=== PATIENT | male | born 1960 | race Caucasian/White ===

== ENCOUNTER 2024-02-25 12:48 | Observation (INO) | payer OTHER, SELFPAY ==
[2024-02-25] VITALS (16 sets, daily range): BP systolic 100–140; BP diastolic 68–95; PULSE 78–96; RESP 14–20; TEMP 36.4–36.6; O2SAT 93–100; BMI 32.8
--- NOTE | ~2024-02-25 | XR_ITS ---
EXAMINATION: XR chest 2V DATE: 02/25/2024 13:37 INDICATION: Supraventricular tachycardia. TECHNIQUE: Frontal and lateral views of the chest were obtained. COMPARISON: None. FINDINGS: Calcified right lung nodules are consistent with old granulomatous disease. No pleural effu mani or pneumothorax. The heart size is normal. IMPRESSION: 1. No acute cardiopulmonary disease. Reviewed, dictated and finalized at location B.
--- NOTE | 2024-02-25 12:52 | ECG_ITS ---
Test Date: 2024-02-25 13:01:49 Measurements Intervals [place] Rate: 96 P: 6 VA: 137 QRS: -19 QRSD: 103 T: 22 QT: 376 QTc: 475 Interpretive Statements SINUS RHYTHM POSSIBLE LEFT ATRIAL ENLARGEMENT [-0.1mV P-WAVE IN V1/V2] POSSIBLE LEFT VENTRICULAR HYPERTROPHY [VOLTAGE CRITERIA PLUS LAE OR QRS WIDENING] No previous ECG available for comparison Electronically Signed On 02-25-2024 14:49:25 CDT by Cirilo Montague M.D.
[2024-02-25 13:06] LABS: Basophils Percent Auto 0.5 % (0.2-1.2); Eosinophils Absolute Auto 0.1 K/mm3 (0-0.3); Eosinophils Percent Auto 1.3 % (0-4.4); Hematocrit 45.1 % (42.0-52.0); Hemoglobin 16.1 g/dL (14.0-18.0); Immature Granulocyte Absolute 0.03 K/mm3 (0.00-0.031); Immature Granulocyte Percent A 0.5 % (0-0.5); Lymphocytes Absolute Auto 1.17 K/mm3 (0.9-3.2); Mean Corpuscular HGB Conc 35.7 g/dl (32-36); Mean Corpuscular Hemoglobin 33.8 pg (26-34); Mean Corpuscular Volume 94.7 fl (80-100); Mean Platelet Volume 8.8 fl (7.4-10.4); Monocytes Absolute Auto 0.2 K/mm3 (0.1-0.6); Monocytes Percent Auto 2.7 % (2.6-8.5); Neutrophils Absolute Auto 4.1 K/mm3 (1.3-6.7); Platelet Count Result 168 k/mm3 (150-375); Red Blood Count 4.76 M/mm3 (4.6-6.20); Red Cell Distribution Width 13.7 % (11.5-14.5); White Blood Count 5.6 K/mm3 (4.5-10.0)
[2024-02-25 13:16] LABS: Alanine Aminotransferase 37 U/L (6-50); Albumin Level 4.1 g/dL (3.5-5.1); Alkaline Phosphatase 134 U/L (38-126); Anion Gap 11 mmol/L (4-12); Aspartate Amino Transferase 43 U/L (17-59); Bilirubin,Total 0.8 mg/dL (0.2-1.3); Blood Urea Nitrogen 21 mg/dL (9-20); Calcium 9.1 mg/dL (8.4-10.2); Carbon Dioxide 23 mmol/L (22-30); Chloride 105 mmol/L (98-107); Estimated Glomerular Filt Rate 38; Glucose 247 mg/dL (65-110); Lipase 59 U/L (23-300); Potassium 3.7 mmol/L (3.4-5.0); Sodium 139 mmol/L (137-145)
[2024-02-25 13:26] LABS: Troponin I 0.013 ng/mL (0.000-0.034)
[2024-02-25 13:31] LABS: INR 1.1; Prothrombin Time 14.7 Seconds (11.1-14.7)
[2024-02-25 13:34] LABS: Partial Thromboplastin Time 25.4 Seconds (22.3-36.8)
--- NOTE | 2024-02-25 14:08 | ED_ITS ---
HPI - Arrhythmia/Palpitations General Chief Complaint: Arrhythmia/Palpitations Stated Complaint: SVT - resolved Time Seen by Provider: 02/25/24 13:50 History of Present Illness HPI narrative: Pt presents afer episode of CP and SOB starting at 1000. Medics arrived and pt was in SVT. Pt has history of SVT and has been chmically cardioverted several times. Pt was cardioverted under sedation one time. Pt has not seen a cosmetologist apprentice for awhile. Prior cosmetologist apprentice in [place] retired and he has seen a cosmetologist apprentice in [place] but can't remember the name. Pt was synchronized cardioverted by EMS. Pt no longer has CP or SOB. Pt has also had ablation in past. Related Data Home Medications Medication Instructions Recorded Confirmed apixaban 5 mg tablet 5 mg PO BID 02/25/24 02/25/24 tamsulosin 0.4 mg capsule 0.4 mg PO DAILY 02/25/24 02/25/24 Allergies Allergy/AdvReac Type Severity Reaction Status Date / Time [id number] Reductase AdvReac Muscle Pain Verified 02/25/24 13:24 Inhibitor Review of Systems Review of Systems: All systems reviewed & are unremarkable except as noted in HPI and below PMFSH Past Medical History Medical History Atrial fibrillation GERD (gastroesophageal reflux disease) HLD (hyperlipidemia) HTN (hypertension) SVT (supraventricular tachycardia) Urinary hesitancy Surgical History Surgical History History of cardiac radiofrequency ablation History of fracture of left hip miriam implant, 2010 History of lumbar fusion L3-L5 History of rotator cuff surgery R 11/2023, L 2021 Family History Family History Father Acute myocardial infarction Hypertension Sibling Hypertension Social History Social History Smoking packs per day: 1 Smoking cigarettes per day: 20.0 Years smoked: 40 Smoking pack-years: 40.00 Smoking status: Former smoker Tobacco type: cigarettes Second hand tobacco smoke exposure: Yes Additional smoking assessment comments: quit 2003 Alcohol intake: current Substance use: never Do You Feel Safe in your Home?: Yes Lack of Transportation: No Lack of Food: Never True Current Housing: I Have Housing Concerned About Future Housing: No Difficulty Paying Gas/Electric Bills: No Difficulty Paying for Meds: No Currently Unemployed: No Education: Bachelor's Degree Difficulty w/ Childcare or Family Care: No Spiritual care concerns: No Exam Const: General: healthy appearing and no acute distress Nutritional Appearance: well nourished Orientation/consciousness: patient oriented x3 Limitations: no limitations Eyes: Conjunctivae: conjunctivae normal Pupils: Equal, round and reactive pupils present EOM: EOMs intact bilaterally Chest: Chest palpation & inspection: normal inspection of the chest Resp: Effort & Inspection: normal respiratory effort Auscultation: clear to auscultation bilaterally Cardio: Rate: regular rate Rhythm: regular rhythm GI: Auscultation: normal bowel sounds Skin: General skin exam: normal color Rashes: no rashes Wounds: no wounds Neuro: General: patient oriented x3, moves all extremities, no meningeal sig ns, no focal motor deficits and CN's II-XI intact bilaterally Cranial nerves: Yes Nystagmus not present Speech: normal speech Extrem: General: normal to inspection, no clubbing, cyanosis or edema and no pedal edema Psych: Mental Status: mental status grossly normal Affect: normal affect Attitude: cooperative Course Vital Signs Vital signs: Vital Signs Temperature 97.8 F 02/25/24 12:55 Pulse Rate 90 02/25/24 12:55 Respiratory Rate 16 02/25/24 12:55 Blood Pressure 110/80 02/25/24 12:55 Pulse Oximetry 96 02/25/24 12:55 Oxygen Delivery Room Air 02/25/24 12:55 Temperature 97.6 F 02/25/24 19:54 Pulse Rate 83 02/25/24 21:59 Respiratory Rate 18 02/25/24 19:54 Blood Pressure 131/92 H 02/25/24 20:05 Pulse Oximetry 99 02/25/24 19:54 Oxygen Delivery Room Air 02/25/24 12:55 MDM - Arrhythmia/Palpitations MDM Narrative Medical decision making narrative: Pt had svt per EMS with CP and SOB. Not sure of BP. Pt cardioverted and now in nsr and has no CP or SOB. Will check ekg and labs and cxr. labs look fine pt has no CP. Pt had syncopal episode in radiology but did not injure self. will admit for observation. discussed with Leatha and she agrees to observation under Dr Iyer. Differential Diagnosis Differential diagnosis: Likely palpitations, sinus tachycardia, supraventricular tachycardia, ventricular tachycardia and WPW Lab Data 02/25/24 13:01 02/25/24 13:01 Labs: Lab Results 02/25/24 02/25/24 Range/Units 13:01 16:36 WBC 5.6 (4.5-10.0) K/mm3 RBC 4.76 (4.6-6.20) M/mm3 Hgb 16.1 (14.0-18.0) g/dL Hct 45.1 (42.0-52.0) % MCV 94.7 (80-100) fl MCH 33.8 (26-34) pg MCHC 35.7 (32-36) g/dl RDW 13.7 (11.5-14.5) % Plt Count 168 (150-375) k/mm3 MPV 8.8 (7.4-10.4) fl Immature Gran % (Auto) 0.5 (0-0.5) % Neut % (Auto) 74.0 H (45.5-73.1) % Lymph % (Auto) 21.0 (18.3-44.2) % [place] % (Auto) 2.7 (2.6-8.5) % Eos % (Auto) 1.3 (0-4.4) % Baso % (Auto) 0.5 (0.2-1.2) % Lymph # (Auto) 1.17 (0.9-3.2) K/mm3 [place] # (Auto) 0.2 (0.1-0.6) K/mm3 Eos # (Auto) 0.1 (0-0.3) K/mm3 Baso # (Auto) 0.0 (0.0-0.1) K/mm3 Abs Immat Gran (auto) 0.03 (0.00-0.031) K/mm3 Absolute Neuts (auto) 4.1 (1.3-6.7) K/mm3 Absolute Nucleated RBC 0.000 (0.0-0.012) K/mm3 Nucleated RBC % 0.0 (0.0-0.2) % PT 14.7 (11.1-14.7) Seconds INR 1.1 APTT 25.4 (22.3-36.8) Seconds Sodium 139 (137-145) mmol/L Potassium 3.7 (3.4-5.0) mmol/L Chloride 105 (98-107) mmol/L Carbon Dioxide 23 (22-30) mmol/L Anion Gap 11 (4-12) mmol/L BUN 21 H (9-20) mg/dL Creatinine 1.80 H (0.7-1.3) mg/dL Estim Creat Clear Calc Not Reportable Estimated GFR 38 L (59 - ) Glucose 247 H (65-110) mg/dL Calcium 9.1 (8.4-10.2) mg/dL Magnesium 1.7 (1.6-2.3) mg/dL Total Bilirubin 0.8 (0.2-1.3) mg/dL AST 43 (17-59) U/L ALT 37 (6-50) U/L Alkaline Phosphatase 134 H (38-126) U/L Troponin I 0.013 0.375 H* D (0.000-0.034) ng/mL Total Protein 7.0 (6.3-8.2) g/dL Albumin 4.1 (3.5-5.1) g/dL Lipase 59 (23-300) U/L TSH (Reflex) 2.830 (0.465-4.68) uIU/mL Discharge Plan Discharge Clinical Impression: SVT (supraventricular tachycardia), Syncope Patient Disposition: Still a Patient Condition: Stable
--- NOTE | 2024-02-25 15:18 | PM.IMHP ---
H&P: HPI History of Present Illness Date/Time: 02/25/24 15:18 Chief Complaint: Chest Pain and SOB Narrative: 64 y/o M presents here with shortness of breath and chest pain with PMH of SVT, HTN, and AFib. The patient presents here from home via EMS for further evaluation of chest pain, shortness of breath, diaphoresis, and palpitations. Sudden onset of the symptoms occurred at 10:00 a.m. while he was laying down in bed. Upon EMS arrival he was placed on a teletypesetter monitor which showed SVT. He was administered 4 mg of morphine and a synchronized shock was delivered via EMS and he was restored to normal sinus rhythm. Symptoms resolved with gnosticist of NSR. Patient then had a syncopal episode while in imaging, telemetry strip not captured during event. He reports he had stood up for his CXR and was holding the bars, he does not remember the event or having symptoms before. States he had general malaise after episode for about 30 mins and has since resolved. He reports a previous history of SVT which has been treated with cardioversion x3, converted via medications x3, and ablation x3 with last occurrence in November of 2023. [facility] and follows a leadership development instructor there with most recent appt in late November. Does not currently have scheduled follow-up with his leadership development instructor. Would like to find cardiac care outside of the [facility]. No previously known hx of DM. Initial VS at presentation: 97.8? F, HR 90, RR 16, 110/80, and 96% on RA. ED workup showed: No leukocytosis, no anemia, normal coags, creatinine 1.8 and GFR 38 (no previous available for comparison), glucose 247, and initial troponin 0.013. CXR showed no acute cardiopulmonary disease. Initial EKG showed sinus rhythm and possible left atrial enlargement and possible left ventricular hypertrophy. Review of Systems Review of Systems: All systems reviewed & are unremarkable except as noted in HPI and below REPLACED BY [facility] Past Medical History Medical History Atrial fibrillation GERD (gastroesophageal reflux disease) HLD (hyperlipidemia) HTN (hypertension) SVT (supraventricular tachycardia) Urinary hesitancy Surgical History Surgical History History of cardiac radiofrequency ablation History of fracture of left hip miriam implant, 2010 History of lumbar fusion L3-L5 History of rotator cuff surgery R 11/2023, L 2021 Family History Family History Father Acute myocardial infarction Hypertension Sibling Hypertension Social History Social History Smoking packs per day: 1 Smoking cigarettes per day: 20.0 Years smoked: 40 Smoking pack-years: 40.00 Smoking status: Former smoker Tobacco type: cigarettes Second hand tobacco smoke exposure: Yes Additional smoking assessment comments: quit 2003 Alcohol intake: current Substance use: never Do You Feel Safe in your Home?: Yes Lack of Transportation: No Lack of Food: Never True Current Housing: I Have Housing Concerned About Future Housing: No Difficulty Paying Gas/Electric Bills: No Difficulty Paying for Meds: No Currently Unemployed: No Education: Bachelor's Degree Difficulty w/ Childcare or Family Care: No Spiritual care concerns: No Meds Home Medications and Allergies Home Medications Medication Instructions Recorded Confirmed Type apixaban 5 mg tablet 5 mg PO BID 02/25/24 02/25/24 History tamsulosin 0.4 mg capsule 0.4 mg PO DAILY 02/25/24 02/25/24 History Allergies Allergy/AdvReac Type Severity Reaction Status Date / Time [id number] Reductase AdvReac Muscle Pain Verified 02/25/24 13:24 Inhibitor Vital Signs Vital Signs - 24 hr 02/25/24 12:55 02/25/24 14:00 02/25/24 13:30 Temperature 97.8 F Pulse Rate 90 96 95 Respiratory Rate 16 16 16 Blood Pressure 110/80 100/74 101/75 Pulse Oximetry 96 93 93 Oxygen Delivery Room Air Exam Const: General: comfortable and no acute distress Other: , male, nontoxic appearance, obese body habitus HENMT: Face/Nose/Sinus: Normal nares present Mouth: Yes moist mucous membranes Eyes: General: appearance normal, both eyes and all related structures Sclera: sclerae normal Pupils: Equal, round and reactive pupils present EOM: EOMs intact bilaterally Resp: Effort & Inspection: normal respiratory effort Auscultation: clear to auscultation bilaterally Cardio: Rate: regular rate Rhythm: regular rhythm Other: S1-S2 present without murmur, rub, ectopy GI: Other: Abdomen rounded, soft, nontender. Normoactive bowel sounds in all quadrants. Skin: General skin exam: no rashes or lesions noted Wounds: no wounds Other: +odette appearance Neuro: Speech: normal speech Motor exam (neuro): 5/5 motor strength present throughout Sensory Exam: normal sensation Other: A&O x4 Extrem: General: normal to inspection Psych: Mental Status: mental status grossly normal Affect: normal affect Other: Good insight and judgment, pleasant H&P: Results Labs Labs: Short CBC 02/25/24 Range/Units 13:01 WBC 5.6 (4.5-10.0) K/mm3 Hgb 16.1 (14.0-18.0) g/dL Hct 45.1 (42.0-52.0) % Plt Count 168 (150-375) k/mm3 BMP 02/25/24 13:01 Sodium 139 Potassium 3.7 Chloride 105 Carbon Dioxide 23 BUN 21 H Creatinine 1.80 H Glucose 247 H Calcium 9.1 Cardiac Enzymes 02/25/24 Range/Units 13:01 Troponin I 0.013 (0.000-0.034) ng/mL Liver Function 02/25/24 Range/Units 13:01 Total Bilirubin 0.8 (0.2-1.3) mg/dL AST 43 (17-59) U/L ALT 37 (6-50) U/L Alkaline Phosphatase 134 H (38-126) U/L Albumin 4.1 (3.5-5.1) g/dL Assessment and Plan Assessment and plan (1) SVT (supraventricular tachycardia): Code(s): I47.10 - Supraventricular tachycardia, unspecified Status: Acute Assessment and Plan: - EKG, initial: Sinus rhythm, possible left atrial enlargement, possible left ventricular hypertrophy. No previous EKG available for comparison - CXR: No acute cardiopulmonary disease - Troponin: 0.013 -> 0.375, and 3rd troponin ordered. Suspect elevations secondary to cardioversion. No active chest pain. - ASA 324 given - after shared decision making with patient, will hold on Cardiology consultation given chronicity of SVT and lack of chest pain. If 6 hour troponin is significantly elevated compared to prior or if patient has secondary recurrence of symptoms, will add on consultation - add TSH - Mag 1.7, give 1G - no previous echo on file, add bnp - telemetry monitoring (2) Syncope: Code(s): R55 - Syncope and collapse Status: Acute Assessment and Plan: - DDx: MS, orthostatic hypotension, atrial fibrillation, SVT - telemetry monitoring and admission to IMU - trend troponin - orthostatic VS (3) Hyperglycemia: Code(s): R73.9 - Hyperglycemia, unspecified Status: Acute Assessment and Plan: - no hx of DM2 - hypoglycemia protocol - POC blood glucose ACHS - correct regimen ordered - low dose TIDWM, based off TDD - A1C ordered - parent educator consulted (4) HTN (hypertension): Qualifiers: Hypertension type: primary hypertension Qualified Code(s): I10 - Essential (primary) hypertension Code(s): I10 - Essential (primary) hypertension Status: Chronic Assessment and Plan: - chronic, currently 138/90 - continue home medications upon completion of med rec - monitor Plan Partial med rec completed, obtaining records from [facility] for complete medication list. Diet: Heart healthy GI Prophylaxis: Not currently indicated DVT Prophylaxis: Eliquis Lines: Peripheral Code Status: Full code Quality VTE Prophylaxis VTE prophylaxis: pharmacologic ordered Hospitalist MIPS Advance Care Plan I have confirmed that the patient's Advanced Care Plan is present, code status is documented, or surrogate decision maker is listed in patient medical record.: Yes Medication Reconciliation I have utilized all available resources to obtain, update and review the patients current medications (includes all prescriptions, OTC, herbals, cannabis, and nutritional supplements).: Yes
--- NOTE | 2024-02-25 15:51 | ECG_ITS ---
Test Date: 2024-02-25 16:50:14 Measurements Intervals [place] Rate: 79 P: 47 [place]: 188 QRS: -24 QRSD: 98 T: 0 QT: 382 QTc: 439 Interpretive Statements SINUS RHYTHM BORDERLINE LEFT AXIS DEVIATION [QRS AXIS < -20] POSSIBLE LEFT VENTRICULAR HYPERTROPHY [VOLTAGE CRITERIA PLUS LAE OR QRS WIDENING] Compared to ECG 02/25/2024 13:01:49 No significant changes Electronically Signed On 02-26-2024 11:38:44 CDT by Harris Nevarez M.D.
[2024-02-25 16:52] LABS: Magnesium 1.7 mg/dL (1.6-2.3)
[2024-02-25 17:12] LABS: Troponin I 0.375 ng/mL (0.000-0.034)
[2024-02-25] MEDS: MAGNESIUM SULF 1 GM/D5W 100 ML 1 GM/100 ML BAG IVPB (17:16)
--- NOTE | 2024-02-25 17:25 | PC.NURSE ---
GAURAV RIBEIRO IN IMU IS FEEDING A PT AND UNABLE TO TAKE REPORT AT THIS TIME. WILL CALL BACK WHEN AVAILABLE
--- NOTE | 2024-02-25 19:00 | ADMGEN ---
This patient, Markell Rodriguez, was admitted to IMU Room 209-. Patient/family oriented to hospital policies and general routines including ID bracelet, bed and alarms, visiting hours, pain management, procedures, bathroom and other care routines, personal items, smoking policy, room service/diet, and visiting hours. Information on how to activate the Rapid Response Team has been discussed. Patient/Family are encouraged to report perceived risks to care and to ask questions if they do not understand what they are told or what they should do.
[2024-02-25 20:03] LABS: Glucose Point of Care 151 mg/dl (65-105)
[2024-02-25 20:29] LABS: NT Pro B Type Natriuretic Pept 741 pg/mL (19.9-100)
--- NOTE | 2024-02-25 20:34 | ECG_ITS ---
Test Date: 2024-02-25 20:37:38 Measurements Intervals [place] Rate: 83 P: 4 VT: 195 QRS: -20 QRSD: 98 T: 9 QT: 373 QTc: 439 Interpretive Statements SINUS RHYTHM POSSIBLE LEFT VENTRICULAR HYPERTROPHY [VOLTAGE CRITERIA PLUS LAE OR QRS WIDENING] Compared to ECG 02/25/2024 16:50:14 No significant changes Electronically Signed On 02-26-2024 11:41:29 CDT by Harris Nevarez M.D.
[2024-02-25 20:37] LABS: Troponin I 0.767 ng/mL (0.000-0.034)
[2024-02-26] VITALS (14 sets, daily range): BP systolic 131–160; BP diastolic 75–110; PULSE 69–108; RESP 16–19; TEMP 36.6–36.8; O2SAT 93–96
[2024-02-26 05:40] LABS: Hemoglobin A1C 5.4 % (<5.7)
[2024-02-26 08:41] LABS: Glucose Point of Care 109 mg/dl (65-105)
[2024-02-26] MEDS: APIXABAN 5 MG TABLET PO (08:45)
[2024-02-26] MEDS: TAMSULOSIN HCL 0.4 MG CAPSULE PO (08:45)
--- NOTE | 2024-02-26 08:52 | P.CONCA_ITS ---
in addition to above, trend troponin to peak Assessment and Plan Assessment and plan (1) SVT (supraventricular tachycardia): Code(s): I47.10 - Supraventricular tachycardia, unspecified Status: Acute Assessment and Plan: Symptomatic SVT resolved with synchronized cardioversion. He remains in sinus rhythm * Continue Toprol XL 50mg daily * Increase Diltiazem to 360mg daily * Magnesium 1.7 and has been repleted * Recommend outpatient EP referral for consideration of SVT ablation (2) Syncope: Code(s): R55 - Syncope and collapse Status: Acute Assessment and Plan: Etiology unclear. Possibly related to orthostatic hypotension. * Check orthostatic vital signs * Continue telemetry (3) CAD (coronary artery disease): Code(s): I25.10 - Atherosclerotic heart disease of [place] coronary artery without angina pectoris Status: Acute Assessment and Plan: Nonobstructive coronary artery disease, [facility] October 2023 as detailed in HPI * Continue ASA * Continue rosuvastatin 20mg daily * Risk factor modifications for CAD (4) Elevated troponin: Code(s): R79.89 - Other specified abnormal findings of blood chemistry Status: Acute Assessment and Plan: This is not related to ACS/acute plaque rupture. Most likely secondary to tachycardia and cardioversion (5) Atrial fibrillation: Code(s): I48.91 - Unspecified atrial fibrillation Status: Acute Assessment and Plan: Has had multiple AF ablations in the past. Continue Eliquis. Plan Can be discharged later today if he remains stable and asymptomatic. He should follow up with [facility] (has already contacted [facility] in [place] for appt.). History of Present Illness History of Present Illness Consult date/time: 02/26/24 08:52 Reason For Visit: SVT / syncope Narrative: Markell Rodriguez is a 64 year old male with HIV, coronary artery disease, paroxys mal atrial fibrillation, and paroxysmal SVT. He has undergone multiple AF ablations and has had symptomatic SVT for which he takes metoprolol and diltiazem for. He reports 3 episodes of SVT in the past 6 months. In October of this year he was hospitalized after an episode of SVT and chest pain where he underwent left heart catheterization and was found to have nonobstructive coronary artery disease with 50% stenosis in the LCS and 60% stenosis of the ostial PDA. He previously followed with [facility] in [place] but he has since moved to the area and is in the process of becoming established with [facility] in this area. He presented to the emergency department with complaints of chest pain and shortness of breath. Yesterday morning he felt a sudden onset of palpitations with an associated sensation of tightness in his throat and shortness of breath. He called EMS and was found to be in SVT. He was cardioverted by EMS with jehovah's witness of sinus rhythm and brought to the emergency department for further evaluation. His symptoms resolved with jehovah's witness of sinus rhythm. He also reports a syncopal episode that occurred while he was in radiology. He states he was standing up and the next thing he knew he was on the floor. He did not have any symptoms prior to losing consciousness. Telemetry was not in use at the time of syncope. He has had one syncopal episode prior to this that happened at home about 6 months ago. Currently he remains in sinus rhythm and denies any chest pain or shortness of breath. Review of Systems Review of Systems: All systems reviewed & are unremarkable except as noted in HPI and below PMFSH Past Medical History Medical History Atrial fibrillation GERD (gastroesophageal reflux disease) HLD (hyperlipidemia) HTN (hypertension) SVT (supraventricular tachycardia) Urinary hesitancy Surgical History Surgical History History of cardiac radiofrequency ablation History of fracture of left hip miriam implant, 2010 History of lumbar fusion L3-L5 History of rotator cuff surgery R 11/2023, L 2021 Family History Family History Father Acute myocardial infarction Hypertension Sibling Hypertension Social History Social History Smoking packs per day: 1 Smoking cigarettes per day: 20.0 Years smoked: 40 Smoking pack-years: 40.00 Smoking status: Former smoker Tobacco type: cigarettes Second hand tobacco smoke exposure: Yes Additional smoking assessment comments: quit 2003 Alcohol intake: current Substance use: never Do You Feel Safe in your Home?: Yes Lack of Transportation: No Lack of Food: Never True Current Housing: I Have Housing Concerned About Future Housing: No Difficulty Paying Gas/Electric Bills: No Difficulty Paying for Meds: No Currently Unemployed: No Education: Bachelor's Degree Difficulty w/ Childcare or Family Care: No Spiritual care concerns: No Meds Home Medications and Allergies Home Medications Medication Instructions Recorded Confirmed Type apixaban 5 mg tablet 5 mg PO BID 02/25/24 02/25/24 History tamsulosin 0.4 mg capsule 0.4 mg PO DAILY 02/25/24 02/25/24 History Allergies Allergy/AdvReac Type Severity Reaction Status Date / Time [id number] Reductase AdvReac Muscle Pain Verified 02/25/24 13:24 Inhibitor Vital Signs Vital Signs - 24 hr 02/25/24 12:55 02/25/24 14:00 02/25/24 13:30 Temperature 36.6 C Pulse Rate 90 96 95 Respiratory Rate 16 16 16 Blood Pressure 110/80 100/74 101/75 Pulse Oximetry 96 93 93 Oxygen Delivery Room Air 02/25/24 14:30 02/25/24 15:00 02/25/24 15:30 Temperature Pulse Rate 89 82 82 Respiratory Rate 16 16 14 Blood Pressure 117/93 H 101/73 114/68 Pulse Oximetry 95 94 95 Oxygen Delivery 02/25/24 16:00 02/25/24 16:30 02/25/24 17:58 Temperature Pulse Rate 79 78 81 Respiratory Rate 20 16 16 Blood Pressure 133/90 125/83 127/85 Pulse Oximetry 99 100 100 Oxygen Delivery 02/25/24 18:56 02/25/24 19:54 02/25/24 19:36 Temperature 36.5 C 36.4 C 36.4 C Pulse Rate 79 84 84 Respiratory Rate 18 18 18 Blood Pressure 138/90 137/93 H 137/93 H Pulse Oximetry 93 99 99 Oxygen Delivery 02/25/24 20:00 02/25/24 19:50 02/25/24 20:05 Temperature Pulse Rate 85 Respiratory Rate Blood Pressure 140/95 H 131/92 H Pulse Oximetry Oxygen Delivery 02/25/24 21:59 02/26/24 01:41 02/26/24 00:00 Temperature 36.6 C Pulse Rate 83 73 78 Respiratory Rate 18 Blood Pressure 132/75 Pulse Oximetry 93 Oxygen Delivery 02/26/24 02:00 02/26/24 04:00 02/26/24 05:16 Temperature 36.6 C Pulse Rate 69 108 H 76 Respiratory Rate 18 Blood Pressure 139/90 Pulse Oximetry 93 Oxygen Delivery 02/26/24 06:00 02/26/24 08:00 02/26/24 08:00 Temperature 36.7 C Pulse Rate 79 69 79 Respiratory Rate 16 Blood Pressure 149/89 H Pulse Oximetry 95 Oxygen Delivery 02/26/24 08:00 Temperature Pulse Rate 79 Respiratory Rate 16 Blood Pressure Pulse Oximetry 95 Oxygen Delivery Room Air Exam Const: General: comfortable, no acute distress, alert and awake Orientation/consciousness: patient oriented x3 HENMT: Head: normal to inspection Eyes: General: appearance normal, both eyes and all related structures Pupils: Equal, round and reactive pupils present Neck: Neck: normal visual inspection, supple and no JVD Carotids: normal carotid upstroke Resp: Effort & Inspection: normal respiratory effort Auscultation: clear to auscultation bilaterally Cardio: Rate: regular rate Rhythm: regular rhythm Heart sounds: S1 normal heart sound present, S2 normal heart sound present and no murmurs GI: Auscultation: normal bowel sounds Skin: General skin exam: normal color Neuro: General: patient oriented x3 Cranial nerves: Yes Equal, round and reactive pupils present Extrem: General: normal to inspection Psych: Appearance: grossly normal Mental Status: mental status grossly norm al Results Labs and Meds 02/25/24 13:01 02/25/24 13:01 Lab results: Cardiac Enzymes 02/25/24 02/25/24 02/25/24 Range/Units 13:01 16:36 20:02 AST 43 (17-59) U/L Troponin I 0.013 0.375 H* D 0.767 H* D (0.000-0.034) ng/mL Coagulation 02/25/24 Range/Units 13:01 PT 14.7 (11.1-14.7) Seconds APTT 25.4 (22.3-36.8) Seconds CBC 02/25/24 Range/Units 13:01 WBC 5.6 (4.5-10.0) K/mm3 RBC 4.76 (4.6-6.20) M/mm3 Hgb 16.1 (14.0-18.0) g/dL Hct 45.1 (42.0-52.0) % Plt Count 168 (150-375) k/mm3 Lymph # (Auto) 1.17 (0.9-3.2) K/mm3 [place] # (Auto) 0.2 (0.1-0.6) K/mm3 Eos # (Auto) 0.1 (0-0.3) K/mm3 Baso # (Auto) 0.0 (0.0-0.1) K/mm3 Comprehensive Metabolic Panel 02/25/24 Range/Units 13:01 Sodium 139 (137-145) mmol/L Potassium 3.7 (3.4-5.0) mmol/L Chloride 105 (98-107) mmol/L Carbon Dioxide 23 (22-30) mmol/L BUN 21 H (9-20) mg/dL Creatinine 1.80 H (0.7-1.3) mg/dL Glucose 247 H (65-110) mg/dL Calcium 9.1 (8.4-10.2) mg/dL AST 43 (17-59) U/L ALT 37 (6-50) U/L Alkaline Phosphatase 134 H (38-126) U/L Total Protein 7.0 (6.3-8.2) g/dL Albumin 4.1 (3.5-5.1) g/dL Intake and Output 02/25/24 02/26/24 02/26/24 23:59 07:59 15:59 Intake Total 360 550 Balance 360 550 Intake: Oral 360 550 Patient Weight 02/26/24 23:59 Weight 118.9 kg
[2024-02-26 12:15] LABS: Glucose Point of Care 112 mg/dl (65-105)
--- NOTE | 2024-02-26 13:00 | P.DS_ITS ---
DS: Admitting Diagnosis Discharge Date 05/28/2023 Admitting Diagnosis Chest Pain and SOB DS: Discharge Diagnosis Discharge Diagnosis Plan 1) SVT (supraventricular tachycardia): Code(s): I47.10 - Supraventricular tachycardia, unspecified Status: Acute Assessment and Plan: Symptomatic SVT resolved with synchronized cardioversion. He remains in sinus rhythm * Continue Toprol XL 50mg daily * Increase Diltiazem to 360mg daily * Magnesium 1.7 and has been repleted * Recommend outpatient EP referral for consideration of SVT ablation(2) Syncope: Code(s): R55 - Syncope and collapse Status: Acute Assessment and Plan: Etiology unclear. Possibly related to orthostatic hypotension. * Check orthostatic vital signs * Continue telemetry(3) CAD (coronary artery disease): Code(s): I25.10 - Atherosclerotic heart disease of [place] coronary artery without angina pectoris Status: Acute Assessment and Plan: Nonobstructive coronary artery disease, [facility] October 2023 as detailed in HPI * Continue ASA * Continue rosuvastatin 20mg daily * Risk factor modifications for CAD (4) Elevated troponin: Code(s): R79.89 - Other specified abnormal findings of blood chemistry Status: Acute Assessment and Plan: This is not related to ACS/acute plaque rupture. Most likely secondary to tachycardia and cardioversion (5) Atrial fibrillation: Code(s): I48.91 - Unspecified atrial fibrillation Status: Acute Assessment and Plan: Has had multiple AF ablations in the past. Continue Eliquis. DS: Summary Hospital Course Hospital Course: Pt successfully cardioverted the next day ok to dc as per cardiology MD. Pt back to NSR ok to DC. Time Spent with Patient Time attestation: Total time spent providing and/or coordinating discharge services:25 minutes on day of dc Exam Narrative: 64 y/o M presents here with shortness of breath and chest pain with PMH of SVT, HTN, and AFib. The patient presents here from home via EMS for further evaluation of chest pain, shortness of breath, diaphoresis, and palpitations. Sudden onset of the symptoms occurred at 10:00 a.m. while he was laying down in bed. Upon EMS arrival he was placed on a desk monitor which showed SVT. He was administered 4 mg of morphine and a synchronized shock was delivered via EMS and he was restored to normal sinus rhythm. Symptoms resolved with [facility] of NSR. Patient then had a syncopal episode while in imaging, telemetry strip not captured during event. He reports he had stood up for his CXR and was holding the bars, he does not remember the event or having symptoms before. States he had general malaise after episode for about 30 mins and has since resolved. He reports a previous history of SVT which has been treated with cardioversion x3, converted via medications x3, and ablation x3 with last occurrence in November of 2023. [facility] and follows a operation research analyst there with most recent appt in late November. Does not currently have scheduled follow-up with his operation research analyst. [facility] No previously known hx of DM. Initial VS at presentation: 97.8? F, HR 90, RR 16, 110/80, and 96% on RA. ED workup showed: No leukocytosis, no anemia, normal coags, creatinine 1.8 and GFR 38 (no previous available for comparison), glucose 247, and initial troponin 0.013. CXR showed no acute cardiopulmonary disease. Initial EKG showed sinus rhythm and possible left atrial enlargement and possible left ventricular hypertrophy. Const: General: comfortable and no acute distress Other: , male, nontoxic appearance, obese body habitus HENMT: Face/Nose/Sinus: Normal nares present Mouth: Yes moist mucous membranes Eyes: General: appearance normal, both eyes and all related structures Sclera: sclerae normal Pupils: Equal, round and reactive pupils present EOM: EOMs intact bilaterally Resp: Effort & Inspection: normal respiratory effort Auscultation: clear to auscultation bilaterally Cardio: Rate: regular rate Rhythm: regular rhythm Other: S1-S2 present without murmur, rub, ectopy GI: Other: Abdomen rounded, soft, nontender. Normoactive bowel sounds in all quadrants. Skin: General skin exam: no rashes or lesions noted Wounds: no wounds Other: +odette appearance Neuro: Cranial nerves: Yes Equal, round and reactive pupils present Speech: normal speech Motor exam (neuro): 5/5 motor strength present throughout Sensory Exam: normal sensation Other: A&O x4 Extrem: General: normal to inspection Psych: Mental Status: mental status grossly normal Affect: normal affect Other: Good insight and judgment, pleasant DS: Data Data Completed and Pending Labs on day of discharge: Labs from last 24 hours 10/31/24 10/31/24 10/31/24 11:03 07:32 05:03 WBC RBC Hgb Hct MCV MCH MCHC RDW Plt Count MPV Immature Gran % (Auto) Neut % (Auto) Lymph % (Auto) [place] % (Auto) Eos % (Auto) Baso % (Auto) Lymph # (Auto) [place] # (Auto) Eos # (Auto) Baso # (Auto) Abs Immat Gran (auto) Absolute Neuts (auto) Absolute Nucleated RBC Nucleated RBC % PT INR APTT Sodium Potassium Chloride Carbon Dioxide Anion Gap BUN Creatinine Estim Creat Clear Calc Estimated GFR Glucose POC Capillary Glucose 112 H 109 H Hemoglobin A1c 5.4 Calcium Magnesium Total Bilirubin AST ALT Alkaline Phosphatase Troponin I NT-Pro-B Natriuret Pep Total Protein Albumin Lipase TSH (Reflex) 02/25/24 02/25/24 02/25/24 20:02 19:51 16:36 WBC RBC Hgb Hct MCV MCH MCHC RDW Plt Count MPV Immature Gran % (Auto) Neut % (Auto) Lymph % (Auto) [place] % (Auto) Eos % (Auto) Baso % (Auto) Lymph # (Auto) [place] # (Auto) Eos # (Auto) Baso # (Auto) Abs Immat Gran (auto) Absolute Neuts (auto) Absolute Nucleated RBC Nucleated RBC % PT INR APTT Sodium Potassium Chloride Carbon Dioxide Anion Gap BUN Creatinine Estim Creat Clear Calc Estimated GFR Glucose POC Capillary Glucose 151 H Hemoglobin A1c Calcium Magnesium 1.7 Total Bilirubin AST ALT Alkaline Phosphatase Troponin I 0.767 H* D 0.375 H* D NT-Pro-B Natriuret Pep 741 H Total Protein Albumin Lipase TSH (Reflex) 2.830 02/25/24 13:01 WBC 5.6 RBC 4.76 Hgb 16.1 Hct 45.1 MCV 94.7 MCH 33.8 MCHC 35.7 RDW 13.7 Plt Count 168 MPV 8.8 Immature Gran % (Auto) 0.5 Neut % (Auto) 74.0 H Lymph % (Auto) 21.0 [place] % (Auto) 2.7 Eos % (Auto) 1.3 Baso % (Auto) 0.5 Lymph # (Auto) 1.17 [place] # (Auto) 0.2 Eos # (Auto) 0.1 Baso # (Auto) 0.0 Abs Immat Gran (auto) 0.03 Absolute Neuts (auto) 4.1 Absolute Nucleated RBC 0.000 Nucleated RBC % 0.0 PT 14.7 INR 1.1 APTT 25.4 Sodium 139 Potassium 3.7 Chloride 105 Carbon Dioxide 23 Anion Gap 11 BUN 21 H Creatinine 1.80 H Estim Creat Clear Calc Not Reportable Estimated GFR 38 L Glucose 247 H POC Capillary Glucose Hemoglobin A1c Calcium 9.1 Magnesium Total Bilirubin 0.8 AST 43 ALT 37 Alkaline Phosphatase 134 H Troponin I 0.013 NT-Pro-B Natriuret Pep Total Protein 7.0 Albumin 4.1 Lipase 59 TSH (Reflex) Discharge Plan Discharge Attending physician on discharge: Jimena Bautista Consulting providers: Harris Nevarez Discharging Clinician: Jimena Bautista Anticipated Discharge Date/Time: 02/26/24 12:59 Patient Disposition: Home, Self-Care Activity: as tolerated Diet: heart healthy Patient Instructions: Antibiotic Form, Coronary Artery Disease (DC), A-fib (Atrial Fibrillation) (DC), Supraventricular Tachycardia (DC), Syncope (DC), Chronic Hypertension (DC), High Troponin Levels (GEN) Stand Alone Forms: General Discharge Information Follow-up/Referrals: Bruno Radford MD [Physician] - (next week ) Discharge Medications: New diltiazem HCl 180 mg Capsule,Ext.Rel 24h Degradable 360 mg PO QAM Qty: 90 0RF Continued tamsulosin 0.4 mg Capsule 0.4 mg PO DAILY apixaban 5 mg Tablet 5 mg PO BID Date of admission: 02/25/24 17:06 Primary Care Provider: UNKNOWN,DOCTOR Admitting Provider: Miles Iyer Attending physician on admission: Miles Iyer Condition: Stable
[2024-02-26] MEDS: METOPROLOL TARTRATE 25 MG TABLET PO (13:56)
--- NOTE | 2024-02-26 14:26 | PC.NURSE ---
Reviewed all discharge instructions including medications and last doses received. Verbalizes understanding at this time. Denies further questions and concerns. States that ride should be here in approximately 30 min. Requested towels for shower, of which towels and soap was provided. electronic device monitor removed and IV removed intact. No acute distress noted.
--- NOTE | 2024-02-27 11:44 | PCCDE ---
02/27/24 ~11:40 am Generic message left on patient voice mail including my direct #. Consult received 02/24 at 19:36 - Pt DC'd 02/25 ~ 13:00 FJ
== END 2024-02-26 15:12 | disposition home or self-care (01) ==
LOC: ANHED 16:23 → ANHIMU 18:00
PROVIDERS: Student in an Organized Health Care Education/Training Program; Admitting Provider Hospitalist; Emergency Provider Emergency Medicine; Visit Provider Family Medicine
DX: I47.10 Supraventricular tachycardia, unspecified (principal); I48.91 Unspecified atrial fibrillation; R55 Syncope and collapse; R06.02 Shortness of breath; R79.89 Other specified abnormal findings of blood chemistry; R73.9 Hyperglycemia, unspecified; I10 Essential (primary) hypertension; I25.10 Atherosclerotic heart disease of native coronary artery without angina pectoris; E78.5 Hyperlipidemia, unspecified; K21.9 Gastro-esophageal reflux disease without esophagitis; Z79.01 Long term (current) use of anticoagulants; Z98.1 Arthrodesis status; Z87.891 Personal history of nicotine dependence; Z21 Asymptomatic human immunodeficiency virus [HIV] infection status; E66.9 Obesity, unspecified; Z68.32 Body mass index [BMI] 32.0-32.9, adult
CPT/HCPCS: 36415; 71046; 80053; 82948; 83036; 83690; 83735; 83880; 84443; 84484; 85025; 85610; 85730; 93005; 96374; 99285; A9270; G0378; J3475

== ENCOUNTER 2024-04-06 02:12 | Emergency (ER) | payer OTHER, SELFPAY ==
[2024-04-06] VITALS (9 sets, daily range): BP systolic 109–140; BP diastolic 86–101; PULSE 64–89; RESP 16–20; TEMP 36.6; O2SAT 94–97
--- NOTE | ~2024-04-06 | XR_ITS ---
Portable chest x-ray Comparison: 02/25/2024 Clinical History: Chest pain Findings: Calcified right basilar granuloma present. Lungs are otherwise clear. Cardiomediastinal s ilhouette is stable. Bones and soft tissues are unremarkable. Impression: No significant abnormality seen. Reviewed, dictated and finalized at [facility]. MAKING PLASTICS SHEETS SUPERVISOR Impression: No significant abnormality seen.
--- NOTE | 2024-04-06 02:28 | ECG_ITS ---
Test Date: 2024-04-06 05:29:08 Measurements Intervals [place] Rate: 74 P: 60 [place]: 195 QRS: -17 QRSD: 107 T: 7 QT: 387 QTc: 430 Interpretive Statements SINUS RHYTHM POSSIBLE LEFT VENTRICULAR HYPERTROPHY [VOLTAGE CRITERIA PLUS LAE OR QRS WIDENING] Compared to ECG 04/06/2024 02:19:16 No significant changes Electronically Signed On 04-06-2024 14:55:17 OPERATIONS EXPERT by Cirilo Montague M.D.
[2024-04-06 02:44] LABS: Basophils Percent Auto 0.7 % (0.2-1.2); Eosinophils Absolute Auto 0.1 K/mm3 (0-0.3); Eosinophils Percent Auto 1.8 % (0-4.4); Hematocrit 39.4 % (42.0-52.0); Hemoglobin 13.8 g/dL (14.0-18.0); Immature Granulocyte Absolute 0.02 K/mm3 (0.00-0.031); Immature Granulocyte Percent A 0.5 % (0-0.5); Lymphocytes Absolute Auto 0.98 K/mm3 (0.9-3.2); Lymphocytes Percent Auto 22.3 % (18.3-44.2); Mean Corpuscular Hemoglobin 32.9 pg (26-34); Mean Corpuscular Volume 93.8 fl (80-100); Mean Platelet Volume 8.4 fl (7.4-10.4); Monocytes Absolute Auto 0.4 K/mm3 (0.1-0.6); Monocytes Percent Auto 9.5 % (2.6-8.5); Neutrophils Absolute Auto 2.9 K/mm3 (1.3-6.7); Neutrophils Percent Auto 65.2 % (45.5-73.1); Platelet Count Result 119 k/mm3 (150-375); White Blood Count 4.4 K/mm3 (4.5-10.0)
[2024-04-06 02:54] LABS: Alanine Aminotransferase 34 U/L (6-50); Albumin Level 3.6 g/dL (3.5-5.1); Alkaline Phosphatase 98 U/L (38-126); Anion Gap 6 mmol/L (4-12); Aspartate Amino Transferase 35 U/L (17-59); Bilirubin,Total 0.4 mg/dL (0.2-1.3); Blood Urea Nitrogen 18 mg/dL (9-20); Calcium 8.5 mg/dL (8.4-10.2); Carbon Dioxide 24 mmol/L (22-30); Chloride 108 mmol/L (98-107); Estimated CRCL calculation 71 ml/min; Estimated Glomerular Filt Rate 51; Glucose 131 mg/dL (65-110); Lipase 55 U/L (23-300); Potassium 3.4 mmol/L (3.4-5.0); Sodium 138 mmol/L (137-145)
[2024-04-06 06:58] LABS: Troponin I 0.014 ng/mL (0.000-0.034)
--- NOTE | 2024-04-06 07:01 | ECG_ITS ---
Test Date: 2024-04-06 02:19:16 Measurements Intervals [place] Rate: 88 P: 32 SD: 161 QRS: -16 QRSD: 113 T: 15 QT: 386 QTc: 468 Interpretive Statements SINUS RHYTHM POSSIBLE LEFT VENTRICULAR HYPERTROPHY [VOLTAGE CRITERIA PLUS LAE OR QRS WIDENING] Compared to ECG 02/25/2024 20:37:38 NO SIGNIFICANT CHANGES Electronically Signed On 04-06-2024 14:54:18 SHEARING MACHINE TENDER by Cirilo Montague M.D.
--- NOTE | 2024-04-06 07:03 | PC.NURSE ---
Patient has denied chest pain during the past four hours of downtime. Patient was resting comfortably with lights dimmed.
--- NOTE | 2024-04-06 07:09 | ED.CHESTPAIN ---
HPI - Chest Pain General Chief Complaint: Chest Pain Stated Complaint: SVT - 18MG ADENOSINE Time Seen by Provider: 04/06/24 06:59 History of Present Illness HPI narrative: Patient with history of AFib with cardioversion in the past, SVT 2 months ago, already on rate control and blood thinner, presents here after having episode of restlessness and chest pain around midnight, he did call EMS and was given a 6 then 12 mg adenosine after which he converted. Denying any complaints currently. Has a golf tournament consultant appt in May. Related Data Home Medications ?Medication ?Instructions ?Recorded ?Confirmed ?Last Taken ?Type apixaban 5 mg tablet 5 mg PO BID 02/25/24 02/25/24 02/25/24 History tamsulosin 0.4 mg capsule 0.4 mg PO DAILY 02/25/24 02/25/24 02/25/24 History Allergies Allergy/AdvReac Type Severity Reaction Status Date / Time [id number] Reductase AdvReac Muscle Pain Verified 02/25/24 13:24 Inhibitor Review of Systems Review of Systems: All systems reviewed & are unremarkable except as noted in HPI and below PMFSH Past Medical History Medical History Atrial fibrillation GERD (gastroesophageal reflux disease) HLD (hyperlipidemia) HTN (hypertension) SVT (supraventricular tachycardia) Urinary hesitancy Surgical History Surgical History History of cardiac radiofrequency ablation History of fracture of left hip miriam implant, 2010 History of lumbar fusion L3-L5 History of rotator cuff surgery R 11/2023, L 2021 Family History Family History Father Acute myocardial infarction Hypertension Sibling Hypertension Social History Social History Smoking packs per day: 1 Smoking cigarettes per day: 20.0 Years smoked: 40 Smoking pack-years: 40.00 Smoking status: Former smoker Tobacco type: cigarettes Second hand tobacco smoke exposure: Yes Additional smoking assessment comments: quit 2003 Alcohol intake: current Substance use: never Do You Feel Safe in your Home?: Yes Lack of Transportation: No Lack of Food: Never True Current Housing: I Have Housing Concerned About Future Housing: No Difficulty Paying Gas/Electric Bills: No Difficulty Paying for Meds: No Currently Unemployed: No Education: Bachelor's Degree Difficulty w/ Childcare or Family Care: No Spiritual care concerns: No Exam Narrative: EXAMINATION OF ORGAN SYSTEMS/BODY AREAS: Constitutional: Vital signs per nursing GENERAL:[No acute distress, non-toxic appearing.] HEAD: Normal with no signs of head trauma. EYES: EOMI, conjunctiva normal ENT: Hearing grossly intact LUNGS: Nonlabored breathing. HEART: [Regular rate and rhythm] ABD: [Soft], [nontender to palpation] EXT: Normal range of motion SKIN: [No rashes or lesions.] NEURO: [Alert and oriented x 3. No gross focal sensory or strength deficits.] PSYCH: Normal affect Course Vital Signs Vital signs: Vital Signs Temperature 97.8 F 04/06/24 02:22 Pulse Rate 89 04/06/24 02:22 Respiratory Rate 20 04/06/24 02:22 Blood Pressure 127/97 H 04/06/24 02:22 Pulse Oximetry 95 04/06/24 02:22 Oxygen Delivery Room Air 04/06/24 02:22 Temperature 97.8 F 04/06/24 02:22 Pulse Rate 64 04/06/24 06:30 Respiratory Rate 16 04/06/24 06:30 Blood Pressure 128/86 04/06/24 06:30 Pulse Oximetry 95 04/06/24 06:30 Oxygen Delivery Room Air 04/06/24 02:22 MDM - Chest Pain MDM Narrative Medical decision making narrative: 1) Differential diagnosis: SVT, AFib with RVR, ACS 2) Comorbidities: AFib, SVT 3) External notes reviewed: Prior cardiology and admission notes 4) History sources independently obtained from: EMS reports 5) Discussion of management with: Hospitalist, golf tournament consultant substation operator helper generation 6) Independent interpretation of: EKG shows sinus rhythm rate 74, normal LA, QRS, QTC, no significant ST elevations or depressions or signs of acute arrhythmia or ischemia Chest x-ray: No obvious consolidations 7) Diagnostic tests or therapies considered but not ordered: 8) Social determinants of health: 9) Shared decision makinM p/w episode of SVT now resolved; h/o this in the past. Asx at this time. Bumped trop likely from HR in 200s and chemical cardioversion. Had similar presentation in the past. D/w golf tournament consultant substation operator helper generation and hospitalist who recommend discharge with f/u to golf tournament consultant. Dr Montague recommends increasing metop to 100mg qd. This is d/w pt who is agreeable to the plan; happy to be going home; promises to return to the ER immediately if symptoms return or anything else concerning.. Lab Data 04/06/24 02:30 04/06/24 02:30 Labs: Lab Results 04/06/24 Range/Units 02:30 WBC 4.4 L (4.5-10.0) K/mm3 RBC 4.20 L (4.6-6.20) M/mm3 Hgb 13.8 L (14.0-18.0) g/dL Hct 39.4 L (42.0-52.0) % MCV 93.8 (80-100) fl MCH 32.9 (26-34) pg MCHC 35.0 (32-36) g/dl RDW 13.0 (11.5-14.5) % Plt Count 119 L (150-375) k/mm3 MPV 8.4 (7.4-10.4) fl Immature Gran % (Auto) 0.5 (0-0.5) % Neut % (Auto) 65.2 (45.5-73.1) % Lymph % (Auto) 22.3 (18.3-44.2) % [place] % (Auto) 9.5 H (2.6-8.5) % Eos % (Auto) 1.8 (0-4.4) % Baso % (Auto) 0.7 (0.2-1.2) % Lymph # (Auto) 0.98 (0.9-3.2) K/mm3 [place] # (Auto) 0.4 (0.1-0.6) K/mm3 Eos # (Auto) 0.1 (0-0.3) K/mm3 Baso # (Auto) 0.0 (0.0-0.1) K/mm3 Abs Immat Gran (auto) 0.02 (0.00-0.031) K/mm3 Absolute Neuts (auto) 2.9 (1.3-6.7) K/mm3 Absolute Nucleated RBC 0.000 (0.0-0.012) K/mm3 Nucleated RBC % 0.0 (0.0-0.2) % PT 13.1 (11.1-14.7) Seconds INR 1.0 APTT 28.6 (22.3-36.8) Seconds Sodium 138 (137-145) mmol/L Potassium 3.4 (3.4-5.0) mmol/L Chloride 108 H (98-107) mmol/L Carbon Dioxide 24 (22-30) mmol/L Anion Gap 6 (4-12) mmol/L BUN 18 (9-20) mg/dL Creatinine 1.40 H (0.7-1.3) mg/dL Estim Creat Clear Calc 71 ml/min Estimated GFR 51 L (59 - ) Glucose 131 H (65-110) mg/dL Calcium 8.5 (8.4-10.2) mg/dL Total Bilirubin 0.4 (0.2-1.3) mg/dL AST 35 (17-59) U/L ALT 34 (6-50) U/L Alkaline Phosphatase 98 (38-126) U/L Troponin I 0.014 (0.000-0.034) ng/mL Total Protein 6.0 L (6.3-8.2) g/dL Albumin 3.6 (3.5-5.1) g/dL Lipase 55 (23-300) U/L Discharge Plan Discharge Clinical Impression: SVT (supraventricular tachycardia), Elevated troponin Patient Disposition: Home, Self-Care Condition: Stable Instructions: Supraventricular Tachycardia (ED) Additional Instructions: Please call your doctor and golf tournament consultant to follow up in the next 2 days. Take the new additional dose of metoprolol (so that you now take 50 mg metoprolol twice a day). Return to the ER immediately if you have concerning symptoms exam chest pain, shortness of breath, or palpitations or anything else concerning. Patient Language: Cambodian Prescriptions: New metoprolol succinate 50 mg tablet extended release 24 hr 50 mg PO DAILY Qty: 30 0RF Rx Instructions: Take IN ADDITION to the 50mg daily you are already taking, for total of 50 mg twice a day. No Action tamsulosin 0.4 mg Capsule 0.4 mg PO DAILY apixaban 5 mg Tablet 5 mg PO BID diltiazem HCl 180 mg Capsule,Ext.Rel 24h Degradable 360 mg PO QAM Qty: 90 0RF Follow-up/Referrals: UNKNOWN,DOCTOR [Primary Care Provider] -
[2024-04-06 07:21] LABS: Partial Thromboplastin Time 28.6 Seconds (22.3-36.8); Prothrombin Time 13.1 Seconds (11.1-14.7)
[2024-04-06 10:16] LABS: Troponin I 0.108 ng/mL (0.000-0.034)
== END 2024-04-06 08:20 | disposition home or self-care (01) ==
LOC: ANHED 07:44
PROVIDERS: Student in an Organized Health Care Education/Training Program; Emergency Provider Emergency Medicine
DX: I47.10 Supraventricular tachycardia, unspecified (principal); R79.89 Other specified abnormal findings of blood chemistry; I48.91 Unspecified atrial fibrillation; K21.9 Gastro-esophageal reflux disease without esophagitis; E78.5 Hyperlipidemia, unspecified; I10 Essential (primary) hypertension; Z87.891 Personal history of nicotine dependence
CPT/HCPCS: 36415; 71045; 80053; 83690; 84484; 85025; 85610; 85730; 93005; 99284

== ENCOUNTER 2024-06-02 05:59 | Emergency (ER) | payer OTHER, SELFPAY ==
--- NOTE | ~2024-06-02 | XR_ITS ---
Left Knee Technique: AP, lateral, and sunrise views were obtained. Clinical History: Injury Findings: No fracture or dislocation is seen. Osseous alignment is anatomic. Mild tricompartmental de generative changes present. Soft tissues are unremarkable. No joint effusion is seen. Impression: Mild tricompartmental degenerative change. Reviewed, dictated and finalized at [facility]. MARKER Impression: Mild tricompartmental degenerative change.
[2024-06-02 06:01] VITALS: BP 125/96; PULSE 73; RESP 18; TEMP 36.6; O2SAT 97
--- OUTSIDE RECORDS SUMMARY | 2024-06-02 06:03 | XMS_ITS | Encounter Summary ---
Author Name [facility] Address [address] [place] [address] Care Team Providers Care Residential Carpenter Name Role Phone JONATANFARIBA Castillo Primary Care Provider Unavailabl e Selected Encounter This section includes the information on record at [facility] for the Encounter. Date/Time Encounter Type Encounter Description Reason Pro vider Source Oct 29, 2023 11:00 AM Outpatient Encounter COMMUNITY CARE CONSULT IHE Encounter Template Text not used by [facility] Plan of Treatment: Future Appointments (+ 6 months) and Future Tests (+/- 45 days) The Plan of Treatment section includes future care activities for the patient from all [place] treatmentfacilities. This section includes future appointments and future orders which are active, pending or scheduled. Future Appointments This section includes appointments that were scheduled to occur 6 months from the date of the Encounter, up to a maximum of 20 appointments. The data comes from all [place] treatment facilities. Appointment Date/Time Appointment Type Appointme nt Facility Name Dec 10, 2023 11:00 AM AMBULATORY - SURGERY [facility] Dec 15, 2023 02:00 PM AMBULATORY - MEDICINE [facility] Jan 27, 2024 03:00 PM AMBULATORY - PSYCHIATRY [facility] Feb 03, 2024 01:30 PM AMBULATORY - NONE [facility] Mar 30, 2024 01:50 PM AMBULATORY - NONE [facility] Apr 14, 2024 01:30 PM AMBULATORY - NONE [facility] Social History: Smoking Status (Most current) and Tobacco Use (All prior to encounter date) This section includes the most current, and the historical, smoking and tobacco- related health factors from the [place] facility where the Encounter took place. Current Smoking Status This section includes the most current smoking, or tobacco-related health factor, from the [place] facility where the Encounter took place. Date/Time Current Smoking Status Comment Kyra kumar Nov 27, 2018 01:03 PM [place]-TOBACCO QUIT 1 TO < 5 YRS [facility] Tobacco Use History This section includes a history of the smoking, or tobacco-related health factors, that were collected on or before the date of the Encounter. The data comes from the [place] facility where the Encounter took place. Date/Time Smoking Status/Tobacco Use Comment F aciraida Nov 27, 2018 01:03 PM MS-TOBACCO QUIT 1 TO < 5 YRS [facility] Advance Directives: All historical and current Section Date Range: From patient's date of to the date document was created. This section includes ALL of a patient's completed or amended [place] Advance and Rescinded Directives. The entries below indicate that a directive exists for the patient, but an actual copy is not included with this document. The data comes from all [place] facilities. Date Advance Directives Provider Source Dec 31, 2023 ADVANCE DIRECTIVE DISCUSSION [facility] Encounter Notes: All associated encounter notes This section contains the clinical notes associated to the Encounter. Date/Time Encounter Note(s) Provider Source August 28, 2023 09:51 AM NONVA NOTE: LOCAL TITLE: COMMUNITY CARE-PATIENT LETTER (AUTO-PRINT) STANDARD TITLE: NONVA NOTE DATE OF NOTE: AUGUST 28, 2023@09:51 ENTRY DATE: AUGUST 28, 2023@09:51:44 AUTHOR: RAGHAV MEDINA COSIGNER: URGENCY: STATUS: COMPLETED Dear: LALI SUTHERLAND DO NOT REPORT TO A [place] LOCATION OF CARE You have an appointment with a community provider. Your appointment details are: Appointment date & time: Oct@11:00 Community Provider or Facility: [facility] Community Provider Location: [facility] Orthopedics @ [facility] [address] [place] [address] (Mara) [phone] Community Provider Type of Specialty: Ortho General Referral number: [id number] Referral valid: Apr to Mar You can find your authorization information online at [email or web address] If you have a co-pay for your care or prescriptions, [place] will send you a bill in the mail. Do not pay co-pays to community providers. If you get a bill or are asked for a co-pay, contact [facility] at [phone]. In case of emergency call 911 or go to the nearest emergency department. You or your emergency care provider can contact [place] to report emergency treatment. You have 72 hours to report emergency care to [place]. Call [phone] ([phone]) or visit [email or web address] If you have an immediate need for prescription medication after your community care visit, you may be eligible for up to a 14-day supply, filled at a participating [facility] pharmacy. You can find an in-network pharmacy online at: www.[place].gov/find-locations/ For immediate prescription, provide an eligible pharmacy the following information: ?? BIN: [id number] ?? PCN: [id number] ?? Group: [id number] The prescribed medications must be related to the services authorized on the referral and must be included in the [place] National Formulary. If you do not need medication immediately and for medication supply greater than 14-days, ask the community provider to send your prescription to the pharmacy at [facility] and [facility] will mail it to you. To reach the [facility] pharmacy call and press 1. If you are eligible for travel benefits, please note: - Travel will only be paid to the nearest facility that can provide care. - All claims must include proof of attendance attached to the claim. (after-visit summary, discharge paper, letter from treating facility on official letterhead, patient name, dates of service, and provider signature). NOTE: Appointments lists, and preparation instructions are not acceptable. - Claims can be submitted through the Beneficiary Travel Self Service System (BTSSS)at access.[place].gov - For assistance with your travel pay, you may contact Transportation Service at [phone]. RAGHAV MEDINA [facility]
--- OUTSIDE RECORDS SUMMARY | 2024-06-02 06:03 | XMS_ITS | Encounter Summary ---
Author Name [facility] Organization [facility] Address [address] [place] [address] Care Team Providers Care Factory Assembler Name Role Phone FARIBA CHEUNG Primary Care Provider Unavailabl e Selected Encounter This section includes the information on record at [place] for the Encounter. Date/Time Encounter Type Encounter Description Reason Pro vider Source IHE Encounter Template Text not used by [facility] Advance Directives: All historical and current Section Date Range: From patient's date of to the date document was created. This section includes ALL of a patient's completed or amended [place] Advance and Rescinded Directives. The entries below indicate that a directive exists for the patient, but an actual copy is not included with this document. The data comes from all [place] facilities. Date Advance Directives Provider Source Dec 31, 2023 ADVANCE DIRECTIVE DISCUSSION [facility]
--- OUTSIDE RECORDS SUMMARY | 2024-06-02 06:03 | XMS_ITS ---
Author Name [facility] Address [address] [place] [address] Care Team Providers Care Paper Cone Maker Name Role Phone FARIBA CHEUNG Primary Care Provider Unavailabl e Selected Encounter This section includes the information on record at [facility] for the Encounter. Date/Time Encounter Type Encounter Description Reason Provider Source Mar 12, 2024 10:19 AM QNHP OL DIG ASSMT&MGMT 5-10 CLINICAL PHARMACY ICD-10-CM I48.0 Paroxysmal atrial fibrillation KENNY COOPER Isa Encounter Template Text not used by [place] Assessments - Encounter Diagnoses This section includes the primary and secondary diagnoses documented for the Encounter. Date/Time Primary/Secondary Diagnosis Diagnosis Name Provider Source Mar 12, 2024 10:27 AM PRIMARY Paroxysmal atrial fibrillation ELIAN COOPER [facility] Mar 12, 2024 10:27 AM SECONDARY halfway (current) use of anticoagulants ELIAN COOPER [facility] Plan of Treatment: Future Appointments (+ 6 months) and Future Tests (+/- 45 days) The Plan of Treatment section includes future care activities for the patient from all [place] treatmentfacilities. This section includes future appointments and future orders which are active, pending or scheduled. Future Appointments This section includes appointments that were scheduled to occur 6 months from the date of the Encounter, up to a maximum of 20 appointments. The data comes from all [place] treatment facilities. Appointment Date/Time Appointment Type Appointme nt Facility Name Mar 30, 2024 01:50 PM AMBULATORY - [facility] Apr 14, 2024 01:30 PM AMBULATORY - NONE [facility] May 11, 2024 01:30 PM AMBULATORY - NONE [facility] May 27, 2024 02:00 PM AMBULATORY - MEDICINE [facility] May 27, 2024 02:40 PM AMBULATORY - NONE [facility] Lab Results: +/- 30 days of the encounter This section includes the Chemistry and Hematology Lab Results on record with [facility] for the patient. Radiology Reports and Pathology Reports are provided separately, in subsequent sections. Lab Results This section contains the Chemistry/Hematology Results that were resulted 30 days before or 30 daysafter the date of the Encounter. Date/Time Source Result Type Result - Unit Interpretation Reference Range Comment Mar 30, 2024 01:37 PM [facility] HIV PCR QUANT (PANEL) Specimen Type: PLASMA Comment: Low-risk levels (desirable) <200 mg/dL Moderate-risk levels (borderline) 200-239 mg/dL High-risk levels: >= 240 mg/dL Normal: <150 mg/dL -Borderline High: 150-199 mg/dL -High: 200-499 mg/dL -Very High: >500 mg/dL eGFR was calculated using the CKD-EPI Creatinine (2020) equation. Optimal: <100 mg/dL -Near Optimal/Above Optimal: 100-129 mg/dL -Borderline High: 130-159 mg/dL -High: 160-189 mg/dL -Very High: >=190 mg/dL Ordering Provider: OSWALDO EGAN Report Released Date/Time: Mar 12, 2024 08:39 AM Reporting Lab: [facility] [address] [place] [address] Performing Lab: [facility] [address] [place] [id number] HIV PCR QUANT(copies/mL ) <20 {copies}/mL 0-19 HIV PCR (log) <1.30 0.00-1.29 Mar 30, 2024 01:37 PM [facility] LYMPH SUBSET PANEL 4 [id number] Specimen Type: BLOOD Comment: INTERPRETIVE INFORMATION: Lymphocyte Subset 4, Pct. and Ratio, WB The CD4 cells are [place] T-cells expressing both CD3 and CD4. The CD8 cells are Cytotoxic T-cells expressing both CD3 and CD8. CD3, CD4 and CD8 percentages are reported as a percent of total lymphocytes. CD4 T-cells levels are a criterion for categorizing HIV-related clinical conditions by CDC's classification system for HIV infection. The measurement of CD4 T-cell levels has been used to establish decision points for initiating P. jirovecii prophylaxis, antiviral therapy and to monitor the efficacy of treatment. The Public Health Service (PHS) has recommended that CD4 T-cell levels be monitored every three to six months in all HIV-infected persons. This test was developed and its performance characteristics determined by [facility]. It has not been cleared or approved by the US Food and Drug Administration. This test was performed in a CLIA certified laboratory and is intended for clinical purposes. Performed By: [facility] [address] [place] [address] Assistant Food Service Director: Sabino Diaz MD, PhD CLIA Number: [id number] Ordering Provider: OSWALDO EGAN Report Released Date/Time: Mar 12, 2024 08:39 AM Reporting Lab: [facility] [address] [place] [address] Performing Lab: [facility] [address] [facility] [phone] ABSOLUTE CD 3 1191 {cells}/uL [phone] ABSOLUTE CD 4 HELPER 634 {cells}/uL 430-1800 ABSOLUTE CD 8 SUPPRESSOR 557 {cells}/uL 210-1200 % CD 3 POS. LYMPH 84 62-87 % CD 4 POS. LYMPH 45 32-64 % CD 8 POS. LYMPH 39 15-46 CD4/CD8 RATIO 1.15 {ratio} 0.80-3.90 LYMPH SUBSET PANEL 4 INFO See Note Mar 30, 2024 01:37 PM [facility] PHOS Specimen Type: PLASMA Comment: Low-risk levels (desirable) <200 mg/dL Moderate-risk levels (borderline) 200-239 mg/dL High-risk levels: >= 240 mg/dL Normal: <150 mg/dL -Borderline High: 150-199 mg/dL -High: 200-499 mg/dL -Very High: >500 mg/dL eGFR was calculated using the CKD-EPI Creatinine (2020) equation. Optimal: <100 mg/dL -Near Optimal/Above Optimal: 100-129 mg/dL -Borderline High: 130-159 mg/dL -High: 160-189 mg/dL -Very High: >=190 mg/dL Ordering Provider: OSWALDO EGAN Report Released Date/Time: Mar 12, 2024 08:39 AM Reporting Lab: [address] [address] Performing Lab: [address] [address] PHOS 2.9 mg/dL 2.4-5.1 Mar 30, 2024 01:37 PM [facility] LIPID PNL Specimen Type: PLASMA Comment: Low-risk levels (desirable) <200 mg/dL Moderate-risk levels (borderline) 200-239 mg/dL High-risk levels: >= 240 mg/dL Normal: <150 mg/dL -Borderline High: 150-199 mg/dL -High: 200-499 mg/dL -Very High: >500 mg/dL eGFR was calculated using the CKD-EPI Creatinine (2020) equation. Optimal: <100 mg/dL -Near Optimal/Above Optimal: 100-129 mg/dL -Borderline High: 130-159 mg/dL -High: 160-189 mg/dL -Very High: >=190 mg/dL Ordering Provider: OSWALDO EGAN Report Released Date/Time: Mar 12, 2024 08:39 AM Reporting Lab: [address] [address] Performing Lab: [address] [address] DIR. HDL 53 mg/dL L >=60 TRIGLYCERIDES 177 mg/dL H See Comment DIR LDL canc CHOL 245 mg/dL H See Comment LDL (CALCULATED) 157 mg/dL H See Comment Mar 30, 2024 01:37 PM [facility] VITAMIN D 25-HYDROXY Specimen Type: SERUM Comment: Deficiency <20, Insufficiency 20-30, Sufficiency 30-100, Toxicity >100 ng/mL Ordering Provider: OSWALDO EGAN Report Released Date/Time: Mar 12, 2024 08:39 AM Reporting Lab: [address] [address] Performing Lab: [address] [address] VITAMIN D 25-HYDROXY 48.30 ng/mL 30-100 Mar 30, 2024 01:37 PM [facility] COMPREHENSIVE PNL Specimen Type: PLASMA Comment: Low-risk levels (desirable) <200 mg/dL Moderate-risk levels (borderline) 200-239 mg/dL High-risk levels: >= 240 mg/dL Normal: <150 mg/dL -Borderline High: 150-199 mg/dL -High: 200-499 mg/dL -Very High: >500 mg/dL eGFR was calculated using the CKD-EPI Creatinine (2020) equation. Optimal: <100 mg/dL -Near Optimal/Above Optimal: 100-129 mg/dL -Borderline High: 130-159 mg/dL -High: 160-189 mg/dL -Very High: >=190 mg/dL Ordering Provider: OSWALDO EGAN Report Released Date/Time: Mar 12, 2024 08:39 AM Reporting Lab: [address] [address] Performing Lab: [address] [address] ANION GAP 7 mmol/L 5-15 EGFR 62 mL/min/{1.73_m2} >= 60 GLUCOSE 140 mg/dL H 70-99 POTASSIUM 3.9 mmol/L 3.5-4.7 SODIUM 139 mmol/L 136-145 BILI,TOTAL 0.6 mg/dL 0.2-1.2 PROTEIN, TOTL 6.8 g/dL 5.7-8.2 ALBUMIN 4.4 g/dL 3.4-5.0 ALKAL PHOS 134 U/L H 45-117 ALT 57 U/L 10-65 AST 33 U/L 10-37 UREA NITROGEN 18 mg/dL 7-21 CALCIUM, TOTAL 9.7 mg/dL 8.7-10.4 CO2 28 mmol/L 21-32 CHLORIDE 104 mmol/L 98-109 CREATININE 1.30 mg/dL H 0.73-1.18 Mar 30, 2024 01:37 PM [facility] CBC W/DIFF Specimen Type: BLOOD No comment entered. Ordering Provider: OSWALDO EGAN Report Released Date/Time: Mar 12, 2024 08:39 AM Reporting Lab: [address] [address] Performing Lab: [address] [address] WBC 6.2 10*3/uL 4.0-11.0 RBC 4.94 10*6/uL 4.20-5.70 HGB 15.9 g/dL 13.0-17.0 HCT 45.5 40.0-51.0 MCV 92.1 fL 82.0-99.0 MCH 32.2 pg 27.0-34.0 MCHC 34.9 g/dL 31.0-37.0 MPV 9.1 fL 8.0-12.[address] 171 10*3/uL 130-400 RDW-CV 12.5 < 15.0 NEUTROPHILS% 67.8 LYMPHS% 21.6 MONOS% 7.7 EOS% 1.3 BASOS% 1.1 IG% 0.5 NEUTROPHILS# 4.2 10*3/uL 1.5-8.0 LYMPHS# 1.3 10*3/uL 1.0-4.0 MONOS# 0.5 10*3/uL 0.2-1.0 EOS# 0.1 10*3/uL 0.0-0.4 BASOS# 0.1 10*3/uL 0.0-0.2 IG# <0.1 10*3/uL 0.0-0.5 NRBC% 0.0 /100{WBCs} 0.0-0.2 NRBC# <0.01 10*3/uL 0.00-0.01 Social History: Smoking Status (Most current) and Tobacco Use (All prior to encounter date) This section includes the most current, and the historical, smoking and tobacco- related health factors from the [place] facility where the Encounter took place. Current Smoking Status This section includes the most current smoking, or tobacco-related health factor, from the [place] facility where the Encounter took place. Date/Time Current Smoking Status Comment Kyra ity Dec 10, 2023 11:00 AM [facility]-TOBACCO FORMER USER [facility] Tobacco Use History This section includes a history of the smoking, or tobacco-related health factors, that were collected on or before the date of the Encounter. The data comes from the [place] facility where the Encounter took place. Date/Time Smoking Status/Tobacco Use Comment F acility Dec 10, 2023 11:00 AM VA-TOBACCO QUIT 15 YRS OR MORE [facility] Nov 27, 2018 01:03 PM VA-TOBACCO FORMER USER [facility] Nov 27, 2018 01:03 PM [place]AC[place] QUIT 1 TO < 5 YRS [facility] Advance Directives: All historical and current Section Date Range: From patient's date of to the date document was created. This section includes ALL of a patient's completed or amended [place] Advance and Rescinded Directives. The entries below indicate that a directive exists for the patient, but an actual copy is not included with this document. The data comes from all [place] facilities. Date Advance Directives Provider Source Dec 31, 2023 ADVANCE DIRECTIVE DISCUSSION [facility] Encounter Notes: All associated encounter notes This section contains the clinical notes associated to the Encounter. Date/Time Encounter Note(s) Provider Source Apr 02, 2024 04:21 PM ADDENDUM: LOCAL TITLE: Addendum STANDARD TITLE: ADDENDUM DATE OF NOTE: APR 02, 2024@16:21:29 ENTRY DATE: APR 02, 2024@16:21:29 AUTHOR: BETSY REGALADO EXP COSIGNER: URGENCY: STATUS: COMPLETED Labs were ordered by Dr. Egan with [facility] whom is also seeing he . Ok provider was alerted because you are primary care so you need to address unless labs have to do with ID which I will alert the results are back. /es/ BETSY REGALADO RN Signed: 04/02/2024 16:24 Receipt Acknowledged By: 04/05/2024 07:49 /es/ Oswaldo Egan MD physician 04/05/2024 15:07 /es/ FARIBA CHEUNG MD --- Original Document --- 03/31/24 PROVIDER/PATIENT RESULTS LETTER (P): LALI SUTHERLAND MAR 31, [address] [place], [place] [address] The following tests have been reviewed and show: Comments: Please forward these labs to your other providers and feel free to call and discuss Dr. Cheung Recommendations: If you have any questions please call Critical access hospital, at and ask for your Primary Care Provider or your Primary Care Team. If you have a private physician and wish to have copies of your medical records sent to your physician, please send a written request to: [facility] ([id number]), Replaced by [facility], [address] [place] [address] For [facility] use only: mail letter, 04/02/2024 ADDENDUM STATUS: COMPLETED Please mail this letter along with recent labs with the patient and asked to share with other doctors who must have ordered these labs. I have not seen this patient so I have not ordered them. /craig/ FARIBA CHEUNG MD Signed: 04/02/2024 16:13 Receipt Acknowledged By: * AWAITING SIGNATURE * SILVIA NUGENT 04/02/2024 16:21 /craig/ BETSY AGOSTO RN [facility] Apr 02, 2024 04:12 PM ADDENDUM: LOCAL TITLE: Addendum STANDARD TITLE: ADDENDUM DATE OF NOTE: APR 02, 2024@16:12:55 ENTRY DATE: APR 02, 2024@16:12:56 AUTHOR: FARIBA CHEUNG COSIGNER: URGENCY: STATUS: COMPLETED Please mail this letter along with recent labs with the patient and asked to share with other doctors who must have ordered these labs. I have not seen this patient so I have not ordered them. /craig/ FARIBA CHEUNG MD Signed: 04/02/2024 16:13 Receipt Acknowledged By: 04/05/2024 15:39 /craig/ SILVIA NUGENT LPN 04/02/2024 16:21 /craig/ BETSY REGALADO RN --- Original Document --- 03/31/24 PROVIDER/PATIENT RESULTS LETTER (P): ENA,RODNEY ROSIBEL MAR 31, [address] [place], [place] [address] The following tests have been reviewed and show: Comments: Please forward these labs to your other providers and feel free to call and discuss Dr. Cheung Recommendations: If you have any questions please call Critical access hospital, at and ask for your Primary Care Provider or your Primary Care Team. If you have a private physician and wish to have copies of your medical records sent to your physician, please send a written request to: AS[facility] ([id number]), Replaced by [facility], [address] [place] [address] For [facility] use only: mail letter, 04/02/2024 ADDENDUM STATUS: COMPLETED Labs were ordered by Dr. Egan with [facility] whom is also seeing he . Ok provider was alerted because you are primary care so you need to address unless labs have to do with ID which I will alert the results are back. /craig/ BETSY REGALADO RN Signed: 04/02/2024 16:24 Receipt Acknowledged By: 04/05/2024 07:49 /craig/ Oswaldo Egan MD physician 04/05/2024 15:07 /craig/ FARIBA ANDREW MD [facility] Mar 31, 2024 08:10 AM PRIMARY CARE NOTE: LOCAL TITLE: PROVIDER/PATIENT RESULTS LETTER (P) STANDARD TITLE: PRIMARY CARE NOTE DATE OF NOTE: MAR 31, 2024@08:10 ENTRY DATE: MAR 31, 2024@08:10:56 AUTHOR: FARIBA CHEUNG [facility] COSIGNER: URGENCY: STATUS: COMPLETED PROVIDER/PATIENT RESULTS LETTER (P) [facility] ([id number]) [address] [place], [place] [address] ENALALI ROSIBEL MAR 31, 2024 [address] [place], [place] [address] The following tests have been reviewed and show: Comments: Please forward these labs to your other providers and feel free to call and discuss Dr. Cheung Recommendations: If you have any questions please call Critical access hospital, at and ask for your Primary Care Provider or your Primary Care Team. If you have a private physician and wish to have copies of your medical records sent to your physician, please send a written request to: [facility] ([id number]), Replaced by [facility], [address] [place] [address] For [facility] use only: mail letter, 04/02/2024 ADDENDUM STATUS: COMPLETED Please mail this letter along with recent labs with the patient and asked to share with other doctors who must have ordered these labs. I have not seen this patient so I have not ordered them. /es/ FARIBA CHEUNG MD Signed: 04/02/2024 16:13 Receipt Acknowledged By: * AWAITING SIGNATURE * RAFFIJAIROViola LUO 04/02/2024 16:21 /es/ BETSY REGALADO RN 04/02/2024 ADDENDUM STATUS: COMPLETED Labs were ordered by Dr. Egan with [facility] whom is also seeing he . [facility] provider was alerted because you are primary care so you need to address unless labs have to do with ID which I will alert the results are back. /es/ BETSY REGALADO RN Signed: 04/02/2024 16:24 Receipt Acknowledged By: * AWAITING SIGNATURE * OSWALDO EGAN * AWAITING SIGNATURE * FARIBA CHEUNG Sincerely, FARIBA CHEUNG MD APR 02, 2024 16:29 [facility] JONATANFARIBA [facility] Mar 12, 2024 10:19 AM PHARMACY NOTE: LOCAL TITLE: ANTICOAGULATION HUB DOAC STANDARD TITLE: PHARMACY NOTE DATE OF NOTE: MAR 12, 2024@10:19 ENTRY DATE: MAR 12, 2024@10:19:54 AUTHOR: ELIAN COOPER EXP COSIGNER: URGENCY: STATUS: COMPLETED Direct Oral Anticoagulant (DOAC) Surveillance - Clinical Pharmacist Practitioner Drug: Apixaban 5mg BID Indication: Atrial Fibrillation/Flutter Hypertension ------ 1 point CHADS2-VASc Score (range 0-9): 1 Anticipated duration of anticoagulant therapy: Indefinite/extended (no anticipated stop date) WEIGHT/LABS: 269 lb [122.02 kg] (12/15/2023 13:59) [facility] Labs: Test Name Result Units Ref Range Collection DT CREATININE 1.09 mg/dL .73 -1.18 08/05/2023 Test Name Result Units Ref Range Collection DT HGB 16.5 g/dL 13 - 17 08/05/2023 Test Name Result Units Ref Range Collection DT HCT 46.7 % 40 - 51 08/05/2023 Collection DT Specimen Test Name Result Units Ref Range 08/05/2023 13:[address] 183 K/uL 130 - 400 Test Name Result Units Ref Range Collection DT AST 37 U/L 10 - 37 08/05/2023 Test Name Result Units Ref Range Collection DT ALT 56 U/L 10 - 65 08/05/2023 ASSESSMENT: Medication Renewal Due: Labs up to date / stable. RF history endorses compliance. Dose remains appropriate for indication. Apixaban Rx last filled 01/01/24 x 90-day supply and 0 refills remain on current Rx. - Sending to PCP for renewal of ongoing therapy, if in agreement. RECOMMENDATIONS: (Please see above assessment for more details) Renew medication accordingly. Please renew apixaban Rx and consider providing a 90-day supply with 3 RFs, for pt convenience. For ongoing monitoring, a population-based approach will be used to ensure safety, adherence to therapy, and appropriateness of prescribing. Time Spent in minutes: 6 /craig/ ELIAN COOPER PHARMD Clinical Pharmacy Practitioner Signed: 03/12/2024 10:27 Receipt Acknowledged By: 03/12/2024 10:44 /es/ BETSY REGALADO RN 03/12/2024 10:35 /es/ ELIAN FISCHER MD [facility]
--- OUTSIDE RECORDS SUMMARY | 2024-06-02 06:03 | XMS_ITS | Encounter Summary ---
Author Name [facility] ([place]) Organization [facility] of [facility] ([place]) Address [address] [place] [address] Care Team Providers Care Autism Specialist Name Role Phone JONATANVIVIENNEFARIBA Primary Care Provider Unavailabl e Selected Encounter This section includes the information on record at [facility] for the Encounter. Date/Time Encounter Type Encounter Description Reason Provider Source May 11, 2024 01:30 PM OFFICE O/P EST MOD 30 MIN RENAL/NEPHROL(EXC EPT DIALYSIS) ICD-10-CM N17.9 Acute kidney failure, unspecified Crystal UP Isa Encounter Template Text not used by [facility] Assessments - Encounter Diagnoses This section includes the primary and secondary diagnoses documented for the Encounter. Date/Time Primary/Secondary Diagnosis Diagnosis Name Provider Source May 11, 2024 04:02 PM PRIMARY Acute kidney failure, unspecified [facility] May 11, 2024 04:02 PM SECONDARY Essential (primary) hypertension [facility] May 11, 2024 04:02 PM SECONDARY Human immunodeficiency virus [HIV] disease [facility] May 11, 2024 04:02 PM SECONDARY Vitamin deficiency, unspecified [facility] Plan of Treatment: Future Appointments (+ 6 months) and Future Tests (+/- 45 days) The Plan of Treatment section includes future care activities for the patient from all [facility] treatmentfacilities. This section includes future appointments and future orders which are active, pending or scheduled. Future Appointments This section includes appointments that were scheduled to occur 6 months from the date of the Encounter, up to a maximum of 20 appointments. The data comes from all [facility]. Appointment Date/Time Appointment Type Appointme nt Facility Name May 27, 2024 02:00 PM AMBULATORY - MEDICINE [facility] May 27, 2024 02:40 PM AMBULATORY - NONE [facility] Oct 05, 2024 01:00 PM AMBULATORY - NONE [facility] Oct 19, 2024 02:00 PM AMBULATORY - NONE [facility] Active, Pending, and Scheduled Orders This section includes a listing of several types of active, pending, and scheduled orders, including clinic medications orders, diagnostic test orders, procedure orders and consult orders; where the start date of the order is 45 days before the date of the Encounter or 45 days after the date of theEncounter. The data comes from all [facility]. Test Date/Time Test Type Test Details Facility Name May 25, 2024 03:39 PM Consult Order COMMUNITY CARE-ORTHO GENERAL Cons [facility] May 25, 2024 03:39 PM Consult Order COMMUNITY CARE-ORTHO GENERAL Cons [facility] Jun 01, 2024 02:42 PM Consult Order [facility] Jun 01, [facility]24 02:42 PM Consult Order [facility] Lab Results: +/- 30 days of the encounter This section includes the Chemistry and Hematology Lab Results on record with [facility] for the patient. Radiology Reports and Pathology Reports are provided separately, in subsequent sections. Lab Results This section contains the Chemistry/Hematology Results that were resulted 30 days before or 30 daysafter the date of the Encounter. Date/Time Source Result Type Result - Unit Interpretation Reference Range Comment May 27, 2024 02:24 PM [facility] PTH INTCT Specimen Type: PLASMA No comment entered. Ordering Provider: Crystal UP Report Released Date/Time: May 11, 2024 04:06 PM Reporting Lab: [facility] [address] [facility] [address] Performing Lab: [facility] [address] [place] [id number] PTH INTCT 83.4 pg/mL H 18.4-80.1 May 27, 2024 02:24 PM [facility] VITAMIN D 25-HYDROXY Specimen Type: SERUM Comment: Deficiency <20, Insufficiency 20-30, Sufficiency 30-100, Toxicity >100 ng/mL Ordering Provider: FARIBA CHEUNG Report Released Date/Time: Apr 23, 2024 08:34 AM Reporting Lab: [address] [address] Performing Lab: [address] [address] VITAMIN D 25-HYDROXY 51.70 ng/mL 30-100 May 27, 2024 02:24 PM [facility] URINE ALBUMIN/CREAT (RAND URINE) Specimen Type: URINE No comment entered. Ordering Provider: Crystal UP Report Released Date/Time: May 11, 2024 04:06 PM Reporting Lab: [address] [address] Performing Lab: [address] [address] URINE ALBUMIN(RAND URINE) 1.5 mg/dL <2.0 CREAT(RNDM URINE) 210.70 mg/dL 40-278 CREAT RATIO (RNDM URINE) 7 mg/g <30 May 27, 2024 02:24 PM [facility] COMPREHENSIVE PNL Specimen Type: PLASMA Comment: eGFR was calculated using the CKD-EPI Creatinine (2020) equation. Ordering Provider: FARIBA CHEUNG Report Released Date/Time: Apr 23, 2024 08:34 AM Reporting Lab: [address] [address] Performing Lab: [address] [address] ANION GAP 12 mmol/L 5-15 EGFR 75 mL/min/{1.73_m 2} >= 60 GLUCOSE 105 mg/dL H 70-99 POTASSIUM 4.0 mmol/L 3.5-4.7 SODIUM 139 mmol/L 136-145 BILI,TOTAL 0.7 mg/dL 0.2-1.2 PROTEIN, TOTL 7.1 g/dL 5.7-8.2 ALBUMIN 4.6 g/dL 3.4-5.0 ALKAL PHOS 150 U/L H 45-117 ALT 47 U/L 10-65 AST 35 U/L 10-37 UREA NITROGEN 17 mg/dL 7-21 CALCIUM, TOTAL 9.9 mg/dL 8.7-10.4 CO2 25 mmol/L 21-32 CHLORIDE 102 mmol/L 98-109 CREATININE 1.11 mg/dL 0.73-1.18 Vital Signs: All taken on the encounter date This section contains inpatient and outpatient Vital Signs collected on the date of the Encounter. Date/Time Temperature Pulse Blood Pressure Respiratory Rate SP02 Pain Height Weight Body Mass Index Source May 11, 2024 02:22 PM 168/96 [facility] May 11, 2024 02:19 PM 97.5 70 153/99 20 94 6 75 268 34 [facility] Advance Directives: All historical and current Section Date Range: From patient's date of to the date document was created. This section includes ALL of a patient's completed or amended [facility] Advance and Rescinded Directives. The entries below indicate that a directive exists for the patient, but an actual copy is not included with this document. The data comes from all [facility] facilities. Date Advance Directives Provider Source Dec 31, 2023 ADVANCE DIRECTIVE DISCUSSION [facility] Encounter Notes: All associated encounter notes This section contains the clinical notes associated to the Encounter. Date/Time Encounter Note(s) Provider Source May 28, 2024 02:12 PM ADDENDUM: LOCAL TITLE: Addendum STANDARD TITLE: ADDENDUM DATE OF NOTE: MAY 28, 2024@14:12:41 ENTRY DATE: MAY 28, 2024@14:12:42 AUTHOR: FARIBA CHEUNG EXP COSIGNER: URGENCY: STATUS: COMPLETED Please mail him this letter along with copy of recent labs /es/ FARIBA CHEUNG MD Signed: 05/28/2024 14:13 Receipt Acknowledged By: 05/31/2024 11:31 /es/ SILVIA NUGENT LPN --- Original Document --- 05/28/24 PROVIDER/PATIENT RESULTS LETTER (P): LALI SUTHERLAND MAY 28, 2024 [place], [place] [address] The following tests have been reviewed and show: Please share the labs with your other providers Blood tests are stable. Feel free to call and discuss Dr. Cheung Comments: Recommendations: If you have any questions please call [facility], at and ask for your Primary Care Provider or your Primary Care Team. If you have a private physician and wish to have copies of your medical records sent to your physician, please send a written request to: ASIF ([id number]), [facility], [address] [place] [address] For [place] use only: mail letter, FARIBA CHEUNG [facility] May 28, 2024 02:11 PM PRIMARY CARE NOTE: LOCAL TITLE: PROVIDER/PATIENT RESULTS LETTER (P) STANDARD TITLE: PRIMARY CARE NOTE DATE OF NOTE: MAY 28, 2024@14:11 ENTRY DATE: MAY 28, 2024@14:11:16 AUTHOR: FARIBA CHEUNG EXP COSIGNER: URGENCY: STATUS: COMPLETED PROVIDER/PATIENT RESULTS LETTER (P) Has ADDENDA DEPARTMENT OF [facility] ([id number]) [address], [place] [address] LALI SUTHERLAND [birth year], [address] [place], [place] [address] The following tests have been reviewed and show: Please share the labs with your other providers Blood tests are stable. Feel free to call and discuss Dr. Cheung Comments: Recommendations: If you have any questions please call [facility], at and ask for your Primary Care Provider or your Primary Care Team. If you have a private physician and wish to have copies of your medical records sent to your physician, please send a written request to: ASIF ([id number]), [facility], [address] [facility], [place] [address] For [facility] use only: mail letter, 05/28/2024 ADDENDUM STATUS: COMPLETED Please mail him this letter along with copy of recent labs /es/ FARIBA CHEUNG MD Signed: 05/28/2024 14:13 Receipt Acknowledged By: * AWAITING SIGNATURE * SILVIA NUGENT Sincerely, FARIBA CHEUNG MD MAY 28, 2024 14:18 [facility]A [facility] May 11, 2024 02:59 PM INTERNAL MEDICINE NOTE: LOCAL TITLE: MEDICINE/RENAL STANDARD TITLE: INTERNAL MEDICINE NOTE DATE OF NOTE: MAY 11, 2024@14:59 ENTRY DATE: MAY 11, 2024@14:59:37 AUTHOR: KRISTIN UP COSIGNER: URGENCY: STATUS: COMPLETED MEDICINE/RENAL Has ADDENDA renal s/ 64yo male in renal clinic for acute kidney disease, creatinine fluctuates he feels ok no dizziness eating ok, avoids excess salt, has soda passing urine; occasional hesitancy, has nocturia x 1-2, no urgency, dysuria, hematuria no h/o renal stone no nsaid had v.tach had card eval w cath , no stent creat improving from 1.9 to 1.1 on discharge in hosp for chest pain saw card, saw neph, pth 101, got calcitriol 0.25/d sd labs creatinine 1.3 was 1.2 ua 10protein u albumin 1.2, ratio 5 renal us w left renal cyst. no h/o renal stone. pmh; bmi 33.6 hypertension, on diltiazem 240, toprol 50pm, high pressure today in clinic, unclear if taking meds a.fibrillation, on apixaban, no bleed, on tiazac 240, toprol, has occ palpitation, sees card h/o svt and cardioverson, on asa hyperlipidemia, back on atorvastatin 80, feels ok h/o muscle pain with rosuv 5, atorva in past, pravachol a1c 5.5 gerd, off pantoprazole, feels ok diverticulitis hiv, on biktarvy joint pains, no nsaid po, on diclofenac gel karol, can't tolerate cpap depression, on venlafaxine, bupropion anxiety, on buspar bph, on tamsulosin, left renal cyst allergy; atorva, penicillin soc; no smoking, has beer, mixed drink, 4/day fly; negative for kidney disease ros; no headache, blur, epistaxis, chest pain, palpitation, orthopnea, no inc dyspnea, can walk blocks, no abdominal pain, bleed, diarrhea, constip, leg pain. had rt foot surg o/ 97.5dg, hr 70, rr 20, bp 153/99, wt 268, o2 94 on aa alert, trevizo, skin; warm, heent; no bruit, no adenopathy, chest; clear, heart; reg rate now, irregular rhythm, abd; good bowel sounds, soft, nontender, extrem; no edema, no muscle tender, back; no flank tender, neuro; alert, talk ok a&p/ acute kidney syndrome in past, creatinine slightly worse, but not in ckd categorycreatinine 1.3, egfr 62. with htn, hiv on tx, cardiac cath in past, hilar adenopathy hypertension on diltiazem 240, toprol 50 hi in clinic f/u home pressure, call if hi cough w acei and arb vitamin d deficiency ca 9.7, alb 4.4 phos 2.9 off otc vitamin d pth 101 in hosp, now on calcitriol 0.25/d from pvt neph, in hosp erythrocytosis,in past hgb 15.9 not smoking, not using cpap, not on testosterone. o2 sat 92 ct th w [facility] pulm nodule h/o hypokalemia was given k bicarb 10/d, unclear if using, k level 3.9, co2 28 in pt w hiv, on biktarvy hiv on biktarvy, good labs labs discussed w him renal f/u 1y PC-MEDICATION RECONCILIATION: The following medication list was reviewed with the patient/caregiver: MRT5 - Allergies/ADRs FACILITY ALLERGY/ADR -------- [facility]IN [facility] ATORVASTATIN MRR1 - Med Reconciliation INCLUDED IN THIS LIST: Alphabetical list of active outpatient prescriptions dispensed from this [facility] (local) and dispensed from another VA or DoD facility (remote) as well as inpatient orders (local pending and active), local clinic medications, locally documented non-VA medications, and local prescriptions that have or been discontinued in the past 90 days. Non-VA Meds Last Documented On: Jan 23, 2018 NOTE The display of VA prescriptions dispensed from another VA or DoD facility (remote) is limited to active outpatient prescription entries matched to National Drug File at the originating site and may not include some items such as investigational drugs, compounds, etc. NOT INCLUDED IN THIS LIST: Medications self-entered by the patient into personal health records (i.e. [employer]) are NOT included in this list. Non-VA medications documented outside this [facility], remote inpatient orders (regardless of status) and remote clinic medications are NOT included in this list. The patient and provider must always discuss medications the patient is taking, regardless of where the medication was dispensed or obtained. Non-VA ACETAMINOPHEN 500MG TAB TAKE TWO TABLETS BY MOUTH THREE TIMES A DAY NEEDED Patient wants to buy from non-[facility] pharmacy OUTPT APIXABAN 5MG TAB (Status = Discontinued) TAKE ONE TABLET BY MOUTH TWICE A DAY Rx# [id number] Last Released: 01/01/24 Qty/Days Supply: 180/ Rx Expiration Date: 04/20/24 Refills Remainin OUTPT APIXABAN 5MG TAB (Status = Active) TAKE ONE TABLET BY MOUTH TWICE A DAY Rx# [id number] Last Released: 03/29/24 Qty/Days Supply: 180/90 Rx Expiration Date: 03/13/25 Refills Remainin Non-VA ASPIRIN 81MG EC TAB TAKE ONE TABLET BY MOUTH EVERY DAY Patient wants to buy from non-[facility] pharmacy OUTPT ASPIRIN 81MG EC TAB (Status = Active) TAKE ONE TABLET BY MOUTH EVERY DAY Rx# [id number] Last Released: 04/26/24 Qty/Days Supply: 120/90 Rx Expiration Date: 04/22/25 Refills Remainin Indication: TO PREVENT A STROKE OR HEART ATTACK OUTPT ATORVASTATIN CALCIUM 80MG TAB (Status = Active) TAKE ONE TABLET BY MOUTH AT BEDTIME CALL YOUR PROVIDER IF YOU HAVE MUSCLE PAIN, TENDERNESS OR WEAKNESS Rx# [id number] Last Released: 04/26/24 Qty/Days Supply: 90/90 Rx Expiration Date: 04/22/25 Refills Remainin Indication: FOR CHOLESTEROL OUTPT BIC 50/EMT 200/TEN 25 (EQV-BIKTARVY) TAB (Status = Discontinued) TAKE 1 TABLET BY MOUTH EVERY DAY FOR INFECTION DO NOT MIX WITH MINERALS/MVI FOR ADEQUATE ABSORPTION. Rx# [id number] Last Released: 12/25/23 Qty/Days Supply: Rx Expiration Date: 08/08/24 Refills Remainin OUTPT BIC 50/EMT 200/TEN 25 (EQV-BIKTARVY) TAB (Status = Active) TAKE 1 TABLET BY MOUTH EVERY DAY FOR INFECTION DO NOT MIX WITH MINERALS/MVI FOR ADEQUATE ABSORPTION. Rx# [id number] Last Released: 03/04/24 Qty/Days Supply: Rx Expiration Date: 02/25/25 Refills Remainin OUTPT BUSPIRONE HCL 5MG TAB (Status = Active) TAKE ONE TABLET BY MOUTH TWICE A DAY FOR ANXIETY Rx# [id number] Last Released: 12/30/23 Qty/Days Supply: Rx Expiration Date: 09/12/24 Refills Remainin Indication: FOR ANXIETY OUTPT CALCITRIOL 0.25MCG CAP (Status = Active) TAKE ONE CAPSULE BY MOUTH DAILY Rx# [id number] Last Released: 04/26/24 Qty/Days Supply: Rx Expiration Date: 04/22/25 Refills Remainin Indication: FOR BONES OUTPT DILTIAZEM (EQV-TIAZAC AB4) 240MG 24HR CP (Status = Active) TAKE ONE CAPSULE BY MOUTH EVERY DAY FOR BLOOD PRESSURE/HEART Rx# [id number] Last Released: 08/30/23 Qty/Days Supply: Rx Expiration Date: 05/15/24 Refills Remainin OUTPT ERGOCALCIF 1,250MCG (D2-50,000UNIT) CAP (Status = Discontinued) TAKE ONE CAPSULE BY MOUTH ONCE WEEKLY ON FRIDAY FOR VITAMIN D- SUPPLEMENT Rx# [id number] Last Released: 03/03/24 Qty/Days Supply: Rx Expiration Date: 12/26/24 Refills Remainin OUTPT FOLIC ACID 1MG TAB (Status = Active) TAKE ONE TABLET BY MOUTH DAILY Rx# [id number] Last Released: 04/26/24 Qty/Days Supply: Rx Expiration Date: 04/22/25 Refills Remainin Indication: FOR ANEMIA OUTPT METOPROLOL SUCCINATE 50MG SA TAB (Status = Active) TAKE ONE TABLET BY MOUTH NIGHTLY FOR BLOOD PRESSURE Rx# [id number] Last Released: 03/03/24 Qty/Days Supply: Rx Expiration Date: 12/18/24 Refills Remainin Indication: FOR BLOOD PRESSURE OUTPT MULTIVITAMIN/MINERALS THERAPEUT CAP/TAB (Status = Active) TAKE 1 CAP/TAB BY MOUTH DAILY Rx# [id number] Last Released: 04/26/24 Qty/Days Supply: Rx Expiration Date: 04/22/25 Refills Remainin Indication: FOR LACK IN VITAMINS OUTPT PANTOPRAZOLE NA 40MG EC TAB (Status = Active) TAKE ONE TABLET BY MOUTH EVERY DAY Rx# [id number] Last Released: 12/19/23 Qty/Days Supply: Rx Expiration Date: 12/18/24 Refills Remainin OUTPT POTASSIUM CL 20MEQ SA TAB (DISPERSIBLE) (Status = ) TAKE ONE TABLET BY MOUTH DAILY FOR POTASSIUM SUPPLEMENT Rx# [id number] Last Released: 03/03/24 Qty/Days Supply: Rx Expiration Date: 05/08/24 Refills Remainin OUTPT ROSUVASTATIN CA 20MG TAB (Status = Discontinued) TAKE ONE TABLET BY MOUTH EVERY DAY CALL YOUR PROVIDER IF YOU HAVE MUSCLE PAIN, TENDERNESS OR WEAKNESS Rx# [id number] Last Released: 03/22/24 Qty/Days Supply: Rx Expiration Date: 03/19/25 Refills Remainin OUTPT TAMSULOSIN HCL 0.4MG CAP (Status = Active) TAKE ONE CAPSULE BY MOUTH EVERY EVENING TAKE 30 MINUTES AFTER A MEAL Rx# [id number] Last Released: 12/22/23 Qty/Days Supply: Rx Expiration Date: 10/01/24 Refills Remainin Indication: FOR PROSTATE OUTPT THIAMINE 100MG TAB (Status = Active) TAKE ONE TABLET BY MOUTH DAILY Rx# [id number] Last Released: 04/26/24 Qty/Days Supply: Rx Expiration Date: 04/22/25 Refills Remainin Indication: FOR VITAMIN SUPPLEMENT OUTPT VENLAFAXINE HCL 150MG 24HR SA CAP (Status = Active) TAKE ONE CAPSULE BY MOUTH DAILY FOR DEPRESSION WITH FOOD - MOOD Rx# [id number] Last Released: 03/11/24 Qty/Days Supply: Rx Expiration Date: 12/26/24 Refills Remainin Indication: FOR DEPRESSION SUPPLIES Potential risks, benefits, and alternative to medications prescribed were discussed with Georges Mills/caregiver who was given an opportunity to ask questions, which were answered to the best of my ability and seemingly to their satisfaction. /caregiver was/were instructed to contact provider (means provided) with any concerns or questions. A list of reconciled medications was provided to the Georges Mills/caregiver. /craig/ NANCY UP MD Staff Physician Signed: 05/11/2024 16:02 05/31/2024 ADDENDUM STATUS: COMPLETED lauren, resolving creat 1.1, egfr 75 vit d deficiency on calcitriol 0.25/d, from pvt neph pth 83, ca 9.9, phos 4.6, vit d 52 ok now, but might need dose adjust /danny UP MD Staff Physician Signed: 05/31/2024 17:16 KRISTIN UP [facility] May 11, 2024 02:08 PM NURSING NOTE: LOCAL TITLE: RACHELLE/PREVMED STANDARD TITLE: NURSING NOTE DATE OF NOTE: MAY 11, 2024@14:08 ENTRY DATE: MAY 11, 2024@14:08:38 AUTHOR: MAYRA DEAL EXP COSIGNER: URGENCY: STATUS: COMPLETED TWO OR MORE PATIENT IDENTIFIERS REQUIRED 6FULL NAME Date c/o:no concerns regarding kidneys today Last nephrology visit: 05/20/23 Medication Reviewed: reviewed all medication listed pt acknowledge correct, not taking folic acid PCP: [facility] SPECIALIST:analytics lead Dr Up [facility] Infectious disease Dr Spangler [facility] Contract Technical Writer - seeing next month RACHELLE-BLOOD PRESSURE >140/90: BP: 153/99 (05/11/2024 14:19) Did you take your Blood Pressure Medication today? YES, Patient did take prescribed Blood Pressure Medication/s today. Have you consumed any caffeine within the last 30 minutes? YES Have you used any nicotine and/or nicotine products within the last 30 minutes? NO Blood Pressure rechecked: 168/96 /es/ MAYRA DEAL LPN Signed: 05/11/2024 14:25 MAYRA DEAL [facility]
--- OUTSIDE RECORDS SUMMARY | 2024-06-02 06:03 | XMS_ITS | Encounter Summary ---
Author Name [facility] Address [address] [place] [address] Care Team Providers Care Wire Temperer Name Role Phone FARIBA CHEUNG Primary Care Provider Unavailabl e Selected Encounter This section includes the information on record at [place] for the Encounter. Date/Time Encounter Type Encounter Description Reason Provider Source Dec 15, 2023 02:00 PM OFFICE O/P EST MOD 30 MIN PRIMARY CARE/MEDICINE ICD-10-CM M75.101 Unsp rotatr-cuff tear/ruptr of right shoulder, not trauma JOAQUIN JOHNSON Isa Encounter Template Text not used by [place] Assessments - Encounter Diagnoses This section includes the primary and secondary diagnoses documented for the Encounter. Date/Time Primary/Secondary Diagnosis Diagnosis Name Provider Source Dec 15, 2023 05:07 PM PRIMARY Unsp rotatr-cuff tear/ruptr of right shoulder, not trauma REGINALD JOHNSON [facility] Dec 15, 2023 05:07 PM SECONDARY Encounter for other preprocedural examination REGINALD JOHNSON [facility] Plan of Treatment: Future Appointments (+ 6 months) and Future Tests (+/- 45 days) The Plan of Treatment section includes future care activities for the patient from all [place] treatmentfacilities. This section includes future appointments and future orders which are active, pending or scheduled. Future Appointments This section includes appointments that were scheduled to occur 6 months from the date of the Encounter, up to a maximum of 20 appointments. The data comes from all [place] treatment facilities. Appointment Date/Time Appointment Type Appointme nt Facility Name Jan 27, 2024 03:00 PM AMBULATORY - PSYCHIATRY [facility] Feb 03, 2024 01:30 PM AMBULATORY - NONE [facility] Mar 30, 2024 01:50 PM AMBULATORY - NONE [facility] Apr 14, 2024 01:30 PM AMBULATORY - NONE [facility] May 11, 2024 01:30 PM AMBULATORY - NONE [facility] May 27, 2024 02:00 PM AMBULATORY - MEDICINE [facility] May 27, 2024 02:40 PM AMBULATORY - NONE [facility] Vital Signs: All taken on the encounter date This section contains inpatient and outpatient Vital Signs collected on the date of the Encounter. Date/Time Temperature Pulse Blood Pressure Respiratory Rate SP02 Pain Height Weight Body Mass Index Source Dec 15, 2023 02:12 PM 122/94 [facility] Dec 15, 2023 01:59 PM 97.7 73 153/104 95 5 75 269 34 [facility] Social History: Smoking Status (Most current) and Tobacco Use (All prior to encounter date) This section includes the most current, and the historical, smoking and tobacco- related health factors from the [place] facility where the Encounter took place. Current Smoking Status This section includes the most current smoking, or tobacco-related health factor, from the [place] facility where the Encounter took place. Date/Time Current Smoking Status Comment [facility] Aug 13, 2022 01:30 PM VA-TOBACCO FORMER USER [facility] Tobacco Use History This section includes a history of the smoking, or tobacco-related health factors, that were collected on or before the date of the Encounter. The data comes from the [place] facility where the Encounter took place. Date/Time Smoking Status/Tobac co Use Comment Facility Aug 13, 2022 01:30 PM VA-TOBACCO QUIT 5 TO < 15 YRS [facility] Apr 03, 2021 01:30 PM VA-TOBACCO FORMER USER [facility] Apr 03, 2021 01:30 PM VA-TOBACCO QUIT 5 TO < 15 YRS [facility] Jan 18, 2020 11:00 AM VA-TOBACCO FORMER USER [facility] Jan 18, 2020 11:00 AM VA-TOBACCO QUIT 5 TO < 15 YRS [facility] Jan 23, 2018 08:39 AM VA-TOBACCO FORMER USER [facility] Jan 23, 2018 08:39 AM VA-TOBACCO QUIT 5 TO < 15 YRS [facility] May 01, 2017 01:39 PM QUIT TOBACCO >7 YEARS AGO 10YEARS AGO [facility] May 01, 2017 01:39 PM TOBACCO CESSATION MEDS REFUSED STOP 10YEARS AGO [facility] May 01, 2017 01:39 PM TOBACCO CESSATION REFERRAL REFUSED [facility] May 01, 2017 01:39 PM TOBACCO OFFERRED STOP SMOKING CLINIC [facility] Mar 18, 2016 02:02 PM QUIT TOBACCO >7 YEARS AGO [facility] Mar 18, 2016 02:02 PM TOBACCO CESSATION MEDS REFUSED STOPPED 8YRS AGO [facility] Mar 18, 2016 02:02 PM TOBACCO CESSATION REFERRAL REFUSED [facility] Mar 18, 2016 02:02 PM TOBACCO OFFERRED STOP SMOKING CLINIC [facility] Dec 16, 2013 08:31 AM LIFETIME NON-USER OF TOBACCO [facility] Advance Directives: All historical and current Section Date Range: From patient's date of to the date document was created. This section includes ALL of a patient's completed or amended [place] Advance and Rescinded Directives. The entries below indicate that a directive exists for the patient, but an actual copy is not included with this document. The data comes from all [place] facilities. Date Advance Directives Provider Source Dec 31, 2023 ADVANCE DIRECTIVE DISCUSSION Martin [facility] Encounter Notes: All associated encounter notes This section contains the clinical notes associated to the Encounter. 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 Informed Consent to Screen and Document The individual does NOT consent to proceed with screening. Homelessness/Food Insecurity Screen: In the past 2 months, have you been living in stable housing that you own, rent, or stay in as part of a household? Yes - Living in stable housing. Are you worried or concerned that in the next 2 months you may NOT have stable housing that you own, rent, or stay in as part of a household? No - Not worried about housing near future The reports the following: Within the past 12 months, you worried whether your food would run out before you got money to buy more. Never true Within the past 12 months, the food you bought just didn't last and you didn't have money to get more. Never true RACHELLE-ADVANCE DIRECTIVES: Advance care planning is the process for identifying and communicating an individual's values and preferences regarding future health care. An advance directive is a written statement regarding preferences about future health care decisions in the event that individual becomes unable to make those decisions. Notification of Rights Related to Advance Directives: Written notification provided. ADVANCE DIRECTIVE: Do you have Advance Directive? NO The patient wishes to receive information about or assistance with Advance Care Planning and/or Advance Directive: Yes Patient referred to Research Lab Assistant for assistance with Advance Directive. ACP Research Lab Assistant has been notified of this request. MOVE!: MOVE! (Managing Overweight/Obesity for Veterans Everywhere) HEIGHT: 75 in [190.5 cm] (12/15/2023 13:59) WEIGHT: 269 lb [122.02 kg] (12/15/2023 13:59) BODY MASS INDEX: 33.7 (DEC 15, 2023@13:59:53) 'MOVE'---MANAGING OVERWEIGHT/OBESE VETERANS EVERYWHERE! Are you interested in speaking with a nutrition leadership coach (dietitian)? Dietitians, exercise therapists, and healthy behavior coaches will work with you to create a customized plan that includes meal preparation, exercise guidance, and motivation to lose weight. Patient declines referral. RACHELLE-EDUCATION ASSESSMENT: `````````````````````````` ```````````` ANNUAL EDUCATION NEEDS/BARRIER ASSESSMENT Primary healthcare language: Estonian Barriers to Learning: Physical: Hearing Impairment Visual Impairment Cognitive: None Socioeconomic: None Preferred Learning Methods: Demonstration - Watching and the Doing `````````````````````````` ```````````` RACHELLE-EXERCISE SCREEN: Patient had Exercise Screening done at this encounter. Type of exercise, duration and frequency/week. Comment: staying active Did patient report New Balance Problem? [ NO ] Did patient report New Transfer Problem? [ NO ] Did patient report New Ambulating Problem? [ NO ] Has the patient fallen within the past 12 months? YES. Known reason: Reason: Clare like he was going to faint so he laid down Consult Orders placed: No Consult orders needed. RACHELLE-SKIN RISK ASSESSMENT: RACHELLE/SKIN RISK REMINDER *FERN CUTTER* The reports no current pressure ulcers, wounds, or a history of pressure ulcers. The Hartman reports no use of a wheelchair for mobility at least 75% of the time. Td / Tdap Immunization: The patient declines to receive the recommended dose of Td/Tdap vaccine. Immunization: TD(ADULT) UNSPECIFIED FORMULATION Refusal Reason: PATIENT DECISION Patient refuses all immunization(s) in the Td group Date Documented: 12/15/23 14:09 Stress: In the last 6 months, Hartman identified the following causes of stress or worry: bank account hacked COVID-19 Immunization: Refused Moderna Monovalent COVID-19 vaccine Immunization: COVID-19 (MODERNA), MRNA, LNP-S, PF, 50 MCG/0.5 ML (AGES 12+ YEARS) Refusal Reason: PATIENT DECISION Patient refuses all immunization(s) in the COVID-19 group Comment: unavailable Date Documented: 12/15/23 14:10 Follow Up Colonoscopy: Colonoscopy is due based on information available to this reminder. RACHELLE-BLOOD PRESSURE >140/90: BP: 153/104 (12/15/2023 13:59) Did you take your Blood Pressure Medication today? YES, Patient did take prescribed Blood Pressure Medication/s today. Have you consumed any caffeine within the last 30 minutes? NO Have you used any nicotine and/or nicotine products within the last 30 minutes? NO Blood Pressure rechecked: 122/94 /craig/ SILVIA NUGENT FERN CUTTER Signed: 12/15/2023 14:13 SILVIA NUGENT [facility] Dec 15, 2023 01:50 PM PRIMARY CARE NOTE: LOCAL TITLE: PRIMARY CARE/PROVIDER NOTE STANDARD TITLE: PRIMARY CARE NOTE DATE OF NOTE: DEC 15, 2023@13:50 ENTRY DATE: DEC 15, 2023@13:50:37 AUTHOR: JOAQUIN JOHNSON EXP COSIGNER: URGENCY: STATUS: COMPLETED CC: preoperative physical exam Hartman is here for a H&P for R shoulder surgery Dr Naidu 12/24/2023 [facility] R Shoulder Mr. Cueva is a 63 yo male who is here today for a preoperative physical exam. He brings in no objective paperwork or details on the procedure he is having done. A right rotator cuff procedure of some sort is planned. He is reporting pain and loss of movement for the past 18 months. Anesthesia: [x ] GETA [ ] MAC [ ] Local Denies any personal or familial history of blood clots or clotting disorders. No personal or familial history of a bleeding diathesis. There is no personal or familial history of: -excessive nose bleeds -frequent or easy bleeding -spontaneous joint hemorrhage No personal or familial history of anesthesia reactions. Review of systems: CONSTITUTIONAL: No significant weight gain or loss during the past year. No fever, chills, or sweats. No weakness. Good appetite. No insomnia. EYES: No blurred vision or double vision, irritated eyes, or eye pain. No light flashes or halos around lights. EARS, NOSE, MOUTH, THROAT: No hearing difficulty, no ear pain or drainage, no tinnitus. No epistaxis, no nasal irritation or drainage, no sinus problems. No problems with the mouth, teeth, gums, or tongue. CARDIOVASCULAR: No chest pain or tightness, no palpitations, no irregular heartbeat, no ankle edema, no orthopnea, no paroxysmal nocturnal dyspnea. RESPIRATORY: No cough, hemoptysis, dyspnea, or wheezing. GASTROINTESTINAL: No nausea, vomiting, dyspepsia, abdominal pain, cramping, abdominal distension, belching, increased flatus, diarrhea or constipation. No change in bowel habits. No melena or hematochezia. GENITOURINARY: No flank pain, frequency, urgency, dysuria, or hematuria. No nocturia, no problems with bladder emptying or bladder control. MUSCULOSKELETAL: No myalgia, arthralgia, swollen joints, leg cramps, or loss of muscle strength. No neck or back pain or stiffness. INTEGUMENTARY (skin and/or breast): No rash or itching, flaking or scaling. No sores. No lump or thickening. No suspicious changes in a mole or other skin lesion. No scalp problems. EXTREMITIES: No edema, rashes, or other lesions NEUROLOGIC: No numbness, weakness, or tingling. No dizzy spells, fainting spells, or difficulty with balance. No headaches. No problems with speech or memory. PSYCHIATRIC: Doesn't feel unhappy, depressed, or anxious. No crying spells. No insomnia. No homicidal or suicidal ideation. ENDOCRINE: No heat or cold intolerance. No hair loss, dry skin, or swelling. Doesn't feel jumpy or nervous. No polydipsia, polyphagia or polyuria. HEMATOLOGIC/LYMPHATIC: No adenopathy, easy bruising, or easy bleeding. === *HISTORY* === Previous Medical History: Active problems - Computerized Problem List is the source for the following: PROBLEM 1. Chronic cough 2. Dysphagia 3. Shoulder pain 4. Pain of joint of knee 5. Primary subtalar osteoarthritis 6. H/O: surgery 7. Osteoporosis 8. Social history baseline finding 9. Family social history 10. Chronic kidney disease stage 3 11. TEST RESULTS 12. Diverticulitis 13. Panic attack 14. Thrombocytopenia ([facility] [id number]) 15. HIV - Human Immunodeficiency Virus Infection ([facility] [id number]) 16. Chronic Low Back Pain ([facility] [id number]) 17. Spinal Stenosis of Lumbar Region ([facility] [id number]) 18. Vitamin D deficiency 19. Tinnitus 20. Osteoarthritis of knee 21. Arthralgia of the ankle and/or foot 22. Obesity 23. Sensorineural hearing loss, bilateral 24. Cervicalgia 25. Obstructive sleep apnea syndrome 26. Atrial fibrillation 27. Hyperlipidemia 28. Gastroesophageal reflux disease 29. Benign essential hypertension Previous Surgical History: 1. right and left shoulder repair 2. left leg miriam placement 3. lumbar fixation Active Outpatient Medications (including Supplies): Active Outpatient Medications Status 1) APIXABAN 5MG TAB TAKE ONE TABLET BY MOUTH TWICE A DAY ACTIVE 2) BIC 50/EMT 200/TEN 25 (EQV-BIKTARVY) TAB TAKE 1 ACTIVE TABLET BY MOUTH EVERY DAY FOR INFECTION DO NOT MIX WITH MINERALS/MVI FOR ADEQUATE ABSORPTION. 3) BUSPIRONE HCL 5MG TAB TAKE ONE TABLET BY MOUTH TWICE ACTIVE A DAY FOR ANXIETY 4) DILTIAZEM (EQV-TIAZAC AB4) 240MG 24HR CP TAKE ONE ACTIVE CAPSULE BY MOUTH EVERY DAY FOR BLOOD PRESSURE/HEART 5) ERGOCALCIF 1,250MCG (D2-50,000UNIT) CAP TAKE ONE ACTIVE CAPSULE BY MOUTH ONCE WEEKLY ON FRIDAY FOR VITAMIN D- SUPPLEMENT 6) POTASSIUM CL 20MEQ SA TAB (DISPERSIBLE) TAKE ONE ACTIVE TABLET BY MOUTH DAILY FOR POTASSIUM SUPPLEMENT 7) TAMSULOSIN HCL 0.4MG CAP TAKE ONE CAPSULE BY MOUTH ACTIVE EVERY EVENING TAKE 30 MINUTES AFTER A MEAL 8) VENLAFAXINE HCL 150MG 24HR SA CAP TAKE ONE CAPSULE BY ACTIVE MOUTH DAILY FOR DEPRESSION WITH FOOD - MOOD Active Non-VA Medications Status 1) Non-VA ACETAMINOPHEN 500MG TAB 1000MG MOUTH THREE ACTIVE TIMES A DAY NEEDED 2) Non-VA ASPIRIN 81MG EC TAB 81MG MOUTH EVERY DAY ACTIVE 10 Total Medications Supplements and Herbs: -none Social History: -tobacco: reports prior use, quit 15 years -etoh: yes , 2 drinks a day, whisky and coke -CAGE: negative -illicit drug use: denies Family History: -denies Allergies: Patient has answered ATORVASTATIN, PRAVASTATIN = *OBJECTIVE* = VS: 137/100 (12/10/2023 11:46) 76 (12/10/2023 11:45) 16 (12/10/2023 11:45) 97.8 F [36.6 C] (12/10/2023 11:45) 94% (12/10/2023 11:45) 75 in [190.5 cm] (05/20/2023 10:55) 274 lb [124.28 kg] (12/10/2023 11:45) 34.3 (DEC 10, 2023@11:45:29) 8 (05/20/2023 14:14) General: seated on examination table, NAD appears to be stated age. was alert, oriented, and cooperative. language was fluent and appropriate. mentation seems normal. HEENT: Head: normocephalic and atraumatic felt afebrile face symmetric Eyes: anicteric, without injection or discharge PERRLA. EOM's intact without nystagmus in all directions. Ears: Bilaterally: Hearing grossly intact Nose: Nares patent bilaterally Nasal mucosa was moist and pink Mouth and throat: Oral mucosa was moist and pink No pharyngeal injection or tonsillar hypertrophy No masses, lesions, or exudate Tongue and uvula were midline Tongue and soft palate yariel symmetrically Neck: Smooth and supple. No cervical lymphadenopathy, thyromegally or tracheal deviation No supraclavicular lymphadenopathy Carotid pulses were intact, 2+ No discernable jugular venous distention Lungs: Was breathing without difficulty Clear to auscultation bilaterally No rhonchi, rales, or wheezes No intercostal retractions or accessory muscle usage Heart: Regular rate and rhythm No murmurs, rubs, or gallops. Normal S1, S2. No S3 or S4. Back: No spinal step offs No deviation from midline Back was straight and even. No CVA tenderness Pulses: Radial pulses were patent and symmetrical, 2+ Upper extremities: Bilaterally: Normal muscle tone and bulk Strength in upper extremity was 5/5 throughout No significant dysmetria noted with [id number] Skin on hands warm and dry; skin turgor intact on dorsum of hands Nails show no pitting, ridges, or pallor No pronator drift No noticeable distal tremor, either at rest or with movement Lower extremities: Bilaterally: Normal muscle tone and bulk No pitting edema noted Genitourinary: deferred Gait: smooth and even, without ataxia or antalgia lab work was discussed and a copy was provided = *Pre-Op assessments* = Had cardiac clearance with [place] cardiology, impression as follows: Assessment & Plan: 63-year-old with above medical history, who was initially referred here for cardiac testing [possible stress test] before planned shoulder surgery. However, as mentioned above, the patient had cardiac catheterization with coronary angiography last month which did not show any significant coronary artery disease and there was no need for interventions. Additionally, the patient has hypertension, renal insufficiency, hyperlipidemia and history of atrial fibrillation on anticoagulation and rate controlling medications. The patient is asymptomatic from a cardiac standpoint as described above. Based on the above information, the patient is at moderate risk from a cardiac standpoint. He does not need any further cardiac testing at the present time since he just had coronary angiography last month. His hemodynamic parameters need to be maintained within acceptable limits in the perioperative period. The patient will require hemodynamic monitoring in the perioperative period because of his history of atrial fibrillation and supraventricular tachycardia. Cardiology consultation in the perioperative is strongly recommended. = *Assessment/PLAN* = #. right rotator cuff tear: surgical indication #. Pre-operative risk assessment (z01.818): NSQIP MACE score, cardiac: 0.0% (avg risk 0.0%) [email or web address] RCRI: 0 points, 3.9% Functional Capacity Dasi Score: 58.2 points, 9.89 METs Cardiology consult [x ] completed EKG [x ] completed CXR [x ] completed CBC w/ diff [x ] completed BMP [x ] completed a1c [x ] completed 05 Aug 2023, normal TSH [x ] completed 05 aug 2023, wnl There are no signs on his physical exam today that would indicate an impending cardiac condition. Based on the evaluation today, his risks have been addressed and have been minimized as much as possible. [x ] There is nothing prohibiting surgery at this time. #. Continuity of Care: follow up in: (x) as per previous rtc = *REMINDERS* = PC-MEDICATION RECONCILIATION: The following medication list was reviewed with the patient/caregiver: MRT5 - Allergies/ADRs FACILITY ALLERGY/ADR -------- [facility] ATORVASTATIN [facility] PRAVASTATIN [facility] ATORVASTATIN MRR1 - Med Reconciliation INCLUDED IN THIS LIST: Alphabetical list of active outpatient prescriptions dispensed from this [place] (local) and dispensed from another VA or [facility] facility (remote) as well as inpatient orders (local pending and active), local clinic medications, locally documented non-VA medications, and local prescriptions that have or been discontinued in the past 90 days. Non-VA Meds Last Documented On: Jan 23, 2018 NOTE The display of VA prescriptions dispensed from another [place] or [facility] facility (remote) is limited to active outpatient prescription entries matched to National Drug File at the originating site and may not include some items such as investigational drugs, compounds, etc. NOT INCLUDED IN THIS LIST: Medications self-entered by the patient into personal health records (i.e. [facility]) are NOT included in this list. Non-VA medications documented outside this [place], remote inpatient orders (regardless of status) and remote clinic medications are NOT included in this list. The patient and provider must always discuss medications the patient is taking, regardless of where the medication was dispensed or obtained. Non-VA ACETAMINOPHEN 500MG TAB TAKE TWO TABLETS BY MOUTH THREE TIMES A DAY NEEDED Patient wants to buy from non-VA pharmacy OUTPT APIXABAN 5MG TAB (Status = Active) TAKE ONE TABLET BY MOUTH TWICE A DAY Rx# [id number] Last Released: 10/02/23 Qty/Days Supply: 180/ Rx Expiration Date: 04/20/24 Refills [facility] Non-VA ASPIRIN 81MG EC TAB TAKE ONE TABLET BY MOUTH EVERY DAY Patient wants to buy from non-VA pharmacy OUTPT BIC 50/EMT 200/TEN 25 (EQV-BIKTARVY) TAB (Status = Active) TAKE 1 TABLET BY MOUTH EVERY DAY FOR INFECTION DO NOT MIX WITH MINERALS/MVI FOR ADEQUATE ABSORPTION. Rx# [id number] Last Released: 08/09/23 Qty/Days Supply: 90 Rx Expiration Date: 08/08/24 Refills [facility] OUTPT BUSPIRONE HCL 5MG TAB (Status = Active) TAKE ONE TABLET BY MOUTH TWICE A DAY FOR ANXIETY Rx# [id number] Last Released: 09/24/23 Qty/Days Supply: Rx Expiration Date: 09/12/24 Refills [facility] Indication: FOR ANXIETY OUTPT DILTIAZEM (EQV-TIAZAC AB4) 240MG 24HR CP (Status = Active) TAKE ONE CAPSULE BY MOUTH EVERY DAY FOR BLOOD PRESSURE/HEART Rx# [id number] Last Released: 08/30/23 Qty/Days Supply: Rx Expiration Date: 05/15/24 Refills [facility] OUTPT ERGOCALCIF 1,250MCG (D2-50,000UNIT) CAP (Status = Active) TAKE ONE CAPSULE BY MOUTH ONCE WEEKLY ON FRIDAY FOR VITAMIN D- SUPPLEMENT Rx# [id number] Last Released: 08/28/23 Qty/Days Supply: Rx Expiration Date: 01/07/24 Refills [facility] OUTPT LIDOCAINE 5% PATCH (Status = ) USE 1 PATCH TOPICALLY TO DRY, HAIRLESS AREA ONCE DAILY NEEDED FOR PAIN PRESS PATCH ONTO THE SKIN FOR 10-15 SECONDS TO HEAT ACTIVATE THE ADHESIVE. REMOVE PATCH(ES) AFTER 12 HOURS AND LEAVE OFF FOR 12 HOURS. Rx# [id number] Last Released: 10/24/22 Qty/Days Supply: Rx Expiration Date: 10/25/23 Refills [facility] Indication: FOR PAIN OUTPT METOPROLOL SUCCINATE 50MG SA TAB (Status = ) TAKE ONE TABLET BY MOUTH NIGHTLY FOR BLOOD PRESSURE Rx# [id number] Last Released: 08/09/23 Qty/Days Supply: Rx Expiration Date: 11/14/23 Refills [facility] Indication: FOR BLOOD PRESSURE OUTPT PANTOPRAZOLE NA 40MG EC TAB (Status = ) TAKE ONE TABLET BY MOUTH EVERY DAY Rx# [id number] Last Released: 07/17/23 Qty/Days Supply: Rx Expiration Date: 11/14/23 Refills [facility] OUTPT POTASSIUM CL 20MEQ SA TAB (DISPERSIBLE) (Status = Active) TAKE ONE TABLET BY MOUTH DAILY FOR POTASSIUM SUPPLEMENT Rx# [id number] Last Released: 08/28/23 Qty/Days Supply: Rx Expiration Date: 05/08/24 Refills [facility] OUTPT TAMSULOSIN HCL 0.4MG CAP (Status = Discontinued) TAKE ONE CAPSULE BY MOUTH EVERY EVENING TAKE 30 MINUTES AFTER A MEAL Rx# [id number] Last Released: 07/23/23 Qty/Days Supply: Rx Expiration Date: 05/15/24 Refills [facility] Indication: FOR PROSTATE OUTPT TAMSULOSIN HCL 0.4MG CAP (Status = Active) TAKE ONE CAPSULE BY MOUTH EVERY EVENING TAKE 30 MINUTES AFTER A MEAL Rx# [id number] Last Released: 10/04/23 Qty/Days Supply: Rx Expiration Date: 10/01/24 Refills [facility]ainin Indication: FOR PROSTATE OUTPT VENLAFAXINE HCL 150MG 24HR SA CAP (Status = Active) TAKE ONE CAPSULE BY MOUTH DAILY FOR DEPRESSION WITH FOOD - MOOD Rx# [id number] Last Released: 12/15/23 Qty/Days Supply: Rx Expiration Date: 09/12/24 Refills Remainin Indication: FOR DEPRESSION SUPPLIES Potential risks, benefits, and alternative to medications prescribed were discussed with Hartman/caregiver who was given an opportunity to ask questions, which were answered to the best of my ability and seemingly to their satisfaction. Hartman/caregiver was/were instructed to contact provider (means provided) with any concerns or questions. A list of reconciled medications was provided to the /caregiver. /craig/ Joaquin Johnson PA-C Physician Dr[employer] Set Up Operator Radial Signed: 12/15/2023 17:07 [facility]
--- OUTSIDE RECORDS SUMMARY | 2024-06-02 06:03 | XMS_ITS | Continuity of Care Document ---
Author Name [facility] Organization [facility] Care Team Providers [employer] General Sales Manager Name Role Phone [facility] Unavailable Unavailable Problems Combined list of problems from Department of Defense and Veterans Affairs facilities. It does not include entries that were removed or entered in error. Problem Status Onset Date Problem Type Date of Resolution Comments Source Arthralgia of the ankle and/or foot Active Condition [facility] Atrial fibrillation Active Condition Dec 31, 2017 Entered By: DEBI CUENCA Comment: S/P ablation 12/25/2017Jun 2018 Entered By: SRINI MAGALLANES Comment: followed by [facility] Benign essential hypertension Active Condition [facility] Cervicalgia Active Condition [facility] Chronic cough Active Condition [facility] Chronic kidney disease stage 3 Active Condition Oct 15, 2018 Entered By: SRINI MAGALLANES Comment: avoids NSAIDS [facility] Chronic Low Back Pain (SCT 312062) Active Condition [facility] Diverticulitis Active Condition Jun Entered By: SRINI MAGALLANES Comment: 06/25/18 colonoscopy, bx pendingMay 2018 Entered By: JAVON SEYMOUR Comment: 09/08/18 Flex sig, biopsy--benig n tissue, repeat 2 yr [facility] Dysphagia Active Condition [facility] Family social history Active Condition Oct 15, 2018 Entered By: SRINI MAGALLANES Comment: father had NH, smoker, in 50'sJun 2018 Entered By: SRINI MAGALLANES Comment: brother with CVA at age 60Jun 2018 Entered By: SRINI MAGALLANES Comment: 1/2 brother with NH [facility] Gastroesophageal reflux disease Active Condition [facility] H/O: surgery Active Condition Oct 15, 2018 Entered By: SRINI MAGALLANES Comment: left hip fracture 1982, fall, in traction for monthJun 2018 Entered By: SRINI MAGALLANES Comment: miriam in left upper femur, 2012 following fractureOct 15, 2018 Entered By: SRINI MAGALLANES Comment: lumbar fusion, 1999Oct 15, 2018 Entered By: SRINI MAGALLANES Comment: ablation 01/13 for atrial fib [facility] HIV - Human Immunodeficiency Virus Infection (SCT [id number]) Active Condition [facility] Hyperlipidemia Active Condition [facility] Long-term current use of anticoagulant Active Condition [facility] Obesity Active Condition [facility] Obstructive sleep apnea syndrome Active Condition Apr 29, 2016 Entered By: RUTH WHITEHEAD Comment: split night 04/23/16: AHI 11.8/hr, 82% low sat; 5-14cwp [facility] Osteoarthritis of knee Active Condition [facility] Osteoporosis Active Condition Oct 15, 2018 Entered By: SRINI MAGALLANES Comment: 10/05/18 DEXA right forearm T-2.1, right hip -0.2Jun 2018 Entered By: SRINI MAGALLANES Comment: will continue to monitor, repeat DEXA in 3 yearsJun 2018 Entered By: SRINI MAGALLANES Comment: quit smoking 1999, left hip fx felt to be secondary to traumaJun 2018 Entered By: SRINI MAGALLANES Comment: minimal etohJun 2018 Entered By: SRINI MAGALLANES Comment: normal Vit D on replacement [facility] Pain of joint of knee Active Condition [facility] Panic attack Active Condition [facility] Primary subtalar osteoarthritis Active Condition [facility] Sensorineural hearing loss, bilateral Active Condition [facility] Shoulder pain Active Condition [facility] Social history baseline finding Active Condition Oct 15 9 Entered By: SRINI MAGALLANES Comment: marriedOct 15, 2018 Entered By: SRINI MAGALLANES 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, 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 Entered By: SRINI MAGALLANES Comment: [employer] 80-83, no combatJun 2018 Entered By: SRINI MAGALLANES Comment: quit smoking 2018 Entered By: SRINI MAGALLANES Comment: minimal etoh [facility] Spinal Stenosis of Lumbar Region (SCT [id number]) Active Condition [facility] TEST RESULTS Active Condition Oct 14, 2018 Entered By: SRINI MAGALLANES Comment: 09/13 colonoscopy normal, repeat 2 years per GI noteJun 2018 Entered By: SRINI MAGALLANES Comment: 10/05/18 bone density, right hip normal, will continue to follow [facility] Thrombocytopenia (SCT [id number]) Active Condition [facility] Tinnitus Active Condition [facility] Vitamin D deficiency Active Condition [facility] Ankle pain Inactive Condition 05/01/2017 [facility] Elevated blood pressure Inactive Condition 05/01/2017 [facility] Hearing loss Inactive Condition 05/01/2017 [facility] Palpitations Inactive Condition 05/01/2017 [facility] Syncope Inactive Condition 05/01/2017 [facility] Diagnosis: ICD-10-CM M25.569 Pain in unspecified knee Active Diagnosis [facility] Diagnosis: ICD-10-CM N17.9 Acute kidney failure, unspecified Active Diagnosis [facility] Diagnosis: ICD-10-CM B20 Human immunodeficiency virus [HIV] disease [facility] Diagnosis: ICD-10-CM I48.0 Paroxysmal atrial fibrillation Active Diagnosis [facility] Diagnosis: ICD-10-CM M75.101 Unsp rotatr-cuff tear/ruptr of right shoulder, not trauma Active Diagnosis [facility] Diagnosis: ICD-10-CM Z01.810 Encounter for preprocedural cardiovascular examination Active Diagnosis [facility] Diagnosis: ICD-10-CM F32.5 Major depressive disorder, single episode, in full remission Active Diagnosis [facility] Diagnosis: ICD-10-CM F33.41 Major depressive disorder, recurrent, in partial remission Active Diagnosis [facility] Diagnosis: ICD-10-CM Z79.01 retirement (current) use of anticoagulants Active Diagnosis [facility] Medications Combined list of outpatient medications from Department of Defense and [facility] Affairs facilities.Medications provided include 1) outpatient medications from the last 15 months, and 2) patient-reported medications. Medication Details Route Status Patient Instructions Prescription Expires Prescription Number Last Dispense Date Ordering Provider Order Date Order Qty Source ACETAMINOPH EN 500MG TAB TAKE TWO TABLETS BY MOUTH THREE TIMES A DAY NEEDED ORAL ACTIVE HIEN CUENCA 2017 [facility] APIXABAN 5MG TAB TAKE ONE TABLET BY MOUTH TWICE A DAY ORAL ACTIVE 03/13/2025 [id number] OFELIA CHEUNG 2023 180 [facility] APIXABAN 5MG TAB TAKE ONE TABLET BY MOUTH TWICE A DAY ORAL DISCONT INUED 04/20/2024 [id number] DRAKE DIAS 2022 180 [facility] ASPIRIN 81MG TAB,EC TAKE ONE TABLET BY MOUTH EVERY DAY ORAL ACTIVE 04/22/2025 [id number] 4 OFELIA CHEUNG NDERichard 2023 120 [facility] ASPIRIN 81MG TAB,EC TAKE ONE TABLET BY MOUTH EVERY DAY ORAL ACTIVE HIEN CUENCA 2017 [facility] ATORVASTATI N CA 80MG TAB TAKE ONE TABLET BY MOUTH AT BEDTIME CALL YOUR PROVIDER IF YOU HAVE MUSCLE PAIN, TENDERNE SS OR WEAKNESS ORAL ACTIVE 04/22/2025 [id number] 4 OFELIA CHEUNG NDERichard 2023 90 [facility] BICTEGRAVIR 50MG/EMTRIC ITABINE 200MG/TENOF OVIR AF 25MG TAB TAKE 1 TABLET BY MOUTH EVERY DAY FOR INFECTIO N DO NOT MIX WITH MINERALS /MVI FOR ADEQUATE ABSORPTI ON. FOR INFECTIO N DO NOT MIX WITH MINERALS /MVI FOR ADEQUATE ABSORPTI ON. ORAL ACTIVE 02/25/2025 [id number] 5 JULISAINWHA 2023 90 [facility] BICTEGRAVIR 50MG/EMTRIC ITABINE 200MG/TENOF OVIR AF 25MG TAB TAKE 1 TABLET BY MOUTH EVERY DAY FOR INFECTIO N DO NOT MIX WITH MINERALS /MVI FOR ADEQUATE ABSORPTI ON. FOR INFECTIO N DO NOT MIX WITH MINERALS /MVI FOR ADEQUATE ABSORPTI ON. ORAL DISCONT INUED 08/08/2024 [id number] 4 JULISAINLOUISA 2023 90 [facility] BICTEGRAVIR 50MG/EMTRIC ITABINE 200MG/TENOF OVIR AF 25MG TAB TAKE 1 TABLET BY MOUTH EVERY DAY FOR INFECTIO N DO NOT MIX WITH MINERALS /MVI FOR ADEQUATE ABSORPTI ON. FOR INFECTIO N DO NOT MIX WITH MINERALS /MVI FOR ADEQUATE ABSORPTI ON. ORAL DISCONT INUED 03/21/2024 [id number] JULISA,INWHA 2022 90 [facility] BUSPIRONE HCL 5MG TAB TAKE ONE TABLET BY MOUTH TWICE A DAY FOR ANXIETY ORAL ACTIVE 09/12/2024 [id number] 4 Omar MARCOS IGISHA 2023 180 [facility] BUSPIRONE HCL 5MG TAB TAKE ONE TABLET BY MOUTH TWICE A DAY FOR ANXIETY ORAL DISCONT INUED BY PROVIDE R 06/12/2024 [id number] Omar MARCOS IGISHA 2023 120 [facility] BUSPIRONE HCL 5MG TAB TAKE ONE TABLET BY MOUTH TWICE A DAY FOR ANXIETY ORAL DISCONT INUED 05/15/2024 [id number] LUIS DIAS JAMEY PUJA 2023 120 [facility] BUSPIRONE HCL 5MG TAB TAKE ONE TABLET BY MOUTH TWICE A DAY FOR ANXIETY ORAL DISCONT INUED 01/07/2024 [id number] Omar MARCOS IGISHA 2022 120 [facility] CALCITRIOL 0.25MCG CAP TAKE ONE CAPSULE BY MOUTH DAILY ORAL ACTIVE 04/22/2025 [id number] 4 OFELIA CHEUNG NDERichard 2023 90 [facility] DICLOFENAC NA 1% GEL,TOP APPLY 4 GRAMS TOPICALL Y FOUR TIMES A DAY -DON'T EXCEED 16 GRAMS DAILY TO ANY AFFECTED LEG AREA. DON'T EXCEED 8 GRAMS DAILY TO ANY AFFECTED ARM AREA. DON'T EXCEED A TOTAL DOSE OF 32 GRAMS DAILY OVER ALL AREAS. *USE DOSING CARD TO MEASURE DOSE.* TOPICA L ACTIVE 05/28/2025 [id number] ANA,NICO AL L 2024 100 [facility] DILTIAZEM (EQV-TIAZAC AB4) 240MG 24HR CAP TAKE ONE CAPSULE BY MOUTH EVERY DAY FOR BLOOD PRESSURE /HEART ORAL DISCONT INUED 07/31/2023 [id number] TONY MUSE 2022 30 [facility] DILTIAZEM (EQV-TIAZAC AB4) 240MG 24HR CAP TAKE ONE CAPSULE BY MOUTH EVERY DAY FOR BLOOD PRESSURE /HEART ORAL 05/15/2024 [id number] MOE DRAKE RAMIREZ 2023 30 [facility] ERGOCALCIFE ROL 1,250MCG (50,000UNIT ) CAP TAKE ONE CAPSULE BY MOUTH ONCE WEEKLY ON FRIDAY FOR VITAMIN D- SUPPLEME NT ORAL DISCONT INUED BY PROVIDE R 12/26/2024 [id number] LEONA HOBBS 2023 13 [facility] ERGOCALCIFE ROL 1,250MCG (50,000UNIT ) CAP TAKE ONE CAPSULE BY MOUTH ONCE WEEKLY ON FRIDAY FOR VITAMIN D- SUPPLEME NT ORAL DISCONT INUED 01/07/2024 [id number] 4 LEONA HOBBS 2022 13 [facility] FOLIC ACID 1MG TAB TAKE ONE TABLET BY MOUTH DAILY ORAL ACTIVE 04/22/2025 [id number] 4 OFELIA CHEUNG 2023 90 [facility] METOPROLOL SUCCINATE 50MG TAB,SA TAKE ONE TABLET BY MOUTH NIGHTLY FOR BLOOD PRESSURE ORAL ACTIVE 12/18/2024 [id number] 5 LEONA HOBBS 2023 90 [facility] METOPROLOL SUCCINATE 50MG TAB,SA TAKE ONE TABLET BY MOUTH NIGHTLY FOR BLOOD PRESSURE ORAL DISCONT INUED 11/14/2023 [id number] LEONA HOBBS 2022 90 [facility] MULTIVITAMI NS W/MINERALS CAP/TAB TAKE 1 CAP/TAB BY MOUTH DAILY ORAL ACTIVE 04/22/2025 [id number] 4 OFELIA CHEUNG 2023 100 [facility] PANTOPRAZOL E NA 40MG TAB,EC TAKE ONE TABLET BY MOUTH EVERY DAY ORAL ACTIVE 12/18/2024 [id number] LEONA HOBBS 2023 90 [facility] PANTOPRAZOL E NA 40MG TAB,EC TAKE ONE TABLET BY MOUTH EVERY DAY ORAL DISCONT INUED 11/14/2023 [id number] 4 LEONA HOBBS 2022 90 [facility] POTASSIUM CHLORIDE 20MEQ TAB,SA (DISPERSIBL E) TAKE ONE TABLET BY MOUTH DAILY FOR YAHAIRA DO NT ORAL 05/08/2024 [id number] 4 JUANITOMundo LEONA CLINT 2023 90 [facility] ROSUVASTATI N CA 20MG TAB TAKE ONE TABLET BY MOUTH EVERY DAY CALL YOUR PROVIDER IF YOU HAVE MUSCLE PAIN, TENDERNE SS OR WEAKNESS ORAL DISCONT INUED BY PROVIDE R 03/19/2025 [id number] VIRGINIE,DANELLE ISTINE KATELYNN 2023 90 [facility] TAMSULOSIN HCL 0.4MG CAP TAKE ONE CAPSULE BY MOUTH EVERY EVENING TAKE 30 MINUTES AFTER A MEAL ORAL ACTIVE 10/01/2024 [id number] FRANKY JOHNSON 2023 90 [facility] TAMSULOSIN HCL 0.4MG CAP TAKE ONE CAPSULE BY MOUTH EVERY EVENING TAKE 30 MINUTES AFTER A MEAL ORAL DISCONT INUED (EDIT) 05/15/2024 [id number] DRAKE DIAS 2023 30 [facility] THIAMINE 100MG TAB TAKE ONE TABLET BY MOUTH DAILY ORAL ACTIVE 04/22/2025 [id number] OFELIA CHEUNG NDERichard 2023 100 [facility] VENLAFAXINE HCL 150MG 24HR CAP,SA TAKE ONE CAPSULE BY MOUTH DAILY FOR DEPRESSI ON WITH FOOD - MOOD ORAL ACTIVE 12/26/2024 [id number] 5 Omar MARCOS 2023 90 [facility] VENLAFAXINE HCL 150MG 24HR CAP,SA TAKE ONE CAPSULE BY MOUTH DAILY FOR DEPRESSI ON WITH FOOD - MOOD ORAL DISCONT INUED 09/12/2024 [id number] Omar MARCOS 2023 90 [facility] VENLAFAXINE HCL 150MG 24HR CAP,SA TAKE ONE CAPSULE BY MOUTH DAILY WITH FOOD - MOOD ORAL DISCONT INUED BY PROVIDE R 06/12/2024 [id number] Omar MARCOSViola 2023 60 [facility] Allergies, Adverse Reactions, Alerts Combined list of allergies from Department of Defense and Veterans Affairs facilities. It does not include entries that were removed or entered in error. Substance Category Reaction Severity Reaction type Status Date Reported Comments Source ATORVASTATIN Propensity to adverse reactions to drug (finding) Muscle pain active 6 [facility] ATORVASTATIN Propensity to adverse reactions to drug (finding) active 7 [facility] PRAVASTATIN Propensity to adverse reactions to drug (finding) Muscle pain active 8 [facility] Immunizations Combined list of available immunizations from the Department of Defense and Veterans Affairs facilities. Immunization Series Date Given Administered By Site Reaction Lot Number CVX Code Drug Bus Greaser Status Comments Source INFLUENZA, SPLIT VIRUS, TRIVALENT, PF 2024 MYERS,PRISC ILLA KATELYNN LEFT DELTO ID [id number] 140 complet [facility] TDAP 2024 MELITA MYERS ILLA KATELYNN RIGHT DELTO ID [id number] 115 complet [facility] INFLUENZA, INJECTABLE, QUADRIVALENT, PRESERVATIVE FREE 2023 RENNY PERKINS RY LEFT DELTO ID [id number] 150 complet [facility] INFLUENZA, INJECTABLE, QUADRIVALENT, PRESERVATIVE FREE 2021 150 complet [facility] ZOSTER RECOMBINANT 2 2021 187 complet [facility] INFLUENZA, INJECTABLE, QUADRIVALENT, PRESERVATIVE FREE 2020 150 complet [facility] ZOSTER RECOMBINANT 1 2020 187 complet [facility] COVID-19 (SHANNAN), VECTOR-NR, RS-AD26, PF, 0.5 ML 1 2020 212 complet ed [facility] INFLUENZA, INJECTABLE, QUADRIVALENT, PRESERVATIVE FREE 2019 150 complet ed [facility] HEP A, ADULT 2 2018 52 complet ed [facility] INFLUENZA, INJECTABLE, QUADRIVALENT, PRESERVATIVE FREE 2018 150 complet ed [facility] MENINGOCOCCAL MCV4P 2018 114 complet ed [facility] HEP A, ADULT 1 2018 52 complet ed [facility] INFLUENZA, INJECTABLE, QUADRIVALENT, PRESERVATIVE FREE 2017 150 complet ed [facility] INFLUENZA, SEASONAL, INJECTABLE, PRESERVATIVE FREE 2016 140 complet ed Right Deltoid 0.5ml IM [facility] INFLUENZA, SEASONAL, INJECTABLE, PRESERVATIVE FREE 2015 140 complet ed Right Deltoid 0.5ml IM [facility] INFLUENZA, UNSPECIFIED FORMULATION 2015 88 complet ed [facility] INFLUENZA, UNSPECIFIED FORMULATION 2015 88 complet ed Right Deltoid 0.5ml IM [facility] PNEUMOCOCCAL POLYSACCHARID E PPV23 2015 33 complet ed [facility] PNEUMOCOCCAL CONJUGATE PCV 13 2014 133 complet ed [facility] INFLUENZA, UNSPECIFIED FORMULATION 2013 88 complet ed Right Deltoid 0.5ml IM [facility] TDAP 2013 115 complet ed Right Deltoid 0.5ml IM [facility] INFLUENZA, UNSPECIFIED FORMULATION 2001 88 complet ed Left Deltoid 0.5ml [facility] PNEUMOCOCCAL POLYSACCHARID E PPV23 2001 33 complet ed Right Deltoid [facility] INFLUENZA, UNSPECIFIED FORMULATION 1998 88 complet ed [facility] TD(ADULT) UNSPECIFIED FORMULATION 1997 139 complet ed [facility] Results Combined list of recent chemistry, hematology and other laboratory results from Department of Defense and Veterans Affairs, ranging from 15 months to all on record, depending upon the facility. Order Name Results Value Reference Range Date Interpretation Specimen Comments Source PTH INTCT PARATHYRIN. INTACT [MASS/VOLUM E] IN SERUM OR PLASMA 83.4 pg/mL 18.4 - 80.1 05/27 H Specimen Type: PLASMA No comment entered. Ordering Provider: NANCY SANDERSON Report Released Date/Time: May 11, 2024 04:06 PM Reporting Lab: [facility] [address] [address] Performing Lab: [facility] [address] [facility] [address] [facility] VITAMIN D 25-HYDROX Y 25-HYDROXYV ITAMIN D3 [MASS/VOLUM E] IN SERUM OR PLASMA 51.70 ng/mL 30 - 100 05/27 Specimen Type: SERUM Comment: Deficiency <20, Insufficien cy 20-30, Sufficiency 30-100, Toxicity >100 ng/mL Ordering Provider: CROW CHEUNG Report Released Date/Time: Apr 23, 2024 08:34 AM Reporting Lab: [address] [address] Performing Lab: [address] [address] [facility] URINE ALBUMIN/C REAT (RAND URINE) MICROALBUMI N [MASS/VOLUM E] IN URINE 1.5 mg/dL <2.0 - 2.0 05/27 Specimen Type: URINE No comment entered. Ordering Provider: NANCY SANDERSON Report Released Date/Time: May 11, 2024 04:06 PM Reporting Lab: [address] [address] Performing Lab: [place] [phone] [facility] URINE ALBUMIN/C REAT (RAND URINE) CREATININE [MASS/VOLUM E] IN URINE 210.70 mg/dL 40 - 278 05/27 Specimen Type: URINE No comment entered. Ordering Provider: NANCY SANDERSON Report Released Date/Time: May 11, 2024 04:06 PM Reporting Lab: [address] [address] Performing Lab: [place] [phone] [facility] URINE ALBUMIN/C REAT (LUVERNE URINE) MICROALBUMI N/CREATININ E [RATIO] IN URINE 7 mg/g <30 - 30 05/27 Specimen Type: URINE No comment entered. Ordering Provider: NANCY SANDERSON Report Released Date/Time: May 11, 2024 04:06 PM Reporting Lab: [place] [address] Performing Lab: [place] [address] [facility] COMPREHEN SIVE PNL ANION GAP IN SERUM OR PLASMA 12 mmol/L 5 - 15 05/27 Specimen Type: PLASMA Comment: eGFR was calculated using the CKD-EPI Creatinine (2020) equation. Ordering Provider: CROW CHEUNG ER Report Released Date/Time: Apr 23, 2024 08:34 AM Reporting Lab: [address] [address] Performing Lab: [address] [address] [facility] COMPREHEN SIVE PNL GLOMERULAR FILTRATION RATE/1.73 SQ M.PREDICTED [VOLUME RATE/AREA] IN SERUM, PLASMA OR BLOOD BY CREATININE- BASED FORMULA (CKD-EPI 2020) 75 mL/min /{1.73 _m2} 60 05/27 Specimen Type: PLASMA Comment: eGFR was calculated using the CKD-EPI Creatinine (2020) equation. Ordering Provider: CROW CHEUNG ER Report Released Date/Time: Apr 23, 2024 08:34 AM Reporting Lab: [address] [address] Performing Lab: [address] [address] [facility] COMPREHEN SIVE PNL GLUCOSE [MASS/VOLUM E] IN SERUM OR PLASMA 105 mg/dL 70 - 99 05/27 H Specimen Type: PLASMA Comment: eGFR was calculated using the CKD-EPI Creatinine (2020) equation. Ordering Provider: CROW CHEUNG ER Report Released Date/Time: Apr 23, 2024 08:34 AM Reporting Lab: [address] [address] Performing Lab: [address] [address] [facility] COMPRE[facility]EN [facility] PNL POTASSIUM [MOLES/VOLU ME] IN SERUM OR PLASMA 4.0 mmol/L 3.5 - 4.7 05/27 Specimen Type: PLASMA Comment: eGFR was calculated using the CKD-EPI Creatinine (2020) equation. Ordering Provider: CROW CHEUNG ER Report Released Date/Time: Apr 23, 2024 08:34 AM Reporting Lab: [address] [address] Performing Lab: [address] [address] [facility] COMPRE[facility]EN [facility]IVE PNL SODIUM [MOLES/VOLU ME] IN SERUM OR PLASMA 139 mmol/L 136 - 145 05/27 Specimen Type: PLASMA Comment: eGFR was calculated using the CKD-EPI Creatinine (2020) equation. Ordering Provider: CROW CHEUNG ER Report Released Date/Time: Apr 23, 2024 08:34 AM Reporting Lab: [address] [address] Performing Lab: [address] [address] [facility] COMPREHEN SIVE PNL BILIRUBIN.T OTAL [MASS/VOLUM E] IN SERUM OR PLASMA 0.7 mg/dL 0.2 - 1.2 05/27 Specimen Type: PLASMA Comment: eGFR was calculated using the CKD-EPI Creatinine (2020) equation. Ordering Provider: CROW CHEUNG ER Report Released Date/Time: Apr 23, 2024 08:34 AM Reporting Lab: [address] [address] Performing Lab: [address] [address] [facility] COMPREHEN SIVE PNL PROTEIN [MASS/VOLUM E] IN SERUM OR PLASMA 7.1 g/dL 5.7 - 8.2 05/27 Specimen Type: PLASMA Comment: eGFR was calculated using the CKD-EPI Creatinine (2020) equation. Ordering Provider: CROW CHEUNG ER Report Released Date/Time: Apr 23, 2024 08:34 AM Reporting Lab: [address] [address] Performing Lab: [address] [address] [facility] COMPREHEN SIVE PNL ALBUMIN [MASS/VOLUM E] IN SERUM OR PLASMA 4.6 g/dL 3.4 - 5.0 05/27 Specimen Type: PLASMA Comment: eGFR was calculated using the CKD-EPI Creatinine (2020) equation. Ordering Provider: CROW CHEUNG ER Report Released Date/Time: Apr 23, 2024 08:34 AM Reporting Lab: [address] [address] Performing Lab: [address] [address] [facility] COMPREHEN SIVE PNL ALKALINE PHOSPHATASE [ENZYMATIC ACTIVITY/VO LUME] IN SERUM OR PLASMA 150 U/L 45 - 117 05/27 H Specimen Type: PLASMA Comment: eGFR was calculated using the CKD-EPI Creatinine (2020) equation. Ordering Provider: CROW CHEUNG ER Report Released Date/Time: Apr 23, 2024 08:34 AM Reporting Lab: [address] [address] Performing Lab: [address] [address] [facility] COMPREHEN [facility]IVE PNL ALANINE AMINOTRANSF ERASE [ENZYMATIC ACTIVITY/VO LUME] IN SERUM OR PLASMA 47 U/L 10 - 65 05/27 Specimen Type: PLASMA Comment: eGFR was calculated using the CKD-EPI Creatinine (2020) equation. Ordering Provider: CROW CHEUNG ER Report Released Date/Time: Apr 23, 2024 08:34 AM Reporting Lab: [address] [address] Performing Lab: [address] [address] [facility] COMPREHEN SIVE PNL ASPARTATE AMINOTRANSF ERASE [ENZYMATIC ACTIVITY/VO LUME] IN SERUM OR PLASMA 35 U/L 10 - 37 05/27 Specimen Type: PLASMA Comment: eGFR was calculated using the CKD-EPI Creatinine (2020) equation. Ordering Provider: CROW CHEUNG ER Report Released Date/Time: Apr 23, 2024 08:34 AM Reporting Lab: [address] [address] Performing Lab: [address] [address] [facility] COMPREHEN SIVE PNL UREA NITROGEN [MASS/VOLUM E] IN SERUM OR PLASMA 17 mg/dL 7 - 21 05/27 Specimen Type: PLASMA Comment: eGFR was calculated using the CKD-EPI Creatinine (2020) equation. Ordering Provider: CROW CHEUNG ER Report Released Date/Time: Apr 23, 2024 08:34 AM Reporting Lab: [address] [address] Performing Lab: [address] [address] [facility] COMPREHEN SIVE PNL CALCIUM, TOTAL 9.9 mg/dL 8.7 - 10.4 05/27 Specimen Type: PLASMA Comment: eGFR was calculated using the CKD-EPI Creatinine (2020) equation. Ordering Provider: CROW CHEUNG ER Report Released Date/Time: Apr 23, 2024 08:34 AM Reporting Lab: [address] [address] Performing Lab: [address] [address] [facility] COMPREHEN SIVE PNL CARBON DIOXIDE, TOTAL [MOLES/VOLU ME] IN SERUM OR PLASMA 25 mmol/L 21 - 32 05/27 Specimen Type: PLASMA Comment: eGFR was calculated using the CKD-EPI Creatinine (2020) equation. Ordering Provider: CROW CHEUNG ER Report Released Date/Time: Apr 23, 2024 08:34 AM Reporting Lab: [address] [address] Performing Lab: [address] [address] [facility] COMPREHEN SIVE PNL CHLORIDE [MOLES/VOLU ME] IN SERUM OR PLASMA 102 mmol/L 98 - 109 05/27 Specimen Type: PLASMA Comment: eGFR was calculated using the CKD-EPI Creatinine (2020) equation. Ordering Provider: CROW CHEUNG ER Report Released Date/Time: Apr 23, 2024 08:34 AM Reporting Lab: [address] [address] Performing Lab: [address] [address] [facility] COMPREHEN SIVE PNL CREATININE [MASS/VOLUM E] IN URINE 1.11 mg/dL 0.73 - 1.18 05/27 Specimen Type: PLASMA Comment: eGFR was calculated using the CKD-EPI Creatinine (2020) equation. Ordering Provider: CROW CHEUNG ER Report Released Date/Time: Apr 23, 2024 08:34 AM Reporting Lab: [address] [address] Performing Lab: [address] [address] [facility] HIV PCR QUANT (PANEL) HIV 1 RNA [#/VOLUME] (VIRAL LOAD) IN SERUM OR PLASMA BY BHAVNA WITH PROBE DETECTION <20{co pies}/ mL 0 - 19 03/30 Specimen Type: PLASMA Comment: Low-risk levels (desirable) <200 mg/dL Moderate-ri sk levels (borderline ) 200-239 mg/dL High-risk levels: >= 240 mg/dL Normal: <150 mg/dL -Borderline High: 150-199 mg/dL -High: 200-499 mg/dL -Very High: >500 mg/dL eGFR was calculated using the CKD-EPI Creatinine (2020) equation. Optimal: <100 mg/dL -Near Optimal/Abo ve Optimal: 100-129 mg/dL -Borderline High: 130-159 mg/dL -High: 160-189 mg/dL -Very High: >=190 mg/dL Ordering Provider: OSWALDO EGAN Report Released Date/Time: Mar 12, 2024 08:39 AM Reporting Lab: [facility] [address] [phone] Performing Lab: [facility] [address] [place] [address] [facility] HIV PCR QUANT (PANEL) HIV 1 RNA [LOG #/VOLUME] (VIRAL LOAD) IN SERUM OR PLASMA BY BHAVNA WITH PROBE DETECTION <1.30 0.00 - 1.29 03/30 Specimen Type: PLASMA Comment: Low-risk levels (desirable) <200 mg/dL Moderate-ri sk levels (borderline ) 200-239 mg/dL High-risk levels: >= 240 mg/dL Normal: <150 mg/dL -Borderline High: 150-199 mg/dL -High: 200-499 mg/dL -Very High: >500 mg/dL eGFR was calculated using the CKD-EPI Creatinine (2020) equation. Optimal: <100 mg/dL -Near Optimal/Abo ve Optimal: 100-129 mg/dL -Borderline High: 130-159 mg/dL -High: 160-189 mg/dL -Very High: >=190 mg/dL Ordering Provider: OSWALDO EGAN Report Released Date/Time: Mar 12, 2024 08:39 AM Reporting Lab: [facility] [address] [facility] [address] Performing Lab: [facility] [address] [facility] [address] [facility] LYMPH SUBSET PANEL 4 ([id number]) -[facility] CD3 CELLS [#/VOLUME] IN BLOOD 1191 {cells }/uL 570 - 2400 03/30 Specimen Type: BLOOD Comment: INTERPRETIV E INFORMATION : Lymphocyte Subset 4, Pct. and Ratio, WB The CD4 cells are [place] T-cells expressing both CD3 and CD4. The CD8 cells are Cytotoxic T-cells expressing both CD3 and CD8. CD3, CD4 and CD8 percentages are reported as a percent of total lymphocytes . CD4 T-cells levels are a criterion for categorizin g HIV-related clinical conditions by CDC's classificat ion system for HIV infection. The measurement of CD4 T-cell levels has been used to establish decision points for initiating P. jirovecii prophylaxis , antiviral therapy and to monitor the efficacy of treatment. The Public Health Service (PHS) has recommended that CD4 T-cell levels be monitored every three to six months in all HIV-infecte d persons. This test was developed and its performance characteris tics determined by [facility]. It has not been cleared or approved by the [place] Food and Drug Administrat [employer]. This test was performed in a CLIA certified laboratory and is intended for clinical purposes. Performed By: [facility] [address] [place] [address] Medical Office Specialist: Sabino Diaz MD, PhD CLIA Number: [id number] Ordering Provider: OSWALDO EGAN Report Released Date/Time: Mar 12, 2024 08:39 AM Reporting Lab: [facility] [address] [facility] [address] Performing Lab: [facility] [address] [facility] [address] [facility] LYMPH SUBSET PANEL 4 ([id number]) -[facility] CD3+CD4+ (T4 HELPER) CELLS [#/VOLUME] IN BLOOD 634 {cells }/uL 430 - 1800 03/30 Specimen Type: BLOOD Comment: INTERPRETIV E INFORMATION : Lymphocyte Subset 4, Pct. and Ratio, WB The CD4 cells are [place] T-cells expressing both CD3 and CD4. The CD8 cells are Cytotoxic T-cells expressing both CD3 and CD8. CD3, CD4 and CD8 percentages are reported as a percent of total lymphocytes . CD4 T-cells levels are a criterion for categorizin g HIV-related clinical conditions by CDC's classificat ion system for HIV infection. The measurement of CD4 T-cell levels has been used to establish decision points for initiating P. jirovecii prophylaxis , antiviral therapy and to monitor the efficacy of treatment. The Public Health Service ([facility]) has recommended that CD4 T-cell levels be monitored every three to six months in all HIV-infecte d persons. This test was developed and its performance characteris tics determined by [facility]. It has not been cleared or approved by the US Food and Drug Administrat ion. This test was performed in a CLIA certified laboratory and is intended for clinical purposes. Performed By: [facility] [address] [place] [address] Medical Office Specialist: Sabino Diaz MD, PhD CLIA Number: [id number] Ordering Provider: OSWALDO EGAN Report Released Date/Time: Mar 12, 2024 08:39 AM Reporting Lab: [facility] [address] [facility] [address] Performing Lab: [address] [address] [facility] LYMPH SUBSET PANEL 4 ([id number]) -[facility] CD3+CD8+ (T8 SUPPRESSOR) CELLS [#/VOLUME] IN BLOOD 557 {cells }/uL 210 - 1200 03/30 Specimen Type: BLOOD Comment: INTERPRETIV E INFORMATION : Lymphocyte Subset 4, Pct. and Ratio, WB The CD4 cells are [place] T-cells expressing both CD3 and CD4. The CD8 cells are Cytotoxic T-cells expressing both CD3 and CD8. CD3, CD4 and CD8 percentages are reported as a percent of total lymphocytes . CD4 T-cells levels are a criterion for categorizin g HIV-related clinical conditions by CDC's classificat ion system for HIV infection. The measurement of CD4 T-cell levels has been used to establish decision points for initiating P. jirovecii prophylaxis , antiviral therapy and to monitor the efficacy of treatment. The Public Health Service ([facility]) has recommended that CD4 T-cell levels be monitored every three to six months in all HIV-infecte d persons. This test was developed and its performance characteris tics determined by [facility]. It has not been cleared or approved by the [place] Food and Drug Administrat [employer]. This test was performed in a CLIA certified laboratory and is intended for clinical purposes. Performed By: [facility] [address] [place] [address] Medical Office Specialist: Sabino Diaz MD, PhD CLIA Number: [id number] Ordering Provider: OSWALDO EGAN Report Released Date/Time: Mar 12, 2024 08:39 AM Reporting Lab: [facility] [address] [facility] [address] Performing Lab: [address] [address] [facility] LYMPH SUBSET PANEL 4 ([id number]) -[facility] CD3 CELLS/100 CELLS IN SPECIMEN 84 62 - 87 03/30 Specimen Type: BLOOD Comment: INTERPRETIV E INFORMATION : Lymphocyte Subset 4, Pct. and Ratio, WB The CD4 cells are [place] T-cells expressing both CD3 and CD4. The CD8 cells are Cytotoxic T-cells expressing both CD3 and CD8. CD3, CD4 and CD8 percentages are reported as a percent of total lymphocytes . CD4 T-cells levels are a criterion for categorizin g HIV-related clinical conditions by CDC's classificat ion system for HIV infection. The measurement of CD4 T-cell levels has been used to establish decision points for initiating P. jirovecii prophylaxis , antiviral therapy and to monitor the efficacy of treatment. The Public Health Service (PHS) has recommended that CD4 T-cell levels be monitored every three to six months in all HIV-infecte d persons. This test was developed and its performance characteris tics determined by [facility] [employer]. It has not been cleared or approved by the [place] Food and Drug Administrat [employer]. This test was performed in a CLIA certified laboratory and is intended for clinical purposes. Performed By: [facility] [address] [place] [address] Medical Office Specialist: Sabino Diaz MD, PhD CLIA Number: [id number] Ordering Provider: OSWALDO EGAN Report Released Date/Time: Mar 12, 2024 08:39 AM Reporting Lab: [facility] [address] [facility] [address] Performing Lab: [facility] [address] [facility] [address] [facility] LYMPH SUBSET PANEL 4 ([id number]) -[facility] CD3+CD4+ (T4 HELPER) CELLS/100 CELLS IN BLOOD 45 32 - 64 03/30 Specimen Type: BLOOD Comment: INTERPRETIV E INFORMATION : Lymphocyte Subset 4, Pct. and Ratio, WB The CD4 cells are [place] T-cells expressing both CD3 and CD4. The CD8 cells are Cytotoxic T-cells expressing both CD3 and CD8. CD3, CD4 and CD8 percentages are reported as a percent of total lymphocytes . CD4 T-cells levels are a criterion for categorizin g HIV-related clinical conditions by CDC's classificat ion system for HIV infection. The measurement of CD4 T-cell levels has been used to establish decision points for initiating P. jirovecii prophylaxis , antiviral therapy and to monitor the efficacy of treatment. The Public Health Service ([facility]) has recommended that CD4 T-cell levels be monitored every three to six months in all HIV-infecte d persons. This test was developed and its performance characteris tics determined by [facility]. It has not been cleared or approved by the [place] Food and Drug Administrat [employer]. This test was performed in a CLIA certified laboratory and is intended for clinical purposes. Performed By: [facility] [address] [place] [address] Medical Office Specialist: Sabino Diaz MD, PhD CLIA Number: [id number] Ordering Provider: OSWALDO EGAN Report Released Date/Time: Mar 12, 2024 08:39 AM Reporting Lab: [facility] [address] [facility] [address] Performing Lab: [facility] [address] [facility] [address] [facility] LYMPH SUBSET PANEL 4 ([id number]) -[facility] CD3+CD8+ (T8 SUPPRESSOR) CELLS/100 CELLS IN SPECIMEN 39 15 - 46 03/30 Specimen Type: BLOOD Comment: INTERPRETIV E INFORMATION : Lymphocyte Subset 4, Pct. and Ratio, WB The CD4 cells are [place] T-cells expressing both CD3 and CD4. The CD8 cells are Cytotoxic T-cells expressing both CD3 and CD8. CD3, CD4 and CD8 percentages are reported as a percent of total lymphocytes . CD4 T-cells levels are a criterion for categorizin g HIV-related clinical conditions by CDC's classificat ion system for HIV infection. The measurement of CD4 T-cell levels has been used to establish decision points for initiating P. jirovecii prophylaxis , antiviral therapy and to monitor the efficacy of treatment. The Public Health Service ([facility]) has recommended that CD4 T-cell levels be monitored every three to six months in all HIV-infecte d persons. This test was developed and its performance characteris tics determined by [facility]. It has not been cleared or approved by the [place] Food and Drug Administrat [employer]. This test was performed in a CLIA certified laboratory and is intended for clinical purposes. Performed By: [facility] [address] [place] [address] Medical Office Specialist: Sabino Diaz MD, PhD CLIA Number: [id number] Ordering Provider: OSWALDO EGAN Report Released Date/Time: Mar 12, 2024 08:39 AM Reporting Lab: [address] [address] Performing Lab: [address] [address] [facility] LYMPH SUBSET PANEL 4 ([id number]) -[facility] CD3+CD4+ (T4 HELPER) CELLS/CD3+C D8+ (T8 SUPPRESSOR CELLS) CELLS [# RATIO] IN BLOOD 1.15 {ratio } 0.80 - 3.90 03/30 Specimen Type: BLOOD Comment: INTERPRETIV E INFORMATION : Lymphocyte Subset 4, Pct. and Ratio, WB The CD4 cells are [place] T-cells expressing both CD3 and CD4. The CD8 cells are Cytotoxic T-cells expressing both CD3 and CD8. CD3, CD4 and CD8 percentages are reported as a percent of total lymphocytes . CD4 T-cells levels are a criterion for categorizin g HIV-related clinical conditions by CDC's classificat ion system for HIV infection. The measurement of CD4 T-cell levels has been used to establish decision points for initiating P. jirovecii prophylaxis , antiviral therapy and to monitor the efficacy of treatment. The Public Health Service (PHS) has recommended that CD4 T-cell levels be monitored every three to six months in all HIV-infecte d persons. This test was developed and its performance characteris tics determined by [facility] Rashad florian. It has not been cleared or approved by the [place] Food and Drug Administrat [employer]. This test was performed in a CLIA certified laboratory and is intended for clinical purposes. Performed By: [facility] [address] [place] [address] Medical Office Specialist: Sabino Diaz MD, PhD CLIA Number: [id number] Ordering Provider: OSWALDO EGAN Report Released Date/Time: Mar 12, 2024 08:39 AM Reporting Lab: [address] [address] Performing Lab: [address] [address] [facility] LYMPH SUBSET PANEL 4 ([id number]) -[facility] ANNOTATION COMMENT [INTERPRETA TION] NARRATIVE See Note 03/30 Specimen Type: BLOOD Comment: INTERPRETIV E INFORMATION : Lymphocyte Subset 4, Pct. and Ratio, WB The CD4 cells are [place] T-cells expressing both CD3 and CD4. The CD8 cells are Cytotoxic T-cells expressing both CD3 and CD8. CD3, CD4 and CD8 percentages are reported as a percent of total lymphocytes . CD4 T-cells levels are a criterion for categorizin g HIV-related clinical conditions by CDC's classificat ion system for HIV infection. The measurement of CD4 T-cell levels has been used to establish decision points for initiating P. jirovecii prophylaxis , antiviral therapy and to monitor the efficacy of treatment. The Public Health Service (PHS) has recommended that CD4 T-cell levels be monitored every three to six months in all HIV-infecte d persons. This test was developed and its performance characteris tics determined by [facility]. It has not been cleared or approved by the US Food and Drug Administrat [employer]. This test was performed in a CLIA certified laboratory and is intended for clinical purposes. Performed By: [facility] [address] [place], [place] [id number] Medical Office Specialist: Sabino Diaz MD, PhD CLIA Number: [id number] Ordering Provider: OSWALDO EGAN Report Released Date/Time: Mar 12, 2024 08:39 AM Reporting Lab: [facility] [address] [facility] [address] Performing Lab: [facility] [address] [facility] [address] [facility] PHOS PHOS 2.9 mg/dL 2.4 - 5.1 03/30 Specimen Type: PLASMA Comment: Low-risk levels (desirable) <200 mg/dL Moderate-ri sk levels (borderline ) 200-239 mg/dL High-risk levels: >= 240 mg/dL Normal: <150 mg/dL -Borderline High: 150-199 mg/dL -High: 200-499 mg/dL -Very High: >500 mg/dL eGFR was calculated using the CKD-EPI Creatinine (2020) equation. Optimal: <100 mg/dL -Near Optimal/Abo ve Optimal: 100-129 mg/dL -Borderline High: 130-159 mg/dL -High: 160-189 mg/dL -Very High: >=190 mg/dL Ordering Provider: OSWALDO EGAN Report Released Date/Time: Mar 12, 2024 08:39 AM Reporting Lab: [place] [phone] Performing Lab: [address] [address] [facility] LIPID PNL CHOLESTEROL IN HDL [MASS/VOLUM E] IN SERUM OR PLASMA 53 mg/dL 60 03/30 L Specimen Type: PLASMA Comment: Low-risk levels (desirable) <200 mg/dL Moderate-ri sk levels (borderline ) 200-239 mg/dL High-risk levels: >= 240 mg/dL Normal: <150 mg/dL -Borderline High: 150-199 mg/dL -High: 200-499 mg/dL -Very High: >500 mg/dL eGFR was calculated using the CKD-EPI Creatinine (2020) equation. Optimal: <100 mg/dL -Near Optimal/Abo ve Optimal: 100-129 mg/dL -Borderline High: 130-159 mg/dL -High: 160-189 mg/dL -Very High: >=190 mg/dL Ordering Provider: OSWALDO EGAN Report Released Date/Time: Mar 12, 2024 08:39 AM Reporting Lab: [place] [phone] Performing Lab: [place] [phone] [facility] LIPID PNL TRIGLYCERID E [MASS/VOLUM E] IN SERUM OR PLASMA 177 mg/dL 03/30 H Specimen Type: PLASMA Comment: Low-risk levels (desirable) <200 mg/dL Moderate-ri sk levels (borderline ) 200-239 mg/dL High-risk levels: >= 240 mg/dL Normal: <150 mg/dL -Borderline High: 150-199 mg/dL -High: 200-499 mg/dL -Very High: >500 mg/dL eGFR was calculated using the CKD-EPI Creatinine (2020) equation. Optimal: <100 mg/dL -Near Optimal/Abo ve Optimal: 100-129 mg/dL -Borderline High: 130-159 mg/dL -High: 160-189 mg/dL -Very High: >=190 mg/dL Ordering Provider: OSWALDO EGAN Report Released Date/Time: Mar 12, 2024 08:39 AM Reporting Lab: [place] [phone] Performing Lab: [place] [phone] [facility] LIPID PNL CHOLESTEROL IN LDL [MASS/VOLUM E] IN SERUM OR PLASMA BY DIRECT ASSAY [facility] 03/30 Specimen Type: PLASMA Comment: Low-risk levels (desirable) <200 mg/dL Moderate-ri sk levels (borderline ) 200-239 mg/dL High-risk levels: >= 240 mg/dL Normal: <150 mg/dL -Borderline High: 150-199 mg/dL -High: 200-499 mg/dL -Very High: >500 mg/dL eGFR was calculated using the CKD-EPI Creatinine (2020) equation. Optimal: <100 mg/dL -Near Optimal/Abo ve Optimal: 100-129 mg/dL -Borderline High: 130-159 mg/dL -High: 160-189 mg/dL -Very High: >=190 mg/dL Ordering Provider: OSWALDO EGAN Report Released Date/Time: Mar 12, 2024 08:39 AM Reporting Lab: [address] [address] Performing Lab: [place] [address] [facility] LIPID PNL CHOLESTEROL [MASS/VOLUM E] IN SERUM OR PLASMA 245 mg/dL 03/30 H Specimen Type: PLASMA Comment: Low-risk levels (desirable) <200 mg/dL Moderate-ri sk levels (borderline ) 200-239 mg/dL High-risk levels: >= 240 mg/dL Normal: <150 mg/dL -Borderline High: 150-199 mg/dL -High: 200-499 mg/dL -Very High: >500 mg/dL eGFR was calculated using the CKD-EPI Creatinine (2020) equation. Optimal: <100 mg/dL -Near Optimal/Abo ve Optimal: 100-129 mg/dL -Borderline High: 130-159 mg/dL -High: 160-189 mg/dL -Very High: >=190 mg/dL Ordering Provider: OSWALDO EGAN Report Released Date/Time: Mar 12, 2024 08:39 AM Reporting Lab: [address] [address] Performing Lab: [facility] [address] [place] [address] [facility] LIPID PNL CHOLESTEROL IN LDL [MASS/VOLUM E] IN SERUM OR PLASMA BY CALCULATION 157 mg/dL 03/30 H Specimen Type: PLASMA Comment: Low-risk levels (desirable) <200 mg/dL Moderate-ri sk levels (borderline ) 200-239 mg/dL High-risk levels: >= 240 mg/dL Normal: <150 mg/dL -Borderline High: 150-199 mg/dL -High: 200-499 mg/dL -Very High: >500 mg/dL eGFR was calculated using the CKD-EPI Creatinine (2020) equation. Optimal: <100 mg/dL -Near Optimal/Abo ve Optimal: 100-129 mg/dL -Borderline High: 130-159 mg/dL -High: 160-189 mg/dL -Very High: >=190 mg/dL Ordering Provider: OSWALDO EGAN Report Released Date/Time: Mar 12, 2024 08:39 AM Reporting Lab: [place] [phone] Performing Lab: [address] [address] [facility] VITAMIN D 25-HYDROX Y 25-HYDROXYV ITAMIN D3 [MASS/VOLUM E] IN SERUM OR PLASMA 48.30 ng/mL 30 - 100 03/30 Specimen Type: SERUM Comment: Deficiency <20, Insufficien cy 20-30, Sufficiency 30-100, Toxicity >100 ng/mL Ordering Provider: OSWALDO EGAN Report Released Date/Time: Mar 12, 2024 08:39 AM Reporting Lab: [place] [phone] Performing Lab: [place] [phone] [facility] COMPREHEN SIVE PNL ANION GAP IN SERUM OR PLASMA 7 mmol/L 5 - 15 03/30 Specimen Type: PLASMA Comment: Low-risk levels (desirable) <200 mg/dL Moderate-ri sk levels (borderline ) 200-239 mg/dL High-risk levels: >= 240 mg/dL Normal: <150 mg/dL -Borderline High: 150-199 mg/dL -High: 200-499 mg/dL -Very High: >500 mg/dL eGFR was calculated using the CKD-EPI Creatinine (2020) equation. Optimal: <100 mg/dL -Near Optimal/Abo ve Optimal: 100-129 mg/dL -Borderline High: 130-159 mg/dL -High: 160-189 mg/dL -Very High: >=190 mg/dL Ordering Provider: OSWALDO EGAN Report Released Date/Time: Mar 12, 2024 08:39 AM Reporting Lab: [address] [address] Performing Lab: [address] [address] [facility] COMPREHEN SIVE PNL GLOMERULAR FILTRATION RATE/1.73 SQ M.PREDICTED [VOLUME RATE/AREA] IN SERUM, PLASMA OR BLOOD BY CREATININE- BASED FORMULA (CKD-EPI 2020) 62 mL/min /{1.73 _m2} 60 03/30 Specimen Type: PLASMA Comment: Low-risk levels (desirable) <200 mg/dL Moderate-ri sk levels (borderline ) 200-239 mg/dL High-risk levels: >= 240 mg/dL Normal: <150 mg/dL -Borderline High: 150-199 mg/dL -High: 200-499 mg/dL -Very High: >500 mg/dL eGFR was calculated using the CKD-EPI Creatinine (2020) equation. Optimal: <100 mg/dL -Near Optimal/Abo ve Optimal: 100-129 mg/dL -Borderline High: 130-159 mg/dL -High: 160-189 mg/dL -Very High: >=190 mg/dL Ordering Provider: OSWALDO EGAN Report Released Date/Time: Mar 12, 2024 08:39 AM Reporting Lab: [address] [address] Performing Lab: [address] [address] [facility] COMPREHEN SIVE PNL GLUCOSE [MASS/VOLUM E] IN SERUM OR PLASMA 140 mg/dL 70 - 99 03/30 H Specimen Type: PLASMA Comment: Low-risk levels (desirable) <200 mg/dL Moderate-ri sk levels (borderline ) 200-239 mg/dL High-risk levels: >= 240 mg/dL Normal: <150 mg/dL -Borderline High: 150-199 mg/dL -High: 200-499 mg/dL -Very High: >500 mg/dL eGFR was calculated using the CKD-EPI Creatinine (2020) equation. Optimal: <100 mg/dL -Near Optimal/Abo ve Optimal: 100-129 mg/dL -Borderline High: 130-159 mg/dL -High: 160-189 mg/dL -Very High: >=190 mg/dL Ordering Provider: OSWALDO EGAN Report Released Date/Time: Mar 12, 2024 08:39 AM Reporting Lab: [address] [address] Performing Lab: [address] [address] [facility] COMPREHEN SIVE PNL POTASSIUM [MOLES/VOLU ME] IN SERUM OR PLASMA 3.9 mmol/L 3.5 - 4.7 03/30 Specimen Type: PLASMA Comment: Low-risk levels (desirable) <200 mg/dL Moderate-ri sk levels (borderline ) 200-239 mg/dL High-risk levels: >= 240 mg/dL Normal: <150 mg/dL -Borderline High: 150-199 mg/dL -High: 200-499 mg/dL -Very High: >500 mg/dL eGFR was calculated using the CKD-EPI Creatinine (2020) equation. Optimal: <100 mg/dL -Near Optimal/Abo ve Optimal: 100-129 mg/dL -Borderline High: 130-159 mg/dL -High: 160-189 mg/dL -Very High: >=190 mg/dL Ordering Provider: OSWALDO EGAN Report Released Date/Time: Mar 12, 2024 08:39 AM Reporting Lab: [address] [address] Performing Lab: [address] [address] [facility] SIVE PNL SODIUM [MOLES/VOLU ME] IN SERUM OR PLASMA 139 mmol/L 136 - 145 03/30 Specimen Type: PLASMA Comment: Low-risk levels (desirable) <200 mg/dL Moderate-ri sk levels (borderline ) 200-239 mg/dL High-risk levels: >= 240 mg/dL Normal: <150 mg/dL -Borderline High: 150-199 mg/dL -High: 200-499 mg/dL -Very High: >500 mg/dL eGFR was calculated using the CKD-EPI Creatinine (2020) equation. Optimal: <100 mg/dL -Near Optimal/Abo ve Optimal: 100-129 mg/dL -Borderline High: 130-159 mg/dL -High: 160-189 mg/dL -Very High: >=190 mg/dL Ordering Provider: OSWALDO EGAN Report Released Date/Time: Mar 12, 2024 08:39 AM Reporting Lab: [place] [phone] Performing Lab: [address] COMPREHEN SIVE PNL BILIRUBIN.T OTAL [MASS/VOLUM E] IN SERUM OR PLASMA 0.6 mg/dL 0.2 - 1.2 03/30 Specimen Type: PLASMA Comment: Low-risk levels (desirable) <200 mg/dL Moderate-ri sk levels (borderline ) 200-239 mg/dL High-risk levels: >= 240 mg/dL Normal: <150 mg/dL -Borderline High: 150-199 mg/dL -High: 200-499 mg/dL -Very High: >500 mg/dL eGFR was calculated using the CKD-EPI Creatinine (2020) equation. Optimal: <100 mg/dL -Near Optimal/Abo ve Optimal: 100-129 mg/dL -Borderline High: 130-159 mg/dL -High: 160-189 mg/dL -Very High: >=190 mg/dL Ordering Provider: OSWALDO EGAN Report Released Date/Time: Mar 12, 2024 08:39 AM Reporting Lab: [place] [id number] Performing Lab: [address] COMPREHEN SIVE PNL PROTEIN [MASS/VOLUM E] IN SERUM OR PLASMA 6.8 g/dL 5.7 - 8.2 03/30 Specimen Type: PLASMA Comment: Low-risk levels (desirable) <200 mg/dL Moderate-ri sk levels (borderline ) 200-239 mg/dL High-risk levels: >= 240 mg/dL Normal: <150 mg/dL -Borderline High: 150-199 mg/dL -High: 200-499 mg/dL -Very High: >500 mg/dL eGFR was calculated using the CKD-EPI Creatinine (2020) equation. Optimal: <100 mg/dL -Near Optimal/Abo ve Optimal: 100-129 mg/dL -Borderline High: 130-159 mg/dL -High: 160-189 mg/dL -Very High: >=190 mg/dL Ordering Provider: OSWALOD EGAN Report Released Date/Time: Mar 12, 2024 08:39 AM Reporting Lab: [address] [address] Performing Lab: [place] [id number] [place] [address] COMPREHEN SIVE PNL ALBUMIN [MASS/VOLUM E] IN SERUM OR PLASMA 4.4 g/dL 3.4 - 5.0 03/30 Specimen Type: PLASMA Comment: Low-risk levels (desirable) <200 mg/dL Moderate-ri sk levels (borderline ) 200-239 mg/dL High-risk levels: >= 240 mg/dL Normal: <150 mg/dL -Borderline High: 150-199 mg/dL -High: 200-499 mg/dL -Very High: >500 mg/dL eGFR was calculated using the CKD-EPI Creatinine (2020) equation. Optimal: <100 mg/dL -Near Optimal/Abo ve Optimal: 100-129 mg/dL -Borderline High: 130-159 mg/dL -High: 160-189 mg/dL -Very High: >=190 mg/dL Ordering Provider: OSWALDO EGAN Report Released Date/Time: Mar 12, 2024 08:39 AM Reporting Lab: [address] [address] Performing Lab: [place] [address] [facility] COMPREHEN SIVE PNL ALKALINE PHOSPHATASE [ENZYMATIC ACTIVITY/VO LUME] IN SERUM OR PLASMA 134 U/L 45 - 117 03/30 H Specimen Type: PLASMA Comment: Low-risk levels (desirable) <200 mg/dL Moderate-ri sk levels (borderline ) 200-239 mg/dL High-risk levels: >= 240 mg/dL Normal: <150 mg/dL -Borderline High: 150-199 mg/dL -High: 200-499 mg/dL -Very High: >500 mg/dL eGFR was calculated using the CKD-EPI Creatinine (2020) equation. Optimal: <100 mg/dL -Near Optimal/Abo ve Optimal: 100-129 mg/dL -Borderline High: 130-159 mg/dL -High: 160-189 mg/dL -Very High: >=190 mg/dL Ordering Provider: OSWALDO EGAN Report Released Date/Time: Mar 12, 2024 08:39 AM Reporting Lab: [address] [address] Performing Lab: [address] [address] [facility] COMPREHEN SIVE PNL ALANINE AMINOTRANSF ERASE [ENZYMATIC ACTIVITY/VO LUME] IN SERUM OR PLASMA 57 U/L 10 - 03/30 Specimen Type: PLASMA Comment: Low-risk levels (desirable) <200 mg/dL Moderate-ri sk levels (borderline ) 200-239 mg/dL High-risk levels: >= 240 mg/dL Normal: <150 mg/dL -Borderline High: 150-199 mg/dL -High: 200-499 mg/dL -Very High: >500 mg/dL eGFR was calculated using the CKD-EPI Creatinine (2020) equation. Optimal: <100 mg/dL -Near Optimal/Abo ve Optimal: 100-129 mg/dL -Borderline High: 130-159 mg/dL -High: 160-189 mg/dL -Very High: >=190 mg/dL Ordering Provider: OSWALDO EGAN Report Released Date/Time: Mar 12, 2024 08:39 AM Reporting Lab: [address] [address] Performing Lab: [address] [address] [facility] COMPREHEN SIVE PNL ASPARTATE AMINOTRANSF ERASE [ENZYMATIC ACTIVITY/VO LUME] IN SERUM OR PLASMA 33 U/L 10 - 37 03/30 Specimen Type: PLASMA Comment: Low-risk levels (desirable) <200 mg/dL Moderate-ri sk levels (borderline ) 200-239 mg/dL High-risk levels: >= 240 mg/dL Normal: <150 mg/dL -Borderline High: 150-199 mg/dL -High: 200-499 mg/dL -Very High: >500 mg/dL eGFR was calculated using the CKD-EPI Creatinine (2020) equation. Optimal: <100 mg/dL -Near Optimal/Abo ve Optimal: 100-129 mg/dL -Borderline High: 130-159 mg/dL -High: 160-189 mg/dL -Very High: >=190 mg/dL Ordering Provider: OSWALDO EGAN Report Released Date/Time: Mar 12, 2024 08:39 AM Reporting Lab: [address] [address] Performing Lab: [place] [phone] [facility] FABIENNEEN SIVE PNL UREA NITROGEN [MASS/VOLUM E] IN SERUM OR PLASMA 18 mg/dL 7 - 21 03/30 Specimen Type: PLASMA Comment: Low-risk levels (desirable) <200 mg/dL Moderate-ri sk levels (borderline ) 200-239 mg/dL High-risk levels: >= 240 mg/dL Normal: <150 mg/dL -Borderline High: 150-199 mg/dL -High: 200-499 mg/dL -Very High: >500 mg/dL eGFR was calculated using the CKD-EPI Creatinine (2020) equation. Optimal: <100 mg/dL -Near Optimal/Abo ve Optimal: 100-129 mg/dL -Borderline High: 130-159 mg/dL -High: 160-189 mg/dL -Very High: >=190 mg/dL Ordering Provider: OSWALDO EGAN Report Released Date/Time: Mar 12, 2024 08:39 AM Reporting Lab: [address] [address] Performing Lab: [address] [address] [facility] FABIENNELEXI STRICKLANDIsa PNL CALCIUM, TOTAL 9.7 mg/dL 8.7 - 10.4 03/30 Specimen Type: PLASMA Comment: Low-risk levels (desirable) <200 mg/dL Moderate-ri sk levels (borderline ) 200-239 mg/dL High-risk levels: >= 240 mg/dL Normal: <150 mg/dL -Borderline High: 150-199 mg/dL -High: 200-499 mg/dL -Very High: >500 mg/dL eGFR was calculated using the CKD-EPI Creatinine (2020) equation. Optimal: <100 mg/dL -Near Optimal/Abo ve Optimal: 100-129 mg/dL -Borderline High: 130-159 mg/dL -High: 160-189 mg/dL -Very High: >=190 mg/dL Ordering Provider: OSWALDO EGAN Report Released Date/Time: Mar 12, 2024 08:39 AM Reporting Lab: [address] [address] Performing Lab: [address] [address] [facility] PNL CARBON DIOXIDE, TOTAL [MOLES/VOLU ME] IN SERUM OR PLASMA 28 mmol/L 21 - 32 03/30 Specimen Type: PLASMA Comment: Low-risk levels (desirable) <200 mg/dL Moderate-ri sk levels (borderline ) 200-239 mg/dL High-risk levels: >= 240 mg/dL Normal: <150 mg/dL -Borderline High: 150-199 mg/dL -High: 200-499 mg/dL -Very High: >500 mg/dL eGFR was calculated using the CKD-EPI Creatinine (2020) equation. Optimal: <100 mg/dL -Near Optimal/Abo ve Optimal: 100-129 mg/dL -Borderline High: 130-159 mg/dL -High: 160-189 mg/dL -Very High: >=190 mg/dL Ordering Provider: OSWALDO EGAN Report Released Date/Time: Mar 12, 2024 08:39 AM Reporting Lab: [address] [address] Performing Lab: [address] [address] [facility] PNL CHLORIDE [MOLES/VOLU ME] IN SERUM OR PLASMA 104 mmol/L 98 - 109 03/30 Specimen Type: PLASMA Comment: Low-risk levels (desirable) <200 mg/dL Moderate-ri sk levels (borderline ) 200-239 mg/dL High-risk levels: >= 240 mg/dL Normal: <150 mg/dL -Borderline High: 150-199 mg/dL -High: 200-499 mg/dL -Very High: >500 mg/dL eGFR was calculated using the CKD-EPI Creatinine (2020) equation. Optimal: <100 mg/dL -Near Optimal/Abo ve Optimal: 100-129 mg/dL -Borderline High: 130-159 mg/dL -High: 160-189 mg/dL -Very High: >=190 mg/dL Ordering Provider: OSWALDO EGAN Report Released Date/Time: Mar 12, 2024 08:39 AM Reporting Lab: [address] [address] Performing Lab: [address] [address] [facility] CARMELINA CAPELLAN PNL CREATININE [MASS/VOLUM E] IN URINE 1.30 mg/dL 0.73 - 1.18 03/30 H Specimen Type: PLASMA Comment: Low-risk levels (desirable) <200 mg/dL Moderate-ri sk levels (borderline ) 200-239 mg/dL High-risk levels: >= 240 mg/dL Normal: <150 mg/dL -Borderline High: 150-199 mg/dL -High: 200-499 mg/dL -Very High: >500 mg/dL eGFR was calculated using the CKD-EPI Creatinine (2020) equation. Optimal: <100 mg/dL -Near Optimal/Abo ve Optimal: 100-129 mg/dL -Borderline High: 130-159 mg/dL -High: 160-189 mg/dL -Very High: >=190 mg/dL Ordering Provider: OSWALDO EGAN Report Released Date/Time: Mar 12, 2024 08:39 AM Reporting Lab: [address] [address] Performing Lab: [address] [address] [facility] Vital Signs Combined list of inpatient and outpatient Vital Signs from Department of Defense and Veterans Affairs, ranging from 12 months to all on record, depending upon the facility. Vital Sign Value Date Comments Source SYSTOLIC BLOOD PRESSURE 152 05/27/2024 13:49:34 [facility] DIASTOLIC BLOOD PRESSURE 92 05/27/2024 13:49:34 [facility] PULSE OXIMETRY 94 05/27/2024 13:49:34 [facility] WEIGHT 264.4 05/27/2024 13:49:34 [facility] BMI 33kg/m2 05/27/2024 13:49:34 [facility] PAIN 7 05/27/2024 13:49:34 [facility] TEMPERATURE 97.7 05/27/2024 13:49:34 [facility] PULSE 103 05/27/2024 13:49:34 [facility] RESPIRATION 22 05/27/2024 13:49:34 [facility] SYSTOLIC BLOOD PRESSURE 153 05/11/2024 14[facility]19:31 [facility] DIASTOL[facility] PRESSURE 99 05/11/2024 14:19:31 [facility] PULSE OXIMETRY 94 05/11/2024 14:19:31 [facility] WEIGHT 268 05/11/2024 14:19:31 [facility] BMI 34kg/m2 05/11/2024 14:19:31 [facility] PAIN 6 05/11/2024 14:19:31 [facility] HEIGHT 75 05/11/2024 14:19:31 [facility] TEMPERATURE 97.5 05/11/2024 14:19:31 [facility] PULSE 70 05/11/2024 14:19:31 [facility] RESPIRATION 20 05/11/2024 14:19:31 [facility] SYSTOLIC BLOOD PRESSURE 153 12/15/2023 13:59:53 [facility] DIASTOLIC BLOOD PRESSURE 104 12/15/2023 13:59:53 [facility] PULSE OXIMETRY 95 12/15/2023 13:59:53 [facility] WEIGHT 269 12/15/2023 13:59:53 [facility] BMI 34kg/m2 12/15/2023 13:59:53 [facility] PAIN 5 12/15/2023 13:59:53 [facility] HEIGHT 75 12/15/2023 13:59:53 [facility] TEMPERATURE 97.7 12/15/2023 13:59:53 [facility] PULSE 73 12/15/2023 13:59:53 [facility] SYSTOLIC BLOOD PRESSURE 146 12/10/2023 11:45:29 [facility] DIASTOLIC BLOOD PRESSURE 99 12/10/2023 11:45:29 [facility] PULSE OXIMETRY 94 12/10/2023 11:45:29 [facility] WEIGHT 274 12/10/2023 11:45:29 [facility] BMI 34kg/m2 12/10/2023 11:45:29 [facility] TEMPERATURE 97.8 12/10/2023 11:45:29 [facility] PULSE 76 12/10/2023 11:45:29 [facility] RESPIRATION 16 12/10/2023 11:45:29 [facility] Encounters Combined list of: 1) Encounters from Department of Veterans Affairs facilities going back up to thelast 18 months. 2) Encounters from the Department of Defense facilities going back up to 280 months. Location Location Details Encounter Type Encounter Number Reason For Visit Attending Provider ADM Date DC Date Status Disposition Source [facility] Outpatient Encounter [id number] 12/13 [facility] OFFICE O/P EST MOD 30-39 MIN [id number] [id number] Diagnos is: ICD-10- CM F33.41 Major depress ketty disorde r, recurre nt, in partial remissi on
PREET[facility] MARCOS [facility] Out[facility] Encounter [id number] 01/[address] [facility] Outpatient Encounter [id number] 01/[address] [facility] Outpatient Encounter [id number] 01/[address] [facility] Outpatient Encounter [id number] 01/[address] [facility] Outpatient Encounter [id number] [id number] 01/[address] [facility] Outpatient Encounter [id number] [id number] 01/[address] [facility] Outpatient Encounter [id number] [id number] 01/[address] [facility] Outpatient Encounter [id number] [id number] 02/[address] 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
BEVERLEY SAMUEL 03/[address] [facility] QNHP OL DIG ASSMT&MGMT 5-10 [id number] Diagnos is: ICD-10- CM I48.0 Paroxys mal atrial fibrill ation<b r/> ELIAN COOPER 04/17 [facility] Outpatient Encounter [id number] 04/18 [facility] Outpatient Encounter [id number] [id number] 05/[address] [facility] Outpatient Encounter [id number] [id number] 05/[address] [facility] Outpatient Encounter [id number] [id number] 05/[address] [facility] Outpatient Encounter [id number] [id number] 05/[address] [facility] Outpatient Encounter [id number] [id number] 05/17 [facility] OFFICE O/P EST MOD 30 MIN [id number] [id number] Diagnos is: ICD-10- CM B20 Human immunod eficien cy virus [HIV] disease
OSWALDO EGAN 05/20 [facility] Outpatient Encounter [id number] 05/20 [facility] OFFICE O/P EST MOD 30 MIN [id number] [id number] Diagnos is: ICD-10- CM N17.9 Acute kidney failure , unspeci fied
NANCY JAIMES 05/[address] [facility] Outpatient Encounter [id number] [id number] 05/[address] [facility] Outpatient Encounter [id number] [id number] 05/[address] [facility] Outpatient Encounter [id number] [id number] 05/[address] [facility] Outpatient Encounter [id number] [id number] 05/[address] [facility] Outpatient Encounter [id number] [id number] 05/[address] [facility] Outpatient Encounter [id number] [id number] 05/[address] [facility] Outpatient Encounter [id number] [id number] 05/[address] [facility] Outpatient Encounter [id number] [id number] 05/[address] [facility] Outpatient Encounter [id number] 06/[address] [facility] Outpatient Encounter [id number] [id number] 06/12 [facility] OFFICE O/P EST MOD 30 MIN [id number] [id number] Diagnos is: ICD-10- CM F33.41 Major depress ketty disorde r, recurre nt, in partial remissi on
PREETI MARCOS 06/12 [facility] Outpatient Encounter [id number] [id number] 08/18 [facility] Outpatient Encounter [id number] [id number] 08/[address] [facility] Outpatient Encounter [id number] [id number] 08/[address] [facility] Outpatient Encounter [id number] [id number] 08/[address] [facility] Outpatient Encounter [id number] [id number] 08/[address] [facility] Outpatient Encounter [id number] [id number] 08/27 [facility] PSYTX W PT W E/M 30 MIN [id number] [id number] Diagnos is: ICD-10- CM F32.5 Major depress ketty disorde r, single episode , in full remissi on
PREETI MARCOS 09/11 [facility] Outpatient Encounter [id number] 09/15 [facility] Outpatient Encounter [id number] [id number] 09/30 [facility] Outpatient Encounter [id number] [id number] 09/30 [facility] En[facility] [id number] [id number] 10/28 [facility] En[facility] [id number] [id number] 11/09 [facility] En[facility] [id number] [id number] 11/10 [facility] Outpatient Encounter [id number] [id number] 11/[address] [facility] Outpatient Encounter [id number] [id number] 11/18 [facility] Outpatient Encounter [id number] [id number] FRANCINESHYANN 11/[address] [facility] Outpatient Encounter [id number] [id number] 11/[address] [facility] Outpatient Encounter [id number] [id number] 12/[address] [facility] Outpatient Encounter [id number] [id number] 12/[address] [facility] Outpatient Encounter [id number] [id number] 12/[address] [facility] OFF/OP CONSLTJ NEW/EST HI 55 [id number] [id number] Diagnos is: ICD-10- CM Z01.810 Encount er for preproc edural cardiov ascular examina tion
ANTONI PRAJAPATI 12/[address] [facility] Outpatient Encounter [id number] [id number] 12/11 [facility] OFFICE O/P EST MOD 30 MIN [id number] [id number] Diagnos is: ICD-10- CM M75.101 Unsp rotatr- cuff tear/ru ptr of right shoulde r, not trauma< br/> Lencho JOHNSON 12/14 [facility] Outpatient Encounter [id number] [id number] 12/[address] [facility] Outpatient Encounter [id number] [id number] 12/[address] [facility] Outpatient Encounter [id number] [id number] 12/30 [facility] Outpatient Encounter [id number] [id number] 01/26 [facility] Outpatient Encounter [id number] 02/04 [facility]INCENT GARCIA [facility] Outpatient Encounter [id number] [id number] 02/[address] [facility] Outpatient Encounter [id number] [id number] 02/[address] [facility] Outpatient Encounter [id number] [id number] 02/[address] [facility] Outpatient Encounter [id number] [id number] 02/26 [facility] Outpatient Encounter [id number] [id number] SHYANN ESCAMILLA 03/02 [facility] QNHP OL DIG ASSMT&MGMT 5-10 [id number] Diagnos is: ICD-10- CM I48.0 Paroxys mal atrial fibrill ation<b r/> ELIAN COOPER 03/[address] [facility] Outpatient Encounter [id number] [id number] 03/[address] [facility] Outpatient Encounter [id number] 03/18 [facility] Outpatient Encounter [id number] [id number] 03/30 [facility] Outpatient Encounter [id number] [id number] 04/05 [facility] Outpatient Encounter [id number] [id number] 04/08 [facility] Outpatient Encounter [id number] [id number] 04/[address] [facility] Outpatient Encounter [id number] [id number] Diagnos is: ICD-10- CM B20 Human immunod eficien cy virus [HIV] disease
OSWALDO EGAN 04/14 [facility] Outpatient Encounter [id number] 04/16 [facility] Outpatient Encounter [id number] [id number] 04/[address] [facility] Outpatient Encounter [id number] [id number] LEE REGALADO 04/23 [facility] Outpatient Encounter [id number] SAM STRICKLAND 05/06 [facility] OFF[facility] O/P EST MOD 30 MIN [id number] [id number] Diagnos is: ICD-10- CM N17.9 Acute kidney failure , unspeci fied
NANCY JAIMES 05/11 [facility] Outpatient Encounter [id number] [id number] 05/[address] [facility] Outpatient Encounter [id number] [id number] 05/[address] [facility] Outpatient Encounter [id number] 05/[address] [facility] Outpatient Encounter [id number] 05/27 [facility] OFFICE O/P EST LOW 20 MIN [id number] [id number] Diagnos is: ICD-10- CM M25.569 Pain in unspeci fied knee
ANA,RASHID L L 05/27 [facility] Outpatient Encounter [id number] 05/27 [facility] Outpatient [facility]counter [id number] [id number] 05/[address] [facility] Outpatient Encounter [id number] 05/[address] [facility] Outpatient Encounter [id number] 05/[address] [facility] Outpatient Encounter [id number] [id number] 05/[address] [facility] Outpatient Encounter [id number] [id number] 06/01 [facility] Social History Combined list of available smoking, tobacco, and other social history from Department of Defense and Veterans Affairs facilities. Social History Type Response Date Comment Source Tobacco smoking status [facility]-TOBACCO FORMER USER 12/10/2023 [facility] History of tobacco use [place]-TOBACCO QUIT 15 YRS OR MORE 12/10/2023 [facility] History of tobacco use [place] FOR[place] US[place] 08/13/2022 [facility] History of tobacco use [place]-TO[place]ACCO FORMER USER 04/03/2021 [facility] History of tobacco use [place]-TOBACCO QUIT 5 TO < 15 YRS 01/18/2020 [facility] History of tobacco use [facility]-TOBACCO FORMER USER 11/27/2018 [facility] History of tobacco use [place]-TOBACCO FORMER USER 01/23/2018 [facility] History of tobacco use TOBACCO CESSATION MEDS REFUSED 05/01/2017 STOP 10YEARS AGO [facility] History of tobacco use TOBACCO CESSATION MEDS REFUSED 03/18/2016 STOPPED 8YRS AGO [facility] History of tobacco use LIFETIME NON-USER OF TOBACCO 12/16/2013 [facility] Plan of Care List of future care activities from Department of Veterans Affairs facilities. Additional future care activities may be listed in the Assessment and Plan section. Date/Time Care Activity Care Activity Detail Facili ty 10/05/2024 AMBULATORY - NONE AMBULATORY - NONE BRIAN GFIELD [facility] 10/19/2024 AMBULATORY - NONE AMBULATORY - NONE DEC[facility] 05/25/2024 Consult Order COMMUNITY CARE-O RTHO GENERAL Cons Safety Admin Assistant's [facility] 06/01/2024 Consult Order CARDIOLOGY OUTPA TIENT Cons Safety Admin Assistant's [facility] Advance Directives List of completed, amended, or rescinded Advance Directives on record at Department of Veterans Affairs facilities. An actual copy of the Directive is not included. Date Advance Directive Provider Source 12/31/2023 ADVANCE DIRECTIVE DISCUSSION [facility]
--- OUTSIDE RECORDS SUMMARY | 2024-06-02 06:04 | XMS_ITS | Clinical Summary ---
[facility] Organization [facility] Address [address] [place] [address] Care Team Providers Care Rn Mental Health Name Role Phone Administration, [facility] Primary Care Provide r Unavailable Allergies Active Allergy Reactions Criticality Noted Date Comments Ajnyzpa-Dfd-Aas Reductase Inhibitors Muscle pain,Unknown Medium 05/24/2019 Info from 06/12/21 neuro O.V. Doesn't remember reactions Info from 06/12/21 neuro O.V. Medications venlafaxine (EFFEXOR) 75 mg tablet Take 1 tablet (75 mg total) by mouth 2 (two) times a day 06/13/19 24 Active diclofenac sodium (VOLTAREN) 1 % gel Apply topically as needed Active emtricitabine (EMTRIVA) 200 mg capsule Take 1 capsule (200 mg total) by mouth Active emtricitabine-teno fovir disoproxil fumerate (TRUVADA) 200-300 mg per tablet Take 1 tablet by mouth daily Active metoprolol XL (TOPROL-XL) 50 mg extended release tablet Take 1 tablet (50 mg total) by mouth nightly 08/02/19 23 Active potassium chloride ER 20 mEq CR tablet Take 1 tablet (20 mEq total) by mouth daily Active tamsulosin (FLOMAX) 0.4 mg extended release capsule Take 1 capsule (0.4 mg total) by mouth daily 04/03/20 21 Active diphenhydrAMINE 25 mg capsule Take 1 tablet/capsule (25 mg total) by mouth 2 (two) times a day Active busPIRone (BUSPAR) 5 mg tablet Take 1 tablet (5 mg total) by mouth daily Active apixaban (ELIQUIS) 5 mg tablet Take 1 tablet (5 mg total) by mouth daily Active pantoprazole DR (PROTONIX) 40 mg EC tablet Take 1 tablet (40 mg total) by mouth daily Active dilTIAZem XR (dilTIAZem CD) 240 mg 24 hr capsule Take 1 capsule (240 mg total) by mouth daily Active aspirin 81 mg chewable tablet Take 1 tablet (81 mg total) by mouth daily 30 tablet 2 11/25/19 24 Active lisinopriL (PRINIVIL,ZESTRIL) 5 mg tablet Take 2 tablets (10 mg total) by mouth daily 60 tablet 11/24/19 24 Active ergocalciferol (VITAMIN D) 50,000 unit capsule Take 1 capsule (50,000 Units total) by mouth once a week Active bictegravir-emtric itabine-tenofovir (BIKTARVY) 50-200-25 mg tablet Take 1 tablet by mouth daily Active ascorbic acid (VITAMIN C) 500 mg tablet,chewable Take 1 tablet/chew tab (500 mg total) by mouth 2 (two) times a day 60 tablet/chew tab 12/24/19 24 Active oxyCODONE-acetamin ophen (PERCOCET) 5-325 mg per tabletIndications: Pain Take 1-2 tablets by mouth every 4 (four) hours as needed for pain 30 tablet 12/24/19 24 Active Additional Information Patient not taking.Reported on 03/18/2024 senna-docusate (PERICOLACE) 8.6-50 mg Take 1-2 tablets daily prn for constipation 30 tablet 12/24/19 24 Active Additional Information Patient not taking.Reported on 03/18/2024 ondansetron ODT (ZOFRAN-ODT) 4 mg disintegrating tablet Take 1 tablet (4 mg total) by mouth every 6 (six) hours as needed for nausea or vomiting 10 tablet 12/24/19 24 Active rosuvastatin (CRESTOR) 20 mg tabletIndications: Coronary artery disease involving confederated coos coronary artery of confed[place] coos heart without angina pectoris Take 1 tablet (20 mg total) by mouth daily 90 tablet 3 03/18/20 24 Active Active Problems Problem Noted Date Diagnosed Date NSTEMI (non-ST elevated myocardial infarction) ( [facility]) 11/24/2023 ARIADNA (acute kidney injury) 11/24/2023 Acute chest pain 11/23/2023 Acute coronary syndrome (CMS/HCC) 11/23/2023 Supraventricular tachycardia 11/23/2023 Atrial fibrillation (CMS/HCC) 11/23/2023 Primary hypertension 11/23/2023 Hyperlipidemia 11/23/2023 HIV (human immunodeficiency virus infection) CKD (chronic kidney disease) 11/23/2023 Elevated liver enzymes 11/23/2023 High anion gap metabolic acidosis 11/23/2023 Lactic acidosis 11/23/2023 Complete tear of right rotator cuff 09/10/2023 Encounters Date Type Department Care Team Description 05/31/2024 Telephone [facility] Orthopedics and Sports Medicine [address] [facility] [address] [place] [address] Altaf Naidu MD 03/24/2024 Telephone [facility] Cardiology [address] [facility] 8th [place] [address] [place] [address] Danielle Meek 03/18/2024 2:00 PM CAKE WRAPPER Office Visit [facility] Medical [facility] Cardiology [address] [facility] [address] [place] [phone] Kerry Joseph NP PSVT (paroxysmal supraventricular tachycardia) ([facility]); Paroxysmal atrial fibrillation (CMS/HCC) ([facility]); Coronary artery disease involving confederated coos coronary artery of confed[place] coos heart without angina pectoris; Orthostatic syncope; Hospital discharge follow-up; Lipid screening 03/18/2024 Telephone [facility] Cardiology [address] [facility] [address] [place] [phone] Kerry Joseph NP 03/02/2024 Orders Only [facility] Cardiology [address] [facility] [address] [place] [phone] Sarah Wong NP from Last 3 Months Surgical History Surgery Date Site/Laterality Comments SHOULDER SURGERY Bilateral LEG SURGERY Left Eligio placed below the hip joint SPINE SURGERY Lumbar fusion FOOT SURGERY Right screw in the heel of the foot Medical History Medical History Date Comments Hypertension Sleep apnea Arrhythmia Atrial Fibrillat ion and Hx of V-Tach HIV disease (CMS/HCC) (HCC) HIV + Arthritis Social History Tobacco Use Types Packs/Day Years Used Date Smoking Tobacco: Former Cigarettes Passive Smoke Exposure: Never Smokeless Tobacco: Never Tobacco Cessation:Counseling Given: Not Answered AUDIT-C Answer Date Recorded Q1: How often do you have a drink containing alcohol? 4 or more times a week 01/13/2024 Q2: How many drinks containi ng alcohol do you have on a typical day when you are drinking? 3 or 4 Q3: How often do you have si x or more drinks on one occasion? Daily or almost daily 01/13/2024 PHQ-2 Answer Date Recorded PHQ-2 Total Score 0 11/23/2023 Personal Safety Answer Date Recorded Have you ever been in or are you currently in a harmful physical or emotional relationship or is someone making you feel afraid or unsafe? Denies 12/24/2023 Sex and Gender Information Value Date Recorded Sex Assigned at Not on file Legal Sex Male 9:53 AM CAKE WR[employer] Gender Identity Not on file Sexual Orientation Not on file Obstetrics History Last Filed Vital Signs Vital Sign Reading Time Taken Comments Blood Pressure 122/84 03/18/2024 2:02 PM [employer]KE [employer] Pulse 89 03/18/2024 2:02 PM [employer] Temperature 36.3 ??C (97.4 ??F) 12/24/2023 3:00 PM CD T Respiratory Rate 18 12/24/2023 3:00 PM CDT Oxygen Saturation 95% 03/18/2024 2:02 PM CAKE WR[employer]PER Inhaled Oxygen Concentration - - Weight 117.5 kg (259 lb) 03/18/2024 2:02 PM [employer]KE WR[employer] Height 190.5 cm (6' 3 ) 03/18/2024 2:02 PM [employer]KE WR[employer]PER Body Mass Index 32.37 03/18/2024 2:02 PM CAKE WR[employer]PER Plan of Treatment Health Maintenance Due Date Last Done Comments Colon Cancer Screening-Colonoscopy 1960 HLA B 5701 Typing 1962 Prostate Cancer Screening-PSA 1962 T Spot (quantiferon gold) 1962 HIV+ Chlamydia and Gonorrhea Screening (Rectal) 1973 HIV + Chlamydia and Gonorrhe a Screening (Urine) 1975 HIV+ Chlamydia and Gonorrhea Screening (Throat) 1975 Hepatitis C Screening 1975 RPR Screening 1975 G6PD 02/25/1980 Hemoglobin A1C 02/25/1980 Hepatitis B Screening 02/25/1980 Regular Well Visit/Exam 18-64 02/25/1980 Osteoporosis Screening-Bone Density Scan 02/25/2012 Covid-19 Vaccine (2 - Jansse n risk series) 08/10/2020 07/13/2020 Hepatitis B Vaccines (1 of 3 - Risk 3-dose series) 2022 DTaP/Tdap/Td Vaccine (2 - Td or Tdap) 12/17/2023 12/16/2013, 08/26/1997 Influenza Vaccine (#1) 2023 , 02/18/2022, 04/03/2021, Additional history exists Depression Screening 11/21/2024 11/22/2023, 11/22/19 24 Proteinuria screening ? Urinalysis (UA) 11/22/2024 11/23/2023 Lipid Panel 03/18/2025 03/18/2024 Pneumococcal vaccine <65 (4 of 4 - PPSV23 or PCV20) 2027 05/09/2015, 06/15/2014, 11/04/2001 Hepatitis A Vaccines Completed 01/26/2019, 06/11/19 19 Zoster Vaccine Completed 02/18/2022, 04/03/2021 Medical Devices Implanted Type Area Ice Cream Freezer Assistant Device Identifier Shelf Expiration Date Model / Serial / Lot Holli Endoscopy Afton Suture Alphavent 4.75mm With 3-Strands 1.4mm Xbraid Tt [id number] - [id number] Implanted:Qty: 1 on 12/24/2023 by Altaf Naidu MD at [facility] Right: Shoulder Holli Endoscopy [id number] 10/23/2024 [id number] / / [id number] [employer] Corkscrew L4.75 Mr Tape Full Thread Afton Suture Biocomposite Sterile Disposable Latex Free [id number] - [id number] Implanted:Qty: 1 on 12/24/2023 by Altaf Naidu MD at [facility] Right: Shoulder [employer] [id number] 08/25/2026 [id number] / / [id number] Procedures Procedure Name Priority Date/Time Associated Diagnosis Comments POCT LIPID PANEL Routine 03/18/2024 2:14 PM CAKE WR[employer]PER Lipid screening URINALYSIS AND REFLEX TO MICROSCOPIC AND CULTURE Routine 11/23/2023 6:08 PM CDT from Last 3 Months or Most Recently Relevant to Health Maintenance Results * POCT lipid panel (03/18/2024 2:14 PM CAKE WR[employer]PER) Cholesterol, POC 248 mg/dL HDL, POC 41 mg/dL Triglycerides, POC 161 mg/dL LDL Cholesterol POC 175 mg/dL Chol/HDL Ratio, POC 4.3 Non-HDL Cholesterol, POC 207 mg/dL Cholesterol Total, POC 248 mg/dL Capillary blood 03/18/2024 2 :14 PM CAKE WR[employer]PER Kerry Joseph NP POINT OF CARE TEST ORDERA BLES Edited Result - Final * (ABNORMAL) Urinalysis reflex to microscopic and culture Urine (11/23/2023 6:08 PM CDT) Color, ur Yellow Yellow Clarity, ur Clear Clear [facility] A [facility] (LEO) Specific gravity, ur 1.034(H) 1.003 - 1.030 [facility] ([facility]) pH, urine 6.0 [facility] ([facility]) Comment: Interpretive Data ? Urine pH is affected by diet, medications, systemic acid-base disturbances, and renal tubular function. ??pH may affect urinary stone formation. ??For example, urine pH below 6.0 may help reduce the tendency for calcium phosphate stones and pH greater than 6.0 may reduce the tendency for uric acid stone formation. Source: [employer] Current Interpretive Data was last revised on 2017 Protein, ur ql Negative Negative [facility] R [facility] ([facility]) Glucose, ur ql Negative Negative [facility] ([facility]) Ketones, ur Negative Negative [facility] ([facility]) Bilirubin, ur Negative Negative [facility] ([facility]) Blood, ur Negative Negative [facility] ([facility]) Urobilinogen, ur <2.0 <2.0 mg/dL [facility] ([facility]) Nitrite, ur Negative Negative [facility] ([facility]) Leukocyte esterase, ur Negative Negative CANDIDO CORDERO ([facility]) UA reflex comment Reflex conditions for microscopic UA and culture not met. CANDIDO CORDERO ([place]) Urine 11/23/2023 6:08 PM CDT 11/23/2023 6:17 PM CDT us Lul Rahman MD LAB MICROBIOLOGY - GENERAL OR DERABLES Final Result CANDIDO GIL (LEO) [address] [facility] Department [place] [address] from Last 3 Months or Most Recently Relevant to Health Maintenance Insurance [facility] Advance Directives For more information, please contact: [phone] * Full Code (Latest Code Status on File) Date Activated Date Inactivated Comments 11/23/2023 4:47 AM 11/24/2023 11:08 PM Care Teams Rn Mental Health Relationship Specialty Start Date End Date Tiffany Ugarte MD PCP - General Telecom Network Manager 06/01/24
--- OUTSIDE RECORDS SUMMARY | 2024-06-02 06:04 | XMS_ITS | Encounter Summary ---
Author Name [facility] [place] Organization [facility] [place] [place] Address [address] [place] [address] Care Team Providers Care Community Director Name Role Phone FARIBA CHEUNG Primary Care Provider Unavailabl e Selected Encounter This section includes the information on record at OR for the Encounter. Date/Time Encounter Type Encounter Description Reason Provider Source Dec 10, 2023 11:00 AM OFF/OP CONSLTJ NEW/EST HI 55 CARDIOLOGY ICD-10-CM Z01.810 Encounter for preprocedural cardiovascular examination ANTONI SANFORD Isa Encounter Template Text not used by [place] Assessments - Encounter Diagnoses This section includes the primary and secondary diagnoses documented for the Encounter. Date/Time Primary/Secondary Diagnosis Diagnosis Name Provider Source Dec 10, 2023 12:09 PM PRIMARY Encounter for preprocedural cardiovascular examination ANTONI SANFORD [facility] Dec 10, 2023 12:09 PM SECONDARY Chronic kidney disease, unspecified REBECCA-ZAHEERD ALAA Isa [facility] [place] Dec 10, 2023 12:09 PM SECONDARY Essential (primary) hypertension SHRUTHI SANFORDA Isa [facility] [place] Dec 10, 2023 12:09 PM SECONDARY Human immunodeficiency virus [HIV] disease JUVENAL ALAA Isa [facility] [place] Dec 10, 2023 12:09 PM SECONDARY Hyperlipidemia, unspecified JUVENAL ALAA E [facility] [place] Dec 10, 2023 12:09 PM SECONDARY Paroxysmal atrial fibrillation SHRUTHI SANFORDA Isa [facility] Plan of Treatment: Future Appointments (+ 6 months) and Future Tests (+/- 45 days) The Plan of Treatment section includes future care activities for the patient [facility] [place] [facility] This section includes future appointments and future orders which are active, pending or scheduled. Future Appointments This section includes appointments that were scheduled to occur 6 months from the date of the Encounter, up to a maximum of 20 appointments. The data comes from all [facility] facilities. Appointment Date/Time Appointment Type Appointme nt Facility Name Dec 15, 2023 02:00 PM AMBULATORY - MEDICINE [facility] Jan 27, 2024 03:00 PM AMBULATORY - PSYCHIATRY [facility] Feb 03, 2024 01:30 PM AMBULATORY - NONE [facility] Mar 30, 2024 01:50 PM AMBULATORY - NONE [facility] Apr 14, 2024 01:30 PM AMBULATORY - NONE [facility] May 11, 2024 01:30 PM AMBULATORY - NONE [facility] May 27, 2024 02:00 PM AMBULATORY - MEDICINE [facility] May 27, 2024 02:40 PM AMBULATORY - NONE [facility] Vital Signs: All taken on the encounter date This section contains inpatient and outpatient Vital Signs collected on the date of the Encounter. Date/Time Temperature Pulse Blood Pressure Respiratory Rate SP02 Pain Height Weight Body Mass Index Source Dec 10, 2023 11:46 AM 137/100 [facility] Dec 10, 2023 11:45 AM 97.8 76 146/99 16 94 274 34 [facility] Social History: Smoking Status (Most current) and Tobacco Use (All prior to encounter date) This section includes the most current, and the historical, smoking and tobacco- related health factors from the [place] facility where the Encounter took place. Current Smoking Status This section includes the most current smoking, or tobacco-related health factor, from the [place] facility where the Encounter took place. Date/Time Current Smoking Status Comment Kyra kumar Dec 10, 2023 11:00 AM VA-TOBACCO FORMER USER [facility] Tobacco Use History This section includes a history of the smoking, or tobacco-related health factors, that were collected on or before the date of the Encounter. The data comes from the [place] facility where the Encounter took place. Date/Time Smoking Status/Tobacco Use Comment F acility Dec 10, 2023 11:00 AM VA-TOBACCO QUIT 15 YRS OR MORE [facility] Nov 27, 2018 01:03 PM VA-TOBACCO FORMER USER [facility] Nov 27, 2018 01:03 PM VA-TOBACCO QUIT 1 TO < 5 YRS [facility] Advance Directives: All historical and current Section Date Range: From patient's date of to the date document was created. This section includes ALL of a patient's completed or amended [place] Advance and Rescinded Directives. The entries below indicate that a directive exists for the patient, but an actual copy is not included with this document. The data comes from all [place] facilities. Date Advance Directives Provider Source Dec 31, 2023 ADVANCE DIRECTIVE DISCUSSION [facility] Encounter Notes: All associated encounter notes This section contains the clinical notes associated to the Encounter. Date/Time Encounter Note(s) Provider Source Dec 10, 2023 11:53 AM CARDIOLOGY CONSULT : [facility] TITLE: CONSULT/CARDIOLOGY STANDARD TITLE: CARDIOLOGY CONSULT DATE OF NOTE: DEC 10, 2023@11:53 ENTRY DATE: DEC 10, 2023@11:53:34 AUTHOR: ANTONI SANFORD COSIGNER: URGENCY: STATUS: COMPLETED CONSULT/CARDIOLOGY Has ADDENDA CARDIOLOGY CONSULTATION: Subjective: 63 year old referred here for cardiac test before planned shoulder surgery. The patient is scheduled to have shoulder surgery at the end of this month. He was initially referred here for cardiac testing prior to the surgery. However, the patient was admitted to [facility] in October 2023 [last month] because of atypical chest pain. During that admission, he underwent cardiac catheterization which showed nonobstructive coronary artery disease. Recommendations were made to continue him on aspirin 81 mg p.o. daily and for risk factor modification. The report from his cardiac catheterization dated November 24, 2023 showed that the arterial pressure was 130/70. The LVEDP was 15 mmHg with no gradient across aortic valve. The left main had no significant disease. The LAD has no significant disease. The circumflex coronary artery had a 50% stenosis. The right coronary artery had 60% stenosis at the ostium of the PDA. The patient underwent IFR measurements which was found to be normal. As mentioned above, medical management was recommended. The patient has hypertension, hyperlipidemia and the atrial fibrillation for which she had multiple attempts at ablation and he is anticoagulated with Eliquis. He is also on diltiazem for heart rate control. Patient denies any cardiac symptoms. He has no chest pain. He has no dyspnea, orthopnea, PND or leg edema. He has occasional palpitations but no dizziness or loss of consciousness. The patient also has history of HIV, chronic kidney disease. Allergies: ATORVASTATIN, PRAVASTATIN Problem List: PLL - All Problems [address] PROBLEM LAST MOD PROVIDER A Chronic cough 05/09/2022 OSWALDO EGAN Dysphagia 10/01/2021 LEONA HOBBS Shoulder pain 08/21/2021 LEONA HOBBS Pain of joint of knee 08/21/2021 LEONA HOBBS Primary subtalar osteoarthritis 03/01/2019 LIVE SORIANO H/O: surgery 10/15/2018 SRINI MAGALLANES 1. Left hip fracture 1982, fall, in traction for month 2. Eligio in left upper femur, 2011 following fracture 3. Lumbar fusion, 1998 4. Ablation 01/13 for atrial fib A Osteoporosis 10/15/2018 SRINI MAGALLANES 1. 10/05/18 DEXA right forearm T-2.1, right hip -0.2 2. Will continue to monitor, repeat DEXA in 3 years 3. Quit smoking 1999, left hip fx felt to be secondary to trauma 4. Minimal etoh 5. Normal Vit D on replacement A Social history baseline finding 10/15/2018 SRINI MAGALLANES 1. 2. 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 [employer] 80-[employer], no combat 4. Quit smoking 1999 5. Minimal etoh A Family social history 10/15/2018 SRINI MAGALLANES 1. Father had NC, smoker, in 50's 2. Brother with CVA at age 60 3. 1/2 brother with NC A Chronic kidney disease stage 3 04/27/2019 SRINI MAGALLANES Avoids NSAIDS A TEST RESULTS 10/15/2018 SRINI MAGALLANES 1. 09/13 colonoscopy normal, repeat 2 years per GI note 2. 10/05/18 bone density, right hip normal, will continue to follow A Diverticulitis 09/24/2018 ANNA SEYMOUR 09/08/18 Flex sig, biopsy--benign tissue, repeat 2 yr 06/25/18 colonoscopy, bx pending A Panic attack 10/17/2017 DEBI CUENCA A Thrombocytopenia 09/30/2017 DEBI CUENCA A HIV - Human immunodeficiency virus infection 09/30/2017 DEBI CUENCA A Chronic low back pain 09/30/2017 DEBI CUENCA A Spinal stenosis of lumbar region 09/30/2017 DEBI CUENCA A Vitamin D deficiency 07/30/2017 DEBI CUENCA A Tinnitus 07/28/2017 JM CHU A Osteoarthritis of knee 07/28/2017 JM CHU A Arthralgia of the ankle and/or foot 04/27/2019 SRINI MAGALLANES A Obesity 05/01/2017 HERIBERTO JORDAN A Sensorineural hearing loss, bilateral 04/23/2017 MIKE HARGROVE Neck pain 05/16/2016 MARY SAMUEL A Obstructive sleep apnea syndrome 04/29/2016 NIKI WHITEHEAD Split night 04/23/16: AHI 11.8/hr, 82% low sat; 5-14cwp A Atrial fibrillation 10/15/2018 DEBI CUENCA S/P ablation 12/25/2017 Followed by [facility] A Hyperlipidemia 05/09/2015 SHERRIEFRA A Gastroesophageal reflux disease 05/09/2015 EFRA POLANCO A Benign essential hypertension 05/09/2015 EFRA POLANCO I Hearing loss, Resolved 05/01/2017 05/01/2017 JM CHU I Ankle pain, Resolved 05/01/2017 05/01/2017 EFRA POLANCO I Elevated blood pressure, Resolved 05/01/2017 05/01/2017 MIKE CABEZAS I Syncope, Resolved 05/01/2017 05/01/2017 MIKE CABEZAS I Palpitations, Resolved 05/01/2017 05/01/2017 MIKE CABEZAS Medication List: Active Outpatient Medications (including Supplies): Active Outpatient [...] SA CAP TAKE ONE CAPSULE BY ACTIVE (S) MOUTH DAILY FOR DEPRESSION WITH FOOD - MOOD Active Non-VA Medications Status 1) Non-VA ACETAMINOPHEN 500MG TAB 1000MG MOUTH THREE ACTIVE TIMES A DAY NEEDED 2) Non-VA ASPIRIN 81MG EC TAB 81MG MOUTH EVERY DAY ACTIVE 10 Total Medications Physical Exam: Vital Signs: Date Vital Measurement Qualifiers 12/10/2023 11:46 BP 137/100 12/10/2023 11:45 Temp F (C) 97.8 (36.6) Pulse 76 Respir 16 Wt lbs (kg)[BMI] 274 (124.28)[34*] POx (L/Min)(%) 94 Neck: No JVD, no carotid bruits. Chest: No rales or wheezes. Heart: S1, S2. Abdomen: Positive bowel sounds Legs: No edema. Assessment & Plan: 63-year-old with above medical [...] consultation in the perioperative is strongly recommended. Disposition: Medications as per doctor's prescriptions., Given special care instructions., Verbalizes understanding and intent to comply with instructions given. Patient's tests reviewed. ALso, reviewing separately obtained history, performing medical examination, counseling and educating the patient, ordering medications and tests, communicating with other healthcare professionals, documenting clinical information in the electronic health record and communicating test results to the patient. /danny SANFORD Lot Porter Signed: 12/10/2023 12:09 12/10/2023 ADDENDUM STATUS: COMPLETED ADDENDUM: EKG: NSR @70 bpm. LVH. /danny SANFORD Lot Porter Signed: 12/10/2023 12:41 [facility] 10, [facility] 11:41 AM INTERNAL MEDICINE NOTE: LOCAL TITLE: MEDICINE/CARDIOLOGY STANDARD TITLE: INTERNAL MEDICINE NOTE DATE OF NOTE: DEC 10, 2023@11:41 ENTRY DATE: DEC 10, 2023@11:41:50 AUTHOR: ROHIT PATTERSON COSIGNER: URGENCY: STATUS: COMPLETED MEDICINE/CARDIOLOGY Has ADDENDA TWO OR MORE PATIENT IDENTIFIERS REQUIRED FULL NAME Date O. is here for preop eval Has afib and c/o blood pressure has been high P. To see provider EKG obtained per MD order RACHELLE-PT AT RISK INCAPACITATED SCREEN: 1) Does the patient meet any of the criteria for being considered incapacitated? [ NO ] Tobacco Use Screening: The patient is a former tobacco user. The patient quit fifteen or more years ago. Alcohol Use Screen (AUDIT-C): Alcohol Screen: SCREEN FOR ALCOHOL (AUDIT-C) An alcohol screening test (AUDIT-C) was negative (score=4). 1. How often did you have a drink containing alcohol in the past year? Consider a drink to be a 12 ounce can or bottle of regular beer, 8 ounces of malt liquor, a 5 ounce glass of table wine, or a 1.5 ounce shot of liquor (like scotch, gin, or vodka). Four or more times a week 2. How many drinks containing alcohol did you have on a typical day when you were drinking in the past year? One or two drinks 3. How often did you have six or more drinks on one occasion in the past year? Never RACHELLE-TIME IS LIFE EDUCATION: Shared and reviewed patient education handout covering the signs and symptoms of a heart attack, getting to the hospital as quickly as possible, and having a survival plan. Patient had level of understanding at this encounter. Level of Understanding: Good /craig/ Rohit Patterson LPN LPN Signed: 12/10/2023 11:45 12/10/2023 ADDENDUM STATUS: COMPLETED RACHELLE-BLOOD PRESSURE >140/90: BP: 146/99 (12/10/2023 11:45) Did you take your Blood Pressure Medication today? YES, Patient did take prescribed Blood Pressure Medication/s today. Have you consumed any caffeine within the last 30 minutes? YES Have you used any nicotine and/or nicotine products within the last 30 minutes? NO Blood Pressure rechecked: 137/100 /craig/ Rohit Patterson LPN LPN Signed: 12/10/2023 11:46 ROHIT PATTERSON
--- OUTSIDE RECORDS SUMMARY | 2024-06-02 06:04 | XMS_ITS | Encounter Summary ---
Author Name [facility] [place] Organization [facility] [place] Address [address] [place] [address] Care Team Providers Care Rn Cardiovascular Icu Name Role Phone FARIBA CHEUNG Primary Care Provider Unavailabl e Selected Encounter This section includes the information on record at [place] for the Encounter. Date/Time Encounter Type Encounter Description Reason Provider Source Mar 02, 2024 12:05 PM Outpatient Encounter GENERAL INTERNAL MEDICINE VANITA ESCAMILLA E Encounter Template Text not used by [place] Plan of Treatment: Future Appointments (+ 6 months) and Future Tests (+/- 45 days) The Plan of Treatment section includes future care activities for the patient from all [place] treatmentfacilities. This section includes future appointments and future orders which are active, pending or scheduled. Future Appointments This section includes appointments that were scheduled to occur 6 months from the date of the Encounter, up to a maximum of 20 appointments. The data comes from all [place] treatment facilities. Appointment Date/Time Appointment Type Appointme nt Facility Name Mar 30, 2024 01:50 PM AMBULATORY - NONE [facility] Apr 14, 2024 01:30 PM AMBULATORY - NONE [facility] May 11, 2024 01:30 PM AMBULATORY - NONE [facility] May 27, 2024 02:00 PM AMBULATORY - MEDICINE [facility] May 27, 2024 02:40 PM AMBULATORY - NONE [facility] Lab Results: +/- 30 days of the encounter This section includes the Chemistry and Hematology Lab Results on record with [place] for the patient. Radiology Reports and Pathology Reports are provided separately, in subsequent sections. Lab Results This section contains the Chemistry/Hematology Results that were resulted 30 days before or 30 daysafter the date of the Encounter. Date/Time Source Result Type Result - Unit Interpretation Reference Range Comment Mar 30, 2024 01:37 PM [facility] HIV PCR QUANT (PANEL) Specimen Type: PLASMA [...] Mar 12, 2024 08:39 AM Reporting Lab: [facility] [address] [facility] [address] Performing Lab: [facility] [address] [place] [phone] HIV PCR QUANT(copies/mL ) <20 {copies}/mL 0-19 HIV PCR (log) <1.30 0.00-1.29 Mar 30, 2024 01:37 PM [facility] LYMPH SUBSET PANEL 4 ([id number])-[facility] Specimen Type: BLOOD Comment: INTERPRETIVE INFORMATION: Lymphocyte Subset 4, Pct. and Ratio, WB The CD4 cells are [place] T-cells expressing both CD3 and CD4. The [...] developed and its performance characteristics determined by [facility]. It has not been cleared or approved by the [place] Food and Drug Administration. This test was performed in a CLIA certified laboratory and is intended for clinical purposes. Performed By: [facility] [address] [place] [address] Manager Transportation: Sabino Diaz MD, PhD CLIA Number: [id number] Ordering Provider: OSWALDO EGAN Report Released Date/Time: Mar 12, 2024 08:39 AM Reporting Lab: [address] [address] Performing Lab: [facility] [address] [address] ABSOLUTE CD 3 1191 {cells}/uL 570-2400 ABSOLUTE CD 4 HELPER 634 {cells}/uL 430-1800 ABSOLUTE CD 8 SUPPRESSOR 557 {cells}/uL 210-1200 % CD 3 POS. LYMPH 84 62-87 % CD 4 POS. LYMPH 45 32-64 % CD 8 POS. LYMPH 39 15-46 CD4/CD8 RATIO 1.15 {ratio} 0.80-3.90 LYMPH SUBSET PANEL 4 INFO See Note Mar 30, 2024 01:37 PM [facility] PHOS Specimen Type: PLASMA Comment: Low-risk levels [...] Mar 12, 2024 08:39 AM Reporting Lab: [address] [address] Performing Lab: [address] [address] PHOS 2.9 mg/dL 2.4-5.1 Mar 30, 2024 01:37 PM [facility] LIPID PNL Specimen Type: PLASMA Comment: Low-risk [...] Mar 12, 2024 08:39 AM Reporting Lab: [address] [address] Performing Lab: [address] [address] DIR. HDL 53 mg/dL L >=60 TRIGLYCERIDES 177 mg/dL H See Comment DIR LDL canc CHOL 245 mg/dL H See Comment LDL (CALCULATED) 157 mg/dL H See Comment Mar 30, 2024 01:37 PM [facility] VITAMIN D 25-HYDROXY Specimen Type: SERUM Comment: Deficiency <20, Insufficiency 20-30, Sufficiency 30-100, Toxicity >100 ng/mL Ordering Provider: OSWALDO EGAN Report Released Date/Time: Mar 12, 2024 08:39 AM Reporting Lab: [address] [address] Performing Lab: [address] [address] VITAMIN D 25-HYDROXY 48.30 ng/mL 30-100 Mar 30, 2024 01:37 PM [facility] COMPREHENSIVE PNL Specimen Type: PLASMA Comment: Low-risk [...] Mar 12, 2024 08:39 AM Reporting Lab: [address] [address] Performing Lab: [address] [address] ANION GAP 7 mmol/L 5-15 EGFR 62 [...] H 0.73-1.18 Mar 30, 2024 01:37 PM [facility] CBC W/DIFF Specimen Type: BLOOD No comment entered. Ordering Provider: OSWALDO EGAN Report Released Date/Time: Mar 12, 2024 08:39 AM Reporting Lab: [address] [address] Performing Lab: [address] [address] WBC 6.2 10*3/uL 4.0-11.0 RBC 4.94 10*6/uL [...] 0.0 /100{WBCs} 0.0-0.2 NRBC# <0.01 10*3/uL 0.00-0.01 Advance Directives: All historical and current Section Date Range: From patient's date of to the date document was created. This section includes ALL of a patient's completed or amended [place] Advance and Rescinded Directives. The entries below indicate that a directive exists for the patient, but an actual copy is not included with this document. The data comes from all [place] facilities. Date Advance Directives Provider Source Dec 31, 2023 ADVANCE DIRECTIVE DISCUSSION Martin MONGE [place] [facility] Encounter Notes: All associated encounter notes This section contains the clinical notes associated to the Encounter. Date/Time Encounter Note(s) Provider Source Feb 25, 2024 12:05 PM NONVA NOTE: LOCAL TITLE: [facility] COORD PLAN STANDARD TITLE: NONVA NOTE DATE OF NOTE: FEB 25, 2024@12:05 ENTRY DATE: MAR 02, 2024@12:05:38 AUTHOR: SHYANN ESCAMILLA EXP COSIGNER: URGENCY: STATUS: COMPLETED Emergency Notification Intake Date Presenting to the Facility: Jan Method of Contact: Submitted to Centralized Call Center Notification ID: [id number] [facility] Referral #: [id number] [facility] Hospital Name: Hospital: [facility] Address: City: [place] State: [place] Zip Code: Phone : [facility] Facility Point of Contact: Name: Phone: Chief complaint: Chest pain Primary Diagnosis: Disposition Admitted Route of Admission: Date of Admission: Jan Admitting Diagnosis: chest pain/sob Community Care Provider: Confirm Level of Care: NO LOCAL [facility] PCP ON FILE, AND NO [facility] PCP FOUND FOR ANY LOCATION IN [facility]. ATTEMPTED TO CONTACT PATIENT TO PROVIDE ELIGIBILITY CONTACT INFORMATION- NO ANSWER, LEFT Records r/t this episode of care sent to [facility] for scanning. EXPERT FROM ER DISCHARGE NOTE BELOW Hospital Course: Pt successfully cardioverted the next day ok to dc as per cardiology MD. Pt back to NSR ok to DC. 64 y/o M presents here with shortness of breath and chest pain with PMH of SVT, HTN, and AFib. The patient presents here from home via EMS for further evaluation of chest pain, shortness of breath, diaphoresis, and palpitations. Sudden onset of the symptoms occurred at 10:00 a.m. while he was laying down in bed. Upon EMS arrival he was placed on a sub arc operator which showed SVT. He was administered 4 mg of morphine and a synchronized shock was delivered via EMS and he was restored to normal sinus rhythm. Symptoms resolved with confucianist of NSR. Patient then had a syncopal episode while in imaging, telemetry strip not captured during event. He reports he had stood up for his CXR and was holding the bars, he does not remember the event or having symptoms before. States he had general malaise after episode for about 30 mins and has since resolved. He reports a previous history of SVT which has been treated with cardioversion x3, converted via medications x3, and ablation x3 with last occurrence in November of 2023. Typically receives care at the [place] and follows a [employer] there with most recent appt in late November. Does not currently have scheduled follow-up with his [employer]. Would like to find [facility] care [facility] of [facility] [place]. No previously known hx of DM. Initial VS at presentation: 97.8? F, HR 90, RR 16, 110/80, and 96% on RA. ED workup showed: No leukocytosis, no anemia, normal coags, creatinine 1.8 and GFR 38 (no previous available for comparison), glucose 247, and initial troponin 0.013. CXR showed no acute cardiopulmonary disease. Initial EKG showed sinus rhythm and possible left atrial enlargement and possible left ventricular hypertrophy. Symptomatic SVT resolved with synchronized cardioversion. He remains in sinus rhythm Continue Toprol XL 50mg daily Increase Diltiazem to 360mg daily Magnesium 1.7 and has been repleted Recommend outpatient EP referral for consideration of SVT ablation Patient Disposition: Home, Self-Care Discharge Medications: New diltiazem HCl 180 mg Capsule,Ext.Rel 24h Degradable /es/ SHYANN ESCAMILLA BSN RN REGISTERED NURSE Signed: 03/02/2024 12:16 SHYANN ESCAMILLA [facility]
--- OUTSIDE RECORDS SUMMARY | 2024-06-02 06:04 | XMS_ITS | Encounter Summary ---
Author Name [facility] [place] Address [address] [place] [address] Care Team Providers Care Letterer Name Role Phone JONATAN, FARIBA Primary Care Provider Unavailabl e Selected Encounter This section includes the information on record at [place] for the Encounter. Date/Time Encounter Type Encounter Description Reason Provider Source May 27, 2024 02:00 PM OFFICE O/P EST LOW 20 MIN PRIMARY CARE/MEDICINE ICD-10-CM M25.569 Pain in unspecified knee ANA,CRYSTAL L E Encounter Template Text not used by [place] Assessments - Encounter Diagnoses This section includes the primary and secondary diagnoses documented for the Encounter. Date/Time Primary/Secondary Diagnosis Diagnosis Name Provider Source May 27, 2024 02:28 PM PRIMARY Pain in unspecified knee ANA,CRYSTAL L [facility] May 27, 2024 02:28 PM SECONDARY Encounter for immunization PAGAN,PRISC ILLA [facility] Plan of Treatment: Future Appointments (+ 6 months) and Future Tests (+/- 45 days) The Plan of Treatment section includes future care activities for the patient from all [place] treatmentfacilities. This section includes future appointments and future orders which are active, pending or scheduled. Future Appointments This section includes appointments that were scheduled to occur 6 months from the date of the Encounter, up to a maximum of 20 appointments. The data comes from all [place] treatment facilities. Appointment Date/Time Appointment Type Appointme nt Facility Name Oct 05, 2024 01:00 PM AM[facility]ATORY - [facility] Oct 19, 2024 02:00 PM AMBULATORY - NONE [facility] Active, Pending, and Scheduled Orders This section includes a listing of several types of active, pending, and scheduled orders, including clinic medications orders, diagnostic test orders, procedure orders and consult orders; where the start date of the order is 45 days before the date of the Encounter or 45 days after the date of theEncounter. The data comes from all [place] treatment facilities. Test Date/Time Test Type Test Details Facility Name May 25, 2024 03:39 PM Consult Order COMMUNITY CARE-ORTHO GENERAL Cons [facility] May 25, 2024 03:39 PM Consult Order COMMUNITY CARE-ORTHO GENERAL Cons [facility] Jun 01, 2024 02:42 PM Consult Order [facility] Jun 01, 2024 02:42 PM Consult Order [facility] Lab Results: +/- 30 days of the encounter This section includes the Chemistry and Hematology Lab Results on record with [place] for the patient. Radiology Reports and Pathology Reports are provided separately, in subsequent sections. Lab Results This section contains the Chemistry/Hematology Results that were resulted 30 days before or 30 daysafter the date of the Encounter. Date/Time Source Result Type Result - Unit Interpretation Reference Range Comment May 27, 2024 02:24 PM [facility] PTH INTCT Specimen Type: PLASMA No comment entered. Ordering Provider: Crystal UP Report Released Date/Time: May 11, 2024 04:06 PM Reporting Lab: [facility] [address] [facility] [address] Performing Lab: [facility] [address] [place] [id number] PTH INTCT 83.4 pg/mL H 18.4-80.1 May 27, 2024 02:24 PM [facility] VITAMIN D 25-HYDROXY Specimen Type: SERUM Comment: Deficiency <20, Insufficiency 20-30, Sufficiency 30-100, Toxicity >100 ng/mL Ordering Provider: FARIBA CHEUNG Report Released Date/Time: Apr 23, 2024 08:34 AM Reporting Lab: [facility] [address] [facility] [address] Performing Lab: [facility] [address] [facility] [address] VITAMIN D 25-HYDROXY 51.70 ng/mL 30-100 May 27, 2024 02:24 PM [facility] URINE ALBUMIN/CREAT (RAND URINE) Specimen Type: URINE No comment entered. Ordering Provider: Crystal UP Report Released Date/Time: May 11, 2024 04:06 PM Reporting Lab: [address] [address] Performing Lab: [address] [address] URINE ALBUMIN(RAND URINE) 1.5 mg/dL <2.0 CREAT(RNDM URINE) 210.70 mg/dL 40-278 CREAT RATIO (RNDM URINE) 7 mg/g <30 May 27, 2024 02:24 PM [facility] COMPREHENSIVE PNL Specimen Type: PLASMA Comment: eGFR was calculated using the CKD-EPI Creatinine (2020) equation. Ordering Provider: AFRIBA CHEUNG Report Released Date/Time: Apr 23, 2024 08:34 AM Reporting Lab: [address] [address] Performing Lab: [address] [address] ANION GAP 12 mmol/L 5-15 EGFR 75 [...] Height Weight Body Mass Index Source May 27, 2024 02:10 PM 134/91 [facility] May 27, 2024 01:49 PM 97.7 103 152/92 22 94 7 264.4 33 [facility] Immunizations: All administered on the encounter date This section contains immunizations associated to the Encounter. Immunization Series Date Issued Reaction Comments INFLUENZA, SPLIT VIRUS, TRIVALENT, PF May 27 025 TDAP May 27, 2024 Social History: Smoking Status (Most current) and Tobacco Use (All prior to encounter date) This section includes the most current, and the historical, smoking and tobacco- related health factors from the [place] facility where the Encounter took place. Current Smoking Status This section includes the most current smoking, or tobacco-related health factor, from the [place] facility where the Encounter took place. Date/Time Current Smoking Status Comment [facility] Aug 13, 2022 01:30 PM VA-TOBACCO FORMER USER [facility] Tobacco Use History This section includes a history of the smoking, or tobacco-related health factors, that were collected on or before the date of the Encounter. The data comes from the [place] facility where the Encounter took place. Date/Time Smoking Status/Tobac co Use Comment Facility Aug 13, 2022 01:30 PM VA-TOBACCO QUIT 5 TO < 15 YRS [facility] Apr 03, 2021 01:30 PM VA-TOBACCO FORMER USER [facility] Apr 03, 2021 01:30 PM VA-TOBACCO QUIT 5 TO < 15 YRS [facility] Jan 18, 2020 11:00 AM VA-TOBACCO FORMER USER [facility] Jan 18, 2020 11:00 AM VA-TOBACCO QUIT 5 TO < 15 YRS [facility] Jan 23, 2018 08:39 AM VA-TOBACCO FORMER USER [facility] Jan 23, 2018 08:39 AM VA-TOBACCO QUIT 5 TO < 15 YRS [facility] May 01, 2017 01:39 PM QUIT TOBACCO >7 YEARS AGO 10YEARS AGO [facility] May 01, 2017 01:39 PM TOBACCO CESSATION MEDS REFUSED STOP 10YEARS AGO [facility] May 01, 2017 01:39 PM TOBACCO CESSATION REFERRAL REFUSED [facility] May 01, 2017 01:39 PM TOBACCO OFFERRED STOP SMOKING CLINIC [facility] Mar 18, 2016 02:02 PM QUIT TOBACCO >7 YEARS AGO [facility] Mar 18, 2016 02:02 PM TOBACCO CESSATION MEDS REFUSED STOPPED 8YRS AGO [facility] Mar 18, 2016 02:02 PM TOBACCO CESSATION REFERRAL REFUSED [facility] Mar 18, 2016 02:02 PM TOBACCO OFFERRED STOP SMOKING CLINIC [facility] Dec 16, 2013 08:31 AM LIFETIME NON-USER OF TOBACCO [facility] Advance Directives: All historical and current Section Date Range: From patient's date of to the date document was created. This section includes ALL of a patient's completed or amended [place] Advance and Rescinded Directives. The entries below indicate that a directive exists for the patient, but an actual copy is not included with this document. The data comes from all [place] facilities. Date Advance Directives Provider Source Dec 31, 2023 ADVANCE DIRECTIVE DISCUSSION Martin MONGE [facility] Encounter Notes: All associated encounter notes This section contains the clinical notes associated to the Encounter. Date/Time Encounter Note(s) Provider Source May 27, 2024 02:28 PM PHYSICIAN NOTE: LOCAL TITLE: PROVIDER/MEDICATION RECONCILIATION STANDARD TITLE: PHYSICIAN NOTE DATE OF NOTE: MAY 27, 2024@14:28 ENTRY DATE: MAY 27, 2024@14:29:04 AUTHOR: DELLA PEREZ COSIGNER: URGENCY: STATUS: COMPLETED DEPARTMENT OF [facility] [address] [place], [place] [address] LALI SUTHERLAND MAY 27, [address] [place], [place] [address] The following medication list was reviewed with the patient/caregiver: MRT5 - Allergies/ADRs FACILITY ALLERGY/ADR -------- [facility] ATORVASTATIN [facility] PRAVASTATIN LALY RODRIGUEZ [facility] ATORVASTATIN MRR1 - Med Reconciliation INCLUDED IN THIS LIST: Alphabetical list of active outpatient prescriptions dispensed from this [place] (local) and dispensed from another [place] or [facility] facility (remote) as well as inpatient orders (local pending and active), local clinic medications, locally documented non-VA medications, and local prescriptions that have or been discontinued in the past 90 days. Non-VA Meds Last Documented On: Jan 23, 2018 NOTE The display of VA prescriptions dispensed from another [place] or [facility] facility (remote) is limited to active outpatient prescription entries matched to National Drug File at the originating site and may not include some items such as investigational drugs, compounds, etc. NOT INCLUDED IN THIS LIST: Medications self-entered by the patient into personal health records (i.e. [employer]) are NOT included in this list. Non-VA medications documented outside this [place], remote inpatient orders (regardless of status) and [...] TABLET BY MOUTH TWICE A DAY Rx# [id number] Last Released: 01/01/24 Qty/Days Supply: 180/90 Rx Expiration Date: 04/20/24 Refills Remainin OUTPT APIXABAN 5MG TAB (Status = Active) TAKE ONE TABLET BY MOUTH TWICE A DAY Rx# [id number] Last Released: 03/29/24 Qty/Days Supply: 180/90 Rx Expiration Date: 03/13/25 Refills Remainin Non-VA ASPIRIN 81MG EC TAB TAKE ONE TABLET BY MOUTH EVERY DAY Patient wants to buy from non-VA pharmacy OUTPT ASPIRIN 81MG EC TAB (Status = Active) TAKE ONE TABLET BY MOUTH EVERY DAY Rx# [id number] Last Released: 04/26/24 Qty/Days Supply: 120/90 Rx Expiration Date: 04/22/25 Refills Remainin Indication: TO PREVENT A STROKE OR HEART ATTACK OUTPT ATORVASTATIN CALCIUM 80MG TAB (Status = Active) TAKE ONE TABLET BY MOUTH AT BEDTIME CALL YOUR PROVIDER IF YOU HAVE MUSCLE PAIN, TENDERNESS OR WEAKNESS Rx# [id number] Last Released: 04/26/24 Qty/Days Supply: Rx Expiration Date: 04/22/25 Refills Remainin Indication: FOR CHOLESTEROL OUTPT BIC 50/EMT 200/TEN 25 (EQV-BIKTARVY) TAB (Status = Active) TAKE 1 TABLET BY MOUTH EVERY DAY FOR INFECTION DO NOT MIX WITH MINERALS/MVI FOR ADEQUATE ABSORPTION. Rx# [id number] Last Released: 05/24/24 Qty/Days Supply: Rx Expiration Date: 02/25/25 Refills Remainin OUTPT BUSPIRONE HCL 5MG TAB (Status = Active) TAKE ONE TABLET BY MOUTH TWICE A DAY FOR ANXIETY Rx# [id number] Last Released: 12/30/23 Qty/Days Supply: Rx Expiration Date: 09/12/24 Refills Remainin Indication: FOR ANXIETY OUTPT CALCITRIOL 0.25MCG CAP (Status = Active) TAKE ONE CAPSULE BY MOUTH DAILY Rx# [id number] Last Released: 04/26/24 Qty/Days Supply: Rx Expiration Date: 04/22/25 Refills Remainin Indication: FOR BONES OUTPT DICLOFENAC NA 1% TOP GEL (Status = Pending) APPLY 4 GRAMS TOPICALLY FOUR TIMES A DAY -DON'T EXCEED 16 GRAMS DAILY TO ANY AFFECTED LEG AREA. DON'T EXCEED 8 GRAMS DAILY TO ANY AFFECTED ARM AREA. DON'T EXCEED A TOTAL DOSE OF 32 GRAMS DAILY OVER ALL AREAS. *USE DOSING CARD TO MEASURE DOSE.* EXPEDITE Login Date: 05/27/24 Qty/Days Supply: Refills Ordered: 5 OUTPT DILTIAZEM (EQV-TIAZAC AB4) 240MG 24HR CP (Status = ) TAKE ONE CAPSULE BY MOUTH EVERY DAY FOR BLOOD PRESSURE/HEART Rx# [id number] Last Released: 08/30/23 Qty/Days Supply: Rx Expiration Date: 05/15/24 Refills Remainin OUTPT ERGOCALCIF 1,250MCG (D2-50,000UNIT) CAP (Status = Discontinued) TAKE ONE CAPSULE BY MOUTH ONCE WEEKLY ON FRIDAY FOR VITAMIN D- SUPPLEMENT Rx# [id number] Last Released: 03/03/24 Qty/Days Supply: Rx Expiration Date: 12/26/24 Refills Remainin OUTPT FOLIC ACID 1MG TAB (Status = Active) TAKE ONE TABLET BY MOUTH DAILY Rx# [id number] Last Released: 04/26/24 Qty/Days Supply: Rx Expiration Date: 04/22/25 Refills Remainin Indication: FOR ANEMIA OUTPT METOPROLOL SUCCINATE 50MG SA TAB (Status = Active) TAKE ONE TABLET BY MOUTH NIGHTLY FOR BLOOD PRESSURE Rx# [id number] Last Released: 03/03/24 Qty/Days Supply: Rx Expiration Date: 12/18/24 Refills Remainin Indication: FOR BLOOD PRESSURE OUTPT MULTIVITAMIN/MINERALS THERAPEUT CAP/TAB (Status = Active) TAKE 1 CAP/TAB BY MOUTH DAILY Rx# [id number] Last Released: 04/26/24 Qty/Days Supply: Rx Expiration Date: 04/22/25 Refills Remainin Indication: FOR LACK IN VITAMINS OUTPT PANTOPRAZOLE NA 40MG EC TAB (Status = Active) TAKE ONE TABLET BY MOUTH EVERY DAY Rx# [id number] Last Released: 05/11/24 Qty/Days Supply: Rx Expiration Date: 12/18/24 Refills Remainin OUTPT POTASSIUM CL 20MEQ SA TAB (DISPERSIBLE) (Status = ) TAKE ONE TABLET BY MOUTH DAILY FOR POTASSIUM SUPPLEMENT Rx# [id number] Last Released: 03/03/24 Qty/Days Supply: Rx Expiration Date: 05/08/24 Refills Remainin OUTPT ROSUVASTATIN CA 20MG TAB (Status = Discontinued) TAKE ONE TABLET BY MOUTH EVERY DAY CALL YOUR PROVIDER IF YOU HAVE MUSCLE PAIN, TENDERNESS OR WEAKNESS Rx# [id number] Last Released: 03/22/24 Qty/Days Supply: Rx Expiration Date: 03/19/25 Refills Remainin OUTPT TAMSULOSIN HCL 0.4MG CAP (Status = Active) TAKE ONE CAPSULE BY MOUTH EVERY EVENING TAKE 30 MINUTES AFTER A MEAL Rx# [id number] Last Released: 05/12/24 Qty/Days Supply: Rx Expiration Date: 10/01/24 Refills Remainin Indication: FOR PROSTATE OUTPT THIAMINE 100MG TAB (Status = Active) TAKE ONE TABLET BY MOUTH DAILY Rx# [id number] Last Released: 04/26/24 Qty/Days Supply: 100/90 Rx Expiration Date: 04/22/25 Refills Remainin Indication: FOR VITAMIN SUPPLEMENT OUTPT VENLAFAXINE HCL 150MG 24HR SA CAP (Status = Active/Suspended) TAKE ONE CAPSULE BY MOUTH DAILY FOR DEPRESSION WITH FOOD - MOOD Rx# [id number] Last Released: 03/11/24 Qty/Days Supply: Rx Expiration Date: 12/26/24 Refills Remainin Indication: FOR DEPRESSION SUPPLIES Potential risks, benefits, and alternative to medications prescribed were discussed with [place]/caregiver who was given an opportunity to ask questions, which were answered to the best of my ability and seemingly to their satisfaction. /caregiver was/were instructed to contact provider (means provided) with any concerns or questions. A list of reconciled medications was provided to the [place]/caregiver. /craig/ DELLA PEREZ Physician Prize Coordinator Date printed: MAY 27, 2024 14:32 [facility] DELLA JANSEN [facility] May 27, 2024 01:54 PM NURSING NOTE: LOCAL TITLE: RACHELLE/PREVMED STANDARD TITLE: NURSING NOTE DATE OF NOTE: MAY 27, 2024@13:54 ENTRY DATE: MAY 27, 2024@13:54:11 AUTHOR: INGRID PAGAN COSIGNER: URGENCY: STATUS: COMPLETED TWO OR MORE PATIENT IDENTIFIERS REQUIRED FULL NAME SS NUMBER Date here for left knee pain swollen and painful. Patient reports a pain level of 7. Patient considers a pain level of 4 acceptable. Pain was rated using a numerical scale from 1-10. The provider/attending has been notified of patient's pain level. Pain location: left knee Patient describes pain as ache, stabbing, throbbing. Patient reports pain is constant. Approximate date of onset: 10 years Patient reports factors that alleviate pain are cold pack to area for 20-30 min. Aggravating factors: slipped on ice, weather, walking Stress: reports nothing in the last 6 months that has caused worry or stress. Sexual Orientation: The patient thinks of their sexual orientation as: Straight or Heterosexual Bisexual Td/Tdap Immunization: Administered: TDAP Date Administered: May 27, 2024 14:00 Series: Complete Rib Bender: [employer] Lot: [id number] Exp Date: Mar 13, 2026 NDC: [id number] Admin Route/Site: INTRAMUSCULAR/RIGHT DELTOID Dosage: 0.5mL Vaccine Information Statement(s): TDAP (TETANUS, DIPHTHERIA, PERTUSSIS) VACCINE VIS Dec 01, 2020 ([place]) Order By: Policy Administered By: Ingrid Pagan The TETANUS/DIPHTHERIA/PERTUSS IS (TDAP) Vaccine Information Statement (VIS) was reviewed with the patient/caregiver which lists the benefits and risks of the vaccine and the risks of not receiving the Tdap vaccine. The patient/caregiver denied any prior severe reaction to this vaccine or its components or a severe allergic reaction, such as anaphylaxis, to any vaccine or any injectable therapy. The patient/caregiver gave verbal consent to receive the vaccine. Influenza Immunization: Influenza, Trivalent, Preservative Free (Fluarix-Syringe) Administered: INFLUENZA, SPLIT VIRUS, TRIVALENT, PF Date Administered: May 27, 2024 14:00 Series: Complete Rib Bender: [employer] Lot: [id number] Exp Date: Oct 25, 2024 NDC: [id number] Admin Route/Site: INTRAMUSCULAR/LEFT DELTOID Dosage: 0.5mL Vaccine Information Statement(s): INFLUENZA(FLU) VACC(INACTIVATED OR RECOMBINANT)VIS Dec 01, 2020 ([place]) Order By: Policy Administered By: Ingrid Pagan The Influenza Vaccine Information Statement (VIS) was reviewed with the patient/caregiver which lists the benefits and risks of the vaccine and the risks of not receiving the Influenza vaccine. The patient/caregiver denied any prior severe reaction to this vaccine or its components or a severe allergic reaction, such as anaphylaxis, to any vaccine or any injectable therapy. The patient/caregiver gave verbal consent to receive the vaccine. RACHELLE-BLOOD PRESSURE >140/90: BP: 152/92 (05/27/2024 13:49) Did you take your Blood Pressure Medication today? YES, Patient did take prescribed Blood Pressure Medication/s today. Have you consumed any caffeine within the last 30 minutes? YES Have you used any nicotine and/or nicotine products within the last 30 minutes? NO Blood Pressure rechecked: 134/91 /craig/ INGRID PAGAN LPN Signed: 05/27/2024 14:10 INGRID PAGAN [facility] May 27, 2024 01:52 PM PRIMARY CARE NOTE: LOCAL TITLE: [place] STANDARD TITLE: PRIMARY CARE NOTE DATE OF NOTE: MAY 27, 2024@13:52 ENTRY DATE: MAY 27, 2024@13:52:42 AUTHOR: DELLA PEREZ COSIGNER: URGENCY: STATUS: COMPLETED HPI: 64 MALE is here for knee pain. Knee pain: He hit his knee into the side of his car when he slipped on ice a week ago. He was seen in the UC and reports xray was unremarkable except for some arthritis. He notes pain and swelling. Using tramadol from the UC visit. Ortho referral has been placed. He cannot take anti-inflammatories d/t anticoagulation. He has been applying ice. Using tylenol. Still having some pain anteriorly with swelling. +crepitus. He is ambulating w/o assistance. Denies further falls. == ROS: GENERAL: Patient denies fever, chills, weight loss CARDIOVASCULAR: Patient denies chest pain, palpitations, edema MUSCULOSKELETAL: Positive knee pain and swelling SKIN: Patient denies rashes, pruritus, or wounds NEUROLOGY: Patient denies numbness/tingling/weakness of extremities PSYCH: Patient denies recent changes in mood or sleep issues == PMHx includes but is not limited to: Active problems - Computerized Problem List is the source for the following: PROBLEM 1. Long-term current use of anticoagulant 2. Chronic cough 3. Dysphagia 4. Shoulder pain 5. Pain of joint of knee 6. Primary subtalar osteoarthritis 7. H/O: surgery 8. Osteoporosis 9. Social history baseline finding 10. Family social history 11. Chronic kidney disease stage 3 12. TEST RESULTS 13. Diverticulitis 14. Panic attack 15. Thrombocytopenia ([facility] [id number]) 16. HIV - Human Immunodeficiency Virus Infection ([facility] [id number]) 17. Chronic Low Back Pain ([facility] [id number]) 18. Spinal Stenosis of Lumbar Region ([facility] [id number]) 19. Vitamin D deficiency 20. Tinnitus 21. Osteoarthritis of knee 22. Arthralgia of the ankle and/or foot 23. Obesity 24. Sensorineural hearing loss, bilateral 25. Cervicalgia 26. Obstructive sleep apnea syndrome 27. Atrial fibrillation 28. Hyperlipidemia 29. Gastroesophageal reflux disease 30. Benign essential hypertension == ALLERGIES: ATORVASTATIN, PRAVASTATIN MEDS: Active Outpatient Medications (including Supplies): Active Outpatient Medications Status 1) APIXABAN 5MG TAB TAKE ONE TABLET BY MOUTH TWICE A DAY ACTIVE 2) ASPIRIN 81MG EC TAB TAKE ONE TABLET BY MOUTH EVERY DAY ACTIVE Indication: TO PREVENT A STROKE OR HEART ATTACK 3) ATORVASTATIN CALCIUM 80MG TAB TAKE ONE TABLET BY MOUTH AT ACTIVE BEDTIME CALL YOUR PROVIDER IF YOU HAVE MUSCLE PAIN, TENDERNESS OR WEAKNESS Indication: FOR CHOLESTEROL 4) BIC 50/EMT 200/TEN 25 (EQV-BIKTARVY) TAB TAKE 1 TABLET BY ACTIVE MOUTH EVERY DAY FOR INFECTION DO NOT MIX WITH MINERALS/MVI FOR ADEQUATE ABSORPTION. 5) BUSPIRONE HCL 5MG TAB TAKE ONE TABLET BY MOUTH TWICE A DAY ACTIVE Indication: FOR ANXIETY 6) CALCITRIOL 0.25MCG CAP TAKE ONE CAPSULE BY MOUTH DAILY ACTIVE Indication: FOR BONES 7) FOLIC ACID 1MG TAB TAKE ONE TABLET BY MOUTH DAILY ACTIVE Indication: FOR ANEMIA 8) METOPROLOL SUCCINATE 50MG SA TAB TAKE ONE TABLET BY MOUTH ACTIVE (S) NIGHTLY Indication: FOR BLOOD PRESSURE 9) MULTIVITAMIN/MINERALS THERAPEUT CAP/TAB TAKE 1 CAP/TAB BY ACTIVE MOUTH DAILY Indication: FOR LACK IN VITAMINS 10) PANTOPRAZOLE NA 40MG EC TAB TAKE ONE TABLET BY MOUTH EVERY ACTIVE DAY 11) TAMSULOSIN HCL 0.4MG CAP TAKE ONE CAPSULE BY MOUTH EVERY ACTIVE EVENING TAKE 30 MINUTES AFTER A MEAL Indication: FOR PROSTATE 12) THIAMINE 100MG TAB TAKE ONE TABLET BY MOUTH DAILY ACTIVE Indication: FOR VITAMIN SUPPLEMENT 13) VENLAFAXINE HCL 150MG 24HR SA CAP TAKE ONE CAPSULE BY MOUTH ACTIVE (S) DAILY WITH FOOD - MOOD Indication: FOR DEPRESSION Active Non-VA Medications Status 1) Non-VA ACETAMINOPHEN 500MG TAB 1000MG MOUTH THREE TIMES A ACTIVE DAY NEEDED 2) Non-VA ASPIRIN 81MG EC TAB 81MG MOUTH EVERY DAY ACTIVE 15 Total Medications == VITAL SIGNS: Temperature: 97.7 F [36.5 C] (05/27/2024 13:49) Pulse: 103 (05/27/2024 13:49) Respirations: 22 (05/27/2024 13:49) BP: 134/91 (05/27/2024 14:10) Weight: 264.4 lb [119.93 kg] (05/27/2024 13:49) Height: 75 in [190.5 cm] (05/11/2024 14:19) BMI: 33.1 (MAY 27, 2024@13:49:34) == EXAM: Gen: NAD, VSS, afebrile, well-nourished and groomed, overweight HEENT: Non icteric sclera, EOMI, MMM Neck: Supple CV: Irregularly irregular rhythm, S1/2, No M/R/G Pulm: CTAB, No wheezing or crackles, Normal inspiratory effort on RA Extremities: No C/C/E. Pedal pulses intact bilat. Gait antalgic, unassisted. Left Knee with TTP anteriorly. MIld edema. PROM intact with mild pain. Moderate crepitus. LE strength 5/5 bilat. Neuro: AAO x3, speech clear, moves all extremities Psych: good mood and affect, == Assessment/Plan: 1. Knee pain: Pending orthopedics appointment. Will send in diclofenac gel to apply. Continue with ice. Discussed physical therapy as an option. Follow up as needed. 2. Vaccine status: TDAP and flu vaccine in office == I spent 22 minutes amount of time the day of this clinic visit preparing to see the patient, obtaining and/or reviewing separately obtained history, performing a medically appropriate examination and/or evaluation counseling the patient/family/caregiver, ordering medications, tests, or procedures, referring to and communicating with other health doggy daycare activities director, documenting clinical information in the electronic or other health record, independently interpreting results, communicating results to the patient/family/caregiver, and care coordination. /craig/ DELLA PEREZ Physician Prize Coordinator Signed: 05/27/2024 14:28 DELLA PEREZ [facility]
--- OUTSIDE RECORDS SUMMARY | 2024-06-02 06:04 | XMS_ITS | Clinical Summary ---
Author Organization [facility] Address [address] [place] [address] Care Team Providers Care Weld Fitter Name Role Phone Concepcion Zeng NP Unavailable Unavailable Gregory Halmin Unavailable [phone] Chris Hamlin NP Primary Care Provider Enzo Gutierrez MD Unavailable Allergies Active Allergy Reactions Criticality Noted Date Comments Statins Myalgias Low 05/24/2019 Doesn't remember reactions Info from 06/12/21 neuro O.V. Medications vitamin D2, ergocalciferol, 07980 UNITS capsule Take 1 capsule (50,000 Units total) by mouth weekly. On Tuesdays Active potassium chloride 20 MEQ Tab CR Take 1 tablet (20 mEq total) by mouth daily. Active apixaban 5 MG tablet Take 1 tablet (5 mg total) by mouth 2 (two) times daily. 30 tablet 8 Active busPIRone 5 MG tablet Take 1 tablet (5 mg total) by mouth 2 (two) times daily. Active emtricitabine-te nofovir 200-300 MG tabletIndication s:HIV Positive Take 1 tablet by mouth daily. Indications: Positive HIV Test Active dolutegravir 50 MG tabletIndication s:HIV Positive Take 1 tablet (50 mg total) by mouth daily. Indications: Positive HIV Test Active Glucosamine Sulfate 1000 MG Tab Take 1 tablet by mouth daily as needed. d Active venlafaxine XR 150 MG 24 hr capsule Take 1 capsule (150 mg total) by mouth daily. Active melatonin 3 MG tablet Take 1 tablet (3 mg total) by mouth nightly as needed. Active tamsulosin 0.4 MG Cap Take 1 capsule (0.4 mg total) by mouth daily. Active Diclofenac Sodium 1.6 % Gel As needed Act ketty amitriptyline (ELAVIL) 10 MG tabletIndication s:Tussive syncope,Dizzines s Take 3 tab nightly x 2 weeks then 4 tabs nightly 120 tablet 1 2 Active pantoprazole EC (PROTONIX) 40 MG tabletIndication s:Acute superficial gastritis without hemorrhage Take 1 tablet (40 mg total) by mouth daily. 30 tablet 3 2 Active Glucosamine-Vit D-Hyaluron Acd (KARYN GLUCOSAMINE PLUS VIT D3) 9086-7990-1.65 MG-UNIT-MG Tab Take by mouth every morning. Active dilTIAZem XR (DILACOR XR) 240 MG 24 hr capsule Take 1 capsule (240 mg total) by mouth daily. 90 capsule 3 3 Active metoprolol succinate ER (TOPROL-XL) 50 MG 24 hr tablet Take 1 tablet (50 mg total) by mouth nightly. 90 tablet 3 3 Active magnesium oxide (MAG-OX) 400 MG tablet Take 1 tablet (400 mg total) by mouth daily. 90 tablet 3 3 Active HYDROcodone-acet aminophen (NORCO) 10-325 MG tabletIndication s:Chronic Pain Take 1 tablet by mouth every 6 (six) hours as needed for Pain. Indications: Chronic Pain 60 tablet 3 Active Active Problems Problem Noted Date Diagnosed Date Hypertensive heart disease without heart failure 01/27/2023 Gastroesophageal reflux disease without esophagi tis 01/27/2023 Other dysphagia 04/08/2022 Acute superficial gastritis without hemorrhage 1 06/09/2021 Supraventricular tachycardia (CMS/HCC [facility]/HCC) 1 Tussive syncope 06/12/2021 Overview (11/01/2021): 06/12/21: Attempted medications/therapeutic modalities: 1. None Diagnostic evaluation: EEG normal Assessment & Plan (02/04/2022 12:19 PM CDT): Plan: I have discussed the differential diagnosis with the patient. The patient will continue Amitriptyline titrating to 40 mg once nightly. I have discussed the most common adverse reactions, side effects and benefits of the medication with the patient. The patient is to call for any problems. Assessment & Plan (11/13/2021 4:41 PM CDT): Plan: I have discussed the differential diagnosis with the patient. The patient will start Amitriptyline titrating to 20 mg once nightly. I have discussed the most common adverse reactions, side effects and benefits of the medication with the patient. The patient is to call for any problems. Assessment & Plan (08/21/2021 10:15 AM CDT): Plan: I have discussed the differential diagnosis with the patient. He will have an MRI brain with and without contrast to evaluate for structural lesions that could cause his symptoms. He will have an EEG to look for seizure predisposition. Pending his evaluation results one could consider a trial of a tricyclic antidepressant, gabapentin or pregabalin as a treatment for tussive syncope. He has been encouraged to limit his driving until testing has been completed. Further recommendations will follow after the above has been completed. The patient is to call for any problems. Assessment & Plan (06/12/2021 3:05 PM RAILCAR SWITCHER): Plan: I have discussed the differential diagnosis with the patient. He will have an MRI brain with and without contrast to evaluate for structural lesions that could cause his symptoms. He will have an EEG to look for seizure predisposition. He will complete his GI work-up for possible GERD/gastritis. He has been referred to ENT for further evaluation and treatment. I will defer pulmonology evaluation to his primary care provider if it is felt to be indicated. Pending his evaluation results one could consider a trial of a tricyclic antidepressant, gabapentin or pregabalin as a treatment for tussive syncope. He has been encouraged to limit his driving until testing has been completed. Further recommendations will follow after the above has been completed. The patient is to call for any problems. Dizziness 06/06/2021 Overview (06/06/2021): 06/10/2021: Assessment & Plan (08/20/2021 10:18 PM CDT): Plan: Please see tussive syncope for primary diagnostic and treatment plan. Assessment & Plan (06/12/2021 3:04 PM RAILCAR SWITCHER): Plan: Please see ssive syncope for primary diagnostic and treatment plan. Atypical atrial flutter ([facility]) 2019 intermediate current use of antiarrhythmic drug 08/2017 Hypertension 09/30/2017 Mixed hyperlipidemia 09/30/2017 intermediate current use of anticoagulant 8 Paroxysmal atrial fibrillation ([facility]) 09/29/2017 Family History Medical History Relation Comments neuroblastoma Brother Coronary artery disease Father Glaucoma Father Hypertension Father Lung Cancer Father Cancer Sister Relation Status Comments Brother (Age 55) Father Mother Alive Sister Alive Social History Tobacco Use Types Packs/Day Years Used Date Smoking Tobacco: Former Cigarettes 1 30 0 09/30/1981 - 10/01/2011 Smokeless Tobacco: Former Chew Quit: 2016 Tobacco Cessation:Counseling Given: Not Answered Alcohol Use Standard Drinks/Week Comments Yes 23.3 (1 standard dri nk = 0.6 oz pure alcohol) mix drink or beer -3 beer mixed 2-3 drinkd about 4-5 times week PHQ-2 Answer Date Recorded Patient Health Questionnaire-2 Score 0 04/08/2022 Sex and Gender Information Value Date Recorded Sex Assigned at Not on file Legal Sex Male 11:09 PM RAILCAR SWITCHER Gender Identity Male 05/30/2021 2:32 PM RAILCAR SWITCHER Sexual Orientation Not on file Occupation Industry Job Start Date Job End Date [employer] [employer] Not on file Not on file Not on file Last Filed Vital Signs Vital Sign Reading Time Taken Comments Blood Pressure 133/88 08/15/2022 1:30 PM CDT Pulse 69 08/15/2022 1:35 PM CDT Temperature 36.8 ??C (98.2 ??F) 08/15/2022 1 1:14 AM CDT Respiratory Rate 22 08/15/2022 1:35 PM CDT Oxygen Saturation 91% 08/15/2022 1:35 PM CDT Inhaled Oxygen Concentration - - Weight 121.5 kg (267 lb 13.7 oz) 08/15/2022 7:29 AM CDT Height 190.5 cm (6' 3 ) 08/15/2022 7:29 AM CDT Body Mass Index 33.48 08/15/2022 7:29 AM CDT Plan of Treatment Health Maintenance Due Date Last Done Comments Colorectal Cancer Screening Colonoscopy (10 Years) 1962 Annual Physical 1965 PHQ-2 (Physician [place]) 1974 Hepatitis C 02/25/1980 DTaP, Tdap and Td Vaccines ( 1 - Tdap) 1981 Zoster Vaccines (1 of 2) 02/25/2012 RSV Immunization or 60+ Years (1 - Risk 60-74 years 1-dose series) 2022 COVID-19 Vaccine (2 - 2023-2 5 season) 2023 07/13/2020 Influenza Adult (#1) 2024 PHQ-2 (Physician [place]) 04/28/2024 Meningococcal B Vaccine Aged Out No l onger eligible based on patient's age to complete this topic Meningococcal Vaccine Aged Out No grant bettye eligible based on patient's age to complete this topic Pneumococcal Vaccine: Pediat rics (0 to 5 Years) and At-Risk Patients (6 to 64 Years) Aged Out No longer eligi ble based on patient's age to complete this topic RSV Immunizations Under 20 Months Aged Out No longer eligible based on patient's age to complete this topic Medical Devices Implanted Type Area Insurance Territory Manager Device Identifier Shelf Expiration Date Model / Serial / Lot Leg Hardware Ankle Hardware Quattro Link Knotless [place] 4.5mm Peek [place] Implanted:Qty: 1 on 08/15/2022 by Randall Dejesus MD at [facility] Right: Shoulder [employer] 06/18/2027 [id number] / / [id number] Quattro??Link? ?Knotless??Anc hor??4.5mm??Pe ek??[place] Implanted:Qty: 2 on 08/15/2022 by Randall Dejesus MD at [facility] Right: Shoulder [employer] 03/29/2027 [id number] / / [id number] Quattro??Link? ?Knotless??Anc hor??4.5mm??Pe ek??[place] Implanted:Qty: 1 on 08/15/2022 by Randall Dejesus MD at [facility] Right: Shoulder [employer] 06/14/2027 -[id number] / / [id number] Explanted Type Area Insurance Territory Manager Device Identifier Shelf Expiration Date Model / Serial / Lot Nick Medical Lock-Stitch Procedure Kit Explanted:Qty: 1 on 08/15/2022 by Randall Dejesus MD at [facility] Right: Shoulder [employer] 03/05/2025 CM-[id number] / / [id number] Broadband Tape Explanted:Qty: 1 on 08/15/2022 by Randall Dejesus MD at [facility] Right: Shoulder [employer] -[id number] / / [id number] Insurance Advance Directives * Full Code (Latest Code Status on File) Date Activated Date Inactivated Comments 11/19/2019 12:28 PM 11/19/2019 5:55 PM * Full Code Date Activated Date Inactivated Comments 07/12/2019 2:23 PM 07/12/2019 7:31 PM * Full Code Date Activated Date Inactivated Comments 09/30/2017 1:13 PM 09/30/2017 7:10 PM Care Teams Weld Fitter Relationship Specialty Start Date End Date Chris Hamlin NP [address] [place] [address] [address], [place] [address] PCP - General NURSE PRACTITIONER 04/08/22 Concepcion Zeng NP Referring Physician CARDIOVASCULAR DISEASE 10/09/17 Gregory Hamlin PA PHYSICIAN DEBURRER MACHINE 01/17/22 Enzo Gutierrez MD [address] [place] [address] Consulting Physician INTERVENTIONAL CARDIOLOGY 11/21/22
--- OUTSIDE RECORDS SUMMARY | 2024-06-02 06:04 | XMS_ITS | Referral Summary ---
Author Organization [facility] Office [facility] Address [address] [place] [address] Care Team Providers Care Disbursement Clerk Name Role Phone Administration, Tiffany ALLEN Primary Care Provide r Unavailable Encounters Date Type Department Care Team Description 05/31/2024 Telephone [facility] Medical [facility] Orthopedics and Sports Medicine [address] [place] [address] Altaf Naidu MD 03/24/2024 Telephone [facility] Cardiology [address] 8th [place] [address] [place] [id number] Danielle Meek 03/18/2024 Telephone [facility] Medical [facility] Cardiology [address] [place] [address] Kerry Joseph NP 03/18/2024 2:00 PM CANDY COUNTER CLERK Office Visit [facility] Cardiology [address] [place] [address] Kerry Joseph NP PSVT (paroxysmal supraventricular tachycardia) (HCC); Paroxysmal atrial fibrillation (CMS/HCC) (HCC); Coronary artery disease involving [place] coronary artery of [place] heart without angina pectoris; Orthostatic syncope; Hospital discharge follow-up; Lipid screening 03/02/2024 Orders Only [facility] Cardiology [address] [place] [address] Sarah Wong NP from Last 3 Months Allergies Active Allergy Reactions Criticality Noted Date Comments Spqermb-Jcb-Lhz Reductase Inhibitors Muscle pain,Unknown Medium 05/24/2019 Info [...] times a day 60 tablet/chew tab 12/24/19 Active oxyCODONE-acetamin ophen (PERCOCET) 5-325 mg per tabletIndications: Pain Take 1-2 tablets by mouth every 4 (four) hours as needed for pain 30 tablet 12/24/19 Active Additional Information Patient not taking.Reported on [...] 20 mg tabletIndications: Coronary artery disease involving [place] coronary artery of [place] heart without angina pectoris Take 1 tablet (20 mg total) by mouth daily 90 tablet 3 03/18/20 24 Active Active Problems Problem Noted Date Diagnosed Date NSTEMI (non-ST elevated myocardial infarction) ( [facility]) 11/24/2023 ARIADNA (acute kidney injury) 11/24/2023 Acute chest pain 11/23/2023 Acute coronary syndrome ([facility]) 11/23/2023 Supraventricular tachycardia 11/23/2023 Atrial fibrillation ([facility]) 11/23/2023 Primary hypertension 11/23/2023 Hyperlipidemia 11/23/2023 HIV (human immunodeficiency virus infection) CKD (chronic kidney disease) 11/23/2023 Elevated liver enzymes 11/23/2023 High anion gap metabolic acidosis 11/23/2023 Lactic acidosis 11/23/2023 Complete tear of right rotator cuff 09/10/2023 Social History Tobacco Use Types Packs/Day Years [...] on file Legal Sex Male 9:53 AM CANDY COUNTER CLERK Gender Identity Not on file Sexual Orientation Not on file Last Filed Vital Signs Vital Sign Reading Time Taken Comments Blood Pressure 122/84 03/18/2024 2:02 PM CANDY COUNTER CLERK Pulse 89 03/18/2024 2:02 PM CANDY COUNTER CLERK Temperature 36.3 ??C (97.4 ??F) 12/24/2023 3:00 PM CD T Respiratory Rate 18 12/24/2023 3:00 PM CDT Oxygen Saturation 95% 03/18/2024 2:02 PM CANDY COUNTER CLERK Inhaled Oxygen Concentration - - Weight 117.5 kg (259 lb) 03/18/2024 2:02 PM CANDY COUNTER CLERK Height 190.5 cm (6' 3 ) 03/18/2024 2:02 PM CANDY COUNTER CLERK Body Mass Index 32.37 03/18/2024 2:02 PM CANDY COUNTER CLERK Plan of Treatment Not on file Medical Devices Implanted Type Area Drum Drier Operator Device Identifier Shelf Expiration Date Model / Serial / Lot Holli Endoscopy [place] Suture Alphavent 4.75mm With 3-Strands 1.4mm Xbraid Tt [id number] - [id number] Implanted:Qty: 1 on 12/24/2023 by Altaf Naidu MD at [facility] Right: Shoulder [place] [employer] [id number] 10/23/2024 [id number] / / [id number] [employer] Corkscrew L4.75 Mr Tape Full Thread [place] Suture Biocomposite Sterile Disposable Latex Free [id number] - [id number] Implanted:Qty: 1 on 12/24/2023 by Altaf Naidu MD at [facility] Right: Shoulder [employer] [id number] 08/25/2026 [id number] / / [id number] Procedures Procedure Name Priority Date/Time Associated Diagnosis Comments POCT LIPID PANEL Routine 03/18/2024 2:14 PM CANDY COUNTER CLERK Lipid screening URINALYSIS AND REFLEX TO MICROSCOPIC AND CULTURE Routine 11/23/2023 6:08 PM CDT from Last 3 Months or Most Recently Relevant to Health Maintenance Results * POCT lipid panel (03/18/2024 2:14 PM CANDY COUNTER CLERK) Cholesterol, POC 248 mg/dL HDL, POC 41 mg/dL Triglycerides, POC 161 mg/dL LDL Cholesterol POC 175 mg/dL Chol/HDL Ratio, POC 4.3 Non-HDL Cholesterol, POC 207 mg/dL Cholesterol Total, POC 248 mg/dL Capillary blood 03/18/2024 2 :14 PM CANDY COUNTER CLERK Kerry Joseph NP POINT OF CARE TEST [...] tendency for uric acid stone formation. Source: [employer] Current Interpretive Data was last revised on [...] MH (LEO) Leukocyte esterase, ur Negative Negative [facility] (LEO) UA reflex comment Reflex conditions for microscopic UA and culture not met. [facility] (LEO) Urine 11/23/2023 6:08 PM CDT 11/23/2023 6:17 PM CDT Lul Rahman MD LAB MICROBIOLOGY - GENERAL OR DERABLES Final Result [facility] (LEO) [address] [facility] Department [place] [address] from Last 3 Months or Most Recently Relevant to Health Maintenance Insurance [facility] [place] [address] [place] [facility] Advance Directives For more information, please contact: [phone] * Full Code (Latest Code Status on File) Date Activated Date Inactivated Comments 11/23/2023 4:47 AM 11/24/2023 11:08 PM Care Teams Disbursement Clerk Relationship Specialty Start Date End Date Tiffany Ugarte MD PCP - General Data Processor 06/01/24
--- OUTSIDE RECORDS SUMMARY | 2024-06-02 06:04 | XMS_ITS | Encounter Summary ---
Author Organization [facility] Address [facility] [place] [address] Care Team Providers Care Lead Sustainability Specialist Name Role Phone Azucena, Concepcion Martin NP Unavailable Unavailable Kevin Ontiveros MD Primary Care Provider [phone] Kevin Ontiveros MD Unavailable [phone] Gregory Hamlin Unavailable [phone] Chris Hamlin NP Primary Care Provider Arcadio Gilmore DO Unavailable [phone] Enzo Gutierrez MD Unavailable Encounter Details Date Type Department Care Team (Late st Contact Info) Description 05/04/2019 Abstract [facility] [address] [place] [address] Pool Ragland MD Social History Tobacco Use Types Packs/Day Years Used Date Smoking Tobacco: Former Cigarettes 1 30 0 09/30/1981 - 10/01/2011 Smokeless Tobacco: Former Chew Quit: 2016 Alcohol Use Standard Drinks/Week Comments Yes 0 (1 standard drink = 0.6 oz pur e alcohol) rarely Sex and Gender Information Value Date Recorded Sex Assigned at Not on file Legal Sex Male 11:09 PM VICE PRESIDENT BUSINESS [employer] CORPORATE DEVELOPMENT Gender Identity Male 05/30/2021 2:32 PM VICE PRESIDENT [employer]PORATE DEVELOPMENT Sexual Orientation Not on file documented as of this encounter Plan of Treatment Not on file documented as of this encounter Procedures Procedure Name Priority Date/Time Associated Diagnosis Comments CMP (OUTSIDE LAB) Routine 05/03/2019 5:1 5 PM VICE PRESIDENT [employer] DEVELOPMENT CBC W/DIFF AUTOMATED Routine 05/03/2019 5:15 PM VICE PRESIDENT [employer]PORATE DEVELOPMENT MAGNESIUM (OUTSIDE LAB) Routine 03/06/2019 3:20 PM VICE PRESIDENT [employer] CORPORATE DEVELOPMENT THYROID PANEL Routine 03/06/2019 documented in this encounter Results * (ABNORMAL) CMP (OUTSIDE LAB) (05/03/2019 5:15 PM VICE PRESIDENT [employer]PORATE DEVELOPMENT) SODIUM S/P/B 140 136 - 145 POTASSIUM S/P/B 3.9 3.5 - 5.1 CHLORIDE S/P/B 105 98 - 107 CO2 25 22 - 28 BUN 19(A) 7 - 18 CREATININE S/P/B 1.43(A) 0.7 - 1.3 EGFR AFR. AMER. 65 EGFR NON-AFR. AMER. 55 <=90 CALCIUM S/P/B 9.1 8.4 - 10.2 GLUCOSE 114(A) 70 - 105 mg/dL TOTAL PROTEIN S/P/B 6.8 6.0 - 8.3 ALBUMIN S/P/B 4.0 3.5 - 5.0 AST 22 10 - 42 ALT 32 10 - 40 ALKALINE PHOSPHATASE S/P/B 107(A) 32 - 92 BILIRUBIN TOTAL S/P/B 0.4 0.2 - 1.0 TROPONIN I 0.01 0.0 - 0.49 B TYPE NATRIURETIC PEPTIDE 23 0 - 100 05/03/2019 5:15 PM VICE PRESIDENT [employer]PORATE DEVELOPMENT us Doc [facility] Abstract LAB-OUTSIDE/ABSTRACTED Final Result * (ABNORMAL) CBC W/DIFF AUTOMATED (05/03/2019 5:15 PM VICE PRESIDENT [employer] CORPORATE DEVELOPMENT) WBC 5.2 4.0 - 10.8 RBC 4.64 4.6 - 5.9 HGB 14.5 13.5 - 18.0 HCT 42.0 40.0 - 52.0 MCV 91 81 - 100 MCH 31 28 - 33 MCHC 34 32 - 36 RDW 14.6 11.5 - 15.5 PLT 162 140 - 440 MPV 6.6(A) 7.5 - 11.0 NEUTROPHILS % 64.6 40.0 - 75.0 LYMPHOCYTES % 23.3 15.0 - 45.0 MONOCYTES % 9.7 2.0 - 12.0 EOSINOPHILS % 1.7 0.0 - 5.0 BASOPHILS % 0.7 0.0 - 2.0 ABS. NEUTROPHILS 3.4 1.7 - 7.0 ABS. LYMPHOCYTES 1.2 0.9 - 3.7 ABS. MONOCYTES 0.5 0.2 - 0.8 ABS. BASOPHILS 0.1 0.0 - 0.5 05/03/2019 5:15 PM VICE PRESIDENT [employer]PORATE DEVELOPMENT us Doc [facility] Abstract LABORATORY Final Result * MAGNESIUM (OUTSIDE LAB) (03/06/2019 3:20 PM VICE PRESIDENT [employer] CORPORATE DEVELOPMENT) MAGNESIUM 1.9 03/06/2019 3:20 PM VICE PRESIDENT BUSINESS [employer] CORPORATE DEVELOPMENT us Doc [facility] Abstract LAB-OUTSIDE/ABSTRACTED Final Result * THYROID PANEL (03/06/2019) TSH 1.77 0.34 - 5.6 T4 6.5 6.0 - 12.2 03/06/2019 us Doc [facility] Abstract LABORATORY Final Result documented in this encounter Visit Diagnoses Not on filedocumented in this encounter Additional Health Concerns Infection Onset Date Last Indicated Resolved Time COVID-19 Rule Out 10/29/2019 10/29/2019 10/31/2019 11:25 AM CDT COVID-19 Rule Out 11/16/2019 11/16/2019 11/17/2019 6:05 PM CDT COVID-19 Rule Out 07/31/2021 07/31/2021 07/31/2021 9:01 PM CDT documented as of this encounter Care Teams Lead Sustainability Specialist Relationship Specialty Start Date End Date Kevin Ontiveros MD [address] [place] [address] PCP - General FAMILY PRACTICE 12/25/17 04/07/22 Kevin Ontiveros MD [address] [place] [address] PCP - [facility] PROVIDER FAMILY PRACTICE 12/25/17 04/07/22 hCris Hamlin NP [address] [place] [address] PCP - General NURSE PRACTITIONER 04/08/22 Concepcion Zeng SCAGLIOLA MECHANIC Referring Physician CARDIOVASCULAR DISEASE 10/09/17 Gregory Hamlin PA [address] [place] [address] PHYSICIAN PUBLIC WORKS MANAGER 01/17/22 Arcadio Gilmore DO [address] [place], [place] [address], [place] [address] Consulting Physician CARDIOVASCULAR DISEASE 05/30/22 Enzo Gutierrez MD [facility] [address] [place] [address] Consulting Physician INTERVENTIONAL CARDIOLOGY 11/21/22 documented as of this encounter
--- OUTSIDE RECORDS SUMMARY | 2024-06-02 06:04 | XMS_ITS | Encounter Summary ---
Author Name [facility] Organization [facility] [place] Address [address] [place] [address] Care Team Providers Care It Security Engineer Name Role Phone FARIBA CHEUNG Primary Care Provider Unavailabl e Selected Encounter This section includes the information on record at [place] for the Encounter. Date/Time Encounter Type Encounter Description Reason Pro vider Source Jun 01, 2024 01:42 PM Outpatient Encounter ADMIN PAT ACTIVTIES (MASNONCT) IHE Encounter Template Text not used by DC Plan of Treatment: Future Appointments (+ 6 months) and Future Tests (+/- 45 days) The Plan of Treatment section includes future care activities for the patient from all [place] treatmentfacilities. This section includes future appointments and future orders which are active, pending or scheduled. Future Appointments This section includes appointments that were scheduled to occur 6 months from the date of the Encounter, up to a maximum of 20 appointments. The data comes from all [place] treatment facilities. Appointment Date/Time Appointment Type Appointme nt Facility Name Oct 05, 2024 01:00 PM AMBULATORY - NONE [facility] Oct 19, 2024 02:00 PM AMBULATORY - NONE [facility] Active, Pending, and Scheduled Orders This section includes a listing of several types of active, pending, and scheduled orders, including clinic medications orders, diagnostic test orders, procedure orders and consult orders; where the start date of the order is 45 days before the date of the Encounter or 45 days after the date of theEncounter. The data comes from all [place] treatment facilities. Test Date/Time Test Type Test Details Facility Name May 25, 2024 03:39 PM Consult Order [facility] May 25, 2024 03:39 PM Consult Order [facility] Cons Laboratory [facility] Jun 01, 2024 02:42 PM Consult Order CARDIOLOGY OUTPATIENT Cons Laboratory [facility] Jun 01, 2024 02:42 PM Consult Order CARDIOLOGY OUTPATIENT Cons Laboratory [facility] Lab Results: +/- 30 days of the encounter This section includes the Chemistry and Hematology Lab Results on record with DC for the patient. Radiology Reports and Pathology Reports are provided separately, in subsequent sections. Lab Results This section contains the Chemistry/Hematology Results that were resulted 30 days before or 30 daysafter the date of the Encounter. Date/Time Source Result Type Result - Unit Interpretation Reference Range Comment May 27, 2024 02:24 PM [facility] PTH INTCT Specimen Type: PLASMA No comment entered. Ordering Provider: Crystal UP Report Released Date/Time: May 11, 2024 04:06 PM Reporting Lab: [facility] [address] [facility] [address] Performing Lab: [facility] [address] [place] [id number] PTH INTCT 83.4 pg/mL H 18.4-80.1 May 27, 2024 02:[address] [facility] VITAMIN D 25-HYDROXY Specimen Type: SERUM Comment: Deficiency <20, Insufficiency 20-30, Sufficiency 30-100, Toxicity >100 ng/mL Ordering Provider: FARIBA CHEUNG Report Released Date/Time: Apr 23, 2024 08:34 AM Reporting Lab: [facility] [address] [facility] [address] Performing Lab: [facility] [address] [facility] [address] VITAMIN D 25-HYDROXY 51.70 ng/mL 30-100 May 27, 2024 02:24 PM [facility] URINE ALBUMIN/CREAT (RAND URINE) Specimen Type: URINE No comment entered. Ordering Provider: Crystal UP Report Released Date/Time: May 11, 2024 04:06 PM Reporting Lab: [facility] [address] [facility] [address] Performing Lab: [facility] [address] [facility] [address] URINE ALBUMIN(RAND URINE) 1.5 mg/dL <2.0 CREAT(RNDM URINE) 210.70 mg/dL 40-278 CREAT RATIO (RNDM URINE) 7 mg/g <30 May 27, 2024 02:[address] [facility] COMPREHENSIVE PNL Specimen Type: PLASMA Comment: eGFR was calculated using the CKD-EPI Creatinine (2020) equation. Ordering Provider: FARIBA CHEUNG Report Released Date/Time: Apr 23, 2024 08:34 AM Reporting Lab: [facility] [address] [facility] [address] Performing Lab: [facility] [address] [facility] [address] ANION GAP 12 mmol/L 5-15 EGFR 75 [...] 102 mmol/L 98-109 CREATININE 1.11 mg/dL 0.73-1.18 Social History: Smoking Status (Most current) and Tobacco Use (All prior to encounter date) This section includes the most current, and the historical, smoking and tobacco- related health factors from the [place] facility where the Encounter took place. Current Smoking Status This section includes the most current smoking, or tobacco-related health factor, from the [place] facility where the Encounter took place. Date/Time Current Smoking Status Comment Kyra ity Dec 10, 2023 11:00 AM VA-TOBACCO FORMER USER [facility] Tobacco Use History This section includes a history of the smoking, or tobacco-related health factors, that were collected on or before the date of the Encounter. The data comes from the [place] facility where the Encounter took place. Date/Time Smoking Status/Tobacco Use Comment F acility Dec 10, 2023 11:00 AM VA-TOBACCO QUIT 15 YRS OR MORE [facility] Nov 27, 2018 01:03 PM VA-TOBACCO FORMER USER [facility] Nov 27, 2018 01:03 PM VA-TOBACCO QUIT 1 TO < 5 YRS [facility] Advance Directives: All historical and current Section Date Range: From patient's date of to the date document was created. This section includes ALL of a patient's completed or amended [place] Advance and Rescinded Directives. The entries below indicate that a directive exists for the patient, but an actual copy is not included with this document. The data comes from all [place] facilities. Date Advance Directives Provider Source Dec 31, 2023 ADVANCE DIRECTIVE DISCUSSION [facility] Encounter Notes: All associated encounter notes This section contains the clinical notes associated to the Encounter. Date/Time Encounter Note(s) Provider Source Jun 01, 2024 01:42 PM PRIMARY CARE ADMIN ISTRATIVE NOTE: LOCAL TITLE: ADMINISTRATIVE/SCHEDULING CALL STANDARD TITLE: PRIMARY CARE ADMINISTRATIVE NOTE DATE OF NOTE: JUN 01, 2024@13:42 ENTRY DATE: JUN 01, 2024@13:43:01 AUTHOR: HIWOT JOHNSON EXP COSIGNER: URGENCY: STATUS: COMPLETED ADMINISTRATIVE/SCHEDULING CALL Has ADDENDA THE NURSE FROM [facility] CARDIOLOGY DEPT. CALLED IN ORDER TO GIVE THE DIAGNOSIS CODE TO THE PACT RN AND WOULD LIKE CALL BACK [phone]. DIAGNOSIS IS I24.9 AND I48.91. /craig/ HIWOT JOHNSON Advanced Brick Pointer Signed: 06/01/2024 13:44 Receipt Acknowledged By: 06/01/2024 14:38 /es/ BETSY REGALADO RN 06/01/2024 ADDENDUM STATUS: COMPLETED FAX #[phone] /craig/ HIWOT JOHNSON Advanced Brick Pointer Signed: 06/01/2024 13:45 HIWOT JOHNSON [facility]
--- OUTSIDE RECORDS SUMMARY | 2024-06-02 06:04 | XMS_ITS | Encounter Summary ---
Author Organization [facility] Address [facility] [place] [address] Care Team Providers Care Alcoholism Worker Name Role Phone Azucena, Concepcion Martin NP Unavailable Unavailable Kevin Ontiveros MD Primary Care Provider + [phone] Kevin Ontiveros MD Unavailable [phone] Gregory Hamlin Unavailable + [phone] Chris Hamlin NP Primary Care Provider Arcadio Gilmore DO Unavailable [phone] Enzo Gutierrez MD Unavailable Encounter Details Date Type Department Care Team (Late st Contact Info) Description 07/09/2019 [facility] [address] [place] [address] Pool Ragland MD Social History Tobacco Use Types Packs/Day Years Used Date Smoking Tobacco: Former Cigarettes 1 30 0 09/30/1981 - 10/01/2011 Smokeless Tobacco: Former Chew Quit: 2016 Alcohol Use Standard Drinks/Week Comments Yes 0 (1 standard drink = 0.6 oz pur e alcohol) rarely Sex and Gender Information Value Date Recorded Sex Assigned at Not on file Legal Sex Male 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 Gender Identity Male 05/30/2021 2:32 PM CREATIVE ARTS 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 THERAPIST Sexual Orientation Not on file documented as of this encounter Plan of Treatment Not on file documented as of this encounter Procedures Procedure Name Priority Date/Time Associated Diagnosis Comments COMPREHENSIVE METABOLIC PANEL Routine 07/07/2019 10:37 AM CDT SVT (supraventricular tachycardia) CBC, AUTO, NO DIFF Routine 07/07/2019 10 :37 AM CDT SVT (supraventricular tachycardia) documented in this encounter Results * (ABNORMAL) CBC, AUTO, NO DIFF (07/07/2019 10:37 AM CDT) WBC 5.1 4.23 - 9.07 RBC 5.1 4.63 - 6.08 HGB 15.6 13.7 - 17.5 HCT 47.4 40.1 - 51 MCV 92.9(A) 79 - 92.2 MCH 30.6 25.7 - 32.2 MCHC 32.9 32.3 - 36.5 RDW 12.8 11.6 - 14.4 PLT 208 163 - 337 MPV 9.1 6.4 - 12.4 07/07/2019 10:3 7 AM CDT us Concepcion Zeng NP LABORATORY Final Result * (ABNORMAL) COMPREHENSIVE METABOLIC PANEL (07/07/2019 10:37 AM CDT) SODIUM S/P/B 142 136 - 145 POTASSIUM S/P/B 4.5 3.5 - 5.1 CO2 26 21 - 32 CHLORIDE S/P/B 106 98 - 107 GLUCOSE 93 70 - 99 mg/dL CALCIUM S/P/B 9.3 8.5 - 10.1 BUN 21(A) 7 - 18 CREATININE S/P/B 1.43(A) 0.7 - 1.3 EGFR NON-AFR. AMER. 51 <=90 ALKALINE PHOSPHATASE S/P/B 149(A) 46 - 116 ALT 45 16 - 63 AST 23 15 - 37 BILIRUBIN TOTAL S/P/B 0.5 0.2 - 1 ALBUMIN S/P/B 4.1 3.5 - 5.0 TOTAL PROTEIN S/P/B 7.5 6.4 - 8.2 ANION GAP 14.5 10 - 20 07/07/2019 10:3 7 AM CDT us Concepcion Zeng NP LABORATORY Final Result documented in this encounter Visit Diagnoses Diagnosis SVT (supraventricular tachycardia) (CMS/HCC [facility]) Other specified cardiac dysrhythmias documented in this encounter Additional Health Concerns Infection Onset Date Last Indicated Resolved Time COVID-19 Rule Out 10/29/2019 10/29/2019 10/31/2019 11:25 AM CDT COVID-19 Rule Out 11/16/2019 11/16/2019 11/17/2019 6:05 PM CDT COVID-19 Rule Out 07/31/2021 07/31/2021 07/31/2021 9:01 PM CDT documented as of this encounter Care Teams Alcoholism Worker Relationship Specialty Start Date End Date Kevin Ontiveros MD [address] [place] [address] PCP - General FAMILY PRACTICE 12/25/17 04/07/22 Kevin Ontiveros MD [address] [place] [address] PCP - MO PROVIDER FAMILY PRACTICE 12/25/17 04/07/22 Chris Hamlin NP [address], [place] [address] PCP - General NURSE PRACTITIONER 04/08/22 Concepcion Zeng NP Referring Physician CARDIOVASCULAR DISEASE 10/09/17 Gregory Hamlin PA [address] [place] [address] PHYSICIAN EXTERN 01/17/22 Arcadio Gilmore DO [address] [place] [address] Consulting Physician CARDIOVASCULAR DISEASE 05/30/22 Enzo Gutierrez MD [facility] [address] [place] [address] Consulting Physician INTERVENTIONAL CARDIOLOGY 11/21/22 documented as of this encounter
--- OUTSIDE RECORDS SUMMARY | 2024-06-02 06:04 | XMS_ITS | Encounter Summary ---
Author Name [facility] Organization [facility] [place] Address [address] [place] [address] Care Team Providers Care Wholesale Account Manager Name Role Phone FARIBA CHEUNG Primary Care Provider Unavailabl e Selected Encounter This section includes the information on record at [place] for the Encounter. Date/Time Encounter Type Encounter Description Reason Provider Source Nov 26, 2023 09:06 AM Outpatient Encounter GENERAL INTERNAL MEDICINE VANITA ESCAMILLA E Encounter Template Text not used by [place] Plan of Treatment: Future Appointments (+ 6 months) and Future Tests (+/- 45 days) The Plan of Treatment section includes future care activities for the patient from all [place] treatmentfacilities. This section includes future appointments and future orders which are active, pending or scheduled. Future Appointments This section includes appointments that were scheduled to occur 6 months from the date of the Encounter, up to a maximum of 20 appointments. The data comes from all [place] treatment facilities. Appointment Date/Time Appointment Type Appointme nt Facility Name Dec 10, 2023 11:00 AM [facility]BULATORY [facility] Dec 15, 2023 02:00 PM AMBULATORY - MEDICINE [facility] Jan 27, 2024 03:00 PM AMBULATORY - PSYCHIATRY [facility] Feb 03, 2024 01:30 PM AMBULATORY - NONE [facility] Mar 30, 2024 01:50 PM AMBULATORY - NONE [facility] Apr 14, 2024 01:30 PM AMBULATORY - NONE [facility] May 11, 2024 01:30 PM AMBULATORY - NONE [facility] May 27, 2024 02:00 PM AMBULATORY - MEDICINE [facility] May 27, 2024 02:40 PM AMBULATORY - NONE [facility] Advance Directives: All historical and current Section Date Range: From patient's date of to the date document was created. This section includes ALL of a patient's completed or amended [place] Advance and Rescinded Directives. The entries below indicate that a directive exists for the patient, but an actual copy is not included with this document. The data comes from all [place] facilities. Date Advance Directives Provider Source Dec 31, 2023 ADVANCE DIRECTIVE DISCUSSION Martin MON[facility] Encounter Notes: All associated encounter notes This section contains the clinical notes associated to the Encounter. Date/Time Encounter Note(s) Provider Source Nov 23, 2023 09:06 AM NONVA NOTE: LOCAL TITLE: COMMUNITY CARE-SLICK SELF PRESENTING CARE COORD PLAN STANDARD TITLE: NONVA NOTE DATE OF NOTE: NOV 23, 2023@09:06 ENTRY DATE: NOV 26, 2023@09:07:28 AUTHOR: SHYANN ESCAMILLA COSIGNER: URGENCY: STATUS: COMPLETED COMMUNITY CARE-SLICK SELF PRESENTING CARE COORD PLAN [address] Has ADDENDA Emergency Notification Intake Date Presenting to the Facility: Oct Method of Contact: Submitted to Centralized Call Center Notification ID: [id number] [facility] Referral #: [id number] Clinical Review [facility] Name: Hospital: [facility] Address: City: [place] State: [place] Zip Code: Phone : Community Facility Point of Contact: Name: Phone: Chief complaint: Syncope and collapse Primary Diagnosis: Disposition Admitted Route of Admission: Date of Admission: Oct Admitting Diagnosis: ACUTE CHEST PAIN Community Care Provider: Confirm Level of Care: Records sent to [facility] for expedited upload. [facility] alerted via ECR Tool for eligibility review. No further records available. Alerting PCP team to this note for continuity of care. Records r/t this episode of care may be found in JLV/EPIC; also sent to [facility] for scanning. Hospital Course: Acute coronary syndrome Supraventricular tachycardia Assessment: -Patient presented with typical symptoms concerning for ACS that are now clinically improved this morning after receiving nitroglycerin and full-dose aspirin yesterday. -11/22: EKG showing sinus rhythm, LVH, nonspecific ST changes. He has multiple risk factors. Heart Score 8. Initial troponin was 23, with subsequent 161, significant delta. Cardiology was contacted and recommended admission with a heparin drip, and cardiac catheterization on 11/24/23. While still in the emergency department, patient went into SVT with pulses up to 172. Required dose adenosine 6 mg followed by 12 mg to be converted back to sinus rhythm. -11/23:Troponin is 281, increased from 161 yesterday. -Heparin drip given until Cardiac cath 11/23 which showed, Mid left circumflex 50% stenosis and Ostial PDA 60% stenosis otherwise nonobstructive coronary artery disease. No stents were placed patient was started on 81 mg aspirin daily. Atrial fibrillation Assessment: Patient with history of AFib. He reports multiple trials of cardioversion and ablation. He is currently on Eliquis 5 mg for anticoagulation and diltiazem 240 mg for rate control. Plan: -continue home diltiazem 240 mg and Eliquis Hypertension Hyperlipidemia Assessment: Labs from [place] on 08/05/2023 with A1c 5.5, lipid panel: TC 245, TG 147, LDL 164.4. Statins listed on his allergy list because of myalgias with lipitor. Plan: -Cardiology started rosuvastatin 20 mg dAILY CKD Possible ARIADNA Assessment: On admission, elevated creatinine 1.87. GFR decreased, 40. On chart review, labs from 08/13/2022 showing creatinine of 1.18, and GFR of 71. If this is his baseline, patient may have an acute kidney injury. Today, creatinine is 1.13 and eGFR is 74. ARIADNA may have been exacerbated by contrast w/ CTA yesterday. Anion gap metabolic acidosis Lactic acidosis Assessment: Anion gap 9 Prev: 20 Bicarb: 20 Prev: 20. 11/22: Lactate level elevated at 4. Likely secondary to ischemia. Improvement to 1.1 after IV fluids. Elevated liver enzymes Assessment: On admission, alk-phos 141, AST 53, ALT 70. Possibly from steatosis. Today, alk phos:105, AST 54, ALT 55 START taking these medications Instructions Last Dose Given Next Dose Due aspirin 81 mg chewable tablet Start taking on: November 25, 2023 81 mg, oral, Daily rosuvastatin 20 mg tablet Commonly known as: CRESTOR Start taking on: November 25, 2023 20 mg, oral, Daily Outpatient Follow-Up: Future Appointments Date Time Provider Department Center 12/10/2023 1:20 PM Eusebio Freemna MD [facility] 01/07/2024 2:45 PM Teofilo Quispe PA [facility] Specialty /craig/ SHYANN ESCAMILLA BSN RN REGISTERED NURSE Signed: 11/26/2023 09:16 12/05/2023 ADDENDUM STATUS: COMPLETED HSRM Referral ID [id number] Status Notify - Approved for 1703. /es/ Sheela Sow, RN, BSN REGISTERED NURSE Signed: 12/05/2023 10:35 SHYANN ESCAMILLA [facility]
--- OUTSIDE RECORDS SUMMARY | 2024-06-02 06:04 | XMS_ITS | Encounter Summary ---
Author Organization [facility] Address [facility] [place] [address] Care Team Providers Care Search Engine Optimization Specialist Name Role Phone New Referring, Provider Primary Care Provider Un available Concepcion Zeng NP Unavailable Unavailable Kevin Ontiveros MD Primary Care Provider [phone] Kevin Ontiveros MD Unavailable [phone] Gregory Hamlin Unavailable + [phone] Chris Hamlin NP Primary Care Provider Arcadio Gilmore DO Unavailable [phone] Enzo Gutierrez MD Unavailable Encounter Details Date Type Department Care Team (Late st Contact Info) Description 07/12/2017 Abstract [facility] [address] [place] [address] , Generic Conversion, Social History Tobacco Use Types Packs/Day Years Used Date Smoking Tobacco: Never Assessed Sex and Gender Information Value Date Recorded Sex Assigned at Not on file Legal 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 Gender Identity Male 05/30/2021 2:32 PM 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 Sexual Orientation Not on file documented as of this encounter Plan of Treatment Not on file documented as of this encounter Visit Diagnoses Not on filedocumented in this encounter Additional Health Concerns Infection Onset Date Last Indicated Resolved Time COVID-19 Rule Out 10/29/2019 10/29/2019 10/31/2019 11:25 AM CDT COVID-19 Rule Out 11/16/2019 11/16/2019 11/17/2019 6:05 PM CDT COVID-19 Rule Out 07/31/2021 07/31/2021 07/31/2021 9:01 PM CDT documented as of this encounter Care Teams Search Engine Optimization Specialist Relationship Specialty Start Date End Date New Referring, Provider PCP - General UNKNOWN PHYSICIAN SPECIALTY 10/09/17 12/18/17 Kevin Ontiveros MD [address] [place] [address] PCP - General FAMILY PRACTICE 12/25/17 04/07/22 Kevin Ontiveros MD [address] [place] [address] PCP - [place] PROVIDER FAMILY PRACTICE 12/25/17 04/07/22 Chris Hamlin NP [address] [place], [place] [address], [place] [address] PCP - General NURSE PRACTITIONER 04/08/22 Concepcion Zeng NP Referring Physician CARDIOVASCULAR DISEASE 10/09/17 Gregory Hamlin PA [address] [place] [address] PHYSICIAN PSYCH NP 01/17/22 Arcadio Gilmore DO [address] [place], [place] [address], [place], [place] [address] Consulting Physician CARDIOVASCULAR DISEASE 05/30/22 Enzo Gutierrez MD [address] [place] [address] Consulting Physician INTERVENTIONAL CARDIOLOGY 11/21/22 documented as of this encounter
--- OUTSIDE RECORDS SUMMARY | 2024-06-02 06:04 | XMS_ITS | Encounter Summary ---
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 Date/Time Encounter Type Encounter Description Reason Pro vider Source Aug 19, 2023 01:00 PM Outpatient Encounter INFECTIOUS DISEASE IHE Encounter Template Text not used by [place] Plan of Treatment: Future Appointments (+ 6 months) and Future Tests (+/- 45 days) The Plan of Treatment section includes future care activities for the patient from all [place] treatmentfacilities. This section includes future appointments and future orders which are active, pending or scheduled. Future Appointments This section includes appointments that were scheduled to occur 6 months from the date of the Encounter, up to a maximum of 20 appointments. The data comes from all [place] treatment facilities. Appointment Date/Time Appointment Type Appointme nt Facility Name September 10, 2023 01:45 PM [facility]BUL[facility]ORY - NONE [facility] September 12, 2023 11:00 AM AMBULATORY - NONE [facility] Oct 07, 2023 09:00 AM AMBULATORY [facility] NONE [facility] Dec 10, 2023 11:00 AM [facility]ORY - SURGERY [facility] Dec 15, 2023 02:00 PM AMBULATORY - MEDICINE [facility] Jan 27, 2024 03:00 PM AMBULATORY - PSYCHIATRY [facility] Feb 03, 2024 01:30 PM AMBULATORY - NONE [facility] Lab Results: +/- 30 days of the encounter This section includes the Chemistry and Hematology Lab Results on record with [place] for the patient. Radiology Reports and Pathology Reports are provided separately, in subsequent sections. Lab Results This section contains the Chemistry/Hematology Results that were resulted 30 days before or 30 daysafter the date of the Encounter. Date/Time Source Result Type Result - Unit Interpretation Reference Range Comment Aug 05, 2023 01:25 PM [facility] VITAMIN D 25-HYDROXY Specimen Type: SERUM Comment: Deficiency <20, Insufficiency 20-30, Sufficiency 30-100, Toxicity >100 ng/mL Ordering Provider: Lencho PRADO Report Released Date/Time: May 20, 2023 02:36 PM Reporting Lab: [address] [address] Performing Lab: [address] [address] VITAMIN D 25-HYDROXY 47.10 ng/mL 30-100 Aug 05, 2023 01:24 PM [facility] LYMPH SUBSET PANEL 4 ([id number])-[facility] diana Type: BLOOD Comment: INTERPRETIVE INFORMATION: Lymphocyte Subset 4, Pct. and Ratio, WB The CD4 cells are [place] T-cells expressing both CD3 and CD4. The [...] developed and its performance characteristics determined by [facility]. It has not been cleared or approved by the US Food and Drug Administration. This test was performed in a CLIA certified laboratory and is intended for clinical purposes. Performed By: [facility] [address] [place] [address] Filter Changer: Sabino Diaz MD, PhD CLIA Number: [id number] Ordering Provider: OSWALDO EGAN Report Released Date/Time: May 20, 2023 12:00 PM Reporting Lab: [address] [address] Performing Lab: [facility] [address] [facility] [address] ABSOLUTE CD 3 1062 {cells}/uL [phone] ABSOLUTE CD 4 HELPER 517 {cells}/uL 430-1800 ABSOLUTE CD 8 SUPPRESSOR 531 {cells}/uL 210-1200 % CD 3 POS. LYMPH 84 62-87 % CD 4 POS. LYMPH 41 32-64 % CD 8 POS. LYMPH 42 15-46 CD4/CD8 RATIO 0.98 {ratio} 0.80-3.90 LYMPH SUBSET PANEL 4 INFO See Note Aug 05, 2023 01:24 PM [facility] HIV PCR QUANT (PANEL) Specimen Type: PLASMA Comment: andre HIV-1 is only intended for quantitation of HIV-1 viral load and isn't intended for initial clinical diagnosis of HIV infection. andre HIV-1 is not intended for use as a screening test for the presence of HIV-1 in donated blood plasma or as a diagnostic test to confirm the presence of HIV-1 infection. For in vitro diagnostic use only. Quantitation of HIV-1 RNA is dependent on the number of virus particles present in the samples and may be affected by sample collection methods. Though rare, mutations within the highly conserved regions of a viral genome covered by andre HIV-1 may affect primers and/or probe binding resulting in the under- quantitation of virus or failure to detect the presence of virus. Ordering Provider: OSWALDO EGAN Report Released Date/Time: May 20, 2023 12:00 PM Reporting Lab: [facility] [address] [facility] [address] Performing Lab: [facility] [address] [place] [address] HIV PCR QUANT(copies/m L) <20 {copies}/mL 0-19 HIV PCR (log) <1.30 0.00-1.29 Aug 05, 2023 01:24 PM [facility] CHLAMYDIA T/NEISSERIA G PANEL(PCR) Spec imen Type: URINE No comment entered. Ordering Provider: OSWALDO EGAN Report Released Date/Time: May 20, 2023 12:00 PM Reporting Lab: [facility] [address] [facility] [address] Performing Lab: [facility] [address] [facility] [address] NEISSERIA GONORRHOEAE (PCR) NOT DETECTED Negative CHLAMYDIA TRACHOMATIS (PCR) NOT DETECTED Negative Aug 05, 2023 01:24 PM [facility] PHOS Specimen Type: PLASMA Comment: Low-risk levels (desirable) <200 mg/dL Moderate-risk levels (borderline) 200-239 mg/dL High-risk levels: >= 240 mg/dL Normal: <150 mg/dL -Borderline High: 1580-199 mg/dL -High: 200-499 mg/dL -Very High: >500 mg/dL eGFR was calculated using the CKD-EPI Creatinine (2020) equation. Optimal: <100 mg/dL -Near Optimal/Above Optimal: 100-129 mg/dL -Borderline High: 130-159 mg/dL -High: 160-189 mg/dL -Very High: >=190 mg/dL Ordering Provider: OSWALDO EGAN Report Released Date/Time: May 20, 2023 12:00 PM Reporting Lab: [address] [address] Performing Lab: [address] [address] PHOS 2.3 mg/dL L 2.4-5.1 Aug 05, 2023 01:24 PM [facility] A1C % Specimen Type: BLOOD Comment: Normal: < or = 5.6% Pre-diabetes: 5.7-6.4% Diabetes Mellitus: > or = 6.5% Values obtained from A1C measurements can vary. For typical A1C assays, a reported value of 7.0 could actually be between 6.72 and 7.28 if measured by a reference method. A reported value of 9.0 could actually be between 8.73 and 9.27. Ref: http://www.ngsp. org/CAPdata.asp Ordering Provider: Lencho PRADO Report Released Date/Time: May 20, 2023 02:36 PM Reporting Lab: [address] [address] Performing Lab: [address] [address] A1C % 5.5 0.0-5.6 Aug 05, 2023 01:24 PM [facility] LIPID PNL Specimen Type: PLASMA Comment: Low-risk levels (desirable) <200 mg/dL Moderate-risk levels (borderline) 200-239 mg/dL High-risk levels: >= 240 mg/dL Normal: <150 mg/dL -Borderline High: 1580-199 mg/dL -High: 200-499 mg/dL -Very High: >500 mg/dL eGFR was calculated using the CKD-EPI Creatinine (2020) equation. Optimal: <100 mg/dL -Near Optimal/Above Optimal: 100-129 mg/dL -Borderline High: 130-159 mg/dL -High: 160-189 mg/dL -Very High: >=190 mg/dL Ordering Provider: OSWALDO EGAN Report Released Date/Time: May 20, 2023 12:00 PM Reporting Lab: [address] [address] Performing Lab: [address] [address] DIR. HDL 51.2 mg/dL L >=60 TRIGLYCERIDES 147 mg/dL See Comment DIR LDL canc CHOL 245 mg/dL H See Comment LDL (CALCULATED) 164.4 mg/dL H See Comment Aug 05, 2023 01:24 PM [facility] UA W/ MICRO Specimen Type: URINE Comment: Microscopic not performed when urine is clear and is negative for blood, nitrite, leukocyte esterase, and < 30 mg/dL protein. Ordering Provider: OSWALDO EGAN Report Released Date/Time: May 20, 2023 12:00 PM Reporting Lab: [address] [address] Performing Lab: [address] [address] UA-GLUCOSE Negative mg/dL Negative UA-PROTEIN 10 mg/dL H Negative UA-BILIRUBIN Negative Negative UA-UROBILINOGE N <2.0 mg/dL < 2.0 UA-pH 6.0 5.0-8.0 UA-BLOOD Negative Negative UA-KETONE Negative mg/dL Negative UA-NITRITE Negative Negative UA-LEUKOCYTES Negative Negative UA-CLARITY Clear Clear UA-SPECIFIC GRAVITY 1.021 1.005-1.03 0 UA-COLOR Yellow Yellow Aug 05, 2023 01:24 PM [facility] PSA TOTAL EIA Specimen Type: SERUM Comment: PSA was performed on the [employer] Immunoassay Analyzer. Ordering Provider: Lencho PRADO Report Released Date/Time: May 20, 2023 02:36 PM Reporting Lab: [address] [address] Performing Lab: [address] [address] PSA TOTAL EIA 0.63 ng/mL 0.00-4.00 Aug 05, 2023 01:24 PM [facility] COMPREHENSIVE PNL Specimen Type: PLASMA Comment: Low-risk levels (desirable) <200 mg/dL Moderate-risk levels (borderline) 200-239 mg/dL High-risk levels: >= 240 mg/dL Normal: <150 mg/dL -Borderline High: 1580-199 mg/dL -High: 200-499 mg/dL -Very High: >500 mg/dL eGFR was calculated using the CKD-EPI Creatinine (2020) equation. Optimal: <100 mg/dL -Near Optimal/Above Optimal: 100-129 mg/dL -Borderline High: 130-159 mg/dL -High: 160-189 mg/dL -Very High: >=190 mg/dL Ordering Provider: OSAWLDO EGAN Report Released Date/Time: May 20, 2023 12:00 PM Reporting Lab: [address] [address] Performing Lab: [address] [address] ANION GAP 9 mmol/L 5-15 EGFR 77 mL/min > 60 GLUCOSE 146 mg/dL H 70-99 POTASSIUM 3.8 mmol/L 3.5-4.7 SODIUM 139 mmol/L 136-145 BILI,TOTAL 0.8 mg/dL 0.2-1.2 PROTEIN, TOTL 7.0 g/dL 5.7-8.2 ALBUMIN 4.5 g/dL 3.4-5.0 ALKAL PHOS 123 U/L H 45-117 ALT 56 U/L 10-65 AST 37 U/L 10-37 UREA NITROGEN 18 mg/dL 7-21 CALCIUM, TOTAL 9.3 mg/dL 8.7-10.4 CO2 26.0 mmol/L 21.0-32.0 CHLORIDE 104 mmol/L 98-109 CREATININE 1.09 mg/dL 0.67-1.17 Aug 05, 2023 01:24 PM [facility] THYROID CASCADE PANEL Specimen Type: SERUM Comment: PSA was performed on the [employer] Immunoassay Analyzer. Ordering Provider: Lencho PRADO Report Released Date/Time: May 20, 2023 02:36 PM Reporting Lab: [place] [phone] Performing Lab: [place] [address] TSH3 ULTRA EIA 2.474 u[IU]/mL 0.550-4.78 0 Aug 05, 2023 01:24 PM [facility] CBC W/DIFF Specimen Type: BLOOD No comment entered. Ordering Provider: OSWALDO EGAN Report Released Date/Time: May 20, 2023 12:00 PM Reporting Lab: [place] [address] Performing Lab: [place] [address] WBC 5.5 10*3/uL 4.0-11.0 RBC 4.99 10*6/uL 4.20-5.70 HGB 16.5 g/dL 13.0-17.0 HCT 46.7 40.0-51.0 MCV 93.6 fL 82-99 MCH 33.1 pg 27-34 MCHC 35.3 g/dL 31-37 MPV 8.8 fL 8-[address] 183 10*3/uL 130-400 RDW-CV 12.5 < 15.0 NEUTROPHILS% 66.6 LYMPHS% 21.5 MONOS% 8.9 EOS% 1.6 BASOS% 0.9 IG% 0.5 NEUTROPHILS# 3.7 10*3/uL 1.5-8.0 LYMPHS# 1.2 10*3/uL 1.0-4.0 MONOS# 0.5 10*3/uL 0.2-1.0 EOS# 0.1 10*3/uL 0-0.4 BASOS# 0.1 10*3/uL 0-0.2 IG# <0.1 10*3/uL 0-0.5 NRBC% 0.0 /100{WBCs} 0-0.2 NRBC# <0.01 10*3/uL 0-0.012 Aug 05, 2023 01:24 PM [facility] URINE ALBUMIN/CREAT (RAND URINE) Specimen Type: URINE No comment entered. Ordering Provider: Lencho PRADO Report Released Date/Time: May 20, 2023 02:36 PM Reporting Lab: [address] [address] [facility] [address] [facility] [address] URINE ALBUMIN(RAND URINE) 1.2 mg/dL <2.0 CREAT(RNDM URINE) 242.40 mg/dL 40-278 CREAT RATIO (RNDM URINE) 5.0 mg/g <30 Advance Directives: All historical and current Section Date Range: From patient's date of to the date document was created. This section includes ALL of a patient's completed or amended [place] Advance and Rescinded Directives. The entries below indicate that a directive exists for the patient, but an actual copy is not included with this document. The data comes from all [place] facilities. Date Advance Directives Provider Source Dec 31, 2023 ADVANCE DIRECTIVE DISCUSSION [facility] Radiology Reports: +/- 30 days of the encounter Radiology Reports For cases when an order for radiology services may have been completed prior to the date of the Encounter, the report list includes the Radiology Reports that were completed up to 30 days before dateof the Encounter. For cases when an order for radiology services may have been completed after the date of the Encounter, the report list also includes the Radiology Reports that were completed up to30 days after date of the Encounter. The data comes from all [place] treatment facilities. Date/Time Radiology Report Provider Source Jul 29, 2023 03:40 PM OUTSIDE STUDY GENE RAL RAD: LALI SUTHERLAND [id number] -1960 M Exm Date: JUL 29, 2023@15:40 Req Phys: FRANKY JOHNSON Loc: [facility] NAYA BARTON MD (Req'g Loc) Img Loc: OUTSIDE RADIOLOGY IMPORT EXAM Service: Unknown (Case [id number] COMPLETE) OUTSIDE STUDY GENERAL RAD (RAD Detailed) CPT:57129 Reason for Study: Exam imported from outside Clinical History: Original Data for Imported Study Patient Name: LALI SUTHERLAND Date: 1960 Sex: M Study Date: 07/29/23 Study Time: 03:40:51 Study Description: XR SHOULDER RIGHT 2 OR MORE VIEWS Referring Physician: KRYSTEN MURILLO Series 1: 1 CR file, description: W SHOULDER EXTERNAL Series 2: 1 CR file, description: W SHOULDER INTERNAL Series 3: 1 CR file, description: W SHOULDER Y-VIEW AP Series 4: 1 CR file, description: X SHOULDER AXILLARY [place]: [facility] Address: [address] [place] [id number] Report Status: Electronically Filed Date Reported: SEPTEMBER 02, 2023 Report: This procedure was performed [facility] of the [place]. If the images and associated report were provided, they can be viewed in [employer] and/or [facility] PACS System. Impression: This procedure was performed outside of the [facility]. If the images and associated report were provided, they can be viewed in [employer] and/or [facility] System. VERIFIED BY: / TYRON CRAWFORD
--- OUTSIDE RECORDS SUMMARY | 2024-06-02 06:04 | XMS_ITS | Encounter Summary ---
Author Organization [facility] Address [address] [place] [address] Care Team Providers Care Assistant Production Manager Name Role Phone Concepcion Zeng NP Unavailable Unavailable Gregory Hamlin Unavailable [phone] Chris Hamlin [employer] FOUNDER AND PRESIDENT Primary Care Provider Arcadio Gilmore DO Unavailable [phone] Enzo Gutierrez MD Unavailable Encounter Details Date Type Department Care Team (Late st Contact Info) Description 07/25/2022 Prep for Procedure [facility] Pre-Admission Testing [address] [place] [address] Nehemias Dejesus MD [address] [place] [address] Social History Tobacco Use Types Packs/Day Years Used Date Smoking Tobacco: Former Cigarettes 1 30 0 09/30/1981 - 10/01/2011 Smokeless Tobacco: Former Chew Quit: 2016 Alcohol Use Standard Drinks/Week Comments Yes 0 (1 standard drink = 0.6 oz pure alcohol) mix drink or beer -3 beer mixed 2-3 drinkd about 4 times week PHQ-2 Answer Date Recorded Patient Health Questionnaire-2 Score 0 04/08/2022 Sex and Gender Information Value Date Recorded Sex Assigned at Not on file Legal 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 de Phone Number [facility] [address] [place] [address], * (ABNORMAL) PROTIME/INR, VENOUS (08/13/2022 11:00 AM CDT) PROTIME 13.7(H) 9.8 - 12.5 SEC 08/13/2022 11:21 AM CDT [facility] INR 1.2 08/13/2022 11:21 AM CDT [facility] Comment: TREATMENT OR PROPHYLAXIS AGAINST: ?? THERAPEUTIC RANGE (INR): ?VENOUS THROMBOSIS ? 2.0-3.0 ?PULMONARY EMBOLUS ? 2.0-3.0 ?? MECHANICAL PROSTHETIC VALVES ? 2.5-3.5 08/13/2022 11:0 0 AM CDT us Nehemias Dejesus MD LABORATORY Final Resul t Performing Organization Address [facility] Co de Phone Number [facility] [address] [place] [address], * (ABNORMAL) COMPREHENSIVE METABOLIC PANEL (08/13/2022 11:00 AM CDT) SODIUM S/P/B 139 136 - 145 MMOL/L 08/13/2022 11:35 AM [facility] POTASSIUM S/P/B 4.1 3.6 - 5.0 MMOL/L 08/13/2022 11:35 AM [facility] CHLORIDE S/P/B 105 98 - 107 MMOL/L 08/13/2022 11:35 AM [facility] CO2 28.4 21.0 - 32.0 MMOL/L 08/13/2022 11:35 AM [facility] GLUCOSE 111(H) 70 - 99 MG/DL 08/13/2022 11:35 AM [facility] Comment: FASTING GLUCOSE 100 TO 125 MG/DL IS CONSISTENT WITH IMPAIRED FASTING GLUCOSE. FASTING GLUCOSE >125 MG/DL IS CONSISTENT WITH DIABETES. RANDOM GLUCOSE >200 MG/DL WITH HYPERGLYCEMIC SYMPTOMS IS CONSISTENT WITH DIABETES. PER ADA GUIDELINES BUN 20(H) 7 - 18 MG/DL 08/13/2022 11:35 AM [facility] CREATININE S/P/B 1.18 0.70 - 1.30 MG/DL 08/13/2022 11:35 AM [facility] CALCIUM S/P/B 8.7 8.5 - 10.1 MG/DL 08/13/2022 11:35 AM [facility] BILIRUBIN TOTAL S/P/B 0.6 0.2 - 1.0 MG/DL 08/13/2022 11:35 AM [facility] Comment: THIS ASSAY IS NOT RECOMMENDED FOR PATIENTS UNDERGOING TREATMENT WITH ELTROMBOPAG DUE TO THE POTENTIAL FOR FALSELY ELEVATED RESULTS. ALKALINE PHOSPHATASE S/P/B 130(H) 45 - 115 U/L 08/13/2022 11:35 AM [facility] AST 23 15 - 37 U/L 08/13/2022 11:35 AM CDT [facility] ALT 41 16 - 61 U/L 08/13/2022 11:35 AM T [facility] TOTAL PROTEIN S/P/B 6.6 6.4 - 8.2 G/DL 08/13/2022 11:35 AM T [facility] ALBUMIN S/P/B 3.7 3.4 - 5.0 G/DL 08/13/2022 11:35 AM T [facility] ANION GAP 5.6 5 - 15 MMOL/L 08/13/2022 11:35 AM T [facility] OSMOLALITY (CALC) 291 MOSM/KG 023 11:35 AM T [facility] GFR ESTIMATE 71(L) >90 ML/MIN/1. 73 M2 08/13/2022 11:35 AM T [facility] GFR NOTES GFR REFERENCE S: 08/13/2022 11:35 AM T [facility] Comment: THE ESTIMATED GFR IS CALCULATED USING THE 2020 CKD-EPI EQUATION. THE FOLLOWING CATEGORIES FOR GRADING RENAL FUNCTION ARE RECOMMENDED BY THE INTERNATIONAL SOCIETY OF NEPHROLOGY (KDIGO 2012 CLINICAL PRACTICE GUIDELINE). G1,NORMAL OR HIGH: >89 ml/min/1.73 m2 G2,MILDLY DECREASED: 60-89 ml/min/1.73 m2 G3A,MILDLY TO MODERATELY DECREASED: 45-59 ml/min/1.73 m2 G3B,MODERATELY TO SEVERELY DECREASED: 30-44 ml/min/1.73 m2 G4,SEVERELY DECREASED: 15-29 ml/min/1.73 m2 G5,KIDNEY FAILURE: <15 ml/min/1.73 m2 08/13/2022 11:0 0 AM CDT us Nehemias Dejesus MD LABORATORY Final Resul t [facility] [address] [place] [address], * (ABNORMAL) CBC W/DIFF AUTOMATED (08/13/2022 11:00 AM CDT) [facility] Signature WBC 6.05 4.00 - 10.80 x10'3/uL 08/13/2022 11:10 AM CDT [facility] RBC 5.07 4.50 - 6.10 x10'6/uL 08/13/2022 11:10 AM CDT [facility] HGB 15.7 13.0 - 18.0 G/DL 08/13/2022 11:10 AM CDT [facility] HCT 46.3 37.0 - 52.0 % 08/13/2022 11:10 AM CDT [facility] MCV 91.3 78.0 - 100.0 FL 08/13/2022 11:10 AM CDT [facility] MCH 31.0 27.0 - 31.0 PG 08/13/2022 11:10 AM CDT [facility] MCHC 33.9 33.0 - 36.0 G/DL 08/13/2022 11:10 AM T [facility] RDW 12.6 11.5 - 14.5 % 08/13/2022 11:10 AM CDT [facility] PLT 185 150 - 350 x10'3/uL 08/13/2022 11:10 AM CDT [facility] MPV 8.3 7.4 - 10.4 FL 08/13/2022 11:10 AM T [facility] DIFFERENTIAL TYPE AUTOMATED 08/13/2022 11:10 AM T [facility] SEG NEUTROPHILS 67.2 % 11:10 AM CDT [facility] LYMPHOCYTES 19.8 % 08/13/2022 11:10 AM CDT [facility] MONOCYTES 8.6 % 08/13/2022 11:10 AM CDT [facility] EOSINOPHILS 2.6 % 08/13/2022 11:10 AM CDT [facility] BASOPHILS 1.0 % 08/13/2022 11:10 AM CDT [facility] IMMATURE GRANS % 0.8 % 08/14/19 11:10 AM CDT [facility] NRBC 0.0 % 08/13/2022 11:10 AM CDT [facility] ABS. NEUTROPHILS 4.06 1.60 - 8.30 x10'3/uL 08/13/2022 11:10 AM CDT [facility] ABS. LYMPHOCYTES 1.20 0.80 - 4.70 x10'3/uL 08/13/2022 11:10 AM T [facility] ABS. MONOCYTES 0.52 0.00 - 1.50 x10'3/uL 08/13/2022 11:10 AM CDT [facility] ABS. EOSINOPHILS 0.16 0.00 - 0.40 x10'3/uL 08/13/2022 11:10 AM T [facility] ABS. BASOPHILS 0.06 0.00 - 0.20 x10'3/uL 08/13/2022 11:10 AM T [facility] ABS. IMMATURE GRANULOCYTES 0.05(H) 0.00 - 0.03 x10'3/uL 08/13/2022 11:10 AM T [facility] ABS. NUCLEATED RBC'S 0.00 0.00 x10'3/uL 08/13/2022 11:10 AM T [facility] 08/13/2022 11:0 0 AM CDT Nehemias Dejesus MD LABORATORY Final Resul t [facility] [address] [place] [address], [place] [phone] * XR CHEST PA+LAT (07/29/2022 2:09 PM CDT) Anatomical Region Laterality Modality Chest Radiographic Tori ging 07/29/2022 3:20 PM CDT Impressions 07/29/2022 3:20 PM CDT IMPRESSION: Negative chest Ordered By: NEHEMIAS DEJESUS Interpreted By: Reagan Patel MD, 07/29/2022 3:20 PM Narrative 07/29/2022 3:20 PM CDT 2 VIEWS OF THE CHEST Clinical history: Shoulder pain Comparison: None 2 views of the chest demonstrate the cardiac silhouette to be normal in size. The pulmonary vessels are normally distributed. The Lungs are clear. No consolidations or effusions are seen. Procedure Note Reagan Patel MD - 07/29/2022 2 VIEWS OF THE CHEST Clinical history: Shoulder pain Comparison: None 2 views of the chest demonstrate the cardiac silhouette to be normal insize. The pulmonary vessels are normally distributed. The Lungs are clear.No consolidations or effusions are seen. IMPRESSION: Negative chest Ordered By: NEHEMIAS DEJESUS Interpreted By: Reagan Patel MD, 07/29/2022 3:20 PM Nehemias Dejesus MD GENERAL IMAGING Final Resul t documented in this encounter Visit Diagnoses Diagnosis Preoperative testing- Primary Preoperative examination, unspecified Anticoagulation adequate Encounter for long-term (current) use of anticoagulants Complete tear of right rotator cuff Complete rupture of rotator cuff Preoperative testing Preoperative examination, unspecified Complete tear of right rotator cuff Complete rupture of rotator cuff documented in this encounter Additional Health Concerns Assessment Noted Time PHQ-9 Depression Total Score: 0 06/12/19 22 2:09 PM [employer]ARDING [employer] documented as of this encounter Care Teams Assistant Production Manager Relationship Specialty Start Date End Date Chris Hamlin NP [address] [place], [place] [address], [place] [address] PCP - General NURSE PRACTITIONER 04/08/22 Concepcion Zeng NP Referring Physician CARDIOVASCULAR DISEASE 10/09/17 Gregory Hamlin PA PHYSICIAN COLLEGE ATHLETIC DIRECTOR 01/17/22 Arcadio Gilmore DO [address] [place], [place] [address], [place] [address] Consulting Physician CARDIOVASCULAR DISEASE 05/30/22 Enzo Gutierrez MD [facility] [address] [place] [address] Consulting Physician INTERVENTIONAL CARDIOLOGY 11/21/22 documented as of this encounter
--- OUTSIDE RECORDS SUMMARY | 2024-06-02 06:04 | XMS_ITS | Encounter Summary ---
Author Name [facility] [place] [facility] [place] Address [address] [place] [address] Care Team Providers Care Game Room Attendant Name Role Phone FARIBA CHEUNG Primary Care Provider Unavailabl e Selected Encounter This section includes the information on record at [place] for the Encounter. Date/Time Encounter Type Encounter Description Reason Pro vider Source May 27, 2024 10:44 AM Outpatient Encounter COMMUNITY CARE CONSULT IHE Encounter Template Text not used by VA Plan of Treatment: Future Appointments (+ 6 months) and Future Tests (+/- 45 days) The Plan of Treatment section includes future care activities for the patient from all [facility] treatmentfacilities. This section includes future appointments and future orders which are active, pending or scheduled. Future Appointments This section includes appointments that were scheduled to occur 6 months from the date of the Encounter, up to a maximum of 20 appointments. The data comes from all [place] treatment facilities. Appointment Date/Time Appointment Type Appointme nt Facility Name Oct 05, 2024 01:00 PM AMBULATORY - NONE [facility] Oct 19, 2024 02:00 PM AMBULATORY - NONE [facility] Active, Pending, and Scheduled Orders This section includes a listing of several types of active, pending, and scheduled orders, including clinic medications orders, diagnostic test orders, procedure orders and consult orders; where the start date of the order is 45 days before the date of the Encounter or 45 days after the date of theEncounter. The data comes from all [place] treatment facilities. Test Date/Time Test Type Test Details Facility Name May 25, 2024 03:39 PM Consult Order COMMUNITY CARE-ORTHO GENERAL [employer] [facility] [facility] May 25, 2024 03:39 PM Consult Order COMMUNITY CARE-ORTHO GENERAL [employer] [facility] Jun 01, 2024 02:42 PM Consult Order CARDIOLOGY OUTPATIENT [employer] [facility] Jun 01, 2024 02:42 PM Consult Order CARDIOLOGY OUTPATIENT [employer] [facility] Lab Results: +/- 30 days of the encounter This section includes the Chemistry and Hematology Lab Results on record with [place] for the patient. Radiology Reports and Pathology Reports are provided separately, in subsequent sections. Lab Results This section contains the Chemistry/Hematology Results that were resulted 30 days before or 30 daysafter the date of the Encounter. Date/Time Source Result Type Result - Unit Interpretation Reference Range Comment May 27, 2024 02:24 PM [facility] PTH INTCT Specimen Type: PLASMA No comment entered. Ordering Provider: Crystal UP Report Released Date/Time: May 11, 2024 04:06 PM Reporting Lab: [facility] [address] [facility] [address] Performing Lab: [facility] [address] [place] [phone] PTH INTCT 83.4 pg/mL H 18.4-80.1 May 27, 2024 02:24 PM [facility] VITAMIN D 25-HYDROXY Specimen Type: SERUM Comment: Deficiency <20, Insufficiency 20-30, Sufficiency 30-100, Toxicity >100 ng/mL Ordering Provider: FARIBA CHEUNG Report Released Date/Time: Apr 23, 2024 08:34 AM Reporting Lab: [facility] [address] [facility] [address] Performing Lab: [facility] [address] [place] [address] VITAMIN D 25-HYDROXY 51.70 ng/mL 30-100 May 27, 2024 02:24 PM [facility] URINE ALBUMIN/CREAT (RAND URINE) Specimen Type: URINE No comment entered. Ordering Provider: Crystal UP Report Released Date/Time: May 11, 2024 04:06 PM Reporting Lab: [facility] [address] [facility] [address] Performing Lab: [address] [address] URINE ALBUMIN(RAND URINE) 1.5 mg/dL <2.0 CREAT(RNDM URINE) 210.70 mg/dL 40-278 CREAT RATIO (RNDM URINE) 7 mg/g <30 May 27, 2024 02:24 PM [facility] COMPREHENSIVE PNL Specimen Type: PLASMA Comment: eGFR was calculated using the CKD-EPI Creatinine (2020) equation. Ordering Provider: FARIBA CHEUNG Report Released Date/Time: Apr 23, 2024 08:34 AM Reporting Lab: [address] [address] Performing Lab: [address] [address] ANION GAP 12 mmol/L 5-15 EGFR 75 [...] and tobacco- related health factors from the [place] facility where the Encounter took place. Current Smoking Status This section includes the most current smoking, or tobacco-related health factor, from the [place] facility where the Encounter took place. Date/Time Current Smoking Status Comment Kyra ity Dec 10, 2023 11:00 AM [place]-TOBACCO FORMER USER [facility] Tobacco Use History This section includes a history of the smoking, or tobacco-related health factors, that were collected on or before the date of the Encounter. The data comes from the [place] facility where the Encounter took place. Date/Time Smoking Status/Tobacco Use Comment F acility Dec 10, 2023 11:00 AM [place]-TOBACCO QUIT 15 YRS OR MORE [facility] Nov 27, 2018 01:03 PM [place]-TOBACCO FORMER USER [facility] Nov 27, 2018 01:03 PM VA-TOBACCO QUIT 1 TO < 5 YRS [facility] Advance Directives: All historical and current Section Date Range: From patient's date of to the date document was created. This section includes ALL of a patient's completed or amended [place] Advance and Rescinded Directives. The entries below indicate that a directive exists for the patient, but an actual copy is not included with this document. The data comes from all [place] facilities. Date Advance Directives Provider Source Dec 31, 2023 ADVANCE DIRECTIVE DISCUSSION Martin [facility] Encounter Notes: All associated encounter notes This section contains the clinical notes associated to the Encounter. Date/Time Encounter Note(s) Provider Source May 27, 2024 10:44 AM NONVA NOTE: [facility] TITLE: [facility]-ADMINISTRATIVE REQUEST STANDARD TITLE: NONVA NOTE DATE OF NOTE: MAY 27, 2024@10:44 ENTRY DATE: MAY 27, 2024@10:44:40 AUTHOR: ARIEL BACK COSIGNER: URGENCY: STATUS: COMPLETED [place], returning call to [facility] to speak with the [facility] nurse for his Ortho with out patient. is requesting a call back at this time to discuss this consult. contact number: [phone] Title I Teacher provided all the inforamtion that the had at time of call. /craig/ ARIEL BACK [facility] Signed: 05/27/2024 10:46 Receipt Acknowledged By: 05/27/2024 11:19 /craig/ RITU SERRANO,GEMA REGISTERED NURSE ARIEL BACK [facility]
--- OUTSIDE RECORDS SUMMARY | 2024-06-02 06:04 | XMS_ITS | Encounter Summary ---
Author Name [facility] [place] Organization [facility] [place] Address [address] [place] [address] Care Team Providers Care Binder Chainstitch Name Role Phone FARIBA CHEUNG Primary Care Provider Unavailabl e Selected Encounter This section includes the information on record at [place] for the Encounter. Date/Time Encounter Type Encounter [...] this document. The data comes from all [place] facilities. Date Advance Directives Provider Source Dec 31, 2023 ADVANCE DIRECTIVE DISCUSSION [facility]
--- OUTSIDE RECORDS SUMMARY | 2024-06-02 06:04 | XMS_ITS | Clinical Summary ---
Author Organization [facility] Address [address] [place] [address] Phone Care Team Providers Care Alligator Trapper Name Role Phone Chris Hamlin APRN, JENI Primary Care Provid er Allergies Active Allergy Reactions Criticality Noted Date Comments Statins Unknown Low 08/21/2021 Info from 06/12/21 neuro O.V. Medications tamsulosin (FLOMAX) 0.4 MG Capsule TAKE ONE CAPSULE BY MOUTH EVERY EVENING 30 MINUTES AFTER A MEAL - FOR PROSTATE 1 Active apixaban (ELIQUIS) 5 MG Tablet TAKE ONE TABLET BY MOUTH TWICE A DAY 8 Active dilTIAZem CD (CARDIZEM CD) 240 MG CAPSULE SR 24 HR TAKE ONE CAPSULE BY MOUTH EVERY DAY FOR BLOOD PRESSURE/HEART 1 Active ergocalciferol (VITAMIN D) 14883 UNIT Capsule TAKE ONE CAPSULE BY MOUTH ONCE WEEKLY ON FRIDAY FOR VITAMIN D- SUPPLEMENT 1 Active potassium chloride SA (KLORCON M) 20 MEQ Tablet Controlled Release Take 1 Tablet by mouth. Active tiZANidine (ZANAFLEX) 4 MG Tablet TAKE ONE TABLET BY MOUTH AT BEDTIME NEEDED MUSCLE RELAXER 1 Active lisinopril (PRINIVIL, ZESTRIL) 10 MG Tablet Take 10 mg by mouth daily. Active venlafaxine (EFFEXOR-XR) 150 MG CAPSULE SR 24 HR Take 150 mg by mouth. Active busPIRone (BUSPAR) 5 MG Tablet TAKE ONE TABLET BY MOUTH TWICE A DAY FOR ANXIETY 12/22/202 1 Active Glucosamine Sulfate 1000 MG Tablet Take 1 Tablet by mouth. Active melatonin 3 MG Tablet Take 3 mg by mouth. Active Bictegravir-Emtr icitab-Tenofov (BIKTARVY PO) Take by mouth daily. Active pantoprazole (PROTONIX) 40 MG Tablet Delayed Response Take 1 tab by mouth at bedtime. 30 Tablet 3 2 Active HYDROcodone-acet aminophen (NORCO) 7.5-325 MG TabletIndication s:Left shoulder pain, unspecified chronicity 1 tablet by mouth every 6 hours PRN pain. No more than 4 tablets in 24 hours. 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 Gender Identity Not on file Sexual Orientation Not on file Last Filed Vital Signs Vital Sign Reading Time Taken Comments Blood Pressure 130/70 09/11/2021 11:00 AM CDT Pulse 90 09/11/2021 11:00 AM CDT Temperature 36.8 ??C (98.2 ??F) 09/11/2021 11:00 AM C DT Respiratory Rate 16 08/22/2021 1:28 PM CDT Oxygen Saturation 93% 08/22/2021 1:28 PM CDT Inhaled Oxygen Concentration - - Weight 122.5 kg (270 lb) 09/11/2021 11:00 AM CDT Height 190.5 cm (6' 3 ) 09/11/2021 11:00 AM CDT Body Mass Index 33.75 09/11/2021 11:00 AM CDT Plan of Treatment Health Maintenance Due Date Last Done Comments Hepatitis C Virus (HCV) Screening 1962 Colonoscopy 2007 Colorectal Cancer Screening 2007 Cologuard 02/25/2012 Immunochemical Fecal Occult Blood 02/25/2012 PSA Discussion 2017 Zoster Immunization (2 of 2) 05/29/2021 04/03/2021 Influenza Immunization (#1) 2023 12/0 10/2020, 01/26/2020, 01/26/2019, Additional history exists SARS-COV-2 Immunization (2 - season) 2023 07/13/2020 Respiratory Syncytial Virus (RSV) Immunization (Adult) (1 - 1-dose 75+ series) 2037 DTaP/Tdap/Td Immunization Discontinued 12/16/2013, 04/1997 TdaP Immunization Completed 12/16/2013 Pneumococcal Immunization (50+ years) Completed 05/09/2015, 06/15/2014, 11/04/2001 Pneumococcal Immunization Combined Discontinued 05/09/2015, 06/15/2014, 11/04/2001 Meningococcal Immunization (ACWY) Aged Out 09/22/2018 No longer eligible based on patient's age to complete this topic Hepatitis B Immunization Aged Out No longer eligible based on patient's age to complete this topic Rotavirus Immunization Aged Out No lo nger eligible based on patient's age to complete this topic Medical Devices Implanted Type Area Drop Hammer Setter Up Device Identifier Shelf Expiration Date Model / Serial / Lot Quattro Link K[employer] [place], 4.5mm [place]ek [place] Implanted:Qty: 1 on 08/22/2021 by Wilman Tapia MD at [facility] Left: Shoulder [employer] 01/29/2026 -[id number] / / [id number] Insurance [facility] Care Teams Alligator Trapper Relationship Specialty Start Date End Date Chris Hamlin APRN, ASSISTANT TECHNICIAN [address] [place] [id number] PCP - General Advanced Practice Nurse 07/23/21
--- OUTSIDE RECORDS SUMMARY | 2024-06-02 06:04 | XMS_ITS | Encounter Summary ---
Author Name [facility] Organization [facility] [place] [facility] [place] Address [address] [place] [address] Care Team Providers Care Director Building Name Role Phone FARIBA CHEUNG Primary Care Provider Unavailabl e Selected Encounter This section includes the information on record at [place] for the Encounter. Date/Time Encounter Type Encounter Description Reason Pro vider Source Apr 08, 2024 01:34 PM Outpatient Encounter GENERAL INTERNAL MEDICINE IHE Encounter Template Text not used by [place] Plan of Treatment: Future Appointments (+ 6 months) and Future Tests (+/- 45 days) The Plan of Treatment section includes future care activities for the patient from all [place] treatmentfacilities. This section includes future appointments and future orders which are active, pending or scheduled. Future Appointments This section includes appointments that were scheduled to occur 6 months from the date of the Encounter, up to a maximum of 20 appointments. The data comes from all [place] treatment facilities. Appointment Date/Time Appointment Type Appointme nt Facility Name Apr 14, 2024 01:30 PM AMBULATORY - NONE [facility] May 11, 2024 01:30 PM AMBULATORY - NONE [facility] May 27, 2024 02:00 PM AMBULATORY - MEDICINE [facility] May 27, 2024 02:40 PM AMBULATORY - NONE [facility] Oct 05, 2024 01:00 PM AMBULATORY - NONE [facility] Lab Results: +/- 30 days of the encounter This section includes the Chemistry and Hematology Lab Results on record with [place] for the patient. Radiology Reports and Pathology Reports are provided separately, in subsequent sections. Lab Results This section contains the Chemistry/Hematology Results that were resulted 30 days before or 30 daysafter the date of the Encounter. Date/Time Source Result Type Result - Unit Interpretation Reference Range Comment Mar 30, 2024 01:37 PM [facility] HIV PCR QUANT (PANEL) Specimen Type: PLASMA [...] Mar 12, 2024 08:39 AM Reporting Lab: [facility] [address] [facility] [address] Performing Lab: [facility] [address] [place] [address] HIV PCR QUANT(copies/mL ) <20 {copies}/mL 0-19 HIV PCR (log) <1.30 0.00-1.29 Mar 30, 2024 01:37 PM [facility] LYMPH SUBSET PANEL 4 ([id number])-[facility] Specimen Type: BLOOD Comment: INTERPRETIVE INFORMATION: Lymphocyte Subset 4, Pct. and Ratio, WB The CD4 cells are [place] Swan T-cells expressing both CD3 and CD4. The [...] developed and its performance characteristics determined by [employer]. It has not been cleared or approved by the [place] Food and Drug Administration. This test was performed in a CLIA certified laboratory and is intended for clinical purposes. Performed By: [facility] [employer] [address] [place] [address] Riveting Machine Operator: Sabino Diaz MD, PhD CLIA Number: [id number] Ordering Provider: OSWALDO EGAN Report Released Date/Time: Mar 12, 2024 08:39 AM Reporting Lab: [address] [address] Performing Lab: [facility] [address] [facility] [address] ABSOLUTE CD 3 1191 {cells}/uL [phone] ABSOLUTE CD 4 HELPER 634 {cells}/uL 430-1800 ABSOLUTE CD 8 SUPPRESSOR 557 {cells}/uL 210-1200 % CD 3 POS. LYMPH 84 62-87 % CD 4 POS. LYMPH 45 32-64 % CD 8 POS. LYMPH 39 15-46 CD4/CD8 RATIO 1.15 {ratio} 0.80-3.90 LYMPH SUBSET PANEL 4 INFO See Note Mar 30, 2024 01:37 PM [facility] PHOS Specimen Type: PLASMA Comment: Low-risk levels [...] Mar 12, 2024 08:39 AM Reporting Lab: [address] [address] Performing Lab: [address] [address] PHOS 2.9 mg/dL 2.4-5.1 Mar 30, 2024 01:37 PM [facility] VITAMIN D 25-HYDROXY Specimen Type: SERUM Comment: Deficiency <20, Insufficiency 20-30, Sufficiency 30-100, Toxicity >100 ng/mL Ordering Provider: OSWALDO EGAN Report Released Date/Time: Mar 12, 2024 08:39 AM Reporting Lab: [address] [address] Performing Lab: [address] [address] VITAMIN D 25-HYDROXY 48.30 ng/mL 30-100 Mar 30, 2024 01:37 PM [facility] LIPID PNL Specimen Type: PLASMA Comment: Low-risk [...] Mar 12, 2024 08:39 AM Reporting Lab: [address] [address] Performing Lab: [address] [address] DIR. HDL 53 mg/dL L >=60 TRIGLYCERIDES 177 mg/dL H See Comment DIR LDL canc CHOL 245 mg/dL H See Comment LDL (CALCULATED) 157 mg/dL H See Comment Mar 30, 2024 01:37 PM [facility] COMPREHENSIVE PNL Specimen Type: PLASMA Comment: Low-risk [...] Mar 12, 2024 08:39 AM Reporting Lab: [address] [address] Performing Lab: [address] [address] ANION GAP 7 mmol/L 5-15 EGFR 62 [...] H 0.73-1.18 Mar 30, 2024 01:37 PM [facility] CBC W/DIFF Specimen Type: BLOOD No comment entered. Ordering Provider: OSWALDO EGAN Report Released Date/Time: Mar 12, 2024 08:39 AM Reporting Lab: [address] [address] Performing Lab: [address] [address] WBC 6.2 10*3/uL 4.0-11.0 RBC 4.94 10*6/uL [...] 31, 2023 ADVANCE DIRECTIVE DISCUSSION [facility] Encounter Notes: All associated encounter notes This section contains the clinical notes associated to the Encounter. Date/Time Encounter Note(s) Provider Source Apr 06, 2024 01:34 PM NONVA NOTE: LOCAL TITLE: COMMUNITY CARE-SLICK SELF PRESENTING CARE COORD PLAN STANDARD TITLE: NONVA NOTE DATE OF NOTE: APR 06, 2024@13:34 ENTRY DATE: APR 08, 2024@13:34:55 AUTHOR: AARTI SCOTT EXP COSIGNER: URGENCY: STATUS: COMPLETED COMMUNITY CARE-SLICK SELF PRESENTING CARE COORD PLAN [address] Emergency Notification Intake Date Presenting to the Facility: Mar Method of Contact: Notified from [employer] worklist Notification ID: [id number] [facility] Referral #: [id number] [facility] Hospital Name: Hospital: [facility] Address: [facility] [address] City: [place] State: [place] Zip Code: [address] [facility] Facility Point of Contact: Name: SAWYER LAGOS Chief complaint: chest pain Primary Diagnosis: Disposition Discharged Date of discharge: Mar Discharge to home Records req'd by fax. Status: Closed - Approved for [id number] SCOTT [employer]PART[employer] SUPERVISOR Signed: 04/08/2024 13:38 04/12/2024 ADDENDUM STATUS: COMPLETED Records r/t this episode of care sent to [facility] for scanning. /danny SCOTT [employer] DEPARTMENT SUPERVISOR Signed: 04/12/2024 16:56 AARTI SCOTT [facility]
[2024-06-02 10:00] VITALS: BP 141/98; PULSE 67; RESP 16; O2SAT 95
--- NOTE | 2024-06-02 11:31 | ED.GENADULT ---
HPI - General Adult General Chief complaint: Extremity Injury, Lower Stated complaint: L KNEE PAIN AFTER INJURY Time Seen by Provider: 06/02/24 11:04 History of Present Illness HPI narrative: patient is a 64-year-old gentleman who presents emergency department chief complaint of left knee pain. Patient reports about 10 days ago he slipped on the ice and hit his knee against is she. Patient reports he was seen at urgent care had plain film x-rays and told that the pain was secondary to arthritis. The patient states the swelling is starting to go down and reports that he is still having pain with range of motion. The patient does report that he has orthopedic surgeon at [facility] that he plans on following up with the middle of next month. Related Data Home Medications ?Medication ?Instructions ?Recorded ?Confirmed ?Last Taken ?Type apixaban 5 mg tablet 5 mg PO BID 02/25/24 02/25/24 02/25/24 History tamsulosin 0.4 mg capsule 0.4 mg PO DAILY 02/25/24 02/25/24 02/25/24 History Allergies Allergy/AdvReac Type Severity Reaction Status Date / Time Qecccbx-HFK-WdH Reductase AdvReac Muscle Pain Verified 06/02/24 06:00 Inhibitor Review of Systems Review of Systems: A 10 system review of systems was completed on the patient and is negative except for what is stated in the HPI. Nursing and ancillary documentation was reviewed. [facility]LY [facility] Past Medical History Medical History Urinary hesitancy GERD (gastroesophageal reflux disease) HLD (hyperlipidemia) HTN (hypertension) Atrial fibrillation SVT (supraventricular tachycardia) Surgical History Surgical History History of lumbar fusion L3-L5 History of rotator cuff surgery R 11/2023, L 2021 History of fracture of left hip miriam implant, 2010 History of cardiac radiofrequency ablation Family History Family History Father Acute myocardial infarction Hypertension Sibling Hypertension Social History Social History Smoking packs per day: 1 Smoking cigarettes per day: 20.0 Years smoked: 40 Smoking pack-years: 40.00 Smoking status: Former smoker Tobacco type: cigarettes Second hand tobacco smoke exposure: Yes Additional smoking assessment comments: quit 2004 Alcohol intake: current Substance use: never Do You Feel Safe in your Home?: Yes Lack of Transportation: No Lack of Food: Never True Current Housing: I Have Housing Concerned About Future Housing: No Difficulty Paying Gas/Electric Bills: No Difficulty Paying for Meds: No Currently Unemployed: No Education: Bachelor's Degree Difficulty w/ Childcare or Family Care: No Spiritual care concerns: No Exam Narrative: GENERAL: Well-appearing, well-nourished, and in no acute distress. HEAD: Normocephalic, atraumatic. EYES: PERRLA and EOMI. ENT: Nares clear, no rhinorrhea or epistaxis. Mucous membranes moist. NECK: Supple. CHEST: Clear to auscultation. No respiratory distress. HEART: Regular rate and rhythm. No murmur heard. Normal peripheral pulses. ABDOMEN: Soft, nontender, nondistended, normal active bowel sounds. EXTREMITIES: Normal range of motion Tenderness to palpation in the left knee. No edema. SKIN: Warm, dry, no rash. NEURO: No focal deficits. Alert and oriented x3. PSYCH: Normal mood and affect. Course Vital Signs Vital signs: Vital Signs Temperature 36.6 C 06/02/24 06:01 Pulse Rate 73 06/02/24 06:01 Respiratory Rate 18 06/02/24 06:01 Blood Pressure 125/96 H 06/02/24 06:01 Pulse Oximetry 97 06/02/24 06:01 Oxygen Delivery Room Air 06/02/24 06:01 Temperature 36.6 C 06/02/24 06:01 Pulse Rate 67 06/02/24 10:00 Respiratory Rate 16 06/02/24 10:00 Blood Pressure 141/98 H 06/02/24 10:00 Pulse Oximetry 95 06/02/24 10:00 Oxygen Delivery Room Air 06/02/24 06:01 Medical Decision Making [facility] Narrative Medical decision making narrative: differential diagnosis includes fracture, contusion, membranes plain film x-rays showed evidence of arthritis patient be placed in a knee immobilizer and the patient is on apixaban so will be given a short prescription for [place] as the tramadol that he was prescribed urgent care is not providing adequate pain control. Vital Signs Vital Signs: Vital Signs Temperature 36.6 C 06/02/24 06:01 Pulse Rate 73 06/02/24 06:01 Respiratory Rate 18 06/02/24 06:01 Blood Pressure 125/96 H 06/02/24 06:01 Pulse Oximetry 97 06/02/24 06:01 Oxygen Delivery Room Air 06/02/24 06:01 Temperature 36.6 C 06/02/24 06:01 Pulse Rate 67 06/02/24 10:00 Respiratory Rate 16 06/02/24 10:00 Blood Pressure 141/98 H 06/02/24 10:00 Pulse Oximetry 95 06/02/24 10:00 Oxygen Delivery Room Air 06/02/24 06:01 Discharge Plan Discharge Clinical Impression: Acute internal derangement of left knee Patient Disposition: Home, Self-Care Condition: Stable Instructions: Antibiotic Form, Knee Pain (ED), Knee Immobilizer (ED) Additional Instructions: please follow-up with orthopedics either your [facility] orthopedic surgeon or our orthopedic surgeon Patient Language: Ivorian Prescriptions: New hydrocodone-acetaminophen 5-325 mg tablet 1 tablet PO Q6H PRN (Reason: pain) 3 Days Qty: 12 0RF No Action metoprolol succinate 50 mg tablet extended release 24 hr 50 mg PO DAILY Qty: 30 0RF Rx Instructions: Take IN ADDITION to the 50mg daily you are already taking, for total of 50 mg twice a day. tamsulosin 0.4 mg Capsule 0.4 mg PO DAILY apixaban 5 mg Tablet 5 mg PO BID diltiazem HCl 180 mg Capsule,Ext.Rel 24h Degradable 360 mg PO QAM Qty: 90 0RF Follow-up/Referrals: Patrick Muñoz MD [Physician] - [facility] [Primary Care Provider] - Time of Disposition: 11:39
[2024-06-02] MEDS: KETOROLAC 30 MG/ML VIAL (*BKC) IM (11:38)
[2024-06-02 12:21] VITALS: BP 137/94; PULSE 72; RESP 18; TEMP 36.6; O2SAT 98
--- OUTSIDE RECORDS SUMMARY | 2024-06-02 13:03 | XMS_ITS | Clinical Summary ---
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 angina pectoris Take 1 tablet (20 mg total) by mouth daily 90 tablet 3 03/18/20 24 Active Active Problems Problem Noted Date Diagnosed Date NSTEMI (non-ST elevated myocardial infarction) ( [facility]) 11/24/2023 ARIADNA (acute kidney injury) 11/24/2023 [...] Type Department Care Team Description 05/31/2024 Telephone [facility] Orthopedics and Sports Medicine [address] [facility] [address] [place] [address] Altaf Naidu MD 03/24/2024 Telephone [facility] Cardiology [address] [facility] 8th [place] [address] [place] [address] Danielle Meek 03/18/2024 2:00 PM SUPERVISOR SCREEN PRINTING Office Visit [facility] Medical [facility] Cardiology [address] [facility] [address] [place] [phone] Kerry Joseph NP PSVT (paroxysmal supraventricular tachycardia) ([facility]); Paroxysmal atrial fibrillation (CMS/HCC) ([facility]); Coronary artery disease involving kaguy[place] coronary artery of kaguy[place] heart without angina pectoris; Orthostatic syncope; Hospital discharge follow-up; Lipid screening 03/18/2024 Telephone [facility] Cardiology [address] [facility] [address] [place] [phone] Kerry Joseph NP 03/02/2024 Orders Only [facility] Cardiology [address] [facility] [address] [place] [phone] Sarah Wong NP from Last 3 [...] on file Legal Sex Male 9:53 AM SUPERVISOR SCREEN PRINTING Gender Identity Not on file Sexual Orientation Not on file Obstetrics History Last Filed Vital Signs Vital Sign Reading Time Taken Comments Blood Pressure 122/84 03/18/2024 2:02 PM SUPERVISOR SCREEN PRINTING Pulse 89 03/18/2024 2:02 PM SUPERVISOR SCREEN PRINTING Temperature 36.3 ??C (97.4 ??F) 12/24/2023 3:00 PM CD T Respiratory Rate 18 12/24/2023 3:00 PM CDT Oxygen Saturation 95% 03/18/2024 2:02 PM SUPERVISOR SCREEN PRINTING Inhaled Oxygen Concentration - - Weight 117.5 kg (259 lb) 03/18/2024 2:02 PM SUPERVISOR SCREEN PRINTING Height 190.5 cm (6' 3 ) 03/18/2024 2:02 PM SUPERVISOR SCREEN PRINTING Body Mass Index 32.37 03/18/2024 2:02 PM SUPERVISOR SCREEN PRINTING Plan of Treatment Health Maintenance Due Date [...] 02/18/2022, 04/03/2021 Medical Devices Implanted Type Area Irb Compliance Coordinator Device Identifier Shelf Expiration Date Model / Serial / Lot [facility] [place] Suture Alphavent 4.75mm With 3-Strands 1.4mm Xbraid Tt [id number] - [id number] Implanted:Qty: 1 on 12/24/2023 by Altaf Naidu MD at [facility] Right: Shoulder [facility] [facility] [id number] 10/23/2024 [id number] / / [id number] [employer] Corkscrew L4.75 Mr Tape Full Thread [place] Suture Biocomposite Sterile Disposable Latex Free [id number] - [id number] Implanted:Qty: 1 on 12/24/2023 by Altaf Naidu MD at [facility] Right: Shoulder [employer] [id number] 08/25/2026 [id number] / / [id number] Procedures Procedure Name Priority Date/Time Associated Diagnosis Comments POCT LIPID PANEL Routine 03/18/2024 2:14 PM SUPERVISOR SCREEN PRINTING Lipid screening URINALYSIS AND REFLEX TO MICROSCOPIC AND CULTURE Routine 11/23/2023 6:08 PM CDT from Last 3 Months or Most Recently Relevant to Health Maintenance Results * POCT lipid panel (03/18/2024 2:14 PM SUPERVISOR SCREEN PRINTING) Cholesterol, POC 248 mg/dL HDL, POC 41 mg/dL Triglycerides, POC 161 mg/dL LDL Cholesterol POC 175 mg/dL Chol/HDL Ratio, POC 4.3 Non-HDL Cholesterol, POC 207 mg/dL Cholesterol Total, POC 248 mg/dL Capillary blood 03/18/2024 2 :14 PM SUPERVISOR SCREEN PRINTING Kerry Joseph NP POINT OF CARE TEST [...] tendency for uric acid stone formation. Source: Cequint Current Interpretive Data was last revised on [...] microscopic UA and culture not met. CANDIDO CODRERO (LEO) Urine 11/23/2023 6:08 PM CDT 11/23/2023 6:17 PM CDT us Lul Rahman MD LAB MICROBIOLOGY - GENERAL OR DERABLES Final Result CANDIDO GIL (LEO) 1 [facility] Department [place] [address] from Last 3 Months or Most Recently Relevant to Health Maintenance Insurance [facility] Advance Directives For more information, please contact: [phone] * Full Code (Latest Code Status on File) Date Activated Date Inactivated Comments 11/23/2023 4:47 AM 11/24/2023 11:08 PM Care Teams Edger Feeder Relationship Specialty Start Date End Date Tiffany Ugarte MD PCP - General Immigration Case Worker 06/01/24
--- OUTSIDE RECORDS SUMMARY | 2024-06-02 13:03 | XMS_ITS | Referral Summary ---
Author Organization [facility] Medical Office Building B Address [address] [place] [address] Care Team Providers Care Traffic Technician Name Role Phone Administration, Tiffany ALLEN Primary Care Provide r Unavailable Encounters Date Type Department Care Team Description 05/31/2024 Telephone [facility] Medical [facility] Orthopedics and Sports Medicine [address] [facility] [address] [place] [address] Altaf Naidu MD 03/24/2024 Telephone [facility] Cardiology [address] [facility] 8[address] [place] [address] [place] [phone] Danielle Meek 03/18/2024 Telephone [facility] Cardiology [address] [facility] [address] [place] [address] Kerry Joseph NP 03/18/2024 2:00 PM CONTACT ACID PLANT OPERATOR Office Visit [facility] Cardiology [address] [facility] [address] [place] [address] Kerry Joseph NP PSVT (paroxysmal supraventricular tachycardia) (HCC); Paroxysmal atrial fibrillation (CMS/HCC) (HCC); Coronary artery disease involving prairie band coronary artery of prairie band heart without angina pectoris; Orthostatic syncope; Hospital discharge follow-up; Lipid screening 03/02/2024 Orders Only [facility] Cardiology [address] [facility] [address] [place] [address] Sarah Wong NP from Last 3 Months Allergies Active Allergy Reactions Criticality Noted Date Comments Rfgzqkt-Zaz-Jjy Reductase Inhibitors Muscle pain,Unknown Medium 05/24/2019 Info [...] 20 mg tabletIndications: Coronary artery disease involving prairie band coronary artery of prairie band heart without angina pectoris Take 1 tablet (20 mg total) by mouth daily 90 tablet 3 03/18/20 24 Active Active Problems Problem Noted Date Diagnosed Date NSTEMI (non-ST elevated myocardial infarction) ( [facility]) 11/24/2023 ARIADNA (acute kidney injury) 11/24/2023 Acute chest pain 11/23/2023 Acute coronary syndrome ([facility]) 11/23/2023 Supraventricular tachycardia 11/23/2023 Atrial fibrillation ([facility]) 11/23/2023 Primary hypertension 11/23/2023 Hyperlipidemia 11/23/2023 HIV [...] on file Legal Sex Male 9:53 AM CONTACT ACID PLANT OPERATOR Gender Identity Not on file Sexual Orientation Not on file Last Filed Vital Signs Vital Sign Reading Time Taken Comments Blood Pressure 122/84 03/18/2024 2:02 PM CONTACT ACID PLANT OPERATOR Pulse 89 03/18/2024 2:02 PM CONTACT ACID PLANT OPERATOR Temperature 36.3 ??C (97.4 ??F) 12/24/2023 3:00 PM CD T Respiratory Rate 18 12/24/2023 3:00 PM CDT Oxygen Saturation 95% 03/18/2024 2:02 PM CONTACT ACID PLANT OPERATOR Inhaled Oxygen Concentration - - Weight 117.5 kg (259 lb) 03/18/2024 2:02 PM CONTACT ACID PLANT OPERATOR Height 190.5 cm (6' 3 ) 03/18/2024 2:02 PM CONTACT ACID PLANT OPERATOR Body Mass Index 32.37 03/18/2024 2:02 PM CONTACT ACID PLANT OPERATOR Plan of Treatment Not on file Medical Devices Implanted Type Area Health Director Device Identifier Shelf Expiration Date Model / Serial / Lot Hol[employer]oscopy [employer] Suture Alphavent 4.75mm With 3-Strands 1.4mm Xbraid Tt [id number] - [id number] Implanted:Qty: 1 on 12/24/2023 by Altaf Naidu MD at [facility] Right: Shoulder [place] [facility] [id number] 10/23/2024 [id number] / / [id number] [employer] Corkscrew L4.75 Mr Tape Full Thread [place] Suture Biocomposite Sterile Disposable Latex Free [id number] - [id number] Implanted:Qty: 1 on 12/24/2023 by Altaf Naidu MD at [facility] Right: Shoulder [employer] [id number] 08/25/2026 [id number] / / [id number] Procedures Procedure Name Priority Date/Time Associated Diagnosis Comments POCT LIPID PANEL Routine 03/18/2024 2:14 PM CONTACT ACID PLANT OPERATOR Lipid screening URINALYSIS AND REFLEX TO MICROSCOPIC AND CULTURE Routine 11/23/2023 6:08 PM CDT from Last 3 Months or Most Recently Relevant to Health Maintenance Results * POCT lipid panel (03/18/2024 2:14 PM CONTACT ACID PLANT OPERATOR) Cholesterol, POC 248 mg/dL HDL, POC 41 mg/dL Triglycerides, POC 161 mg/dL LDL Cholesterol POC 175 mg/dL Chol/HDL Ratio, POC 4.3 Non-HDL Cholesterol, POC 207 mg/dL Cholesterol Total, POC 248 mg/dL Capillary blood 03/18/2024 2 :14 PM CONTACT ACID PLANT OPERATOR Kerry Joseph NP POINT OF CARE TEST [...] tendency for uric acid stone formation. Source: Incu[employer] Current Interpretive Data was last revised on [...] DERABLES Final Result CANDIDO GIL (LEO) [address] [facility] Department [place] [address] from Last 3 Months or Most Recently Relevant to Health Maintenance Insurance [facility] [place] [address] [place] [facility] Advance Directives For more information, please contact: [phone] * Full Code (Latest Code Status on File) Date Activated Date Inactivated Comments 11/23/2023 4:47 AM 11/24/2023 11:08 PM Care Teams Traffic Technician Relationship Specialty Start Date End Date Tiffany Ugarte MD PCP - General Actuarial Trainee 06/01/24
--- OUTSIDE RECORDS SUMMARY | 2024-06-02 13:03 | XMS_ITS | Encounter Summary ---
Author Organization [facility] Address [facility] [place] [address] Care Team Providers Care Mixer Operator Vacuum Pan Salt Name Role Phone New Referring, Provider Primary Care Provider Un available Concepcion Zeng NP Unavailable Unavailable Kevin Ontiveros MD Primary Care Provider [phone] Kevin Ontiveros MD Unavailable [phone] Gregory Hamlin Unavailable [phone] Chris Hamlin NP Primary Care Provider Arcadio Gilmore DO Unavailable [phone] Enzo Gutierrez MD Unavailable Encounter Details Date Type Department Care Team (Late st Contact Info) Description 07/12/2017 Abstract [facility] CONVERSION [address] [place] [address] , Generic Conversion, Social History Tobacco Use Types Packs/Day Years Used Date Smoking Tobacco: Never Assessed Sex and Gender Information Value Date Recorded Sex Assigned at Not on file Legal Sex Male 11:09 PM SNAKE CHARMER Gender Identity Male 05/30/2021 2:32 PM SNAKE CHARMER Sexual Orientation Not on file documented as [...] documented as of this encounter Care Teams Mixer Operator Vacuum Pan Salt Relationship Specialty Start Date End Date New Referring, Provider PCP - General UNKNOWN PHYSICIAN SPECIALTY 10/09/17 12/18/17 Kevin Ontiveros MD [address] [place] [address] PCP - General FAMILY PRACTICE 12/25/17 04/07/22 Kevin Ontiveros MD [address] [place] [address] PCP - [place] PROVIDER FAMILY PRACTICE 12/25/17 04/07/22 Chris Hamlin NP [address] [place], [place] [address], [place] [address] PCP - General NURSE PRACTITIONER 04/08/22 Concepcion Zeng NP Referring Physician CARDIOVASCULAR DISEASE 10/09/17 Gregory Hamlin PA [address] [place] [address] PHYSICIAN BELT BUCKLE MAKER 01/17/22 Arcadio Gilmore DO [address] [place], [place] [address], [place], [place] [address] Consulting Physician CARDIOVASCULAR DISEASE 05/30/22 Enzo Gutierrez MD [address] [place] [address] Consulting Physician INTERVENTIONAL CARDIOLOGY 11/21/22 documented as of this encounter
--- OUTSIDE RECORDS SUMMARY | 2024-06-02 13:03 | XMS_ITS | Continuity of Care Document ---
Author Name [facility] Organization [facility] Care Team Providers Care Supervisor [employer]dered [employer] Name Role Phone [facility] Unavailable Unavailable Problems Combined list of problems from Department of Defense and Veterans Affairs facilities. It does not include entries that were removed or entered in error. Problem Status Onset Date Problem Type Date of Resolution Comments Source Arthralgia of the ankle and/or foot Active Condition [facility] Atrial fibrillation Active Condition Dec 31, 2017 Entered By: DEBI CUENCA Comment: S/P ablation 12/25/2017Jun 2018 Entered By: SRINI MAGALLANES Comment: followed by [facility] Benign essential hypertension Active Condition [facility] Cervicalgia Active Condition [facility] Chronic cough Active Condition [facility] Chronic kidney disease stage 3 Active Condition Oct 15, 2018 Entered By: SRINI MAGALLANES Comment: avoids NSAIDS [facility] Chronic Low Back Pain (SCT 247436) Active Condition [facility] Diverticulitis Active Condition Jun Entered By: SRINI MAGALLANES Comment: 06/25/18 colonoscopy, bx pendingMay 2018 Entered By: JAVON SEYMOUR Comment: 09/08/18 Flex sig, biopsy--benig n tissue, repeat 2 yr [facility] Dysphagia Active Condition [facility] Family social history Active Condition Oct 15, 2018 Entered By: SRINI MAGALLANES Comment: father had SC, smoker, in 50'sJun 2018 Entered By: SRINI MAGALLANES Comment: brother with CVA at age 60Jun 2018 Entered By: SRINI MAGALLANES Comment: 1/2 brother with SC [facility] Gastroesophageal reflux disease Active Condition [facility] H/O: surgery Active Condition Oct 15, 2018 Entered By: SRINI MAGALLANES Comment: left hip fracture 1982, fall, in traction for monthJun 2018 Entered By: SRINI MAAGLLANES Comment: miriam in left upper femur, 2012 following fractureOct 15, 2018 Entered By: SRINI MAGALLANES Comment: lumbar fusion, 1999Oct 15, 2018 Entered By: SRINI MAGALLANES Comment: ablation 01/13 for atrial fib [facility] HIV - Human Immunodeficiency Virus Infection (SCT 99723199) Active Condition [facility] Hyperlipidemia Active Condition [facility] Long-term current use of anticoagulant [facility] Obesity Active Condition [facility] Obstructive sleep apnea syndrome Active Condition Apr 29, 2016 Entered By: RUTH WHITEHEAD Comment: split night 04/23/16: AHI 11.8/hr, 82% low sat; 5[facility]14[facility]wp [facility] Osteoarthritis of knee Active Condition [facility] Osteoporosis Active Condition Oct 15, 2018 Entered [...] MAGALLANES Comment: normal Vit D on replacement [facility] Pain of joint of knee Active Condition [facility] Panic attack Active Condition [facility] Primary subtalar osteoarthritis Active Condition [facility] Sensorineural hearing loss, bilateral [facility] Shoulder pain Active Condition 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 TEST RESULTS Active Condition Oct 14, 2018 Entered By: SRINI MAGALLANES Comment: 09/13 colonoscopy normal, repeat 2 years per GI noteJun 2018 Entered By: SRINI MAGALLANES Comment: 10/05/18 bone density, right hip normal, will continue to follow [facility] Thrombocytopenia (SCT 761456538) Active Condition [facility] Tinnitus Active Condition [facility] Vitamin D deficiency Active Condition [facility] Ankle pain Inactive Condition 05/01/2017 [facility] Elevated blood pressure Inactive Condition 05/01/2017 [facility] Hearing loss Inactive Condition 05/01/2017 [facility] Palpitations Inactive Condition 05/01/2017 [facility] Syncope Inactive Condition 05/01/2017 [facility] Diagnosis: ICD-10-CM M25.569 Pain in unspecified knee Active Diagnosis [facility] Diagnosis: ICD-10-CM N17.9 Acute kidney failure, unspecified Active Diagnosis [facility] Diagnosis: ICD-10-CM B20 Human immunodeficiency virus [HIV] disease [facility] Diagnosis [facility] Diagnosis: ICD-10-CM I48.0 Paroxysmal atrial fibrillation Active Diagnosis [facility] Diagnosis: ICD-10-CM M75.101 Unsp rotatr-cuff tear/ruptr of right shoulder, not trauma Active Diagnosis [facility] Diagnosis: ICD-10-CM Z01.810 Encounter for preprocedural cardiovascular examination Active Diagnosis [facility] Diagnosis: ICD-10-CM F32.5 Major depressive disorder, single episode, in full remission Active Diagnosis [facility] Diagnosis: ICD-10-CM F33.41 Major depressive disorder, recurrent, in partial remission Active Diagnosis [facility] Diagnosis: ICD-10-CM Z79.01 jail (current) use of anticoagulants Active Diagnosis [facility] Medications Combined list of outpatient medications from Department of Defense and [facility] Affairs facilities.Medications provided include 1) outpatient medications [...] MOUTH TWICE A DAY ORAL ACTIVE 03/13/2025 [id number] OFELIA CHEUNG 2023 180 [facility] APIXABAN 5MG TAB TAKE ONE TABLET BY MOUTH TWICE A DAY ORAL DISCONT INUED 04/20/2024 [id number] DRAKE DIAS 2022 180 [facility] ASPIRIN 81MG TAB,EC TAKE ONE TABLET BY MOUTH EVERY DAY ORAL ACTIVE 04/22/2025 [id number] 4 OFELIA CHEUNG NDERichard 2023 120 [facility] ASPIRIN 81MG TAB,EC TAKE ONE TABLET BY MOUTH EVERY DAY ORAL ACTIVE HIEN CUENCA 2017 [facility] ATORVASTATI N CA 80MG TAB TAKE ONE TABLET BY MOUTH AT BEDTIME CALL YOUR PROVIDER IF YOU HAVE MUSCLE PAIN, TENDERNE SS OR WEAKNESS ORAL ACTIVE 04/22/2025 [id number] 4 OFELIA CHEUNG NDERichard 2023 90 [facility] BICTEGRAVIR 50MG/EMTRIC ITABINE 200MG/TENOF OVIR AF 25MG TAB TAKE 1 TABLET BY MOUTH EVERY DAY FOR INFECTIO N DO NOT MIX WITH MINERALS /MVI FOR ADEQUATE ABSORPTI ON. FOR INFECTIO N DO NOT MIX WITH MINERALS /MVI FOR ADEQUATE ABSORPTI ON. ORAL ACTIVE 02/25/2025 [id number] 5 JULISAINWHA 2023 90 [facility] BICTEGRAVIR 50MG/EMTRIC ITABINE 200MG/TENOF OVIR AF 25MG TAB TAKE 1 TABLET BY MOUTH EVERY DAY FOR INFECTIO N DO NOT MIX WITH MINERALS /MVI FOR ADEQUATE ABSORPTI ON. FOR INFECTIO N DO NOT MIX WITH MINERALS /MVI FOR ADEQUATE ABSORPTI ON. ORAL DISCONT INUED 08/08/2024 [id number] 4 JULISAINLOUISA 2023 90 [facility] BICTEGRAVIR 50MG/EMTRIC ITABINE 200MG/TENOF OVIR AF 25MG TAB TAKE 1 TABLET BY MOUTH EVERY DAY FOR INFECTIO N DO NOT MIX WITH MINERALS /MVI FOR ADEQUATE ABSORPTI ON. FOR INFECTIO N DO NOT MIX WITH MINERALS /MVI FOR ADEQUATE ABSORPTI ON. ORAL DISCONT INUED 03/21/2024 [id number] 3 JULISA,INWHA 2022 90 [facility] BUSPIRONE HCL 5MG TAB TAKE ONE TABLET BY MOUTH TWICE A DAY FOR ANXIETY ORAL ACTIVE 09/12/2024 [id number] Omar MARCOS IGISHA 2023 180 [facility] BUSPIRONE HCL 5MG TAB TAKE ONE TABLET BY MOUTH TWICE A DAY FOR ANXIETY ORAL DISCONT INUED BY PROVIDE R 06/12/2024 [id number] 4 Omar MARCOS IGISHA 2023 120 [facility] BUSPIRONE HCL 5MG TAB TAKE ONE TABLET BY MOUTH TWICE A DAY FOR ANXIETY ORAL DISCONT INUED 05/15/2024 [id number] LUIS DIAS JAMEY PUJA 2023 120 [facility] BUSPIRONE HCL 5MG TAB TAKE ONE TABLET BY MOUTH TWICE A DAY FOR ANXIETY ORAL DISCONT INUED 01/07/2024 [id number] 3 Omar MARCOS IGISHA 2022 120 [facility] CALCITRIOL 0.25MCG CAP TAKE ONE CAPSULE BY MOUTH DAILY ORAL ACTIVE 04/22/2025 [id number] OFELIA CHEUNG NDERichard 2023 90 [facility] [...] TO MEASURE DOSE.* TOPICA L ACTIVE 05/28/2025 [id number] ANA,NICO AL L 2024 100 [facility] DILTIAZEM (EQV-TIAZAC AB4) 240MG 24HR CAP TAKE ONE CAPSULE BY MOUTH EVERY DAY FOR BLOOD PRESSURE /HEART ORAL DISCONT INUED 07/31/2023 [id number] TONY MUSE 2022 30 [facility] DILTIAZEM (EQV-TIAZAC AB4) 240MG 24HR CAP TAKE ONE CAPSULE BY MOUTH EVERY DAY FOR BLOOD PRESSURE /HEART ORAL 05/15/2024 [id number] 4 MOE DRAKE RAMIREZ 2023 30 [facility] ERGOCALCIFE ROL 1,250MCG (50,000UNIT ) CAP TAKE ONE CAPSULE BY MOUTH ONCE WEEKLY ON FRIDAY FOR VITAMIN D- SUPPLEME NT ORAL DISCONT INUED BY PROVIDE R 12/26/2024 [id number] 4 LEONA HOBBS 2023 13 [facility] ERGOCALCIFE ROL 1,250MCG (50,000UNIT ) CAP TAKE ONE CAPSULE BY MOUTH ONCE WEEKLY ON FRIDAY FOR VITAMIN D- SUPPLEME NT ORAL DISCONT INUED 01/07/2024 [id number] 4 LEONA HOBBS 2022 13 [facility] FOLIC ACID 1MG TAB TAKE ONE TABLET BY MOUTH DAILY ORAL ACTIVE 04/22/2025 [id number] 4 OFELIA CHEUNG 2023 90 [facility] METOPROLOL SUCCINATE 50MG TAB,SA TAKE ONE TABLET BY MOUTH NIGHTLY FOR BLOOD PRESSURE ORAL ACTIVE 12/18/2024 [id number] 5 LEONA HOBBS 2023 90 [facility] METOPROLOL SUCCINATE 50MG TAB,SA TAKE ONE TABLET BY MOUTH NIGHTLY FOR BLOOD PRESSURE ORAL DISCONT INUED 11/14/2023 [id number] LEONA HOBBS 2022 90 [facility] MULTIVITAMI NS W/MINERALS CAP/TAB TAKE 1 CAP/TAB BY MOUTH DAILY ORAL ACTIVE 04/22/2025 [id number] 4 OFELIA CHEUNG 2023 100 [facility] PANTOPRAZOL E NA 40MG TAB,EC TAKE ONE TABLET BY MOUTH EVERY DAY ORAL ACTIVE 12/18/2024 [id number] 5 LEONA HOBBS 2023 90 [facility] PANTOPRAZOL E NA 40MG TAB,EC TAKE ONE TABLET BY MOUTH EVERY DAY ORAL DISCONT INUED 11/14/2023 [id number] 4 LEONA HOBBS 2022 90 [facility] POTASSIUM CHLORIDE 20MEQ TAB,SA (DISPERSIBL E) TAKE ONE TABLET BY MOUTH DAILY FOR YAHAIRA DO NT ORAL 05/08/2024 [id number] 4 JUANITOMundo LEONA CLINT 2023 90 [facility] ROSUVASTATI N CA 20MG TAB TAKE ONE TABLET BY MOUTH EVERY DAY CALL YOUR PROVIDER IF YOU HAVE MUSCLE PAIN, TENDERNE SS OR WEAKNESS ORAL DISCONT INUED BY PROVIDE R 03/19/2025 [id number] 4 VIRGINIE,DANELLE ISTINE KATELYNN 2023 90 [facility] TAMSULOSIN HCL 0.4MG CAP TAKE ONE CAPSULE BY MOUTH EVERY EVENING TAKE 30 MINUTES AFTER A MEAL ORAL ACTIVE 10/01/2024 [id number] FRANKY JOHNSON 2023 90 [facility] TAMSULOSIN HCL 0.4MG CAP TAKE ONE CAPSULE BY MOUTH EVERY EVENING TAKE 30 MINUTES AFTER A MEAL ORAL DISCONT INUED (EDIT) 05/15/2024 [id number] 4 DRAKE DIAS 2023 30 [facility] THIAMINE 100MG TAB TAKE ONE TABLET BY MOUTH DAILY ORAL ACTIVE 04/22/2025 [id number] 4 OFELIA CHEUNG NDERichard 2023 100 [facility] VENLAFAXINE HCL 150MG 24HR CAP,SA TAKE ONE CAPSULE BY MOUTH DAILY FOR DEPRESSI ON WITH FOOD - MOOD ORAL ACTIVE 12/26/2024 [id number] 5 Omar MARCOS 2023 90 [facility] VENLAFAXINE HCL 150MG 24HR CAP,SA TAKE ONE CAPSULE BY MOUTH DAILY FOR DEPRESSI ON WITH FOOD - MOOD ORAL DISCONT INUED 09/12/2024 [id number] 4 Omar MARCOS 2023 90 [facility] VENLAFAXINE HCL 150MG 24HR CAP,SA TAKE ONE CAPSULE BY MOUTH DAILY WITH FOOD - MOOD ORAL DISCONT INUED BY PROVIDE R 06/12/2024 [id number] 4 Omar MARCOSViola 2023 60 [facility] Allergies, Adverse Reactions, Alerts Combined list of allergies from Department of Defense and Veterans Affairs facilities. It does not include entries that were removed or entered in error. Substance Category Reaction Severity Reaction type Status Date Reported Comments Source ATORVASTATIN Propensity to adverse reactions to drug (finding) Muscle pain active 6 [facility] ATORVASTATIN Propensity to adverse reactions to drug (finding) active 7 [facility] PRAVASTATIN Propensity to adverse reactions to drug (finding) Muscle pain active 8 [facility] Immunizations Combined list of available immunizations from the Department of Defense and Veterans Affairs facilities. Immunization Series Date Given Administered By Site Reaction Lot Number CVX Code Drug Milieu Technician Status Comments Source INFLUENZA, SPLIT VIRUS, TRIVALENT, PF 2024 MYERS,PRISC ILLA KATELYNN LEFT DELTO ID [id number] 140 complet [facility] TDAP 2024 MELITA MYERS ILLA KATELYNN RIGHT DELTO ID [id number] 115 complet [facility] INFLUENZA, INJECTABLE, QUADRIVALENT, PRESERVATIVE FREE 2023 RENNY PERKINS RY LEFT DELTO ID [id number] 150 complet [facility] INFLUENZA, INJECTABLE, QUADRIVALENT, PRESERVATIVE FREE 2021 150 complet [facility] ZOSTER RECOMBINANT 2 2021 187 complet [facility] INFLUENZA, INJECTABLE, QUADRIVALENT, PRESERVATIVE FREE 2020 150 complet [facility] ZOSTER RECOMBINANT 1 2020 187 complet [facility] COVID-19 (SHANNAN), VECTOR-NR, RS-AD26, PF, 0.5 ML 1 2020 212 complet ed [facility] INFLUENZA, INJECTABLE, QUADRIVALENT, PRESERVATIVE FREE 2019 150 complet ed [facility] HEP A, ADULT 2 2018 52 complet ed [facility] INFLUENZA, INJECTABLE, QUADRIVALENT, PRESERVATIVE FREE 2018 150 complet ed [facility] MENINGOCOCCAL MCV4P 2018 114 complet ed [facility] HEP A, ADULT 1 2018 52 complet ed [facility] INFLUENZA, INJECTABLE, QUADRIVALENT, PRESERVATIVE FREE 2017 150 complet ed [facility] INFLUENZA, SEASONAL, INJECTABLE, PRESERVATIVE FREE 2016 140 complet ed Right Deltoid 0.5ml IM [facility] INFLUENZA, SEASONAL, INJECTABLE, PRESERVATIVE FREE 2015 140 complet ed Right Deltoid 0.5ml IM [facility] INFLUENZA, UNSPECIFIED FORMULATION 2015 88 complet ed [facility] INFLUENZA, UNSPECIFIED FORMULATION 2015 88 complet [...] 88 complet ed Left Deltoid 0.5ml IM [facility] PNEUMOCOCCAL POLYSACCHARID E [id number] 2001 33 complet ed Right Deltoid [facility] INFLUENZA, UNSPECIFIED FORMULATION 1998 88 complet ed [facility] TD(ADULT) UNSPECIFIED FORMULATION 1997 139 complet ed [facility] Results Combined list of recent chemistry, hematology and other laboratory results from Department of Defense and Veterans Affairs, ranging from 15 months to all on record, depending upon the facility. Order Name Results Value Reference Range Date Interpretation Specimen Comments Source COMPREHEN SIVIsa PNL ANION GAP IN SERUM OR PLASMA 12 mmol/L 5 - 15 05/27 Specimen Type: PLASMA Comment: eGFR was calculated using the CKD-EPI Creatinine (2020) equation. Ordering Provider: CROW CHEUNG Report Released Date/Time: Apr 23, 2024 08:34 AM Reporting Lab: [facility] [address] [facility] [address] Performing Lab: [facility] [address] [facility] [address] [facility] COMPREHEN TIMI PNL GLOMERULAR FILTRATION RATE/1.73 SQ M.PREDICTED [VOLUME RATE/AREA] IN SERUM, PLASMA OR BLOOD BY CREATININE- BASED FORMULA (CKD-EPI 2020) 75 mL/min /{1.73 _m2} 60 05/27 Specimen Type: PLASMA Comment: eGFR was calculated using the CKD-EPI Creatinine (2020) equation. Ordering Provider: CROW CHEUNG ER Report Released Date/Time: Apr 23, 2024 08:34 AM Reporting Lab: [address] [address] Performing Lab: [address] [address] [facility] COMPREHEN SIVE PNL GLUCOSE [MASS/VOLUM E] IN SERUM OR PLASMA 105 mg/dL 70 - 99 05/27 H Specimen Type: PLASMA Comment: eGFR was calculated using the CKD-EPI Creatinine (2020) equation. Ordering Provider: CROW CHEUNG ER Report Released Date/Time: Apr 23, 2024 08:34 AM Reporting Lab: [address] [address] Performing Lab: [address] [address] [facility] COMPREHEN SIVE PNL POTASSIUM [MOLES/VOLU ME] IN SERUM OR PLASMA 4.0 mmol/L 3.5 - 4.7 05/27 Specimen Type: PLASMA Comment: eGFR was calculated using the CKD-EPI Creatinine (2020) equation. Ordering Provider: CROW CHEUNG ER Report Released Date/Time: Apr 23, 2024 08:34 AM Reporting Lab: [address] [address] Performing Lab: [address] [address] [facility] COMPREHEN SIVE PNL SODIUM [MOLES/VOLU ME] IN SERUM OR PLASMA 139 mmol/L 136 - 145 05/27 Specimen Type: PLASMA Comment: eGFR was calculated using the CKD-EPI Creatinine (2020) equation. Ordering Provider: CROW CHEUNG ER Report Released Date/Time: Apr 23, 2024 08:34 AM Reporting Lab: [address] [address] Performing Lab: [address] [address] [facility] COMPREHEN SIVE PNL BILIRUBIN.T OTAL [MASS/VOLUM E] IN SERUM OR PLASMA 0.7 mg/dL 0.2 - 1.2 05/27 Specimen Type: PLASMA Comment: eGFR was calculated using the CKD-EPI Creatinine (2020) equation. Ordering Provider: CROW CHEUNG ER Report Released Date/Time: Apr 23, 2024 08:34 AM Reporting Lab: [address] [address] Performing Lab: [address] [address] [facility] COMPREHEN SIVE PNL PROTEIN [MASS/VOLUM E] IN SERUM OR PLASMA 7.1 g/dL 5.7 - 8.2 05/27 Specimen Type: PLASMA Comment: eGFR was calculated using the CKD-EPI Creatinine (2020) equation. Ordering Provider: CROW CHEUNG ER Report Released Date/Time: Apr 23, 2024 08:34 AM Reporting Lab: [address] [address] Performing Lab: [place] [phone] [facility] COMPREHEN SIVE PNL ALBUMIN [MASS/VOLUM E] IN SERUM OR PLASMA 4.6 g/dL 3.4 - 5.0 05/27 Specimen Type: PLASMA Comment: eGFR was calculated using the CKD-EPI Creatinine (2020) equation. Ordering Provider: CROW CHEUNG ER Report Released Date/Time: Apr 23, 2024 08:34 AM Reporting Lab: [address] [address] Performing Lab: [address] [address] [facility] COMPREHEN SIVE PNL ALKALINE PHOSPHATASE [ENZYMATIC ACTIVITY/VO LUME] IN SERUM OR PLASMA 150 U/L 45 - 117 05/27 H Specimen Type: PLASMA Comment: eGFR was calculated using the CKD-EPI Creatinine (2020) equation. Ordering Provider: CROW CHEUNG ER Report Released Date/Time: Apr 23, 2024 08:34 AM Reporting Lab: [address] [address] Performing Lab: [address] [address] [facility] COMPREHEN SIVE PNL ALANINE AMINOTRANSF ERASE [ENZYMATIC ACTIVITY/VO LUME] IN SERUM OR PLASMA 47 U/L 10 - 65 05/27 Specimen Type: PLASMA Comment: eGFR was calculated using the CKD-EPI Creatinine (2020) equation. Ordering Provider: CROW CHEUNG ER Report Released Date/Time: Apr 23, 2024 08:34 AM Reporting Lab: [address] [address] Performing Lab: [address] [address] [facility] COMPREHEN SIVE PNL ASPARTATE AMINOTRANSF ERASE [ENZYMATIC ACTIVITY/VO LUME] IN SERUM OR PLASMA 35 U/L 10 - 37 05/27 Specimen Type: PLASMA Comment: eGFR was calculated using the CKD-EPI Creatinine (2020) equation. Ordering Provider: CROW CHEUNG ER Report Released Date/Time: Apr 23, 2024 08:34 AM Reporting Lab: [address] [address] Performing Lab: [address] [address] [facility] COMPREHEN SIVE PNL UREA NITROGEN [MASS/VOLUM E] IN SERUM OR PLASMA 17 mg/dL 7 - 21 05/27 Specimen Type: PLASMA Comment: eGFR was calculated using the CKD-EPI Creatinine (2020) equation. Ordering Provider: CROW CHEUNG ER Report Released Date/Time: Apr 23, 2024 08:34 AM Reporting Lab: [address] [address] Performing Lab: [address] [address] [facility] COMPREHEN SIVE PNL CALCIUM, TOTAL 9.9 mg/dL 8.7 - 10.4 05/27 Specimen Type: PLASMA Comment: eGFR was calculated using the CKD-EPI Creatinine (2020) equation. Ordering Provider: CROW CHEUNG ER Report Released Date/Time: Apr 23, 2024 08:34 AM Reporting Lab: [address] [address] Performing Lab: [address] [address] [facility] COMPREHEN SIVE PNL CARBON DIOXIDE, TOTAL [MOLES/VOLU ME] IN SERUM OR PLASMA 25 mmol/L 21 - 32 05/27 Specimen Type: PLASMA Comment: eGFR was calculated using the CKD-EPI Creatinine (2020) equation. Ordering Provider: CROW CHEUNG ER Report Released Date/Time: Apr 23, 2024 08:34 AM Reporting Lab: [facility] [address] [facility] [address] Performing Lab: [facility] [address] [facility] [address] [facility] COMPREHEN SIVE PNL CHLORIDE [MOLES/VOLU ME] IN SERUM OR PLASMA 102 mmol/L 98 - 109 05/27 Specimen Type: PLASMA Comment: eGFR was calculated using the CKD-EPI Creatinine (2020) equation. Ordering Provider: CROW CHEUNG Report Released Date/Time: Apr 23, 2024 08:34 AM Reporting Lab: [facility] [address] [place] [address] Performing Lab: [facility] [address] [facility] [address] [facility] COMPREHEN SIVE PNL CREATININE [MASS/VOLUM E] IN URINE 1.11 mg/dL 0.73 - 1.18 05/27 Specimen Type: PLASMA Comment: eGFR was calculated using the CKD-EPI Creatinine (2020) equation. Ordering Provider: CROW CHEUNG Report Released Date/Time: Apr 23, 2024 08:34 AM Reporting Lab: [facility] [address] [facility] [address] Performing Lab: [facility] [address] [facility] [address] [facility] PTH INTCT PARATHYRIN. INTACT [MASS/VOLUM E] IN SERUM OR PLASMA 83.4 pg/mL 18.4 - 80.1 05/27 H Specimen Type: PLASMA No comment entered. Ordering Provider: NANCY SANDERSON Report Released Date/Time: May 11, 2024 04:06 PM Reporting Lab: [facility] [address] [facility] [address] Performing Lab: [facility] [address] [facility] [address] [facility] URINE ALBUMIN/C REAT ([place] URINE) MICROALBUMI N [MASS/VOLUM E] IN URINE 1.5 mg/dL <2.0 - 2.0 05/27 Specimen Type: URINE No comment entered. Ordering Provider: NANCY SANDERSON Report Released Date/Time: May 11, 2024 04:06 PM Reporting Lab: [address] [address] Performing Lab: [address] [address] [facility] URINE ALBUMIN/C REAT ([place] URINE) CREATININE [MASS/VOLUM E] IN URINE 210.70 mg/dL 40 - 278 05/27 Specimen Type: URINE No comment entered. Ordering Provider: NANCY SANDERSON Report Released Date/Time: May 11, 2024 04:06 PM Reporting Lab: [address] [address] Performing Lab: [address] [address] [facility] URINE ALBUMIN/C REAT ([place] URINE) MICROALBUMI N/CREATININ E [RATIO] IN URINE 7 mg/g <30 - 30 05/27 Specimen Type: URINE No comment entered. Ordering Provider: NANCY SANDERSON Report Released Date/Time: May 11, 2024 04:06 PM Reporting Lab: [address] [address] Performing Lab: [address] [address] [facility] VITAMIN D 25-HYDROX Y 25-HYDROXYV ITAMIN D3 [MASS/VOLUM E] IN SERUM OR PLASMA 51.70 ng/mL 30 - 100 05/27 Specimen Type: SERUM Comment: Deficiency <20, Insufficien cy 20-30, Sufficiency 30-100, Toxicity >100 ng/mL Ordering Provider: CROW HCEUNG Report Released Date/Time: Apr 23, 2024 08:34 AM Reporting Lab: [address] [address] Performing Lab: [address] [address] [facility] COMPREHEN SIVE PNL ANION GAP IN SERUM [...] Mar 12, 2024 08:39 AM Reporting Lab: [address] [address] Performing Lab: [place] [phone] [facility] COMPREHEN SIVE PNL GLOMERULAR FILTRATION RATE/1.73 SQ [...] Mar 12, 2024 08:39 AM Reporting Lab: [address] [address] Performing Lab: [address] [address] [facility] COMPREHEN SIVE PNL GLUCOSE [MASS/VOLUM E] IN [...] Mar 12, 2024 08:39 AM Reporting Lab: [place] [address] Performing Lab: [address] COMPREHEN SIVE PNL POTASSIUM [MOLES/VOLU ME] IN [...] Mar 12, 2024 08:39 AM Reporting Lab: [place] [address] Performing Lab: [place] [address] [place] [address] COMPREHEN SIVE PNL SODIUM [MOLES/VOLU ME] IN [...] Mar 12, 2024 08:39 AM Reporting Lab: [place] [address] Performing Lab: [address] COMPREHEN SIVE PNL BILIRUBIN.T OTAL [MASS/VOLUM [...] Mar 12, 2024 08:39 AM Reporting Lab: [place] [address] Performing Lab: [place] [address] [place] [address] COMPREHEN SIVE PNL PROTEIN [MASS/VOLUM E] IN [...] Mar 12, 2024 08:39 AM Reporting Lab: [place] [address] Performing Lab: [address] COMPREHEN SIVE PNL ALBUMIN [MASS/VOLUM E] IN [...] Mar 12, 2024 08:39 AM Reporting Lab: [place] [address] Performing Lab: [place] [address] [place] [address] COMPREHEN SIVE PNL ALKALINE PHOSPHATASE [ENZYMATIC ACTIVITY/VO [...] Mar 12, 2024 08:39 AM Reporting Lab: [place] [id number] Performing Lab: [place] [address] [facility] COMPREHEN SIVE PNL ALANINE AMINOTRANSF ERASE [ENZYMATIC ACTIVITY/VO LUME] IN SERUM OR PLASMA 57 U/L 03/30 Specimen Type: PLASMA Comment: Low-risk levels [...] Mar 12, 2024 08:39 AM Reporting Lab: [address] [address] Performing Lab: [place] [id number] [facility] COMPREH SIVE PNL ASPARTATE AMINOTRANSF ERASE [ENZYMATIC ACTIVITY/VO LUME] IN SERUM OR PLASMA 33 U/L 03/30 Specimen Type: PLASMA Comment: Low-risk levels [...] Mar 12, 2024 08:39 AM Reporting Lab: [address] [address] Performing Lab: [address] [address] [facility] COMPREHEN SIVIsa PNL UREA NITROGEN [MASS/VOLUM E] IN SERUM OR PLASMA 18 mg/dL 7 - 03/30 Specimen Type: PLASMA Comment: Low-risk [...] Mar 12, 2024 08:39 AM Reporting Lab: [address] [address] Performing Lab: [address] [address] [facility] COMPREHEN SIVE PNL CALCIUM, TOTAL 9.7 mg/dL 8.7 - [...] Mar 12, 2024 08:39 AM Reporting Lab: [address] [address] Performing Lab: [address] [address] [facility] COMPREHEN SIVE PNL CARBON DIOXIDE, TOTAL [MOLES/VOLU [...] Mar 12, 2024 08:39 AM Reporting Lab: [address] [address] Performing Lab: [address] [address] [facility] COMPREHEN SIVE PNL CHLORIDE [MOLES/VOLU ME] IN [...] Mar 12, 2024 08:39 AM Reporting Lab: [address] [address] Performing Lab: [address] [address] [facility] FABIENNE TIMI PNL CREATININE [MASS/VOLUM E] IN URINE 1.30 [...] Mar 12, 2024 08:39 AM Reporting Lab: [address] [address] Performing Lab: [address] [address] [facility] HIV PCR QUANT (PANEL) HIV 1 RNA [...] Mar 12, 2024 08:39 AM Reporting Lab: [address] [address] Performing Lab: [facility] [address] [place] [address] [facility] HIV PCR QUANT (PANEL) HIV 1 RNA [...] Mar 12, 2024 08:39 AM Reporting Lab: [address] [address] Performing Lab: [facility] [address] [place] [address] [facility] LIPID PNL CHOLESTEROL IN HDL [MASS/VOLUM E] [...] Mar 12, 2024 08:39 AM Reporting Lab: [place] [address] Performing Lab: [place] [address] [place] [address] LIPID PNL TRIGLYCERID E [MASS/VOLUM E] IN [...] Mar 12, 2024 08:39 AM Reporting Lab: [place] [address] Performing Lab: [place] [address] [place] [address] LIPID PNL CHOLESTEROL IN LDL [MASS/VOLUM E] IN SERUM OR PLASMA BY DIRECT ASSAY can 03/30 Specimen Type: PLASMA Comment: Low-risk levels [...] Mar 12, 2024 08:39 AM Reporting Lab: [address] [address] Performing Lab: [address] [address] [facility] LIPID PNL CHOLESTEROL [MASS/VOLUM E] IN SERUM [...] Mar 12, 2024 08:39 AM Reporting Lab: [address] [address] Performing Lab: [address] [address] [facility] LIPID PNL CHOLESTEROL IN LDL [MASS/VOLUM E] [...] Mar 12, 2024 08:39 AM Reporting Lab: [facility] [address] [place] [address] Performing Lab: [facility] [address] [place] [address] [facility] LYMPH SUBSET PANEL 4 ([id number]) -[facility]UP CD3 CELLS [#/VOLUME] IN BLOOD 1191 {cells }/uL 570 - 2400 03/30 Specimen Type: BLOOD Comment: INTERPRETIV E INFORMATION : Lymphocyte Subset 4, Pct. and Ratio, WB The CD4 cells are [place] T-cells expressing both CD3 and CD4. The [...] and its performance characteris tics determined by MIQUEL florian. It has not been cleared or approved by the US Food and Drug Administrat [employer]. This test was performed in a CLIA certified laboratory and is intended for clinical purposes. Performed By: [facility] Solorzano s [address] [place] [address] Surveyor Mine: Sabino Diaz MD, PhD CLIA Number: [id number] Ordering Provider: OSWALDO EGAN Report Released Date/Time: Mar 12, 2024 08:39 AM Reporting Lab: [address] [address] Performing Lab: [address] [address] [facility] LYMPH SUBSET PANEL 4 ([id number]) -CTUP CD3+CD4+ (T4 HELPER) CELLS [#/VOLUME] IN BLOOD 634 {cells }/uL 430 - 1800 03/30 Specimen Type: BLOOD Comment: INTERPRETIV E INFORMATION : Lymphocyte Subset 4, Pct. and Ratio, WB The CD4 cells are [place] T-cells expressing both CD3 and CD4. The [...] efficacy of treatment. The Public Health Service ([facility]) has recommended that CD4 T-cell levels be monitored every three to six months in all HIV-infecte d persons. This test was developed and its performance characteris tics determined by [employer]. It has not been cleared or approved by the US Food and Drug Administrat [employer]. This test was performed in a CLIA certified laboratory and is intended for clinical purposes. Performed By: [facility] [address] [place] [address] Surveyor Mine: Sabino Diaz MD, PhD CLIA Number: [id number] Ordering Provider: OSWALDO EGAN Report Released Date/Time: Mar 12, 2024 08:39 AM Reporting Lab: [facility] [address] [facility] [address] Performing Lab: [facility] [address] [facility] [address] [facility] LYMPH SUBSET PANEL 4 ([id number]) -[facility] CD3+CD8+ (T8 SUPPRESSOR) CELLS [#/VOLUME] IN BLOOD 557 {cells }/uL 210 - 1200 03/30 Specimen Type: BLOOD Comment: INTERPRETIV E INFORMATION : Lymphocyte Subset 4, Pct. and Ratio, WB The CD4 cells are [place] T-cells expressing both CD3 and CD4. The [...] efficacy of treatment. The Public Health Service ([facility]) has recommended that CD4 T-cell levels be monitored every three to six months in all HIV-infecte d persons. This test was developed and its performance characteris tics determined by [employer]. It has not been cleared or approved by the US Food and Drug Administrat [employer]. This test was performed in a CLIA certified laboratory and is intended for clinical purposes. Performed By: [facility] [address] [place], [place] [id number] Surveyor Mine: Sabino Diaz MD, PhD CLIA Number: [id number] Ordering Provider: OSWALDO EGAN Report Released Date/Time: Mar 12, 2024 08:39 AM Reporting Lab: [facility] [address] [facility] [address] Performing Lab: [address] [address] [facility] LYMPH SUBSET PANEL 4 ([id number]) -[facility] CD3 CELLS/100 CELLS IN SPECIMEN 84 62 - 87 03/30 Specimen Type: BLOOD Comment: INTERPRETIV E INFORMATION : Lymphocyte Subset 4, Pct. and Ratio, WB The CD4 cells are [place] T-cells expressing both CD3 and CD4. The CD8 cells are Cytotoxic T-cells expressing both CD3 and CD8. CD3, CD4 and CD8 percentages are reported as a percent of total lymphocytes . CD4 T-cells levels are a criterion for categorizin g HIV-related clinical conditions by CDC's classVan [employer]ilder [employer]at ion system for HIV infection. The measurement [...] and its performance characteris tics determined by [employer]. It has not been cleared or approved by the US Food and Drug Administrat [employer]. This test was performed in a CLIA certified laboratory and is intended for clinical purposes. Performed By: [facility] [address] [place] [address] Surveyor Mine: Sabino Diaz MD, PhD CLIA Number: [id number] Ordering Provider: OSWALDO EGAN Report Released Date/Time: Mar 12, 2024 08:39 AM Reporting Lab: [facility] [address] [facility] [address] Performing Lab: [address] [address] [facility] LYMPH SUBSET PANEL 4 ([id number]) -[facility] CD3+CD4+ (T4 HELPER) CELLS/100 CELLS IN BLOOD 45 32 - 64 03/30 Specimen Type: BLOOD Comment: INTERPRETIV E INFORMATION : Lymphocyte Subset 4, Pct. and Ratio, WB The CD4 cells are [place] T-cells expressing both CD3 and CD4. The [...] and its performance characteris tics determined by [employer]. It has not been cleared or approved by the US Food and Drug Administrat [employer]. This test was performed in a CLIA certified laboratory and is intended for clinical purposes. Performed By: [facility] [address] [place], [place] [id number] Surveyor Mine: Sabino Diaz MD, PhD CLIA Number: [id number] Ordering Provider: OSWALDO EGAN Report Released Date/Time: Mar 12, 2024 08:39 AM Reporting Lab: [facility] [address] [facility] [address] Performing Lab: [facility] [address] [facility] [address] [facility] LYMPH SUBSET PANEL 4 ([id number]) -[facility] CD3+CD8+ (T8 SUPPRESSOR) CELLS/100 CELLS IN SPECIMEN 39 15 - 46 03/30 Specimen Type: BLOOD Comment: INTERPRETIV E INFORMATION : Lymphocyte Subset 4, Pct. and Ratio, WB The CD4 cells are [place] T-cells expressing both CD3 and CD4. The [...] and its performance characteris tics determined by [employer]. It has not been cleared or approved by the US Food and Drug Administrat ion. This test was performed in a CLIA certified laboratory and is intended for clinical purposes. Performed By: [employer] [address] [place] [address] Surveyor Mine: Sabino Diaz MD, PhD CLIA Number: [id number] Ordering Provider: OSWALDO EGAN Report Released Date/Time: Mar 12, 2024 08:39 AM Reporting Lab: [facility] [address] [facility] [address] Performing Lab: [facility] [address] [facility] [address] [facility] LYMPH SUBSET PANEL 4 ([id number]) -[facility] CD3+CD4+ (T4 HELPER) CELLS/CD3+C D8+ (T8 SUPPRESSOR CELLS) CELLS [# RATIO] IN BLOOD 1.15 {ratio } 0.80 - 3.90 03/30 Specimen Type: BLOOD Comment: INTERPRETIV E INFORMATION : Lymphocyte Subset 4, Pct. and Ratio, WB The CD4 cells are [place] T-cells expressing both CD3 and CD4. The [...] and its performance characteris tics determined by [employer]. It has not been cleared or approved by the US Food and Drug Administrat [employer]. This test was performed in a CLIA certified laboratory and is intended for clinical purposes. Performed By: [employer] [address] [place] [address] Surveyor Mine: Sabino Diaz MD, PhD CLIA Number: [id number] Ordering Provider: OSWALDO EGAN Report Released Date/Time: Mar 12, 2024 08:39 AM Reporting Lab: [facility] [address] [facility] [address] Performing Lab: [address] [address] [facility] LYMPH SUBSET PANEL 4 ([id number]) -[facility] ANNOTATION COMMENT [INTERPRETA TION] NARRATIVE See Note 03/30 Specimen Type: BLOOD Comment: INTERPRETIV E INFORMATION : Lymphocyte Subset 4, Pct. and Ratio, WB The CD4 cells are [place] T-cells expressing both CD3 and CD4. The [...] and its performance characteris tics determined by MIQUEL florian. It has not been cleared or approved by the US Food and Drug Administrat [employer]. This test was performed in a CLIA certified laboratory and is intended for clinical purposes. Performed By: [facility] [address] [place] [address] Surveyor Mine: Sabino Diaz MD, PhD CLIA Number: [id number] Ordering Provider: OSWALDO EGAN Report Released Date/Time: Mar 12, 2024 08:39 AM Reporting Lab: [facility] [address] [place] [address] Performing Lab: [address] [address] [facility] PHOS PHOS 2.9 mg/dL 2.4 - 5.1 [...] Mar 12, 2024 08:39 AM Reporting Lab: [address] [address] Performing Lab: [address] [address] [facility] VITAMIN D 25-HYDROX Y 25-HYDROXYV ITAMIN D3 [MASS/VOLUM E] IN SERUM OR PLASMA 48.30 ng/mL 30 - 100 03/30 Specimen Type: SERUM Comment: Deficiency <20, Insufficien cy 20-30, Sufficiency 30-100, Toxicity >100 ng/mL Ordering Provider: OSWALDO EGAN Report Released Date/Time: Mar 12, 2024 08:39 AM Reporting Lab: [address] [address] Performing Lab: [address] [address] [facility] Vital Signs Combined list of inpatient and outpatient Vital Signs from Department of Defense and Veterans Affairs, ranging from 12 months to all on record, depending upon the facility. Vital Sign Value Date Comments Source SYSTOLIC BLOOD PRESSURE 152 05/27/2024 13:49:34 [facility] DIASTOLIC BLOOD PRESSURE 92 05/27/2024 13:49:34 [facility] PULSE OXIMETRY 94 05/27/2024 13:49:34 [facility] WEIGHT 264.4 05/27/2024 13:49:34 [facility] BMI 33kg/m2 05/27/2024 13:49:34 [facility] PAIN 7 05/27/2024 13:49:34 [facility] TEMPERATURE 97.7 05/27/2024 13:49:34 [facility] PULSE 103 05/27/2024 13:49:[facility] RESPIRATION 22 05/27/2024 13:49:34 [facility] SYSTOLIC BLOOD PRESSURE 153 05/11/2024 14:19:31 [facility] DIASTOL[facility] B[facility] PRESSURE 99 05/11/2024 14:19:31 [facility] PULSE OXIMETRY 94 05/11/2024 14:19:31 [facility] WEIGHT 268 05/11/2024 14:19:31 [facility] BMI 34kg/m2 05/11/2024 14:19:31 [facility] PAIN 6 05/11/2024 14:19:31 [facility] HEIGHT 75 05/11/2024 14:19:31 [facility] TEMPERATURE 97.5 05/11/2024 14:19:31 [facility] PULSE 70 05/11/2024 14:19:31 [facility] RESPIRATION 20 05/11/2024 14:19:31 [facility] SYSTOLIC BLOOD PRESSURE 153 12/15/2023 13:59:53 [facility] DIASTOLIC BLOOD PRESSURE 104 12/15/2023 13:59:53 [facility] PULSE OXIMETRY 95 12/15/2023 13:59:53 [facility] WEIGHT 269 12/15/2023 13:59:53 [facility] BMI 34kg/m2 12/15/2023 13:59:53 [facility] PAIN 5 12/15/2023 13:59:53 [facility] HEIGHT 75 12/15/2023 13:59:53 [facility] TEMPERATURE 97.7 12/15/2023 13:59:53 [facility] PULSE 73 12/15/2023 13:59:53 [facility] SYSTOLIC BLOOD PRESSURE 146 12/10/2023 11:45:29 [facility] DIASTOLIC BLOOD PRESSURE 99 12/10/2023 11:45:29 [facility] PULSE OXIMETRY 94 12/10/2023 11:45:29 [facility] WEIGHT 274 12/10/2023 11:45:29 [facility] BMI 34kg/m2 12/10/2023 11:45:29 [facility] TEMPERATURE 97.8 12/10/2023 11:45:29 [facility] PULSE 76 12/10/2023 11:45:29 [facility] RESPIRATION 16 12/10/2023 11:45:29 [facility] Encounters Combined list of: 1) Encounters from Department of Veterans Affairs facilities going back up to thelast 18 months. 2) Encounters from the Department of Defense facilities going back up to 280 months. Location Location Details Encounter Type Encounter Number Reason For Visit Attending Provider ADM Date DC Date Status Disposition Source [facility] Outpatient Encounter [id number] 12/13 [facility] OFFICE O/P EST MOD 30-39 MIN [id number] Diagnos is: ICD-10- CM F33.41 Major depress ketty disorde r, recurre nt, in partial remissi on
PREETI MARCOS 01/14 [facility] Outpatient Encounter [id number] 01/23 [facility] Outpatient Encounter [id number] 01/23 [facility] Outpatient Encounter [id number] 01/23 [facility] Outpatient Encounter [id number] 01/24 [facility] Outpatient Encounter [id number] 01/24 [facility] Outpatient Encounter [id number] 01/24 [facility] Outpatient Encounter [id number] 01/28 [facility] Outpatient Encounter [id number] 02/27 [facility] QNHP OL DIG ASSMT&MGMT 5-10 [id number] Diagnos is: ICD-10- CM Z79.01 buttermaker (curren t) use of anticoa gulants
BEVERLEY SAMUEL 03/17 [facility] QNHP OL DIG ASSMT&MGMT 5-10 [id number] Diagnos is: ICD-10- CM I48.0 Paroxys mal atrial fibrill ation<b r/> ELIAN COOPER 04/17 [facility] Outpatient Encounter [id number] 04/18 [facility] Outpatient Encounter [id number] 05/02 [facility] Outpatient Encounter [id number] 05/08 [facility] Outpatient Encounter [id number] 05/08 [facility] Outpatient Encounter [id number] 05/15 [facility] Outpatient Encounter [id number] 05/17 [facility] OFFICE O/P EST MOD 30 MIN [id number] [id number] Diagnos is: ICD-10- CM B20 Human immunod eficien cy virus [HIV] disease
OSWALDO EGAN 05/20 [facility] Outpatient Encounter [id number] 05/20 [facility] OFFICE O/P EST MOD 30 MIN [id number] [id number] Diagnos is: ICD-10- CM N17.9 Acute kidney failure , unspeci fied
NANCY JAIMES 05/20 [facility] Outpatient Encounter [id number] 05/20 [facility] Outpatient Encounter [id number] 05/20 [facility] Outpatient Encounter [id number] 05/21 [facility] Outpatient Encounter [id number] [id number] 05/21 [facility] Outpatient Encounter [id number] [id number] 05/22 [facility] Outpatient Encounter [id number] [id number] 05/22 [facility] Outpatient Encounter [id number] 05/23 [facility] Outpatient Encounter [id number] [id number] 05/23 [facility] Outpatient Encounter [id number] [id number] 06/12 [facility] Outpatient Encounter [id number] 06/12 [facility] OFFICE O/P EST MOD 30 MIN [id number] Diagnos is: ICD-10- CM F33.41 Major depress ketty disorde r, recurre nt, in partial remissi on
PREETI MARCOS 06/12 [facility] Outpatient Encounter [id number] 08/18 [facility] Outpatient Encounter [id number] 08/18 [facility] Outpatient Encounter [id number] 08/20 [facility] Outpatient Encounter [id number] 08/21 [facility] Outpatient Encounter [id number] 08/26 [facility] Outpatient Encounter [id number] [id number] 08/27 [facility] PSYTX W PT W E/M 30 MIN [id number] Diagnos is: ICD-10- CM F32.5 Major depress ketty disorde r, single episode , in full remissi on
PREETI MARCOS 09/11 [facility] Outpatient Encounter [id number] 09/15 [facility] Outpatient Encounter [id number] [id number] 09/30 [facility] Outpatient Encounter [id number] [id number] 09/30 [facility] En[facility] [id number] [id number] 10/28 [facility] Encounter [id number] [id number] 11/09 [facility] Encounter [id number] [id number] 11/10 [facility] Outpatient Encounter [id number] [id number] 11/10 [facility] Outpatient Encounter [id number] [id number] 11/18 [facility] Outpatient Encounter [id number] FRANCINESHYANN 11/25 [facility] N [facility] Outpatient Encounter [id number] [id number] 11/30 [facility] Outpatient Encounter [id number] [id number] 12/01 [facility] Outpatient Encounter [id number] 12/01 [facility] Outpatient Encounter [id number] 12/07 [facility] OFF/OP CONSLTJ NEW/EST HI 55 [id number] [id number] Diagnos is: ICD-10- CM Z01.810 Encount er for preproc edural cardiov ascular examina tion
ANTONI PRAJAPATI 12/09 [facility] Outpatient Encounter [id number] [id number] 12/11 [facility] OFFICE O/P EST MOD 30 MIN [id number] Diagnos is: ICD-10- CM M75.101 Unsp rotatr- cuff tear/ru ptr of right shoulde r, not trauma< br/> Lencho JOHNSON 12/14 [facility] Outpatient Encounter [id number] [id number] 12/21 [facility] Outpatient Encounter [id number] 12/23 [facility] Outpatient Encounter [id number] [id number] 12/30 [facility] Outpatient Encounter [id number] 01/26 [facility] Outpatient Encounter [id number] 02/04 [facility] Outpatient Encounter [id number] [id number] 02/15 [facility] Outpatient Encounter [id number] [id number] 02/16 [facility] Outpatient Encounter [id number] [id number] 02/17 [facility] Outpatient Encounter [id number] [id number] 02/26 [facility] Outpatient Encounter [id number] SHYANN ESCAMILLA 03/02 [facility] QNHP OL DIG ASSMT&MGMT 5-10 [id number] Diagnos is: ICD-10- CM I48.0 Paroxys mal atrial fibrill ation<b r/> ELIAN COOPER 03/12 [facility] Outpatient Encounter [id number] 03/12 [facility] Outpatient Encounter [id number] 03/18 [facility] Outpatient Encounter [id number] 03/30 [facility] Outpatient Encounter [id number] 04/05 [facility] Outpatient Encounter [id number] 04/08 [facility] Outpatient Encounter [id number] 04/09 [facility] Outpatient Encounter [id number] Diagnos is: ICD-10- CM B20 Human immunod eficien cy virus [HIV] disease
OSWALDO EGAN 04/14 [facility] Outpatient Encounter [id number] 04/16 [facility] Outpatient Encounter [id number] 04/20 [facility] Outpatient Encounter [id number] LEE REGALADO 04/23 [facility] Outpatient Encounter [id number] SAM STRICKLAND 05/06 [facility] OFFICE O/P EST MOD 30 MIN [id number] Diagnos is: ICD-10- CM N17.9 Acute kidney failure , unspeci fied
NANCY JAIMES 05/11 [facility] Outpatient Encounter [id number] 05/25 [facility] Outpatient Encounter [id number] 05/25 [facility] Outpatient Encounter [id number] 05/26 [facility] Outpatient Encounter [id number] [id number] 05/27 [facility] HOSPITAL OFFICE O/P EST LOW 20 MIN [id number] Diagnos is: ICD-10- CM M25.569 Pain in unspeci fied knee
ANA,RASHID L L 05/27 [place] Outpatient Encounter [id number] 05/27 [facility] Outpatient Encounter [id number] 05/31 [facility] Outpatient Encounter [id number] 05/31 [facility] Outpatient Encounter [id number] 05/31 [facility] Outpatient Encounter [id number] 05/31 [facility] Outpatient Encounter [id number] 06/01 [facility] Social History Combined list of available smoking, tobacco, and other social history from Department of Defense and Veterans Affairs facilities. Social History Type Response Date Comment Source Tobacco smoking status [facility]-TOBACCO FORMER USER 12/10/2023 [facility] History of tobacco use [place]-TOBACCO QUIT 15 YRS OR MORE 12/10/2023 [facility] History of tobacco use [facility] FORMER US[facility] 08/13/2022 [facility] History of tobacco use [facility]-TOBACCO FORMER USER 04/03/2021 [facility] History of tobacco use OK-TOBACCO QUIT 5 TO < 15 YRS 01/18/2020 [facility] History of tobacco use [facility]-TOBACCO FORMER USER 11/27/2018 [facility] History of tobacco use [facility]-TOBACCO FORMER USER 01/23/2018 [facility] History of tobacco use TOBACCO CESSATION MEDS REFUSED 05/01/2017 STOP 10YEARS AGO [facility] History of tobacco use TOBACCO CESSATION MEDS REFUSED 03/18/2016 STOPPED 8YRS AGO [facility] History of tobacco use LIFETIME NON-USER OF TOBACCO 12/16/2013 [facility] Plan of Care List of future care activities from Department of Veterans Affairs facilities. Additional future care activities may be listed in the Assessment and Plan section. Date/Time Care Activity Care Activity Detail Facili ty 10/05/2024 AMBULATORY - NONE AMBULATORY - NONE [facility] 10/19/2024 AMBULATORY - NONE AMBULATORY - NONE [facility] 05/25/2024 Consult Order COMMUNITY [facility]ARE-[facility]THO GENERAL Cons Data Operations Manager's [facility] 06/01/2024 Consult Order CARDIOLOGY OUTPA TIENT Cons Data Operations Manager's [facility] Advance Directives List of completed, amended, or rescinded Advance Directives on record at Department of Veterans Affairs facilities. An actual copy of the Directive is not included. Date Advance Directive Provider Source 12/31/2023 ADVANCE DIRECTIVE DISCUSSION [facility]
--- OUTSIDE RECORDS SUMMARY | 2024-06-02 13:03 | XMS_ITS | Clinical Summary ---
Author Organization [facility] Address [address] [place] [address] Care Team Providers Care Logistics Operations Manager Name Role Phone Concepcion Zeng NP Unavailable Unavailable Gregory Hamlin Unavailable [phone] Chris Hamlin NP Primary Care Provider Enzo Gutierrez MD Unavailable Allergies Active Allergy Reactions Criticality Noted Date Comments Statins Myalgias Low 05/24/2019 Doesn't remember reactions Info from 06/12/21 neuro O.V. Medications vitamin D2, ergocalciferol, [address] UNITS capsule Take 1 capsule (50,000 Units [...] D-Hyaluron Acd (KARYN GLUCOSAMINE PLUS VIT D3) 4443-9578-1.65 MG-UNIT-MG Tab Take by mouth every morning. [...] without hemorrhage 1 06/09/2021 Supraventricular tachycardia (CMS/HCC [facility]/HCC) 1 Tussive syncope 06/12/2021 Overview (11/01/2021): 06/12/21: [...] problems. Assessment & Plan (06/12/2021 3:05 PM AUDIOVISUAL EQUIPMENT OPERATOR): Plan: I have discussed the differential diagnosis [...] plan. Assessment & Plan (06/12/2021 3:04 PM AUDIOVISUAL EQUIPMENT OPERATOR): Plan: Please see ssive syncope for primary diagnostic and treatment plan. Atypical atrial flutter ([facility]) 2019 long-term current use of antiarrhythmic drug 08/2017 Hypertension 09/30/2017 Mixed hyperlipidemia 09/30/2017 long-term current use of anticoagulant 8 Paroxysmal atrial fibrillation ([facility]) 09/29/2017 Family History Medical History Relation Comments [...] on file Legal Sex Male 11:09 PM AUDIOVISUAL EQUIPMENT OPERATOR Gender Identity Male 05/30/2021 2:32 PM AUDIOVISUAL EQUIPMENT OPERATOR Sexual Orientation Not on file Occupation Industry Job Start Date Job End Date [facility] [employer] Not on file Not on file Not [...] Years) 1962 Annual Physical 1965 PHQ-2 (Physician [place]) 1974 Hepatitis C 02/25/1980 DTaP, Tdap and Td Vaccines ( 1 - Tdap) 1981 Zoster Vaccines (1 of 2) 02/25/2012 RSV Immunization or 60+ Years (1 - Risk 60-74 years 1-dose series) 2022 COVID-19 Vaccine (2 - 2023-2 5 season) 2023 07/13/2020 Influenza Adult (#1) 2024 PHQ-2 (Physician [place]) 04/28/2024 Meningococcal B Vaccine Aged Out No [...] this topic Medical Devices Implanted Type Area Cone Runner Device Identifier Shelf Expiration Date Model / Serial / Lot Leg Hardware Ankle Hardware Quattro Link Knotless [place] 4.5mm Peek [place] Implanted:Qty: 1 on 08/15/2022 by Randall Dejesus MD at [facility] Right: Shoulder [employer] 06/18/2027 [id number] / / [id number] Quattro??Link? ?Knotless??Anc hor??4.5mm??Pe ek??[place] Implanted:Qty: 2 on 08/15/2022 by Randall Dejesus MD at [facility] Right: Shoulder [employer] 03/29/2027 [id number] / / [id number] Quattro??Link? ?Knotless??Anc hor??4.5mm??Pe ek??[place] Implanted:Qty: 1 on 08/15/2022 by Randall Dejesus MD at [facility] Right: Shoulder [employer] 06/14/2027 -[id number] / / [id number] Explanted Type Area Cone Runner Device Identifier Shelf Expiration Date Model / Serial / Lot Nick Medical Lock-Stitch Procedure Kit Explanted:Qty: 1 on 08/15/2022 by Randall Dejesus MD at [facility] Right: Shoulder [employer] 03/05/2025 [id number] / / [id number] Broadband Tape Explanted:Qty: 1 on 08/15/2022 by Randall Dejesus MD at [facility] Right: Shoulder [employer] -[id number] / / [id number] Insurance Advance Directives * Full Code (Latest Code Status on File) Date Activated Date Inactivated Comments 11/19/2019 12:28 PM 11/19/2019 5:55 PM * Full Code Date Activated Date Inactivated Comments 07/12/2019 2:23 PM 07/12/2019 7:31 PM * Full Code Date Activated Date Inactivated Comments 09/30/2017 1:13 PM 09/30/2017 7:10 PM Care Teams Logistics Operations Manager Relationship Specialty Start Date End Date Chris Hamlin NP [address] [place] [address] [address], [place] [address] PCP - General NURSE PRACTITIONER 04/08/22 Concepcion Zeng NP Referring Physician CARDIOVASCULAR DISEASE 10/09/17 Gregory Hamlin PA PHYSICIAN COVERAGE SPECIALIST RN 01/17/22 Enzo Gutierrez MD [address] [facility] [place] [address] Consulting Physician INTERVENTIONAL CARDIOLOGY 11/21/22
--- OUTSIDE RECORDS SUMMARY | 2024-06-02 13:03 | XMS_ITS | Encounter Summary ---
Author Organization [facility] Address [facility] [place] [address] Care Team Providers Care Home Service Demonstrator Name Role Phone Azucena, Concepcion Martin NP Unavailable Unavailable Kevin Ontiveros MD Primary Care Provider [phone] Kevin Ontiveros MD Unavailable [phone] Gregory Hamlin Unavailable [phone] Chris Hamlin NP Primary Care Provider [phone] Arcadio Gilmore DO Unavailable [phone] Enzo Gutierrez MD Unavailable Encounter Details Date Type Department Care Team (Late st Contact Info) Description 07/09/2019 [facility] [address] [place] [address] Pool Ragland MD Social History Tobacco Use Types Packs/Day Years Used Date Smoking Tobacco: Former Cigarettes 1 30 0 09/30/1981 - 10/01/2011 Smokeless Tobacco: Former Chew Quit: 2016 Alcohol Use Standard Drinks/Week Comments Yes 0 (1 standard drink = 0.6 oz pur e alcohol) rarely Sex and Gender Information Value Date Recorded Sex Assigned at Not on file Legal Sex Male 11:09 PM HAND SEWER Gender Identity Male 05/30/2021 2:32 PM HAND SEWER Sexual Orientation Not on file documented as [...] Visit Diagnoses Diagnosis SVT (supraventricular tachycardia) (CMS/HCC [facility]) Other specified cardiac dysrhythmias documented in this encounter Additional Health Concerns Infection Onset Date Last Indicated Resolved Time COVID-19 Rule Out 10/29/2019 10/29/2019 10/31/2019 11:25 AM CDT COVID-19 Rule Out 11/16/2019 11/16/2019 11/17/2019 6:05 PM CDT COVID-19 Rule Out 07/31/2021 07/31/2021 07/31/2021 9:01 PM CDT documented as of this encounter Care Teams Home Service Demonstrator Relationship Specialty Start Date End Date Kevin Ontiveros MD [address] [place] [address] PCP - General FAMILY PRACTICE 12/25/17 04/07/22 Kevin Ontiveros MD [address] [place] [address] PCP - [place] PROVIDER FAMILY PRACTICE 12/25/17 04/07/22 Chris Hamlin NP [address], [place] [address] PCP - General NURSE PRACTITIONER 04/08/22 Concepcion Zeng NP Referring Physician CARDIOVASCULAR DISEASE 10/09/17 Gregory Hamlin PA [address] [place] [address] PHYSICIAN TOUR BUS DRIVER/GUIDE 01/17/22 Arcadio Gilmore DO [address], [place] [address] Consulting Physician CARDIOVASCULAR DISEASE 05/30/22 Enzo Gutierrez MD [facility] [address] [facility] [place] [address] Consulting Physician INTERVENTIONAL CARDIOLOGY 11/21/22 documented as of this encounter
--- OUTSIDE RECORDS SUMMARY | 2024-06-02 13:03 | XMS_ITS | Encounter Summary ---
Author Organization [facility] Address [facility] [place] [address] Care Team Providers Care Clinical Quality Assurance Associate Name Role Phone Azucena, Concepcion Martin NP Unavailable Unavailable Kevin Ontiveros MD Primary Care Provider [phone] Kevin Ontiveros MD Unavailable [phone] Gregory Hamlin Unavailable [phone] Chris Hamlin NP Primary Care Provider Arcadio Gilmore DO Unavailable [phone] Enzo Gutierrez MD Unavailable Encounter Details Date Type Department Care Team (Late st Contact Info) Description 05/04/2019 Abstract [facility] [address] [place] [address] Pool Ragland MD Social History Tobacco Use Types Packs/Day Years Used Date Smoking Tobacco: Former Cigarettes 1 30 0 09/30/1981 - 10/01/2011 Smokeless Tobacco: Former Chew Quit: 2016 Alcohol Use Standard Drinks/Week Comments Yes 0 (1 standard drink = 0.6 oz pur e alcohol) rarely Sex and Gender Information Value Date Recorded Sex Assigned at Not on file Legal Sex Male 11:09 PM SPACE SCHEDULER Gender Identity Male 05/30/2021 2:32 PM SPACE SCHEDULER Sexual Orientation Not on file documented as of this encounter Plan of Treatment Not on file documented as of this encounter Procedures Procedure Name Priority Date/Time Associated Diagnosis Comments CMP (OUTSIDE LAB) Routine 05/03/2019 5:1 5 PM SPACE SCHEDULER CBC W/DIFF AUTOMATED Routine 05/03/2019 5:15 PM SPACE SCHEDULER MAGNESIUM (OUTSIDE LAB) Routine 03/06/2019 3:20 PM SPACE SCHEDULER THYROID PANEL Routine 03/06/2019 documented in this encounter Results * (ABNORMAL) CMP (OUTSIDE LAB) (05/03/2019 5:15 PM SPACE SCHEDULER) SODIUM S/P/B 140 136 - 145 POTASSIUM [...] 23 0 - 100 05/03/2019 5:15 PM SPACE SCHEDULER us Doc [facility] Abstract LAB-OUTSIDE/ABSTRACTED Final Result * (ABNORMAL) CBC W/DIFF AUTOMATED (05/03/2019 5:15 PM SPACE SCHEDULER) WBC 5.2 4.0 - 10.8 RBC 4.64 [...] 0.1 0.0 - 0.5 05/03/2019 5:15 PM SPACE SCHEDULER us Doc [facility] Abstract LABORATORY Final Result * MAGNESIUM (OUTSIDE LAB) (03/06/2019 3:20 PM SPACE SCHEDULER) MAGNESIUM 1.9 03/06/2019 3:20 PM SPACE SCHEDULER us Doc [facility] Abstract LAB-OUTSIDE/ABSTRACTED Final Result [...] documented as of this encounter Care Teams Clinical Quality Assurance Associate Relationship Specialty Start Date End Date Kevin Ontiveros MD [address] [place] [address] PCP - General FAMILY PRACTICE 12/25/17 04/07/22 Kevin Ontiveros MD [address] [place] [address] PCP - [place] PROVIDER FAMILY PRACTICE 12/25/17 04/07/22 Chris Hamlin NP [address], [place] [address] PCP - General NURSE PRACTITIONER 04/08/22 Concepcion Zeng TEAROOM HOSTESS Referring Physician CARDIOVASCULAR DISEASE 10/09/17 Gregory Hamlin PA [address] [place] [address] PHYSICIAN INSULATION WORKER 01/17/22 Arcadio Gilmore DO [address] [place], [place] [address] Rd [address], [place] [address] Consulting Physician CARDIOVASCULAR DISEASE 05/30/22 Enzo Gutierrez MD [facility] E [facility] [place] [address] Consulting Physician INTERVENTIONAL CARDIOLOGY 11/21/22 documented as of this encounter
--- OUTSIDE RECORDS SUMMARY | 2024-06-02 13:03 | XMS_ITS | Encounter Summary ---
Author Organization [facility] Address [address] [place] [address] Care Team Providers Care Arborist Name Role Phone Concepcion Zeng NP Unavailable Unavailable Gregory Hamlin Unavailable [phone] Chris Hamlin BURNER TECHNICIAN Primary Care Provider Arcadio Gilmore DO Unavailable [phone] Enzo Gutierrez MD Unavailable Encounter Details Date Type Department Care Team (Late st Contact Info) Description 07/25/2022 Prep for Procedure [facility]s Pre-Admission Testing [address] [facility] [place] [address] Nehemias Dejesus MD [address] [place] [address] Social History Tobacco Use Types [...] on file Legal Sex Male 11:09 PM HEAD OF MARKETING Gender Identity Male 05/30/2021 2:32 PM HEAD OF MARKETING Sexual Orientation Not on file Occupation Industry Job Start Date Job End Date retired [employer] Not on file Not on file Not on file documented as of this encounter Plan of Treatment Not on file documented as of this encounter Results * PARTIAL THROMBOPLASTIN TIME,PTT (08/13/2022 11:00 AM CDT) PTT 34.2 26.4 - 37.3 SEC 08/13/2022 11:21 AM CDT [facility] 08/13/2022 11:0 0 AM CDT us Nehemias Dejesus MD LABORATORY Final Resul t Performing Organization Address [facility] de Phone Number [facility] [address] [place] [address], * (ABNORMAL) PROTIME/INR, VENOUS (08/13/2022 11:00 AM CDT) PROTIME 13.7(H) 9.8 - 12.5 SEC 08/13/2022 11:21 AM CDT [facility] INR 1.2 08/13/2022 11:21 AM CDT [facility] Comment: TREATMENT OR PROPHYLAXIS AGAINST: ?? THERAPEUTIC RANGE (INR): ?VENOUS THROMBOSIS ? 2.0-3.0 ?PULMONARY EMBOLUS ? 2.0-3.0 ?? MECHANICAL PROSTHETIC VALVES ? 2.5-3.5 08/13/2022 11:0 0 AM CDT us Nehemias Dejesus MD LABORATORY Final Resul t Performing Organization Address [facility] [address] [facility] Co de Phone Number [facility] [address] [place] [address], * (ABNORMAL) COMPREHENSIVE METABOLIC PANEL (08/13/2022 11:00 AM CDT) SODIUM S/P/B 139 136 - 145 MMOL/L 08/13/2022 11:[address] [facility] POTASSIUM S/P/B 4.1 3.6 - 5.0 MMOL/L 08/13/2022 11:[address] [facility] CHLORIDE S/P/B 105 98 - 107 MMOL/L 08/13/2022 11:[address] [facility] CO2 28.4 21.0 - 32.0 MMOL/L 08/13/2022 11:[address] [facility] GLUCOSE 111(H) 70 - 99 MG/DL 08/13/2022 11:[address] [facility] Comment: FASTING GLUCOSE 100 TO 125 MG/DL IS CONSISTENT WITH IMPAIRED FASTING GLUCOSE. FASTING GLUCOSE >125 MG/DL IS CONSISTENT WITH DIABETES. RANDOM GLUCOSE >200 MG/DL WITH HYPERGLYCEMIC SYMPTOMS IS CONSISTENT WITH DIABETES. PER ADA GUIDELINES BUN 20(H) 7 - 18 MG/DL 08/13/2022 11:[address] [facility] CREATININE S/P/B 1.18 0.70 - 1.30 MG/DL 08/13/2022 11:[address] [facility] CALCIUM S/P/B 8.7 8.5 - 10.1 MG/DL 08/13/2022 11:[address] [facility] BILIRUBIN TOTAL S/P/B 0.6 0.2 - 1.0 MG/DL 08/13/2022 11:[address] [facility] Comment: THIS ASSAY IS NOT RECOMMENDED FOR PATIENTS UNDERGOING TREATMENT WITH ELTROMBOPAG DUE TO THE POTENTIAL FOR FALSELY ELEVATED RESULTS. ALKALINE PHOSPHATASE S/P/B 130(H) 45 - 115 U/L 08/13/2022 11:[address] [facility] AST 23 15 - 37 U/L 08/13/2022 11:35 AM CDT [facility] ALT 41 16 - 61 U/L 08/13/2022 11:35 AM T [facility] TOTAL PROTEIN S/P/B 6.6 6.4 - 8.2 G/DL 08/13/2022 11:35 AM T [facility] ALBUMIN S/P/B 3.7 3.4 - 5.0 G/DL 08/13/2022 11:35 AM T [facility] ANION GAP 5.6 5 - 15 MMOL/L 08/13/2022 11:35 AM T [facility] OSMOLALITY (CALC) 291 MOSM/KG 023 11:35 AM T [facility] GFR ESTIMATE 71(L) >90 ML/MIN/1. 73 M2 08/13/2022 11:35 AM T [facility] GFR NOTES GFR REFERENCE S: 08/13/2022 11:35 AM T [facility] Comment: THE ESTIMATED GFR IS CALCULATED [...] Nehemias Dejesus MD LABORATORY Final Resul t [facility] [address] [place] [address], * (ABNORMAL) CBC W/DIFF AUTOMATED (08/13/2022 11:00 AM CDT) [facility] Signature WBC 6.05 4.00 - 10.80 x10'3/uL 08/13/2022 11:10 AM CDT [facility] RBC 5.07 4.50 - 6.10 x10'6/uL 08/13/2022 11:10 AM CDT [facility] HGB 15.7 13.0 - 18.0 G/DL 08/13/2022 11:10 AM CDT [facility] HCT 46.3 37.0 - 52.0 % 08/13/2022 11:10 AM CDT [facility] MCV 91.3 78.0 - 100.0 FL 08/13/2022 11:10 AM CDT [facility] MCH 31.0 27.0 - 31.0 PG 08/13/2022 11:10 AM CDT [facility] MCHC 33.9 33.0 - 36.0 G/DL 08/13/2022 11:10 AM T [facility] RDW 12.6 11.5 - 14.5 % 08/13/2022 11:10 AM CDT [facility] PLT 185 150 - 350 x10'3/uL 08/13/2022 11:10 AM CDT [facility] MPV 8.3 7.4 - 10.4 FL 08/13/2022 11:10 AM T [facility] DIFFERENTIAL TYPE AUTOMATED 08/13/2022 11:10 AM T [facility] SEG NEUTROPHILS 67.2 % 11:10 AM CDT [facility] LYMPHOCYTES 19.8 % 08/13/2022 11:10 AM CDT [facility] MONOCYTES 8.6 % 08/13/2022 11:10 AM CDT [facility] EOSINOPHILS 2.6 % 08/13/2022 11:10 AM CDT [facility] BASOPHILS 1.0 % 08/13/2022 11:10 AM CDT [facility] IMMATURE GRANS % 0.8 % 08/14/19 11:10 AM CDT [facility] NRBC 0.0 % 08/13/2022 11:10 AM CDT [facility] ABS. NEUTROPHILS 4.06 1.60 - 8.30 x10'3/uL 08/13/2022 11:10 AM CDT [facility] ABS. LYMPHOCYTES 1.20 0.80 - 4.70 x10'3/uL 08/13/2022 11:10 AM T [facility] ABS. MONOCYTES 0.52 0.00 - 1.50 x10'3/uL 08/13/2022 11:10 AM CDT [facility] ABS. EOSINOPHILS 0.16 0.00 - 0.40 x10'3/uL 08/13/2022 11:10 AM T [facility] ABS. BASOPHILS 0.06 0.00 - 0.20 x10'3/uL 08/13/2022 11:10 AM T [facility] ABS. IMMATURE GRANULOCYTES 0.05(H) 0.00 - 0.03 x10'3/uL 08/13/2022 11:10 AM T [facility] ABS. NUCLEATED RBC'S 0.00 0.00 x10'3/uL 08/13/2022 11:10 AM T [facility] 08/13/2022 11:0 0 AM CDT Nehemias Dejesus MD LABORATORY Final Resul t [facility] [address] [place] [address], [place] [phone] * XR CHEST PA+LAT (07/29/2022 2:09 PM [...] Total Score: 0 06/12/19 22 2:09 PM HEAD OF MARKETING documented as of this encounter Care Teams Arborist Relationship Specialty Start Date End Date Chris Hamlin NP [address] [place], [place] [address], [place] [address] PCP - General NURSE PRACTITIONER 04/08/22 Concepcion Zeng NP Referring Physician CARDIOVASCULAR DISEASE 10/09/17 Gregory Hamlin PA PHYSICIAN CATEGORY DEVELOPMENT MANAGER 01/17/22 Arcadio Gilmore DO [address] [place], [place] [address], [place] [address] Consulting Physician CARDIOVASCULAR DISEASE 05/30/22 Enzo Gutierrez MD [facility] [address] [facility] [place] [address] Consulting Physician INTERVENTIONAL CARDIOLOGY 11/21/22 documented as of this encounter
--- OUTSIDE RECORDS SUMMARY | 2024-06-02 13:03 | XMS_ITS | Clinical Summary ---
Author Organization [facility] Address [address] [place] [address] Phone Care Team Providers Care Cracking Machine Operator Name Role Phone Chris Hamlin APRN, JENI [...] BLOOD PRESSURE/HEART 1 Active ergocalciferol (VITAMIN D) 69967 UNIT Capsule TAKE ONE CAPSULE BY MOUTH [...] on file Legal Sex Male 3:38 PM TUMBLER PLATER Gender Identity Not on file Sexual Orientation [...] this topic Medical Devices Implanted Type Area Rear Load Truck Driver Device Identifier Shelf Expiration Date Model / Serial / Lot Quattro Link Knotless [place], 4.5mm Peek [place] Implanted:Qty: 1 on 08/22/2021 by Wilman Tapia MD at [facility] Left: Shoulder [employer] 01/29/2026 -[id number] / / [id number] Insurance [facility] Care Teams Cracking Machine Operator Relationship Specialty Start Date End Date Chris Hamlin APRN, TITLE PROCESSOR [address] [place] [address] PCP - General Advanced Practice Nurse 07/23/21
== END 2024-06-02 12:22 | disposition home or self-care (01) ==
PROVIDERS: Emergency Provider Emergency Medicine
DX: M23.92 Unspecified internal derangement of left knee (principal); W00.0XXA Fall on same level due to ice and snow, initial encounter; K21.9 Gastro-esophageal reflux disease without esophagitis; E78.5 Hyperlipidemia, unspecified; I10 Essential (primary) hypertension; I48.91 Unspecified atrial fibrillation; Z87.891 Personal history of nicotine dependence
CPT/HCPCS: 73562; 96372; 99283; J1885

== ENCOUNTER 2024-06-22 17:37 | Emergency (ER) | payer OTHER, SELFPAY ==
[2024-06-22] VITALS (8 sets, daily range): BP systolic 64–125; BP diastolic 47–97; PULSE 91–187; RESP 12–20; TEMP 36.4; O2SAT 98–100
--- NOTE | ~2024-06-22 | XR_ITS ---
EXAMINATION: XR chest 1V portable Exam Date/Time: 06/22/2024 18:24 [facility]IE DRILLER HISTORY: chest pain, palpitations Comparison: 05/06/2024. RESULT: Lines, tubes, and devices: None. Lungs and pleura: Clear. Calcified right lower lung granuloma. Cardiomediastinal silhouette: Stable. Calcified nodes. Other: No acute osseous or upper abdominal finding. IMPRESSION: No acute cardiopulmonary process. Reviewed, dictated and finalized at location K. OND DIE DRILLER
--- NOTE | 2024-06-22 17:49 | ECG_ITS ---
Test Date: 2024-06-22 17:53:42 Measurements Intervals [place] Rate: 184 P: 0 NE: 0 QRS: -12 QRSD: 124 T: 55 QT: 251 QTc: 439 Interpretive Statements SUPRAVENTRICULAR TACHYCARDIA LEFT VENTRICULAR HYPERTROPHY AND ST-T CHANGE ST-T WAVE ABNORMALITY IN ANTEROLAT/INF LEADS- CONSIDER ISCHEMIA OR RATE RELATED ABNORMAL ECG Compared to ECG 05/06/2024 05:27:26 SINUS RHYTHM NO LONGER PRESENT Electronically Signed On 06-22-2024 18:31:43 QUARANTINE OFFICER by Richard Kaiser D.O.
[2024-06-22] MEDS: ASPIRIN 81 MG CHEWABLE TABLET 324 MG PO (18:01)
[2024-06-22 18:02] LABS: Basophils Absolute Auto 0.1 K/mm3 (0.0-0.1); Basophils Percent Auto 0.8 % (0.2-1.2); Eosinophils Absolute Auto 0.1 K/mm3 (0-0.3); Eosinophils Percent Auto 1.8 % (0-4.4); Hematocrit 46.9 % (42.0-52.0); Hemoglobin 16.1 g/dL (14.0-18.0); Immature Granulocyte Absolute 0.03 K/mm3 (0.00-0.031); Immature Granulocyte Percent A 0.4 % (0-0.5); Lymphocytes Absolute Auto 1.58 K/mm3 (0.9-3.2); Lymphocytes Percent Auto 19.8 % (18.3-44.2); Mean Corpuscular HGB Conc 34.3 g/dl (32-36); Mean Corpuscular Hemoglobin 31.6 pg (26-34); Mean Platelet Volume 8.6 fl (7.4-10.4); Monocytes Absolute Auto 0.7 K/mm3 (0.1-0.6); Monocytes Percent Auto 8.2 % (2.6-8.5); Neutrophils Absolute Auto 5.5 K/mm3 (1.3-6.7); Platelet Count Result 206 k/mm3 (150-375); Red Cell Distribution Width 12.4 % (11.5-14.5)
[2024-06-22] MEDS: SODIUM CHLORIDE 0.9% IV 1,000 ML 999 ML (18:02)
[2024-06-22] MEDS: ADENOSINE IV SOLN 6 MG/2 ML VIAL IV PUSH (18:07)
[2024-06-22] MEDS: ADENOSINE IV SOLN 6 MG/2 ML VIAL 12 MG IV PUSH (18:08)
--- NOTE | 2024-06-22 18:10 | ECG_ITS ---
Test Date: 2024-06-22 18:10:53 Measurements Intervals [place] Rate: 104 P: 57 [place]: 186 QRS: -10 QRSD: 94 T: 52 QT: 334 QTc: 440 Interpretive Statements SINUS TACHYCARDIA LEFT VENTRICULAR HYPERTROPHY MINIMAL Q WAVES- HIGH LATERAL LEADS BORDERLINE ECG Compared to ECG 06/22/2024 17:53:42 Supraventricular tachycardia no longer present ST (T wave) deviation no longer present Electronically Signed On 06-23-2024 10:29:00 FOOD ADVISER by Richard Kaiser D.O.
[2024-06-22 18:12] LABS: Alanine Aminotransferase 49 U/L (6-50); Albumin Level 4.8 g/dL (3.5-5.1); Alkaline Phosphatase 107 U/L (38-126); Anion Gap 11 mmol/L (4-12); Aspartate Amino Transferase 39 U/L (17-59); Bilirubin,Total 0.6 mg/dL (0.2-1.3); Blood Urea Nitrogen 23 mg/dL (9-20); Calcium 9.4 mg/dL (8.4-10.2); Carbon Dioxide 27 mmol/L (22-30); Chloride 104 mmol/L (98-107); Estimated Glomerular Filt Rate 46; Glucose 143 mg/dL (65-110); Lipase 85 U/L (23-300); Potassium 3.8 mmol/L (3.4-5.0); Sodium 142 mmol/L (137-145)
[2024-06-22 18:13] LABS: INR 0.9; Partial Thromboplastin Time 27.6 Seconds (22.3-36.8)
--- NOTE | 2024-06-22 18:19 | ED_ITS ---
HPI - General Adult General Chief complaint: Arrhythmia/Palpitations Stated complaint: palpitations Time Seen by Provider: 06/22/24 17:55 History of Present Illness HPI narrative: Patient is a 62-year-old gentleman who presents emergency department with chief complaint of palpitations. The patient has prior history of SVT and is followed by cardiology both locally and at [facility]. The patient states that today he was feeling okay and suddenly had where his heart started racing the patient states it feels just like whenever he has had SVT before in the past and reports that it usually takes 2 to 3 doses of adenosine to get him to convert Related Data Home Medications ?Medication ?Instructions ?Recorded ?Confirmed ?Last Taken ?Type apixaban 5 mg tablet 5 mg PO BID 02/25/24 02/25/24 02/25/24 History tamsulosin 0.4 mg capsule 0.4 mg PO DAILY 02/25/24 02/25/24 02/25/24 History Allergies Allergy/AdvReac Type Severity Reaction Status Date / Time [id number] Reductase AdvReac Muscle Pain Verified 06/22/24 17:58 Inhibitor Review of Systems 2 Review of Systems: A 10 system review of systems was completed on the patient and is negative except for what is stated in the HPI. Nursing and ancillary documentation was reviewed. [facility] Past Medical History Medical History Urinary hesitancy GERD (gastroesophageal reflux disease) HLD (hyperlipidemia) HTN (hypertension) Atrial fibrillation SVT (supraventricular tachycardia) Surgical History Surgical History History of lumbar fusion L3-L5 History of rotator cuff surgery R 11/2023, L 2021 History of fracture of left hip miriam implant, 2010 History of cardiac radiofrequency ablation Family History Family History Father Acute myocardial infarction Hypertension Sibling Hypertension Social History Social History Smoking packs per day: 1 Smoking cigarettes per day: 20.0 Years smoked: 40 Smoking pack-years: 40.00 Smoking status: Former smoker Tobacco type: cigarettes Second hand tobacco smoke exposure: Yes Additional smoking assessment comments: quit 2003 Alcohol intake: current Substance use: never Do You Feel Safe in your Home?: Yes Lack of Transportation: No Lack of Food: Never True Current Housing: I Have Housing Concerned About Future Housing: No Difficulty Paying Gas/Electric Bills: No Difficulty Paying for Meds: No Currently Unemployed: No Education: Bachelor's Degree Difficulty w/ Childcare or Family Care: No Spiritual care concerns: No Exam 2 Narrative: GENERAL: Well-appearing, well-nourished, and in no acute distress. HEAD: Normocephalic, atraumatic. EYES: PERRLA and EOMI. ENT: Nares clear, no rhinorrhea or epistaxis. Mucous membranes moist. NECK: Supple. CHEST: Clear to auscultation. No respiratory distress. HEART: Tachycardic rate and rhythm. No murmur heard. Normal peripheral pulses. ABDOMEN: Soft, nontender, nondistended, normal active bowel sounds. EXTREMITIES: Normal range of motion. No edema. SKIN: Warm, dry, no rash. NEURO: No focal deficits. Alert and oriented x3. PSYCH: Normal mood and affect. Course Vital Signs Vital signs: Vital Signs Pulse Rate 187 H 06/22/24 17:38 Temperature 36.4 C 06/22/24 17:56 Pulse Rate 92 06/22/24 18:57 Respiratory Rate 20 06/22/24 18:57 Blood Pressure 108/68 06/22/24 18:57 Pulse Oximetry 100 06/22/24 18:57 Medical Decision Making MDM Narrative Medical decision making narrative: Differential diagnosis includes SVT, electrolyte abnormality The patient was chemically cardioverted using adenosine. Patient received 6 mg then 12 mg Vital Signs Vital Signs: Vital Signs Pulse Rate 187 H 06/22/24 17:38 Temperature 36.4 C 06/22/24 17:56 Pulse Rate 92 06/22/24 18:57 Respiratory Rate 20 06/22/24 18:57 Blood Pressure 108/68 06/22/24 18:57 Pulse Oximetry 100 06/22/24 18:57 Lab Data 06/22/24 17:51 06/22/24 17:51 Labs: Lab Results 06/22/24 Range/Units 17:51 WBC 8.0 (4.5-10.0) K/mm3 RBC 5.10 (4.6-6.20) M/mm3 Hgb 16.1 (14.0-18.0) g/dL Hct 46.9 (42.0-52.0) % MCV 92.0 (80-100) fl MCH 31.6 (26-34) pg MCHC 34.3 (32-36) g/dl RDW 12.4 (11.5-14.5) % Plt Count 206 (150-375) k/mm3 MPV 8.6 (7.4-10.4) fl Immature Gran % (Auto) 0.4 (0-0.5) % Neut % (Auto) 69.0 (45.5-73.1) % Lymph % (Auto) 19.8 (18.3-44.2) % Isabela % (Auto) 8.2 (2.6-8.5) % Eos % (Auto) 1.8 (0-4.4) % Baso % (Auto) 0.8 (0.2-1.2) % Lymph # (Auto) 1.58 (0.9-3.2) K/mm3 Isabela # (Auto) 0.7 H (0.1-0.6) K/mm3 Eos # (Auto) 0.1 (0-0.3) K/mm3 Baso # (Auto) 0.1 (0.0-0.1) K/mm3 Abs Immat Gran (auto) 0.03 (0.00-0.031) K/mm3 Absolute Neuts (auto) 5.5 (1.3-6.7) K/mm3 Absolute Nucleated RBC 0.000 (0.0-0.012) K/mm3 Nucleated RBC % 0.0 (0.0-0.2) % PT 13.0 (11.1-14.7) Seconds INR 0.9 APTT 27.6 (22.3-36.8) Seconds Sodium 142 (137-145) mmol/L Potassium 3.8 (3.4-5.0) mmol/L Chloride 104 (98-107) mmol/L Carbon Dioxide 27 (22-30) mmol/L Anion Gap 11 (4-12) mmol/L BUN 23 H (9-20) mg/dL Creatinine 1.53 H (0.7-1.3) mg/dL Estim Creat Clear Calc Not Reportable Estimated GFR 46 L (59 - ) Glucose 143 H (65-110) mg/dL Calcium 9.4 (8.4-10.2) mg/dL Magnesium 2.1 (1.6-2.3) mg/dL Total Bilirubin 0.6 (0.2-1.3) mg/dL AST 39 (17-59) U/L ALT 49 (6-50) U/L Alkaline Phosphatase 107 (38-126) U/L Troponin I 0.021 (0.000-0.034) ng/mL Total Protein 8.0 (6.3-8.2) g/dL Albumin 4.8 (3.5-5.1) g/dL Lipase 85 (23-300) U/L Critical Care Time Critical Care Time Critical Care Time: Yes Total Critical Care Time: 35 Discharge Plan Discharge Clinical Impression: SVT (supraventricular tachycardia) Patient Disposition: Home, Self-Care Condition: Stable Instructions: Antibiotic Form, Supraventricular Tachycardia (ED) Additional Instructions: Please follow-up with your hand drawer in helper as soon as possible Patient Language: Faroese Prescriptions: No Action metoprolol succinate 50 mg tablet extended release 24 hr 50 mg PO DAILY Qty: 30 0RF Rx Instructions: Take IN ADDITION to the 50mg daily you are already taking, for total of 50 mg twice a day. tamsulosin 0.4 mg Capsule 0.4 mg PO DAILY apixaban 5 mg Tablet 5 mg PO BID diltiazem HCl 180 mg Capsule,Ext.Rel 24h Degradable 360 mg PO QAM Qty: 90 0RF hydrocodone-acetaminophen 5-325 mg tablet 1 tablet PO Q6H PRN (Reason: pain) 3 Days Qty: 12 0RF Follow-up/Referrals: [facility] [Primary Care Provider] - Time of Disposition: 19:19
[2024-06-22 18:23] LABS: Troponin I 0.021 ng/mL (0.000-0.034)
[2024-06-22 18:58] LABS: Magnesium 2.1 mg/dL (1.6-2.3)
--- OUTSIDE RECORDS SUMMARY | 2024-06-22 19:02 | XMS_ITS | Encounter Summary ---
Author Organization [facility] Address [address] [place] [address] Care Team Providers Care Human Resources Assistant Name Role Phone Concepcion Zeng NP Unavailable Unavailable Gregory Hamlin Unavailable [phone] Chris Hamlin FISHING TACKLE REPAIRER Primary Care Provider [phone] Arcadio Gilmore DO Unavailable [phone] Enzo Gutierrez MD Unavailable Encounter Details Date Type Department Care Team (Late st Contact Info) Description 07/25/2022 Prep for Procedure [facility] Pre-Admission Testing [address] [place] [address] Nehemias Dejesus MD [address] [place] [address] Social History Tobacco Use Types [...] on file Legal 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 Gender Identity Male 05/30/2021 2:32 PM 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 Sexual Orientation Not on file Occupation Industry Job Start Date Job End Date retired [employer] Not on file Not on file Not on file documented as of this encounter Plan of Treatment Not on file documented as of this encounter Results * PARTIAL THROMBOPLASTIN TIME,PTT (08/13/2022 11:00 AM CDT) PTT 34.2 26.4 - 37.3 SEC 08/13/2022 11:21 AM CDT [facility] 08/13/2022 11:0 0 AM CDT us Nehemias Dejesus MD LABORATORY Final Resul t Performing Organization Address [facility] Co de Phone Number [facility] [address] [place] [address], * (ABNORMAL) PROTIME/INR, VENOUS (08/13/2022 11:00 AM CDT) PROTIME 13.7(H) 9.8 - 12.5 SEC 08/13/2022 11:21 AM CDT [facility] INR 1.2 08/13/2022 11:21 AM CDT [facility] Comment: TREATMENT OR PROPHYLAXIS AGAINST: THERAPEUTIC RANGE (INR): VENOUS THROMBOSIS 2.0-3.0 PULMONARY EMBOLUS 2.0-3.0 MECHANICAL PROSTHETIC VALVES 2.5-3.5 08/13/2022 11:0 0 AM CDT us Nehemias Dejesus MD LABORATORY Final Resul t Performing Organization Address [facility] Co de Phone Number [facility] [address] [place] [address], * (ABNORMAL) COMPREHENSIVE METABOLIC PANEL (08/13/2022 11:00 AM CDT) SODIUM S/P/B 139 136 - 145 MMOL/L 08/13/2022 11:35 AM CDT [facility] POTASSIUM S/P/B 4.1 3.6 - 5.0 MMOL/L 08/13/2022 11:35 AM [facility] CHLORIDE S/P/B 105 98 - 107 MMOL/L 08/13/2022 11:35 AM [facility] CO2 28.4 21.0 - 32.0 MMOL/L 08/13/2022 11:35 AM [facility] GLUCOSE 111(H) 70 - 99 MG/DL 08/13/2022 11:35 AM [facility] Comment: FASTING GLUCOSE 100 TO 125 MG/DL IS CONSISTENT WITH IMPAIRED FASTING GLUCOSE. FASTING GLUCOSE >125 MG/DL IS CONSISTENT WITH DIABETES. RANDOM GLUCOSE >200 MG/DL WITH HYPERGLYCEMIC SYMPTOMS IS CONSISTENT WITH DIABETES. PER ADA GUIDELINES BUN 20(H) 7 - 18 MG/DL 08/13/2022 11:35 AM [facility] CREATININE S/P/B 1.18 0.70 - 1.30 MG/DL 08/13/2022 11:35 AM [facility] CALCIUM S/P/B 8.7 8.5 - 10.1 MG/DL 08/13/2022 11:35 AM [facility] BILIRUBIN TOTAL S/P/B 0.6 0.2 - 1.0 MG/DL 08/13/2022 11:35 AM [facility] Comment: THIS ASSAY IS NOT RECOMMENDED FOR PATIENTS UNDERGOING TREATMENT WITH ELTROMBOPAG DUE TO THE POTENTIAL FOR FALSELY ELEVATED RESULTS. ALKALINE PHOSPHATASE S/P/B 130(H) 45 - 115 U/L 08/13/2022 11:35 AM [facility] AST 23 15 - 37 U/L 08/13/2022 11:35 AM [facility] ALT 41 16 - 61 U/L 08/13/2022 11:35 AM [facility] TOTAL PROTEIN S/P/B 6.6 6.4 - 8.2 G/DL 08/13/2022 11:35 AM CDT [facility] ALBUMIN S/P/B 3.7 3.4 - 5.0 G/DL 08/13/2022 11:35 AM CDT [facility] ANION GAP 5.6 5 - 15 MMOL/L 08/13/2022 11:35 AM CDT [facility] OSMOLALITY (CALC) 291 MOSM/KG 023 11:35 AM CDT [facility] GFR ESTIMATE 71(L) >90 ML/MIN/1. 73 M2 08/13/2022 11:35 AM CDT [facility] GFR NOTES GFR REFERENCE S: 08/13/2022 11:35 AM CDT [facility] Comment: THE ESTIMATED GFR IS [...] Nehemias Dejesus MD LABORATORY Final Resul t [facility] [address] [place] [address], * (ABNORMAL) CBC W/DIFF AUTOMATED (08/13/2022 11:00 AM CDT) WBC 6.05 4.00 - 10.80 x10'3/uL 08/13/2022 11:10 AM CDT [facility] RBC 5.07 4.50 - 6.10 x10'6/uL 08/13/2022 11:10 AM T [facility] HGB 15.7 13.0 - 18.0 G/DL 08/13/2022 11:10 AM CDT [facility] HCT 46.3 37.0 - 52.0 % 08/13/2022 11:10 AM T [facility] MCV 91.3 78.0 - 100.0 FL 08/13/2022 11:10 AM T [facility] MCH 31.0 27.0 - 31.0 PG 08/13/2022 11:10 AM [facility] MCHC 33.9 33.0 - 36.0 G/DL 08/13/2022 11:10 AM [facility] RDW 12.6 11.5 - 14.5 % 08/13/2022 11:10 AM T [facility] PLT 185 150 - 350 x10'3/uL 08/13/2022 11:10 AM [facility] MPV 8.3 7.4 - 10.4 FL 08/13/2022 11:10 AM T [facility] DIFFERENTIAL TYPE AUTOMATED 08/13/2022 11:10 AM T [facility] SEG NEUTROPHILS 67.2 % 11:10 AM T [facility] LYMPHOCYTES 19.8 % 08/13/2022 11:10 AM T [facility] MONOCYTES 8.6 % 08/13/2022 11:10 AM T [facility] EOSINOPHILS 2.6 % 08/13/2022 11:10 AM T [facility] BASOPHILS 1.0 % 08/13/2022 11:10 AM CDT [facility] IMMATURE GRANS % 0.8 % 08/14/19 11:10 AM CDT [facility] NRBC 0.0 % 08/13/2022 11:10 AM CDT [facility] ABS. NEUTROPHILS 4.06 1.60 - 8.30 x10'3/uL 08/13/2022 11:10 AM CDT [facility] ABS. LYMPHOCYTES 1.20 0.80 - 4.70 x10'3/uL 08/13/2022 11:10 AM CDT [facility] ABS. MONOCYTES 0.52 0.00 - 1.50 x10'3/uL 08/13/2022 11:10 AM CDT [facility] ABS. EOSINOPHILS 0.16 0.00 - 0.40 x10'3/uL 08/13/2022 11:10 AM CDT [facility] ABS. BASOPHILS 0.06 0.00 - 0.20 x10'3/uL 08/13/2022 11:10 AM CDT [facility] ABS. IMMATURE GRANULOCYTES 0.05(H) 0.00 - 0.03 x10'3/uL 08/13/2022 11:10 AM CDT [facility] ABS. NUCLEATED RBC'S 0.00 0.00 x10'3/uL 08/13/2022 11:10 AM T [facility] 08/13/2022 11:0 0 AM CDT us Nehemias Dejesus MD LABORATORY Final Resul t [facility] [address] 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 documented as of this encounter Care Teams Human Resources Assistant Relationship Specialty Start Date End Date Chris Hamlin NP [address] [place] [address] [address], [place] [address] PCP - General NURSE PRACTITIONER 04/08/22 Concepcion Zeng NP Referring Physician CARDIOVASCULAR DISEASE 10/09/17 Gregory Hamlin PA PHYSICIAN YARN CARRIER 01/17/22 Arcadio Gilmore DO [address] [place] [address] E, [place] [address] Consulting Physician CARDIOVASCULAR DISEASE 05/30/22 Enzo Gutierrez MD [facility] [address] [place] [address] Consulting Physician INTERVENTIONAL CARDIOLOGY 11/21/22 documented as of this encounter
--- OUTSIDE RECORDS SUMMARY | 2024-06-22 19:02 | XMS_ITS | Encounter Summary ---
Author Name [facility] [place] [facility] [facility] [place] Address [address] [place] [address] Care Team Providers Care Hatchery Employee Name Role Phone FARIBA CHEUNG Primary Care Provider Unavailabl e Selected Encounter This section includes the information on record at [place] for the Encounter. Date/Time Encounter Type Encounter Description Reason Provider Source Jun 04, 2024 07:55 AM Outpatient Encounter GENERAL INTERNAL MEDICINE VANITA ESCAMILLA E Encounter Template Text not used by [place] Plan of Treatment: Future Appointments (+ 6 months) and Future Tests (+/- 45 days) The Plan of Treatment section includes future care activities for the patient from all [place] treatmentfacilities. This section includes future appointments and future orders which are active, pending or scheduled. Future Appointments This section includes appointments that were scheduled to occur 6 months from the date of the Encounter, up to a maximum of 20 appointments. The data comes from all [place] treatment facilities. Appointment Date/Time Appointment Type Appointme nt Facility Name Jun 10, 2024 01:05 PM AMBULATORY - NONE [facility] Jun 29, 2024 03:00 PM AMBULATORY - NONE [facility] Jun 29, 2024 03:15 PM AMBULATORY - NONE [facility] Oct 05, 2024 01:00 PM AMBULATORY - NONE [facility] Oct 19, 2024 02:00 PM [...] of theEncounter. The data comes from all [place] treatment facilities. Test Date/Time Test Type Test Details Facility Name May 25, 2024 03:39 PM Consult Order [facility] Cons Personnel [facility] May 25, 2024 03:39 PM Consult Order [facility] Cons Personnel [facility] Jun 01, 2024 02:42 PM Consult Order COMM[facility]ITY CARE-CARDIOLOGY Cons Personnel [facility] Lab Results: +/- 30 days of the encounter This section includes the Chemistry and Hematology Lab Results on record with [place] for the patient. Radiology Reports and Pathology Reports are provided separately, in subsequent sections. Lab Results This section contains the Chemistry/Hematology Results that were resulted 30 days before or 30 daysafter the date of the Encounter. Date/Time Source Result Type Result - Unit Interpretation Reference Range Comment May 27, 2024 02:24 PM [facility] PTH INTCT Specimen Type: PLASMA No comment entered. Ordering Provider: Crystal UP Report Released Date/Time: May 11, 2024 04:06 PM Reporting Lab: [facility] [address] [facility] [address] Performing Lab: [facility] [address] [place] [id number] PTH INTCT 83.4 pg/mL H 18.4-80.1 May 27, 2024 02:[address] [facility] VITAMIN D 25-HYDROXY Specimen Type: SERUM Comment: Deficiency <20, Insufficiency 20-30, Sufficiency 30-100, Toxicity >100 ng/mL Ordering Provider: FARIBA CHEUNG Report Released Date/Time: Apr 23, 2024 08:34 AM Reporting Lab: [facility] [address] [facility] [address] Performing Lab: [facility] [address] [place] [id number] VITAMIN D 25-HYDROXY 51.70 ng/mL 30-100 May 27, 2024 02:24 PM [facility] URINE ALBUMIN/CREAT (RAND URINE) Specimen Type: URINE No comment entered. Ordering Provider: Crystal UP Report Released Date/Time: May 11, 2024 04:06 PM Reporting Lab: [address] [address] Performing Lab: [address] [address] URINE ALBUMIN(RAND URINE) 1.5 mg/dL <2.0 CREAT(RNDM URINE) 210.70 mg/dL 40-278 CREAT RATIO (RNDM URINE) 7 mg/g <30 May 27, 2024 02:[address] [facility] COMPREHENSIVE PNL Specimen Type: PLASMA Comment: eGFR was calculated using the CKD-EPI Creatinine (2020) equation. Ordering Provider: FARIBA CHEUNG Report Released Date/Time: Apr 23, 2024 08:34 AM Reporting Lab: [address] [address] Performing Lab: [address] [address] ANION GAP 12 mmol/L 5-15 EGFR 75 [...] 102 mmol/L 98-109 CREATININE 1.11 mg/dL 0.73-1.18 Advance Directives: All historical and current Section Date Range: From patient's date of to the date document was created. This section includes ALL of a patient's completed or amended [place] Advance and Rescinded Directives. The entries below indicate that a directive exists for the patient, but an actual copy is not included with this document. The data comes from all [place] facilities. Date Advance Directives Provider Source Dec 31, 2023 ADVANCE DIRECTIVE DISCUSSION [facility] [place] [facility] Encounter Notes: All associated encounter notes This section contains the clinical notes associated to the Encounter. Date/Time Encounter Note(s) Provider Source Jun 02, 2024 07:55 AM NONVA NOTE: LOCAL TITLE: [facility] SELF PRESENTING CARE COORD PLAN STANDARD TITLE: NONVA NOTE DATE OF NOTE: JUN 02, 2024@07:55 ENTRY DATE: JUN 04, 2024@07:56:31 AUTHOR: GINNY ERICKSON COSIGNER: URGENCY: STATUS: COMPLETED [facility] SELF PRESENTING CARE COORD PLAN 657 [address] Has ADDENDA Emergency Notification Intake Date Presenting to the Facility: May Method of Contact: Notified from ECR worklist Notification ID: [id number] [facility] Referral #: [id number] Clinical Review [facility] [place] [facility]: [facility] Address: [address] City: [place] State: [place] Zip Code: [address] [facility] Facility Point of Contact: Name: Nicole Braun Chief complaint: Left Knee Pain Primary Diagnosis: Disposition Unknown at time of intake note entry Faxed request for records to above hospital. [facility] ([id number]) is PCP for this . Primary Care Provider: FARIBA CHEUNG Student Union Consultant: BETSY REGALADO/ GINNY ERICKSON ADVANCED KIER DRIER Signed: 06/04/2024 08:04 06/09/2024 ADDENDUM STATUS: COMPLETED Discharge Disposition Date of discharge: May Disposition Discharge to home [place] records sent securely to [place] PCP and RNCM. Alerting PCP team to this note for continuity of care-via teams DC SUMMARY AND RELEVANT RECORDS RECEIVED VIA [employer]. SENT TO [facility] TO BE SCANNED INTO [facility] Discharge Summary Records:SHARED SECURELY WITH PACT RN AND SENT TO [facility] FOR SCANNING Hospital/discharge Summary (per discharge note): PRESENTED TO ED FOR C/O LEFT KNEE PAIN. 10 DAYS AGO PT STATED HE SLIPPED ON ICE AND HIT HIS KNEE. HE WAS SEEN AT URGENT CARE AND TOLD PAIN WAS SECONDARY TO ARTHRITIS. PT PLACED IN KNEE IMMOBILIZER AND PT WAS GIVEN SHORT PRESCRIPTION FOR NORCO TRAMADOL PRESCRIBED IN URGENT CARE IS NOT PROVIDING ADEQUATE PAIN CONTROL Important Medication Changes: Start - HYDROCODONE-ACETAMINOPHEN 5/325MG-1 TAB PO Q6H PRN Stop -N/A Change-N/A *Medication reconciliation needed* Post-Discharge Needs PACT: 1) [facility] PCP follow up N/A PACT Please place the below consults: -F/U W/ORTH Specialty:N/A ([facility] or [facility] internal consults needed for ALL follow up care) Please make addendum confirming consult placement for follow-up care /danny PISANO RN REGISTERED NURSE Signed: 06/09/2024 14:56 06/11/2024 ADDENDUM STATUS: COMPLETED Episode of Care Complete [facility] Consult Appt. on 06/29/24 @ 15:00 AT [facility] [place] /danny PISANO RN REGISTERED NURSE Signed: 06/11/2024 10:27 GINNY ERICKSON [facility]
--- OUTSIDE RECORDS SUMMARY | 2024-06-22 19:02 | XMS_ITS | Clinical Summary ---
Author Organization [facility] Address [address] [place] [address] Care Team Providers Care Diaphragm Builder Name Role Phone Concepcion Zeng NP Unavailable Unavailable Gregory Hamlin Unavailable [phone] Chris Hamlin NP Primary Care Provider [phone] Enzo Gutierrez MD Unavailable Allergies Active Allergy Reactions Criticality Noted Date Comments Statins Myalgias Low 05/24/2019 Doesn't remember reactions Info from 06/12/21 neuro O.V. Medications vitamin D2, ergocalciferol, 91520 UNITS capsule Take 1 capsule (50,000 Units [...] D-Hyaluron Acd (KARYN GLUCOSAMINE PLUS VIT D3) 2722-6321-1.65 MG-UNIT-MG Tab Take by mouth every morning. [...] without hemorrhage 1 06/09/2021 Supraventricular tachycardia (CMS/HCC [facility]/HCC) 1 Tussive syncope 06/12/2021 Overview (11/01/2021): 06/12/21: [...] problems. Assessment & Plan (06/12/2021 3:05 PM SENIOR MANAGING DIRECTOR): Plan: I have discussed the differential diagnosis [...] plan. Assessment & Plan (06/12/2021 3:04 PM SENIOR MANAGING DIRECTOR): Plan: Please see ssive syncope for primary diagnostic and treatment plan. 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 DIRECTOR Gender Identity Male 05/30/2021 2:32 PM SENIOR MANAGING DIRECTOR Sexual Orientation Not on file Occupation Industry Job Start Date Job End Date [employer] [facility] [employer] Not on file Not on file Not on file Last Filed Vital Signs Vital Sign Reading Time Taken Comments Blood Pressure 133/88 08/15/2022 1:30 PM CDT Pulse 69 08/15/2022 1:35 PM CDT Temperature 36.8 C (98.2 F) 08/15/2022 11:14 AM CDT Respiratory Rate 22 08/15/2022 1:35 [...] Years) 1962 Annual Physical 1965 PHQ-2 (Physician Hamilton) 1974 Hepatitis C 02/25/1980 DTaP, Tdap and Td Vaccines ( 1 - Tdap) 1981 Zoster Vaccines (1 of 2) 02/25/2012 RSV Immunization or 60+ Years (1 - Risk 60-74 years 1-dose series) 2022 COVID-19 Vaccine (2 - 2023-2 5 season) 2023 07/13/2020 Influenza Adult (#1) 2024 PHQ-2 (Physician Hamilton) 04/28/2024 Meningococcal B Vaccine Aged Out No [...] this topic Medical Devices Implanted Type Area Adding Machine Operator Device Identifier Shelf Expiration Date Model / Serial / Lot Leg Hardware Ankle Hardware Quattro Link K[place]less [place] 4.5mm [place]ek [place] Implanted:Qty: 1 on 08/15/2022 by Randall Dejesus MD at [facility] Right: [facility] [employer] 06/18/2027 -[id number] / / [id number] Quattro Link Knotless [place] 4.5mm Peek [place] Implanted:Qty: 2 on 08/15/2022 by Randall Dejesus MD at [facility] Right: Shoulder [employer] 03/29/2027 -9145 / / [id number] Quattro Link Knotless [place] 4.5mm Peek [place] Implanted:Qty: 1 on 08/15/2022 by Randall Dejesus MD at [facility] Right: Shoulder [facility] [employer] 06/14/2027 -9145 / / [id number] Explanted Type Area Adding Machine Operator Device Identifier Shelf Expiration Date Model / Serial / Lot Nick Medical Lock-Stitch Procedure Kit Explanted:Qty: 1 on 08/15/2022 by Randall Dejesus MD at [facility] Right: Shoulder [employer] 03/05/2025 CM-[id number] / / [id number] Broadband Tape Explanted:Qty: 1 on 08/15/2022 by Randall Dejesus MD at [facility] Right: Shoulder [employer] CM-[id number] / / [id number] Insurance HEALTHCARE Advance Directives * Full Code (Latest Code Status on File) Date Activated Date Inactivated Comments 11/19/2019 12:28 PM 11/19/2019 5:55 PM * Full Code Date Activated Date Inactivated Comments 07/12/2019 2:23 PM 07/12/2019 7:31 PM * Full Code Date Activated Date Inactivated Comments 09/30/2017 1:13 PM 09/30/2017 7:10 PM Care Teams Diaphragm Builder Relationship Specialty Start Date End Date Chris Hamlin NP [address] [place] [address] E, [place] [address] PCP - General NURSE PRACTITIONER 04/08/22 Concepcion Zeng NP Referring Physician CARDIOVASCULAR DISEASE 10/09/17 Gregory Hamlin PA PHYSICIAN TAPPER HAND 01/17/22 Enzo Gutierrez MD [address] [place] [address] [place] [address] Consulting Physician INTERVENTIONAL CARDIOLOGY 11/21/22
--- OUTSIDE RECORDS SUMMARY | 2024-06-22 19:02 | XMS_ITS | Continuity of Care Document ---
Author Name [facility] Organization [facility] Care Team Providers Care Clinical Application Manager Name Role Phone [facility] Unavailable Unavailable Problems Combined list of problems from Department of Defense and Veterans Affairs facilities. It does not include entries that were removed or entered in error. Problem Status Onset Date Problem Type Date of Resolution Comments Source Arthralgia of the ankle and/or foot Active Condition [facility] Atrial fibrillation Active Condition Dec 31, 2017 Entered By: DEBI CUENCA Comment: S/P ablation 12/25/2017Jun 2018 Entered By: SRINI MAGALLANES Comment: followed by [facility] Benign essential hypertension Active Condition [facility] Cervicalgia Active Condition [facility] Chronic cough Active Condition [facility] Chronic kidney disease stage 3 Active Condition Oct 15, 2018 Entered By: SRINI MAGALLANES Comment: avoids NSAIDS [facility] Chronic Low Back Pain (SCT [id number]) Active Condition [facility] Diverticulitis Active Condition Jun Entered By: SRINI MAGALLANES Comment: 06/25/18 colonoscopy, bx pendingMay 2018 Entered By: JAVON SEYMOUR Comment: 09/08/18 Flex sig, biopsy--benig n tissue, repeat 2 yr [facility] Dysphagia Active Condition [facility] Family social history Active Condition Oct 15, 2018 Entered By: SRINI MAGALLANES Comment: father had ID, smoker, in 50'sJun 2018 Entered By: SRINI MAGALLANES Comment: brother with CVA at age 60Jun 2018 Entered By: SRINI MAGALLANES Comment: 1/2 brother with ID [facility] Gastroesophageal reflux disease Active Condition [facility] H/O: surgery Active Condition Oct [...] HIV - Human Immunodeficiency Virus Infection (SCT 39938403) Active Condition [facility] Hyperlipidemia Active Condition [facility] Long-term current use of anticoagulant [facility] Obesity Active Condition [facility] Obstructive sleep apnea syndrome Active Condition Apr 29, 2016 Entered By: RUTH WHITEHEAD Comment: split night 04/23/16: AHI 11.8/hr, 82% low sat; 5-14cwp [facility] Osteoarthritis of knee Active Condition [facility] Osteoporosis Active Condition Oct 15, 2018 [...] Pain of joint of knee Active Condition [facility] Panic attack Active Condition [facility] Primary subtalar osteoarthritis Active Condition [facility] Sensorineural hearing loss, bilateral [facility] Shoulder pain Active Condition [facility] Social history baseline finding Active Condition [...] CENTER Spinal Stenosis of Lumbar Region (SCT [id number]) Active Condition [facility] TEST RESULTS Active Condition Oct 14, 2018 Entered By: SRINI MAGALLANES Comment: 09/13 colonoscopy normal, repeat 2 years per GI noteJun 2018 Entered By: SRINI MAGALLANES Comment: 10/05/18 bone density, right hip normal, will continue to follow [facility] Thrombocytopenia (SCT [id number]) Active Condition [facility] Tinnitus Active Condition [facility] Vitamin D deficiency Active Condition [facility] Ankle pain Inactive Condition 05/01/2017 [facility] Elevated blood pressure Inactive Condition 05/01/2017 [facility] Hearing loss Inactive Condition 05/01/2017 [facility] Palpitations Inactive Condition 05/01/2017 [facility] Syncope Inactive Condition 05/01/2017 [facility] Diagnosis: ICD-10-CM M25.569 Pain in unspecified knee Active Diagnosis [facility] Diagnosis: ICD-10-CM N17.9 Acute kidney failure, unspecified Active Diagnosis [facility] Diagnosis: ICD-10-CM B20 Human immunodeficiency virus [HIV] disease Active Diagnosis [facility] Diagnosis: ICD-10-CM I48.0 Paroxysmal atrial fibrillation Active Diagnosis [facility] Diagnosis: ICD-10-CM M75.101 Unsp rotatr-cuff tear/ruptr of right shoulder, not trauma Active Diagnosis [facility] Diagnosis: ICD-10-CM Z01.810 Encounter for preprocedural cardiovascular examination Active Diagnosis [facility] Diagnosis: ICD-10-CM F32.5 Major depressive disorder, single episode, in full remission Active Diagnosis [facility] Diagnosis: ICD-10-CM F33.41 Major depressive disorder, recurrent, in partial remission Active Diagnosis [facility] Diagnosis: ICD-10-CM Z79.01 long-term (current) use of anticoagulants Active Diagnosis [facility] Medications Combined list of outpatient medications from Department of Defense and [place] [facility] facilities.Medications provided include 1) outpatient medications from the last 15 months, and 2) patient-reported medications. Medication Details Route Status Patient Instructions Prescription Expires Prescription Number Last Dispense Date Ordering Provider Order Date Order Qty Source ACETAMINOPH EN 500MG TAB TAKE TWO TABLETS BY MOUTH THREE TIMES A DAY NEEDED ORAL ACTIVE HIEN CUENCA 2017 [facility] APIXABAN 5MG TAB TAKE ONE TABLET BY MOUTH TWICE A DAY ORAL ACTIVE 03/13/2025 [id number] OFELIA CHEUNG [address] [facility] APIXABAN 5MG TAB TAKE ONE TABLET BY MOUTH TWICE A DAY ORAL DISCONT INUED 04/20/2024 [id number] DRAKE DIAS 2022 180 [facility] ASPIRIN 81MG TAB,EC TAKE ONE TABLET BY MOUTH EVERY DAY ORAL ACTIVE 04/22/2025 [id number] 4 OFELIA CHEUNG NDERichard 2023 120 [facility] ASPIRIN 81MG TAB,EC TAKE ONE TABLET BY MOUTH EVERY DAY ORAL ACTIVE HIEN CUENCA 2017 [facility] ATORVASTATI N CA 80MG TAB TAKE ONE TABLET BY MOUTH AT BEDTIME CALL YOUR PROVIDER IF YOU HAVE MUSCLE PAIN, TENDERNE SS OR WEAKNESS ORAL ACTIVE 04/22/2025 [id number] 4 OFELIA CHEUNG NDERichard 2023 90 [facility] BICTEGRAVIR 50MG/EMTRIC ITABINE 200MG/TENOF OVIR AF 25MG TAB TAKE 1 TABLET BY MOUTH EVERY DAY FOR INFECTIO N DO NOT MIX WITH MINERALS /MVI FOR ADEQUATE ABSORPTI ON. FOR INFECTIO N DO NOT MIX WITH MINERALS /MVI FOR ADEQUATE ABSORPTI ON. ORAL ACTIVE 02/25/2025 [id number] 5 JULISAINWHA 2023 90 [facility] BICTEGRAVIR 50MG/EMTRIC ITABINE 200MG/TENOF OVIR AF 25MG TAB TAKE 1 TABLET BY MOUTH EVERY DAY FOR INFECTIO N DO NOT MIX WITH MINERALS /MVI FOR ADEQUATE ABSORPTI ON. FOR INFECTIO N DO NOT MIX WITH MINERALS /MVI FOR ADEQUATE ABSORPTI ON. ORAL DISCONT INUED 08/08/2024 [id number] 4 JULISAINLOUISA 2023 90 [facility] BICTEGRAVIR 50MG/EMTRIC ITABINE 200MG/TENOF OVIR AF 25MG TAB TAKE 1 TABLET BY MOUTH EVERY DAY FOR INFECTIO N DO NOT MIX WITH MINERALS /MVI FOR ADEQUATE ABSORPTI ON. FOR INFECTIO N DO NOT MIX WITH MINERALS /MVI FOR ADEQUATE ABSORPTI ON. ORAL DISCONT INUED 03/21/2024 [id number] 3 JULISA,INWHA 2022 90 [facility] BUSPIRONE HCL 5MG TAB TAKE ONE TABLET BY MOUTH TWICE A DAY FOR ANXIETY ORAL ACTIVE 09/12/2024 [id number] 4 Omar MARCOS IGISHA 2023 180 [facility] BUSPIRONE HCL 5MG TAB TAKE ONE TABLET BY MOUTH TWICE A DAY FOR ANXIETY ORAL DISCONT INUED BY PROVIDE R 06/12/2024 [id number] 4 Omar MARCOS IGISHA 2023 120 [facility] BUSPIRONE HCL 5MG TAB TAKE ONE TABLET BY MOUTH TWICE A DAY FOR ANXIETY ORAL DISCONT INUED 05/15/2024 [id number] LUIS DIAS [facility] PUJA 2023 120 [facility] CALCITRIOL 0.25MCG CAP TAKE ONE CAPSULE BY MOUTH DAILY ORAL ACTIVE 04/22/2025 [id number] 4 OFELIA CHEUNG NDER 2023 90 [facility] DICLOFENAC NA 1% GEL,TOP APPLY 4 GRAMS TOPICALL Y FOUR TIMES A DAY -DON'T EXCEED 16 GRAMS DAILY TO ANY AFFECTED LEG AREA. DON'T EXCEED 8 GRAMS DAILY TO ANY AFFECTED ARM AREA. DON'T EXCEED A TOTAL DOSE OF 32 GRAMS DAILY OVER ALL AREAS. *USE DOSING CARD TO MEASURE DOSE.* TOPICA L ACTIVE 05/28/2025 [id number] 5 ANA,NICO AL L 2024 100 [facility] DILTIAZEM (EQV-TIAZAC AB4) 240MG 24HR CAP TAKE ONE CAPSULE BY MOUTH EVERY DAY FOR BLOOD PRESSURE /HEART ORAL DISCONT INUED 07/31/2023 [id number] 3 TONY MUSE H 2022 30 [facility] DILTIAZEM (EQV-TIAZAC AB4) 240MG 24HR CAP TAKE ONE CAPSULE BY MOUTH EVERY DAY FOR BLOOD PRESSURE /HEART ORAL 05/15/2024 [id number] LUIS DIAS JAMEY PUJA 2023 30 [facility] ERGOCALCIFE ROL 1,250MCG (50,000UNIT ) CAP TAKE ONE CAPSULE BY MOUTH ONCE WEEKLY ON FRIDAY FOR VITAMIN D- SUPPLEME NT ORAL DISCONT INUED BY PROVIDE R 12/26/2024 [id number] 4 LEONA HOBBS 2023 13 [facility] ERGOCALCIFE ROL 1,250MCG (50,000UNIT ) CAP TAKE ONE CAPSULE BY MOUTH ONCE WEEKLY ON FRIDAY FOR VITAMIN D- SUPPLEME NT ORAL DISCONT INUED 01/07/2024 [id number] 4 LEONA HOBBS 2022 13 [facility] FOLIC ACID 1MG TAB TAKE ONE TABLET BY MOUTH DAILY ORAL ACTIVE 04/22/2025 [id number] OFELIA CHEUNG NDER 2023 90 [facility] METOPROLOL SUCCINATE 50MG TAB,SA TAKE ONE TABLET BY MOUTH NIGHTLY FOR BLOOD PRESSURE ORAL ACTIVE 12/18/2024 [id number] 5 LEONA HOBBS 2023 90 [facility] METOPROLOL SUCCINATE 50MG TAB,SA TAKE ONE TABLET BY MOUTH NIGHTLY FOR BLOOD PRESSURE ORAL DISCONT INUED 11/14/2023 [id number] 4 LEONA HOBBS 2022 90 [facility] MULTIVITAMI NS W/MINERALS CAP/TAB TAKE 1 CAP/TAB BY MOUTH DAILY ORAL ACTIVE 04/22/2025 [id number] 4 OFELIA CHEUNG NDER 2023 100 [facility] PANTOPRAZOL E NA 40MG TAB,EC TAKE ONE TABLET BY MOUTH EVERY DAY ORAL ACTIVE 12/18/2024 [id number] 5 LEONA HOBBS 2023 90 [facility] PANTOPRAZOL E NA 40MG TAB,EC TAKE ONE TABLET BY MOUTH EVERY DAY ORAL DISCONT INUED 11/14/2023 [id number] 4 LEONA HOBBS 2022 90 [facility] POTASSIUM CHLORIDE 20MEQ TAB,SA (DISPERSIBL E) TAKE ONE TABLET BY MOUTH DAILY FOR POTASSIU M SUPPLEME NT ORAL 05/08/2024 [id number] 4 LEONA HOBBS 2023 90 [facility] ROSUVASTATI N CA 20MG TAB TAKE ONE TABLET BY MOUTH EVERY DAY CALL YOUR PROVIDER IF YOU HAVE MUSCLE PAIN, TENDERNE SS OR WEAKNESS ORAL DISCONT INUED BY PROVIDE R 03/19/2025 [id number] DANELLE RACHEL 2023 90 [facility] TAMSULOSIN HCL 0.4MG CAP TAKE ONE CAPSULE BY MOUTH EVERY EVENING TAKE 30 MINUTES AFTER A MEAL ORAL ACTIVE 10/01/2024 [id number] 5 FRANKY JOHNSON 2023 90 [facility] TAMSULOSIN HCL 0.4MG CAP TAKE ONE CAPSULE BY MOUTH EVERY EVENING TAKE 30 MINUTES AFTER A MEAL ORAL DISCONT INUED (EDIT) 05/15/2024 [id number] 4 DRAKE DIAS 2023 30 [facility] THIAMINE 100MG TAB TAKE ONE TABLET BY MOUTH DAILY ORAL ACTIVE 04/22/2025 [id number] 4 OFELIA CHEUNG NDERichard 2023 100 [facility] VENLAFAXINE HCL 150MG 24HR CAP,SA TAKE ONE CAPSULE BY MOUTH DAILY FOR DEPRESSI ON WITH FOOD - MOOD ORAL ACTIVE 12/26/2024 [id number] 5 Omar MARCOS 2023 90 [facility] VENLAFAXINE HCL 150MG 24HR CAP,SA TAKE ONE CAPSULE BY MOUTH DAILY FOR DEPRESSI ON WITH FOOD - MOOD ORAL DISCONT INUED 09/12/2024 [id number] 4 Omar MARCOS 2023 90 [facility] VENLAFAXINE HCL 150MG 24HR CAP,SA TAKE ONE CAPSULE BY MOUTH DAILY WITH FOOD - MOOD ORAL DISCONT INUED BY PROVIDE R 06/12/2024 [id number] Omar MARCOS 2023 60 [facility] Allergies, Adverse Reactions, Alerts Combined list of allergies from Department of Defense and Veterans Affairs facilities. It does not include entries that were removed or entered in error. Substance Category Reaction Severity Reaction type Status Date Reported Comments Source ATORVASTATIN Propensity to adverse reactions to drug (finding) Muscle pain active 6 [facility] ATORVASTATIN Propensity to adverse reactions to drug (finding) active 7 ALLY RODRIGUEZ [facility] PRAVASTATIN Propensity to adverse reactions to drug (finding) Muscle pain active 8 [facility] Immunizations Combined list of available immunizations from the Department of Defense and Veterans Affairs facilities. Immunization Series Date Given Administered By Site Reaction Lot Number CVX Code Drug Glue Bone Drier Status Comments Source INFLUENZA, SPLIT VIRUS, TRIVALENT, PF 2024 MYERS,PRISC ILLA KATELYNN LEFT DELTO ID [id number] 140 complet [facility] TDAP 2024 MYERS,PRISC ILLA KATELYNN RIGHT DELTO ID [id number] 115 complet [facility] INFLUENZA, INJECTABLE, QUADRIVALENT, PRESERVATIVE FREE 2023 PERKINSRENNY RY LEFT DELTO ID [id number] 150 complet [facility] INFLUENZA, INJECTABLE, QUADRIVALENT, PRESERVATIVE FREE 2021 150 complet ed [facility] ZOSTER RECOMBINANT 2 2021 187 complet ed [facility] INFLUENZA, INJECTABLE, QUADRIVALENT, PRESERVATIVE FREE 2020 150 complet [facility] ZOSTER RECOMBINANT 1 2020 187 complet [facility] COVID-19 (SHANNAN), VECTOR-NR, RS-AD26, PF, 0.5 ML 1 2020 212 complet ed [facility] INFLUENZA, INJECTABLE, QUADRIVALENT, PRESERVATIVE FREE 2019 150 complet ed [facility] HEP A, ADULT 2 2018 52 complet ed [facility] INFLUENZA, INJECTABLE, QUADRIVALENT, PRESERVATIVE FREE 2018 150 complet ed [facility] MENINGOCOCCAL MCV4P 2018 114 complet ed [facility] HEP A, ADULT 1 2018 52 complet ed [facility] INFLUENZA, INJECTABLE, QUADRIVALENT, PRESERVATIVE FREE 2017 150 complet ed [facility] INFLUENZA, SEASONAL, INJECTABLE, PRESERVATIVE FREE 2016 140 complet ed Right Deltoid 0.5ml IM [facility] INFLUENZA, SEASONAL, INJECTABLE, PRESERVATIVE FREE 2015 140 complet ed Right Deltoid 0.5ml IM [facility] INFLUENZA, UNSPECIFIED FORMULATION [address] [facility] INFLUENZA, UNSPECIFIED FORMULATION 2015 88 complet ed Right Deltoid 0.5ml IM [facility] PNEUMOCOCCAL POLYSACCHARID E PPV23 2015 33 complet ed [facility] PNEUMOCOCCAL CONJUGATE PCV 13 2014 133 complet ed [facility] INFLUENZA, UNSPECIFIED FORMULATION 2013 88 complet ed Right Deltoid 0.5ml IM [facility] TDAP 2013 115 complet ed Right Deltoid 0.5ml IM [facility] INFLUENZA, UNSPECIFIED FORMULATION 2001 88 complet ed Left Deltoid 0.5ml IM [facility] PNEUMOCOCCAL POLYSACCHARID E PPV23 2001 33 complet ed Right Deltoid [facility] INFLUENZA, UNSPECIFIED FORMULATION 1998 88 complet ed [facility] TD(ADULT) UNSPECIFIED FORMULATION 1997 139 complet ed [facility] Results Combined list of recent chemistry, hematology and other laboratory results from Department of Defense and Veterans Affairs, ranging from 15 months to all on record, depending upon the facility. Order Name Results Value Reference Range Date Interpretation Specimen Comments Source COMPREHEN TIMI PNL ANION GAP IN SERUM OR PLASMA 12 mmol/L 5 - 15 05/27 Specimen Type: PLASMA Comment: eGFR was calculated using the CKD-EPI Creatinine (2020) equation. Ordering Provider: CROW CHEUNG ER Report Released Date/Time: Apr 23, 2024 08:34 AM Reporting Lab: [facility] [address] [facility] [address] Performing Lab: [facility] [address] [facility] [address] [facility] COMPREHEN SIVIsa PNL GLOMERULAR FILTRATION RATE/1.73 SQ M.PREDICTED [VOLUME RATE/AREA] IN SERUM, PLASMA OR BLOOD BY CREATININE- BASED FORMULA (CKD-EPI 2020) 75 mL/min /{1.73 _m2} 60 05/27 Specimen Type: PLASMA Comment: eGFR was calculated using the CKD-EPI Creatinine (2020) equation. Ordering Provider: CROW CHEUNG ER Report Released Date/Time: Apr 23, 2024 08:34 AM Reporting Lab: [facility] [address] [facility] [address] Performing Lab: [facility] [address] [facility] [address] [facility] COMPREHEN SIVE PNL GLUCOSE [MASS/VOLUM E] IN SERUM OR PLASMA 105 mg/dL 70 - 99 05/27 H Specimen Type: PLASMA Comment: eGFR was calculated using the CKD-EPI Creatinine (2020) equation. Ordering Provider: CROW CHEUNG ER Report Released Date/Time: Apr 23, 2024 08:34 AM Reporting Lab: [address] [address] Performing Lab: [address] [address] [facility] SIVE PNL POTASSIUM [MOLES/VOLU ME] IN SERUM OR PLASMA 4.0 mmol/L 3.5 - 4.7 05/27 Specimen Type: PLASMA Comment: eGFR was calculated using the CKD-EPI Creatinine (2020) equation. Ordering Provider: CROW CHEUNG ER Report Released Date/Time: Apr 23, 2024 08:34 AM Reporting Lab: [address] [address] Performing Lab: [address] [phone] [facility] PNL SODIUM [MOLES/VOLU ME] IN SERUM OR PLASMA 139 mmol/L 136 - 145 05/27 Specimen Type: PLASMA Comment: eGFR was calculated using the CKD-EPI Creatinine (2020) equation. Ordering Provider: CROW CHEUNG ER Report Released Date/Time: Apr 23, 2024 08:34 AM Reporting Lab: [address] [phone] Performing Lab: [address] [phone] [facility] PNL BILIRUBIN.T OTAL [MASS/VOLUM E] IN SERUM OR PLASMA 0.7 mg/dL 0.2 - 1.2 05/27 Specimen Type: PLASMA Comment: eGFR was calculated using the CKD-EPI Creatinine (2020) equation. Ordering Provider: CROW CHEUNG ER Report Released Date/Time: Apr 23, 2024 08:34 AM Reporting Lab: [address] [address] Performing Lab: [address] [phone] [facility] PNL PROTEIN [MASS/VOLUM E] IN SERUM OR PLASMA 7.1 g/dL 5.7 - 8.2 05/27 Specimen Type: PLASMA Comment: eGFR was calculated using the CKD-EPI Creatinine (2020) equation. Ordering Provider: CROW CHEUNG ER Report Released Date/Time: Apr 23, 2024 08:34 AM Reporting Lab: [address] [address] Performing Lab: [address] [address] [facility] PNL ALBUMIN [MASS/VOLUM E] IN SERUM OR PLASMA 4.6 g/dL 3.4 - 5.0 05/27 Specimen Type: PLASMA Comment: eGFR was calculated using the CKD-EPI Creatinine (2020) equation. Ordering Provider: CROW CHEUNG ER Report Released Date/Time: Apr 23, 2024 08:34 AM Reporting Lab: [address] [address] Performing Lab: [address] [address] [facility] PNL ALKALINE PHOSPHATASE [ENZYMATIC ACTIVITY/VO LUME] IN SERUM OR PLASMA 150 U/L 45 - 117 05/27 H Specimen Type: PLASMA Comment: eGFR was calculated using the CKD-EPI Creatinine (2020) equation. Ordering Provider: CROW CHEUNG ER Report Released Date/Time: Apr 23, 2024 08:34 AM Reporting Lab: [address] [phone] Performing Lab: [address] [address] [facility] PNL ALANINE AMINOTRANSF ERASE [ENZYMATIC ACTIVITY/VO LUME] IN SERUM OR PLASMA 47 U/L 10 - 65 05/27 Specimen Type: PLASMA Comment: eGFR was calculated using the CKD-EPI Creatinine (2020) equation. Ordering Provider: CROW CEHUNG ER Report Released Date/Time: Apr 23, 2024 08:34 AM Reporting Lab: [address] [phone] Performing Lab: [address] [address] [facility] PNL ASPARTATE AMINOTRANSF ERASE [ENZYMATIC ACTIVITY/VO LUME] IN SERUM OR PLASMA 35 U/L 10 - 37 05/27 Specimen Type: PLASMA Comment: eGFR was calculated using the CKD-EPI Creatinine (2020) equation. Ordering Provider: CROW CHEUNG ER Report Released Date/Time: Apr 23, 2024 08:34 AM Reporting Lab: [address] [address] Performing Lab: [address] [address] [facility] PNL UREA NITROGEN [MASS/VOLUM E] IN SERUM OR PLASMA 17 mg/dL 7 - 21 05/27 Specimen Type: PLASMA Comment: eGFR was calculated using the CKD-EPI Creatinine (2020) equation. Ordering Provider: CROW CHEUNG ER Report Released Date/Time: Apr 23, 2024 08:34 AM Reporting Lab: [address] [address] Performing Lab: [address] [address] [facility] PNL CALCIUM, TOTAL 9.9 mg/dL 8.7 - 10.4 05/27 Specimen Type: PLASMA Comment: eGFR was calculated using the CKD-EPI Creatinine (2020) equation. Ordering Provider: CROW CHEUNG ER Report Released Date/Time: Apr 23, 2024 08:34 AM Reporting Lab: [address] [address] Performing Lab: [address] [address] [facility] PNL CARBON DIOXIDE, TOTAL [MOLES/VOLU ME] IN SERUM OR PLASMA 25 mmol/L 21 - 32 05/27 Specimen Type: PLASMA Comment: eGFR was calculated using the CKD-EPI Creatinine (2020) equation. Ordering Provider: CROW CHEUNG ER Report Released Date/Time: Apr 23, 2024 08:34 AM Reporting Lab: [facility] [address] [facility] [address] Performing Lab: [facility] [address] [facility] [address] [facility] PNL CHLORIDE [MOLES/VOLU ME] IN SERUM OR PLASMA 102 mmol/L 98 - 109 05/27 Specimen Type: PLASMA Comment: eGFR was calculated using the CKD-EPI Creatinine (2020) equation. Ordering Provider: CROW CHEUNG ER Report Released Date/Time: Apr 23, 2024 08:34 AM Reporting Lab: [facility] [address] [place] [phone] Performing Lab: [facility] [address] [place] [phone] [facility] PNL CREATININE [MASS/VOLUM E] IN URINE 1.11 mg/dL 0.73 - 1.18 05/27 Specimen Type: PLASMA Comment: eGFR was calculated using the CKD-EPI Creatinine (2020) equation. Ordering Provider: CROW CHEUNG ER Report Released Date/Time: Apr 23, 2024 08:34 AM Reporting Lab: [facility] [address] [facility] [address] Performing Lab: [facility] [address] [facility] [address] [facility] PTH INTCT PARATHYRIN. INTACT [MASS/VOLUM E] IN SERUM OR PLASMA 83.4 pg/mL 18.4 - 80.1 05/27 H Specimen Type: PLASMA No comment entered. Ordering Provider: NANCY SANDERSON Report Released Date/Time: May 11, 2024 04:06 PM Reporting Lab: [facility] [address] [facility] [address] Performing Lab: [facility] [address] [facility] [address] [facility] URINE ALBUMIN/C REAT ([facility] URINE) MICROALBUMI N [MASS/VOLUM E] IN URINE 1.5 mg/dL <2.0 - 2.0 05/27 Specimen Type: URINE No comment entered. Ordering Provider: NANCY SANDERSON Report Released Date/Time: May 11, 2024 04:06 PM Reporting Lab: [address] [address] Performing Lab: [address] [address] [facility] URINE ALBUMIN/C REAT ([facility] [facility]INE) CREATININE [MASS/VOLUM E] IN URINE 210.70 mg/dL 40 - 278 05/27 Specimen Type: URINE No comment entered. Ordering Provider: NANCY SANDERSON Report Released Date/Time: May 11, 2024 04:06 PM Reporting Lab: [address] [id number] Performing Lab: [address] [id number] [facility] URINE ALBUMIN/C REAT ([place] [facility]) MICROALBUMI N/CREATININ E [RATIO] IN URINE 7 mg/g <30 - 30 05/27 Specimen Type: URINE No comment entered. Ordering Provider: NANCY SANDERSON Report Released Date/Time: May 11, 2024 04:06 PM Reporting Lab: [address] [address] Performing Lab: [address] [address] [facility] VITAMIN D 25-HYDROX Y 25-HYDROXYV ITAMIN D3 [MASS/VOLUM E] IN SERUM OR PLASMA 51.70 ng/mL 30 - 100 05/27 Specimen Type: SERUM Comment: Deficiency <20, Insufficien cy 20-30, Sufficiency 30-100, Toxicity >100 ng/mL Ordering Provider: CROW CHEUNG Report Released Date/Time: Apr 23, 2024 08:34 AM Reporting Lab: [address] [address] Performing Lab: [address] [address] [facility] COMPREHEN MARCO AE PNL ANION GAP IN SERUM OR PLASMA [...] Mar 12, 2024 08:39 AM Reporting Lab: [address] [address] Performing Lab: [address] [address] [facility] COMPREHEN SIVE PNL GLOMERULAR FILTRATION RATE/1.73 [...] Mar 12, 2024 08:39 AM Reporting Lab: [address] [address] Performing Lab: [address] [address] [facility] COMPREHEN SIVE PNL GLUCOSE [MASS/VOLUM E] [...] Mar 12, 2024 08:39 AM Reporting Lab: [address] [address] Performing Lab: [address] [address] [facility] COMPREHEN SIVE PNL POTASSIUM [MOLES/VOLU ME] [...] Mar 12, 2024 08:39 AM Reporting Lab: [address] [address] Performing Lab: [address] [address] [facility] SIVE PNL SODIUM [MOLES/VOLU ME] [...] Mar 12, 2024 08:39 AM Reporting Lab: [place] [id number] Performing Lab: [place] [address] [place] [address] COMPREHEN SIVE PNL BILIRUBIN.T OTAL [MASS/VOLUM E] [...] Mar 12, 2024 08:39 AM Reporting Lab: [place] [phone] Performing Lab: [address] [address] [facility] COMPREHEN SIVE PNL PROTEIN [MASS/VOLUM E] [...] Mar 12, 2024 08:39 AM Reporting Lab: [place] [phone] Performing Lab: [place] [address] [place] [address] COMPREHEN SIVE PNL ALBUMIN [MASS/VOLUM E] IN [...] Mar 12, 2024 08:39 AM Reporting Lab: [place] [id number] Performing Lab: [place] 2174[address] [facility] COMPREH SIVE PNL ALKALINE PHOSPHATASE [ENZYMATIC ACTIVITY/VO LUME] [...] Mar 12, 2024 08:39 AM Reporting Lab: [address] [address] Performing Lab: [place] [phone] [facility] COMPREHEN SIVE PNL ALANINE AMINOTRANSF ERASE [...] Mar 12, 2024 08:39 AM Reporting Lab: [address] [address] Performing Lab: [place] [phone] [facility] COMPREH SIVE PNL ASPARTATE AMINOTRANSF ERASE [...] Mar 12, 2024 08:39 AM Reporting Lab: [place] [address] Performing Lab: [address] COMPREHEN SIVE PNL UREA NITROGEN [MASS/VOLUM E] [...] Mar 12, 2024 08:39 AM Reporting Lab: [place] [address] Performing Lab: [address] COMPREH SIVE PNL CALCIUM, TOTAL 9.7 mg/dL 8.7 [...] Mar 12, 2024 08:39 AM Reporting Lab: [address] [address] Performing Lab: [address] [address] [facility] COMPREH SIVE PNL CARBON DIOXIDE, TOTAL [MOLES/VOLU ME] [...] Mar 12, 2024 08:39 AM Reporting Lab: [address] [address] Performing Lab: [address] [address] [facility] SIVE PNL CHLORIDE [MOLES/VOLU ME] IN SERUM [...] Mar 12, 2024 08:39 AM Reporting Lab: [address] [address] Performing Lab: [address] [address] [facility] CARMELINA CAPELLAN PNL CREATININE [MASS/VOLUM E] IN [...] Mar 12, 2024 08:39 AM Reporting Lab: [address] [address] Performing Lab: [address] [address] [facility] HIV PCR QUANT (PANEL) HIV 1 RNA [#/VOLUME] (VIRAL LOAD) IN SERUM OR PLASMA BY BHAVAN WITH PROBE DETECTION <20{co pies}/ mL 0 [...] Mar 12, 2024 08:39 AM Reporting Lab: [place] [phone] Performing Lab: [facility] [address] [place] [address] [facility] HIV PCR QUANT (PANEL) HIV 1 [...] Mar 12, 2024 08:39 AM Reporting Lab: [place] [phone] Performing Lab: [facility] [address] [place] [address] [facility] LIPID PNL CHOLESTEROL IN HDL [MASS/VOLUM [...] Mar 12, 2024 08:39 AM Reporting Lab: [place] [address]174[address] Performing Lab: [place] [address] [place] [address] LIPID PNL TRIGLYCERID E [MASS/VOLUM E] IN [...] Mar 12, 2024 08:39 AM Reporting Lab: [place] 217422[address] Performing Lab: [place] [address] [place] [address] LIPID PNL CHOLESTEROL IN LDL [MASS/VOLUM E] IN SERUM OR PLASMA BY DIRECT ASSAY [facility] 03/30 Specimen Type: PLASMA Comment: Low-risk levels [...] Mar 12, 2024 08:39 AM Reporting Lab: [address] [address] Performing Lab: [address] [address] [facility] LIPID PNL CHOLESTEROL [MASS/VOLUM E] IN [...] Mar 12, 2024 08:39 AM Reporting Lab: [address] [address] Performing Lab: [address] [address] [facility] LIPID PNL CHOLESTEROL IN LDL [MASS/VOLUM [...] Mar 12, 2024 08:39 AM Reporting Lab: [address] [address] Performing Lab: [place] [phone] [facility] LYMPH SUBSET PANEL 4 ([id number]) -SCUP CD3 CELLS [#/VOLUME] IN BLOOD 1191 {cells }/uL 570 - 2400 03/30 Specimen Type: BLOOD Comment: INTERPRETIV E INFORMATION : Lymphocyte Subset 4, Pct. and Ratio, WB The CD4 cells are [place] T-cells expressing both CD3 and CD4. The CD8 cells are Cytotoxic T-cells expressing both CD3 and CD8. CD3, CD4 and CD8 percentages are reported as a percent of total lymphocytes . CD4 T-cells levels are a criterion for categorizin g HIV-related clinical conditions by CDC's classDragonfly Systemsat ion system for HIV infection. The measurement [...] and its performance characteris tics determined by [employer]. It has not been cleared or approved by the US Food and Drug Administrat Particle Code. This test was performed in a CLIA certified laboratory and is intended for clinical purposes. Performed By: [facility] [address] [place] [address] Application Technician: Sabino Diaz MD, PhD CLIA Number: [id number] Ordering Provider: OSWALDO EGAN Report Released Date/Time: Mar 12, 2024 08:39 AM Reporting Lab: [address] [address] Performing Lab: [address] [address] [facility] LYMPH SUBSET PANEL 4 ([id number]) -SCUP CD3+CD4+ (T4 HELPER) CELLS [#/VOLUME] IN BLOOD 634 {cells }/uL 430 - 1800 03/30 Specimen Type: BLOOD Comment: INTERPRETIV E INFORMATION : Lymphocyte Subset 4, Pct. and Ratio, WB The CD4 cells are [place] T-cells expressing both CD3 and CD4. The [...] efficacy of treatment. The Public Health Service ([facility]) has recommended that CD4 T-cell levels be monitored every three to six months in all HIV-infecte d persons. This test was developed and its performance characteris tics determined by [employer]. It has not been cleared or approved by the US Food and Drug Administrat Particle Code. This test was performed in a CLIA certified laboratory and is intended for clinical purposes. Performed By: [facility] [address] [place] [address] Application Technician: Sabino Diaz MD, PhD IA Number: [id number] Ordering Provider: OSWALDO EGAN Report Released Date/Time: Mar 12, 2024 08:39 AM Reporting Lab: [facility] [address] [facility] [address] Performing Lab: [facility] [address] [facility] [address] [facility] LYMPH SUBSET PANEL 4 ([id number]) -[facility] CD3+CD8+ (T8 SUPPRESSOR) CELLS [#/VOLUME] IN BLOOD 557 {cells }/uL 210 - 1200 03/30 Specimen Type: BLOOD Comment: INTERPRETIV E INFORMATION : Lymphocyte Subset 4, Pct. and Ratio, WB The CD4 cells are [place] T-cells expressing both CD3 and CD4. The [...] efficacy of treatment. The Public Health Service ([facility]) has recommended that CD4 T-cell levels be monitored every three to six months in all HIV-infecte d persons. This test was developed and its performance characteris tics determined by [employer]. It has not been cleared or approved by the US Food and Drug Administrat Particle Code. This test was performed in a CLIA certified laboratory and is intended for clinical purposes. Performed By: [facility] [address] [place] [address] Application Technician: Sabino Diaz MD, PhD CLIA Number: [id number] Ordering Provider: OSWALDO EGAN Report Released Date/Time: Mar 12, 2024 08:39 AM Reporting Lab: [place] [phone] Performing Lab: [address] [address] [facility] LYMPH SUBSET PANEL 4 ([id number]) -[facility] CD3 CELLS/100 CELLS IN SPECIMEN 84 62 - 87 03/30 Specimen Type: BLOOD Comment: INTERPRETIV E INFORMATION : Lymphocyte Subset 4, Pct. and Ratio, WB The CD4 cells are [place] T-cells expressing both CD3 and CD4. The [...] its performance characteris tics determined by [facility]. It has not been cleared or approved by the US Food and Drug Administrat Particle Code. This test was performed in a CLIA certified laboratory and is intended for clinical purposes. Performed By: [facility] [address] [place] [address] Application Technician: Sabino Diaz MD, PhD CLIA Number: [id number] Ordering Provider: OSWALDO EGAN Report Released Date/Time: Mar 12, 2024 08:39 AM Reporting Lab: [address] [address] Performing Lab: [address] [address] [facility] LYMPH SUBSET PANEL 4 ([id number]) -[facility] CD3+CD4+ (T4 HELPER) CELLS/100 CELLS IN BLOOD 45 32 - 64 03/30 Specimen Type: BLOOD Comment: INTERPRETIV E INFORMATION : Lymphocyte Subset 4, Pct. and Ratio, WB The CD4 cells are [place] T-cells expressing both CD3 and CD4. The [...] efficacy of treatment. The Public Health Service ([facility]) has recommended that CD4 T-cell levels be monitored every three to six months in all HIV-infecte d persons. This test was developed and its performance characteris tics determined by [employer]. It has not been cleared or approved by the US Food and Drug Administrat Particle Code. This test was performed in a CLIA certified laboratory and is intended for clinical purposes. Performed By: [facility] [address] [place] [address] Application Technician: Sabino Diaz MD, PhD CLIA Number: [id number] Ordering Provider: OSWALDO EGAN Report Released Date/Time: Mar 12, 2024 08:39 AM Reporting Lab: [facility] [address] [facility] [address] Performing Lab: [facility] [address] [facility] [address] [facility] LYMPH SUBSET PANEL 4 ([id number]) -[facility] CD3+CD8+ (T8 SUPPRESSOR) CELLS/100 CELLS IN SPECIMEN 39 15 - 46 03/30 Specimen Type: BLOOD Comment: INTERPRETIV E INFORMATION : Lymphocyte Subset 4, Pct. and Ratio, WB The CD4 cells are [place] T-cells expressing both CD3 and CD4. The [...] efficacy of treatment. The Public Health Service ([facility]) has recommended that CD4 T-cell levels be monitored every three to six months in all HIV-infecte d persons. This test was developed and its performance characteris tics determined by [facility]. It has not been cleared or approved by the US Food and Drug Administrat Particle Code. This test was performed in a CLIA certified laboratory and is intended for clinical purposes. Performed By: [facility] [address] [place] [address] Application Technician: aSbino Diaz MD, PhD CLIA Number: [id number] Ordering Provider: OSWALDO EGAN Report Released Date/Time: Mar 12, 2024 08:39 AM Reporting Lab: [address] [address] Performing Lab: [address] [address] [facility] LYMPH SUBSET PANEL 4 ([id number]) -MI[facility] CD3+CD4+ (T4 HELPER) CELLS/CD3+C D8+ (T8 SUPPRESSOR CELLS) CELLS [# RATIO] IN BLOOD 1.15 {ratio } 0.80 - 3.90 03/30 Specimen Type: BLOOD Comment: INTERPRETIV E INFORMATION : Lymphocyte Subset 4, Pct. and Ratio, WB The CD4 cells are [place] T-cells expressing both CD3 and CD4. The [...] by the US Food and Drug Administrat Particle Code. This test was performed in a CLIA certified laboratory and is intended for clinical purposes. Performed By: [facility] [address] [place] [address] Application Technician: Sabino Diaz MD, PhD CLIA Number: [id number] Ordering Provider: OSWALDO EGAN Report Released Date/Time: Mar 12, 2024 08:39 AM Reporting Lab: [facility] [address] [facility] [address] Performing Lab: [address] [address] [facility] LYMPH SUBSET PANEL 4 ([id number]) -[facility] ANNOTATION COMMENT [INTERPRETA TION] NARRATIVE See Note 03/30 Specimen Type: BLOOD Comment: INTERPRETIV E INFORMATION : Lymphocyte Subset 4, Pct. and Ratio, WB The CD4 cells are [place] T-cells expressing both CD3 and CD4. The [...] by the US Food and Drug Administrat Particle Code. This test was performed in a CLIA certified laboratory and is intended for clinical purposes. Performed By: [facility] [address] [place], [place] [id number] Application Technician: Sabino Diaz MD, PhD CLIA Number: [id number] Ordering Provider: OSWALDO EGAN Report Released Date/Time: Mar 12, 2024 08:39 AM Reporting Lab: [facility] [address] [place] [address] Performing Lab: [address] [address] [facility] PHOS PHOS 2.9 mg/dL 2.4 - [...] Mar 12, 2024 08:39 AM Reporting Lab: [address] [address] Performing Lab: [address] [address] [facility] VITAMIN D 25-HYDROX Y 25-HYDROXYV ITAMIN D3 [MASS/VOLUM E] IN SERUM OR PLASMA 48.30 ng/mL 30 - 100 03/30 Specimen Type: SERUM Comment: Deficiency <20, Insufficien cy 20-30, Sufficiency 30-100, Toxicity >100 ng/mL Ordering Provider: OSWALDO EGAN Report Released Date/Time: Mar 12, 2024 08:39 AM Reporting Lab: [address] [address] Performing Lab: [address] [address] [facility] Vital Signs Combined list of inpatient [...] CENTER PULSE OXIMETRY 94 05/27/2024 13:49:34 [facility] WEIGHT 264.4 05/27/2024 13:49:34 [facility] BMI 33 kg/m2 05/27/2024 13:49:34 [facility] PAIN 7 05/27/2024 13:49:34 [facility] TEMPERATURE 97.7 05/27/2024 13:49:34 [facility] PULSE 103 05/27/2024 13:49:34 [facility] RESPIRATION 22 05/27/2024 13:49:34 [facility] SYSTOLIC BLOOD PRESSURE 153 05/11/2024 14:19:31 [facility] DIASTOLIC BLOOD PRESSURE 99 05/11/2024 14:19:31 [facility] PULSE OXIMETRY 94 05/11/2024 14:19:31 [facility] WEIGHT 268 05/11/2024 14:19:31 [facility] BMI 34 kg/m2 05/11/2024 14:19:31 [facility] PAIN 6 05/11/2024 14:19:31 [facility] HEIGHT 75 05/11/2024 14:19:31 [facility] TEMPERATURE 97.5 05/11/2024 14:19:31 [facility] PULSE 70 05/11/2024 14:19:31 [facility] RESPIRATION 20 05/11/2024 14:19:31 [facility] SYSTOLIC BLOOD PRESSURE 153 12/15/2023 13:59:53 [facility] DIASTOLIC BLOOD PRESSURE 104 12/15/2023 13:59:53 [facility] PULSE OXIMETRY 95 12/15/2023 13:59:53 [facility] WEIGHT 269 12/15/2023 13:59:53 [facility] BMI 34 kg/m2 12/15/2023 13:59:53 [facility] PAIN 5 12/15/2023 13:59:53 [facility] HEIGHT 75 12/15/2023 13:59:53 [facility] TEMPERATURE 97.7 12/15/2023 13:59:53 [facility] PULSE 73 12/15/2023 13:59:53 [facility] SYSTOLIC BLOOD PRESSURE 146 12/10/2023 11:45:29 [facility] DIASTOLIC BLOOD PRESSURE 99 12/10/2023 11:45:29 [facility] PULSE OXIMETRY 94 12/10/2023 11:45:29 [facility] WEIGHT 274 12/10/2023 11:45:29 [facility] BMI 34 kg/m2 12/10/2023 11:45:29 [facility] TEMPERATURE 97.8 12/10/2023 11:45:29 [facility] PULSE 76 12/10/2023 11:45:29 [facility] RESPIRATION 16 12/10/2023 11:45:29 [facility] Encounters Combined list of: 1) Encounters from [facility] facilities going backup to the last 18 months, not all [place] inpatient encounters are included; 2) Encounters 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 Location Location Details Encounter Type Encounter Number Reason For Visit Attending Provider ADM Date DC Date Status Disposition Source [facility] OFFICE O/P EST MOD 30-39 MIN [id number] Diagnos is: ICD-10- CM F33.41 Major depress ketty disorde r, recurre nt, in partial remissi on PREETI MARCOS 01/14 [facility] Outpatient Encounter [id number] 01/23 [facility] Outpatient Encounter [id number] 01/23 [facility] Outpatient Encounter [id number] 01/23 [facility] Outpatient Encounter [id number] 01/24 [facility] Outpatient Encounter [id number] 01/24 [facility] Outpatient Encounter [id number] 01/24 [facility] Outpatient Encounter [id number] 01/28 [facility] Outpatient Encounter [id number] 02/27 [facility] QNHP OL DIG ASSMT&MGMT 5-10 [id number] Diagnos is: ICD-10- CM Z79.01 long-term (curren t) use of anticoa BEVERLEY Smith 03/17 [facility] QNHP OL DIG ASSMT&MGMT 5-10 [id number] Diagnos is: ICD-10- CM I48.0 Paroxys mal atrial fibrill ation ELIAN COOPER 04/17 [facility] Outpatient Encounter [id number] 04/18 [facility] Outpatient Encounter [id number] 05/02 [facility] Outpatient Encounter [id number] 05/08 [facility] Outpatient Encounter [id number] 05/08 [facility] Outpatient Encounter [id number] 05/15 [facility] Outpatient Encounter [id number] 05/17 [facility] OFFICE O/P EST MOD 30 MIN [id number] Diagnos is: ICD-10- CM B20 Human immunod eficien cy virus [HIV] disease OSWALDO EGAN 05/20 [facility] Outpatient Encounter [id number] 05/20 [facility] OFFICE O/P EST MOD 30 MIN [id number] Diagnos is: ICD-10- CM N17.9 Acute kidney failure , unspeci fied NANCY JAIMES 05/20 [facility] Outpatient Encounter [id number] 05/20 [facility] Outpatient Encounter [id number] 05/20 [facility] Outpatient Encounter [id number] 05/21 [facility] Outpatient Encounter [id number] 05/21 [facility] Outpatient Encounter [id number] 05/22 [facility] Outpatient Encounter [id number] 05/22 [facility] Outpatient Encounter [id number] 05/23 [facility] Outpatient Encounter [id number] [id number] 05/23 [facility] Outpatient Encounter [id number] 06/12 [facility] Outpatient Encounter [id number] 06/12 [facility] OFFICE O/P EST MOD 30 MIN [id number] Diagnos is: ICD-10- CM F33.41 Major depress ketty disorde r, recurre nt, in partial remissi on [facility] 06/12 [facility] Outpatient Encounter [id number] 08/18 [facility] Outpatient Encounter [id number] 08/18 [facility] Outpatient Encounter [id number] 08/20 [facility] Outpatient Encounter [id number] 08/21 [facility] Outpatient Encounter [id number] 08/26 [facility] Outpatient Encounter [id number] 08/27 [facility] PSYTX W PT W E/M 30 MIN [id number] Diagnos is: ICD-10- CM F32.5 Major depress ketty disorde r, single episode , in full remissi on [facility] 09/[address] [facility] Outpatient Encounter [id number] 09/15 [facility] Outpatient Encounter [id number] 09/30 [facility] Outpatient Encounter [id number] 09/30 [facility] Outpatient Encounter [id number] 10/28 [facility] Outpatient Encounter [id number] 11/09 [facility] Outpatient Encounter [id number] 11/10 [facility] Outpatient Encounter [id number] [id number] 11/10 [facility] Outpatient Encounter [id number] 11/18 [facility] Outpatient Encounter [id number] SHYANN ESCAMILLA 11/25 [facility] Outpatient Encounter [id number] 11/30 [facility] Outpatient Encounter [id number] 12/01 [facility] Outpatient Encounter [id number] 12/01 [facility] Outpatient Encounter [id number] [id number] 12/07 [facility] OFF/OP CONSLTJ NEW/EST HI 55 [id number] Diagnos is: ICD-10- CM Z01.810 Encount er for preproc edural cardiov ascular examina marcella ADHIKARI ID,SHRUTHIA Isa 12/09 [facility] Outpatient Encounter [id number] 12/11 [facility] OFFICE O/P EST MOD 30 MIN [id number] Diagnos is: ICD-10- CM M75.101 Unsp rotatr- cuff tear/ru ptr of right shoulde r, not trauma Lencho JOHNSON 12/14 [facility] Outpatient Encounter [id number] 12/21 [facility] Outpatient Encounter [id number] 12/23 [facility] Outpatient Encounter [id number] [id number] 12/30 [facility] Outpatient Encounter [id number] 01/26 [facility] Brian [facility] Outpatient Encounter [id number] 02/04 [facility]ENT Aaron GARCIA [facility] Outpatient Encounter [id number] 02/15 [facility] Outpatient Encounter [id number] [id number] 02/16 [facility] Outpatient Encounter [id number] [id number] 02/17 [facility] Outpatient Encounter [id number] 02/26 [facility] Outpatient Encounter [id number] [id number] SHYANN ESCAMILLA 03/02 [facility] QNHP OL DIG ASSMT&MGMT 5-10 [id number] Diagnos is: ICD-10- CM I48.0 Paroxys mal atrial fibrill ation ELIAN COOPER 03/12 [facility] Outpatient Encounter [id number] 03/12 [facility] Outpatient Encounter [id number] 03/18 [facility] Outpatient Encounter [id number] [id number] 03/30 [facility] Outpatient Encounter [id number] [id number] 04/05 [facility] Outpatient Encounter [id number] 04/08 [facility] Outpatient Encounter [id number] 04/09 [facility] Outpatient Encounter [id number] Diagnos is: ICD-10- CM B20 Human immunod eficien cy virus [HIV] disease OSWALDO EGAN 04/14 [facility] Outpatient Encounter [id number] 04/16 [facility] Outpatient Encounter [id number] 04/20 [facility] Outpatient Encounter [id number] XI REGALADOVarun Ruelas 04/23 [facility] Outpatient Encounter [id number] SAM STRICKLAND 05/06 [facility] OFFICE O/P EST MOD 30 MIN [id number] Diagnos is: ICD-10- CM N17.9 Acute kidney failure , unspeci fied ESTEBANNANCY CORNEJO 05/11 [facility] Outpatient Encounter [id number] 05/25 [facility] Outpatient Encounter [id number] 05/25 [facility] Outpatient Encounter [id number] 05/26 [facility] Outpatient Encounter [id number] 05/27 [facility] OFFICE O/P EST LOW 20 MIN [id number] Diagnos is: ICD-10- CM M25.569 Pain in unspeci fied knee ANA,RASHID L L 05/27 [facility] Outpatient Encounter [id number] 05/27 [facility] Outpatient Encounter [id number] 05/31 [facility] Outpatient Encounter [id number] 05/31 [facility] Outpatient Encounter [id number] 05/31 [facility] Outpatient Encounter [id number] 05/31 [facility] Outpatient Encounter [id number] 06/01 [facility] Outpatient Encounter [id number] 06/02 [facility] Outpatient Encounter [id number] SHYANN ESCAMILLA 06/04 [facility] Outpatient Encounter [id number] 06/07 [facility] Outpatient Encounter [id number] 06/07 [facility] Outpatient Encounter [id number] 06/09 [facility] Outpatient Encounter [id number] 06/10 [facility] Outpatient Encounter [id number] 06/17 [facility] Social History Combined list of available smoking, tobacco, and other social history from Department of Defense and Veterans Affairs facilities. Social History Type Response Date Comment Source Tobacco smoking status [facility] VA-TOBACCO FORMER USER 12/10/2023 [facility] History of tobacco use VA-TOBACCO QUIT 15 YRS OR MORE 12/10/2023 [facility] History of tobacco use VA-TOBACCO FORMER USER 08/13/2022 [facility] History of tobacco use VA-TOBACCO FORMER USER 04/03/2021 [facility] History of tobacco use VA-TOBACCO FORMER USER 01/18/2020 [facility] History of tobacco use VA-TOBACCO FORMER USER 11/27/2018 [facility] History of tobacco use VA-TOBACCO QUIT 5 TO < 15 YRS 01/23/2018 [facility] History of tobacco use TOBACCO CESSATION MEDS REFUSED 05/01/2017 STOP 10YEARS AGO [facility] History of tobacco use TOBACCO CESSATION MEDS REFUSED 03/18/2016 STOPPED 8YRS AGO [facility] History of tobacco use LIFETIME NON-USER OF TOBACCO 12/16/2013 [facility] Plan of Care List of future care activities from [facility] facilities. Additional future care activities may be listed in the Assessment and Plan section. Date/Time Care Activity Care Activity Detail Facili ty 06/29/2024 AMBULATORY - NONE [facility] - NONE [facility] 06/29/2024 AMBULATORY - NONE AMBULATORY - NONE [facility] 10/05/2024 AMBULATORY - NONE AMBULATORY - NONE [facility] 10/19/2024 AMBULATORY - NONE AMBULATORY - NONE [facility] 05/25/2024 Consult Order [facility] RTHO GENERAL Cons Copy Reader's Choice [facility] 06/01/2024 Consult Order [facility]-C ARDIOLOGY Cons Copy Reader[facility] Advance Directives List of completed, amended, or rescinded Advance Directives on record at [facility] facilities. An actual copy of the Directive is not included. Date Advance Directive Provider Source 12/31/2023 ADVANCE DIRECTIVE DISCUSSION [facility]
--- OUTSIDE RECORDS SUMMARY | 2024-06-22 19:03 | XMS_ITS | Encounter Summary ---
Author Organization [facility] Address [address] [place] [address] Phone Care Team Providers Care Renewal Specialist Name Role Phone Administration, Tiffany ALLEN Primary Care Provide r Unavailable Encounter Details Date Type Department Care Team (Late st Contact Info) Description 06/22/2024 Telephone [facility] Cardiology [address] [facility] 8th [place] [address] [place] [phone] Danielle Meek Social History Tobacco Use Types Packs/Day Years Used Date Smoking Tobacco: Former Cigarettes Passive Smoke Exposure: Never Smokeless Tobacco: Never AUDIT-C Answer Date Recorded Q1: How often [...] on file 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 N SUPPLY LOAD BUILDER * Telephone Encounter - Maneula Marrero RN - 06/22/2024 3:41 PM CST I have initiated a MyChart message to the pt at this time. N SUPPLY LOAD BUILDER * Telephone Encounter - Manuela Marrero RN - 06/22/2024 3:37 PM CST I have called again and it went to his voicemail. I did not leave another message N SUPPLY LOAD BUILDER * Telephone Encounter - Kenzie Zamudio - 06/22/2024 3:19 PM CST Pt returning nurse's call. Pls call. N SUPPLY LOAD BUILDER * Telephone Encounter - Manuela Marrero RN - 06/22/2024 3:01 PM CST I tried to call back and got the voicemail again, I did not leave another f/u message for the pt. N SUPPLY LOAD BUILDER * Telephone Encounter - Manuela Marrero RN - 06/22/2024 2:42 PM CST I called to f/u with pt and got his very long voicemail. I LMOR that I was returning his call regarding scheduling ablation with Dr. Capone. The first available time I have is for September 17, 2024 as thesecond case. I asked that he return my call and I will also f/u N SUPPLY LOAD BUILDER * Telephone Encounter - Danielle Meek - 06/22/2024 10:18 AM CST [facility] PT CALLING IN REGARDS TO SCHEDULING ABLATION N SUPPLY LOAD BUILDER documented in this encounter Plan of Treatment Not on file documented as of this encounter Visit Diagnoses Not on filedocumented in this encounter Care Teams Renewal Specialist Relationship Specialty Start Date End Date Tiffany Ugarte MD PCP - General Tower Climber 06/01/24 documented as of this encounter
--- OUTSIDE RECORDS SUMMARY | 2024-06-22 19:03 | XMS_ITS | Clinical Summary ---
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 Gender Identity Not on file Sexual Orientation Not on file Last Filed Vital Signs Vital Sign Reading Time Taken Comments Blood Pressure 130/70 09/11/2021 11:00 AM CDT Pulse 90 09/11/2021 11:00 AM CDT Temperature 36.8 C (98.2 F) 09/11/2021 11:00 AM CDT Respiratory Rate 16 08/22/2021 1:28 PM CDT [...] of 2) 05/29/2021 04/03/2021 Influenza Immunization (#1) 12/28/2023/10/2020, 01/26/2020, 01/26/2019, Additional history exists SARS-COV-2 Immunization [...] this topic Medical Devices Implanted Type Area Supervisor Concrete Stone Finishing Device Identifier Shelf Expiration Date Model / Serial / Lot Quattro Link Knotless Wilmer, 4.5mm Peek Wilmer Implanted:Qty: 1 on 08/22/2021 by Wilman Tapia MD at [facility] Left: Shoulder [employer] 01/29/2026 [id number] / / [id number] Insurance [facility] Care Teams Timber Hand Relationship Specialty Start Date End Date Chris Hamlin APRN, JENI [address] [place] [id number] PCP - General Advanced Practice Nurse 07/23/21
--- OUTSIDE RECORDS SUMMARY | 2024-06-22 19:03 | XMS_ITS | Clinical Summary ---
Author Organization [facility] Address [address] [place] [address] Care Team Providers Care Assistant Associate Professor Name Role Phone Administration, Veterans Primary Care Provide r Unavailable Allergies Active Allergy Reactions Criticality Noted Date Comments Atorvastatin Muscle pain Medium 06/14/2015 Yhvdfbi-Gqd-Lfq Reductase Inhibitors Muscle pain,Unknown Medium 05/24/2019 Info [...] mouth 2 (two) times a day Active pantoprazole DR (PROTONIX) 40 mg EC [...] Active Additional Information Patient not taking.Reported on 06/22/2024 senna-docusate (PERICOLACE) 8.6-50 mg Take 1-2 tablets daily prn for constipation 30 tablet 12/24/19 24 Active ondansetron ODT (ZOFRAN-ODT) 4 mg disintegrating tablet Take 1 tablet (4 mg total) by mouth every 6 (six) hours as needed for nausea or vomiting 10 tablet 12/24/19 24 Active rosuvastatin (CRESTOR) 20 mg tabletIndications: Coronary artery disease involving [place] coronary artery of [place] heart without angina pectoris Take 1 tablet (20 mg total) by mouth daily 90 tablet 3 03/18/20 24 Active folic acid (FOLVITE) 1 mg tablet Take 1 tablet (1,000 mcg total) by mouth daily 04/21/20 24 Active calcitRIOL (ROCALTROL) 0.25 mcg capsule Take 1 capsule (0.25 mcg total) by mouth daily 04/21/20 Active multivitamin-waste examiner als-lutein (Multivitamin 50 Plus) tablet Take by mouth 04/21/20 Active Active Problems Problem Noted Date Diagnosed Date Coronary artery disease invo lving [place] coronary artery of [place] heart without angina pectoris 06/22/2024 NSTEMI (non-ST elevated myocardial infarction) ( CMS/HCC) 11/24/2023 ARIADNA (acute kidney injury) 11/24/2023 Acute [...] Encounters Date Type Department Care Team Description 06/22/2024 11:00 AM CONTENT DIRECTOR Office Visit [facility] Cardiology [address] [place] [address] Harris Nevarez MD Supraventricular tachycardia (HCC) (Primary Dx); Paroxysmal atrial fibrillation (CMS/HCC) (HCC); Coronary artery disease involving [place] coronary artery of [place] heart without angina pectoris 06/22/2024 Telephone [facility] Cardiology [facility] [facility] 8th [place] [address] [place] [address] Danielle Meek 06/10/2024 1:00 PM CONTENT DIRECTOR Office Visit [facility] Cardiology [facility] 8th [place] [address] [place] [address] Denys Capone MD Supraventricular tachycardia (HCC); Acute coronary syndrome (CMS/HCC) (HCC) 05/31/2024 Telephone [facility] Orthopedics and Sports Medicine [address] [facility] [address] [place] [address] Altaf Naidu MD 03/24/2024 Telephone [facility] Cardiology [address] [facility] [address] 8th [place] [address] [place] [address] Danielle Meek from Last 3 Months Surgical History Surgery [...] on file Legal Sex Male 9:53 AM CONTENT DIRECTOR Gender Identity Not on file Sexual Orientation Not on file Obstetrics History Last Filed Vital Signs Vital Sign Reading Time Taken Comments Blood Pressure 154/100 06/22/2024 11:56 AM CONTENT DIRECTOR Pulse 83 06/22/2024 11:56 AM CONTENT DIRECTOR Temperature 36.3 C (97.4 F) 12/24/2023 3:00 PM CDT Respiratory Rate 18 12/24/2023 3:00 PM CDT Oxygen Saturation 95% 06/22/2024 11:56 AM CONTENT DIRECTOR Inhaled Oxygen Concentration - - Weight 121.1 kg (267 lb) 06/22/2024 11:56 AM CONTENT DIRECTOR Height 190.5 cm (6' 3 ) 06/22/2024 11:56 AM CONTENT DIRECTOR Body Mass Index 33.37 06/22/2024 11:56 AM CONTENT DIRECTOR Plan of Treatment Health Maintenance Due Date [...] 18-64 02/25/1980 Osteoporosis Screening-Bone Density Scan 02/25/2012 Pneumococcal vaccine <65 (4 of 4 - PCV20 or PCV21) 05/09/2020 05/09/2015, 06/15/2014, 11/04/2001 Covid-19 Vaccine (2 - Jansse n risk series) 08/10/2020 07/13/2020 Hepatitis B Vaccines (1 of 3 - Risk 3-dose series) 2022 Depression Screening 11/21/2024 11/22/2023, 11/22/19 24 Proteinuria screening Urinalysis (UA) 11/22/2024 11/23/2023 Lipid Panel 03/18/2025 03/18/2024 DTaP/Tdap/Td Vaccine (3 - Td or Tdap) 05/27/2034 05/27/2024, 12/16/2013, 08/26/1997 Hepatitis A Vaccines Completed 01/26/2019, 06/11/19 19 Zoster Vaccine Completed 02/18/2022, 04/03/2021 Influenza Vaccine Completed 05/27/2024, , 02/18/2022, Additional history exists Medical Devices Implanted Type Area Medical Typist Device Identifier Shelf Expiration Date Model / Serial / Lot Holli Endoscopy [place] Suture Alphavent 4.75mm With 3-Strands 1.4mm Xbraid Tt [id number] - [id number] Implanted:Qty: 1 on 12/24/2023 by Altaf Naidu MD at [facility] Right: Shoulder [facility] [id number] 10/23/2024 [id number] / / [id number] [employer] Corkscrew L4.75 Mr Tape Full Thread [place] Suture Biocomposite Sterile Disposable Latex Free [id number] - [id number] Implanted:Qty: 1 on 12/24/2023 by Altaf Naidu MD at [facility] Right: Shoulder [employer] [id number] 08/25/2026 [id number] / / [id number] Procedures Procedure Name Priority Date/Time Associated Diagnosis Comments ECG 12-LEAD Routine 06/10/2024 2:10 PM CONTENT DIRECTOR Supraventricular tachycardia (HCC) POCT LIPID PANEL Routine 03/18/2024 2:14 PM CONTENT DIRECTOR Lipid screening URINALYSIS AND REFLEX TO MICROSCOPIC AND CULTURE Routine 11/23/2023 6:08 PM CDT from Last 3 Months or Most Recently Relevant to Health Maintenance Results * ECG 12 lead (06/10/2024 2:10 PM CONTENT DIRECTOR) Denys Capone MD ECG ORDERABLES Final R esult * POCT lipid panel (03/18/2024 2:14 PM CONTENT DIRECTOR) Cholesterol, POC 248 mg/dL HDL, POC 41 mg/dL Triglycerides, POC 161 mg/dL LDL Cholesterol POC 175 mg/dL Chol/HDL Ratio, POC 4.3 Non-HDL Cholesterol, POC 207 mg/dL Cholesterol Total, POC 248 mg/dL Capillary blood 03/18/2024 2 :14 PM CONTENT DIRECTOR Kerry Joseph NP POINT OF CARE TEST ORDERA BLES Edited Result - Final * (ABNORMAL) Urinalysis reflex to microscopic and culture Urine (11/23/2023 6:08 PM CDT) Color, ur Yellow Yellow Clarity, ur Clear Clear [facility] (ALMYRA) Specific gravity, ur 1.034(H) 1.003 - 1.030 [facility] ([facility]MY[facility]) pH, urine 6.0 [facility] (LEO) Comment: Interpretive Data U rine pH is affected by diet, medications, systemic acid-base disturbances, and renal tubular function. pH may affect urinary stone formation. For example, urine pH below 6.0 may help reduce the tendency for calcium phosphate stones and pH greater than 6.0 may reduce the tendency for uric acid stone formation. Source: [facility] Current Interpretive Data was last revised on [...] for microscopic UA and culture not met. [facility] ([facility]) Urine 11/23/2023 6:08 PM CDT 11/23/2023 6:17 PM CDT us Lul Rahman MD LAB MICROBIOLOGY - GENERAL OR DERABLES Final Result [facility] (LEO) [address] [facility] Department [place] [address] from Last 3 Months or Most Recently Relevant to [place] [address] [place] [facility] Advance Directives For more information, please contact: [phone] * Full Code (Latest Code Status on File) Date Activated Date Inactivated Comments 11/23/2023 4:47 AM 11/24/2023 11:08 PM Care Teams Assistant Associate Professor Relationship Specialty Start Date End Date Tiffany Ugarte MD PCP - General Leather Scraper 06/01/24
--- OUTSIDE RECORDS SUMMARY | 2024-06-22 19:03 | XMS_ITS | Encounter Summary ---
Author Organization [facility] Address [facility] [place] [address] Care Team Providers Care Watch Commander Name Role Phone Azucena, Concepcion Martin NP Unavailable Unavailable Kevin Ontiveros MD Primary Care Provider [phone] Kevin Ontievros MD Unavailable [phone] Gregory Hamlin Unavailable [phone] Chris Hamlin NP Primary Care Provider [phone] Arcadio Gilmore DO Unavailable [phone] Enzo Gutierrez MD Unavailable Encounter Details Date Type Department Care Team (Late st Contact Info) Description 07/09/2019 [facility] [address] [place] [address] Pool Ragland MD Social History Tobacco Use Types Packs/Day Years Used Date Smoking Tobacco: Former Cigarettes 1 30 0 09/30/1981 - 10/01/2011 Smokeless Tobacco: Former Chew Quit: 2016 Alcohol Use Standard Drinks/Week Comments Yes 0 (1 standard drink = 0.6 oz pur e alcohol) rarely Sex and Gender Information Value Date Recorded Sex Assigned at Not on file Legal Sex Male 11:09 PM TEMPERATURE REGULATOR PYROMETER Gender Identity Male 05/30/2021 2:32 PM TEMPERATURE REGULATOR PYROMETER Sexual Orientation Not on file documented as [...] Visit Diagnoses Diagnosis SVT (supraventricular tachycardia) (CMS/HCC [facility]) Other specified cardiac dysrhythmias documented in this encounter Additional Health Concerns Infection Onset Date Last Indicated Resolved Time COVID-19 Rule Out 10/29/2019 10/29/2019 10/31/2019 11:25 AM CDT COVID-19 Rule Out 11/16/2019 11/16/2019 11/17/2019 6:05 PM CDT COVID-19 Rule Out 07/31/2021 07/31/2021 07/31/2021 9:01 PM CDT documented as of this encounter Care Teams Watch Commander Relationship Specialty Start Date End Date Kevin Ontiveros MD [address] [place] [address] PCP - General FAMILY PRACTICE 12/25/17 04/07/22 Kevin Ontiveros MD [address] [place] [address] PCP - [place] PROVIDER FAMILY PRACTICE 12/25/17 04/07/22 Chris Hamlin NP [address], [place] [address] PCP - General NURSE PRACTITIONER 04/08/22 Concepcion Zeng NP Referring Physician CARDIOVASCULAR DISEASE 10/09/17 Gregory Hamlin PA [address] [place] [address] PHYSICIAN ACCREDITATION SPECIALIST 01/17/22 Arcadio Gilmore DO [address] [place] [address] Consulting Physician CARDIOVASCULAR DISEASE 05/30/22 Enzo Gutierrez MD [facility] [address] [place] [address] Consulting Physician INTERVENTIONAL CARDIOLOGY 11/21/22 documented as of this encounter
--- OUTSIDE RECORDS SUMMARY | 2024-06-22 19:03 | XMS_ITS | Encounter Summary ---
Author Organization [facility] Address [facility] [place] [address] Care Team Providers Care Ammonium Sulfate Operator Name Role Phone Azucena, Concepcion Martin NP Unavailable Unavailable Kevin Ontiveros MD Primary Care Provider [phone] Kevin Ontiveros MD Unavailable [phone] Gregory Hamlin Unavailable [phone] Chris Hamlin NP Primary Care Provider Arcadio Gilmore DO Unavailable [phone] Enzo Gutierrez MD Unavailable Encounter Details Date Type Department Care Team (Late st Contact Info) Description 05/04/2019 Abstract [facility] [address] [place] [address] Pool Ragland MD Social History Tobacco Use Types Packs/Day Years Used Date Smoking Tobacco: Former Cigarettes 1 30 0 09/30/1981 - 10/01/2011 Smokeless Tobacco: Former Chew Quit: 2016 Alcohol Use Standard Drinks/Week Comments Yes 0 (1 standard drink = 0.6 oz pur e alcohol) rarely Sex and Gender Information Value Date Recorded Sex Assigned at Not on file Legal Sex Male 11:09 PM SEQUENCING MACHINE OPERATOR Gender Identity Male 05/30/2021 2:32 PM SEQUENCING MACHINE OPERATOR Sexual Orientation Not on file documented as of this encounter Plan of Treatment Not on file documented as of this encounter Procedures Procedure Name Priority Date/Time Associated Diagnosis Comments CMP (OUTSIDE LAB) Routine 05/03/2019 5:1 5 PM SEQUENCING MACHINE OPERATOR CBC W/DIFF AUTOMATED Routine 05/03/2019 5:15 PM SEQUENCING MACHINE OPERATOR MAGNESIUM (OUTSIDE LAB) Routine 03/06/2019 3:20 PM SEQUENCING MACHINE OPERATOR THYROID PANEL Routine 03/06/2019 documented in this encounter Results * (ABNORMAL) CMP (OUTSIDE LAB) (05/03/2019 5:15 PM SEQUENCING MACHINE OPERATOR) SODIUM S/P/B 140 136 - 145 POTASSIUM [...] 23 0 - 100 05/03/2019 5:15 PM SEQUENCING MACHINE OPERATOR us [facility] Abstract LAB-OUTSIDE/ABSTRACTED Final Result * (ABNORMAL) CBC W/DIFF AUTOMATED (05/03/2019 5:15 PM SEQUENCING MACHINE OPERATOR) WBC 5.2 4.0 - 10.8 RBC 4.64 [...] 0.1 0.0 - 0.5 05/03/2019 5:15 PM SEQUENCING MACHINE OPERATOR us Doc [facility] Abstract LABORATORY Final Result * MAGNESIUM (OUTSIDE LAB) (03/06/2019 3:20 PM SEQUENCING MACHINE OPERATOR) MAGNESIUM 1.9 03/06/2019 3:20 PM SEQUENCING MACHINE OPERATOR us Doc [facility] Abstract LAB-OUTSIDE/ABSTRACTED Final Result [...] documented as of this encounter Care Teams Ammonium Sulfate Operator Relationship Specialty Start Date End Date Kevin Ontiveros MD [address] [place] [address] PCP - General FAMILY PRACTICE 12/25/17 04/07/22 Kevin Ontiveros MD [address] [place] [address] PCP - [place] PROVIDER FAMILY PRACTICE 12/25/17 04/07/22 Chris Hamlin NP [address] [place] [address] PCP - General NURSE PRACTITIONER 04/08/22 Concepcion Zeng PULPING MACHINE OPERATOR Referring Physician CARDIOVASCULAR DISEASE 10/09/17 Gregory Hamlin PA [address] [place] [address] PHYSICIAN MANAGER SOFTWARE DEVELOPMENT 01/17/22 Arcadio Gilmore DO [address] [place], [place] [address], [place] [address] Consulting Physician CARDIOVASCULAR DISEASE 05/30/22 Enzo Gutierrez MD [facility] [address] [place] [address] Consulting Physician INTERVENTIONAL CARDIOLOGY 11/21/22 documented as of this encounter
--- OUTSIDE RECORDS SUMMARY | 2024-06-22 19:03 | XMS_ITS | Referral Summary ---
Author Organization [facility] Medical Office Building [address] Address [address] [place] [address] Care Team Providers Care Redipper Name Role Phone Administration, Tiffany ALLEN Primary Care Provide r Unavailable Encounters Date Type Department Care Team Description 06/22/2024 Telephone [facility] Cardiology [facility] 8th [place] [address] [place] [address] Danielle Meek 06/22/2024 11:00 AM REGISTERED NURSE FETAL Office Visit [facility] Cardiology [address] [place] [address] Harris Nevarez MD Supraventricular tachycardia (HCC) (Primary Dx); Paroxysmal atrial fibrillation (CMS/HCC) (HCC); Coronary artery disease involving [place] coronary artery of [place] heart without angina pectoris 06/10/2024 1:00 PM REGISTERED NURSE FETAL Office Visit [facility] Cardiology [facility] 8th [place] [address] [place] [address] Denys Capone MD Supraventricular tachycardia (HCC); Acute coronary syndrome (CMS/HCC) (HCC) 05/31/[address] [facility] Orthopedics and Sports Medicine [address] [facility] [address] [place] [address] Altaf Naidu MD 03/24/2024 Telephone [facility] Cardiology [facility] 8th [place] [address] [place] [address] Danielle Meek from Last 3 Months Allergies Active Allergy Reactions Criticality Noted Date Comments Atorvastatin Muscle pain Medium 06/14/2015 Gkzurqx-Gfj-Epi Reductase Inhibitors Muscle pain,Unknown Medium 05/24/2019 Info [...] 20 mg tabletIndications: Coronary artery disease involving [place] coronary artery of [place] heart without angina pectoris Take 1 tablet (20 mg total) by mouth daily 90 tablet 3 03/18/20 24 Active folic acid (FOLVITE) 1 mg tablet Take 1 tablet (1,000 mcg total) by mouth daily 04/21/20 24 Active calcitRIOL (ROCALTROL) 0.25 mcg capsule Take 1 capsule (0.25 mcg total) by mouth daily 04/21/20 24 Active multivitamin-driver examiner als-lutein (Multivitamin 50 Plus) tablet Take by mouth 04/21/20 24 Active Active Problems Problem Noted Date Diagnosed Date Coronary artery disease invo lving [place] coronary artery of [place] heart without angina pectoris 06/22/2024 NSTEMI (non-ST elevated myocardial infarction) ( [facility]/HCC) 11/24/2023 ARIADNA (acute kidney injury) 11/24/2023 Acute chest pain 11/23/2023 Acute coronary syndrome ([facility]/HCC) 11/23/2023 Supraventricular tachycardia 11/23/2023 Atrial fibrillation ([facility]/HCC) 11/23/2023 Primary hypertension 11/23/2023 Hyperlipidemia 11/23/2023 HIV [...] on file Legal Sex Male 9:53 AM REGISTERED NURSE FETAL Gender Identity Not on file Sexual Orientation Not on file Last Filed Vital Signs Vital Sign Reading Time Taken Comments Blood Pressure 154/100 06/22/2024 11:56 AM REGISTERED NURSE FETAL Pulse 83 06/22/2024 11:56 AM REGISTERED NURSE FETAL Temperature 36.3 C (97.4 F) 12/24/2023 3:00 PM CDT Respiratory Rate 18 12/24/2023 3:00 PM CDT Oxygen Saturation 95% 06/22/2024 11:56 AM REGISTERED NURSE FETAL Inhaled Oxygen Concentration - - Weight 121.1 kg (267 lb) 06/22/2024 11:56 AM REGISTERED NURSE FETAL Height 190.5 cm (6' 3 ) 06/22/2024 11:56 AM REGISTERED NURSE FETAL Body Mass Index 33.37 06/22/2024 11:56 AM REGISTERED NURSE FETAL Plan of Treatment Not on file Medical Devices Implanted Type Area Petroleum Plant Operator Device Identifier Shelf Expiration Date Model / Serial / Lot [facility] [place] Suture Alphavent 4.75mm With 3-Strands 1.4mm Xbraid Tt [id number] - [id number] Implanted:Qty: 1 on 12/24/2023 by Altaf Naidu MD at [facility] Right: Shoulder [facility] [id number] 10/23/2024 [id number] / / [id number] [employer] Corkscrew L4.75 Mr Tape Full Thread [place] Suture Biocomposite Sterile Disposable Latex Free [id number] - [id number] Implanted:Qty: 1 on 12/24/2023 by Altaf Naidu MD at [facility] Right: Shoulder [employer] [id number] 08/25/2026 [id number] / / [id number] Procedures Procedure Name Priority Date/Time Associated Diagnosis Comments ECG 12-LEAD Routine 06/10/2024 2:10 PM REGISTERED NURSE FETAL Supraventricular tachycardia (HCC) POCT LIPID PANEL Routine 03/18/2024 2:14 PM REGISTERED NURSE FETAL Lipid screening URINALYSIS AND REFLEX TO MICROSCOPIC AND CULTURE Routine 11/23/2023 6:08 PM CDT from Last 3 Months or Most Recently Relevant to Health Maintenance Results * ECG 12 lead (06/10/2024 2:10 PM REGISTERED NURSE FETAL) Denys Capone MD ECG ORDERABLES Final R esult * POCT lipid panel (03/18/2024 2:14 PM REGISTERED NURSE FETAL) Cholesterol, POC 248 mg/dL HDL, POC 41 mg/dL Triglycerides, POC 161 mg/dL LDL Cholesterol POC 175 mg/dL Chol/HDL Ratio, POC 4.3 Non-HDL Cholesterol, POC 207 mg/dL Cholesterol Total, POC 248 mg/dL Capillary blood 03/18/2024 2 :14 PM REGISTERED NURSE FETAL Kerry Joseph NP POINT OF CARE TEST [...] tendency for uric acid stone formation. Source: [facility] Current Interpretive Data was last revised on [...] MICROBIOLOGY - GENERAL OR DERABLES Final Result [facility] [address] [facility] [place] [address] from Last 3 Months or Most Recently Relevant to Health Maintenance Insurance [facility] Advance Directives For more information, please contact: [phone] * Full Code (Latest Code Status on File) Date Activated Date Inactivated Comments 11/23/2023 4:47 AM 11/24/2023 11:08 PM Care Teams Redipper Relationship Specialty Start Date End Date Tiffany Ugarte MD PCP - General Glove Cuffer 06/01/24
--- OUTSIDE RECORDS SUMMARY | 2024-06-22 19:03 | XMS_ITS | Encounter Summary ---
Author Organization [facility] Healthcare Address [address] [place] [address] Care Team Providers Care Leader Writer Name Role Phone Administration, Tiffany ALLEN Primary Care Provide r Unavailable Reason for Visit * Reason Comments Follow-up 3 M follow up Encounter Details Date Type Department Care Team (Latest Contact Info) Description 06/22/2024 11:00 AM TENNIS BALL COVERER HAND Office Visit [facility] Cardiology [address] [address] Harris Nevarez MD [address] [facility] [address] [place], [place] [id number] Supraventricular tachycardia (HCC) (Primary Dx); Paroxysmal atrial fibrillation (CMS/HCC) (HCC); Coronary artery disease involving [place] coronary artery of [place] heart without angina pectoris Social History Tobacco Use Types Packs/Day Years [...] on file Legal Sex Male 9:53 AM TENNIS BALL COVERER HAND Gender Identity Not on file Sexual Orientation Not on file documented as of this encounter Last Filed Vital Signs Vital Sign Reading Time Taken Comments Blood Pressure 154/100 06/22/2024 11:56 AM TENNIS BALL COVERER HAND Pulse 83 06/22/2024 11:56 AM TENNIS BALL COVERER HAND Temperature - - Respiratory Rate - - Oxygen Saturation 95% 06/22/2024 11:56 AM TENNIS BALL COVERER HAND Inhaled Oxygen Concentration - - Weight 121.1 kg (267 lb) 06/22/2024 11:56 AM TENNIS BALL COVERER HAND Height 190.5 cm (6' 3 ) 06/22/2024 11:56 AM TENNIS BALL COVERER HAND Body Mass Index 33.37 06/22/2024 11:56 AM TENNIS BALL COVERER HAND documented in this encounter Progress Notes * Harris Nevarez MD - 06/22/2024 11:00 AM CST [facility] CARDIOLOGY CHIEF COMPLAINT / REASON FOR CONSULT: Syncope HISTORY: Markell Rodriguez is a 64 y.o. male with paroxysmal atrial fibrillation, paroxysmal SVT, and nonobstructive CAD returns to clinic for follow up of his cardiac care. He has had multiple episodes of syncope related to heart rates and EMS evidence of NSVT. Typically these episodes would be situation. He would start to feel the palpitations followed by upper sternum discomfort and he would start to feel lightheaded and would faint. The loss of consciousness is brief and he would feel drowsy upon regaining consciousness. He previously had ablation therapies with improvement in symptoms and has already seen blindstitch hemmer for ablation Exercise Tolerance: Social: Family History: Medications: Aspirin 81 mg p.o. daily Eliquis 5 mg p.o. b.i.d. Diltiazem 360 mg p.o. daily Toprol 50 mg p.o. daily Lisinopril 10 mg p.o. daily REVIEW OF SYSTEMS: GENERAL: As per HPI CVS: As per HPI HEME: No bruising, no bleeding PHYSICAL EXAMINATION: BP 154/100 (BP Location: Left arm, Patient Position: Sitting) Pulse 83 Ht 190.5 cm (6' 3 ) Wt121.1 kg (267 lb) SpO2 95% BMI 33.37 kg/m?? GENERAL: Alert, in no distress HEAD: Normocephalic and atraumatic EYES: Extraocular movement intact ENT: Unremarkable NECK: no jugular venous distention CHEST: Clear to auscultation, no wheezes, rales or rhonchi, symmetric air entry CARDIAC: Regular rate and rhythm, S1 S2 normal, no murmur, rub, heaves, thrills or gallops ABDOMEN: soft, nontender, no bruit EXTREMITIES: No edema PERIPHERAL PULSES: Peripheral pulses symmetrical SKIN: Warm and dry NEURO: Alert and oriented x 3 LABS: No results found for: CHOL No results found for: HDL No results found for: LDLCALC No results found for: TRIG No results found for: CHOLHDL No results found for: HGBA1C EK06/10/2024: sinus rhythm with LAFB CARDIAC IMAGING RESULTS REVIEW: Echo 10/2023: normal BiV size and systolic function. No significant valvular disease. Mild LAE Cardiac CT Stress Test Cardiac Monitors Cath 10/2023: LCx 50%. Ostial rPDA 60%. iFR of Lcx 1.0 ASSESSMENT/PLAN: 64 y.o. male with paroxysmal atrial fibrillation, paroxysmal SVT, and nonobstructive CAD returns to clinic for follow up of his cardiac care Nonobstructive CAD - no anginal symptoms - continue metoprolol succinate 50mg PO daily - unable to tolerate statins due to physically limiting myalgias - interested in inclisiran for which we will attempt to authorize for him pSVT - continue diltiazem 360mg PO daily pAF - continue eliquis 5mg PO BID HLD - will work on approiving inclisiran for him as he is intolerable to statins due to physically limiting myalgias RTC in 1 year Harris Nevarez MD IS BALL COVERER HAND documented in this encounter Plan of Treatment Not on file documented as of this encounter Visit Diagnoses Diagnosis Supraventricular tachycardia (HCC)- Primary Other specified cardiac dysrhythmias Paroxysmal atrial fibrillation (CMS/HCC) (HCC) Atrial fibrillation Coronary artery disease involving [place] coronary artery of [place] heart without angina pectoris documented in this encounter Historical Medications * This list may reflect changes made after this encounter. multivitamin-financial examiner als-lutein (Multivitamin 50 Plus) tablet Take by mouth 04/21/2024 added in this encounter Care Teams Leader Writer Relationship Specialty Start Date End Date Administration, MD Tiffany PCP - General Laundry Sorter 06/01/24 documented as of this encounter
--- OUTSIDE RECORDS SUMMARY | 2024-06-22 19:03 | XMS_ITS | Encounter Summary ---
Author Organization [facility] Address Critical access hospital[address] [place] [address] Care Team Providers Care Senior Principal Process Engineer Name Role Phone New Referring, Provider Primary Care Provider Un available Concepcion Zeng NP Unavailable Unavailable Kevin Ontiveros MD Primary Care Provider [phone] Kevin Ontiveros MD Unavailable [phone] Gregory Hamlin Unavailable [phone] Chris Hamlin NP Primary Care Provider Arcadio Gilmore DO Unavailable [phone] Enzo Gutierrez MD Unavailable Encounter Details Date Type Department Care Team (Late st Contact Info) Description 07/12/2017 Abstract [facility] CONVERSION [address] [place] [address] , Generic Conversion, Social History Tobacco Use Types Packs/Day Years Used Date Smoking Tobacco: Never Assessed Sex and Gender Information Value Date Recorded Sex Assigned at Not on file 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 Gender Identity Male 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/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 Sexual Orientation Not on file documented as [...] documented as of this encounter Care Teams Senior Principal Process Engineer Relationship Specialty Start Date End Date New Referring, Provider PCP - General UNKNOWN PHYSICIAN SPECIALTY 10/09/17 12/18/17 Kevin Ontiveros MD [address] [place] [address] PCP - General FAMILY PRACTICE 12/25/17 04/07/22 Kevin Ontiveros MD [address] [place] [address] PCP - [place] PROVIDER FAMILY PRACTICE 12/25/17 04/07/22 Chris Hamlin NP [address] [place], [place] [address], [place] [address] PCP - General NURSE PRACTITIONER 04/08/22 Concepcion Zeng NP Referring Physician CARDIOVASCULAR DISEASE 10/09/17 Gregory Hamlin PA [address] [place] [address] PHYSICIAN CUPOLA PATCHER HELPER 01/17/22 Arcadio Gilmore DO [address] [place], [place] [address], [place], [place] [address] Consulting Physician CARDIOVASCULAR DISEASE 05/30/22 Enzo Gutierrez MD [address] [facility] [place] [address] Consulting Physician INTERVENTIONAL CARDIOLOGY 11/21/22 documented as of this encounter
--- OUTSIDE RECORDS SUMMARY | 2024-06-22 19:11 | XMS_ITS | Continuity of Care Document ---
Author Name [facility] Organization [facility] Care Team Providers Care Chief Specialist Leed Name Role Phone [facility] Unavailable Unavailable Problems Combined list of problems from Department of Defense and Veterans Affairs facilities. It does not include entries that were removed or entered in error. Problem Status Onset Date Problem Type Date of Resolution Comments Source Arthralgia of the ankle and/or foot Active Condition [facility] Atrial fibrillation Active Condition Dec 31, 2017 Entered By: DEBI CUENCA Comment: S/P ablation 12/25/2017Jun 2018 Entered By: SRINI MAGALLANES Comment: followed by [place] [facility] Benign essential hypertension Active Condition [facility] Cervicalgia Active Condition [facility] Chronic cough Active Condition [facility] Chronic kidney disease stage 3 Active Condition Oct 15, 2018 Entered By: SRINI MAGALLANES Comment: avoids NSAIDS [facility] Chronic Low Back Pain (SCT 360486) Active Condition [facility] Diverticulitis Active Condition Jun Entered By: SRINI MAGALLANES Comment: 06/25/18 colonoscopy, bx pendingMay 2018 Entered By: JAVON SEYMOUR Comment: 09/08/18 Flex sig, biopsy--benig n tissue, repeat 2 yr [facility] Dysphagia Active Condition [facility] Family social history Active Condition Oct 15, 2018 Entered By: SRINI MAGALLANES Comment: father had NV, smoker, in 50'sJun 2018 Entered By: SRINI MAGALLANES Comment: brother with CVA at age 60Jun 2018 Entered By: SRINI MAGALLANES Comment: 1/2 brother with NV [facility] Gastroesophageal reflux disease Active Condition [facility] H/O: surgery Active Condition Oct 15, 2018 Entered By: SRINI MAGALLANES Comment: left hip fracture 1982, fall, in traction for monthJun 2018 Entered By: SRINI MAGALLANES Comment: miriam in left upper femur, 2012 following fractureOct 15, 2018 Entered By: SRINI MAGALLANES Comment: lumbar fusion, 1999Oct 15, 2018 Entered By: SRINI MAGALLANES Comment: ablation 01/13 for atrial fib [facility] HIV - Human Immunodeficiency Virus Infection (SCT 25201083) Active Condition [facility] Hyperlipidemia Active Condition [facility] Long-term current use of anticoagulant [facility] Obesity Active Condition [facility] Obstructive sleep apnea syndrome Active Condition Apr 29, 2016 Entered By: RUTH WHITEHEAD Comment: split night 04/23/16: AHI 11.8/hr, 82% low sat; 5-14cwp [facility] Osteoarthritis of knee Active Condition [facility] Osteoporosis Active Condition Oct 15, 2018 [...] MAGALLANES Comment: normal Vit D on replacement [facility] Pain of joint of knee Active Condition [facility] Panic attack Active Condition [facility] Primary subtalar osteoarthritis Active Condition [facility] Sensorineural hearing loss, bilateral [facility] Shoulder pain Active Condition [facility] Social history baseline finding Active Condition Oct 15 9 Entered By: SRINI MAGALLANES Comment: marriedOct 15, 2018 Entered By: SRINI MAGALLANES 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, 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 Entered By: SRINI MAGALLANES Comment: [employer] 80-83, no combatJun 2018 Entered By: SRINI MAGALLANES Comment: quit smoking 2018 Entered By: SRINI MAGALLANES Comment: minimal etoh [facility] Spinal Stenosis of Lumbar Region (SCT 13151001) Active Condition [facility] TEST RESULTS Active Condition Oct 14, 2018 Entered By: SRINI MAGALLANES Comment: 09/13 colonoscopy normal, repeat 2 years per GI noteJun 2018 Entered By: SRINI MAGALLANES Comment: 10/05/18 bone density, right hip normal, will continue to follow [facility] Thrombocytopenia (SCT 882396005) Active Condition [facility] Tinnitus Active Condition [facility] Vitamin D deficiency Active Condition [facility] Ankle pain Inactive Condition 05/01/2017 [facility] Elevated blood pressure Inactive Condition 05/01/2017 [facility] Hearing loss Inactive Condition 05/01/2017 [facility] Palpitations Inactive Condition 05/01/2017 [facility] Syncope Inactive Condition 05/01/2017 [facility] Diagnosis: ICD-10-CM M25.569 Pain in unspecified knee Active Diagnosis [facility] Diagnosis: ICD-10-CM N17.9 Acute kidney failure, unspecified Active Diagnosis [facility] Diagnosis: ICD-10-CM B20 Human immunodeficiency virus [HIV] disease [facility] Diagnosis: ICD-10-CM I48.0 Paroxysmal atrial fibrillation Active Diagnosis [facility] Diagnosis: ICD-10-CM M75.101 Unsp rotatr-cuff tear/ruptr of right shoulder, not trauma Active Diagnosis [facility] Diagnosis: ICD-10-CM Z01.810 Encounter for preprocedural cardiovascular examination Active Diagnosis [facility] Diagnosis: ICD-10-CM F32.5 Major depressive disorder, single episode, in full remission Active Diagnosis [facility] Diagnosis: ICD-10-CM F33.41 Major depressive disorder, recurrent, in partial remission Active Diagnosis [facility] Diagnosis: ICD-10-CM Z79.01 penitentiary (current) use of anticoagulants Active Diagnosis [facility] Medications Combined list of outpatient medications from Department of Defense and [facility] Affairs facilities.Medications provided include 1) outpatient medications from the last 15 months, and 2) patient-reported medications. Medication Details Route Status Patient Instructions Prescription Expires Prescription Number Last Dispense Date Ordering Provider Order Date Order Qty Source ACETAMINOPH EN 500MG TAB TAKE TWO TABLETS BY MOUTH THREE TIMES A DAY NEEDED ORAL ACTIVE HIEN CUENCA 2017 [facility] APIXABAN 5MG TAB TAKE ONE TABLET BY MOUTH TWICE A DAY ORAL ACTIVE 03/13/2025 [id number] OFELIA CHEUNG 2023 180 [facility] APIXABAN 5MG TAB TAKE ONE TABLET BY MOUTH TWICE A DAY ORAL DISCONT INUED 04/20/2024 [id number] DRAKE DIAS 2022 180 [facility] ASPIRIN 81MG TAB,EC TAKE ONE TABLET BY MOUTH EVERY DAY ORAL ACTIVE 04/22/2025 [id number] 4 OFELIA CHEUNG NDERichadr 2023 120 [facility] ASPIRIN 81MG TAB,EC TAKE ONE TABLET BY MOUTH EVERY DAY ORAL ACTIVE HIEN CUENCA 2017 [facility] ATORVASTATI N CA 80MG TAB TAKE ONE TABLET BY MOUTH AT BEDTIME CALL YOUR PROVIDER IF YOU HAVE MUSCLE PAIN, TENDERNE SS OR WEAKNESS ORAL ACTIVE 04/22/2025 [id number] 4 OFELIA CHEUNG NDERichard 2023 90 [facility] BICTEGRAVIR 50MG/EMTRIC ITABINE 200MG/TENOF OVIR AF 25MG TAB TAKE 1 TABLET BY MOUTH EVERY DAY FOR INFECTIO N DO NOT MIX WITH MINERALS /MVI FOR ADEQUATE ABSORPTI ON. FOR INFECTIO N DO NOT MIX WITH MINERALS /MVI FOR ADEQUATE ABSORPTI ON. ORAL ACTIVE 02/25/2025 [id number] JULISAINWHA 2023 90 [facility] BICTEGRAVIR 50MG/EMTRIC ITABINE 200MG/TENOF OVIR AF 25MG TAB TAKE 1 TABLET BY MOUTH EVERY DAY FOR INFECTIO N DO NOT MIX WITH MINERALS /MVI FOR ADEQUATE ABSORPTI ON. FOR INFECTIO N DO NOT MIX WITH MINERALS /MVI FOR ADEQUATE ABSORPTI ON. ORAL DISCONT INUED 08/08/2024 [id number] 4 JULISAINLOUISA 2023 90 [facility] BICTEGRAVIR 50MG/EMTRIC ITABINE 200MG/TENOF OVIR AF 25MG TAB TAKE 1 TABLET BY MOUTH EVERY DAY FOR INFECTIO N DO NOT MIX WITH MINERALS /MVI FOR ADEQUATE ABSORPTI ON. FOR INFECTIO N DO NOT MIX WITH MINERALS /MVI FOR ADEQUATE ABSORPTI ON. ORAL DISCONT INUED 03/21/2024 [id number] JULISA,INWHA 2022 90 [facility] BUSPIRONE HCL 5MG TAB TAKE ONE TABLET BY MOUTH TWICE A DAY FOR ANXIETY ORAL ACTIVE 09/12/2024 [id number] Omar MARCOS IGISHA 2023 180 [facility] BUSPIRONE HCL 5MG TAB TAKE ONE TABLET BY MOUTH TWICE A DAY FOR ANXIETY ORAL DISCONT INUED BY PROVIDE R 06/12/2024 [id number] 4 Omar MARCOS IGISHA 2023 120 [facility] BUSPIRONE HCL 5MG TAB TAKE ONE TABLET BY MOUTH TWICE A DAY FOR ANXIETY ORAL DISCONT INUED 05/15/2024 [id number] 4 LUIS DIAS [email or web address] PUJA 2023 120 [facility] CALCITRIOL 0.25MCG CAP TAKE ONE CAPSULE BY MOUTH DAILY ORAL ACTIVE 04/22/2025 [id number] OFELIA CHEUNG NDER 2023 90 [facility] DICLOFENAC NA 1% GEL,TOP APPLY 4 GRAMS TOPICALL Y FOUR TIMES A DAY -DON'T EXCEED 16 GRAMS DAILY TO ANY AFFECTED LEG AREA. DON'T EXCEED 8 GRAMS DAILY TO ANY AFFECTED ARM AREA. DON'T EXCEED A TOTAL DOSE OF 32 GRAMS DAILY OVER ALL AREAS. *USE DOSING CARD TO MEASURE DOSE.* TOPICA L ACTIVE 05/28/2025 [id number] ANA,NICO AL L 2024 100 [facility] DILTIAZEM (EQV-TIAZAC AB4) 240MG 24HR CAP TAKE ONE CAPSULE BY MOUTH EVERY DAY FOR BLOOD PRESSURE /HEART ORAL DISCONT INUED 07/31/2023 [id number] TONY MUSE H [address] [facility] DILTIAZEM (EQV-TIAZAC AB4) 240MG 24HR CAP TAKE ONE CAPSULE BY MOUTH EVERY DAY FOR BLOOD PRESSURE /HEART ORAL 05/15/2024 [id number] LUIS DIAS JAMEY PUJA 2023 30 [facility] ERGOCALCIFE ROL 1,250MCG (50,000UNIT ) CAP TAKE ONE CAPSULE BY MOUTH ONCE WEEKLY ON FRIDAY FOR VITAMIN D- SUPPLEME NT ORAL DISCONT INUED BY PROVIDE R 12/26/2024 [id number] 4 LEONA HOBBS 2023 13 [facility] ERGOCALCIFE ROL 1,250MCG (50,000UNIT ) CAP TAKE ONE CAPSULE BY MOUTH ONCE WEEKLY ON FRIDAY FOR VITAMIN D- SUPPLEME NT ORAL DISCONT INUED 01/07/2024 [id number] 4 LEONA HOBBS 2022 13 [facility] FOLIC ACID 1MG TAB TAKE ONE TABLET BY MOUTH DAILY ORAL ACTIVE 04/22/2025 [id number] 4 OFELIA CHEUNG NDER 2023 90 [facility] METOPROLOL SUCCINATE 50MG TAB,SA TAKE ONE TABLET BY MOUTH NIGHTLY FOR BLOOD PRESSURE ORAL ACTIVE 12/18/2024 [id number] 5 LEONA HOBBS 2023 90 [facility] METOPROLOL SUCCINATE 50MG TAB,SA TAKE ONE TABLET BY MOUTH NIGHTLY FOR BLOOD PRESSURE ORAL DISCONT INUED 11/14/2023 [id number] LEONA HOBBS 2022 90 [facility] MULTIVITAMI NS W/MINERALS CAP/TAB TAKE 1 CAP/TAB BY MOUTH DAILY ORAL ACTIVE 04/22/2025 [id number] 4 OFELIA CHEUNG NDER 2023 100 [facility] PANTOPRAZOL E NA 40MG TAB,EC TAKE ONE TABLET BY MOUTH EVERY DAY ORAL ACTIVE 12/18/2024 [id number] 5 LEONA HOBBS 2023 90 [facility] PANTOPRAZOL E NA 40MG TAB,EC TAKE ONE TABLET BY MOUTH EVERY DAY ORAL DISCONT INUED 11/14/2023 [id number] 4 LEONA HOBBS 2022 90 [facility] POTASSIUM CHLORIDE 20MEQ TAB,SA (DISPERSIBL E) TAKE ONE TABLET BY MOUTH DAILY FOR POTASSIU M SUPPLEME NT ORAL 05/08/2024 [id number] LEONA HOBBS 2023 90 [facility] ROSUVASTATI N CA 20MG TAB TAKE ONE TABLET BY MOUTH EVERY DAY CALL YOUR PROVIDER IF YOU HAVE MUSCLE PAIN, TENDERNE SS OR WEAKNESS ORAL DISCONT INUED BY PROVIDE R 03/19/2025 [id number] DANELLE RACHEL 2023 90 [facility] TAMSULOSIN HCL 0.4MG CAP TAKE ONE CAPSULE BY MOUTH EVERY EVENING TAKE 30 MINUTES AFTER A MEAL ORAL ACTIVE 10/01/2024 [id number] FRANKY JOHNSON 2023 90 [facility] TAMSULOSIN HCL 0.4MG CAP TAKE ONE CAPSULE BY MOUTH EVERY EVENING TAKE 30 MINUTES AFTER A MEAL ORAL DISCONT INUED (EDIT) 05/15/2024 [id number] DRAKE DIAS 2023 30 [facility] THIAMINE 100MG TAB TAKE ONE TABLET BY MOUTH DAILY ORAL ACTIVE 04/22/2025 [id number] OFELIA CHEUNG NDERichard 2023 100 [facility] VENLAFAXINE HCL 150MG 24HR CAP,SA TAKE ONE CAPSULE BY MOUTH DAILY FOR DEPRESSI ON WITH FOOD - MOOD ORAL ACTIVE 12/26/2024 [id number] 5 Omar MARCOS 2023 90 [facility] VENLAFAXINE HCL 150MG 24HR CAP,SA TAKE ONE CAPSULE BY MOUTH DAILY FOR DEPRESSI ON WITH FOOD - MOOD ORAL DISCONT INUED 09/12/2024 [id number] 4 Omar MARCOS 2023 90 [facility] VENLAFAXINE HCL 150MG 24HR CAP,SA TAKE ONE CAPSULE BY MOUTH DAILY WITH FOOD - MOOD ORAL DISCONT INUED BY PROVIDE R 06/12/2024 [id number] Omar MARCOS 2023 60 [facility] Allergies, Adverse Reactions, Alerts Combined list of allergies from Department of Defense and Veterans Affairs facilities. It does not include entries that were removed or entered in error. Substance Category Reaction Severity Reaction type Status Date Reported Comments Source ATORVASTATIN Propensity to adverse reactions to drug (finding) Muscle pain active 6 [facility] ATORVASTATIN Propensity to adverse reactions to drug (finding) active 7 [facility] PRAVASTATIN Propensity to adverse reactions to drug (finding) Muscle pain active 8 [facility] Immunizations Combined list of available immunizations from the Department of Defense and Veterans Affairs facilities. Immunization Series Date Given Administered By Site Reaction Lot Number CVX Code Drug Operations Officer Afloat Status Comments Source INFLUENZA, SPLIT VIRUS, TRIVALENT, PF 2024 MYERS,PRISC ILLA KATELYNN LEFT DELTO ID [id number] 140 complet [facility] TDAP 2024 MYERS,PRISC ILLA KATELYNN RIGHT DELTO ID [id number] 115 complet [facility] INFLUENZA, INJECTABLE, QUADRIVALENT, PRESERVATIVE FREE 2023 PERKINSRENNY RY LEFT DELTO ID [id number] 150 complet [facility] INFLUENZA, INJECTABLE, QUADRIVALENT, PRESERVATIVE FREE 2021 150 complet ed [facility] ZOSTER RECOMBINANT 2 2021 187 complet ed [facility] INFLUENZA, INJECTABLE, QUADRIVALENT, PRESERVATIVE FREE 2020 150 complet [facility] ZOSTER RECOMBINANT 1 2020 187 complet [facility] COVID-19 (SHANNAN), VECTOR-NR, RS-AD26, PF, 0.5 ML 1 2020 212 complet ed [facility] INFLUENZA, INJECTABLE, QUADRIVALENT, PRESERVATIVE FREE 2019 150 complet ed [facility] HEP A, ADULT 2 2018 52 complet ed [facility] INFLUENZA, INJECTABLE, QUADRIVALENT, PRESERVATIVE FREE 2018 150 complet ed [facility] MENINGOCOCCAL MCV4P 2018 114 complet ed [facility] HEP A, ADULT 1 2018 52 complet ed [facility] INFLUENZA, INJECTABLE, QUADRIVALENT, PRESERVATIVE FREE 2017 150 complet ed [facility] INFLUENZA, SEASONAL, INJECTABLE, PRESERVATIVE FREE 2016 140 complet ed Right Deltoid 0.5ml IM [facility] INFLUENZA, SEASONAL, INJECTABLE, PRESERVATIVE FREE 2015 140 complet ed Right Deltoid 0.5ml IM [facility] INFLUENZA, UNSPECIFIED FORMULATION 2015 88 complet ed [facility] INFLUENZA, UNSPECIFIED FORMULATION 2015 88 complet ed Right Deltoid 0.5ml IM [facility] PNEUMOCOCCAL POLYSACCHARID E PPV23 2015 33 complet ed [facility] PNEUMOCOCCAL CONJUGATE PCV 13 2014 133 complet ed [facility] INFLUENZA, UNSPECIFIED FORMULATION 2013 88 complet ed Right Deltoid 0.5ml IM [facility] TDAP 2013 115 complet ed Right Deltoid 0.5ml IM [facility] INFLUENZA, UNSPECIFIED FORMULATION 2001 88 complet [...] Apr 23, 2024 08:34 AM Reporting Lab: [facility] [address] [facility] [address] Performing Lab: [facility] [address] [facility] [address] [facility] COMPRE[facility]EN SIVIsa PNL GLOMERULAR FILTRATION RATE/1.73 SQ M.PREDICTED [VOLUME RATE/AREA] IN SERUM, PLASMA OR BLOOD BY CREATININE- BASED FORMULA (CKD-EPI 2020) 75 mL/min /{1.73 _m2} 60 05/27 Specimen Type: PLASMA Comment: eGFR was calculated using the CKD-EPI Creatinine (2020) equation. Ordering Provider: CROW CHEUNG ER Report Released Date/Time: Apr 23, 2024 08:34 AM Reporting Lab: [facility] [address] [facility] [address] Performing Lab: [facility] [address] [facility] [address] [facility] COMPRE[facility]EN SIVE PNL GLUCOSE [MASS/VOLUM E] IN SERUM OR PLASMA 105 mg/dL 70 - 99 05/27 H Specimen Type: PLASMA Comment: eGFR was calculated using the CKD-EPI Creatinine (2020) equation. Ordering Provider: CROW CHEUNG ER Report Released Date/Time: Apr 23, 2024 08:34 AM Reporting Lab: [address] [address] Performing Lab: [address] [address] [facility] COMPRE[facility]EN SIVE PNL POTASSIUM [MOLES/VOLU ME] IN SERUM OR PLASMA 4.0 mmol/L 3.5 - 4.7 05/27 Specimen Type: PLASMA Comment: eGFR was calculated using the CKD-EPI Creatinine (2020) equation. Ordering Provider: CROW CHEUNG ER Report Released Date/Time: Apr 23, 2024 08:34 AM Reporting Lab: [address] [address] Performing Lab: [address] [address] [facility] COMPRE[facility]EN SIVE PNL SODIUM [MOLES/VOLU ME] IN SERUM OR PLASMA 139 mmol/L 136 - 145 05/27 Specimen Type: PLASMA Comment: eGFR was calculated using the CKD-EPI Creatinine (2020) equation. Ordering Provider: CROW CHEUNG ER Report Released Date/Time: Apr 23, 2024 08:34 AM Reporting Lab: [address] [address] Performing Lab: [address] [address] [facility] COMPRE[facility]EN SIVE PNL BILIRUBIN.T OTAL [MASS/VOLUM E] IN SERUM OR PLASMA 0.7 mg/dL 0.2 - 1.2 05/27 Specimen Type: PLASMA Comment: eGFR was calculated using the CKD-EPI Creatinine (2020) equation. Ordering Provider: CROW CHEUNG ER Report Released Date/Time: Apr 23, 2024 08:34 AM Reporting Lab: [address] [address] Performing Lab: [address] [address] [facility] COM[facility] SIVE PNL PROTEIN [MASS/VOLUM E] IN SERUM OR PLASMA 7.1 g/dL 5.7 - 8.2 05/27 Specimen Type: PLASMA Comment: eGFR was calculated using the CKD-EPI Creatinine (2020) equation. Ordering Provider: CROW CHEUNG ER Report Released Date/Time: Apr 23, 2024 08:34 AM Reporting Lab: [address] [address] Performing Lab: [address] [address] [facility] COM[facility] SIVE PNL ALBUMIN [MASS/VOLUM E] IN SERUM OR PLASMA 4.6 g/dL 3.4 - 5.0 05/27 Specimen Type: PLASMA Comment: eGFR was calculated using the CKD-EPI Creatinine (2020) equation. Ordering Provider: CROW CHEUNG ER Report Released Date/Time: Apr 23, 2024 08:34 AM Reporting Lab: [address] [address] Performing Lab: [address] [address] [facility] SIVE PNL ALKALINE PHOSPHATASE [ENZYMATIC ACTIVITY/VO LUME] IN SERUM OR PLASMA 150 U/L 45 - 117 05/27 H Specimen Type: PLASMA Comment: eGFR was calculated using the CKD-EPI Creatinine (2020) equation. Ordering Provider: CROW CHEUNG ER Report Released Date/Time: Apr 23, 2024 08:34 AM Reporting Lab: [address] [address] Performing Lab: [address] [address] [facility] COM[facility] SIVE PNL ALANINE AMINOTRANSF ERASE [ENZYMATIC ACTIVITY/VO LUME] IN SERUM OR PLASMA 47 U/L 10 - 65 05/27 Specimen Type: PLASMA Comment: eGFR was calculated using the CKD-EPI Creatinine (2020) equation. Ordering Provider: CROW CHEUNG ER Report Released Date/Time: Apr 23, 2024 08:34 AM Reporting Lab: [address] [address] Performing Lab: [address] [address] [facility] COM[facility] SIVE PNL ASPARTATE AMINOTRANSF ERASE [ENZYMATIC ACTIVITY/VO LUME] IN SERUM OR PLASMA 35 U/L 10 - 37 05/27 Specimen Type: PLASMA Comment: eGFR was calculated using the CKD-EPI Creatinine (2020) equation. Ordering Provider: CROW CHEUNG ER Report Released Date/Time: Apr 23, 2024 08:34 AM Reporting Lab: [address] [address] Performing Lab: [address] [address] [facility] SIVE PNL UREA NITROGEN [MASS/VOLUM E] IN SERUM OR PLASMA 17 mg/dL 7 - 21 05/27 Specimen Type: PLASMA Comment: eGFR was calculated using the CKD-EPI Creatinine (2020) equation. Ordering Provider: CROW CHEUNG ER Report Released Date/Time: Apr 23, 2024 08:34 AM Reporting Lab: [address] [address] Performing Lab: [address] [address] [facility] COM[facility] SIVE PNL CALCIUM, TOTAL 9.9 mg/dL 8.7 - 10.4 05/27 Specimen Type: PLASMA Comment: eGFR was calculated using the CKD-EPI Creatinine (2020) equation. Ordering Provider: CROW CHEUNG ER Report Released Date/Time: Apr 23, 2024 08:34 AM Reporting Lab: [address] [address] Performing Lab: [address] [address] [facility] COMPRE[facility]EN SIVE PNL CARBON DIOXIDE, TOTAL [MOLES/VOLU ME] IN SERUM OR PLASMA 25 mmol/L 21 - 32 05/27 Specimen Type: PLASMA Comment: eGFR was calculated using the CKD-EPI Creatinine (2020) equation. Ordering Provider: CROW CHEUNG ER Report Released Date/Time: Apr 23, 2024 08:34 AM Reporting Lab: [facility] [address] [facility] [address] Performing Lab: [facility] [address] [facility] [address] [facility] COMPRE[facility]EN SIVE PNL CHLORIDE [MOLES/VOLU ME] IN SERUM OR PLASMA 102 mmol/L 98 - 109 05/27 Specimen Type: PLASMA Comment: eGFR was calculated using the CKD-EPI Creatinine (2020) equation. Ordering Provider: CROW CHEUNG ER Report Released Date/Time: Apr 23, 2024 08:34 AM Reporting Lab: [facility] [address] [place] [phone] Performing Lab: [facility] [address] [place] [address] [facility] COM[facility]EN [facility]IVE PNL CREATININE [MASS/VOLUM E] IN URINE 1.11 mg/dL 0.73 - 1.18 05/27 Specimen Type: PLASMA Comment: eGFR was calculated using the CKD-EPI Creatinine (2020) equation. Ordering Provider: CROW CHEUNG ER Report Released Date/Time: Apr 23, 2024 08:34 AM Reporting Lab: [facility] [address] [facility] [address] Performing Lab: [facility] [address] [facility] [address] [facility] PTH INTCT PARATHYRIN. INTACT [MASS/VOLUM E] IN SERUM OR PLASMA 83.4 pg/mL 18.4 - 80.1 05/27 H Specimen Type: PLASMA No comment entered. Ordering Provider: NANCY SANDERSON Report Released Date/Time: May 11, 2024 04:06 PM Reporting Lab: [facility] [address] [facility] [address] Performing Lab: [facility] [address] [facility] [address] [facility] URINE ALBUMIN/C REAT ([place] URINE) MICROALBUMI N [MASS/VOLUM E] IN URINE 1.5 mg/dL <2.0 - 2.0 05/27 Specimen Type: URINE No comment entered. Ordering Provider: NANCY SANDERSON Report Released Date/Time: May 11, 2024 04:06 PM Reporting Lab: [address] [address] Performing Lab: [address] [address] [facility] URINE ALBUMIN/C REAT ([place] URINE) CREATININE [MASS/VOLUM E] IN URINE 210.70 mg/dL 40 - 278 05/27 Specimen Type: URINE No comment entered. Ordering Provider: NANCY SANDERSON Report Released Date/Time: May 11, 2024 04:06 PM Reporting Lab: [address] [address] Performing Lab: [address] [address] [facility] URINE ALBUMIN/C REAT ([place] URINE) MICROALBUMI N/CREATININ E [RATIO] IN URINE 7 mg/g <30 - 30 05/27 Specimen Type: URINE No comment entered. Ordering Provider: NANCY SANDERSON Report Released Date/Time: May 11, 2024 04:06 PM Reporting Lab: [address] [address] Performing Lab: [address] [address] [facility] VITAMIN D 25-HYDROX Y 25-HYDROXYV ITAMIN D3 [MASS/VOLUM E] IN SERUM OR PLASMA 51.70 ng/mL 30 - 100 05/27 Specimen Type: SERUM Comment: Deficiency <20, Insufficien cy 20-30, Sufficiency 30-100, Toxicity >100 ng/mL Ordering Provider: CROW CHEUNG Report Released Date/Time: Apr 23, 2024 08:34 AM Reporting Lab: [address] [address] Performing Lab: [address] [address] [facility] COMPREHEN MARCO AE PNL ANION GAP [...] Mar 12, 2024 08:39 AM Reporting Lab: [address] [address] Performing Lab: [address] [address] [facility] COMPREHEN SIVE PNL GLOMERULAR FILTRATION RATE/1.73 [...] Mar 12, 2024 08:39 AM Reporting Lab: [address] [address] Performing Lab: [address] [address] [facility] COMPREHEN SIVE PNL GLUCOSE [MASS/VOLUM E] [...] Mar 12, 2024 08:39 AM Reporting Lab: [address] [address] Performing Lab: [address] [address] [facility] COMPREHEN SIVE PNL POTASSIUM [MOLES/VOLU ME] [...] Mar 12, 2024 08:39 AM Reporting Lab: [address] [address] Performing Lab: [address] [address] [facility] SIVE PNL SODIUM [MOLES/VOLU ME] IN SERUM [...] Mar 12, 2024 08:39 AM Reporting Lab: [place] [id number] Performing Lab: [place] [address] [place] [address] COMPREHEN SIVE PNL BILIRUBIN.T OTAL [MASS/VOLUM E] [...] Mar 12, 2024 08:39 AM Reporting Lab: [place] [id number] Performing Lab: [address] [address] [facility] COMPREHEN SIVE PNL PROTEIN [MASS/VOLUM E] [...] Mar 12, 2024 08:39 AM Reporting Lab: [place] [address] Performing Lab: [place] [address] [place] [address] COMPREHEN SIVE PNL ALBUMIN [MASS/VOLUM E] IN [...] Mar 12, 2024 08:39 AM Reporting Lab: [place] [id number] Performing Lab: [place] [address] [facility] COMPREH SIVE PNL ALKALINE PHOSPHATASE [ENZYMATIC [...] Mar 12, 2024 08:39 AM Reporting Lab: [address] [address] Performing Lab: [place] [id number] [facility] COMPREHEN SIVE PNL ALANINE AMINOTRANSF ERASE [...] Mar 12, 2024 08:39 AM Reporting Lab: [address] [address] Performing Lab: [place] [address] [facility] COMPREH SIVE PNL ASPARTATE AMINOTRANSF ERASE [...] Mar 12, 2024 08:39 AM Reporting Lab: [place] [address] Performing Lab: [address] COMPREHEN SIVE PNL UREA NITROGEN [MASS/VOLUM [...] Mar 12, 2024 08:39 AM Reporting Lab: [place] [address] Performing Lab: [address] COMPREH SIVE PNL CALCIUM, TOTAL 9.7 [...] Mar 12, 2024 08:39 AM Reporting Lab: [address] [address] Performing Lab: [address] [address] [facility] COMPREH SIVE PNL CARBON DIOXIDE, TOTAL [...] Mar 12, 2024 08:39 AM Reporting Lab: [address] [address] Performing Lab: [address] [address] [facility] SIVE PNL CHLORIDE [MOLES/VOLU ME] IN SERUM [...] Mar 12, 2024 08:39 AM Reporting Lab: [address] [address] Performing Lab: [address] [address] [facility] CARMELINA CAPELLAN PNL CREATININE [MASS/VOLUM E] [...] Mar 12, 2024 08:39 AM Reporting Lab: [address] [address] Performing Lab: [address] [address] [facility] HIV PCR QUANT (PANEL) HIV 1 [...] Mar 12, 2024 08:39 AM Reporting Lab: [place] [id number] Performing Lab: [facility] [address] [place] [address] [facility] HIV PCR QUANT (PANEL) HIV 1 [...] Mar 12, 2024 08:39 AM Reporting Lab: [place] [id number] Performing Lab: [facility] [address] [place] [address] [facility] LIPID PNL CHOLESTEROL IN HDL [MASS/VOLUM [...] Mar 12, 2024 08:39 AM Reporting Lab: [place] [address] Performing Lab: [place] [address] [place] [address] LIPID PNL TRIGLYCERID E [MASS/VOLUM E] IN [...] Mar 12, 2024 08:39 AM Reporting Lab: [place] [address] Performing Lab: [place] [address] [place] [address] LIPID PNL CHOLESTEROL IN LDL [MASS/VOLUM E] IN SERUM OR PLASMA BY DIRECT ASSAY [facility] 03/30 Specimen Type: PLASMA Comment: Low-risk [...] Mar 12, 2024 08:39 AM Reporting Lab: [address] [address] Performing Lab: [address] [address] [facility] LIPID PNL CHOLESTEROL [MASS/VOLUM E] IN [...] Mar 12, 2024 08:39 AM Reporting Lab: [address] [address] Performing Lab: [address] [address] [facility] LIPID PNL CHOLESTEROL IN LDL [MASS/VOLUM [...] Mar 12, 2024 08:39 AM Reporting Lab: [address] [address] Performing Lab: [place] [id number] [facility] LYMPH SUBSET PANEL 4 ([id number]) -[facility] CD3 CELLS [#/VOLUME] IN BLOOD 1191 {cells }/uL 570 - 2400 03/30 Specimen Type: BLOOD Comment: INTERPRETIV E INFORMATION : Lymphocyte Subset 4, Pct. and Ratio, WB The CD4 cells are [place] T-cells expressing both CD3 and CD4. The CD8 cells are Cytotoxic T-cells expressing both CD3 and CD8. CD3, CD4 and CD8 percentages are reported as a percent of total lymphocytes . CD4 T-cells levels are a criterion for categorizin g HIV-related clinical conditions by CDC's classGlycosanat ion system for HIV infection. The measurement [...] and its performance characteris tics determined by [facility]. It has not been cleared or approved by the US Food and Drug Administrat [place]. This test was performed in a CLIA certified laboratory and is intended for clinical purposes. Performed By: [facility] [address] [place] [id number] Licensed Nuclear Operator: Sabino Diaz MD, PhD CLIA Number: [id number] Ordering Provider: OSWALDO EGAN Report Released Date/Time: Mar 12, 2024 08:39 AM Reporting Lab: [address] [address] Performing Lab: [address] [address] [facility] LYMPH SUBSET PANEL 4 ([id number]) -[facility] CD3+CD4+ (T4 HELPER) CELLS [#/VOLUME] IN BLOOD 634 {cells }/uL 430 - 1800 03/30 Specimen Type: BLOOD Comment: INTERPRETIV E INFORMATION : Lymphocyte Subset 4, Pct. and Ratio, WB The CD4 cells are [place] T-cells expressing both CD3 and CD4. The [...] efficacy of treatment. The Public Health Service ([facility]) has recommended that CD4 T-cell levels be monitored every three to six months in all HIV-infecte d persons. This test was developed and its performance characteris tics determined by [employer]. It has not been cleared or approved by the US Food and Drug Administrat [place]. This test was performed in a CLIA certified laboratory and is intended for clinical purposes. Performed By: [facility] [address] [place] [address] Licensed Nuclear Operator: Sabino Diaz MD, PhD IA Number: [id number] Ordering Provider: OSWALDO EGAN Report Released Date/Time: Mar 12, 2024 08:39 AM Reporting Lab: [facility] [address] [facility] [address] Performing Lab: [facility] [address] [facility] [address] [facility] LYMPH SUBSET PANEL 4 ([id number]) -[facility] CD3+CD8+ (T8 SUPPRESSOR) CELLS [#/VOLUME] IN BLOOD 557 {cells }/uL 210 - 1200 03/30 Specimen Type: BLOOD Comment: INTERPRETIV E INFORMATION : Lymphocyte Subset 4, Pct. and Ratio, WB The CD4 cells are [place] T-cells expressing both CD3 and CD4. The [...] efficacy of treatment. The Public Health Service ([facility]) has recommended that CD4 T-cell levels be monitored every three to six months in all HIV-infecte d persons. This test was developed and its performance characteris tics determined by [employer]. It has not been cleared or approved by the US Food and Drug Administrat [place]. This test was performed in a CLIA certified laboratory and is intended for clinical purposes. Performed By: [facility] [address] [place] [address] Licensed Nuclear Operator: Sabino Diaz MD, PhD CLIA Number: [id number] Ordering Provider: OSWALDO EGAN Report Released Date/Time: Mar 12, 2024 08:39 AM Reporting Lab: [place] [id number] Performing Lab: [address] [address] [facility] LYMPH SUBSET PANEL 4 ([id number]) -[facility] CD3 CELLS/100 CELLS IN SPECIMEN 84 62 - 87 03/30 Specimen Type: BLOOD Comment: INTERPRETIV E INFORMATION : Lymphocyte Subset 4, Pct. and Ratio, WB The CD4 cells are [place] T-cells expressing both CD3 and CD4. The [...] by the US Food and Drug Administrat [place]. This test was performed in a CLIA certified laboratory and is intended for clinical purposes. Performed By: [facility] [address] [place] [address] Licensed Nuclear Operator: Sabino Diaz MD, PhD CLIA Number: [id number] Ordering Provider: OSWALDO EGAN Report Released Date/Time: Mar 12, 2024 08:39 AM Reporting Lab: [address] [address] Performing Lab: [address] [address] [facility] LYMPH SUBSET PANEL 4 ([id number]) -[facility] CD3+CD4+ (T4 HELPER) CELLS/100 CELLS IN BLOOD 45 32 - 64 03/30 Specimen Type: BLOOD Comment: INTERPRETIV E INFORMATION : Lymphocyte Subset 4, Pct. and Ratio, WB The CD4 cells are [place] T-cells expressing both CD3 and CD4. The [...] efficacy of treatment. The Public Health Service ([facility]) has recommended that CD4 T-cell levels be monitored every three to six months in all HIV-infecte d persons. This test was developed and its performance characteris tics determined by [employer]. It has not been cleared or approved by the US Food and Drug Administrat [place]. This test was performed in a CLIA certified laboratory and is intended for clinical purposes. Performed By: [facility] [address] [place] [address] Licensed Nuclear Operator: Sabino Diaz MD, PhD CLIA Number: [id number] Ordering Provider: OSWALDO EGAN Report Released Date/Time: Mar 12, 2024 08:39 AM Reporting Lab: [facility] [address] [facility] [address] Performing Lab: [facility] [address] [facility] [address] [facility] LYMPH SUBSET PANEL 4 ([id number]) -[facility] CD3+CD8+ (T8 SUPPRESSOR) CELLS/100 CELLS IN SPECIMEN 39 15 - 46 03/30 Specimen Type: BLOOD Comment: INTERPRETIV E INFORMATION : Lymphocyte Subset 4, Pct. and Ratio, WB The CD4 cells are [place] T-cells expressing both CD3 and CD4. The [...] efficacy of treatment. The Public Health Service ([facility]) has recommended that CD4 T-cell levels be monitored every three to six months in all HIV-infecte d persons. This test was developed and its performance characteris tics determined by [facility]. It has not been cleared or approved by the US Food and Drug Administrat [place]. This test was performed in a CLIA certified laboratory and is intended for clinical purposes. Performed By: [facility] [address] [place] [id number] Licensed Nuclear Operator: Sabino Diaz MD, PhD CLIA Number: [id number] Ordering Provider: OSWALDO EGAN Report Released Date/Time: Mar 12, 2024 08:39 AM Reporting Lab: [address] [address] Performing Lab: [address] [address] [facility] LYMPH SUBSET PANEL 4 ([id number]) -[facility] CD3+CD4+ (T4 HELPER) CELLS/CD3+C D8+ (T8 SUPPRESSOR CELLS) CELLS [# RATIO] IN BLOOD 1.15 {ratio } 0.80 - 3.90 03/30 Specimen Type: BLOOD Comment: INTERPRETIV E INFORMATION : Lymphocyte Subset 4, Pct. and Ratio, WB The CD4 cells are [place] T-cells expressing both CD3 and CD4. The [...] by the US Food and Drug Administrat [place]. This test was performed in a CLIA certified laboratory and is intended for clinical purposes. Performed By: [facility] [address] [place] [address] Licensed Nuclear Operator: Sabino Diaz MD, PhD CLIA Number: [id number] Ordering Provider: OSWALDO EGAN Report Released Date/Time: Mar 12, 2024 08:39 AM Reporting Lab: [facility] [address] [facility] [address] Performing Lab: [address] [address] [facility] LYMPH SUBSET PANEL 4 ([id number]) -[facility] ANNOTATION COMMENT [INTERPRETA TION] NARRATIVE See Note 03/30 Specimen Type: BLOOD Comment: INTERPRETIV E INFORMATION : Lymphocyte Subset 4, Pct. and Ratio, WB The CD4 cells are [place] T-cells expressing both CD3 and CD4. The [...] by the US Food and Drug Administrat [place]. This test was performed in a CLIA certified laboratory and is intended for clinical purposes. Performed By: [facility] [address] [place], [place] [id number] Licensed Nuclear Operator: Sabino Diaz MD, PhD CLIA Number: [id number] Ordering Provider: OSWALDO EGAN Report Released Date/Time: Mar 12, 2024 08:39 AM Reporting Lab: [facility] [address] [place] [address] Performing Lab: [address] [address] [facility] PHOS PHOS 2.9 mg/dL 2.4 - [...] Mar 12, 2024 08:39 AM Reporting Lab: [address] [address] Performing Lab: [address] [address] [facility] VITAMIN D 25-HYDROX Y 25-HYDROXYV ITAMIN D3 [MASS/VOLUM E] IN SERUM OR PLASMA 48.30 ng/mL 30 - 100 03/30 Specimen Type: SERUM Comment: Deficiency <20, Insufficien cy 20-30, Sufficiency 30-100, Toxicity >100 ng/mL Ordering Provider: OSWALDO EGAN Report Released Date/Time: Mar 12, 2024 08:39 AM Reporting Lab: [address] [address] Performing Lab: [address] [address] [facility] Vital Signs Combined list of inpatient and outpatient Vital Signs from Department of Defense and Veterans Affairs, ranging from 12 months to all on record, depending upon the facility. Vital Sign Value Date Comments Source SYSTOLIC BLOOD PRESSURE 152 05/27/2024 13:49:34 [facility] DIASTOLIC BLOOD PRESSURE 92 05/27/2024 13:49:34 [facility] PULSE OXIMETRY 94 05/27/2024 13:49:34 [facility] WEIGHT 264.4 05/27/2024 13:49:34 [facility] BMI 33 kg/m2 05/27/2024 13:49:34 [facility] PAIN 7 05/27/2024 13:49:34 [facility] TEMPERATURE 97.7 05/27/2024 13:49:34 [facility] PULSE 103 05/27/2024 13:49:34 [facility] RESPIRATION 22 05/27/2024 13:49:34 [facility] SYSTOLIC BLOOD PRESSURE 153 05/11/2024 14:19:31 [facility] DIASTOLIC BLOOD PRESSURE 99 05/11/2024 14:19:31 [facility] PULSE OXIMETRY 94 05/11/2024 14:19:31 [facility] WEIGHT 268 05/11/2024 14:19:31 [facility] BMI 34 kg/m2 05/11/2024 14:19:31 [facility] PAIN 6 05/11/2024 14:19:31 [facility] HEIGHT 75 05/11/2024 14:19:31 [facility] TEMPERATURE 97.5 05/11/2024 14:19:31 [facility] PULSE 70 05/11/2024 14:19:31 [facility] RESPIRATION 20 05/11/2024 14:19:31 [facility] SYSTOLIC BLOOD PRESSURE 153 12/15/2023 13:59:53 [facility] DIASTOLIC BLOOD PRESSURE 104 12/15/2023 13:59:53 [facility] PULSE OXIMETRY 95 12/15/2023 13:59:53 [facility] WEIGHT 269 12/15/2023 13:59:53 [facility] BMI 34 kg/m2 12/15/2023 13:59:53 [facility] PAIN 5 12/15/2023 13:59:53 [facility] HEIGHT 75 12/15/2023 13:59:53 [facility] TEMPERATURE 97.7 12/15/2023 13:59:53 [facility] PULSE 73 12/15/2023 13:59:53 [facility] SYSTOLIC BLOOD PRESSURE 146 12/10/2023 11:45:[address] [facility] [facility] DIASTOLIC BLOOD PRESSURE 99 12/10/2023 11:45:[address] [facility] PULSE OXIMETRY 94 12/10/2023 11:45:29 [facility] [place] [...] to the last 18 months, not all MS inpatient encounters are included; 2) Encounters 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 Location Location Details Encounter Type Encounter Number Reason For Visit Attending Provider ADM Date DC Date Status Disposition Source ANGELO JOHN [facility] OFFICE O/P EST MOD 30-39 MIN [id number] Diagnos is: ICD-10- CM F33.41 Major depress ketty disorde r, recurre nt, in partial remissi on PREETI MARCOS 01/14 [facility] IELD [facility] Outpatient Encounter [id number] 01/23 [facility] Outpatient Encounter [id number] 01/23 [facility] Outpatient Encounter [id number] 01/23 [facility] Outpatient Encounter [id number] [id number] 01/24 [facility] Outpatient Encounter [id number] 01/24 [facility] Outpatient Encounter [id number] 01/24 [facility] Outpatient Encounter [id number] [id number] 01/28 [facility] Outpatient Encounter [id number] [id number] 02/27 [facility] QNHP OL DIG ASSMT&MGMT 5-10 [id number] [id number] Diagnos is: ICD-10- CM Z79.01 penitentiary (curren t) use of anticoa BEVERLEY Smith 03/17 [facility] QNHP OL DIG ASSMT&MGMT 5-10 [id number] Diagnos is: ICD-10- CM I48.0 Paroxys mal atrial fibrill ation ELIAN COOPER 04/17 [facility] Outpatient Encounter [id number] 04/18 [facility] Outpatient Encounter [id number] [id number] 05/02 [facility] Outpatient Encounter [id number] 05/08 [facility] Outpatient Encounter [id number] [id number] 05/08 [facility] Outpatient Encounter [id number] [id number] 05/15 [facility] Outpatient Encounter [id number] [id number] 05/17 [facility] OFFICE O/P EST MOD 30 MIN [id number] Diagnos is: ICD-10- CM B20 Human immunod eficien cy virus [HIV] disease OSWALDO EGAN 05/20 [facility] Outpatient Encounter [id number] [id number] 05/20 [facility] OFFICE O/P EST MOD 30 MIN [id number] [id number] Diagnos is: ICD-10- CM N17.9 Acute kidney failure , unspeci fied NANCY JAIMES 05/20 [facility] Outpatient Encounter [id number] [id number] 05/20 [facility] Outpatient Encounter [id number] [id number] 05/20 [facility] Outpatient Encounter [id number] [id number] 05/21 [facility] Outpatient Encounter [id number] [id number] 05/21 [facility] Outpatient Encounter [id number] [id number] 05/22 [facility] Outpatient Encounter [id number] [id number] 05/22 [facility] Outpatient Encounter [id number] [id number] 05/23 [facility] Outpatient Encounter [id number] [id number] 05/23 [facility] Outpatient Encounter [id number] [id number] 06/12 [facility] Outpatient Encounter [id number] [id number] 06/12 [facility] OFFICE O/P EST MOD 30 MIN [id number] [id number] Diagnos is: ICD-10- CM F33.41 Major depress ketty disorde r, recurre nt, in partial remissi on [facility] 06/12 [facility] Outpatient Encounter [id number] [id number] 08/18 [facility] Outpatient Encounter [id number] [id number] 08/18 [facility] Outpatient Encounter [id number] [id number] 08/20 [facility] Outpatient Encounter [id number] [id number] 08/21 [facility] Outpatient Encounter [id number] [id number] 08/26 [facility] Outpatient Encounter [id number] [id number] 08/27 [facility] PSYTX W PT W E/M 30 MIN [id number] [id number] Diagnos is: ICD-10- CM F32.5 Major depress ketty disorde r, single episode , in full remissi on [facility] 09/11 [facility] Outpatient Encounter [id number] 09/15 [facility] Outpatient Encounter [id number] [id number] 09/30 [facility] Outpatient Encounter [id number] [id number] 09/30 [facility] Outpatient Encounter [id number] [id number] 10/28 [facility] Outpatient Encounter [id number] [id number] 11/09 [facility] Outpatient Encounter [id number] [id number] 11/10 [facility] Outpatient Encounter [id number] [id number] 11/10 [facility] Outpatient Encounter [id number] [id number] 11/18 [facility] Outpatient Encounter [id number] [id number] SHYANN ESCAMILLA 11/25 [facility] Outpatient Encounter [id number] [id number] 11/30 [facility] Outpatient Encounter [id number] [id number] 12/01 [facility] Outpatient Encounter [id number] [id number] 12/01 [facility] Outpatient Encounter [id number] [id number] 12/07 [facility] OFF/OP CONSLTJ NEW/[place] HI 55 [id number] [id number] Diagnos is: ICD-10- CM Z01.810 Encount er for preproc edural cardiov ascular examina marcella ADHIKARI ID,SHRUTHIA Isa 12/09 [facility] Outpatient Encounter [id number] [id number] 12/11 [facility] OFFICE O/P EST MOD 30 MIN [id number] [id number] Diagnos is: ICD-10- CM M75.101 Unsp rotatr- cuff tear/ru ptr of right shoulde r, not trauma Lencho JOHNSON 12/14 [facility] Outpatient Encounter [id number] [id number] 12/21 [facility] Outpatient Encounter [id number] [id number] 12/23 [facility] Outpatient Encounter [id number] [id number] 12/30 [facility] Outpatient Encounter [id number] [id number] 01/26 [facility] Brian [facility] Outpatient Encounter [id number] [id number] 02/04 [facility]ENT Aaron GARCIA [facility] Outpatient Encounter [id number] [id number] 02/15 [facility] Outpatient Encounter [id number] [id number] 02/16 [facility] Outpatient Encounter [id number] [id number] 02/17 [facility] Outpatient Encounter [id number] [id number] 02/26 [facility] Outpatient Encounter [id number] [id number] SHYANN ESCAMILLA 03/02 [facility] QNHP OL DIG ASSMT&MGMT 5-10 [id number] [id number] Diagnos is: ICD-10- CM I48.0 Paroxys mal atrial fibrill ation ELIAN COOPER 03/12 [facility] Outpatient Encounter [id number] [id number] 03/12 [facility] Outpatient Encounter [id number] [id number] 03/18 [facility] Outpatient Encounter [id number] [id number] 03/30 [facility] Outpatient Encounter [id number] [id number] 04/05 [facility] Outpatient Encounter [id number] [id number] 04/08 [facility] Outpatient Encounter [id number] [id number] 04/09 [facility] Outpatient Encounter [id number] [id number] Diagnos is: ICD-10- CM B20 Human immunod eficien cy virus [HIV] disease OSWALDO EGAN 04/14 [facility] Outpatient Encounter [id number] 04/16 [facility] Outpatient Encounter [id number] [id number] 04/20 [facility] Outpatient Encounter [id number] [id number] XI REGALADOVarun Ruelas 04/23 [facility] Outpatient Encounter [id number] [id number] SAM STRICKLAND 05/06 [facility] OFFICE O/P EST MOD 30 MIN [id number] [id number] Diagnos is: ICD-10- CM N17.9 Acute kidney failure , unspeci fied ESTEBANNANCY CORNEJO 05/11 [facility] Outpatient Encounter [id number] [id number] 05/25 [facility] Outpatient Encounter [id number] 05/25 [facility] Outpatient Encounter [id number] 05/26 [facility] Outpatient Encounter [id number] 05/27 [facility] OFFICE O/P EST LOW 20 MIN [id number] [id number] Diagnos is: ICD-10- CM M25.569 Pain in unspeci fied knee ANA,RASHID L L 05/27 [facility] Outpatient Encounter [id number] 05/27 [facility] Outpatient Encounter [id number] 05/31 [facility] Outpatient Encounter [id number] [id number] 05/31 [facility] Outpatient Encounter [id number] 05/31 [facility] Outpatient Encounter [id number] [id number] 05/31 [facility] Outpatient Encounter [id number] 06/01 [facility] Outpatient Encounter [id number] [id number] 06/02 [facility] Outpatient Encounter [id number] 8 SHYANN ESCAMILLA 06/04 [facility] Outpatient Encounter [id number] 06/07 [facility] Outpatient Encounter [id number] [id number] 06/07 [facility] Outpatient Encounter [id number] [id number] 06/09 [facility] Outpatient Encounter [id number] [id number] 06/10 [facility] Outpatient Encounter [id number] [id number] 06/17 [facility] Social History Combined list of available smoking, tobacco, and other social history from [employer] and [facility] facilities. Social History Type Response Date Comment Source Tobacco smoking status [facility] VA-TOBACCO FORMER USER 12/10/2023 [facility] History of tobacco use VA-TOBACCO QUIT 15 YRS OR MORE 12/10/2023 [facility] History of tobacco use VA-TOBACCO FORMER USER 08/13/2022 [facility] History of tobacco use VA-TOBACCO FORMER USER 04/03/2021 [facility] History of tobacco use VA-TOBACCO FORMER USER 01/18/2020 [facility] History of tobacco use VA-TOBACCO FORMER USER 11/27/2018 [facility] History of tobacco use VA-TOBACCO QUIT 5 TO < 15 YRS 01/23/2018 [facility] History of tobacco use TOBACCO CESSATION MEDS REFUSED 05/01/2017 STOP 10YEARS AGO [facility] History of tobacco use TOBACCO CESSATION MEDS REFUSED 03/18/2016 STOPPED 8YRS AGO [facility] History of tobacco use LIFETIME NON-USER OF TOBACCO 12/16/2013 [facility] Plan of Care List of future care activities from [facility] facilities. Additional future care activities may be listed in the Assessment and Plan section. Date/Time Care Activity Care Activity Detail Facili ty 06/29/2024 AMBULATORY - NONE [facility]ONE [facility] 06/29/2024 AMBULATORY - NONE [facility]ORY - NONE [facility] 10/05/2024 AMBULATORY - NONE AMBULATORY - NONE 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 An actual copy of the Directive is not included. Date Advance Directive Provider Source 12/31/2023 ADVANCE DIRECTIVE DISCUSSION [facility]
== END 2024-06-22 20:07 | disposition home or self-care (01) ==
PROVIDERS: Emergency Medicine; Emergency Provider Emergency Medicine
DX: I47.10 Supraventricular tachycardia, unspecified (principal); K21.9 Gastro-esophageal reflux disease without esophagitis; E78.5 Hyperlipidemia, unspecified; I10 Essential (primary) hypertension; I48.91 Unspecified atrial fibrillation; Z87.891 Personal history of nicotine dependence
CPT/HCPCS: 36415; 71045; 80053; 83690; 83735; 84484; 85025; 85610; 85730; 93005; 96374; 99284; A9270; J0153; J7030

== ENCOUNTER 2024-08-13 16:43 | Emergency (ER) | payer OTHER, SELFPAY ==
--- NOTE | ~2024-08-13 | XR_ITS ---
XR foot LT min 3V Ordering provider: Addis Peguero MD History: . swelling . Comparison: None. FINDINGS: BONES: No acute fracture or dislocation. Old healed fracture in the base of the fifth metatarsal bone is noted. Possibility of a bony fragment between the talus, cuboid, navicular bone and the calcaneus is not excluded although this most likely summation shadow. Follow-up advised. JOINT SPACES: Normal. No tarsal coalition. SOFT TISSUES: Calcaneal spur. Ossification of the insertion of the tendo Achilles. Soft tissue swelli ng over the medial and lateral malleoli is noted. IMPRESSION: No definite acute osseous abnormality left foot. Possible bony fragment between the tarsal bones as d escribed above. Follow-up advised Reviewed, dictated and finalized at location A. IMPRESSION: No definite acute osseous abnormality left foot. Possible bony fragment between the tarsal bones as described above. Follow-up advised
--- NOTE | ~2024-08-13 | XR_ITS ---
XR ankle LT min 3V Ordering provider: Addis Peguero MD History: . swelling . Comparison: None. FINDINGS: BONES: No acute fracture or dislocation. JOINT SPACES: The ankle mortise is normal. SOFT TISSUES: Normal. Calcaneal spur. Ossification of the insertion of the tendo Achilles. IMPRESSION: No acute osseous abnormality left ankle. Reviewed, dictated and finalized at location A.
--- NOTE | ~2024-08-13 | US_ITS ---
LEFT LOWER EXTREMITY VENOUS ULTRASOUND Ordering provider: Addis Peguero MD History: . r/o DVT . Comparison: None. FINDINGS: --COMMON FEMORAL: Patent and free of thrombus. Normal compressibility, phasic flow and augmentation. --PROXIMAL SUPERFICIAL FEMORAL: Patent and free of thrombus. Normal compressibility, phasic flow and augmentation. --DISTAL SUPERFICIAL FEMORAL: Patent and free of thrombus. Normal compressibility, phasic flow and au gmentation. --POPLITEAL: Patent and free of thrombus. Normal compressibility, phasic flow and augmentation. --POSTERIOR TIBIAL: Patent and free of thrombus. Normal compressibility, phasic flow and augmentation . IMPRESSION: Negative left lower extremity venous US. No deep vein thrombosis. Reviewed, dictated and finalized at location A.
--- OUTSIDE RECORDS SUMMARY | 2024-08-13 16:47 | XMS_ITS | Encounter Summary ---
Author Name [facility] Organization [facility] [place] Address [address] [place] [address] Care Team Providers Care Professional Programmer Analyst Name Role Phone FARIBA CHEUNG Primary Care Provider Unavailabl e Selected Encounter This section includes the information on record at [place] for the Encounter. Date/Time Encounter Type Encounter Description Reason Provider Source Dec 15, 2023 02:00 PM OFFICE O/P EST MOD 30 MIN PRIMARY CARE/MEDICINE ICD-10-CM M75.101 Unsp rotatr-cuff tear/ruptr of right shoulder, not trauma JOAQUIN JOHNSON Isa Encounter Template Text not used by [place] Assessments - Encounter Diagnoses This section includes the primary and secondary diagnoses documented for the Encounter. Date/Time Primary/Secondary Diagnosis Diagnosis Name Provider Source Dec 15, 2023 05:07 PM PRIMARY Unsp rotatr-cuff tear/ruptr of right shoulder, not trauma REGINALD JOHNSON [facility] Dec 15, 2023 05:07 PM SECONDARY Encounter for other preprocedural examination REGINALD JOHNSON [facility] Plan of Treatment: Future Appointments (+ 6 months) and Future Tests (+/- 45 days) The Plan of Treatment section includes future care activities for the patient from all [place] treatmentfacilities. This section includes future appointments and future orders which are active, pending or scheduled. Future Appointments This section includes appointments that were scheduled to occur 6 months from the date of the Encounter, up to a maximum of 20 appointments. The data comes from all [place] treatment facilities. Appointment Date/Time Appointment Type Appointme nt Facility Name Jan 27, 2024 03:00 PM AMBULATORY - PSYCHIATRY SP [facility] Feb 03, 2024 01:30 PM AMBULATORY - NONE [facility] Mar 30, 2024 01:50 PM AMBULATORY - NONE [facility] Apr 14, 2024 01:30 PM [facility]ORY [facility] NONE [facility] May 11, 2024 01:30 PM AMBULATORY - NONE [facility] May 27, 2024 02:00 PM AMBULATORY - MEDICINE [facility] May 27, 2024 02:40 PM AMBULATORY - NONE [facility] Jun 10, 2024 01:05 PM [facility]ORY [facility] NONE [facility] Jun 10, 2024 01:20 PM [facility]ONE [facility] Vital Signs: All taken on the encounter date This section contains inpatient and outpatient Vital Signs collected on the date of the Encounter. Date/Time Temperature Pulse Blood Pressure Respiratory Rate SP02 Pain Height Weight Body Mass Index Source Dec 15, 2023 02:12 PM 122/94 [facility] Dec 15, 2023 01:59 PM 97.7 73 153/104 95 5 75 269 34 [facility] Social History: Smoking Status (Most current) and Tobacco Use (All prior to encounter date) This section includes the most current, and the historical, smoking and tobacco- related health factors from the [place] facility where the Encounter took place. Current Smoking Status This section includes the most current smoking, or tobacco-related health factor, from the [place] facility where the Encounter took place. Date/Time Current Smoking Status Comment Kyra kumar Aug 13, 2022 01:30 PM VA-TOBACCO FORMER USER [facility] Tobacco Use History This section includes a history of the smoking, or tobacco-related health factors, that were collected on or before the date of the Encounter. The data comes from the [place] facility where the Encounter took place. Date/Time Smoking Status/Tobac co Use Comment Facility Aug 13, 2022 01:30 PM VA-TOBACCO QUIT 5 TO < 15 YRS [facility] Apr 03, 2021 01:30 PM VA-TOBACCO FORMER USER [facility] Apr 03, 2021 01:30 PM VA-TOBACCO QUIT 5 TO < 15 YRS [facility] Jan 18, 2020 11:00 AM VA-TOBACCO FORMER USER [facility] Jan 18, 2020 11:00 AM VA-TOBACCO QUIT 5 TO < 15 YRS [facility] Jan 23, 2018 08:39 AM VA-TOBACCO FORMER USER [facility] Jan 23, 2018 08:39 AM VA-TOBACCO QUIT 5 TO < 15 YRS [facility] May 01, 2017 01:39 PM QUIT TOBACCO >7 YEARS AGO 10YEARS AGO [facility] May 01, 2017 01:39 PM TOBACCO CESSATION MEDS REFUSED STOP 10YEARS AGO [facility] May 01, 2017 01:39 PM TOBACCO CESSATION REFERRAL REFUSED [facility] May 01, 2017 01:39 PM TOBACCO OFFERRED STOP SMOKING CLINIC [facility] Mar 18, 2016 02:02 PM QUIT TOBACCO >7 YEARS AGO [facility] Mar 18, 2016 02:02 PM TOBACCO CESSATION MEDS REFUSED STOPPED 8YRS AGO [facility] Mar 18, 2016 02:02 PM TOBACCO CESSATION REFERRAL REFUSED [facility] Mar 18, 2016 02:02 PM TOBACCO OFFERRED STOP SMOKING [facility] Dec 16, 2013 08:31 AM LIFETIME NON-USER OF TOBACCO [facility] Advance Directives: All historical and current Section Date Range: From patient's date of to the date document was created. This section includes ALL of a patient's completed or amended [place] Advance and Rescinded Directives. The entries below indicate that a directive exists for the patient, but an actual copy is not included with this document. The data comes from all [place] facilities. Date Advance Directives Provider Source Dec 31, 2023 ADVANCE DIRECTIVE DISCUSSION Martin MONGE [facility] Encounter Notes: All associated encounter notes This [...] for R shoulder surgery Dr Naidu 12/24/2023 [facility] R Shoulder Cardiac note states moderate risk [place] states they are doing all the labs [...] Not worried about housing near future The [place] reports the following: Within the past 12 [...] and/or Advance Directive: Yes Patient referred to Pick Up Operator for assistance with Advance Directive. ACP Pick Up Operator has been notified of this request. MOVE!: MOVE! (Managing Overweight/Obesity for Veterans Everywhere) HEIGHT: 75 in [190.5 cm] (12/15/2023 13:59) WEIGHT: 269 lb [122.02 kg] (12/15/2023 13:59) BODY MASS INDEX: 33.7 (DEC 15, 2023@13:59:53) 'MOVE'---MANAGING OVERWEIGHT/OBESE VETERANS EVERYWHERE! Are you interested in speaking with a nutrition defensive secondary coach (dietitian)? Dietitians, exercise therapists, and healthy behavior coaches will work with you to create a customized plan that includes meal preparation, exercise guidance, and motivation to lose weight. Patient declines referral. RACHELLE-EDUCATION ASSESSMENT: `````````````````````````` ```````````` ANNUAL EDUCATION NEEDS/BARRIER ASSESSMENT Primary healthcare language: Panamanian Barriers to Learning: Physical: Hearing Impairment Visual [...] past 12 months? YES. Known reason: Reason: [place] like he was going to faint so he laid down Consult Orders placed: No Consult orders needed. RACHELLE-SKIN RISK ASSESSMENT: RACHELLE/SKIN RISK REMINDER *PERIANESTHESIA MANAGER* The [place] reports no current pressure ulcers, wounds, or a history of pressure ulcers. The [place] reports no use of a wheelchair for mobility at least 75% of the time. Td / Tdap Immunization: The patient declines to receive the recommended dose of Td/Tdap vaccine. Immunization: TD(ADULT) UNSPECIFIED FORMULATION Refusal Reason: PATIENT DECISION Patient refuses all immunization(s) in the Td group Date Documented: 12/15/23 14:09 Stress: In the last 6 months, [place] identified the following causes of stress or [...] Blood Pressure rechecked: 122/94 /craig/ SILVIA NUGENT PERIANESTHESIA MANAGER Signed: 12/15/2023 14:13 SILVIA NUGENT [facility] Dec 15, 2023 01:50 PM PRIMARY CARE NOTE: LOCAL TITLE: PRIMARY CARE/PROVIDER NOTE STANDARD TITLE: PRIMARY CARE NOTE DATE OF NOTE: DEC 15, 2023@13:50 ENTRY DATE: DEC 15, 2023@13:50:37 AUTHOR: JOAQUIN JOHNSON COSIGNER: URGENCY: STATUS: COMPLETED CC: preoperative physical exam [place] is here for a H&P for R shoulder surgery Dr Naidu 12/24/2023 [facility] R Shoulder Mr. Cueva is a [...] 12. Diverticulitis 13. Panic attack 14. Thrombocytopenia ([facility] [id number]) 15. HIV - Human Immunodeficiency Virus Infection ([facility] [id number]) 16. Chronic Low Back Pain ([facility] [id number]) 17. Spinal Stenosis of Lumbar Region ([facility] [id number]) 18. Vitamin D deficiency 19. Tinnitus 20. [...] 5/5 throughout No significant dysmetria noted with [id number] Skin on hands warm and dry; skin [...] *Pre-Op assessments* = Had cardiac clearance with [place] cardiology, impression as follows: Assessment & Plan: [...] MACE score, cardiac: 0.0% (avg risk 0.0%) [email or web address] RCRI: 0 points, [...] FACILITY ALLERGY/ADR -------- [facility] ATORVASTATIN [facility] PRAVASTATIN [facility] ATORVASTATIN MRR1 - Med Reconciliation INCLUDED IN THIS LIST: Alphabetical list of active outpatient prescriptions dispensed from this [place] (local) and dispensed from another [place] or [facility] facility (remote) as well as inpatient orders (local pending and active), local clinic medications, locally documented non-VA medications, and local prescriptions that have or been discontinued in the past 90 days. Non-VA Meds Last Documented On: Jan 23, 2018 NOTE The display of VA prescriptions dispensed from another SD or DoD facility (remote) is limited to active outpatient prescription entries matched to National Drug File at the originating site and may not include some items such as investigational drugs, compounds, etc. NOT INCLUDED IN THIS LIST: Medications self-entered by the patient into personal health records (i.e. IS Decisions) are NOT included in this list. Non-VA medications documented outside this SD, remote inpatient orders (regardless of status) and [...] TABLET BY MOUTH TWICE A DAY Rx# [id number] Last Released: 10/02/23 Qty/Days Supply: 180/ Rx Expiration Date: 04/20/24 Refills Remainin Non-VA ASPIRIN 81MG EC TAB TAKE ONE TABLET BY MOUTH EVERY DAY Patient wants to buy from non-VA pharmacy OUTPT BIC 50/EMT 200/TEN 25 (EQV-BIKTARVY) TAB (Status = Active) TAKE 1 TABLET BY MOUTH EVERY DAY FOR INFECTION DO NOT MIX WITH MINERALS/MVI FOR ADEQUATE ABSORPTION. Rx# [id number] Last Released: 08/09/23 Qty/Days Supply: Rx Expiration Date: 08/08/24 Refills Remainin OUTPT BUSPIRONE HCL 5MG TAB (Status = Active) TAKE ONE TABLET BY MOUTH TWICE A DAY FOR ANXIETY Rx# [id number] Last Released: 09/24/23 Qty/Days Supply: Rx Expiration Date: 09/12/24 Refills Remainin Indication: FOR ANXIETY OUTPT DILTIAZEM (EQV-TIAZAC AB4) 240MG 24HR CP (Status = Active) TAKE ONE CAPSULE BY MOUTH EVERY DAY FOR BLOOD PRESSURE/HEART Rx# [id number] Last Released: 08/30/23 Qty/Days Supply: Rx Expiration Date: 05/15/24 Refills [facility]ain[facility] OUTPT ERGOCALCIF 1,250MCG (D2-50,000UNIT) CAP (Status = Active) TAKE ONE CAPSULE BY MOUTH ONCE WEEKLY ON FRIDAY FOR VITAMIN D- SUPPLEMENT Rx# [id number] Last Released: 08/28/23 Qty/Days Supply: Rx Expiration Date: 01/07/24 Refills Remainin OUTPT LIDOCAINE 5% PATCH (Status = ) USE 1 PATCH TOPICALLY TO DRY, HAIRLESS AREA ONCE DAILY NEEDED FOR PAIN PRESS PATCH ONTO THE SKIN FOR 10-15 SECONDS TO HEAT ACTIVATE THE ADHESIVE. REMOVE PATCH(ES) AFTER 12 HOURS AND LEAVE OFF FOR 12 HOURS. Rx# [id number] Last Released: 10/24/22 Qty/Days Supply: Rx Expiration Date: 10/25/23 Refills Remainin Indication: FOR PAIN OUTPT METOPROLOL SUCCINATE 50MG SA TAB (Status = ) TAKE ONE TABLET BY MOUTH NIGHTLY FOR BLOOD PRESSURE Rx# [id number] Last Released: 08/09/23 Qty/Days Supply: Rx Expiration Date: 11/14/23 Refills Remainin Indication: FOR BLOOD PRESSURE OUTPT PANTOPRAZOLE NA 40MG EC TAB (Status = ) TAKE ONE TABLET BY MOUTH EVERY DAY Rx# [id number] Last Released: 07/17/23 Qty/Days Supply: Rx Expiration Date: 11/14/23 Refills Remainin OUTPT POTASSIUM CL 20MEQ SA TAB (DISPERSIBLE) (Status = Active) TAKE ONE TABLET BY MOUTH DAILY FOR POTASSIUM SUPPLEMENT Rx# [id number] Last Released: 08/28/23 Qty/Days Supply: Rx Expiration Date: 05/08/24 Refills Remainin OUTPT TAMSULOSIN HCL 0.4MG CAP (Status = Discontinued) TAKE ONE CAPSULE BY MOUTH EVERY EVENING TAKE 30 MINUTES AFTER A MEAL Rx# [id number] Last Released: 07/23/23 Qty/Days Supply: Rx Expiration Date: 05/15/24 Refills Remainin Indication: FOR PROSTATE OUTPT TAMSULOSIN HCL 0.4MG CAP (Status = Active) TAKE ONE CAPSULE BY MOUTH EVERY EVENING TAKE 30 MINUTES AFTER A MEAL Rx# [id number] Last Released: 10/04/23 Qty/ Supply: Rx Expiration Date: 10/01/24 Refills Remainin Indication: FOR PROSTATE OUTPT VENLAFAXINE HCL 150MG 24HR SA CAP (Status = Active) TAKE ONE CAPSULE BY MOUTH DAILY FOR DEPRESSION WITH FOOD - MOOD Rx# [id number] Last Released: 12/15/23 Qty/Days Supply: Rx Expiration Date: 09/12/24 Refills Remainin Indication: FOR DEPRESSION SUPPLIES Potential risks, benefits, and alternative to medications prescribed were discussed with /caregiver who was given an opportunity to ask questions, which were answered to the best of my ability and seemingly to their satisfaction. /caregiver was/were instructed to contact provider (means provided) with any concerns or questions. A list of reconciled medications was provided to the /caregiver. /craig/ Joaquin Johnson PA-C Physician Geometrician Signed: 12/15/2023 17:07 JOAQUIN JOHNSON [facility]
--- OUTSIDE RECORDS SUMMARY | 2024-08-13 16:47 | XMS_ITS | Encounter Summary ---
Author Name [facility] Organization [place] Address [address] [place] [address] Care Team Providers Care Cargo Handler Name Role Phone FARIBA CHEUNG Primary Care Provider Unavailabl e Selected Encounter This section includes the information on record at [place] for the Encounter. Date/Time Encounter Type Encounter [...] this document. The data comes from all [place] facilities. Date Advance Directives Provider Source Dec 31, 2023 ADVANCE DIRECTIVE DISCUSSION [facility]
--- OUTSIDE RECORDS SUMMARY | 2024-08-13 16:47 | XMS_ITS | Encounter Summary ---
Author Organization [facility] Healthcare Address [address] [place] [address] Care Team Providers Care Casing Finisher And Stuffer Name Role Phone Administration, Tiffany ALLEN Primary Care Provide r Unavailable Encounter Details Date Type Department Care Team (Late st Contact Info) Description 07/16/2024 Telephone [facility] Medical Group Cardiology [address] [facility] [address] [place] [address] Harris Nevarez MD [address] [place], [place] [id number] Social History Tobacco Use Types Packs/Day Years [...] Date Recorded PHQ-2 Total Score 0 11/23/2023 PHQ-9 Answer Date Recorded PHQ-9 Total Score 0 11/23/2023 Personal Safety Answer Date Recorded Have you ever been in or are you currently in a harmful physical or emotional relationship or is someone making you feel afraid or unsafe? Denies 12/24/2023 Sex and Gender Information Value Date Recorded Sex Assigned at Not on file Legal Sex Male 9:53 AM TRANSITION RN Gender Identity Not on file Sexual Orientation Not on file documented as of this encounter Miscellaneous Notes * Telephone Encounter - Esperanza Sawyer MA - 07/21/2024 1:52 PM CDT Signed Prior Auth was signed by Dr. Nevarez and refaxed to Cece, at [facility] Authorizations. * Telephone Encounter - Esperanza Sawyer MA - 07/20/2024 1:14 PM CDT Called patients insurance (through the [facility]) , I was transferred multiple times before I reached the [place] Cardiology department. I was then told that the patient has not PCP and not seen Cardiology and needs a appointment with both in order to try to get the patients Leqvio approved. Oncepatient is seen the PCP or Stage Producer can prescribe the Leqvio and try and get approved through the patients insurance or if the patient chooses to stay with [facility], we can call and see if his PCP or Stage Producer through the VA will approve once he is seen. I called Teresa, from [facility] Auths and she said she had a form from the VA for patients Leqvio. She needed Dr. Nevarez to sign and fax back to her and she will continue to try and obtain the Prior Auth. Once Dr. Nevarez signs form I will fax to Teresa, for her to continue to work on Prior Auth. * Telephone Encounter - Yoly Dale - 07/19/2024 12:26 PM CDT Teresa from [facility] authorization team requesting call back with an update in regard to auth for Leqvio. Contact: * Telephone Encounter - Yoly Dale - 07/16/2024 2:26 PM CDT Teresa from [facility] authorization team states she faxed a form yesterday morning in regard to authorization for leqvio. Requesting call back with an update. Contact: documented in this encounter Plan of Treatment Upcoming Encounters Date Type Department Care Team (Latest Contact Info) Description 09/17/2024 10:55 AM CDT Hospital Encounter [facility] Electrophysiology Lab [address] [place] [address] Denys Capone MD [address] [address] Paroxysmal atrial fibrillation (HCC) 09/17/2024 10:55 AM CDT - 09/17/2024 2:50 PM CDT Surgery [facility] Electrophysiology Lab [address] [place] [address] Denys Capone MD [address] [address] ABLATION ATRIAL FIBRILLATION (A-FIB) VIA PULMONARY VEIN ISOLATION [id number] documented as of this encounter Visit Diagnoses Not on filedocumented in this encounter Care Teams Casing Finisher And Stuffer Relationship Specialty Start Date End Date Tiffany Ugarte MD PCP - General Mechanics Handyman 06/01/24 documented as of this encounter
--- OUTSIDE RECORDS SUMMARY | 2024-08-13 16:47 | XMS_ITS | Encounter Summary ---
Author Organization [facility] Address [address] [place] [address] Phone Care Team Providers Care Control Clerk Head Name Role Phone Administration, Veterans Primary Care Provide r Unavailable Encounter Details Date Type Department Care Team (Late st Contact Info) Description 08/02/2024 Results Follow-Up [facility] Cardiology [facility] Medical Office Building [address] [place] [phone] Denys Capone MD [address] [phone] Social History Tobacco Use Types Packs/Day Years [...] on file Legal 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 Electrophysiology Lab [address] [place] [address] Denys Capone MD [address] [facility] [address] [place] [address] Paroxysmal atrial fibrillation (HCC) 09/17/2024 10:55 AM CDT - 09/17/2024 2:[address] [facility] Electrophysiology Lab [address] [place] [address] Denys Capone MD [address] [address] ABLATION ATRIAL FIBRILLATION (A-FIB) VIA PULMONARY VEIN ISOLATION [address] documented as of this encounter Visit Diagnoses Not on filedocumented in this encounter Care Teams Control Clerk Head Relationship Specialty Start Date End Date Tiffany Ugarte MD PCP - General Air Brush Artist 06/01/24 documented as of this encounter
--- OUTSIDE RECORDS SUMMARY | 2024-08-13 16:48 | XMS_ITS | Clinical Summary ---
Author Organization [facility] Address [address] [place] [address] Care Team Providers Care Senior Reservoir Engineer Name Role Phone Concepcion Zeng NP Unavailable Unavailable Gregory Hamlin Unavailable [phone] Chris Hamlin NP Primary Care Provider Enzo Gutierrez MD Unavailable Allergies Active Allergy Reactions Criticality Noted Date Comments Statins Myalgias Low 05/24/2019 Doesn't remember reactions Info from 06/12/21 neuro O.V. Medications vitamin D2, ergocalciferol, 36050 UNITS capsule Take 1 capsule (50,000 Units [...] D-Hyaluron Acd (KARYN GLUCOSAMINE PLUS VIT D3) 1698-0089-1.65 MG-UNIT-MG Tab Take by mouth every morning. [...] gastritis without hemorrhage 1 06/09/2021 Supraventricular tachycardia (HHS/HCC) 2 Tussive syncope 06/12/2021 Overview (11/01/2021): 06/12/21: Attempted [...] problems. Assessment & Plan (06/12/2021 3:05 PM TEST TECHNICIAN): Plan: I have discussed the differential diagnosis [...] plan. Assessment & Plan (06/12/2021 3:04 PM TEST TECHNICIAN): Plan: Please see tussive syncope for primary diagnostic and treatment plan. Atypical atrial flutter ([facility]) 2019 prison current use of antiarrhythmic drug 08/2017 Hypertension 09/30/2017 Mixed hyperlipidemia 09/30/2017 prison current use of anticoagulant 8 Paroxysmal atrial fibrillation ([facility]) 09/29/2017 Family History Medical History Relation Comments neuroblastoma Brother Coronary artery disease Father Glaucoma Father Hypertension Father Lung Cancer Father Cancer Sister Relation Status Comments Brother (Age 55) Father Mother Alive Sister Alive Social History Tobacco Use Types Packs/Day Years Used Date Smoking Tobacco: Former Cigarettes 1 30 0 09/30/1981 - 10/01/2011 Smokeless Tobacco: Former Chew Quit: 2015 Tobacco Cessation:Counseling Given: Not Answered Alcohol Use Standard Drinks/Week Comments Yes 23.3 (1 standard dri nk = 0.6 oz pure alcohol) mix drink or beer -3 beer mixed 2-3 drinkd about 4-5 times week PHQ-2 Answer Date Recorded Patient Health Questionnaire-2 Score 0 04/08/2022 Sex and Gender Information Value Date Recorded Sex Assigned at Not on file Legal Sex Male 11:09 PM TEST TECHNICIAN Gender Identity Male 05/30/2021 2:32 PM TEST TECHNICIAN Sexual Orientation Not on file Occupation Industry Job Start Date Job End Date [employer] Not on file Not on file [...] Colonoscopy (10 Years) 1962 Annual Physical 1965 Hepatitis C 02/25/1980 DTaP, Tdap and Td Vaccines ( 1 - Tdap) 1981 Zoster Vaccines (1 of 2) 02/25/2012 RSV Immunization or 60+ Years (1 - Risk 60-74 years 1-dose series) 2022 COVID-19 Vaccine (2 - 2023-2 5 season) 2023 07/13/2020 PHQ-2 (Physician Lorena) 04/28/2024 Meningococcal B Vaccine Aged Out No l onger eligible based on patient's age to complete this topic Meningococcal Vaccine Aged Out No grant bettye eligible based on patient's age to complete this topic Pneumococcal Vaccine: Pediat rics (0 to 5 Years) and At-Risk Patients (6 to 49 Years) Aged Out No longer eligi ble based on patient's age to complete this topic RSV Immunizations Under 20 Months Aged Out No longer eligible based on patient's age to complete this topic Medical Devices Implanted Type Area Training Developer Device Identifier Shelf Expiration Date Model / Serial / Lot Leg Hardware Ankle Hardware Quattro Link Knotless Willow 4.5mm Peek Willow Implanted:Qty: 1 on 08/15/2022 by Randall Dejesus MD at [facility] Right: Shoulder [facility] [employer] 06/18/2027 [id number] / / [id number] Quattro Link Knotless Willow 4.5mm Peek Willow Implanted:Qty: 2 on 08/15/2022 by Randall Dejesus MD at [facility] Right: Shoulder [facility] [employer] 03/29/2027 [id number] / / [id number] Quattro Link Knotless Willow 4.5mm Peek Willow Implanted:Qty: 1 on 08/15/2022 by Randall Dejesus MD at [facility] Right: Shoulder [facility] [employer] [employer] 06/14/2027 [id number] / / [id number] Explanted Type Area Training Developer Device Identifier Shelf Expiration Date Model / Serial / Lot [facility] Medical Lock-Stitch Procedure Kit Explanted:Qty: 1 on 08/15/2022 by Randall Dejesus MD at [facility] Right: Shoulder [employer] 03/05/2025 CM-[id number] / / [id number] Broadband Tape Explanted:Qty: 1 on 08/15/2022 by Randall Dejesus MD at [facility] Right: Shoulder [employer] [id number] / / [id number] Insurance [employer] Advance Directives * Full Code (Latest Code Status on File) Date Activated Date Inactivated Comments 11/19/2019 12:28 PM 11/19/2019 5:55 PM * Full Code Date Activated Date Inactivated Comments 07/12/2019 2:23 PM 07/12/2019 7:31 PM * Full Code Date Activated Date Inactivated Comments 09/30/2017 1:13 PM 09/30/2017 7:10 PM Care Teams Senior Reservoir Engineer Relationship Specialty Start Date End Date Chris Hamlin NP [address], [place] [address] PCP - General NURSE PRACTITIONER 04/08/22 Concepcion Zeng NP Referring Physician CARDIOVASCULAR DISEASE 10/09/17 Gregory Hamlin PA PHYSICIAN ASSISTANT TO THE DIRECTOR 01/17/22 Enzo Gutierrez MD [facility] [address] [facility] [place] [address] Consulting Physician INTERVENTIONAL CARDIOLOGY 11/21/22
--- OUTSIDE RECORDS SUMMARY | 2024-08-13 16:48 | XMS_ITS | Encounter Summary ---
Author Organization [facility] Address [facility] [place] [address] Care Team Providers Care Residence Hall Director Name Role Phone New Referring, Provider Primary Care Provider Un available Concepcion Zeng NP Unavailable Unavailable Kevin Ontiveros MD Primary Care Provider [phone] Kevin Ontiveros MD Unavailable [phone] Gregory Hamlin Unavailable [phone] Chris Hamlin NP Primary Care Provider Arcadio Gilmore DO Unavailable [phone] Enzo Gutierrez MD Unavailable Encounter Details Date Type Department Care Team (Late st Contact Info) Description 07/12/2017 Abstract [facility] CONVERSION [address] [place] [address] , Generic Conversion, Social History Tobacco Use Types Packs/Day Years Used Date Smoking Tobacco: Never Assessed Sex and Gender Information Value Date Recorded Sex Assigned at Not on file Legal Sex Male 11:09 PM RN CARDIOLOGY Gender Identity Male 05/30/2021 2:32 PM RN CARDIOLOGY Sexual Orientation Not on file documented as [...] documented as of this encounter Care Teams Residence Hall Director Relationship Specialty Start Date End Date New Referring, Provider PCP - General UNKNOWN PHYSICIAN SPECIALTY 10/09/17 12/18/17 Kevin Ontiveros MD [address] [place] [address] PCP - General FAMILY PRACTICE 12/25/17 04/07/22 Kevin Ontiveros MD [address] [place] [address] PCP - [facility] PROVIDER FAMILY PRACTICE 12/25/17 04/07/22 Chris Hamlin NP [address] [place], [place] [address], [place] [address] PCP - General NURSE PRACTITIONER 04/08/22 Concepcion Zeng NP Referring Physician CARDIOVASCULAR DISEASE 10/09/17 Gregory Hamlin PA [address] [place] [address] PHYSICIAN LICENSED STAFF MFT 01/17/22 Arcadio Gilmore DO [address] [place], [place] [address], [place], [place] [address] Consulting Physician CARDIOVASCULAR DISEASE 05/30/22 Enzo Gutierrez MD [address] [place] [address] Consulting Physician INTERVENTIONAL CARDIOLOGY 11/21/22 documented as of this encounter
--- OUTSIDE RECORDS SUMMARY | 2024-08-13 16:48 | XMS_ITS | Encounter Summary ---
Author Organization [facility] Address [address] [place] [address] Care Team Providers Care Fundraising Sale Representative Name Role Phone Concepcion Zeng NP Unavailable Unavailable Gregory Hamlin Unavailable [phone] Chris Hamlin DOUGHMAKER Primary Care Provider Arcadio Gilmore DO Unavailable [phone] Enzo Gutierrez MD Unavailable Encounter Details Date Type Department Care Team (Late st Contact Info) Description 07/25/2022 Prep for Procedure [facility] Pre-Admission Testing [address] [place] [address] Nehemias Dejesus MD [address] [place] [address] Social History Tobacco Use Types [...] on file Legal Sex Male 11:09 PM MID LEVEL JAVA DEVELOPER Gender Identity Male 05/30/2021 2:32 PM MID LEVEL JAVA DEVELOPER Sexual Orientation Not on file Occupation Industry Job Start Date Job End Date retired [employer] Not on file Not on file Not on file documented as of this encounter Plan of Treatment Not on file documented as of this encounter Results * PARTIAL THROMBOPLASTIN TIME,PTT (08/13/2022 11:00 AM CDT) PTT 34.2 26.4 - 37.3 SEC 08/13/2022 11:21 AM CDT [facility] 08/13/2022 11:0 0 AM CDT us Nehemias Dejesus MD LABORATORY Final Resul t Performing Organization Address [facility] Co de Phone Number [facility] [address] [place] [address], * (ABNORMAL) PROTIME/INR, VENOUS (08/13/2022 11:00 AM CDT) PROTIME 13.7(H) 9.8 - 12.5 SEC 08/13/2022 11:21 AM CDT [facility] INR 1.2 08/13/2022 11:21 AM CDT [facility] Comment: TREATMENT OR PROPHYLAXIS AGAINST: THERAPEUTIC RANGE (INR): VENOUS THROMBOSIS 2.0-3.0 PULMONARY EMBOLUS 2.0-3.0 MECHANICAL PROSTHETIC VALVES 2.5-3.5 08/13/2022 11:0 0 AM CDT us Nehemias Dejesus MD LABORATORY Final Resul t Performing Organization Address [facility] Co de Phone Number [facility] [address] [place] [address], * (ABNORMAL) COMPREHENSIVE METABOLIC PANEL (08/13/2022 11:00 AM CDT) SODIUM S/P/B 139 136 - 145 MMOL/L 08/13/2022 11:35 AM CDT [facility] POTASSIUM S/P/B 4.1 3.6 - 5.0 MMOL/L 08/13/2022 11:35 AM [facility] CHLORIDE S/P/B 105 98 - 107 MMOL/L 08/13/2022 11:35 AM [facility] CO2 28.4 21.0 - 32.0 MMOL/L 08/13/2022 11:35 AM [facility] GLUCOSE 111(H) 70 - 99 MG/DL 08/13/2022 11:35 AM [facility] Comment: FASTING GLUCOSE 100 TO 125 MG/DL IS CONSISTENT WITH IMPAIRED FASTING GLUCOSE. FASTING GLUCOSE >125 MG/DL IS CONSISTENT WITH DIABETES. RANDOM GLUCOSE >200 MG/DL WITH HYPERGLYCEMIC SYMPTOMS IS CONSISTENT WITH DIABETES. PER ADA GUIDELINES BUN 20(H) 7 - 18 MG/DL 08/13/2022 11:35 AM [facility] CREATININE S/P/B 1.18 0.70 - 1.30 MG/DL 08/13/2022 11:35 AM [facility] CALCIUM S/P/B 8.7 8.5 - 10.1 MG/DL 08/13/2022 11:35 AM [facility] BILIRUBIN TOTAL S/P/B 0.6 0.2 - 1.0 MG/DL 08/13/2022 11:35 AM [facility] Comment: THIS ASSAY IS NOT RECOMMENDED FOR PATIENTS UNDERGOING TREATMENT WITH ELTROMBOPAG DUE TO THE POTENTIAL FOR FALSELY ELEVATED RESULTS. ALKALINE PHOSPHATASE S/P/B 130(H) 45 - 115 U/L 08/13/2022 11:35 AM [facility] AST 23 15 - 37 U/L 08/13/2022 11:35 AM [facility] ALT 41 16 - 61 U/L 08/13/2022 11:35 AM [facility] TOTAL PROTEIN S/P/B 6.6 6.4 - 8.2 G/DL 08/13/2022 11:35 AM CDT [facility] ALBUMIN S/P/B 3.7 3.4 - 5.0 G/DL 08/13/2022 11:35 AM CDT [facility] ANION GAP 5.6 5 - 15 MMOL/L 08/13/2022 11:35 AM CDT [facility] OSMOLALITY (CALC) 291 MOSM/KG 023 11:35 AM CDT [facility] GFR ESTIMATE 71(L) >90 ML/MIN/1. 73 M2 08/13/2022 11:35 AM CDT [facility] GFR NOTES GFR REFERENCE S: 08/13/2022 11:35 AM CDT [facility] Comment: THE ESTIMATED GFR [...] Dejesus MD LABORATORY Final Resul t [facility] [address] [place] [address], * (ABNORMAL) CBC W/DIFF AUTOMATED (08/13/2022 11:00 AM CDT) WBC 6.05 4.00 - 10.80 x10'3/uL 08/13/2022 11:10 AM CDT [facility] RBC 5.07 4.50 - 6.10 x10'6/uL 08/13/2022 11:10 AM T [facility] HGB 15.7 13.0 - 18.0 G/DL 08/13/2022 11:10 AM CDT [facility] HCT 46.3 37.0 - 52.0 % 08/13/2022 11:10 AM T [facility] MCV 91.3 78.0 - 100.0 FL 08/13/2022 11:10 AM T [facility] MCH 31.0 27.0 - 31.0 PG 08/13/2022 11:10 AM [facility] MCHC 33.9 33.0 - 36.0 G/DL 08/13/2022 11:10 AM [facility] RDW 12.6 11.5 - 14.5 % 08/13/2022 11:10 AM T [facility] PLT 185 150 - 350 x10'3/uL 08/13/2022 11:10 AM [facility] MPV 8.3 7.4 - 10.4 FL 08/13/2022 11:10 AM T [facility] DIFFERENTIAL TYPE AUTOMATED 08/13/2022 11:10 AM T [facility] SEG NEUTROPHILS 67.2 % 11:10 AM T [facility] LYMPHOCYTES 19.8 % 08/13/2022 11:10 AM T [facility] MONOCYTES 8.6 % 08/13/2022 11:10 AM T [facility] EOSINOPHILS 2.6 % 08/13/2022 11:10 AM T [facility] BASOPHILS 1.0 % 08/13/2022 11:10 AM CDT [facility] IMMATURE GRANS % 0.8 % 08/14/19 11:10 AM CDT [facility] NRBC 0.0 % 08/13/2022 11:10 AM CDT [facility] ABS. NEUTROPHILS 4.06 1.60 - 8.30 x10'3/uL 08/13/2022 11:10 AM CDT [facility] ABS. LYMPHOCYTES 1.20 0.80 - 4.70 x10'3/uL 08/13/2022 11:10 AM CDT [facility] ABS. MONOCYTES 0.52 0.00 - 1.50 x10'3/uL 08/13/2022 11:10 AM CDT [facility] ABS. EOSINOPHILS 0.16 0.00 - 0.40 x10'3/uL 08/13/2022 11:10 AM CDT [facility] ABS. BASOPHILS 0.06 0.00 - 0.20 x10'3/uL 08/13/2022 11:10 AM CDT [facility] ABS. IMMATURE GRANULOCYTES 0.05(H) 0.00 - 0.03 x10'3/uL 08/13/2022 11:10 AM CDT [facility] ABS. NUCLEATED RBC'S 0.00 0.00 x10'3/uL 08/13/2022 11:10 AM T [facility] 08/13/2022 11:0 0 AM CDT us Nehemias Dejesus MD LABORATORY Final Resul t [facility] [address] [place] [employer] [place] [address], * XR CHEST PA+LAT (07/29/2022 2:09 PM [...] Total Score: 0 06/12/19 22 2:09 PM MID LEVEL JAVA DEVELOPER documented as of this encounter Care Teams Fundraising Sale Representative Relationship Specialty Start Date End Date Chris Hamlin NP [address] [place] [address] [address], [place] [address] PCP - General NURSE PRACTITIONER 04/08/22 Concepcion Zeng NP Referring Physician CARDIOVASCULAR DISEASE 10/09/17 Gregory Hamlin PA PHYSICIAN HARNESS PREPARER 01/17/22 Arcadio Gilmore DO [address] [place] [address] E, [place] [address] Consulting Physician CARDIOVASCULAR DISEASE 05/30/22 Enzo Gutierrez MD [facility] [address] [facility] [place] [address] Consulting Physician INTERVENTIONAL CARDIOLOGY 11/21/22 documented as of this encounter
--- OUTSIDE RECORDS SUMMARY | 2024-08-13 16:48 | XMS_ITS ---
Author Name [facility] Organization [facility] [place] Address [address] [place] [address] Care Team Providers Care Production Line Mechanic Name Role Phone FARIBA CHEUNG Primary Care Provider Unavailabl e Selected Encounter This section includes the information on record at [place] for the Encounter. Date/Time Encounter Type Encounter Description Reason Provider Source Nov 26, 2023 09:06 AM Outpatient Encounter GENERAL INTERNAL MEDICINE VANITA ESCAMILLA E Encounter Template Text not used by [place] Plan of Treatment: Future Appointments (+ 6 months) and Future Tests (+/- 45 days) The Plan of Treatment section includes future care activities for the patient from all [place] treatmentfacilities. This section includes future appointments and future orders which are active, pending or scheduled. Future Appointments This section includes appointments that were scheduled to occur 6 months from the date of the Encounter, up to a maximum of 20 appointments. The data comes from all [place] treatment facilities. Appointment Date/Time Appointment Type Appointme nt Facility Name Dec 10, 2023 11:00 AM AMBULATORY - SURGERY [facility] Dec 15, 2023 02:00 PM AMBULATORY - MEDICINE [facility] Jan 27, 2024 03:00 PM AMBULATORY - PSYCHIATRY [facility] Feb 03, 2024 01:30 PM AMBULATORY - NONE [facility] Mar 30, 2024 01:50 PM AMBULATORY - NONE [facility] Apr 14, 2024 01:30 PM AMBULATORY - NONE [facility] May 11, 2024 01:30 PM AMBULATORY - NONE [facility] May 27, 2024 02:00 PM AMBULATORY - MEDICINE [facility] May 27, 2024 02:40 PM AMBULATORY - NONE [facility] Advance Directives: All historical and current Section Date Range: From patient's date of to the date document was created. This section includes ALL of a patient's completed or amended [place] Advance and Rescinded Directives. The entries below indicate that a directive exists for the patient, but an actual copy is not included with this document. The data comes from all [place] facilities. Date Advance Directives Provider Source Dec 31, 2023 ADVANCE DIRECTIVE DISCUSSION Martin MON[facility] Encounter Notes: All associated encounter notes [...] Submitted to Centralized Call Center Notification ID: [id number] [facility] Referral #: [id number] Clinical Review [facility] Name: Hospital: [facility] Address: City: [place] State: [place] Zip Code: Phone : Community Facility Point of Contact: Name: Phone: Chief complaint: Syncope and collapse Primary Diagnosis: Disposition Admitted Route of Admission: Date of Admission: Oct Admitting Diagnosis: ACUTE CHEST PAIN Community Care Provider: Confirm Level of Care: Records sent to [facility] for expedited upload. [facility] alerted via ECR Tool for eligibility review. No further records available. Alerting PCP team to this note for continuity of care. Records r/t this episode of care may be found in JLV/EPIC; also sent to [facility] for scanning. Hospital Course: Acute coronary syndrome [...] and Eliquis Hypertension Hyperlipidemia Assessment: Labs from [place] on 08/05/2023 with A1c 5.5, lipid panel: [...] Provider Department Center 12/10/2023 1:20 PM Eusebio Freeman MD PMR [facility] 01/07/2024 2:45 PM Teofilo Quispe PA [facility] Specialty /craig/ SHYANN ESCAMILLA BSN RN REGISTERED NURSE Signed: 11/26/2023 09:16 12/05/2023 ADDENDUM STATUS: COMPLETED HSRM Referral ID [id number] Status Notify - Approved for [id number]. /es/ Sheela Sow, RN, BSN REGISTERED NURSE Signed: 12/05/2023 10:35 SHYANN ESCAMILLA [facility]
--- OUTSIDE RECORDS SUMMARY | 2024-08-13 16:48 | XMS_ITS | Encounter Summary ---
Author Name [facility] [place] [facility] [place] Address [address] [place] [address] Care Team Providers Care Adult Crossing Guard Name Role Phone FARIBA CHEUNG Primary Care Provider Unavailabl e Selected Encounter This section includes the information on record at [place] for the Encounter. Date/Time Encounter Type Encounter Description Reason Provider Source Jun 25, 2024 08:06 AM Outpatient Encounter GENERAL INTERNAL MEDICINE VANITA ESCAMILLA E Encounter Template Text not used by [place] Plan of Treatment: Future Appointments (+ 6 months) and Future Tests (+/- 45 days) The Plan of Treatment section includes future care activities for the patient from all [place] treatmentfacilities. This section includes future appointments and future orders which are active, pending or scheduled. Future Appointments This section includes appointments that were scheduled to occur 6 months from the date of the Encounter, up to a maximum of 20 appointments. The data comes from all [place] treatment facilities. Appointment Date/Time Appointment Type Appointme nt Facility Name Jun 29, 2024 03:00 PM AMBULATORY - NONE [facility] Jun 29, 2024 03:15 PM AMBULATORY - NONE [facility] Oct 05, 2024 01:00 PM AMBULATORY - NONE [facility] Oct 19, 2024 02:00 PM AMBULATORY - NONE [facility] Lab Results: +/- 30 days of the encounter This section includes the Chemistry and Hematology Lab Results on record with [place] for the patient. Radiology Reports and Pathology Reports are provided separately, in subsequent sections. Lab Results This section contains the Chemistry/Hematology Results that were resulted 30 days before or 30 daysafter the date of the Encounter. Date/Time Source Result Type Result - Unit Interpretation Reference Range Specimen Type Comment May 27, 2024 02:24 PM [facility] PTH INTCT PLASMA Specimen Type: PLASMA No comment entered. Ordering Provider: CLAUDIA UP Report Released Date/Time: May 11, 2024 04:06 PM Reporting Lab: [address] [address] Performing Lab: [facility] [address] [place] [id number] PTH INTCT 83.4 pg/mL H 18.4-80.1 May 27, 2024 02:24 PM [facility] VITAMIN D 25-HYDROXY SERUM Spec imen Type: SERUM Comment: Deficiency <20, Insufficiency 20-30, Sufficiency 30-100, Toxicity >100 ng/mL Ordering Provider: FARIBA CHEUNG Report Released Date/Time: Apr 23, 2024 08:34 AM Reporting Lab: [address] [address] Performing Lab: [address] [address] VITAMIN D 25-HYDROXY 51.70 ng/mL 30-100 May 27, 2024 02:24 PM [facility] URINE ALBUMIN/CREAT (RAND URINE) URINE Specim en Type: URINE No comment entered. Ordering Provider: NANCY UP Report Released Date/Time: May 11, 2024 04:06 PM Reporting Lab: [address] [id number] Performing Lab: [address] [address] URINE ALBUMIN(RAND URINE) 1.5 mg/dL <2.0 CREAT(RNDM URINE) 210.70 mg/dL 40-278 CREAT RATIO (RNDM URINE) 7 mg/g <30 May 27, 2024 02:24 PM [facility] COMPREHENSIVE PNL PLASMA Specime n Type: PLASMA Comment: eGFR was calculated using the CKD-EPI Creatinine (2020) equation. Ordering Provider: FARIBA CHEUNG Report Released Date/Time: Apr 23, 2024 08:34 AM Reporting Lab: [address] [address] Performing Lab: [address] [address] ANION GAP 12 mmol/L 5-15 EGFR 75 mL/min/{1.73_m2} >= 60 GLUCOSE 105 mg/dL H 70-99 [...] ALL of a patient's completed or amended [place] Advance and Rescinded Directives. The entries below indicate that a directive exists for the patient, but an actual copy is not included with this document. The data comes from all [place] facilities. Date Advance Directives Provider Source Dec 31, 2023 ADVANCE DIRECTIVE DISCUSSION [facility] Encounter Notes: All associated encounter notes This section contains the clinical notes associated to the Encounter. Date/Time Encounter Note(s) Provider Source Jun 22, 2024 08:06 AM NONVA NOTE: LOCAL TITLE: COMMUNITY CARE-SLICK SELF PRESENTING CARE COORD PLAN STANDARD TITLE: NONVA NOTE DATE OF NOTE: JUN 22, 2024@08:06 ENTRY DATE: JUN 25, 2024@08:06:19 AUTHOR: GEORGINA,July COSIGNER: URGENCY: STATUS: COMPLETED COMMUNITY CARE-SLICK SELF PRESENTING CARE COORD PLAN [address] Has ADDENDA Emergency Notification Intake Date Presenting to the Facility: May Method of Contact: Notified from ECR worklist Notification ID: [id number] [facility] Referral #: [id number] [facility] Name: Hospital: [facility] Address: [facility] [address] City: [place] State: [place] Zip Code: [address] [facility] Point of Contact: Name: Nicole Braun Chief complaint: Arrhythmias/Palpitations Primary Diagnosis: Disposition Unknown at time of intake note entry Faxed [facility] records [facility]. [facility] ([id number]) is PCP for this . Primary Care Provider: FARIBA CHEUNG Chief Engineering Division: BETSY REGALADO /craig/ GINNY ERICKSON ADVANCED STRATEGIC ACCOUNTS MANAGER Signed: 06/25/2024 08:14 06/28/2024 ADDENDUM STATUS: COMPLETED Records this episode of care sent to [facility] for scanning. /craig/ DELLA RICE STRATEGIC ACCOUNTS MANAGER Signed: 06/28/2024 10:56 GINNY ERICKSON [facility]
--- OUTSIDE RECORDS SUMMARY | 2024-08-13 16:48 | XMS_ITS | Encounter Summary ---
Author Name [facility] [place] [facility] [place] Address [address] [place] [address] Care Team Providers Care Willow Machine Operator Name Role Phone JONATANFARIBA Castillo Primary Care Provider Unavailabl e Selected Encounter This section includes the information on record at NH for the Encounter. Date/Time Encounter Type Encounter Description Reason Pro vider Source Oct 29, 2023 11:00 AM Outpatient Encounter COMMUNITY CARE CONSULT IHE Encounter Template Text not used by [place] Plan of Treatment: Future Appointments (+ 6 months) and Future Tests (+/- 45 days) The Plan of Treatment section includes future care activities for the patient from all [place] treatmentfacilities. This section includes future appointments and future orders which are active, pending or scheduled. Future Appointments This section includes appointments that were scheduled to occur 6 months from the date of the Encounter, up to a maximum of 20 appointments. The data comes from all [place] treatment facilities. Appointment Date/Time Appointment Type Appointme nt Facility Name Dec 10, 2023 11:00 AM AMBULATORY - SURGERY [facility] Dec 15, 2023 02:00 PM AMBULATORY - MEDICINE [facility] Jan 27, 2024 03:00 PM AMBULATORY - PSYCHIATRY [facility] Feb 03, 2024 01:30 PM AMBULATORY - NONE [facility] Mar 30, 2024 01:50 PM AMBULATORY - NONE [facility] Apr 14, 2024 01:30 PM AMBULATORY - NONE [facility] Social History: Smoking Status (Most current) and Tobacco Use (All prior to encounter date) This section includes the most current, and the historical, smoking and tobacco- related health factors from the [place] facility where the Encounter took place. Current Smoking Status This section includes the most current smoking, or tobacco-related health factor, from the [place] facility where the Encounter took place. Date/Time Current Smoking Status Comment Kyra kumar Nov 27, 2018 01:03 PM NH-TOBACCO QUIT 1 TO < 5 YRS [facility] Tobacco Use History This section includes a history of the smoking, or tobacco-related health factors, that were collected on or before the date of the Encounter. The data comes from the [place] facility where the Encounter took place. Date/Time Smoking Status/Tobacco Use Comment F aciraida Nov 27, 2018 01:03 PM NH-TOBACCO QUIT 1 TO < 5 YRS [facility] Advance Directives: All historical and current Section Date Range: From patient's date of to the date document was created. This section includes ALL of a patient's completed or amended [place] Advance and Rescinded Directives. The entries below indicate that a directive exists for the patient, but an actual copy is not included with this document. The data comes from all [place] facilities. Date Advance Directives Provider Source Dec 31, 2023 ADVANCE DIRECTIVE DISCUSSION [facility] Encounter Notes: All associated encounter notes [...] LALI SUTHERLAND DO NOT REPORT TO A NH LOCATION OF CARE You have an appointment with a community provider. Your appointment details are: Appointment date & time: Oct@11:00 Community Provider or Facility: [facility] Community Provider Location: [facility] Orthopedics @ [facility] [address] [place] [address] ([place]ara) [phone] Community Provider Type of Specialty: Ortho General Referral number: [id number] Referral valid: Apr to Mar You can find your authorization information online at [email or web address] If you have a co-pay for your care or prescriptions, [place] will send you a bill in the mail. Do not pay co-pays to community providers. If you get a bill or are asked for a co-pay, contact [facility] at [phone]. In case of emergency call 911 or go to the nearest emergency department. You or your emergency care provider can contact [place] to report emergency treatment. You have 72 hours to report emergency care to NH. Call (TTY:711) or visit https://emergencycarereporting.[facility].[place].gov/ If you have an immediate need for prescription medication after your community care visit, you may be eligible for up to a 14-day supply, filled at a participating [facility] ([facility]) pharmacy. You can find an in-network pharmacy online at: www.[place]/find-locations/ For immediate prescription, provide an eligible pharmacy the following information: BIN: [id number] PCN: [id number] Group: [id number] The prescribed medications must be related to the services authorized on the referral and must be included in the [place] National Formulary. If you do not need medication immediately and for medication supply greater than 14-days, ask the community provider to send your prescription to the pharmacy at [facility] and [place] will mail it to you. To reach the [facility] pharmacy call and press 1. If you [...] the Beneficiary Travel Self Service System (BTSSS)at access.[place].gov - For assistance with your travel pay, you may contact [employer] at [phone]. [facility]
--- OUTSIDE RECORDS SUMMARY | 2024-08-13 16:48 | XMS_ITS ---
Author Name Department of Vetera Affairs ([place]) Organization Department of Vetera [facility] ([place]) Address [address] [place] [address] Care Team Providers Care Earthmoving Plant Operator Name Role Phone JONATANVIVIENNEFARIBA Primary Care Provider Unavailabl e Selected Encounter This section includes the information on record at [place] for the Encounter. Date/Time Encounter Type Encounter Description Reason Provider Source May 11, 2024 01:30 PM OFFICE O/P EST MOD 30 MIN RENAL/NEPHROL(EXC EPT DIALYSIS) ICD-10-CM N17.9 Acute kidney failure, unspecified Crystal UP Isa Encounter Template Text not used by [place] Assessments - Encounter Diagnoses This section includes the primary and secondary diagnoses documented for the Encounter. Date/Time Primary/Secondary Diagnosis Diagnosis Name Provider Source May 11, 2024 04:02 PM PRIMARY Acute kidney failure, [facility] May 11, 2024 04:02 PM SECONDARY Essential (primary) hypertension [facility] May 11, 2024 04:02 PM SECONDARY Human immunodeficiency virus [HIV] disease [facility] May 11, 2024 04:02 PM SECONDARY Vitamin deficiency, unspecified [facility] Plan of Treatment: Future Appointments (+ 6 months) and Future Tests (+/- 45 days) The Plan of Treatment section includes future care activities for the patient from all [place] treatmentfacilities. This section includes future appointments and future orders which are active, pending or scheduled. Future Appointments This section includes appointments that were scheduled to occur 6 months from the date of the Encounter, up to a maximum of 20 appointments. The data comes from all [place] treatment facilities. Appointment Date/Time Appointment Type Appointme nt Facility Name May 27, 2024 02:00 PM AMBULATORY - MEDICINE [facility] May 27, 2024 02:40 PM AMBULATORY - NONE [facility] Jun 10, 2024 01:05 PM AMBULATORY - NONE [facility] Jun 10, 2024 01:20 PM AMBULATORY - NONE [facility] Jun 29, 2024 03:00 PM AMBULATORY - NONE [facility] Jun 29, 2024 03:15 PM AMBULATORY - NONE [facility] Oct 05, 2024 01:00 PM AMBULATORY - NONE [facility] Oct 19, 2024 02:00 PM AMBULATORY - NONE [facility] Lab Results: +/- 30 days of the encounter This section includes the Chemistry and Hematology Lab Results on record with [place] for the patient. Radiology Reports and Pathology Reports are provided separately, in subsequent sections. Lab Results This section contains the Chemistry/Hematology Results that were resulted 30 days before or 30 daysafter the date of the Encounter. Date/Time Source Result Type Result - Unit Interpretation Reference Range Specimen Type Comment May 27, 2024 02:24 PM [facility] PTH INTCT PLASMA Specimen Type: PLASMA No comment entered. Ordering Provider: CLAUDIA UP Report Released Date/Time: May 11, 2024 04:06 PM Reporting Lab: [facility] [address] [facility] [address] Performing Lab: [facility] [address] [place] [phone] PTH INTCT 83.4 pg/mL H 18.4-80.1 May 27, 2024 02:24 PM [facility] VITAMIN D 25-HYDROXY SERUM Spec imen Type: SERUM Comment: Deficiency <20, Insufficiency 20-30, Sufficiency 30-100, Toxicity >100 ng/mL Ordering Provider: FARIBA CHEUNG Report Released Date/Time: Apr 23, 2024 08:34 AM Reporting Lab: [facility] [address] [facility] [address] Performing Lab: [facility] [address] [facility] [facility] [address] VITAMIN D 25-HYDROXY 51.70 ng/mL 30-100 May 27, 2024 02:24 PM [facility] URINE ALBUMIN/CREAT (RAND URINE) URINE Specim en Type: URINE No comment entered. Ordering Provider: NANCY UP Report Released Date/Time: May 11, 2024 04:06 PM Reporting Lab: [address] [address] Performing Lab: [address] [address] URINE ALBUMIN(RAND URINE) 1.5 mg/dL <2.0 CREAT(RNDM URINE) 210.70 mg/dL 40-278 CREAT RATIO (RNDM URINE) 7 mg/g <30 May 27, 2024 02:24 PM [facility] COMPREHENSIVE PNL PLASMA Specime n Type: PLASMA Comment: eGFR was calculated using the CKD-EPI Creatinine (2020) equation. Ordering Provider: FARIBA CHEUNG Report Released Date/Time: Apr 23, 2024 08:34 AM Reporting Lab: [address] [address] Performing Lab: [address] [address] ANION GAP 12 mmol/L 5-15 EGFR 75 [...] Source May 11, 2024 02:22 PM 168/96 [facility] May 11, 2024 02:19 PM 97.5 70 153/99 20 94 6 75 268 34 [facility] Advance Directives: All historical and current Section Date Range: From patient's date of to the date document was created. This section includes ALL of a patient's completed or amended [place] Advance and Rescinded Directives. The entries below indicate that a directive exists for the patient, but an actual copy is not included with this document. The data comes from all [place] facilities. Date Advance Directives Provider Source Dec 31, 2023 ADVANCE DIRECTIVE DISCUSSION Martin MONGE [facility] Encounter Notes: All associated encounter [...] Acknowledged By: 05/31/2024 11:31 /es/ SILVIA NUGENT PRODUCTION POTTER --- Original Document --- 05/28/24 PROVIDER/PATIENT RESULTS LETTER (P): LALI SUTHERLAND MAY 28, [address] [place], [place] [address] The following tests have been reviewed and show: Please share the labs with your other providers Blood tests are stable. Feel free to call and discuss Dr. Cheung Comments: Recommendations: If you have any questions please call [facility], at and ask for your Primary Care Provider or your Primary Care Team. If you have a private physician and wish to have copies of your medical records sent to your physician, please send a written request to: ASIF [id number]), [facility], [address] [place] [address] For [place] use only: mail letter, FARIBA CHEUNG [facility] May 28, 2024 02:11 PM PRIMARY CARE NOTE: LOCAL TITLE: PROVIDER/PATIENT RESULTS LETTER (P) STANDARD TITLE: PRIMARY CARE NOTE DATE OF NOTE: MAY 28, 2024@14:11 ENTRY DATE: MAY 28, 2024@14:11:16 AUTHOR: FARIBA CHEUNG EXP COSIGNER: URGENCY: STATUS: COMPLETED PROVIDER/PATIENT RESULTS LETTER (P) Has ADDENDA DEPARTMENT OF [facility] ([id number]) [facility] [place] [address] LALI SUTHERLAND MAY 28, 2024 [facility] [address] [place], [place] [address] The following tests have been reviewed and show: Please share the labs with your other providers Blood tests are stable. Feel free to call and discuss Dr. Cheung Comments: Recommendations: If you have any questions please call [facility], at and ask for your Primary Care Provider or your Primary Care Team. If you have a private physician and wish to have copies of your medical records sent to your physician, please send a written request to: ASIF ([id number]), [facility], [address] [place] [address] For [place] use only: mail letter, 05/28/2024 ADDENDUM STATUS: COMPLETED Please mail him this letter along with copy of recent labs /es/ FARIBA CHEUNG MD Signed: 05/28/2024 14:13 Receipt Acknowledged By: * AWAITING SIGNATURE * SILVIA NUGENT Sincerely, FARIBA CHEUNG MD MAY 28, 2024 14:18 [facility] FARIBA CHEUNG [facility] May 11, 2024 02:59 PM INTERNAL MEDICINE NOTE: LOCAL TITLE: MEDICINE/RENAL STANDARD TITLE: INTERNAL MEDICINE NOTE DATE OF NOTE: MAY 11, 2024@14:59 ENTRY DATE: MAY 11, 2024@14:59:37 AUTHOR: KRISTIN UP EXP COSIGNER: URGENCY: STATUS: COMPLETED MEDICINE/RENAL Has ADDENDA [...] saw neph, pth 101, got calcitriol 0.25/d [place] labs creatinine 1.3 was 1.2 ua 10protein [...] FACILITY ALLERGY/ADR -------- [facility]STATIN [facility] ATORVA[facility] MRR1 - Med Reconciliation INCLUDED IN THIS LIST: Alphabetical list of active outpatient prescriptions dispensed from this [place] (local) and dispensed from another VA or [...] the patient into personal health records (i.e. [facility]) are NOT included in this list. Non-VA medications documented outside this [place], remote inpatient orders (regardless of status) and remote clinic medications are NOT included in this list. The patient and provider must always discuss medications the patient is taking, regardless of where the medication was dispensed or obtained. Non-VA ACETAMINOPHEN 500MG TAB TAKE TWO TABLETS BY MOUTH THREE TIMES A DAY NEEDED Patient wants to buy from non-[place] pharmacy OUTPT APIXABAN 5MG TAB (Status = Discontinued) TAKE ONE TABLET BY MOUTH TWICE A DAY Rx# [id number] Last Released: 01/01/24 Qty/Days Supply: 180 Rx Expiration Date: 04/20/24 Refills Remainin OUTPT APIXABAN 5MG TAB (Status = Active) TAKE ONE TABLET BY MOUTH TWICE A DAY Rx# [id number] Last Released: 03/29/24 Qty/Days Supply: 180 Rx Expiration Date: 03/13/25 Refills Remainin Non-VA ASPIRIN 81MG EC TAB TAKE ONE TABLET BY MOUTH EVERY DAY Patient wants to buy from non-[place] pharmacy OUTPT ASPIRIN 81MG EC TAB (Status = Active) TAKE ONE TABLET BY MOUTH EVERY DAY Rx# [id number] Last Released: 04/26/24 Qty/Days Supply: 120/90 Rx Expiration Date: 04/22/25 Refills Remainin Indication: TO PREVENT A STROKE OR HEART ATTACK OUTPT ATORVASTATIN CALCIUM 80MG TAB (Status = Active) TAKE ONE TABLET BY MOUTH AT BEDTIME CALL YOUR PROVIDER IF YOU HAVE MUSCLE PAIN, TENDERNESS OR WEAKNESS Rx# [id number] Last Released: 04/26/24 Qty/Days Supply: 9090 Rx Expiration Date: 04/22/25 Refills Remainin Indication: FOR CHOLESTEROL OUTPT BIC 50/EMT 200/TEN 25 (EQV-BIKTARVY) TAB (Status = Discontinued) TAKE 1 TABLET BY MOUTH EVERY DAY FOR INFECTION DO NOT MIX WITH MINERALS/MVI FOR ADEQUATE ABSORPTION. Rx# [id number] Last Released: 12/25/23 Qty/Days Supply: 90 Rx Expiration Date: 08/08/24 Refills Remainin OUTPT BIC 50/EMT 200/TEN 25 (EQV-BIKTARVY) TAB (Status = Active) TAKE 1 TABLET BY MOUTH EVERY DAY FOR INFECTION DO NOT MIX WITH MINERALS/MVI FOR ADEQUATE ABSORPTION. Rx# [id number] Last Released: 03/04/24 Qty/Days Supply: 90 Rx Expiration Date: 02/25/25 Refills Remainin OUTPT BUSPIRONE HCL 5MG TAB (Status = Active) TAKE ONE TABLET BY MOUTH TWICE A DAY FOR ANXIETY Rx# [id number] Last Released: 12/30/23 Qty/Days Supply: Rx Expiration Date: 09/12/24 Refills Remainin Indication: FOR ANXIETY OUTPT CALCITRIOL 0.25MCG CAP (Status = Active) TAKE ONE CAPSULE BY MOUTH DAILY Rx# [id number] Last Released: 04/26/24 Qty/Days Supply: Rx Expiration Date: 04/22/25 Refills Remainin Indication: FOR BONES OUTPT DILTIAZEM (EQV-TIAZAC AB4) 240MG 24HR CP (Status = Active) TAKE ONE CAPSULE BY MOUTH EVERY DAY FOR BLOOD PRESSURE/HEART Rx# [id number] Last Released: 08/30/23 Qty/Days Supply: Rx Expiration Date: 05/15/24 Refills Remainin OUTPT ERGOCALCIF 1,250MCG (D2-50,000UNIT) CAP (Status = Discontinued) TAKE ONE CAPSULE BY MOUTH ONCE WEEKLY ON FRIDAY FOR VITAMIN D- SUPPLEMENT Rx# [id number] Last Released: 03/03/24 Qty/Days Supply: Rx Expiration Date: 12/26/24 Refills Remainin OUTPT FOLIC ACID 1MG TAB (Status = Active) TAKE ONE TABLET BY MOUTH DAILY Rx# [id number] Last Released: 04/26/24 Qty/Days Supply: Rx Expiration Date: 04/22/25 Refills Remainin Indication: FOR ANEMIA OUTPT METOPROLOL SUCCINATE 50MG SA TAB (Status = Active) TAKE ONE TABLET BY MOUTH NIGHTLY FOR BLOOD PRESSURE Rx# [id number] Last Released: 03/03/24 Qty/Days Supply: Rx Expiration Date: 12/18/24 Refills Remainin Indication: FOR BLOOD PRESSURE OUTPT MULTIVITAMIN/MINERALS THERAPEUT CAP/TAB (Status = Active) TAKE 1 CAP/TAB BY MOUTH DAILY Rx# [id number] Last Released: 04/26/24 Qty/Days Supply: Rx Expiration Date: 04/22/25 Refills Remainin Indication: FOR LACK IN VITAMINS OUTPT PANTOPRAZOLE NA 40MG EC TAB (Status = Active) TAKE ONE TABLET BY MOUTH EVERY DAY Rx# [id number] Last Released: 12/19/23 Qty/Days Supply: Rx Expiration Date: 12/18/24 Refills Remainin OUTPT POTASSIUM CL 20MEQ SA TAB (DISPERSIBLE) (Status = ) TAKE ONE TABLET BY MOUTH DAILY FOR POTASSIUM SUPPLEMENT Rx# [id number] Last Released: 03/03/24 Qty/Days Supply: Rx Expiration Date: 05/08/24 Refills Remainin OUTPT ROSUVASTATIN CA 20MG TAB (Status = Discontinued) TAKE ONE TABLET BY MOUTH EVERY DAY CALL YOUR PROVIDER IF YOU HAVE MUSCLE PAIN, TENDERNESS OR WEAKNESS Rx# [id number] Last Released: 03/22/24 Qty/Days Supply: Rx Expiration Date: 03/19/25 Refills Remainin OUTPT TAMSULOSIN HCL 0.4MG CAP (Status = Active) TAKE ONE CAPSULE BY MOUTH EVERY EVENING TAKE 30 MINUTES AFTER A MEAL Rx# [id number] Last Released: 12/22/23 Qty/Days Supply: Rx Expiration Date: 10/01/24 Refills Remainin Indication: FOR PROSTATE OUTPT THIAMINE 100MG TAB (Status = Active) TAKE ONE TABLET BY MOUTH DAILY Rx# [id number] Last Released: 04/26/24 Qty/Days Supply: Rx Expiration Date: 04/22/25 Refills Remainin Indication: FOR VITAMIN SUPPLEMENT OUTPT VENLAFAXINE HCL 150MG 24HR SA CAP (Status = Active) TAKE ONE CAPSULE BY MOUTH DAILY FOR DEPRESSION WITH FOOD - MOOD Rx# [id number] Last Released: 03/11/24 Qty/Days Supply: Rx Expiration [...] reconciled medications was provided to the /caregiver. /danny UP MD Staff Physician Signed: 05/11/2024 16:02 05/31/2024 ADDENDUM STATUS: COMPLETED lauren, resolving creat 1.1, egfr 75 vit d deficiency on calcitriol 0.25/d, from pvt neph pth 83, ca 9.9, phos 4.6, vit d 52 ok now, but might need dose adjust /danny UP MD Staff Physician Signed: 05/31/2024 17:16 [facility] May 11, 2024 02:08 PM NURSING NOTE: [...] acknowledge correct, not taking folic acid PCP: [place] SPECIALIST:legal process specialist Dr Up [place] Infectious disease Dr Spangler [place] Knitting Machine Tender - seeing next month RACHELLE-BLOOD PRESSURE >140/90: BP: 153/99 (05/11/2024 14:19) Did you take your Blood Pressure Medication today? YES, Patient did take prescribed Blood Pressure Medication/s today. Have you consumed any caffeine within the last 30 minutes? YES Have you used any nicotine and/or nicotine products within the last 30 minutes? NO Blood Pressure rechecked: 168/96 /danny DEAL LPN Signed: 05/11/2024 14:25 MAYRA DEAL [facility]
--- OUTSIDE RECORDS SUMMARY | 2024-08-13 16:48 | XMS_ITS | Encounter Summary ---
Author Name Department of Vetera ns Affairs [place]) Organization [facility] [facility] [place] Address [address] [place] [address] Care Team Providers Care Account Leader Name Role Phone FARIBA CHEUNG Primary Care Provider Unavailabl e Selected Encounter This section includes the information on record at [place] for the Encounter. Date/Time Encounter Type Encounter Description Reason Provider Source Dec 10, 2023 11:00 AM OFF/OP CONSLTJ NEW/EST HI 55 CARDIOLOGY ICD-10-CM Z01.810 Encounter for preprocedural cardiovascular examination ANTONI SANFORD Isa Encounter Template Text not used by [place] Assessments - Encounter Diagnoses This section includes the primary and secondary diagnoses documented for the Encounter. Date/Time Primary/Secondary Diagnosis Diagnosis Name Provider Source Dec 10, 2023 12:09 PM PRIMARY Encounter for preprocedural cardiovascular examination ANTONI SANFORD [facility] Dec 10, 2023 12:09 PM SECONDARY Chronic kidney disease, unspecified REBECCA-ZAHEERD ALAA Isa [facility] Dec 10, 2023 12:09 PM SECONDARY Essential (primary) hypertension SHRUTHI SANFORDA Isa [facility] Dec 10, 2023 12:09 PM SECONDARY Human immunodeficiency virus [HIV] disease JUVENAL ALAA Isa [facility] [facility] Dec 10, 2023 12:09 PM SECONDARY Hyperlipidemia, unspecified JUVENAL ALAA E [facility] Dec 10, 2023 12:09 PM SECONDARY Paroxysmal atrial fibrillation SHRUTHI SANFORDA Isa [facility] Plan of Treatment: Future Appointments (+ 6 months) and Future Tests (+/- 45 days) The Plan of Treatment section includes future care activities for the patient [facility] [place] [facility] This section includes future appointments and future orders which are active, pending or scheduled. Future Appointments This section includes appointments that were scheduled to occur 6 months from the date of the Encounter, up to a maximum of 20 appointments. The data comes from all [facility] facilities. Appointment Date/Time Appointment Type Appointme nt Facility Name Dec 15, 2023 02:00 PM AMBULATORY - MEDICINE [facility] Jan 27, 2024 03:00 PM AMBULATORY - PSYCHIATRY [facility] Feb 03, 2024 01:30 PM AMBULATORY - NONE [facility] Mar 30, 2024 01:50 PM AMBULATORY - NONE [facility] Apr 14, 2024 01:30 PM AMBULATORY - NONE [facility] May 11, 2024 01:30 PM AMBULATORY - NONE [facility] May 27, 2024 02:00 PM AMBULATORY - MEDICINE [facility] May 27, 2024 02:40 PM AMBULATORY - NONE [facility] Jun 10, 2024 01:05 PM AMBULATORY - NONE [facility] Jun 10, 2024 01:20 PM AMBULATORY - NONE [facility] Vital Signs: All taken on the encounter date This section contains inpatient and outpatient Vital Signs collected on the date of the Encounter. Date/Time Temperature Pulse Blood Pressure Respiratory Rate SP02 Pain Height Weight Body Mass Index Source Dec 10, 2023 11:46 AM 137/100 [facility] Dec 10, 2023 11:45 AM 97.8 76 146/99 16 94 274 34 [facility] Social History: Smoking Status (Most [...] Encounter took place. Date/Time Current Smoking Status Dandy kumar Dec 10, 2023 11:00 AM VA-TOBACCO QUIT 15 YRS OR MORE [facility] Tobacco Use History This section includes a history of the smoking, or tobacco-related health factors, that were collected on or before the date of the Encounter. The data comes from the [place] facility where the Encounter took place. Date/Time Smoking Status/Tobacco Use Comment F acility Dec 10, 2023 11:00 AM [place]-TOBACCO QUIT 15 YRS OR MORE [facility] Nov 27, 2018 01:03 PM [place]-TOBACCO FORMER USER [facility] Nov 27, 2018 01:03 PM VA-TOBACCO QUIT 1 TO < 5 YRS [facility] Advance Directives: All historical and current [...] 31, 2023 ADVANCE DIRECTIVE DISCUSSION Martin [facility]GE [facility] Encounter Notes: All associated encounter notes This section contains the clinical notes associated to the Encounter. Date/Time Encounter Note(s) Provider Source Dec 10, 2023 11:53 AM CARDIOLOGY CONSULT : LOCAL TITLE: CONSULT/CARDIOLOGY STANDARD TITLE: CARDIOLOGY CONSULT DATE [...] surgery. However, the patient was admitted to [facility] in October 2023 [last month] because [...] history 10/15/2018 SRINI MAGALLANES 1. Father had MN, smoker, in 50's 2. Brother with CVA at age 60 3. 1/2 brother with MN A Chronic kidney disease stage 3 04/27/2019 SRINI MAGALLANES Avoids NSAIDS A TEST RESULTS 10/15/2018 SIRNI MAGALLANES 1. 09/13 colonoscopy normal, repeat 2 [...] the ankle and/or foot 04/27/2019 SRINI MAGALLANES Obesity 05/01/2017 HERIBERTO JORDAN A Sensorineural hearing loss, bilateral 04/23/2017 MIKE HARGROVE Neck pain 05/16/2016 MARY SAMUEL A Obstructive sleep apnea syndrome 04/29/2016 WHITEHEAD,NIKI Split night 04/23/16: AHI 11.8/hr, 82% low sat; 5-14cwp A Atrial fibrillation 10/15/2018 DEBI CUENCA S/P ablation 12/25/2017 Followed by [facility] A Hyperlipidemia 05/09/2015 EFRA POLANCO A Gastroesophageal reflux disease 05/09/2015 EFRA POLANCO A Benign essential hypertension 05/09/2015 EFRA POLANCO I Hearing loss, Resolved 05/01/2017 05/01/2017 JM CHU I Ankle pain, Resolved 05/01/2017 05/01/2017 EFRA POLANCO I Elevated blood pressure, Resolved 05/01/2017 05/01/2017 MIKE CABEZAS I Syncope, Resolved 05/01/2017 05/01/2017 MIKE CABEZAS L I Palpitations, Resolved 05/01/2017 05/01/2017 MIKE CABEZAS [...] test results to the patient. /danny SANFORD Director Of Research Center Signed: 12/10/2023 12:09 12/10/2023 ADDENDUM STATUS: COMPLETED ADDENDUM: EKG: NSR @70 bpm. LVH. /danny SANFORD Director Of Research Center Signed: 12/10/2023 12:[address] [facility] Dec 10, 2023 11:41 AM INTERNAL MEDICINE [...] LPN LPN Signed: 12/10/2023 11:[address] [facility]
--- OUTSIDE RECORDS SUMMARY | 2024-08-13 16:48 | XMS_ITS ---
Author Name [facility] [facility] [place] [facility] [place] Address [address] [place] [address] Care Team Providers Care Copying Machine Repairer Name Role Phone FARIBA CHEUNG Primary Care [...] 10, 2024 01:05 PM AMBULATORY - NONE [facility] Jun 10, 2024 01:20 PM AMBULATORY - NONE [facility] Jun 29, 2024 03:00 PM AMBULATORY - NONE [facility] Jun 29, 2024 03:15 PM AMBULATORY - NONE [facility] Oct 05, 2024 01:00 PM AMBULATORY - NONE [facility] Oct 19, 2024 02:00 PM [facility] [place] [facility] Lab Results: +/- 30 days of [...] Type Comment May 27, 2024 02:[address] [facility] PTH INTCT PLASMA Specimen Type: PLASMA No comment entered. Ordering Provider: CLAUDIA UP Report Released Date/Time: May 11, 2024 04:06 PM Reporting Lab: [facility] [address] [facility] [address] Performing Lab: [facility] [address] [place] [phone] PTH INTCT 83.4 pg/mL H 18.4-80.1 May 27, 2024 02:24 PM [facility] VITAMIN D 25-HYDROXY SERUM Spec imen Type: SERUM Comment: Deficiency <20, Insufficiency 20-30, Sufficiency 30-100, Toxicity >100 ng/mL Ordering Provider: FARIBA CHEUNG Report Released Date/Time: Apr 23, 2024 08:34 AM Reporting Lab: [address] [address] Performing Lab: [address] [address] VITAMIN D 25-HYDROXY 51.70 ng/mL 30-100 May 27, 2024 02:[address] [facility] URINE ALBUMIN/CREAT (RAND URINE) URINE Specim en Type: URINE No comment entered. Ordering Provider: NANCY UP Report Released Date/Time: May 11, 2024 04:06 PM Reporting Lab: [address] [address] Performing Lab: [address] [address] URINE ALBUMIN(RAND URINE) 1.5 mg/dL <2.0 CREAT(RNDM URINE) 210.70 mg/dL 40-278 CREAT RATIO (RNDM URINE) 7 mg/g <30 May 27, 2024 02:24 PM [facility] COMPREHENSIVE PNL PLASMA Specime n Type: PLASMA Comment: eGFR was calculated using the CKD-EPI Creatinine (2020) equation. Ordering Provider: FARIBA CHEUNG Report Released Date/Time: Apr 23, 2024 08:34 AM Reporting Lab: [facility] [address] [facility] [address] Performing Lab: [facility] [address] [facility] [address] ANION GAP 12 mmol/L 5-15 EGFR 75 [...] 31, 2023 ADVANCE DIRECTIVE DISCUSSION Martin [facility] [place] [facility] Encounter Notes: All associated encounter notes This section contains the clinical notes associated to the Encounter. Date/Time Encounter Note(s) Provider Source Jun 02, 2024 07:55 AM NONVA NOTE: LOCAL TITLE: COMMUNITY CARE-SLICK SELF PRESENTING CARE COORD PLAN STANDARD TITLE: NONVA NOTE DATE OF NOTE: JUN 02, 2024@07:55 ENTRY DATE: JUN 04, 2024@07:56:31 AUTHOR: GEORGINAJuly COSIGNER: URGENCY: STATUS: COMPLETED COMMUNITY CARE-SLICK SELF PRESENTING CARE COORD PLAN [address] ADDENDA Emergency Notification Intake Date Presenting to the Facility: May Method of Contact: Notified from [facility] worklist Notification ID: [id number] [facility] Referral #: [id number] Clinical Review [facility] Name: Hospital: [facility] Address: [address] City: [place] State: [place] Zip Code: [address] Community Facility Point of Contact: Name: Nicole Braun Chief complaint: Left Knee Pain Primary Diagnosis: Disposition Unknown at time of intake note entry Faxed request for records to above hospital. [facility] ([id number]) is PCP for this . Primary Care Provider: FARIBA CHEUNG Link Trainer Teacher: BETSY REGALADO N /es/ JULY GEORGINA ADVANCED CAM SPECIALIST Signed: 06/04/2024 08:04 06/09/2024 ADDENDUM STATUS: COMPLETED Discharge Disposition Date of discharge: May Disposition Discharge to home [place] records sent securely to [place] PCP and RNCM. Alerting PCP team to this note for continuity of care-via teams [place] SUMMARY AND RELEVANT RECORDS RECEIVED VIA RIGHTFAX. SENT TO [facility] TO BE SCANNED [facility] Discharge Summary Records:SHARED SECURELY WITH PACT RN AND SENT TO [facility] FOR SCANNING Hospital/discharge Summary (per discharge note): [...] addendum confirming consult placement for follow-up care /es/ SHYANN PISANO RN REGISTERED NURSE Signed: 06/09/2024 14:56 06/11/2024 ADDENDUM STATUS: COMPLETED Episode of Care Complete [facility] C[facility] GENERAL Consult Appt. on 06/29/24 @ 15:00 AT [facility] [place] /danny PISANO RN REGISTERED NURSE Signed: 06/11/2024 10:27 GINNY ERICKSON [facility]
--- OUTSIDE RECORDS SUMMARY | 2024-08-13 16:48 | XMS_ITS ---
Author Name [facility] [place] [facility] [place] Address [address] [place] [address] Care Team Providers Care Manager Of Customer Billing Name Role Phone FARIBA CHEUNG Primary Care Provider Unavailabl e Selected Encounter This section includes the information on record at [place] for the Encounter. Date/Time Encounter Type Encounter Description Reason Provider Source Mar 12, 2024 10:19 AM QNHP OL DIG ASSMT&MGMT 5-10 CL[facility]ICAL PHARMACY ICD-10-CM I48.0 Paroxysmal atrial fibrillation KENNY COOPER Isa Encounter Template Text not used by [place] Assessments - Encounter Diagnoses This section includes the primary and secondary diagnoses documented for the Encounter. 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 This section includes future appointments and future orders which are active, pending or scheduled. Future Appointments This section includes appointments that were scheduled to occur 6 months from the date of the Encounter, up to a maximum of 20 appointments. The data comes from all [place] treatment facilities. Appointment Date/Time Appointment Type Appointme nt Facility Name Mar 30, 2024 01:50 PM AMBULATORY - [facility] Apr 14, 2024 01:30 PM AMBULATORY - NONE [facility] May 11, 2024 01:30 PM AMBULATORY - NONE [facility] May 27, 2024 02:00 PM AMBULATORY - MEDICINE [facility] May 27, 2024 02:40 PM AMBULATORY - NONE [facility] Jun 10, 2024 01:05 PM AMBULATORY - NONE [facility] Jun 10, 2024 01:20 PM AMBULATORY - NONE [facility] Jun 29, 2024 03:00 PM AMBULATORY - NONE [facility] Jun 29, 2024 03:15 PM AMBULATORY - NONE [facility] Lab Results: +/- 30 days of the encounter This section includes the Chemistry and Hematology Lab Results on record with [place] for the patient. Radiology Reports and Pathology Reports are provided separately, in subsequent sections. Lab Results This section contains the Chemistry/Hematology Results that were resulted 30 days before or 30 daysafter the date of the Encounter. Date/Time Source Result Type Result - Unit Interpretation Reference Range Specimen Type Comment Mar 30, 2024 01:37 PM [facility] HIV PCR QUANT (PANEL) PLASMA Specimen Type: PLASMA Comment: Low-risk levels (desirable) [...] Mar 12, 2024 08:39 AM Reporting Lab: [facility] [address] [facility] [address] Performing Lab: [facility] [address] [place] [phone] HIV PCR QUANT(copies/mL) <20 {copies}/mL 0-19 HIV PCR (log) <1.30 0.00-1.29 Mar 30, 2024 01:37 PM [facility] LYMPH SUBSET PANEL 4 ([id number])-[facility] BLOOD Specimen Type: BLOOD Comment: INTERPRETIVE INFORMATION: Lymphocyte Subset 4, Pct. and Ratio, WB The CD4 cells are [place] T-cells expressing both CD3 and CD4. The [...] developed and its performance characteristics determined by [employer]. It has not been cleared or approved by the US Food and Drug Administration. This test was performed in a CLIA certified laboratory and is intended for clinical purposes. Performed By: [facility] [address] [place] [address] Farm Equipment Engine Mechanic: Sabino Diaz MD, PhD [place] Number: [id number] Ordering Provider: OSWALDO EGAN Report Released Date/Time: Mar 12, 2024 08:39 AM Reporting Lab: [facility] [address] [facility] [address] Performing Lab: [facility] [address] [facility] [address] ABSOLUTE CD 3 1191 {cells}/uL 570-2400 ABSOLUTE CD 4 HELPER 634 {cells}/uL 430- 1800 ABSOLUTE CD 8 SUPPRESSOR 557 {cells}/uL 210-1200 % CD 3 POS. LYMPH 84 62-87 % CD 4 POS. LYMPH 45 32-64 % CD 8 POS. LYMPH 39 15-46 CD4/CD8 RATIO 1.15 {ratio} 0.80-3.90 LYMPH SUBSET PANEL 4 INFO See Note Mar 30, 2024 01:37 PM [facility] PHOS PLASMA Sp ecimen Type: PLASMA Comment: Low-risk levels (desirable) <200 [...] Mar 12, 2024 08:39 AM Reporting Lab: [address] [address] Performing Lab: [place] [phone] PHOS 2.9 mg/dL 2.4-5.1 Mar 30, 2024 01:37 PM [facility] LIPID PNL PLASMA Sp ecimen Type: PLASMA Comment: Low-risk levels (desirable) <200 [...] Mar 12, 2024 08:39 AM Reporting Lab: [address] [address] Performing Lab: [address] [address] DIR. HDL 53 mg/dL L >=60 TRIGLYCERIDES 177 mg/dL H See Comment DIR LDL canc CHOL 245 mg/dL H See Comment LDL (CALCULATED) 157 mg/dL H See Comment Mar 30, 2024 01:37 PM [facility] VITAMIN D 25-HYDROXY SERUM Specimen T ype: SERUM Comment: Deficiency <20, Insufficiency 20-30, Sufficiency 30-100, Toxicity >100 ng/mL Ordering Provider: OSWALDO EGAN Report Released Date/Time: Mar 12, 2024 08:39 AM Reporting Lab: [address] [address] Performing Lab: [place] [phone] VITAMIN D 25-HYDROXY 48.30 ng/mL 30-100 Mar 30, 2024 01:37 PM [facility] COMPREHENSIVE PNL PLASMA Specimen Type : PLASMA Comment: Low-risk levels (desirable) <200 mg/dL [...] Mar 12, 2024 08:39 AM Reporting Lab: [address] [address] Performing Lab: [address] [address] ANION GAP 7 mmol/L 5-15 EGFR 62 [...] H 0.73-1.18 Mar 30, 2024 01:37 PM [facility] CBC W/DIFF BLOOD S pecimen Type: BLOOD No comment entered. Ordering Provider: OSWALDO EGAN Report Released Date/Time: Mar 12, 2024 08:39 AM Reporting Lab: [address] [address] Performing Lab: [address] [place] [address] WBC 6.2 10*3/uL 4.0-11.0 RBC 4.94 10*6/uL [...] and tobacco- related health factors from the [place] facility where the Encounter took place. Current Smoking Status This section includes the most current smoking, or tobacco-related health factor, from the [place] facility where the Encounter took place. Date/Time Current Smoking Status Comment Facil ity Dec 10, 2023 11:00 AM [place]-TOBACCO QUIT 15 YRS OR MORE [facility] Tobacco Use History This section includes a history of the smoking, or tobacco-related health factors, that were collected on or before the date of the Encounter. The data comes from the [place] facility where the Encounter took place. 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 This section includes ALL of a patient's completed or amended [place] Advance and Rescinded Directives. The entries below indicate that a directive exists for the patient, but an actual copy is not included with this document. The data comes from all [place] facilities. Date Advance Directives Provider Source Dec 31, 2023 ADVANCE DIRECTIVE DISCUSSION [facility] [place] [facility] Encounter Notes: All associated encounter notes This section contains the clinical notes associated to the Encounter. Date/Time Encounter Note(s) Provider Source Apr 02, 2024 04:21 PM ADDENDUM: LOCAL TITLE: Addendum STANDARD TITLE: ADDENDUM DATE OF NOTE: APR 02, 2024@16:21:29 ENTRY DATE: APR 02, 2024@16:21:29 AUTHOR: BETSY REGALADO EXP COSIGNER: URGENCY: STATUS: COMPLETED Labs were ordered by Dr. Egan with [place] [facility] whom is also seeing he . Hi provider was alerted because you are primary [...] [place] MAR 31, [address] [place], [place] [address] The following tests have been reviewed and show: Comments: Please forward these labs to your other providers and feel free to call and discuss Dr. Cheung Recommendations: If you have any questions please call [facility], at and ask for your Primary Care Provider or your Primary Care Team. If you have a private physician and wish to have copies of your medical records sent to your physician, please send a written request to: [facility] ([id number]), [facility], [address] [place] [address] For [place] use only: mail letter, 04/02/2024 [...] NUGENT 04/02/2024 16:21 /craig/ BETSY AGOSTO RN [facility] Apr 02, 2024 04:12 PM ADDENDUM: LOCAL [...] patient so I have not ordered them. /danny CHEUNG MD Signed: 04/02/2024 16:13 Receipt Acknowledged By: 04/05/2024 15:39 /craig/ SILVIA NUGENT LPN 04/02/2024 16:21 /craig/ BETSY REGALADO RN --- Original Document --- 03/31/24 PROVIDER/PATIENT RESULTS LETTER (P): LALI SUTHERLAND MAR 31, [address] [place], [place] [address] The following tests have been reviewed and show: Comments: Please forward these labs to your other providers and feel free to call and discuss Dr. Cheung Recommendations: If you have any questions please call [facility], at and ask for your Primary Care Provider or your Primary Care Team. If you have a private physician and wish to have copies of your medical records sent to your physician, please send a written request to: [facility] ([id number]), [facility], [address] [place] [address] For [place] use only: mail letter, 04/02/2024 ADDENDUM STATUS: COMPLETED Labs were ordered by Dr. Egan with [place] [facility] whom is also seeing he . Hi provider was alerted because you are primary care so you need to address unless labs have to do with ID which I will alert the results are back. /craig/ BETSY REGALADO RN Signed: 04/02/2024 16:24 Receipt Acknowledged By: 04/05/2024 07:49 /es/ Oswaldo Egan MD physician 04/05/2024 15:07 /es/ FARIBA ANDREW MD [facility] Mar 31, 2024 08:10 AM PRIMARY CARE NOTE: LOCAL TITLE: PROVIDER/PATIENT RESULTS LETTER (P) STANDARD TITLE: PRIMARY CARE NOTE DATE OF NOTE: MAR 31, 2024@08:10 ENTRY DATE: MAR 31, 2024@08:10:56 AUTHOR: FARIBA CHEUNG COSIGNER: URGENCY: STATUS: COMPLETED PROVIDER/PATIENT RESULTS LETTER (P) Has ADDENDA DEPARTMENT OF [facility] ([id number]) [address] [place] [address] ENALALI ROSIBEL MAR 31, [address] [place], [place] [address] The following tests have been reviewed and show: Comments: Please forward these labs to your other providers and feel free to call and discuss Dr. Cheung Recommendations: If you have any questions please call [facility], at and ask for your Primary Care Provider or your Primary Care Team. If you have a private physician and wish to have copies of your medical records sent to your physician, please send a written request to: [facility] ([id number]), [facility], [address] [place] [address] For [place] use only: mail letter, 04/02/2024 [...] Labs were ordered by Dr. Egan with [facility] whom is also seeing he [...] FARIBA CHEUNG MD APR 02, 2024 16:29 [facility] FARIBA CHEUNG [facility] Mar 12, 2024 10:19 AM PHARMACY NOTE: [...] WEIGHT/LABS: 269 lb [122.02 kg] (12/15/2023 13:59) [place] Labs: Test Name Result Units Ref Range [...] of prescribing. Time Spent in minutes: 6 /es/ ELIAN COOPER PHARMD Clinical Pharmacy Practitioner Signed: 03/12/2024 10:27 Receipt Acknowledged By: 03/12/2024 10:44 /es/ BETSY REGALADO RN 03/12/2024 10:35 /es/ ELIAN FISCHER MD [facility]
--- OUTSIDE RECORDS SUMMARY | 2024-08-13 16:48 | XMS_ITS | Encounter Summary ---
Author Name [facility] [place] [facility] [place] Address [address] [place] [address] Care Team Providers Care Staff Sonographer Name Role Phone JONATAN, FARIBA Primary Care Provider Unavailabl e Selected Encounter This section includes the information on record at [place] for the Encounter. Date/Time Encounter Type Encounter Description Reason Provider Source May 27, 2024 02:00 PM OFFICE O/P EST LOW 20 MIN PRIMARY CARE/MEDICINE ICD-10-CM M25.569 Pain in unspecified knee ANA,CRYSTAL L E Encounter Template Text not used by [place] Assessments - Encounter Diagnoses This section includes the primary and secondary diagnoses documented for the Encounter. Date/Time Primary/Secondary Diagnosis Diagnosis Name Provider Source May 27, 2024 02:28 PM PRIMARY Pain in unspecified knee ANA,CRYSTAL L [facility] May 27, 2024 02:28 PM SECONDARY Encounter for immunization PAGAN,PRISC ILLA [facility] Plan of Treatment: Future Appointments (+ 6 months) and Future Tests (+/- 45 days) The Plan of Treatment section includes future care activities for the patient from all [place] treatmentfacilities. This section includes future appointments and future orders which are active, pending or scheduled. Future Appointments This section includes appointments that were scheduled to occur 6 months from the date of the Encounter, up to a maximum of 20 appointments. The data comes from all [place] treatment facilities. Appointment Date/Time Appointment Type Appointme nt Facility Name Jun 10, 2024 01:05 PM AMBULATORY - NONE [facility] Jun 10, 2024 01:20 PM AMBULATORY - NONE [facility] Jun 29, 2024 03:00 PM AMBULATORY - NONE [facility] Jun 29, 2024 03:15 PM AMBULATORY - NONE [facility] Oct 05, 2024 01:00 PM AMBULATORY - NONE [facility] Oct 19, 2024 02:00 PM AMBULATORY - NONE [facility] Lab Results: +/- 30 days of the encounter This section includes the Chemistry and Hematology Lab Results on record with [place] for the patient. Radiology Reports and Pathology Reports are provided separately, in subsequent sections. Lab Results This section contains the Chemistry/Hematology Results that were resulted 30 days before or 30 daysafter the date of the Encounter. Date/Time Source Result Type Result - Unit Interpretation Reference Range Specimen Type Comment May 27, 2024 02:24 PM [facility] PTH INTCT PLASMA Specimen Type: PLASMA No comment entered. Ordering Provider: CLAUDIA UP Report Released Date/Time: May 11, 2024 04:06 PM Reporting Lab: [facility] [address] [place] [id number] Performing Lab: [facility] [address] [place] [phone] PTH INTCT 83.4 pg/mL H 18.4-80.1 May 27, 2024 02:24 PM [facility] VITAMIN D 25-HYDROXY SERUM Spec imen Type: SERUM Comment: Deficiency <20, Insufficiency 20-30, Sufficiency 30-100, Toxicity >100 ng/mL Ordering Provider: FARIBA CHEUNG Report Released Date/Time: Apr 23, 2024 08:34 AM Reporting Lab: [facility] [address] [place] [phone] Performing Lab: [address] [address] VITAMIN D 25-HYDROXY 51.70 ng/mL 30-100 May 27, 2024 02:24 PM [facility] URINE ALBUMIN/CREAT (RAND URINE) URINE Specim en Type: URINE No comment entered. Ordering Provider: NANCY UP Report Released Date/Time: May 11, 2024 04:06 PM Reporting Lab: [facility] [address] [place] [phone] Performing Lab: [address] [address] URINE ALBUMIN(RAND URINE) 1.5 mg/dL <2.0 CREAT(RNDM URINE) 210.70 mg/dL 40-278 CREAT RATIO (RNDM URINE) 7 mg/g <30 May 27, 2024 02:24 PM [facility] COMPREHENSIVE PNL PLASMA Specime n Type: PLASMA Comment: eGFR was calculated using the CKD-EPI Creatinine (2020) equation. Ordering Provider: FARIBA CHEUNG Report Released Date/Time: Apr 23, 2024 08:34 AM Reporting Lab: [place] [id number] [facility] [address] Performing Lab: [place] [address] [facility] [address] ANION GAP 12 mmol/L 5-15 EGFR 75 [...] Source May 27, 2024 02:10 PM 134/91 [facility] May 27, 2024 01:49 PM 97.7 103 152/92 22 94 7 264.4 33 [facility] Immunizations: All administered on the encounter date This section contains immunizations associated to the Encounter. Immunization Series Date Issued Administered By Site Reaction Lot Number CVX Code Drug Pediatric Oncology Nurse Comment(s) Source INFLUENZA, SPLIT VIRUS, TRIVALENT, PF May 27, 2024 MELITA PAGAN LEFT DELTO ID [id number] Completed Series, ADMINISTERE D AT [facility] TDAP May 27, 2024 MELITA PAGAN RIGHT DELTO ID [id number] [employer] Completed Neo, ADMINISTERE D AT [facility] Social History: Smoking Status (Most current) and Tobacco Use (All prior to encounter date) This section includes the most current, and the historical, smoking and tobacco- related health factors from the [place] facility where the Encounter took place. Current Smoking Status This section includes the most current smoking, or tobacco-related health factor, from the [place] facility where the Encounter took place. Date/Time Current Smoking Status Comment Facil it Aug 13, 2022 01:30 PM VA-TOBACCO FORMER USER [facility] Tobacco Use History This section includes a history of the smoking, or tobacco-related health factors, that were collected on or before the date of the Encounter. The data comes from the [place] facility where the Encounter took place. Date/Time Smoking Status/Tobac co Use Comment Facility Aug 13, 2022 01:30 PM VA-TOBACCO QUIT 5 TO < 15 YRS [facility] Apr 03, 2021 01:30 PM VA-TOBACCO FORMER USER [facility] Apr 03, 2021 01:30 PM VA-TOBACCO QUIT 5 TO < 15 YRS [facility] Jan 18, 2020 11:00 AM VA-TOBACCO FORMER USER [facility] Jan 18, 2020 11:00 AM [place]-TOBACCO QUIT 5 TO < 15 YRS [facility] Jan 23, 2018 08:39 AM VA-TOBACCO FORMER USER [facility] Jan 23, 2018 08:39 AM VA-TOBACCO QUIT 5 TO < 15 YRS [facility] May 01, 2017 01:39 PM QUIT TOBACCO >7 YEARS AGO 10YEARS AGO [facility] May 01, 2017 01:39 PM TOBACCO CESSATION MEDS REFUSED STOP 10YEARS AGO [facility] May 01, 2017 01:39 PM TOBACCO CESSATION REFERRAL REFUSED [facility] May 01, 2017 01:39 PM TOBACCO OFFERRED STOP SMOKING CLINIC [facility] Mar 18, 2016 02:02 PM QUIT TOBACCO >7 YEARS AGO [facility] Mar 18, 2016 02:02 PM TOBACCO CESSATION MEDS REFUSED STOPPED 8YRS AGO [facility] Mar 18, 2016 02:02 PM TOBACCO CESSATION REFERRAL REFUSED [facility] Mar 18, 2016 02:02 PM TOBACCO OFFERRED STOP SMOKING CLINIC [facility] Dec 16, 2013 08:31 AM LIFETIME NON-USER OF TOBACCO [facility] Advance Directives: All historical and current Section Date Range: From patient's date of to the date document was created. This section includes ALL of a patient's completed or amended [place] Advance and Rescinded Directives. The entries below indicate that a directive exists for the patient, but an actual copy is not included with this document. The data comes from all [place] facilities. Date Advance Directives Provider Source Dec 31, 2023 ADVANCE DIRECTIVE DISCUSSION Martin MONGE [facility] Encounter Notes: All associated encounter notes This section contains the clinical notes associated to the Encounter. Date/Time Encounter Note(s) Provider Source May 27, 2024 02:28 PM PHYSICIAN NOTE: LOCAL TITLE: PROVIDER/MEDICATION RECONCILIATION STANDARD TITLE: PHYSICIAN NOTE DATE OF NOTE: MAY 27, 2024@14:28 ENTRY DATE: MAY 27, 2024@14:29:04 AUTHOR: DELLA PEREZ COSIGNER: URGENCY: STATUS: COMPLETED DEPARTMENT OF [facility] [address] [place], [place] [address] LALI SUTHERLAND MAY 27, 2024 [address] [place], [place] [address] The following medication list was reviewed with the patient/caregiver: MRT5 - Allergies/ADRs FACILITY ALLERGY/ADR -------- [facility] ATORVASTATIN [facility] PRAVASTATIN [facility] ATORVA[facility] MRR1 - Med Reconciliation INCLUDED IN THIS LIST: Alphabetical list of active outpatient prescriptions dispensed from this [place] (local) and dispensed from another [place] or [facility] facility (remote) as well as inpatient orders (local pending and active), local clinic medications, locally documented non-VA medications, and local prescriptions that have or been discontinued in the past 90 days. Non-VA Meds Last Documented On: Jan 23, 2018 NOTE The display of VA prescriptions dispensed from another [place] or [facility] facility (remote) is limited to active outpatient prescription entries matched to National Drug File at the originating site and may not include some items such as investigational drugs, compounds, etc. NOT INCLUDED IN THIS LIST: Medications self-entered by the patient into personal health records (i.e. Eachpal) are NOT included in this list. Non-VA medications documented outside this [place], remote inpatient orders (regardless of status) and [...] TABLET BY MOUTH TWICE A DAY Rx# [id number] Last Released: 01/01/24 Qty/Days Supply: 180/90 Rx Expiration Date: 04/20/24 Refills Remainin OUTPT APIXABAN 5MG TAB (Status = Active) TAKE ONE TABLET BY MOUTH TWICE A DAY Rx# [id number] Last Released: 03/29/24 Qty/Days Supply: 180/90 Rx Expiration Date: 03/13/25 Refills Remainin Non-VA ASPIRIN 81MG EC TAB TAKE ONE TABLET BY MOUTH EVERY DAY Patient wants to buy from non-VA pharmacy OUTPT ASPIRIN 81MG EC TAB (Status = Active) TAKE ONE TABLET BY MOUTH EVERY DAY Rx# [id number] Last Released: 04/26/24 Qty/Days Supply: 120/90 Rx Expiration Date: 04/22/25 Refills Remainin Indication: TO PREVENT A STROKE OR HEART ATTACK OUTPT ATORVASTATIN CALCIUM 80MG TAB (Status = Active) TAKE ONE TABLET BY MOUTH AT BEDTIME CALL YOUR PROVIDER IF YOU HAVE MUSCLE PAIN, TENDERNESS OR WEAKNESS Rx# [id number] Last Released: 04/26/24 Qty/Days Supply: 90/90 Rx Expiration Date: 04/22/25 Refills Remainin Indication: FOR CHOLESTEROL OUTPT BIC 50/EMT 200/TEN 25 (EQV-BIKTARVY) TAB (Status = Active) TAKE 1 TABLET BY MOUTH EVERY DAY FOR INFECTION DO NOT MIX WITH MINERALS/MVI FOR ADEQUATE ABSORPTION. Rx# [id number] Last Released: 05/24/24 Qty/Days Supply: Rx Expiration Date: 02/25/25 Refills Remainin OUTPT BUSPIRONE HCL 5MG TAB (Status = Active) TAKE ONE TABLET BY MOUTH TWICE A DAY FOR ANXIETY Rx# [id number] Last Released: 12/30/23 Qty/Days Supply: Rx Expiration Date: 09/12/24 Refills Remainin Indication: FOR ANXIETY OUTPT CALCITRIOL 0.25MCG CAP (Status = Active) TAKE ONE CAPSULE BY MOUTH DAILY Rx# [id number] Last Released: 04/26/24 Qty/Days Supply: Rx Expiration [...] MOUTH EVERY DAY FOR BLOOD PRESSURE/HEART Rx# [id number] Last Released: 08/30/23 Qty/Days Supply: Rx Expiration Date: 05/15/24 Refills Remainin OUTPT ERGOCALCIF 1,250MCG (D2-50,000UNIT) CAP (Status = Discontinued) TAKE ONE CAPSULE BY MOUTH ONCE WEEKLY ON FRIDAY FOR VITAMIN D- SUPPLEMENT Rx# [id number] Last Released: 03/03/24 Qty/Days Supply: Rx Expiration Date: 12/26/24 Refills Remainin OUTPT FOLIC ACID 1MG TAB (Status = Active) TAKE ONE TABLET BY MOUTH DAILY Rx# [id number] Last Released: 04/26/24 Qty/Days Supply: Rx Expiration Date: 04/22/25 Refills Remainin Indication: FOR ANEMIA OUTPT METOPROLOL SUCCINATE 50MG SA TAB (Status = Active) TAKE ONE TABLET BY MOUTH NIGHTLY FOR BLOOD PRESSURE Rx# [id number] Last Released: 03/03/24 Qty/Days Supply: Rx Expiration Date: 12/18/24 Refills Remainin Indication: FOR BLOOD PRESSURE OUTPT MULTIVITAMIN/MINERALS THERAPEUT CAP/TAB (Status = Active) TAKE 1 CAP/TAB BY MOUTH DAILY Rx# [id number] Last Released: 04/26/24 Qty/Days Supply: Rx Expiration Date: 04/22/25 Refills Remainin Indication: FOR LACK IN VITAMINS OUTPT PANTOPRAZOLE NA 40MG EC TAB (Status = Active) TAKE ONE TABLET BY MOUTH EVERY DAY Rx# [id number] Last Released: 05/11/24 Qty/Days Supply: Rx Expiration Date: 12/18/24 Refills Remainin OUTPT POTASSIUM CL 20MEQ SA TAB (DISPERSIBLE) (Status = ) TAKE ONE TABLET BY MOUTH DAILY FOR POTASSIUM SUPPLEMENT Rx# [id number] Last Released: 03/03/24 Qty/Days Supply: Rx Expiration Date: 05/08/24 Refills Remainin OUTPT ROSUVASTATIN CA 20MG TAB (Status = Discontinued) TAKE ONE TABLET BY MOUTH EVERY DAY CALL YOUR PROVIDER IF YOU HAVE MUSCLE PAIN, TENDERNESS OR WEAKNESS Rx# [id number] Last Released: 03/22/24 Qty/Days Supply: Rx Expiration Date: 03/19/25 Refills Remainin OUTPT TAMSULOSIN HCL 0.4MG CAP (Status = Active) TAKE ONE CAPSULE BY MOUTH EVERY EVENING TAKE 30 MINUTES AFTER A MEAL Rx# [id number] Last Released: 05/12/24 Qty/Days Supply: Rx Expiration Date: 10/01/24 Refills Remainin Indication: FOR PROSTATE OUTPT THIAMINE 100MG TAB (Status = Active) TAKE ONE TABLET BY MOUTH DAILY Rx# [id number] Last Released: 04/26/24 Qty/Days Supply: Rx Expiration Date: 04/22/25 Refills Remainin Indication: FOR VITAMIN SUPPLEMENT OUTPT VENLAFAXINE HCL 150MG 24HR SA CAP (Status = Active/Suspended) TAKE ONE CAPSULE BY MOUTH DAILY FOR DEPRESSION WITH FOOD - MOOD Rx# [id number] Last Released: 03/11/24 Qty/Days Supply: Rx Expiration Date: 12/26/24 Refills Remainin Indication: FOR DEPRESSION SUPPLIES Potential risks, benefits, and alternative to medications prescribed were discussed with [place]/caregiver who was given an opportunity to ask questions, which were answered to the best of my ability and seemingly to their satisfaction. /caregiver was/were instructed to contact provider (means provided) with any concerns or questions. A list of reconciled medications was provided to the /caregiver. /craig/ DELLA PEREZ Physician Inspector Penetrant Date printed: MAY 27, 2024 14:32 DELLA Garcia [facility] May 27, 2024 01:54 PM NURSING NOTE: LOCAL TITLE: RACHELLE/PREVMED STANDARD TITLE: NURSING NOTE DATE OF NOTE: MAY 27, 2024@13:54 ENTRY DATE: MAY 27, 2024@13:54:11 AUTHOR: INGRID PAGAN COSIGNER: URGENCY: STATUS: COMPLETED TWO OR MORE PATIENT IDENTIFIERS REQUIRED FULL NAME SS NUMBER Date [place] here for left knee pain swollen and [...] Administered: May 27, 2024 14:00 Series: Complete Pediatric Oncology Nurse: XY Mobile Lot: [id number] Exp Date: Mar 13, 2026 ND: [id number] Admin Route/Site: INTRAMUSCULAR/RIGHT DELTOID Dosage: 0.5mL Vaccine Information Statement(s): TDAP (TETANUS, DIPHTHERIA, PERTUSSIS) VACCINE VIS Dec 01, 2020 (YEMENI) Order By: Policy Administered By: Ingrid Pagan [...] Administered: May 27, 2024 14:00 Series: Complete Pediatric Oncology Nurse: XY Mobile Lot: [id number] Exp Date: Oct 25, 2024 ND: [id number] Admin Route/Site: INTRAMUSCULAR/LEFT DELTOID Dosage: 0.5mL Vaccine Information Statement(s): INFLUENZA(FLU) VACC(INACTIVATED OR RECOMBINANT)VIS Dec 01, 2020 (YEMENI) Order By: Policy Administered By: Ingrid Pagan [...] PAGAN LPN Signed: 05/27/2024 14:10 INGRID PAGAN [facility] May 27, 2024 01:52 PM PRIMARY CARE NOTE: LOCAL TITLE: [facility] STANDARD TITLE: PRIMARY CARE NOTE DATE OF [...] 13. Diverticulitis 14. Panic attack 15. Thrombocytopenia ([facility] [id number]) 16. HIV - Human Immunodeficiency Virus Infection ([facility] [id number]) 17. Chronic Low Back Pain ([facility] [id number]) 18. Spinal Stenosis of Lumbar Region ([facility] [id number]) 19. Vitamin D deficiency 20. Tinnitus 21. [...] referring to and communicating with other health hourly caregiver, documenting clinical information in the electronic or other health record, independently interpreting results, communicating results to the patient/family/caregiver, and care coordination. /craig/ DELLA PEREZ Physician Inspector Penetrant Signed: 05/27/2024 14:28 DELLA PEREZ [facility]
--- OUTSIDE RECORDS SUMMARY | 2024-08-13 16:48 | XMS_ITS | Encounter Summary ---
Author Name [facility] [place] Organization [place] Address [address] [place] [address] Care Team Providers Care Outreach Counselor Name Role Phone FARIBA CHEUNG Primary Care [...] 31, 2023 ADVANCE DIRECTIVE DISCUSSION [facility]
--- OUTSIDE RECORDS SUMMARY | 2024-08-13 16:48 | XMS_ITS | Encounter Summary ---
Author Name [facility] [place] [facility] [place] Address [address] [place] [address] Care Team Providers Care Geographic Information Systems Director Name Role Phone JONATANFARIBA Castillo Primary Care Provider Unavailabl e Selected Encounter This section includes the information on record at [place] for the Encounter. Date/Time Encounter Type Encounter Description Reason Pro vider Source Aug 13, 2024 04:32 PM Outpatient Encounter TELEPHONE TRIAGE IHE Encounter Template Text not used by [place] Plan of Treatment: Future Appointments (+ 6 months) and Future Tests (+/- 45 days) The Plan of Treatment section includes future care activities for the patient from all [place] treatmentfacilities. This section includes future appointments and [...] 05, 2024 01:00 PM AMBULATORY - NONE [facility] Oct 19, 2024 02:00 PM AMBULATORY - NONE [facility] Social History: Smoking Status (Most current) and Tobacco Use (All prior to encounter date) This section includes the most current, and the historical, smoking and tobacco- related health factors from the [place] facility where the Encounter took place. Current Smoking Status This section includes the most current smoking, or tobacco-related health factor, from the [place] facility where the Encounter took place. Date/Time Current Smoking Status Comment Kyra kumar Dec 10, 2023 11:00 AM VA-TOBACCO QUIT 15 YRS OR MORE [facility] Tobacco Use History This section includes a history of the smoking, or tobacco-related health factors, that were collected on or before the date of the Encounter. The data comes from the [place] facility where the Encounter took place. Date/Time Smoking Status/Tobacco Use Comment F acility Dec 10, 2023 11:00 AM VA-TOBACCO QUIT 15 YRS OR MORE [facility] Nov 27, 2018 01:03 PM [place]-TOBACCO FORMER USER [facility] Nov 27, 2018 01:03 PM [place]-TOBACCO QUIT 1 TO < 5 YRS [facility] Advance Directives: All historical and current Section [...] 31, 2023 ADVANCE DIRECTIVE DISCUSSION Martin [facility] [place] [facility] Encounter Notes: All associated encounter notes This section contains the clinical notes associated to the Encounter. Date/Time Encounter Note(s) Provider Source Aug 13, 2024 04:32 PM RN PROGRESS NOTE: LOCAL TITLE: CCC: CLINICAL TRIAGE STANDARD TITLE: RN PROGRESS NOTE DATE OF NOTE: AUG 13, 2024@16:32:37 ENTRY DATE: AUG 13, 2024@16:32:37 AUTHOR: JOURDAN ERWIN COSIGNER: URGENCY: STATUS: COMPLETED Caller Verification Call Back Number: [phone] Caller/Recipient Relation to Patient: Self Caller Name: LALI SUTHERLAND Emergency Contact: [place] SUTHERLAND MSA Screening Patient Stated Symptoms: left foot pain(severe) x 1 week; swelling toes, ankle swelling Triage Summary Conducted triage/discussed symptoms Pain Score: 10 (Severe Pain) Utilized the Triage Tool: Yes Chief Complaint: Neurologic Deficit Nurse's Recommendation / WHEN: Now Nurse's Recommendation / WHERE: ED Other Patient Disposition Patient/Caregiver agrees to plan of care: Yes Patient WHERE: ED Other Patient WHEN: Now Patient is Urgent or Emergent Nursing Plan and Disposition Referred patient to higher level of care Instructed to go to Emergency Room (ER) Advised of Financial Disclaimer: Patient advised that recommendation for care provided during the call does not constitute an approval or authorization for payment by the [place] or its staff. Patient advised to report a community ED visit to the [facility] Office of Community Care at within 72 hours. Nurse Summary Nurse Summary: Contact with Caller, - Full name, and address verified. /caller wants resolved. At [facility] parking lot. [place]/caller reports Sx: left foot pain; swelling toes, ankle swelling Great to 3rd toe initially. With walking numbness. 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 Dragging foot with walking x 1 week. Pain: 10 /10 worse scale since this am. Onset x 1 week, Since onset, sx are worsening.Pain since this am Hurts like hell. Has tried PEDRO twice without evaluation. Tripped x 3 and landed R side, most recent fall 4 d ago. Landed concrete. No head but hurt shoulder, arm. Blood thinner. RN best and safest recommendation evaluation in 911/[facility]. calling from parking lot of [facility]. 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 Caller / [place] preference / agrees to : [facility] Local non-VA ER. Disclaimer information given. Reminded our to call the Non-VA care department within 72 hours of being seen at an outside hospital so they can submit the bill for Consideration of payment. ([phone]). ASIF form. RNs are not allowed to authorize payment of ER charges. The VA will review for consideration of the charges. Cautioned against driving self in. Take cell phone with you and heat treat puller and call 911 if symptoms worsen while traveling. Advised to Contact [place] Clinical Contact Center Triage Department for new or worsening symptoms, or other concerns prior to being seen. Any delay in seeking treatment could worsen symptoms that may be serious / life threatening. [facility] phone number given to [place]/caller. Caller/Patient verbalized understanding/ no further questions. Caller/[place] agrees to contact [facility] Triage department at if further questions or sx/ changes. Clinical Contact Center Codes Clinic/Location: [address] PHONE RN Decision Support System Output: Triage Complete Triage Date: 08/13/2024, 04:29 PM Triage Note: Decision Support Tool Used: ClearTriage Protocol Used: Neurologic Deficit Protocol-Based Disposition: Call EMS 911 Now Positive Triage Questions: * [1] Weakness (i.e., paralysis, loss of muscle strength) of the face, arm / hand, or leg / foot on one side of the body AND [2] sudden onset AND [3] present now (Exception: Rodríguez's palsy suspected: weakness on one side of the face developing over hours to days, with no other symptoms.) * [1] Numbness (i.e., loss of sensation) of the face, arm / hand, or leg / foot on one side of the body AND [2] sudden onset AND [3] present now * Sounds like a life-threatening emergency to the triager IMPORTANT: This note was created by [facility] Clinical Contact Center staff. Please do not alert the staff member by adding them as a signer for future communications. Alerts are not monitored by this user. /craig/ JOURDAN ERWIN REGISTERED NURSE Signed: 08/13/2024 16:32 Receipt Acknowledged By: * AWAITING SIGNATURE * BETSY REGALADO * AWAITING SIGNATURE * FARIBA CHEUNG [facility]
--- OUTSIDE RECORDS SUMMARY | 2024-08-13 16:48 | XMS_ITS | Encounter Summary ---
Author Name [facility] [facility] [facility] [place] Address [address] [place] [address] Care Team Providers Care Rotary Cutter Feeder Name Role Phone FARIBA CHEUNG Primary Care Provider Unavailabl e Selected Encounter This section includes the information on record at [place] for the Encounter. Date/Time Encounter Type Encounter Description Reason Pro vider Source May 27, 2024 10:44 AM Outpatient Encounter COMMUNITY CARE CONSULT IHE Encounter Template Text not used by [place] Plan of Treatment: Future Appointments (+ 6 months) and Future Tests (+/- 45 days) The Plan of Treatment section includes future care activities for the patient from all [place] treatmentfacilities. This section includes future appointments and future orders which are active, pending or scheduled. Future Appointments This section includes appointments that were scheduled to occur 6 months from the date of the Encounter, up to a maximum of 20 appointments. The data comes from all [place] treatment facilities. Appointment Date/Time Appointment Type Appointme nt Facility Name Jun 10, 2024 01:05 PM AMBULATORY - NONE [facility] Jun 10, 2024 01:20 PM AMBULATORY - NONE [facility] Jun 29, 2024 03:00 PM AMBULATORY - NONE [facility] Jun 29, 2024 03:15 PM AMBULATORY - NONE [facility] Oct 05, 2024 01:00 PM AMBULATORY - NONE [facility] Oct 19, 2024 02:00 PM AM[facility] NONE [facility] Lab Results: +/- 30 days of the encounter This section includes the Chemistry and Hematology Lab Results on record with [place] for the patient. Radiology Reports and Pathology Reports are provided separately, in subsequent sections. Lab Results This section contains the Chemistry/Hematology Results that were resulted 30 days before or 30 daysafter the date of the Encounter. Date/Time Source Result Type Result - Unit Interpretation Reference Range Specimen Type Comment May 27, 2024 02:24 PM [facility] PTH INTCT PLASMA Specimen Type: PLASMA No comment entered. Ordering Provider: CLAUDIA UP Report Released Date/Time: May 11, 2024 04:06 PM Reporting Lab: [address] [address] Performing Lab: [facility] [address] [place] [phone] PTH INTCT 83.4 pg/mL H 18.4-80.1 May 27, 2024 02:[address] [facility] VITAMIN D 25-HYDROXY SERUM Spec imen Type: SERUM Comment: Deficiency <20, Insufficiency 20-30, Sufficiency 30-100, Toxicity >100 ng/mL Ordering Provider: FARIBA CHEUNG Report Released Date/Time: Apr 23, 2024 08:34 AM Reporting Lab: [address] [phone] Performing Lab: [address] [address] VITAMIN D 25-HYDROXY 51.70 ng/mL 30-100 May 27, 2024 02:24 PM [facility] URINE ALBUMIN/CREAT (RAND URINE) URINE Specim en Type: URINE No comment entered. Ordering Provider: NANCY UP Report Released Date/Time: May 11, 2024 04:06 PM Reporting Lab: [address] [address] Performing Lab: [address] [address] URINE ALBUMIN(RAND URINE) 1.5 mg/dL <2.0 CREAT(RNDM URINE) 210.70 mg/dL 40-278 CREAT RATIO (RNDM URINE) 7 mg/g <30 May 27, 2024 02:[address] [facility] COMPREHENSIVE PNL PLASMA Specime n Type: PLASMA Comment: eGFR was calculated using the CKD-EPI Creatinine (2020) equation. Ordering Provider: FARIBA CHEUNG Report Released Date/Time: Apr 23, 2024 08:34 AM Reporting Lab: [address] [address] Performing Lab: [facility] [address] [facility] [address] ANION GAP 12 mmol/L 5-15 EGFR 75 [...] and tobacco- related health factors from the [place] facility where the Encounter took place. Current Smoking Status This section includes the most current smoking, or tobacco-related health factor, from the NE facility where the Encounter took place. Date/Time Current Smoking Status Comment Kyra kumar Dec 10, 2023 11:00 AM VA-TOBACCO FORMER USER [facility] Tobacco Use History This section includes a history of the smoking, or tobacco-related health factors, that were collected on or before the date of the Encounter. The data comes from the [place] facility where the Encounter took place. Date/Time Smoking Status/Tobacco Use Comment Pilo oconnor Dec 10, 2023 11:00 AM VA-TOBACCO QUIT 15 YRS OR MORE [facility] Nov 27, 2018 01:03 PM VA-TOBACCO FORMER USER [facility] Nov 27, 2018 01:03 PM VA-TOBACCO QUIT 1 TO < 5 YRS [facility] Advance Directives: All historical and current Section Date Range: From patient's date of to the date document was created. This section includes ALL of a patient's completed or amended [place] Advance and Rescinded Directives. The entries below indicate that a directive exists for the patient, but an actual copy is not included with this document. The data comes from all [place] facilities. Date Advance Directives Provider Source Dec 31, 2023 ADVANCE DIRECTIVE DISCUSSION LEX[facility]AND[facility]Martin [facility] Encounter Notes: All associated encounter notes This section contains the clinical notes associated to the Encounter. Date/Time Encounter Note(s) Provider Source May 27, 2024 10:44 AM NONVA NOTE: LOCAL TITLE: [facility]-ADMINISTRATIVE REQUEST STANDARD TITLE: NONVA NOTE DATE OF NOTE: MAY 27, 2024@10:44 ENTRY DATE: MAY 27, 2024@10:44:40 AUTHOR: ARIEL BACK EXP COSIGNER: URGENCY: STATUS: COMPLETED , returning call to [facility] to speak with the [facility] nurse for his Ortho with out patient. Fletcher is requesting a call back at this time to discuss this consult. contact number: [phone] [employer] Lending Trader provided all the inforamtion that the had at time of call. /craig/ ARIEL BACK [facility] Signed: 05/27/2024 10:46 Receipt Acknowledged By: 05/27/2024 11:19 /craig/ RITU SERRANO,GEMA REGISTERED NURSE ARIEL BACK [facility]
--- OUTSIDE RECORDS SUMMARY | 2024-08-13 16:49 | XMS_ITS | Encounter Summary ---
Author Name [facility] [facility] [place] Address [address] [place] [address] Care Team Providers Care Supervisor Lace Tearing Name Role Phone FARIBA CHEUNG Primary Care Provider Unavailabl e Selected Encounter This section includes the information on record at [place] for the Encounter. Date/Time Encounter Type Encounter Description Reason Provider Source Mar 02, 2024 12:05 PM Outpatient Encounter GENERAL INTERNAL MEDICINE VANITA ESCAMILLA [facility] Encounter Template Text not used by [place] Plan of Treatment: Future Appointments (+ 6 months) and Future Tests (+/- 45 days) The Plan of Treatment section includes future care activities for the patient from all [place] treatmentfacilities. This section includes future appointments and future orders which are active, pending or scheduled. Future Appointments This section includes appointments that were scheduled to occur 6 months from the date of the Encounter, up to a maximum of 20 appointments. The data comes from all [place] treatment facilities. Appointment Date/Time Appointment Type Appointme nt Facility Name Mar 30, 2024 01:50 PM AMBULATORY - NONE [facility] Apr 14, 2024 01:30 PM AMBULATORY - NONE [facility] May 11, 2024 01:30 PM AMBULATORY - NONE [facility] May 27, 2024 02:00 PM AMBULATORY - MEDICINE [facility] May 27, 2024 02:40 PM AMBULATORY - NONE [facility] Jun 10, 2024 01:05 PM AMBULATORY - NONE [facility] Jun 10, 2024 01:20 PM AMBULATORY - NONE [facility] Jun 29, 2024 03:00 PM AMBULATORY - NONE [facility] Jun 29, 2024 03:15 PM AMBULATORY - NONE [facility] Lab Results: +/- 30 days of the [...] Type Comment Mar 30, 2024 01:37 PM [facility] HIV PCR QUANT (PANEL) PLASMA Specimen Type: [...] AM Reporting Lab: [facility] [address] [facility] [address] Performing Lab: [facility] [address] [place] [phone] HIV PCR QUANT(copies/mL) <20 {copies}/mL 0-19 HIV PCR (log) <1.30 0.00-1.29 Mar 30, 2024 01:37 PM [facility] LYMPH SUBSET PANEL 4 ([id number])-[facility] BLOOD Specimen Type: BLOOD Comment: INTERPRETIVE INFORMATION: Lymphocyte Subset 4, Pct. and Ratio, WB The CD4 cells are Chandler T-cells expressing both CD3 and CD4. The [...] developed and its performance characteristics determined by [employer]. It has not been cleared or approved by the [place] Food and Drug Administration. This test was performed in a CLIA certified laboratory and is intended for clinical purposes. Performed By: [address] [address] Law Instructor: Sabino Diaz MD, PhD CLIA Number: [id number] Ordering Provider: OSWALDO EGAN Report Released Date/Time: Mar 12, 2024 08:39 AM Reporting Lab: [address] [address] Performing Lab: [facility] [address] [facility] [address] ABSOLUTE CD 3 1191 {cells}/uL 570-2400 ABSOLUTE CD 4 HELPER 634 {cells}/uL 430- 1800 ABSOLUTE CD 8 SUPPRESSOR 557 {cells}/uL 210-1200 % CD 3 POS. LYMPH 84 62-87 % CD 4 POS. LYMPH 45 32-64 % CD 8 POS. LYMPH 39 15-46 CD4/CD8 RATIO 1.15 {ratio} 0.80-3.90 LYMPH SUBSET PANEL 4 INFO See Note Mar 30, 2024 01:37 PM [facility] PHOS PLASMA Sp ecimen Type: PLASMA Comment: [...] Mar 12, 2024 08:39 AM Reporting Lab: [address] [address] Performing Lab: [address] [address] PHOS 2.9 mg/dL 2.4-5.1 Mar 30, 2024 01:37 PM [facility] VITAMIN D 25-HYDROXY SERUM Specimen T ype: SERUM Comment: Deficiency <20, Insufficiency 20-30, Sufficiency 30-100, Toxicity >100 ng/mL Ordering Provider: OSWALDO EGAN Report Released Date/Time: Mar 12, 2024 08:39 AM Reporting Lab: [address] [address] Performing Lab: [address] [address] VITAMIN D 25-HYDROXY 48.30 ng/mL 30-100 Mar 30, 2024 01:37 PM [facility] LIPID PNL PLASMA Sp ecimen Type: PLASMA [...] Mar 12, 2024 08:39 AM Reporting Lab: [address] [address] Performing Lab: [address] [address] DIR. HDL 53 mg/dL L >=60 TRIGLYCERIDES 177 mg/dL H See Comment DIR LDL canc CHOL 245 mg/dL H See Comment LDL (CALCULATED) 157 mg/dL H See Comment Mar 30, 2024 01:37 PM [facility] COMPREHENSIVE PNL PLASMA Specimen Type : PLASMA [...] Mar 12, 2024 08:39 AM Reporting Lab: [address] [address] Performing Lab: [address] [address] ANION GAP 7 mmol/L 5-15 EGFR 62 [...] 01:37 PM [facility] CBC W/DIFF BLOOD S pecimen Type: BLOOD No comment entered. Ordering Provider: OSWALDO EGAN Report Released Date/Time: Mar 12, 2024 08:39 AM Reporting Lab: [address] [address] Performing Lab: [address] [address] WBC 6.2 10*3/uL 4.0-11.0 RBC 4.94 10*6/uL [...] ALL of a patient's completed or amended [place] Advance and Rescinded Directives. The entries below indicate that a directive exists for the patient, but an actual copy is not included with this document. The data comes from all [place] facilities. Date Advance Directives Provider Source Dec 31, 2023 ADVANCE DIRECTIVE DISCUSSION Martin [facility] Encounter Notes: All associated encounter notes This section contains the clinical notes associated to the Encounter. Date/Time Encounter Note(s) Provider Source Feb 25, 2024 12:05 PM NONVA NOTE: LOCAL TITLE: [facility] PRESENTING CARE COORD PLAN STANDARD TITLE: NONVA NOTE DATE OF NOTE: FEB 25, 2024@12:05 ENTRY DATE: MAR 02, 2024@12:05:38 AUTHOR: SHYANN ESCAMILLA COSIGNER: URGENCY: STATUS: COMPLETED Emergency Notification Intake Date Presenting to the Facility: Jan Method of Contact: Submitted to Centralized Call Center Notification ID: [id number] [facility] Referral #: [id number] [facility] Name: Hospital: [facility] Address: City: [place] State: [place] Zip Code: Phone : Community Facility Point of Contact: Name: Phone: Chief complaint: Chest pain Primary Diagnosis: Disposition Admitted Route of Admission: Date of Admission: Jan Admitting Diagnosis: chest pain/sob Community Care Provider: Confirm Level of Care: NO [facility]AL [facility] ON FILE, AND NO [facility] PCP FOUND FOR ANY LOCATION IN [facility]. ATTEMPTED TO CONTACT PATIENT TO PROVIDE ELIGIBILITY CONTACT INFORMATION- NO ANSWER, LEFT Records r/t this episode of care sent to [facility] for scanning. EXPERT FROM ER DISCHARGE NOTE [...] EMS arrival he was placed on a network liaison which showed SVT. He was administered 4 mg of morphine and a synchronized shock was delivered via EMS and he was restored to normal sinus rhythm. Symptoms resolved with denominational of NSR. Patient then had a syncopal [...] of 2023. Typically receives care at the [place] and follows a shared services and outsourcing manager there with most recent appt in late November. Does not currently have scheduled follow-up with his shared services and outsourcing manager. Would like to find cardiac care outside of the [place]. No previously known hx of DM. Initial [...] 180 mg Capsule,Ext.Rel 24h Degradable /es/ SHYANN LUUN RN REGISTERED NURSE Signed: 03/02/2024 12:16 SHYANN ESCAMILLA [facility]
--- OUTSIDE RECORDS SUMMARY | 2024-08-13 16:49 | XMS_ITS | Clinical Summary ---
Author Organization [facility] Medical Office Building B Address [address] [place] [address] Care Team Providers Care Acid Washer Operator Name Role Phone Administration, Veterans Primary Care Provide r Unavailable Allergies Active Allergy Reactions Criticality Noted Date Comments Atorvastatin Muscle pain Medium 06/14/2015 Pqahwub-Ido-Owg Reductase Inhibitors Muscle pain,Unknown Medium 05/24/2019 Info [...] for pain 30 tablet 12/24/19 24 Active senna-docusate (PERICOLACE) 8.6-50 mg Take 1-2 tablets daily prn for constipation 30 tablet 12/24/19 24 Active ondansetron ODT (ZOFRAN-ODT) 4 mg disintegrating tablet Take 1 tablet (4 mg total) by mouth every 6 (six) hours as needed for nausea or vomiting 10 tablet 12/24/19 24 Active rosuvastatin (CRESTOR) 20 mg tabletIndications: 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 Take 1 tablet (20 mg total) by mouth daily 90 tablet 3 03/18/20 24 Active folic acid (FOLVITE) 1 mg tablet Take 1 tablet (1,000 mcg total) by mouth daily 04/21/20 24 Active calcitRIOL (ROCALTROL) 0.25 mcg capsule Take 1 capsule (0.25 mcg total) by mouth daily 04/21/20 24 Active multivitamin-land title examiner als-lutein (Multivitamin 50 Plus) tablet Take by mouth 04/21/20 24 Active Active Problems Problem Noted Date Diagnosed Date 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 heart without angina pectoris 06/22/2024 NSTEMI (non-ST elevated myocardial infarction) 0 11/24/2023 ARIADNA (acute kidney injury) 11/24/2023 Acute chest pain 11/23/2023 Acute coronary syndrome 11/23/2023 Supraventricular tachycardia 11/23/2023 Atrial fibrillation 11/23/2023 Primary hypertension 11/23/2023 Hyperlipidemia 11/23/2023 HIV (human immunodeficiency virus infection) CKD (chronic kidney disease) 11/23/2023 Elevated liver enzymes 11/23/2023 High anion gap metabolic acidosis 11/23/2023 Lactic acidosis 11/23/2023 Complete tear of right rotator cuff 09/10/2023 Encounters Date Type Department Care Team Description 08/02/2024 Results Follow-Up [facility] Cardiology [address] [place] [address] Medical Office Building 3 [address] [place] [address] Denys Capone MD 07/28/2024 2:00 PM CDT Office Visit [facility] Medical Group Orthopedic and Sports Medicine [address] [place] [phone] Altaf Naidu MD Primary osteoarthritis of left knee (Primary Dx); HIV infection, unspecified symptom status (HCC) 07/28/2024 Telephone [facility] Group Orthopedic and Sports Medicine [address] [place] [phone] Altaf Naidu MD Surgical Clearance 07/28/2024 Orders Only [facility] Medical Group Orthopedic and Sports Medicine [address] [place] [phone] Altaf Naidu MD Pre-op testing (Primary Dx); S/P total knee arthroplasty, left 07/16/2024 Telephone [facility] Cardiology [address] [facility] [address] [place] [phone] Harris Nevarez MD 07/01/2024 Telephone [facility] Orthopedics and Sports Medicine [address] [facility] [address] [place] [phone] Altaf Naidu MD 06/29/2024 3:05 PM DOUBLE CUT OFF SAW OPERATOR Ancillary Procedure [facility] Medical [facility] Imaging at [address] [phone] Bilateral chronic knee pain; Chronic pain of both knees 06/29/2024 3:00 PM DOUBLE CUT OFF SAW OPERATOR Ancillary Procedure [facility] Imaging at [address] [phone] Bilateral chronic knee pain; Chronic pain of both knees 06/29/2024 3:00 PM DOUBLE CUT OFF SAW OPERATOR Office Visit [facility] Orthopedic and Sports Medicine [address] [place] [phone] Una Garcia PA Primary osteoarthritis of both knees (Primary Dx); Chronic pain of both knees 06/29/[address]th [place] [address] [place] [address] Denys Capone MD 06/23/2024 Telephone [facility] Non-Oncology Infusion [address] [place] [phone] Harrsi Nevarez MD 06/22/2024 11:00 AM DOUBLE CUT OFF SAW OPERATOR Office Visit 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 06/22/2024 Telephone [facility] Cardiology [address] [place] [address] 8th [place] [address] [place] [address] Danielle Meek 06/10/2024 1:00 PM DOUBLE CUT OFF SAW OPERATOR Office Visit [facility] Cardiology [address] [place] [address] 8th [place] [address] [place] [address] Denys Capone MD Supraventricular tachycardia; Acute coronary syndrome (HCC) 05/31/2024 Telephone [facility] Orthopedics and Sports Medicine [address] [place] [address] [address] [place] [address] Altaf Naidu MD from Last 3 Months Surgical History Surgery Date Site/Laterality Comments SHOULDER SURGERY Bilateral LEG SURGERY Left Eligio placed below the hip joint SPINE SURGERY Lumbar fusion FOOT SURGERY Right screw in the heel of the foot Medical History Medical History Date Comments Hypertension Sleep apnea Arrhythmia Atrial Fibrillat ion and Hx of V-Tach HIV disease (HCC) HIV + Arthritis Social History Tobacco [...] on file Legal Sex Male 9:53 AM DOUBLE CUT OFF SAW OPERATOR Gender Identity Not on file Sexual Orientation Not on file Obstetrics History Last Filed Vital Signs Vital Sign Reading Time Taken Comments Blood Pressure 167/112 07/28/2024 1:56 PM CDT Pulse 86 07/28/2024 1:56 PM CDT Temperature 36.3 C (97.4 F) 12/24/2023 3:00 PM CDT Respiratory Rate 16 06/29/2024 3:08 PM DOUBLE CUT OFF SAW OPERATOR Oxygen Saturation 95% 06/22/2024 11: 56 AM DOUBLE CUT OFF SAW OPERATOR Inhaled Oxygen Concentration - - Weight 119.9 kg (264 lb 6.4 oz) 07/28/2024 1:56 PM CDT Height 190.5 cm (6' 3 ) 07/28/2024 1:56 PM CDT Body Mass Index 33.05 07/28/2024 1:56 PM CDT Plan of Treatment Upcoming Encounters Date Type Department Care Team (Latest Contact Info) Description 09/17/2024 10:55 AM CDT Hospital Encounter [facility] Electrophysiology Lab 1 [place] [phone] Denys Capone MD [address] [place], [place] [id number] Paroxysmal atrial fibrillation (HCC) 09/17/2024 10:55 AM CDT - 09/17/2024 2:50 PM CDT Surgery [facility] Electrophysiology Lab 1 [place] [phone] Denys Capone MD [address] [place] [id number] ABLATION ATRIAL FIBRILLATION (A-FIB) VIA PULMONARY VEIN ISOLATION [address]112 Health Maintenance Due Date Last Done Comments [...] 08/26/1997 Hepatitis A Vaccines Completed 01/26/2019, 06/11/19 Zoster Vaccine Completed 02/18/2022, 04/03/2021 Influenza Vaccine Completed 05/27/2024, , 02/18/2022, Additional history exists Medical Devices Implanted Type Area Electric Fan Assembler Device Identifier Shelf Expiration Date Model / Serial / Lot Holli Endoscopy [place] Suture Alphavent 4.75mm With 3-Strands 1.4mm Xbraid Tt [id number] - [id number] Implanted:Qty: 1 on 12/24/2023 by Altaf Naidu MD at [facility] Right: Shoulder Holli Endoscopy [id number] 10/23/2024 [id number] / / [id number] [employer] Corkscrew L4.75 Mr Tape Full Thread [place] Suture Biocomposite Sterile Disposable Latex Free [id number] - [id number] Implanted:Qty: 1 on 12/24/2023 by Altaf Naidu MD at [facility] Right: Shoulder [employer] [id number] 08/25/2026 [id number] / / [id number] Procedures Procedure Name Priority Date/Time Associated Diagnosis Comments XR KNEE BILATERAL 4 OR MORE VIEWS Schedule Routine, Read Routine (OP Routine) 06/29/2024 3:01 PM DOUBLE CUT OFF SAW OPERATOR Bilateral chronic knee pain Chronic pain of both knees XR PELVIS 1 OR 2 VIEWS Schedule Routine, Read Routine (OP Routine) 06/29/2024 3:01 PM DOUBLE CUT OFF SAW OPERATOR Bilateral chronic knee pain Chronic pain of both knees ECG 12-LEAD Routine 06/10/2024 2:10 PM DOUBLE CUT OFF SAW OPERATOR Supraventricular tachycardia POCT LIPID PANEL Routine 03/18/2024 2:14 PM DOUBLE CUT OFF SAW OPERATOR Lipid screening URINALYSIS AND REFLEX TO MICROSCOPIC AND CULTURE Routine 11/23/2023 6:08 PM CDT from Last 3 Months or Most Recently Relevant to Health Maintenance Results * XR Knee Bilateral 4 or More Views (06/29/2024 3:01 PM DOUBLE CUT OFF SAW OPERATOR) Anatomical Region Laterality Modality Lower Extremities, Knee Digital Radiography Narrative 07/18/2024 10:48 PM CDT Weightbearing views of the bilateral knee are reviewed and demonstrate no acute fractures or destructive osseous lesions. Tricompartmental degenerative changes present with joint space narrowing, osteophyte formation, and subchondral sclerosis. Ksfb-of-pnmn joint space narrowing is noted medial compartment with associated varus deformity Una TOTH IMG XR PROCEDURES Final Result * XR Pelvis 1 or 2 Views (06/29/2024 3:01 PM DOUBLE CUT OFF SAW OPERATOR) Anatomical Region Laterality Modality Body, Pelvis N/A Digital Radiogra phy Narrative 07/18/2024 10:50 PM CDT Radiographs of the pelvis is reviewed and interpreted. No acute fractures or destructive osseous lesions seen. Postsurgical changes are seen of the left proximal femur and lower lumbar with retained hardware in acceptable position. Moderate degenerative changes are present of the bilateral femoral acetabular joints with joint space narrowing associated osteophyte formation Una TOTH IMG XR PROCEDURES Final Result * ECG 12 lead (06/10/2024 2:10 PM DOUBLE CUT OFF SAW OPERATOR) Denys Capone MD ECG ORDERABLES Final R esult * POCT lipid panel (03/18/2024 2:14 PM DOUBLE CUT OFF SAW OPERATOR) Cholesterol, POC 248 mg/dL HDL, POC 41 mg/dL Triglycerides, POC 161 mg/dL LDL Cholesterol POC 175 mg/dL Chol/HDL Ratio, POC 4.3 Non-HDL Cholesterol, POC 207 mg/dL Cholesterol Total, POC 248 mg/dL Capillary blood 03/18/2024 2 :14 PM DOUBLE CUT OFF SAW OPERATOR us Kerry Joseph NP POINT OF CARE TEST ORDERA ANGELIA Edited Result - Final * (ABNORMAL) Urinalysis [...] tendency for uric acid stone formation. Source: [facility] Current Interpretive Data was last revised on [...] DERABLES Final Result [facility] (LEO) 1 [facility] [place] [address] from Last 3 Months or Most Recently Relevant to Health Maintenance Insurance [place] [place] [address] CARE [facility] Advance Directives For more information, please contact: [phone] * Full Code (Latest Code Status on File) Date Activated Date Inactivated Comments 11/23/2023 4:47 AM 11/24/2023 11:08 PM Care Teams Acid Washer Operator Relationship Specialty Start Date End Date Tiffany Ugarte MD PCP - General Tile Erector 06/01/24
--- OUTSIDE RECORDS SUMMARY | 2024-08-13 16:49 | XMS_ITS | Clinical Summary ---
Author Organization [facility] Address [address] [place] [address] Phone Care Team Providers Care Biochemistry Technologist Name Role Phone Chris Hamlin APRN, JENI [...] BLOOD PRESSURE/HEART 1 Active ergocalciferol (VITAMIN D) 46156 UNIT Capsule TAKE ONE CAPSULE BY MOUTH [...] on file Legal Sex Male 3:38 PM DAMPPROOFER Gender Identity Not on file Sexual Orientation [...] Cologuard 02/25/2012 Immunochemical Fecal Occult Blood 02/25/2012 Zoster Immunization (2 of 2) 05/29/2021 04/03/2021 Influenza Immunization (#1) 12/28/202310/2020, 01/26/2020, 01/26/2019, Additional history exists SARS-COV-2 Immunization ( - season) 2023 07/13/2020 Respiratory Syncytial Virus [...] this topic Medical Devices Implanted Type Area Best Second Jobs Device Identifier Shelf Expiration Date Model / Serial / Lot Quattro Link Knotless [place], 4.5mm Peek [place] Implanted:Qty: 1 on 08/22/2021 by Wilman Tapia MD at [facility] Left: [facility] 01/29/2026 [id number] / [id number] Insurance [facility] Care Teams Biochemistry Technologist Relationship Specialty Start Date End Date Chris Hamlin APRN, JENI [address] [place] [id number] PCP - General Advanced Practice Nurse 07/23/21
--- OUTSIDE RECORDS SUMMARY | 2024-08-13 16:49 | XMS_ITS | Referral Summary ---
Author Organization [facility] Medical Office Building B Address [address] [place] [address] Care Team Providers Care Investor Relations Analyst Name Role Phone Administration, Tiffany ALLEN Primary Care Provide r Unavailable Encounters Date Type Department Care Team Description 08/02/2024 Results Follow-Up [facility] Cardiology [facility] Medical Office Building [address] [place] [address] Denys Capone MD 07/28/2024 Telephone [facility] Medical Group Orthopedic and Sports Medicine [address] [place] [phone] Altaf Naidu MD Surgical Clearance 07/28/2024 Orders Only [facility] Medical [facility] Orthopedic and Sports Medicine [address] [place] [phone] Altaf Naidu MD Pre-op testing (Primary Dx); S/P total knee arthroplasty, left 07/28/2024 2:00 PM CDT Office Visit [facility] Medical [facility] Orthopedic and Sports Medicine [address] [place] [phone] Altaf Naidu MD Primary osteoarthritis of left knee (Primary Dx); HIV infection, unspecified symptom status (HCC) 07/16/2024 Telephone [facility] Medical [facility] Cardiology [address] [place] [address] Harris Nevarez MD 07/01/2024 Telephone [facility] Orthopedics and Sports Medicine [address] [facility] [address] [place] [address] Altaf Naidu MD 06/29/2024 3:05 PM MARINE INSULATOR Ancillary Procedure [facility] Medical Group Imaging at [address] [address] Bilateral chronic knee pain; Chronic pain of both knees 06/29/2024 3:00 PM MARINE INSULATOR Ancillary Procedure [facility] Medical Group Imaging at [address] [phone] Bilateral chronic knee pain; Chronic pain of both knees 06/29/[address] [facility] Cardiology [facility] 8th [place] [address] [place] [address] Denys Capone MD 06/29/2024 3:00 PM MARINE INSULATOR Office Visit [facility] Orthopedic and Sports Medicine [address] [place] [phone] Una Garcia PA Primary osteoarthritis of both knees (Primary Dx); Chronic pain of both knees 06/23/2024 Telephone [facility] Non-Oncology Infusion [address] [place] [address] Harris Nevarez MD 06/22/[address]th [place] [address] [place] [address] Danielle Meek 06/22/2024 11:00 AM MARINE INSULATOR Office Visit [facility] Cardiology [address] [facility] [address] [place] [address] Harris Nevarez MD Supraventricular tachycardia (Primary Dx); Paroxysmal atrial fibrillation (HCC); 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 06/10/2024 1:00 PM MARINE INSULATOR Office Visit [address]th [place] [address] [place] [address] Denys Capone MD Supraventricular tachycardia; Acute coronary syndrome (HCC) 05/31/2024 Telephone [facility] Orthopedics and Sports Medicine [address] [place] [address] [address] [place] [phone] Altaf Naidu MD from Last 3 Months Allergies Active Allergy Reactions Criticality Noted Date Comments Atorvastatin Muscle pain Medium 06/14/2015 Lkevvut-Brj-Xrs Reductase Inhibitors Muscle pain,Unknown Medium 05/24/2019 Info [...] 20 mg tabletIndications: 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 Take 1 tablet (20 mg total) by mouth daily 90 tablet 3 03/18/20 24 Active folic acid (FOLVITE) 1 mg tablet Take 1 tablet (1,000 mcg total) by mouth daily 04/21/20 24 Active calcitRIOL (ROCALTROL) 0.25 mcg capsule Take 1 capsule (0.25 mcg total) by mouth daily 04/21/20 Active 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 als-lutein (Multivitamin 50 Plus) tablet Take by mouth 04/21/20 Active Active Problems Problem Noted Date Diagnosed Date Coronary artery disease invo lving eek coronary artery of eek heart without angina pectoris 06/22/2024 NSTEMI (non-ST [...] on file Legal Sex Male 9:53 AM MARINE INSULATOR Gender Identity Not on file Sexual Orientation Not on file Last Filed Vital Signs Vital Sign Reading Time Taken Comments Blood Pressure 167/112 07/28/2024 1:56 PM CDT Pulse 86 07/28/2024 1:56 PM CDT Temperature 36.3 C (97.4 F) 12/24/2023 3:00 PM CDT Respiratory Rate 16 06/29/2024 3:08 PM MARINE INSULATOR Oxygen Saturation 95% 06/22/2024 11: 56 AM MARINE INSULATOR Inhaled Oxygen Concentration - - Weight 119.9 kg (264 lb 6.4 oz) 07/28/2024 1:56 PM CDT Height 190.5 cm (6' 3 ) 07/28/2024 1:56 PM CDT Body Mass Index 33.05 07/28/2024 1:56 PM CDT Plan of Treatment Upcoming Encounters Date Type Department Care Team (Latest Contact Info) Description 09/17/2024 10:55 AM CDT Hospital Encounter [facility] Electrophysiology Lab 1 [place] [address] Denys Capone MD [address] [place] [address] Paroxysmal atrial fibrillation (HCC) 09/17/2024 10:55 AM CDT - 09/17/2024 2:50 PM CDT Surgery [facility] Electrophysiology Lab 1 [place] [address] Denys Capone MD [address] [place] [address] ABLATION ATRIAL FIBRILLATION (A-FIB) VIA PULMONARY VEIN ISOLATION [address]17 Medical Devices Implanted Type Area Electronics Mechanic Apprentice Device Identifier Shelf Expiration Date Model / Serial / Lot Holli Endoscopy [place] Suture Alphavent 4.75mm With 3-Strands 1.4mm Xbraid Tt [id number] - [id number] Implanted:Qty: 1 on 12/24/2023 by Altaf Naidu MD at [facility] Right: Shoulder Holli Endoscopy [id number] 10/23/2024 [id number] / [id number] [employer] Corkscrew L4.75 Mr Tape Full Thread [place] Suture Biocomposite Sterile Disposable Latex Free [id number] - [id number] Implanted:Qty: 1 on 12/24/2023 by Altaf Naidu MD at [facility] Right: Shoulder [employer] [id number] 08/25/2026 [id number] / / [id number] Procedures Procedure Name Priority Date/Time Associated Diagnosis Comments XR KNEE BILATERAL 4 OR MORE VIEWS Schedule Routine, Read Routine (OP Routine) 06/29/2024 3:01 PM MARINE INSULATOR Bilateral chronic knee pain Chronic pain of both knees XR PELVIS 1 OR 2 VIEWS Schedule Routine, Read Routine (OP Routine) 06/29/2024 3:01 PM MARINE INSULATOR Bilateral chronic knee pain Chronic pain of both knees ECG 12-LEAD Routine 06/10/2024 2:10 PM MARINE INSULATOR Supraventricular tachycardia POCT LIPID PANEL Routine 03/18/2024 2:14 PM MARINE INSULATOR Lipid screening URINALYSIS AND REFLEX TO MICROSCOPIC AND CULTURE Routine 11/23/2023 6:08 PM CDT from Last 3 Months or Most Recently Relevant to Health Maintenance Results * XR Knee Bilateral 4 or More Views (06/29/2024 3:01 PM MARINE INSULATOR) Anatomical Region Laterality Modality Lower Extremities, Knee Digital Radiography Narrative 07/18/2024 10:48 PM CDT Weightbearing views of the bilateral knee are reviewed and demonstrate no acute fractures or destructive osseous lesions. Tricompartmental degenerative changes present with joint space narrowing, osteophyte formation, and subchondral sclerosis. Xhnf-wi-dlph joint space narrowing is noted medial compartment with associated varus deformity Una TOTH IMG XR PROCEDURES Final Result * XR Pelvis 1 or 2 Views (06/29/2024 3:01 PM MARINE INSULATOR) Anatomical Region Laterality Modality Body, Pelvis N/A [...] * ECG 12 lead (06/10/2024 2:10 PM MARINE INSULATOR) Denys Capone MD ECG ORDERABLES Final R esult * POCT lipid panel (03/18/2024 2:14 PM MARINE INSULATOR) Cholesterol, POC 248 mg/dL HDL, POC 41 mg/dL Triglycerides, POC 161 mg/dL LDL Cholesterol POC 175 mg/dL Chol/HDL Ratio, POC 4.3 Non-HDL Cholesterol, POC 207 mg/dL Cholesterol Total, POC 248 mg/dL Capillary blood 03/18/2024 2 :14 PM MARINE INSULATOR Kerry Joseph NP POINT OF CARE TEST [...] tendency for uric acid stone formation. Source: [facility] Current Interpretive Data was last revised on [...] - GENERAL OR DERABLES Final Result [facility] ([facility]O) 1 [facility] [place] [address] from Last 3 Months or Most Recently Relevant to Health Maintenance Insurance [facility] Member Subscriber Plan / Payer (Ef fective 1998-Present) Name:Markell Rodriguez Relation to Subscriber:Self Name:Markell Rodriguez Payer ID:[id number] Group ID:Not on file Type:OTHER [employer] Address: [place] [id number] Advance Directives For more information, please contact: [phone] * Full Code (Latest Code Status on File) Date Activated Date Inactivated Comments 11/23/2023 4:47 AM 11/24/2023 11:08 PM Care Teams Investor Relations Analyst Relationship Specialty Start Date End Date Tiffany Ugarte MD PCP - General Audit Lead 06/01/24
--- OUTSIDE RECORDS SUMMARY | 2024-08-13 16:49 | XMS_ITS | Encounter Summary ---
Author Name [facility] [place] Organization [facility] [place] Address [address] [place] [address] Care Team Providers Care Steam Table Worker Name Role Phone JONATANVIVIENNEFARIBA Primary Care Provider Unavailabl e Selected Encounter This section includes the information on record at [place] for the Encounter. Date/Time Encounter Type Encounter Description Reason Pro vider Source Aug 19, 2023 01:00 PM Outpatient Encounter INFECTIOUS DISEASE IHE Encounter Template Text not used by [place] [...] 2023 01:45 PM AMBUL[facility]ORY - NONE [facility] September 12, 2023 11:00 AM AMBULATORY - NONE [facility] Oct 07, 2023 09:00 AM [facility] NONE [facility] Dec 10, 2023 11:00 AM [facility] Dec 15, 2023 02:00 PM AMBULATORY - MEDICINE [facility] Jan 27, 2024 03:00 PM AMBULATORY - PSYCHIATRY [facility] Feb 03, 2024 01:30 PM AMBULATORY - NONE [facility] Lab Results: +/- 30 days of the encounter This section includes the Chemistry and Hematology Lab Results on record with [place] for the patient. Radiology Reports and Pathology Reports are provided separately, in subsequent sections. Lab Results This section contains the Chemistry/Hematology Results that were resulted 30 days before or 30 daysafter the date of the Encounter. Date/Time Source Result Type Result - Unit Interpretation Reference Range Specimen Type Comment Aug 05, 2023 01:25 PM [facility] VITAMIN D 25-HYDROXY SERUM Specimen Type: SERUM Comment: Deficiency <20, Insufficiency 20-30, Sufficiency 30-100, Toxicity >100 ng/mL Ordering Provider: Lencho PRADO Report Released Date/Time: May 20, 2023 02:36 PM Reporting Lab: [address] [address] Performing Lab: [address] [address] VITAMIN D 25-HYDROXY 47.10 ng/mL 30-100 Aug 05, 2023 01:24 PM [facility] LYMPH SUBSET PANEL 4 ([id number])-[facility] BLOOD Specimen Type: BLOOD Comment: INTERPRETIVE INFORMATION: Lymphocyte Subset 4, Pct. and Ratio, WB The CD4 cells are [place] T-cells expressing both CD3 and CD4. The [...] developed and its performance characteristics determined by [facility]. It has not been cleared or approved by the US Food and Drug Administration. This test was performed in a CLIA certified laboratory and is intended for clinical purposes. Performed By: [facility] [address] [place] [address] Web Development Instructor: Sabino Diaz MD, PhD CLIA Number: [id number] Ordering Provider: OSWALDO EGAN Report Released Date/Time: May 20, 2023 12:00 PM Reporting Lab: [address] [address] Performing Lab: [facility] [address] [facility] [address] ABSOLUTE CD 3 1062 {cells}/uL 570-2400 ABSOLUTE CD 4 HELPER 517 {cells}/uL 430- 1800 ABSOLUTE CD 8 SUPPRESSOR 531 {cells}/uL 210-1200 % CD 3 POS. LYMPH 84 62-87 % CD 4 POS. LYMPH 41 32-64 % CD 8 POS. LYMPH 42 15-46 CD4/CD8 RATIO 0.98 {ratio} 0.80-3.90 LYMPH SUBSET PANEL 4 INFO See Note Aug 05, 2023 01:24 PM [facility] HIV PCR QUANT (PANEL) PLASMA Specimen Type: PLASMA Comment: andre HIV-1 is [...] May 20, 2023 12:00 PM Reporting Lab: [facility] [address] [facility] [address] Performing Lab: [facility] [address] [place] [address] HIV PCR QUANT(copies/mL) <20 {copies}/mL 0-19 HIV PCR (log) <1.30 0.00-1.29 Aug 05, 2023 01:24 PM [facility] CHLAMYDIA T/NEISSERIA G PANEL(PCR) URINE Specimen Type: URINE No comment entered. Ordering Provider: OSWALDO EGAN Report Released Date/Time: May 20, 2023 12:00 PM Reporting Lab: [facility] [address] [facility] [address] Performing Lab: [facility] [address] [facility] [address] NEISSERIA GONORRHOEAE (PCR) NOT DETECTED Negative CHLAMYDIA TRACHOMATIS (PCR) NOT DETECTED Negative Aug 05, 2023 01:24 PM [facility] PHOS PLASMA Sp ecimen Type: PLASMA Comment: [...] May 20, 2023 12:00 PM Reporting Lab: [address] [address] Performing Lab: [place] [phone] PHOS 2.3 mg/dL L 2.4-5.1 Aug 05, 2023 01:24 PM [facility] A1C % BLOOD Specimen Type: BLOOD Comment: Normal: < or = 5.6% Pre-diabetes: 5.7-6.4% Diabetes Mellitus: > or = 6.5% Values obtained from A1C measurements can vary. For typical A1C assays, a reported value of 7.0 could actually be between 6.72 and 7.28 if measured by a reference method. A reported value of 9.0 could actually be between 8.73 and 9.27. Ref: http://www.ngsp.org/CAPdata.asp Ordering Provider: ALEXANDRA PRADO Report Released Date/Time: May 20, 2023 02:36 PM Reporting Lab: [address] [address] Performing Lab: [place] [phone] A1C % 5.5 0.0-5.6 Aug 05, 2023 01:24 PM [facility] LIPID PNL PLASMA Sp ecimen Type: PLASMA [...] May 20, 2023 12:00 PM Reporting Lab: [address] [address] Performing Lab: [address] [address] DIR. HDL 51.2 mg/dL L >=60 TRIGLYCERIDES 147 mg/dL See Comment DIR LDL canc CHOL 245 mg/dL H See Comment LDL (CALCULATED) 164.4 mg/dL H See Comment Aug 05, 2023 01:24 PM [facility] PSA TOTAL EIA SERUM Specimen Type: SERUM Comment: PSA was performed on the Siemens Advanced Battery [employer]sll[employer]th Lab Immunoassay Analyzer. Ordering Provider: ALEXANDRA PRADO Report Released Date/Time: May 20, 2023 02:36 PM Reporting Lab: [address] [address] Performing Lab: [address] [address] PSA TOTAL EIA 0.63 ng/mL 0.00-4.00 Aug 05, 2023 01:24 PM [facility] UA W/ MICRO URINE Specimen Type: URINE Comment: Microscopic not performed when urine is clear and is negative for blood, nitrite, leukocyte esterase, and < 30 mg/dL protein. Ordering Provider: OSWALDO EGAN Report Released Date/Time: May 20, 2023 12:00 PM Reporting Lab: [address] [address] Performing Lab: [address] [address] UA-GLUCOSE Negative mg/dL Negative UA-PROTEIN 10 mg/dL H Negative UA-BILIRUBIN Negative Negative UA-UROBILINOGEN <2.0 mg/dL < 2.0 UA-pH 6.0 5.0-8.0 UA-BLOOD Negative Negative UA-KETONE Negative mg/dL Negative UA-NITRITE Negative Negative UA-LEUKOCYTES Negative Negative UA-CLARITY Clear Clear UA-SPECIFIC GRAVITY 1.021 1.005-1.030 UA-COLOR Yellow Yellow Aug 05, 2023 01:24 PM [facility] THYROID CASCADE PANEL SERUM Specimen Type: SE RUM Comment: PSA was performed on the Siemens Advanced [employer] Lab Immunoassay Analyzer. Ordering Provider: ALEXANDRA PRADO Report Released Date/Time: May 20, 2023 02:36 PM Reporting Lab: [address] [address] Performing Lab: [address] [address] TSH3 ULTRA EIA 2.474 u[IU]/mL 0.550-4.78 0 Aug 05, 2023 01:24 PM [facility] COMPREHENSIVE PNL PLASMA Specimen Type : PLASMA [...] May 20, 2023 12:00 PM Reporting Lab: [address] [address] Performing Lab: [address] [address] ANION GAP 9 mmol/L 5-15 EGFR 77 [...] mg/dL 0.67-1.17 Aug 05, 2023 01:24 PM [facility] CBC W/DIFF BLOOD S pecimen Type: BLOOD No comment entered. Ordering Provider: OSWALDO EGAN Report Released Date/Time: May 20, 2023 12:00 PM Reporting Lab: [address] [address] Performing Lab: [address] [address] WBC 5.5 10*3/uL 4.0-11.0 RBC 4.99 10*6/uL [...] 10*3/uL 0-0.012 Aug 05, 2023 01:24 PM [facility] URINE ALBUMIN/CREAT (RAND URINE) URINE Specim en Type: URINE No comment entered. Ordering Provider: ALEXANDRA PRADO Report Released Date/Time: May 20, 2023 02:36 PM Reporting Lab: [facility] [address] [facility] [address] Performing Lab: [facility] [address] [facility] [address] URINE ALBUMIN(RAND URINE) 1.2 mg/dL <2.0 CREAT(RNDM [...] 31, 2023 ADVANCE DIRECTIVE DISCUSSION Martin [facility] Radiology Reports: +/- 30 days of [...] the Encounter. The data comes from all [place] treatment facilities. Date/Time Radiology Report Provider Source Jul 29, 2023 03:40 PM OUTSIDE STUDY GENE RAL RAD: LALI SUTHERLAND [id number] -[id number] M Exm Date: JUL 29, 2023@15:40 Req Phys: FRANKY JOHNSON Pat Loc: [facility] NAYA BARTON MD (Req'g Loc) Img Loc: OUTSIDE RADIOLOGY IMPORT EXAM Service: Unknown (Case [id number] COMPLETE) OUTSIDE STUDY GENERAL RAD (RAD Detailed) CPT:02001 Reason for Study: Exam imported from outside [...] file, description: X SHOULDER AXILLARY [facility] Address: [address] [place] [id number] Report Status: Electronically Filed Date Reported: SEPTEMBER 02, 2023 Report: This procedure was performed outside of the [place]. If the images and associated report were provided, they can be viewed in mySchoolNotebook and/or [employer] PACS System. Impression: This procedure was performed outside of the [facility]. If the images and associated report were provided, they can be viewed in mySchoolNotebook and/or [employer]iq PACS System. VERIFIED BY: / TYRON CRAWFORD
--- OUTSIDE RECORDS SUMMARY | 2024-08-13 16:49 | XMS_ITS | Encounter Summary ---
Author Organization [facility] Address [facility] [place] [address] Care Team Providers Care Assistant Commissioner Name Role Phone Azucena, Concepcion Martin NP Unavailable Unavailable Kevin Ontiveros MD Primary Care Provider [phone] Kevin Ontiveros MD Unavailable [phone] Gregory Hamlin Unavailable + [phone] Chris Hamlin NP Primary Care Provider Arcadio Gilmore DO Unavailable [phone] Enzo Gutierrez MD Unavailable Encounter Details Date Type Department Care Team (Late st Contact Info) Description 05/04/2019 Abstract [facility] [address] [place] [address] Pool Ragland MD Social History Tobacco Use Types Packs/Day Years Used Date Smoking Tobacco: Former Cigarettes 1 30 0 09/30/1981 - 10/01/2011 Smokeless Tobacco: Former Chew Quit: 2016 Alcohol Use Standard Drinks/Week Comments Yes 0 (1 standard drink = 0.6 oz pur e alcohol) rarely Sex and Gender Information Value Date Recorded Sex Assigned at Not on file 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 Gender Identity Male 05/30/2021 2:32 PM [employer] Sexual Orientation Not on file documented as of this encounter Plan of Treatment Not on file documented as of this encounter Procedures Procedure Name Priority Date/Time Associated Diagnosis Comments CMP (OUTSIDE LAB) Routine 05/03/2019 5:1 5 PM [employer] CBC W/DIFF AUTOMATED Routine 05/03/2019 5:15 PM [employer] MAGNESIUM (OUTSIDE LAB) Routine 03/06/2019 3:20 PM [employer] THYROID PANEL Routine 03/06/2019 documented in this encounter Results * (ABNORMAL) CMP (OUTSIDE LAB) (05/03/2019 5:15 PM [employer]) SODIUM S/P/B 140 136 - 145 POTASSIUM [...] 23 0 - 100 05/03/2019 5:15 PM [employer] us Doc [facility] Abstract LAB-OUTSIDE/ABSTRACTED Final Result * (ABNORMAL) CBC W/DIFF AUTOMATED (05/03/2019 5:15 PM [employer]) WBC 5.2 4.0 - 10.8 RBC 4.64 [...] ABS. BASOPHILS 0.1 0.0 - 0.5 05/03/2019 5:1 5 PM [employer] us Doc [facility] Abstract LABORATORY Final Result * MAGNESIUM (OUTSIDE LAB) (03/06/2019 3:20 PM [employer]) MAGNESIUM 1.9 03/06/2019 3:20 PM [employer] us Doc [facility] Abstract LAB-OUTSIDE/ABSTRACTED Final Result [...] as of this encounter Care Teams Assistant Commissioner Relationship Specialty Start Date End Date Kevin Ontiveros MD [address] [place] [address] PCP - General FAMILY PRACTICE 12/25/17 04/07/22 Kevin Ontiveros MD [address] [place] [address] PCP - [place] PROVIDER FAMILY PRACTICE 12/25/17 04/07/22 Chris Hamlin NP [address], [place] [address] PCP - General NURSE PRACTITIONER 04/08/22 Concepcion Zeng SHUTTLE BUGGY OPERATOR Referring Physician CARDIOVASCULAR DISEASE 10/09/17 Gregory Hamlin PA [address] [place] [address] PHYSICIAN GUIDE PLANT 01/17/22 Arcadio Gilmore DO [address] [place], [place] [address], [place] [address] Consulting Physician CARDIOVASCULAR DISEASE 05/30/22 Enzo Gutierrez MD [facility] [address] [facility] [place] [address] Consulting Physician INTERVENTIONAL CARDIOLOGY 11/21/22 documented as of this encounter
--- OUTSIDE RECORDS SUMMARY | 2024-08-13 16:49 | XMS_ITS | Encounter Summary ---
Author Name [facility] [place] Organization [facility] [place] Address [address] [place] [address] Care Team Providers Care Net Developer Programmer Name Role Phone FARIBA CHEUNG Primary Care Provider Unavailabl e Selected Encounter This section includes the information on record at [place] for the Encounter. Date/Time Encounter Type Encounter Description Reason Pro vider Source Apr 08, 2024 01:34 PM Outpatient Encounter GENERAL INTERNAL MEDICINE IHE Encounter Template Text not used by [place] Plan of Treatment: Future Appointments (+ 6 months) and Future Tests (+/- 45 days) The Plan of Treatment section includes future care activities for the patient from all [place] treatmentfacilities. This section includes future appointments and future orders which are active, pending or scheduled. Future Appointments This section includes appointments that were scheduled to occur 6 months from the date of the Encounter, up to a maximum of 20 appointments. The data comes from all [place] treatment facilities. Appointment Date/Time Appointment Type Appointme nt Facility Name Apr 14, 2024 01:30 PM AMBULATORY - NONE [facility] May 11, 2024 01:30 PM AMBULATORY - NONE [facility] May 27, 2024 02:00 PM AMBULATORY - MEDICINE [facility] May 27, 2024 02:40 PM AMBULATORY - NONE [facility] Jun 10, 2024 01:05 PM [facility]ONE [facility] Jun 10, 2024 01:20 PM [facility]ONE [facility] Jun 29, 2024 03:00 PM [facility] NONE [facility] Jun 29, 2024 03:15 PM [facility] - NONE [facility] Oct 05, 2024 01:00 PM AMBULATORY - NONE [facility] Lab Results: +/- 30 days of the encounter This section includes the Chemistry and Hematology Lab Results on record with [place] for the patient. Radiology Reports and Pathology Reports are provided separately, in subsequent sections. Lab Results This section contains the Chemistry/Hematology Results that were resulted 30 days before or 30 daysafter the date of the Encounter. Date/Time Source Result Type Result - Unit Interpretation Reference Range Specimen Type Comment Mar 30, 2024 01:37 PM [facility] HIV PCR QUANT (PANEL) PLASMA Specimen [...] 2024 08:39 AM Reporting Lab: [facility] [address] [facility] [address] Performing Lab: [facility] [address] [place] [address] HIV PCR QUANT(copies/mL) <20 {copies}/mL 0-19 HIV PCR (log) <1.30 0.00-1.29 Mar 30, 2024 01:37 PM [facility] LYMPH SUBSET PANEL 4 ([id number])-[facility] BLOOD Specimen Type: BLOOD Comment: INTERPRETIVE INFORMATION: Lymphocyte Subset 4, Pct. and Ratio, WB The CD4 cells are [place] T-cells expressing both CD3 and CD4. The [...] developed and its performance characteristics determined by [facility]. It has not been cleared or approved by the US Food and Drug Administration. This test was performed in a CLIA certified laboratory and is intended for clinical purposes. Performed By: [address] [address] Tool Repairer Bench: Sabino Diaz MD, PhD CLIA Number: [id number] Ordering Provider: OSWALDO EGAN Report Released Date/Time: Mar 12, 2024 08:39 AM Reporting Lab: [address] [address] Performing Lab: [facility] [address] [facility] [address] ABSOLUTE CD 3 1191 {cells}/uL 570-2400 ABSOLUTE CD 4 HELPER 634 {cells}/uL 430- 1800 ABSOLUTE CD 8 SUPPRESSOR 557 {cells}/uL 210-1200 % CD 3 POS. LYMPH 84 62-87 % CD 4 POS. LYMPH 45 32-64 % CD 8 POS. LYMPH 39 15-46 CD4/CD8 RATIO 1.15 {ratio} 0.80-3.90 LYMPH SUBSET PANEL 4 INFO See Note Mar 30, 2024 01:37 PM [facility] PHOS PLASMA Sp ecimen Type: PLASMA [...] Mar 12, 2024 08:39 AM Reporting Lab: [address] [address] Performing Lab: [address] [address] PHOS 2.9 mg/dL 2.4-5.1 Mar 30, 2024 01:37 PM [facility] VITAMIN D 25-HYDROXY SERUM Specimen T ype: SERUM Comment: Deficiency <20, Insufficiency 20-30, Sufficiency 30-100, Toxicity >100 ng/mL Ordering Provider: OSWALDO EGAN Report Released Date/Time: Mar 12, 2024 08:39 AM Reporting Lab: [address] [address] Performing Lab: [address] [address] VITAMIN D 25-HYDROXY 48.30 ng/mL 30-100 Mar 30, 2024 01:37 PM [facility] LIPID PNL PLASMA Sp ecimen Type: [...] -Very High: >=190 mg/dL Ordering Provider: OSWALDO EAGN Report Released Date/Time: Mar 12, 2024 08:39 AM Reporting Lab: [address] [address] Performing Lab: [address] [address] DIR. HDL 53 mg/dL L >=60 TRIGLYCERIDES 177 mg/dL H See Comment DIR LDL canc CHOL 245 mg/dL H See Comment LDL (CALCULATED) 157 mg/dL H See Comment Mar 30, 2024 01:37 PM [facility] COMPREHENSIVE PNL PLASMA Specimen Type : [...] Mar 12, 2024 08:39 AM Reporting Lab: [address] [address] Performing Lab: [place] [phone] ANION GAP 7 mmol/L 5-15 EGFR 62 [...] Mar 30, 2024 01:37 PM [facility] CBC W/DIFF BLOOD S pecimen Type: BLOOD No comment entered. Ordering Provider: OSWALDO EGAN Report Released Date/Time: Mar 12, 2024 08:39 AM Reporting Lab: [address] [address] Performing Lab: [address] [address] WBC 6.2 10*3/uL 4.0-11.0 RBC 4.94 10*6/uL [...] ALL of a patient's completed or amended [place] Advance and Rescinded Directives. The entries below indicate that a directive exists for the patient, but an actual copy is not included with this document. The data comes from all [place] facilities. Date Advance Directives Provider Source Dec 31, 2023 ADVANCE DIRECTIVE DISCUSSION Martin [facility] Encounter Notes: All associated encounter notes [...] Facility: [facility] Method of Contact: Notified from [facility] worklist Notification ID: [id number] [facility] Referral #: [id number] [facility] Name: Hospital: [facility] Address: [address] City: [place] State: [place] Zip Code: [address] Community Facility Point of Contact: Name: SAWYER LAGOS Chief complaint: chest pain Primary Diagnosis: Disposition Discharged Date of discharge: Mar Discharge to home Records req'd by fax. Status: Closed - Approved for 1703 /danny SCOTT ADVANCED PROOF INSPECTOR Signed: 04/08/2024 13:38 04/12/2024 ADDENDUM STATUS: COMPLETED Records r/t this episode of care sent to [facility] for scanning. /danny SCOTT ADVANCED PROOF INSPECTOR Signed: 04/12/2024 16:56 AARTI SCOTT [facility]
--- OUTSIDE RECORDS SUMMARY | 2024-08-13 16:49 | XMS_ITS | Encounter Summary ---
Author Organization [facility] Address [facility] [place] [address] Care Team Providers Care Belt Maker Name Role Phone Azucena, Concepcion Martin NP Unavailable Unavailable Kevin Ontiveros MD Primary Care Provider [phone] Kevin Ontiveros MD Unavailable [phone] Gregory Hamlin Unavailable + [phone] Chris Hamlin NP Primary Care Provider Arcadio Gilmore DO Unavailable [phone] Enzo Gutierrez MD Unavailable Encounter Details Date Type Department Care Team (Late st Contact Info) Description 07/09/2019 [facility] [address] [place] [address] Pool Ragland MD Social History Tobacco Use [...] file Legal 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 Gender Identity Male 05/30/2021 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 Sexual Orientation Not on file documented as [...] encounter Visit Diagnoses Diagnosis SVT (supraventricular tachycardia) (HHS/HCC) Other specified cardiac dysrhythmias documented in this encounter Additional Health Concerns Infection Onset Date Last Indicated Resolved Time COVID-19 Rule Out 10/29/2019 10/29/2019 10/31/2019 11:25 AM CDT COVID-19 Rule Out 11/16/2019 11/16/2019 11/17/2019 6:05 PM CDT COVID-19 Rule Out 07/31/2021 07/31/2021 07/31/2021 9:01 PM CDT documented as of this encounter Care Teams Belt Maker Relationship Specialty Start Date End Date Kevin Ontiveros MD [address] [place] [address] PCP - General FAMILY PRACTICE 12/25/17 04/07/22 Kevin Ontiveros MD [address] [place] [address] PCP - [place] PROVIDER FAMILY PRACTICE 12/25/17 04/07/22 Chris Hamlin NP [address] [place] [address] [address], [place] [address] PCP - General NURSE PRACTITIONER 04/08/22 Concepcion Zeng NP Referring Physician CARDIOVASCULAR DISEASE 10/09/17 Gregory Hamlin PA [address] [place] [address] PHYSICIAN CLOTH STRETCHER 01/17/22 Arcadio Gilmore DO [address] [place], [place] [address] Consulting Physician CARDIOVASCULAR DISEASE 05/30/22 Enzo Gutierrez MD [facility] [address] [facility] [place] [address] Consulting Physician INTERVENTIONAL CARDIOLOGY 11/21/22 documented as of this encounter
--- OUTSIDE RECORDS SUMMARY | 2024-08-13 16:49 | XMS_ITS | Continuity of Care Document ---
Author Name [facility] Organization [facility] Care Team Providers Care Design Printer Balloon Name Role Phone [facility] Unavailable Unavailable Problems Combined list of problems from Department of Defense and Veterans Affairs facilities. It does not include entries that were removed or entered in error. Problem Status Onset Date Problem Type Date of Resolution Comments Source Arthralgia of the ankle and/or foot Active Condition [facility] Atrial fibrillation Active Condition Dec 31, 2017 Entered By: DEBI CUENCA Comment: S/P ablation 12/25/2017Jun 2018 Entered By: SRINI MAGALLANES Comment: followed by [facility] [facility] Benign essential hypertension Active Condition [facility] Cervicalgia Active Condition [facility] Chronic cough Active Condition [facility] Chronic kidney disease stage 3 Active Condition Oct 15, 2018 Entered By: SRINI MAGALLANES Comment: avoids NSAIDS [facility] Chronic Low Back Pain (SCT 481883) Active Condition [facility] Diverticulitis Active Condition Jun Entered By: SRINI MAGALLANES Comment: 06/25/18 colonoscopy, bx pendingMay 2018 Entered By: JAVON SEYMOUR Comment: 09/08/18 Flex sig, biopsy--benig n tissue, repeat 2 yr [facility] Dysphagia Active Condition [facility] Family social history Active Condition Oct 15, 2018 Entered By: SRINI MAGALLANES Comment: father had MO, smoker, in 50'sJun 2018 Entered By: SRINI MAGALLANES Comment: brother with CVA at age 60Jun 2018 Entered By: SRINI MAGALLANES Comment: 1/2 brother with MO [facility] Gastroesophageal reflux disease Active Condition [facility] H/O: surgery Active Condition Oct 15, 2018 Entered By: SRINI MAGALLANES Comment: left hip fracture 1982, fall, in traction for monthJun 2018 Entered By: SRINI MAGALLANES Comment: miriam in left upper femur, 2012 following fractureOct 15, 2018 Entered By: SRINI MAGALLANES Comment: lumbar fusion, 1999Oct 15, 2018 Entered By: SRINI MAGALLANES Comment: ablation 01/13 for atrial fib [facility] HIV - Human Immunodeficiency Virus Infection (SCT [id number]) Active Condition [facility] Hyperlipidemia Active Condition [facility] Long-term current use of anticoagulant [facility] Obesity Active Condition [facility] Obstructive sleep apnea syndrome Active Condition Apr 29, 2016 Entered By: RUTH WHITEHEAD Comment: split night 04/23/16: AHI 11.8/hr, 82% low sat; 5-14cwp [facility] Osteoarthritis of knee Active Condition [facility] Osteoporosis Active Condition Oct 15, [...] MAGALLANES Comment: normal Vit D on replacement [facility] Pain of joint of knee Active Condition [facility] Panic attack Active Condition [facility] Primary subtalar osteoarthritis Active Condition [facility] Sensorineural hearing loss, bilateral [facility] Shoulder pain Active Condition [facility] Social history baseline finding Active Condition Oct 15 9 Entered By: SIRNI MAGALLANES Comment: marriedOct 15, 2018 Entered By: SRINI MAGALLANES 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, 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 Entered By: SRINI MAGALLANES Comment: [employer] 80-83, no combatJun 2018 Entered By: SRINI MAGALLANES Comment: quit smoking 2018 Entered By: SRINI MAGALLANES Comment: minimal etoh [facility] Spinal Stenosis of Lumbar Region (SCT 71089741) Active Condition [facility] TEST RESULTS Active Condition Oct 14, 2018 Entered By: SRINI MAGALLANES Comment: 09/13 colonoscopy normal, repeat 2 years per GI noteJun 2018 Entered By: SRINI MAGALLANES Comment: 10/05/18 bone density, right hip normal, will continue to follow [facility] Thrombocytopenia (SCT [id number]) Active Condition [facility] Tinnitus Active Condition [facility] Vitamin D deficiency Active Condition [facility] Ankle pain Inactive Condition 05/01/2017 [facility] Elevated blood pressure Inactive Condition 05/01/2017 [facility] Hearing loss Inactive Condition 05/01/2017 [facility] Palpitations Inactive Condition 05/01/2017 [facility] Syncope Inactive Condition 05/01/2017 [facility] Diagnosis: ICD-10-CM M25.569 Pain in unspecified knee Active Diagnosis [facility] Diagnosis: ICD-10-CM N17.9 Acute kidney failure, unspecified Active Diagnosis [facility] Diagnosis: ICD-10-CM B20 Human immunodeficiency virus [HIV] disease Active [facility] Diagnosis: ICD-10-CM I48.0 Paroxysmal atrial fibrillation Active Diagnosis [facility] Diagnosis: ICD-10-CM M75.101 Unsp rotatr-cuff tear/ruptr of right shoulder, not trauma Active Diagnosis [facility] Diagnosis: ICD-10-CM Z01.810 Encounter for preprocedural cardiovascular examination Active Diagnosis [facility] Diagnosis: ICD-10-CM F32.5 Major depressive disorder, single episode, in full remission Active Diagnosis [facility] Diagnosis: ICD-10-CM F33.41 Major depressive disorder, recurrent, in partial remission Active Diagnosis [facility] Diagnosis: ICD-10-CM Z79.01 snf (current) use of anticoagulants Active Diagnosis [facility] Medications Combined list of outpatient medications from Department of Defense and [facility] facilities.Medications provided include 1) outpatient medications from the last 15 months, and 2) patient-reported medications. Medication Details Route Status Patient Instructions Prescription Expires Prescription Number Last Dispense Date Ordering Provider Order Date Order Qty Source ACETAMINOPH EN 500MG TAB TAKE TWO TABLETS BY MOUTH THREE TIMES A DAY NEEDED ORAL ACTIVE HIEN CUENCA 2017 [facility] APIXABAN 5MG TAB TAKE ONE TABLET BY MOUTH TWICE A DAY ORAL HOLD 03/13/2025 [id number] OFELIA CHEUNG NDERichard 2023 180 [facility] APIXABAN 5MG TAB TAKE ONE TABLET BY MOUTH TWICE A DAY ORAL DISCONT INUED 04/20/2024 [id number] DRAKE DIAS 2022 180 [facility] ASPIRIN 81MG TAB,EC TAKE ONE TABLET BY MOUTH EVERY DAY ORAL ACTIVE 04/22/2025 [id number] OFELIA CHEUNG NDER 2023 120 [facility] ASPIRIN 81MG TAB,EC TAKE ONE TABLET BY MOUTH EVERY DAY ORAL ACTIVE HIEN CUENCA 2017 [facility] ATORVASTATI N CA 80MG TAB TAKE ONE TABLET BY MOUTH AT BEDTIME CALL YOUR PROVIDER IF YOU HAVE MUSCLE PAIN, TENDERNE SS OR WEAKNESS ORAL ACTIVE 04/22/2025 [id number] OFELIA CHEUNG NDER 2023 90 [facility] BICTEGRAVIR 50MG/EMTRIC ITABINE 200MG/TENOF OVIR AF 25MG TAB TAKE 1 TABLET BY MOUTH EVERY DAY FOR INFECTIO N DO NOT MIX WITH MINERALS /MVI FOR ADEQUATE ABSORPTI ON. FOR INFECTIO N DO NOT MIX WITH MINERALS /MVI FOR ADEQUATE ABSORPTI ON. ORAL HOLD 02/25/2025 [id number] OSWALDO EGAN 2023 90 [facility] BICTEGRAVIR 50MG/EMTRIC ITABINE 200MG/TENOF OVIR AF 25MG TAB TAKE 1 TABLET BY MOUTH EVERY DAY FOR INFECTIO N DO NOT MIX WITH MINERALS /MVI FOR ADEQUATE ABSORPTI ON. FOR INFECTIO N DO NOT MIX WITH MINERALS /MVI FOR ADEQUATE ABSORPTI ON. ORAL DISCONT INUED 08/08/2024 [id number] JULISAINWHViola 2023 90 [facility] BUSPIRONE HCL 5MG TAB TAKE ONE TABLET BY MOUTH TWICE A DAY FOR ANXIETY ORAL ACTIVE 09/12/2024 [id number] Omar MARCOS 2023 180 [facility] BUSPIRONE HCL 5MG TAB TAKE ONE TABLET BY MOUTH TWICE A DAY FOR ANXIETY ORAL DISCONT INUED BY PROVIDE R 06/12/2024 [id number] Omar MARCOS 2023 120 [facility] BUSPIRONE HCL 5MG TAB TAKE ONE TABLET BY MOUTH TWICE A DAY FOR ANXIETY ORAL DISCONT INUED 05/15/2024 [id number] LUIS DIAS [facility] 2023 120 [facility] CALCITRIOL 0.25MCG CAP TAKE ONE CAPSULE BY MOUTH DAILY ORAL ACTIVE 04/22/2025 [id number] OFELIA CHEUNG NDER 2023 90 [facility] DICLOFENAC NA 1% GEL,TOP APPLY 4 GRAMS TOPICALL Y FOUR TIMES A DAY -DON'T EXCEED 16 GRAMS DAILY TO ANY AFFECTED LEG AREA. DON'T EXCEED 8 GRAMS DAILY TO ANY AFFECTED ARM AREA. DON'T EXCEED A TOTAL DOSE OF 32 GRAMS DAILY OVER ALL AREAS. *USE DOSING CARD TO MEASURE DOSE.* TOPICA L HOLD 05/28/2025 [id number] ANA,CRYST AL L 2024 100 [facility] DILTIAZEM (EQV-TIAZAC AB4) 240MG 24HR CAP TAKE ONE CAPSULE BY MOUTH EVERY DAY FOR BLOOD PRESSURE /HEART ORAL 05/15/2024 [id number] LUIS DIAS [facility] 2023 30 [facility] ERGOCALCIFE ROL 1,250MCG (50,000UNIT ) CAP TAKE ONE CAPSULE BY MOUTH ONCE WEEKLY ON FRIDAY FOR VITAMIN D- SUPPLEME NT ORAL DISCONT INUED BY PROVIDE R 12/26/2024 [id number] 4 LEONA HOBBS 2023 13 [facility] ERGOCALCIFE ROL 1,250MCG (50,000UNIT ) CAP TAKE ONE CAPSULE BY MOUTH ONCE WEEKLY ON FRIDAY FOR VITAMIN D- SUPPLEME NT ORAL DISCONT INUED 01/07/2024 [id number] LEONA HOBBS 2022 13 [facility] FOLIC ACID 1MG TAB TAKE ONE TABLET BY MOUTH DAILY ORAL ACTIVE 04/22/2025 [id number] 5 OFELIA CHEUNG NDER 2023 90 [facility] METOPROLOL SUCCINATE 50MG TAB,SA TAKE ONE TABLET BY MOUTH NIGHTLY FOR BLOOD PRESSURE ORAL HOLD 12/18/2024 [id number] LEONA HOBBS 2023 90 [facility] METOPROLOL SUCCINATE 50MG TAB,SA TAKE ONE TABLET BY MOUTH NIGHTLY FOR BLOOD PRESSURE ORAL DISCONT INUED 11/14/2023 [id number] LEONA HOBBS 2022 90 [facility] MULTIVITAMI NS W/MINERALS CAP/TAB TAKE 1 CAP/TAB BY MOUTH DAILY ORAL ACTIVE 04/22/2025 [id number] 5 OFELIA CHEUNG NDERichard 2023 100 [facility] PANTOPRAZOL E NA 40MG TAB,EC TAKE ONE TABLET BY MOUTH EVERY DAY ORAL HOLD 12/18/2024 [id number] 5 LEONA HOBBS 2023 90 [facility] PANTOPRAZOL E NA 40MG TAB,EC TAKE ONE TABLET BY MOUTH EVERY DAY ORAL DISCONT INUED 11/14/2023 [id number] 4 LEONA HOBBS 2022 90 [facility] POTASSIUM CHLORIDE 20MEQ TAB,SA (DISPERSIBL E) TAKE ONE TABLET BY MOUTH DAILY FOR YAHAIRA Salazar SUPPLEME NT ORAL 05/08/2024 [id number] 4 LEONA HOBBS 2023 90 [facility] ROSUVASTATI N CA 20MG TAB TAKE ONE TABLET BY MOUTH EVERY DAY CALL YOUR PROVIDER IF YOU HAVE MUSCLE PAIN, TENDERNE SS OR WEAKNESS ORAL DISCONT INUED BY PROVIDE R 03/19/2025 [id number] VIRGINIE,CHR ISTINE KATELYNN 2023 90 [facility] TAMSULOSIN HCL 0.4MG CAP TAKE ONE CAPSULE BY MOUTH EVERY EVENING TAKE 30 MINUTES AFTER A MEAL ORAL ACTIVE 10/01/2024 [id number] FRANKY JOHNSON 2023 90 [facility] TAMSULOSIN HCL 0.4MG CAP TAKE ONE CAPSULE BY MOUTH EVERY EVENING TAKE 30 MINUTES AFTER A MEAL ORAL DISCONT INUED (EDIT) 05/15/2024 [id number] DRAKE DIAS 2023 30 [facility] THIAMINE 100MG TAB TAKE ONE TABLET BY MOUTH DAILY ORAL ACTIVE 04/22/2025 [id number] OFELIA CHEUNG NDER 2023 100 [facility] VENLAFAXINE HCL 150MG 24HR CAP,SA TAKE ONE CAPSULE BY MOUTH DAILY FOR DEPRESSI ON WITH FOOD - MOOD ORAL ACTIVE 12/26/2024 [id number] 5 Omar MARCOS IGISHA 2023 90 [facility] VENLAFAXINE HCL 150MG 24HR CAP,SA TAKE ONE CAPSULE BY MOUTH DAILY FOR DEPRESSI ON WITH FOOD - MOOD ORAL DISCONT INUED 09/12/2024 [id number] Omar MARCOS IGISHA 2023 90 [facility] VENLAFAXINE HCL 150MG 24HR CAP,SA TAKE ONE CAPSULE BY MOUTH DAILY WITH FOOD - MOOD ORAL DISCONT INUED BY PROVIDE R 06/12/2024 [id number] Omar MARCOS IGISHA 2023 60 [facility] Allergies, Adverse Reactions, Alerts Combined list of allergies from Department of Defense and Veterans Affairs facilities. It does not include entries that were removed or entered in error. Substance Category Reaction Severity Reaction type Status Date Reported Comments Source ATORVASTATIN Propensity to adverse reactions to drug (finding) Muscle pain active 6 [facility] ATORVASTATIN Propensity to adverse reactions to drug (finding) active 7 [facility] PRAVASTATIN Propensity to adverse reactions to drug (finding) Muscle pain active 8 [facility] Immunizations Combined list of available immunizations from the Department of Defense and Veterans Affairs facilities. Immunization Series Date Given Administered By Site Reaction Lot Number CVX Code Drug Mill Beam Fitter Status Comments Source INFLUENZA, SPLIT VIRUS, TRIVALENT, PF 2024 MELITA MYERS KATELYNN LEFT DELTO ID [id number] 140 complet ed Completed Series, ADMINISTE [facility] AT [facility] TDAP 2024 MELITA MYERS RIGHT DELTO ID [id number] 115 complet ed Completed Series, ADMINISTE [facility] AT [facility] INFLUENZA, INJECTABLE, QUADRIVALENT, PRESERVATIVE FREE 2023 RENNY PERKINS LEFT DELTO ID [id number] 150 complet ed ADMINISTE [facility] AT [facility] INFLUENZA, INJECTABLE, QUADRIVALENT, PRESERVATIVE FREE 2021 150 complet ed [facility] ZOSTER RECOMBINANT 2 2021 187 complet ed [facility] INFLUENZA, INJECTABLE, QUADRIVALENT, PRESERVATIVE FREE 2020 150 complet ed [facility] ZOSTER RECOMBINANT 1 2020 187 complet ed [facility] COVID-19 (SHANNAN), VECTOR-NR, [id number], PF, 0.5 ML 1 2020 212 complet ed HISTORICA L INFORMATI ON - FROM OTHER REGISTRY, [facility] INFLUENZA, INJECTABLE, QUADRIVALENT, PRESERVATIVE FREE 2019 150 complet ed [facility] HEP A, ADULT 2 2018 52 complet ed [facility] INFLUENZA, INJECTABLE, QUADRIVALENT, PRESERVATIVE FREE 2018 150 complet ed [facility] MENINGOCOCCAL [id number] 2018 114 complet ed [facility] HEP A, ADULT 1 2018 52 complet ed [facility] INFLUENZA, INJECTABLE, QUADRIVALENT, PRESERVATIVE FREE 2017 150 complet ed [facility] INFLUENZA, SEASONAL, INJECTABLE, PRESERVATIVE FREE 2016 140 complet ed Right Deltoid 0.5ml IM [facility] INFLUENZA, SEASONAL, INJECTABLE, PRESERVATIVE FREE 2015 140 complet ed Right Deltoid 0.5ml IM [facility] INFLUENZA, UNSPECIFIED FORMULATION 2015 88 complet ed [facility] INFLUENZA, UNSPECIFIED FORMULATION 2015 88 complet ed Right Deltoid 0.5ml IM [facility] PNEUMOCOCCAL POLYSACCHARID E [id number] 2015 33 complet ed [facility] PNEUMOCOCCAL PCV13 (HISTORICAL) 2014 133 complet ed [facility] INFLUENZA, UNSPECIFIED FORMULATION 2013 88 complet ed Right Deltoid 0.5ml IM [facility] TDAP 2013 115 complet ed Right Deltoid 0.5ml IM [facility] INFLUENZA, UNSPECIFIED FORMULATION 2001 88 complet ed Left Deltoid 0.5ml IM [facility] PNEUMOCOCCAL POLYSACCHARID E PPV23 2001 33 complet ed Right Deltoid [facility] INFLUENZA, UNSPECIFIED FORMULATION 1998 88 complet ed [facility] TD(ADULT) UNSPECIFIED FORMULATION 1997 139 complet ed [facility] Results Combined list of recent [...] May 11, 2024 04:06 PM Reporting Lab: [facility] [address] [facility] [address] Performing Lab: [facility] [address] [place] [address] [facility] VITAMIN D 25-HYDROX Y 25-HYDROXYV ITAMIN D3 [MASS/VOLUM E] IN SERUM OR PLASMA 51.70 ng/mL 30 - 100 05/27 Specimen Type: SERUM Comment: Deficiency <20, Insufficien cy 20-30, Sufficiency 30-100, Toxicity >100 ng/mL Ordering Provider: CROW CHEUNG Report Released Date/Time: Apr 23, 2024 08:34 AM Reporting Lab: [facility] [address] [facility] [address] Performing Lab: [address] [address] [facility] URINE ALBUMIN/C REAT ([place] URINE) MICROALBUMI N [MASS/VOLUM E] IN URINE 1.5 mg/dL <2.0 - 2.0 05/27 Specimen Type: URINE No comment entered. Ordering Provider: NANCY SANDERSON Report Released Date/Time: May 11, 2024 04:06 PM Reporting Lab: [facility] [address] Performing Lab: [address] [phone] [facility] URINE ALBUMIN/C REAT ([place] URINE) CREATININE [MASS/VOLUM E] IN URINE 210.70 mg/dL 40 - 278 05/27 Specimen Type: URINE No comment entered. Ordering Provider: NANCY SANDERSON Report Released Date/Time: May 11, 2024 04:06 PM Reporting Lab: [address] [address] Performing Lab: [address] [address] [facility] URINE ALBUMIN/C REAT ([place] URINE) MICROALBUMI N/CREATININ E [RATIO] IN URINE 7 mg/g <30 - 30 05/27 Specimen Type: URINE No comment entered. Ordering Provider: NANCY SANDERSON Report Released Date/Time: May 11, 2024 04:06 PM Reporting Lab: [address] [address] Performing Lab: [address] [address] [facility] COMPREHEN SIVE PNL ANION GAP IN SERUM OR PLASMA 12 mmol/L 5 - 15 05/27 Specimen Type: PLASMA Comment: eGFR was calculated using the CKD-EPI Creatinine (2020) equation. Ordering Provider: CROW CHEUNG ER Report Released Date/Time: Apr 23, 2024 08:34 AM Reporting Lab: [address] [address] Performing Lab: [address] [address] [facility] COMPREHEN SIVE PNL GLOMERULAR FILTRATION RATE/1.73 SQ M.PREDICTED [VOLUME RATE/AREA] IN SERUM, PLASMA OR BLOOD BY CREATININE- BASED FORMULA (CKD-EPI 2020) 75 mL/min /{1.73 _m2} 60 05/27 Specimen Type: PLASMA Comment: eGFR was calculated using the CKD-EPI Creatinine (2020) equation. Ordering Provider: CROW CHEUNG ER Report Released Date/Time: Apr 23, 2024 08:34 AM Reporting Lab: [address] [address] Performing Lab: [facility] [address] [facility] [address] [facility] COMPREHEN SIVE PNL GLUCOSE [MASS/VOLUM E] IN SERUM OR PLASMA 105 mg/dL 70 - 99 05/27 H Specimen Type: PLASMA Comment: eGFR was calculated using the CKD-EPI Creatinine (2020) equation. Ordering Provider: CROW CHEUNG ER Report Released Date/Time: Apr 23, 2024 08:34 AM Reporting Lab: [address] [address] Performing Lab: [address] [address] [facility] COMPREHEN SIVE PNL POTASSIUM [MOLES/VOLU ME] IN SERUM OR PLASMA 4.0 mmol/L 3.5 - 4.7 05/27 Specimen Type: PLASMA Comment: eGFR was calculated using the CKD-EPI Creatinine (2020) equation. Ordering Provider: CROW CHEUNG ER Report Released Date/Time: Apr 23, 2024 08:34 AM Reporting Lab: [address] [address] Performing Lab: [address] [address] [facility] COMPREHEN [facility]IVE PNL SODIUM [MOLES/VOLU ME] IN SERUM OR PLASMA 139 mmol/L 136 - 145 05/27 Specimen Type: PLASMA Comment: eGFR was calculated using the CKD-EPI Creatinine (2020) equation. Ordering Provider: CROW CHEUNG ER Report Released Date/Time: Apr 23, 2024 08:34 AM Reporting Lab: [address] [address] Performing Lab: [address] [address] [facility] COMPREHEN SIVE PNL BILIRUBIN.T OTAL [MASS/VOLUM E] IN SERUM OR PLASMA 0.7 mg/dL 0.2 - 1.2 05/27 Specimen Type: PLASMA Comment: eGFR was calculated using the CKD-EPI Creatinine (2020) equation. Ordering Provider: CORW CHEUNG ER Report Released Date/Time: Apr 23, 2024 08:34 AM Reporting Lab: [address] [place] [address] Performing Lab: [facility] [address] [facility] [address] [facility] COMPREHEN SIVE PNL PROTEIN [MASS/VOLUM E] IN SERUM OR PLASMA 7.1 g/dL 5.7 - 8.2 05/27 Specimen Type: PLASMA Comment: eGFR was calculated using the CKD-EPI Creatinine (2020) equation. Ordering Provider: CROW CHEUNG ER Report Released Date/Time: Apr 23, 2024 08:34 AM Reporting Lab: [address] [address] Performing Lab: [address] [address] [facility] COMPREHEN SIVE PNL ALBUMIN [MASS/VOLUM E] IN SERUM OR PLASMA 4.6 g/dL 3.4 - 5.0 05/27 Specimen Type: PLASMA Comment: eGFR was calculated using the CKD-EPI Creatinine (2020) equation. Ordering Provider: CRWO CHEUNG ER Report Released Date/Time: Apr 23, 2024 08:34 AM Reporting Lab: [address] [address] Performing Lab: [address] [address] [facility] COMPRE[facility]EN [facility]IVE PNL ALKALINE PHOSPHATASE [ENZYMATIC ACTIVITY/VO LUME] IN SERUM OR PLASMA 150 U/L 45 - 117 05/27 H Specimen Type: PLASMA Comment: eGFR was calculated using the CKD-EPI Creatinine (2020) equation. Ordering Provider: CROW CHEUNG ER Report Released Date/Time: Apr 23, 2024 08:34 AM Reporting Lab: [address] [address] Performing Lab: [address] [address] [facility] COMPRE[facility]EN [facility]IVE PNL ALANINE AMINOTRANSF ERASE [ENZYMATIC ACTIVITY/VO LUME] IN SERUM OR PLASMA 47 U/L 10 - 65 05/27 Specimen Type: PLASMA Comment: eGFR was calculated using the CKD-EPI Creatinine (2020) equation. Ordering Provider: CROW CHEUNG ER Report Released Date/Time: Apr 23, 2024 08:34 AM Reporting Lab: [facility] [address] [facility] [address] Performing Lab: [facility] [address] [facility] [address] [facility] COMPREHEN SIVE PNL ASPARTATE AMINOTRANSF ERASE [ENZYMATIC ACTIVITY/VO LUME] IN SERUM OR PLASMA 35 U/L 10 - 37 05/27 Specimen Type: PLASMA Comment: eGFR was calculated using the CKD-EPI Creatinine (2020) equation. Ordering Provider: CROW CHEUNG ER Report Released Date/Time: Apr 23, 2024 08:34 AM Reporting Lab: [facility] [address] [place] [phone] Performing Lab: [address] [address] [facility] COMPREHEN SIVE PNL UREA NITROGEN [MASS/VOLUM E] IN SERUM OR PLASMA 17 mg/dL 7 - 21 05/27 Specimen Type: PLASMA Comment: eGFR was calculated using the CKD-EPI Creatinine (2020) equation. Ordering Provider: CROW CHEUNG ER Report Released Date/Time: Apr 23, 2024 08:34 AM Reporting Lab: [facility] [address] [place] [phone] Performing Lab: [facility] [address] [place] [phone] [facility] COMPRE[facility]EN [facility]IVE PNL CALCIUM, TOTAL 9.9 mg/dL 8.7 - 10.4 05/27 Specimen Type: PLASMA Comment: eGFR was calculated using the CKD-EPI Creatinine (2020) equation. Ordering Provider: CROW CHEUNG ER Report Released Date/Time: Apr 23, 2024 08:34 AM Reporting Lab: [address] [address] Performing Lab: [facility] [address] [place] [phone] [facility] COMPRE[facility]EN [facility]IVE PNL CARBON DIOXIDE, TOTAL [MOLES/VOLU ME] IN SERUM OR PLASMA 25 mmol/L 21 - 32 05/27 Specimen Type: PLASMA Comment: eGFR was calculated using the CKD-EPI Creatinine (2020) equation. Ordering Provider: CROW CHEUNG ER Report Released Date/Time: Apr 23, 2024 08:34 AM Reporting Lab: [address] [address] Performing Lab: [address] [address] [facility] COMPREHEN SIVE PNL CHLORIDE [MOLES/VOLU ME] IN SERUM OR PLASMA 102 mmol/L 98 - 109 05/27 Specimen Type: PLASMA Comment: eGFR was calculated using the CKD-EPI Creatinine (2020) equation. Ordering Provider: CROW CHEUNG Report Released Date/Time: Apr 23, 2024 08:34 AM Reporting Lab: [address] [address] Performing Lab: [address] [address] [facility] COMPREHEN [facility]IVE PNL CREATININE [MASS/VOLUM E] IN URINE 1.11 mg/dL 0.73 - 1.18 05/27 Specimen Type: PLASMA Comment: eGFR was calculated using the CKD-EPI Creatinine (2020) equation. Ordering Provider: CROW CHEUNG Report Released Date/Time: Apr 23, 2024 08:34 AM Reporting Lab: [address] [address] Performing Lab: [address] [address] [facility] HIV PCR QUANT (PANEL) HIV 1 [...] Mar 12, 2024 08:39 AM Reporting Lab: [facility] [address] [facility] [address] Performing Lab: [facility] [address] [place] [address] [facility] HIV PCR QUANT (PANEL) HIV [...] Mar 12, 2024 08:39 AM Reporting Lab: [facility] [address] [facility] [address] Performing Lab: [facility] [address] [place] [address] [facility] LYMPH SUBSET PANEL 4 ([id number]) -[facility] CD3 CELLS [#/VOLUME] IN BLOOD 1191 {cells }/uL 570 - 2400 03/30 Specimen Type: BLOOD Comment: INTERPRETIV E INFORMATION : Lymphocyte Subset 4, Pct. and Ratio, WB The CD4 cells are Chilton T-cells expressing both CD3 and CD4. The [...] and its performance characteris tics determined by [email or web address]. It has not been cleared or approved by the US Food and Drug Administrat [employer]. This test was performed in a CLIA certified laboratory and is intended for clinical purposes. Performed By: [email or web address] [address] [place], [place] [id number] Security Checker: Sabino Diaz MD, PhD CLIA Number: [id number] Ordering Provider: OSWALDO EGAN Report Released Date/Time: Mar 12, 2024 08:39 AM Reporting Lab: [facility] [address] [facility] [address] Performing Lab: [address] [address] [facility] LYMPH SUBSET PANEL 4 ([id number]) -[facility] CD3+CD4+ (T4 HELPER) CELLS [#/VOLUME] IN BLOOD 634 {cells }/uL 430 - 1800 03/30 Specimen Type: BLOOD Comment: INTERPRETIV E INFORMATION : Lymphocyte Subset 4, Pct. and Ratio, WB The CD4 cells are Chilton T-cells expressing both CD3 and CD4. The CD8 cells are Cytotoxic T-cells expressing both CD3 and CD8. CD3, CD4 and CD8 percentages are reported as a percent of total lymphocytes . CD4 T-cells levels are a criterion for categorizin g HIV-related clinical conditions by CDC's iQiyiat ion system for HIV infection. The measurement [...] and its performance characteris tics determined by [email or web address]. It has not been cleared or approved by the [employer] Food and Drug Administrat [employer]. This test was performed in a CLIA certified laboratory and is intended for clinical purposes. Performed By: [email or web address] [address] [place] [address] Security Checker: Sabino Diaz MD, PhD CLIA Number: [id number] Ordering Provider: OSWALDO EGAN Report Released Date/Time: Mar 12, 2024 08:39 AM Reporting Lab: [facility] [address] [place] [address] Performing Lab: [facility] [address] [facility] [address] [facility] LYMPH SUBSET PANEL 4 ([id number]) -[facility] CD3+CD8+ (T8 SUPPRESSOR) CELLS [#/VOLUME] IN BLOOD 557 {cells }/uL 210 - 1200 03/30 Specimen Type: BLOOD Comment: INTERPRETIV E INFORMATION : Lymphocyte Subset 4, Pct. and Ratio, WB The CD4 cells are Chilton T-cells expressing both CD3 and CD4. The [...] and its performance characteris tics determined by [employer]. It has not been cleared or approved by the US Food and Drug Administrat [employer]. This test was performed in a CLIA certified laboratory and is intended for clinical purposes. Performed By: [facility] s [address] [place] [address] Security Checker: Sabino Diaz MD, PhD CLIA Number: [id number] Ordering Provider: OSWALDO EGAN Report Released Date/Time: Mar 12, 2024 08:39 AM Reporting Lab: [facility] [address] [facility] [address] Performing Lab: [facility] [address] [facility] [address] [facility] LYMPH SUBSET PANEL 4 ([id number]) -[facility] CD3 CELLS/100 CELLS IN SPECIMEN 84 62 - 87 03/30 Specimen Type: BLOOD Comment: INTERPRETIV E INFORMATION : Lymphocyte Subset 4, Pct. and Ratio, WB The CD4 cells are Chilton T-cells expressing both CD3 and CD4. The [...] efficacy of treatment. The Public Health Service ([facility]) has recommended that CD4 T-cell levels be monitored every three to six months in all HIV-infecte d persons. This test was developed and its performance characteris tics determined by [email or web address]. It has not been cleared or approved by the US Food and Drug Administrat [employer]. This test was performed in a CLIA certified laboratory and is intended for clinical purposes. Performed By: [email or web address] [address] [place] [address] Security Checker: Sabino Diaz MD, PhD CLIA Number: [id number] Ordering Provider: OSWALDO EGAN Report Released Date/Time: Mar 12, 2024 08:39 AM Reporting Lab: [facility] [address] [facility] [address] Performing Lab: [facility] [address] [facility] [address] [facility] LYMPH SUBSET PANEL 4 ([id number]) -[facility] CD3+CD4+ (T4 HELPER) CELLS/100 CELLS IN BLOOD 45 32 - 64 03/30 Specimen Type: BLOOD Comment: INTERPRETIV E INFORMATION : Lymphocyte Subset 4, Pct. and Ratio, WB The CD4 cells are Chilton T-cells expressing both CD3 and CD4. The [...] efficacy of treatment. The Public Health Service ([facility]) has recommended that CD4 T-cell levels be monitored every three to six months in all HIV-infecte d persons. This test was developed and its performance characteris tics determined by [email or web address]. It has not been cleared or approved by the US Food and Drug Administrat [employer]. This test was performed in a CLIA certified laboratory and is intended for clinical purposes. Performed By: [email or web address] [address] [place] [address] Security Checker: Sabino Diaz MD, PhD CLIA Number: [id number] Ordering Provider: OSWALDO EGAN Report Released Date/Time: Mar 12, 2024 08:39 AM Reporting Lab: [facility] [address] [place] [address] Performing Lab: [address] [address] [facility] LYMPH SUBSET PANEL 4 ([id number]) -[facility] CD3+CD8+ (T8 SUPPRESSOR) CELLS/100 CELLS IN SPECIMEN 39 15 - 46 03/30 Specimen Type: BLOOD Comment: INTERPRETIV E INFORMATION : Lymphocyte Subset 4, Pct. and Ratio, WB The CD4 cells are Chilton T-cells expressing both CD3 and CD4. The [...] by the US Food and Drug Administrat [employer]. This test was performed in a CLIA certified laboratory and is intended for clinical purposes. Performed By: MIQUEL Solorzano s [address] [place] [address] Security Checker: Sabino Diaz MD, PhD CLIA Number: [id number] Ordering Provider: OSWALDO EGAN Report Released Date/Time: Mar 12, 2024 08:39 AM Reporting Lab: [address] [address] Performing Lab: [address] [address] [facility] LYMPH SUBSET PANEL 4 ([id number]) -[facility] CD3+CD4+ (T4 HELPER) CELLS/CD3+C D8+ (T8 SUPPRESSOR CELLS) CELLS [# RATIO] IN BLOOD 1.15 {ratio } 0.80 - 3.90 03/30 Specimen Type: BLOOD Comment: INTERPRETIV E INFORMATION : Lymphocyte Subset 4, Pct. and Ratio, WB The CD4 cells are Chilton T-cells expressing both CD3 and CD4. The [...] efficacy of treatment. The Public Health Service ([facility]) has recommended that CD4 T-cell levels be monitored every three to six months in all HIV-infecte d persons. This test was developed and its performance characteris tics determined by [facility]EL [employer]. It has not been cleared or approved by the US Food and Drug Administrat [employer]. This test was performed in a CLIA certified laboratory and is intended for clinical purposes. Performed By: MIQUEL florian [address] [place] [address] Security Checker: Sabino Diaz MD, PhD CLIA Number: [id number] Ordering Provider: OSWALDO EGAN Report Released Date/Time: Mar 12, 2024 08:39 AM Reporting Lab: [facility] [address] [facility] [address] Performing Lab: [facility] [address] [facility] [address] [facility] LYMPH SUBSET PANEL 4 ([id number]) -[facility] ANNOTATION COMMENT [INTERPRETA TION] NARRATIVE See Note 03/30 Specimen Type: BLOOD Comment: INTERPRETIV E INFORMATION : Lymphocyte Subset 4, Pct. and Ratio, WB The CD4 cells are Chilton T-cells expressing both CD3 and CD4. The [...] efficacy of treatment. The Public Health Service ([facility]) has recommended that CD4 T-cell levels be monitored every three to six months in all HIV-infecte d persons. This test was developed and its performance characteris tics determined by [employer]. It has not been cleared or approved by the US Food and Drug Administrat ion. This test was performed in a CLIA certified laboratory and is intended for clinical purposes. Performed By: [facility] [address] [place] [address] Security Checker: Sabino Diaz MD, PhD CLIA Number: [id number] Ordering Provider: OSWALDO EGAN Report Released Date/Time: Mar 12, 2024 08:39 AM Reporting Lab: [address] [address] Performing Lab: [facility] [address] [facility] [address] [facility] PHOS PHOS 2.9 mg/dL 2.4 [...] 12, 2024 08:39 AM Reporting Lab: [address] [address] Performing Lab: [address] [address] [facility] LIPID PNL CHOLESTEROL IN HDL [...] Mar 12, 2024 08:39 AM Reporting Lab: [place] [address] Performing Lab: [place] [address] [place] [address] LIPID PNL TRIGLYCERID E [MASS/VOLUM E] IN [...] Mar 12, 2024 08:39 AM Reporting Lab: [place] [phone] Performing Lab: [place] [address] [place] [address] LIPID PNL CHOLESTEROL IN LDL [MASS/VOLUM E] IN SERUM OR PLASMA BY DIRECT ASSAY [facility] 03/30 Specimen Type: PLASMA Comment: Low-risk levels [...] 12, 2024 08:39 AM Reporting Lab: [address] [address] Performing Lab: [address] [address] [facility] LIPID PNL CHOLESTEROL [MASS/VOLUM E] [...] 12, 2024 08:39 AM Reporting Lab: [address] [address] Performing Lab: [address] [address] [facility] LIPID PNL CHOLESTEROL IN LDL [...] 12, 2024 08:39 AM Reporting Lab: [address] [address] Performing Lab: [address] [address] [facility] VITAMIN D 25-HYDROX Y 25-HYDROXYV ITAMIN D3 [MASS/VOLUM E] IN SERUM OR PLASMA 48.30 ng/mL 30 - 100 03/30 Specimen Type: SERUM Comment: Deficiency <20, Insufficien cy 20-30, Sufficiency 30-100, Toxicity >100 ng/mL Ordering Provider: OSWALDO EGAN Report Released Date/Time: Mar 12, 2024 08:39 AM Reporting Lab: [address] [address] Performing Lab: [address] [address] [facility] COMPREHEN SIVE PNL ANION GAP [...] 12, 2024 08:39 AM Reporting Lab: [address] [address] Performing Lab: [address] [address] [facility] COMPREHEN SIVE PNL GLOMERULAR FILTRATION [...] Mar 12, 2024 08:39 AM Reporting Lab: [place] [address] Performing Lab: [address] COMPREHEN SIVE PNL GLUCOSE [MASS/VOLUM E] IN [...] Mar 12, 2024 08:39 AM Reporting Lab: [place] [address] Performing Lab: [address] COMPREHEN SIVE PNL POTASSIUM [MOLES/VOLU ME] [...] Mar 12, 2024 08:39 AM Reporting Lab: [place] [address] Performing Lab: [place] [address] [place] [address] COMPREHEN SIVE PNL SODIUM [MOLES/VOLU ME] IN [...] Mar 12, 2024 08:39 AM Reporting Lab: [place] [address] Performing Lab: [place] [address] [place] [address] COMPREHEN SIVE PNL BILIRUBIN.T OTAL [MASS/VOLUM E] [...] Mar 12, 2024 08:39 AM Reporting Lab: [place] [address] Performing Lab: [place] [address] [place] [address] COMPREHEN SIVE PNL PROTEIN [MASS/VOLUM E] IN [...] Mar 12, 2024 08:39 AM Reporting Lab: [place] [address] Performing Lab: [place] [address] [facility] COMPREHEN SIVE PNL ALBUMIN [MASS/VOLUM [...] 12, 2024 08:39 AM Reporting Lab: [address] [address] Performing Lab: [place] [address] [facility] COMPREHEN SIVE PNL ALKALINE PHOSPHATASE [...] 12, 2024 08:39 AM Reporting Lab: [address] [address] Performing Lab: [address] [address] [facility] COMPREHEN SIVE PNL ALANINE AMINOTRANSF ERASE [ENZYMATIC ACTIVITY/VO LUME] IN SERUM OR PLASMA 57 U/L 10 - 65 03/30 Specimen Type: PLASMA Comment: Low-risk levels [...] 12, 2024 08:39 AM Reporting Lab: [address] [address] Performing Lab: [address] [address] [facility] COMPREHEN SIVE PNL ASPARTATE AMINOTRANSF [...] 12, 2024 08:39 AM Reporting Lab: [address] [address] Performing Lab: [address] [address] [facility] COMPREHEN SIVE PNL UREA NITROGEN [...] 12, 2024 08:39 AM Reporting Lab: [address] [address] Performing Lab: [address] [address] [facility] COMPREHEN SIVE PNL CALCIUM, TOTAL 9.7 mg/dL [...] 12, 2024 08:39 AM Reporting Lab: [address] [address] Performing Lab: [address] [address] [facility] COMPREHEN SIVE PNL CARBON DIOXIDE, TOTAL [MOLES/VOLU ME] IN SERUM OR PLASMA 28 mmol/L - 03/30 Specimen Type: PLASMA Comment: Low-risk [...] Mar 12, 2024 08:39 AM Reporting Lab: [place] [phone] Performing Lab: [place] [address] [address] COMPREHEN SIVE PNL CHLORIDE [MOLES/VOLU ME] IN [...] Mar 12, 2024 08:39 AM Reporting Lab: [place] [phone] Performing Lab: [place] [phone] [facility] COMPREHEN SIVE PNL CREATININE [MASS/VOLUM E] IN URINE 1.30 [...] Mar 12, 2024 08:39 AM Reporting Lab: [facility] [address] [facility] [address] Performing Lab: [facility] [address] [facility] [address] [facility] Vital Signs Combined list of inpatient and outpatient Vital Signs from Department of Defense and Veterans Affairs, ranging from 12 months to all on record, depending upon the facility. Vital Sign Value Date Comments Source SYSTOLIC BLOOD PRESSURE 152 05/27/2024 13:49:34 [facility] DIASTOLIC BLOOD PRESSURE 92 05/27/2024 13:49:34 [facility] PULSE OXIMETRY 94 05/27/2024 13:49:34 [facility] WEIGHT 264.4 05/27/2024 13:49:34 [facility] BMI 33 kg/m2 05/27/2024 13:49:34 [facility] PAIN 7 05/27/2024 13:49:34 [facility] TEMPERATURE 97.7 05/27/2024 13:49:34 [facility] PULSE 103 05/27/2024 13:49:34 [facility] RESPIRATION 22 05/27/2024 13:49:34 [facility] SYSTOLIC BLOOD PRESSURE 153 05/11/2024 14:19:31 [facility] DIASTOLIC BLOOD PRESSURE 99 05/11/2024 14:19:31 [facility] PULSE OXIMETRY 94 05/11/2024 14:19:31 [facility] WEIGHT 268 05/11/2024 14:19:31 [facility] BMI 34 kg/m2 05/11/2024 14:19:31 [facility] PAIN 6 05/11/2024 14:19:31 [facility] HEIGHT 75 05/11/2024 14:19:31 [facility] TEMPERATURE 97.5 05/11/2024 14:19:31 [facility] PULSE 70 05/11/2024 14:19:31 [facility] RESPIRATION 20 05/11/2024 14:19:31 [facility] SYSTOLIC BLOOD PRESSURE 153 12/15/2023 13:59:53 [facility] DIASTOLIC BLOOD PRESSURE 104 12/15/2023 13:59:53 [facility] PULSE OXIMETRY 95 12/15/2023 13:59:53 [facility] WEIGHT 269 12/15/2023 13:59:53 [facility] BMI 34 kg/m2 12/15/2023 13:59:53 [facility] PAIN 5 12/15/2023 13:59:53 [facility] HEIGHT 75 12/15/2023 13:59:53 [facility] TEMPERATURE 97.7 12/15/2023 13:59:53 [facility] PULSE 73 12/15/2023 13:59:53 [facility] SYSTOLIC BLOOD PRESSURE 146 12/10/2023 11:45:29 [place] DIASTOLIC BLOOD PRESSURE 99 12/10/2023 11:45:29 [place] PULSE OXIMETRY 94 12/10/2023 11:45:29 [facility] WEIGHT 274 12/10/2023 11:45:29 [facility] BMI 34 kg/m2 12/10/2023 11:45:29 [facility] TEMPERATURE 97.8 12/10/2023 11:45:29 [facility] PULSE 76 12/10/2023 11:45:29 [facility] RESPIRATION 16 12/10/2023 11:45:29 [facility] Encounters Combined list of: 1) Encounters from Department of Veterans Affairs facilities going backup to the last 18 months, not all [place] inpatient encounters are included; 2) Encounters 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 gulanjayden BEVERLEY SAMUEL ANA MARIA A 03/17 [facility] QNHP OL DIG ASSMT&MGMT 5-10 [id number] Diagnos is: ICD-10- CM I48.0 Paroxys mal atrial fibrill alexion ELIAN COOPER 04/17 [facility] Outpatient Encounter [id number] 04/18 [facility] Outpatient Encounter [id number] 05/02 [facility] Outpatient Encounter [id number] 05/08 [facility] Outpatient Encounter [id number] 05/08 [facility] Outpatient Encounter [id number] 05/15 [facility] Outpatient Encounter [id number] 05/17 [facility] OFFICE O/P EST MOD 30 MIN [id number] Diagnos is: ICD-10- CM B20 Human immunod eficien cy virus [HIV] disease OSWALDO EGAN 05/20 [facility] Outpatient Encounter [id number] 05/20 [facility] OFFICE O/P EST MOD 30 MIN [id number] Diagnos is: ICD-10- CM N17.9 Acute kidney failure , unspeci fied CHOLO MICHELNANCY 05/20 [facility] Outpatient Encounter [id number] 05/20 [facility] Outpatient Encounter [id number] 05/20 [facility] Outpatient Encounter [id number] 05/21 [facility] Outpatient Encounter [id number] 05/21 [facility] Outpatient Encounter [id number] 05/22 [facility] Outpatient Encounter [id number] 05/22 [facility] Outpatient Encounter [id number] 05/23 [facility] Outpatient Encounter [id number] 05/23 [facility] Outpatient Encounter [id number] 06/12 [facility] Outpatient Encounter [id number] 06/12 [facility] OFFICE O/P EST MOD 30 MIN [id number] Diagnos is: ICD-10- CM F33.41 Major depress ketty disorde r, recurre nt, in partial remissi on [facility] 06/12 [facility] Outpatient Encounter [id number] 08/18 [facility] Outpatient Encounter [id number] 08/18 [facility] Outpatient Encounter [id number] 08/20 [facility] Outpatient Encounter [id number] 08/21 [facility] Outpatient Encounter [id number] 08/26 [facility] Outpatient Encounter [id number] 08/27 [facility] PSYTX W PT W E/M 30 MIN [id number] Diagnos is: ICD-10- CM F32.5 Major depress ketty disorde r, single episode , in full remissi on [facility] 09/11 [facility] Outpatient Encounter [id number] 09/15 [facility] Outpatient Encounter [id number] 09/30 [place] [facility] [id number] 09/30 [place] [facility] En[facility] [id number] 10/28 [facility] En[facility] [id number] 11/09 [facility] [id number] 11/10 [facility] [id number] 11/10 [facility] Outpatient Encounter [id number] 11/18 [facility] Outpatient Encounter [id number] FRANCINESHYANN 11/25 [facility] Outpatient Encounter [id number] 11/30 [facility] Outpatient Encounter [id number] 12/01 [facility] Outpatient Encounter [id number] 12/01 [facility] Outpatient Encounter [id number] 12/07 [facility] OFF/OP CONSLTJ NEW/EST HI 55 [id number] Diagnos is: ICD-10- CM Z01.810 Encount er for preproc edural cardiov ascular examina ANTONI Gray 12/09 [facility] Outpatient Encounter [id number] 12/11 [facility] OFFICE O/P EST MOD 30 MIN [id number] Diagnos is: ICD-10- CM M75.101 Unsp rotatr- cuff tear/ru ptr of right shoulde r, not trauma Lencho JOHNSON 12/14 [facility] Outpatient Encounter [id number] 12/21 [facility] Outpatient Encounter [id number] 12/23 [facility] Outpatient Encounter [id number] 12/30 [facility] Outpatient Encounter [id number] 01/26 [facility] Encounter [id number] 02/04 [facility] Outpatient Encounter [id number] 02/15 [facility] Outpatient Encounter [id number] 02/16 [facility] Outpatient Encounter [id number] 02/17 [facility] Outpatient Encounter [id number] 02/26 [facility] Outpatient Encounter [id number] SHYANN ESCAMILLA 03/02 [facility] QNHP OL DIG ASSMT&MGMT 5-10 [id number] Diagnos is: ICD-10- CM I48.0 Paroxys mal atrial fibrill ation ELIAN COOPER 03/12 [facility] Outpatient Encounter [id number] 03/12 [facility] Outpatient Encounter [id number] 03/18 [facility] Outpatient Encounter [id number] 03/30 [facility] Outpatient Encounter [id number] 04/05 [facility] Outpatient Encounter [id number] 04/08 [facility] Outpatient Encounter [id number] 04/09 [facility] Outpatient Encounter [id number] Diagnos is: ICD-10- CM B20 Human immunod eficien cy virus [HIV] disease DAYA EGANLOUISA 04/14 [facility] Outpatient Encounter [id number] 04/16 [facility] Outpatient Encounter [id number] 04/20 [facility] Outpatient Encounter [id number] LEE REGALADO 04/23 [facility] Outpatient Encounter [id number] SAM STRICKLAND 05/06 [facility] OFFICE O/P EST MOD 30 MIN [id number] Diagnos is: ICD-10- CM N17.9 Acute kidney failure , unspeci fied NANCY JAIMES 05/11 [facility] Outpatient Encounter [id number] 05/25 [facility] Outpatient Encounter [id number] 05/25 [facility] Outpatient Encounter [id number] 05/26 [facility] Outpatient Encounter [id number] 05/27 [facility] OFFICE O/P EST LOW 20 MIN [id number] Diagnos is: ICD-10- CM M25.569 Pain in unspeci fied knee RASHID PEREZ L 05/27 [facility] Outpatient Encounter [id number] 05/27 [facility] Outpatient Encounter [id number] 05/31 [facility] En[facility] [id number] 05/31 [facility] Encounter [id number] 05/31 [facility] Encounter [id number] 05/31 [facility] Outpatient Encounter [id number] 06/01 [facility] En[facility] [id number] 06/02 [facility] Outpatient Encounter [id number] SHYANN ESCAMILLA 06/04 [facility] Outpatient Encounter [id number] 06/07 [facility] Encounter [id number] 06/07 [facility] Encounter [id number] 06/09 [facility] [id number] 06/10 [facility] [id number] 06/17 [facility] Outpatient Encounter [id number] 1 SHYANN ESCAMILLA 06/25 [facility] En[facility] [id number] 06/25 [facility] En[facility] [id number] 07/09 [facility] Outpatient Encounter [id number] 07/30 [facility] Outpatient Encounter [id number] 08/13 [facility] Social History Combined list of available smoking, tobacco, and other social history from Department of Defense and Veterans Affairs facilities. Social History Type Response Date Comment Source Tobacco smoking status MSIS VA-TOBACCO FORMER USER 12/10/2023 [facility] History of tobacco use VA-TOBACCO QUIT 15 YRS OR MORE 12/10/2023 [facility] History of tobacco use VA-TOBACCO FORMER USER 08/13/2022 [facility] History of tobacco use VA-TOBACCO FORMER USER 04/03/2021 [facility] History of tobacco use VA-TOBACCO QUIT 5 TO < 15 YRS 01/18/2020 [facility] History of tobacco use VA-TOBACCO QUIT 1 TO < 5 YRS 11/27/2018 [facility] History of tobacco use VA-TOBACCO [...] of future care activities from Department of [facility] facilities. Additional future care activities may be listed in the Assessment and Plan section. Date/Time Care Activity Care Activity Detail Facili ty 10/05/2024 AMBULATORY - NONE AMBULATORY - NONE [facility] Advance Directives List of completed, amended, or rescinded Advance Directives on record at Department of Veterans Affairs facilities. An actual copy of the Directive is not included. Date Advance Directive Provider Source 12/31/2023 ADVANCE DIRECTIVE DISCUSSION Martin [facility]
[2024-08-13 16:56] VITALS: BP 128/93; PULSE 108; RESP 18; TEMP 36.2; O2SAT 98
[2024-08-13 18:56] VITALS: BP 150/97; PULSE 96; RESP 18; O2SAT 95
--- NOTE | 2024-08-13 19:17 | ED.GENADULT ---
HPI - General Adult General Chief complaint: Extremity Injury, Lower Stated complaint: left foot problems Time Seen by Provider: 08/13/24 19:05 History of Present Illness HPI narrative: Patient is a 8-year-old male who presents the emergency department this evening complaining of left foot pain and swelling. Pain is mainly localized to was the base of the 1st metatarsal of the left foot. Patient admits that he does have a history of gout states that it has not bothered him in a while and states that usually he gets these attacks when he drinks alcohol and he has not had any alcohol in the last 10 days. Denies injuries to his left foot. No additional symptoms or concerns at this time. Related Data Home Medications ?Medication ?Instructions ?Recorded ?Confirmed ?Last Taken ?Type apixaban 5 mg tablet 5 mg PO BID 02/25/24 02/25/24 02/25/24 History tamsulosin 0.4 mg capsule 0.4 mg PO DAILY 02/25/24 02/25/24 02/25/24 History Allergies Allergy/AdvReac Type Severity Reaction Status Date / Time Wapoivv-WMU-NqV Reductase AdvReac Muscle Pain Verified 08/13/24 19:00 Inhibitor Review of Systems Review of Systems: All systems are reviewed and are negative unless stated otherwise in the HPI. [facility] Past Medical History Medical History Urinary hesitancy GERD (gastroesophageal reflux disease) HLD (hyperlipidemia) HTN (hypertension) Atrial fibrillation SVT (supraventricular tachycardia) Surgical History Surgical History History of lumbar fusion L3-L5 History of rotator cuff surgery R 11/2023, L 2021 History of fracture of left hip miriam implant, 2010 History of cardiac radiofrequency ablation Family History Family History Father Acute myocardial infarction Hypertension Sibling Hypertension Social History Social History Smoking packs per day: 1 Smoking cigarettes per day: 20.0 Years smoked: 40 Smoking pack-years: 40.00 Smoking status: Former smoker Tobacco type: cigarettes Second hand tobacco smoke exposure: Yes Additional smoking assessment comments: quit 2003 Alcohol intake: current Substance use: never Do You Feel Safe in your Home?: Yes Lack of Transportation: No Lack of Food: Never True Current Housing: I Have Housing Concerned About Future Housing: No Difficulty Paying Gas/Electric Bills: No Difficulty Paying for Meds: No Currently Unemployed: No Education: Bachelor's Degree Difficulty w/ Childcare or Family Care: No Spiritual care concerns: No Exam Narrative: General: Alert, awake, afebrile, in no acute distress. HEENT: PERRL, no rhinorrhea, no post nasal drip, oropharynx clear. Neck: Trachea midline, no JVD, no lymphadenopathy. Cardiovascular: Regular rate and rhythm, no murmurs, rubs or gallops, no peripheral edema. Respiratory: Clear to auscultation bilaterally, no tachypnea, no wheezing, no rhonchi, no rubs, no respiratory distress. Abdomen: Soft, nontender, nondistended, no rebound, no guarding, no peritoneal signs. Musculoskeletal: Swelling noted to the left foot extending to the left ankle joint, decreased range of motion at the left ankle joint secondary to swelling, tenderness to palpation over the 1st metatarsal compatible with gout. Skin: No rashes or petechia, no signs of infection. Psychiatric: Alert and oriented, normal behavior and judgment for situation. Neurological: Alert and oriented to person, place, and time. Follows all commands. No focal deficits, speech is clear and fluent. Course Vital Signs Vital signs: Vital Signs Temperature 97.2 F L 08/13/24 16:56 Pulse Rate 108 H 08/13/24 16:56 Respiratory Rate 18 08/13/24 16:56 Blood Pressure 128/93 H 08/13/24 16:56 Pulse Oximetry 98 08/13/24 16:56 Temperature 97.2 F L 08/13/24 16:56 Pulse Rate 92 08/13/24 19:57 Respiratory Rate 18 08/13/24 19:57 Blood Pressure 132/108 H 08/13/24 19:57 Pulse Oximetry 100 08/13/24 19:57 Medical Decision Making MDM Narrative Medical decision making narrative: The patient was evaluated by myself in the emergency department. History is obtained from patient who is an independent historian and physical exam was performed. External medical records were reviewed at this time. Patient was administered 1.2 mg of oral colchicine and 0.6 mg of oral colchicine 1 hour apart. Imaging studies obtained included left ankle and foot x-rays which was independently interpreted by me revealing: No definite acute osseous abnormality left ankle and foot. Possible bony fragment between the tarsal bones as described above. Follow-up advised. Differential diagnosis considerations include gout, fractures, dislocations, DVT. Comorbidities impacting this visit include history of gout. I have evaluated and discussed social determinants of health with the patient that could potentially impact subsequent diagnosis and treatment plans. On repeat assessment of the patient, reevaluation revealed that the patient is doing well and is in no acute distress. Patient symptoms have improved since he arrived to our emergency department. Repeat vital signs were all reviewed and noted to be stable. Differential diagnosis and treatment plan were discussed with the patient at bedside. Patient agrees with discussion and after shared medical decision making agrees with discharge. All questions were answered to the patient's satisfaction. Patient will follow up with his PCP in 3-5 days. Patient was scheduled for an outpatient ultrasound of his left lower extremity to rule out a DVT in the morning. Patient was provided with strict return precautions and instructed to return to the emergency department if any new or worsening symptoms develop. The patient was discharged in stable condition. Vital Signs Vital Signs: Vital Signs Temperature 97.2 F L 08/13/24 16:56 Pulse Rate 108 H 08/13/24 16:56 Respiratory Rate 18 08/13/24 16:56 Blood Pressure 128/93 H 08/13/24 16:56 Pulse Oximetry 98 08/13/24 16:56 Temperature 97.2 F L 08/13/24 16:56 Pulse Rate 92 08/13/24 19:57 Respiratory Rate 18 08/13/24 19:57 Blood Pressure 132/108 H 08/13/24 19:57 Pulse Oximetry 100 08/13/24 19:57 Discharge Plan Discharge Clinical Impression: Gout attack, Localized swelling of left foot Patient Disposition: Home Condition: Improved Instructions: Antibiotic Form, Gout (ED) Additional Instructions: Please follow-up with your family doctor within the next 3-5 days. Return to the emergency department if any new or worsening symptoms develop. You are scheduled for an outpatient ultrasound of your left lower extremity to rule out a blood clot, he will need to present tomorrow morning at 7:00 a.m. to our imaging department to have this study performed. Patient Language: Nepali Prescriptions: No Action metoprolol succinate 50 mg tablet extended release 24 hr 50 mg PO DAILY Qty: 30 0RF Rx Instructions: Take IN ADDITION to the 50mg daily you are already taking, for total of 50 mg twice a day. tamsulosin 0.4 mg Capsule 0.4 mg PO DAILY apixaban 5 mg Tablet 5 mg PO BID diltiazem HCl 180 mg Capsule,Ext.Rel 24h Degradable 360 mg PO QAM Qty: 90 0RF hydrocodone-acetaminophen 5-325 mg tablet 1 tablet PO Q6H PRN (Reason: pain) 3 Days Qty: 12 0RF Other Ambulatory Orders: US venous dop w reflux LE LT (Routine) Timeframe: 20240813 Location: Determined by Patient Ordered By: Addis Peguero Follow-up/Referrals: [facility] [Primary Care Provider] - 3 Days Time of Disposition: 20:19
[2024-08-13] MEDS: COLCHICINE 0.6 MG TABLET 1.2 MG PO (19:56)
[2024-08-13 19:57] VITALS: BP 132/108; PULSE 92; RESP 18; O2SAT 100
--- OUTSIDE RECORDS SUMMARY | 2024-08-13 20:00 | XMS_ITS | Encounter Summary ---
Author Organization [facility] Address [facility] [place] [address] Care Team Providers Care Ore Dressing Engineer Name Role Phone Azucena, Concepcion Martin NP Unavailable Unavailable Kevin Ontiveros MD Primary Care Provider [phone] Kevin Ontiveros MD Unavailable [phone] Gregory Hamlin Unavailable [phone] Chris Hamlin NP Primary Care Provider Arcadio Gilmore DO Unavailable [phone] Enzo Gutierrez MD Unavailable Encounter Details Date Type Department Care Team (Late st Contact Info) Description 07/09/2019 [facility] [address] [place] [address] Pool Ragland MD Social History Tobacco Use Types Packs/Day Years Used Date Smoking Tobacco: Former Cigarettes 1 30 0 09/30/1981 - 10/01/2011 Smokeless Tobacco: Former Chew Quit: 2016 Alcohol Use Standard Drinks/Week Comments Yes 0 (1 standard drink = 0.6 oz pur e alcohol) rarely Sex and Gender Information Value Date Recorded Sex Assigned at Not on file 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 Gender Identity Male 05/30/2021 2:32 PM ELECTROMATIC TYPIST Sexual Orientation Not on file documented as [...] documented as of this encounter Care Teams Ore Dressing Engineer Relationship Specialty Start Date End Date Kevin Ontiveros MD [address] [place] [address] PCP - General FAMILY PRACTICE 12/25/17 04/07/22 Kevin Ontiveros MD [address] [place] [address] PCP - VA PROVIDER FAMILY PRACTICE 12/25/17 04/07/22 Chris Hamlin NP [address] [place] [address] [address], [place] [address] PCP - General NURSE PRACTITIONER 04/08/22 Concepcion Zeng NP Referring Physician CARDIOVASCULAR DISEASE 10/09/17 Gregory Hamlin PA [address] [place] [address] PHYSICIAN ELECTRIC TRACK SWITCH MAINTAINER 01/17/22 Arcadio Gilmore DO [address] [facility] [address] [place], [place] [address] Consulting Physician CARDIOVASCULAR DISEASE 05/30/22 Enzo Gutierrez MD [facility] [address] [facility] [place] [address] Consulting Physician INTERVENTIONAL CARDIOLOGY 11/21/22 documented as of this encounter
--- OUTSIDE RECORDS SUMMARY | 2024-08-13 20:00 | XMS_ITS | Encounter Summary ---
Author Organization [facility] Address [address] [place] [address] Phone Care Team Providers Care Habilitation Specialist Name Role Phone Administration, Veterans Primary Care Provide r Unavailable Encounter Details Date Type Department Care Team (Late st Contact Info) Description 08/02/2024 Results Follow-Up [facility] Cardiology [facility] [address] [place] [id number] Denys Capone MD [address] [id number] Social History Tobacco Use Types Packs/Day Years [...] on file 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 Gender Identity Not on file Sexual Orientation Not on file documented as of this encounter Plan of Treatment Upcoming Encounters Date Type Department Care Team (Latest Contact Info) Description 09/17/2024 10:55 AM CDT Hospital Encounter [facility] Electrophysiology Lab [address] [place] [address] Denys Capone MD [address] [address] [place] [address] Paroxysmal atrial fibrillation (HCC) 09/17/2024 10:55 AM CDT - 09/17/2024 2:50 PM CDT Surgery [facility] Electrophysiology Lab [address] [place] [address] Denys Capone MD [address] [address] ABLATION ATRIAL FIBRILLATION (A-FIB) VIA PULMONARY VEIN ISOLATION [address] documented as of this encounter Visit Diagnoses Not on filedocumented in this encounter Care Teams Habilitation Specialist Relationship Specialty Start Date End Date Tiffany Ugarte MD PCP - General Barrel Rib Matting Machine Operator 06/01/24 documented as of this encounter
--- OUTSIDE RECORDS SUMMARY | 2024-08-13 20:00 | XMS_ITS | Encounter Summary ---
Author Organization [facility] Address [facility] [place] [address] Care Team Providers Care Multiple Drum Sander Name Role Phone Azucena, Concepcion Martin NP Unavailable Unavailable Kevin Ontiveros MD Primary Care Provider [phone] Kevin Ontiveros MD Unavailable [phone] Gregory Hamlin Unavailable [phone] Chris Hamlin NP Primary Care Provider Arcadio Gilmore DO Unavailable [phone] Enzo Gutierrez MD Unavailable Encounter Details Date Type Department Care Team (Late st Contact Info) Description 05/04/2019 Abstract [facility] [address] [place] [address] Pool Ragland MD Social History Tobacco Use Types Packs/Day Years Used Date Smoking Tobacco: Former Cigarettes 1 30 0 09/30/1981 - 10/01/2011 Smokeless Tobacco: Former Chew Quit: 2016 Alcohol Use Standard Drinks/Week Comments Yes 0 (1 standard drink = 0.6 oz pur e alcohol) rarely Sex and Gender Information Value Date Recorded Sex Assigned at Not on file Legal 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 CENTER 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 Gender Identity Male 05/30/2021 2:32 PM RECREATION CENTER DIRECTOR Sexual Orientation Not on file documented as of this encounter Plan of Treatment Not on file documented as of this encounter Procedures Procedure Name Priority Date/Time Associated Diagnosis Comments CMP (OUTSIDE LAB) Routine 05/03/2019 5:1 5 PM RECREATION CENTER DIRECTOR CBC W/DIFF AUTOMATED Routine 05/03/2019 5:15 PM RECREATION CENTER DIRECTOR MAGNESIUM (OUTSIDE LAB) Routine 03/06/2019 3:20 PM RECREATION CENTER DIRECTOR THYROID PANEL Routine 03/06/2019 documented in this encounter Results * (ABNORMAL) CMP (OUTSIDE LAB) (05/03/2019 5:15 PM RECREATION CENTER DIRECTOR) SODIUM S/P/B 140 136 - 145 POTASSIUM [...] 23 0 - 100 05/03/2019 5:15 PM RECREATION CENTER DIRECTOR [facility] Abstract LAB-OUTSIDE/ABSTRACTED Final Result * (ABNORMAL) CBC W/DIFF AUTOMATED (05/03/2019 5:15 PM RECREATION CENTER DIRECTOR) WBC 5.2 4.0 - 10.8 RBC 4.64 [...] 0.0 - 0.5 05/03/2019 5:1 5 PM RECREATION CENTER DIRECTOR us [facility] Abstract LABORATORY Final Result * MAGNESIUM (OUTSIDE LAB) (03/06/2019 3:20 PM RECREATION CENTER DIRECTOR) MAGNESIUM 1.9 03/06/2019 3:20 PM RECREATION CENTER DIRECTOR us Doc [facility] Abstract LAB-OUTSIDE/ABSTRACTED Final Result [...] documented as of this encounter Care Teams Multiple Drum Sander Relationship Specialty Start Date End Date Kevin Ontiveros MD [address] [place] [address] PCP - General FAMILY PRACTICE 12/25/17 04/07/22 Kevin Ontiveros MD [address] [place] [address] PCP - [facility] PROVIDER FAMILY PRACTICE 12/25/17 04/07/22 Chris Hamlin NP [address] [place] [address] PCP - General NURSE PRACTITIONER 04/08/22 Concepcion Zeng MEDICAL CLAIMS MANAGER Referring Physician CARDIOVASCULAR DISEASE 10/09/17 Gregory Hamlin PA [address] [place] [address] PHYSICIAN PUNCH MACHINE HAND 01/17/22 Arcadio Gilmore DO [address] [place], [place] [address], [place] [address] Consulting Physician CARDIOVASCULAR DISEASE 05/30/22 Enzo Gutierrez MD [facility] [address] [facility] [place] [address] Consulting Physician INTERVENTIONAL CARDIOLOGY 11/21/22 documented as of this encounter
--- OUTSIDE RECORDS SUMMARY | 2024-08-13 20:00 | XMS_ITS | Continuity of Care Document ---
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 It does not include entries that were removed or entered in error. Problem Status Onset Date Problem Type Date of Resolution Comments Source Arthralgia of the ankle and/or foot Active Condition [facility] Atrial fibrillation Active Condition Dec 31, 2017 Entered By: DEBI CUENCA Comment: S/P ablation 12/25/2017Jun 2018 Entered By: SRINI MAGALLANES Comment: followed by [place] cardiolgy [facility] Benign essential hypertension Active Condition [facility] Cervicalgia Active Condition [facility] Chronic cough Active Condition [facility] Chronic kidney disease stage 3 Active Condition Oct 15, 2018 Entered By: SRINI MAGALLANES Comment: avoids NSAIDS [facility] Chronic Low Back Pain (SCT 066092) Active Condition [facility] Diverticulitis Active Condition Jun Entered By: SRINI MAGALLANES Comment: 06/25/18 colonoscopy, bx pendingMay 2018 Entered By: JAVON SEYMOUR Comment: 09/08/18 Flex sig, biopsy--benig n tissue, repeat 2 yr [facility] Dysphagia Active Condition [facility] Family social history Active Condition Oct 15, 2018 Entered By: SRINI MAGALLANES Comment: father had MS, smoker, in 50'sJun 2018 Entered By: SRINI MAGALLANES Comment: brother with CVA at age 60Jun 2018 Entered By: SRINI MAGALLANES Comment: 1/2 brother with MS [facility] Gastroesophageal reflux disease Active Condition [facility] H/O: surgery Active Condition Oct 15, 2018 Entered By: SRINI MAGALLANES Comment: left hip fracture 1982, fall, in traction for monthJun 2018 Entered By: SRINI MAGALLANES Comment: miriam in left upper femur, 2012 following fractureOct 15, 2018 Entered By: SRINI MAGALLANES Comment: lumbar fusion, 1999Oct 15, 2018 Entered By: SRINI MAGALLANES Comment: ablation 01/13 for atrial fib [facility] HIV - Human Immunodeficiency Virus Infection (SCT 76394998) Active Condition [facility] Hyperlipidemia Active Condition [facility] Long-term current use of anticoagulant Active Condition [facility] Obesity Active Condition [facility] Obstructive sleep apnea syndrome Active Condition Apr 29, 2016 Entered By: RUTH WHITEHEAD Comment: split night 04/23/16: AHI 11.8/hr, 82% low sat; 5-14cwp [facility] Osteoarthritis of knee Active Condition [facility] Osteoporosis Active Condition Oct 15, 2018 [...] MAGALLANES Comment: normal Vit D on replacement [facility] Pain of joint of knee Active Condition [facility] Panic attack Active Condition [facility] Primary subtalar osteoarthritis Active Condition [facility] Sensorineural hearing loss, bilateral Active Condition [facility] Shoulder pain Active Condition [facility] Social history baseline finding Active Condition Oct 15 9 Entered By: SRINI MAGALLANES Comment: marriedOct 15, 2018 Entered By: SRINI MAGALLANES 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, 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 Entered By: SRINI MAGALLANES Comment: [employer] 80-83, no combatJun 2018 Entered By: SRINI MAGALLANES Comment: quit smoking 2018 Entered By: SRINI MAGALLANES Comment: minimal etoh [facility] Spinal Stenosis of Lumbar Region (SCT 35540838) Active Condition [facility] TEST RESULTS Active Condition Oct 14, 2018 Entered By: SRINI MAGALLANES Comment: 09/13 colonoscopy normal, repeat 2 years per GI noteJun 2018 Entered By: SRINI MAGALLANES Comment: 10/05/18 bone density, right hip normal, will continue to follow [facility] Thrombocytopenia (SCT 408472334) Active Condition [facility] Tinnitus Active Condition [facility] Vitamin D deficiency Active Condition [facility] Ankle pain Inactive Condition 05/01/2017 [facility] Elevated blood pressure Inactive Condition 05/01/2017 [facility] Hearing loss Inactive Condition 05/01/2017 [facility] Palpitations Inactive Condition 05/01/2017 [facility] Syncope Inactive Condition 05/01/2017 [facility] Diagnosis: ICD-10-CM M25.569 Pain in unspecified knee Active Diagnosis [facility] Diagnosis: ICD-10-CM N17.9 Acute kidney failure, unspecified Active Diagnosis [facility] Diagnosis: ICD-10-CM B20 Human immunodeficiency virus [HIV] disease [facility] Diagnosis: ICD-10-CM I48.0 Paroxysmal atrial fibrillation Active Diagnosis [facility] Diagnosis: ICD-10-CM M75.101 Unsp rotatr-cuff tear/ruptr of right shoulder, not trauma Active Diagnosis [facility] Diagnosis: ICD-10-CM Z01.810 Encounter for preprocedural cardiovascular examination Active Diagnosis [facility] Diagnosis: ICD-10-CM F32.5 Major depressive disorder, single episode, in full remission Active Diagnosis [facility] Diagnosis: ICD-10-CM F33.41 Major depressive disorder, recurrent, in partial remission Active Diagnosis [facility] Diagnosis: ICD-10-CM Z79.01 custodial (current) use of anticoagulants Active Diagnosis [facility] Medications Combined list of outpatient medications from Department of Defense and [facility] Affairs facilities.Medications provided include 1) outpatient medications from the last 15 months, and 2) patient-reported medications. Medication Details Route Status Patient Instructions Prescription Expires Prescription Number Last Dispense Date Ordering Provider Order Date Order Qty Source ACETAMINOPH EN 500MG TAB TAKE TWO TABLETS BY MOUTH THREE TIMES A DAY NEEDED ORAL ACTIVE HIEN CUENCA 2017 [facility] APIXABAN 5MG TAB TAKE ONE TABLET BY MOUTH TWICE A DAY ORAL HOLD 03/13/2025 [id number] OFELIA CHEUNG NDERichard 2023 180 [facility] APIXABAN 5MG TAB TAKE ONE TABLET BY MOUTH TWICE A DAY ORAL DISCONT INUED 04/20/2024 [id number] DRAKE DIAS 2022 180 [facility] ASPIRIN 81MG TAB,EC TAKE ONE TABLET BY MOUTH EVERY DAY ORAL ACTIVE 04/22/2025 [id number] OFELIA CHEUNG NDER 2023 120 [facility] ASPIRIN 81MG TAB,EC TAKE ONE TABLET BY MOUTH EVERY DAY ORAL ACTIVE HIEN CUENCA 2017 [facility] ATORVASTATI N CA 80MG TAB TAKE ONE TABLET BY MOUTH AT BEDTIME CALL YOUR PROVIDER IF YOU HAVE MUSCLE PAIN, TENDERNE SS OR WEAKNESS ORAL ACTIVE 04/22/2025 [id number] 5 OFELIA CHEUNG NDER 2023 90 [facility] BICTEGRAVIR 50MG/EMTRIC ITABINE 200MG/TENOF OVIR AF 25MG TAB TAKE 1 TABLET BY MOUTH EVERY DAY FOR INFECTIO N DO NOT MIX WITH MINERALS /MVI FOR ADEQUATE ABSORPTI ON. FOR INFECTIO N DO NOT MIX WITH MINERALS /MVI FOR ADEQUATE ABSORPTI ON. ORAL HOLD 02/25/2025 [id number] OSWALDO EGAN 2023 90 [facility] BICTEGRAVIR 50MG/EMTRIC ITABINE 200MG/TENOF OVIR AF 25MG TAB TAKE 1 TABLET BY MOUTH EVERY DAY FOR INFECTIO N DO NOT MIX WITH MINERALS /MVI FOR ADEQUATE ABSORPTI ON. FOR INFECTIO N DO NOT MIX WITH MINERALS /MVI FOR ADEQUATE ABSORPTI ON. ORAL DISCONT INUED 08/08/2024 [id number] 4 JULISAINWHViola 2023 90 [facility] BUSPIRONE HCL 5MG TAB TAKE ONE TABLET BY MOUTH TWICE A DAY FOR ANXIETY ORAL ACTIVE 09/12/2024 [id number] 4 Omar MARCOS 2023 180 [facility] BUSPIRONE HCL 5MG TAB TAKE ONE TABLET BY MOUTH TWICE A DAY FOR ANXIETY ORAL DISCONT INUED BY PROVIDE R 06/12/2024 [id number] 4 Omar MARCOS 2023 120 [facility] BUSPIRONE HCL 5MG TAB TAKE ONE TABLET BY MOUTH TWICE A DAY FOR ANXIETY ORAL DISCONT INUED 05/15/2024 [id number] 4 LUIS DIAS [facility] 2023 120 [facility] CALCITRIOL 0.25MCG CAP TAKE ONE CAPSULE BY MOUTH DAILY ORAL ACTIVE 04/22/2025 [id number] 5 OFELIA CHEUNG NDER 2023 90 [facility] DICLOFENAC NA 1% GEL,TOP APPLY 4 GRAMS TOPICALL Y FOUR TIMES A DAY -DON'T EXCEED 16 GRAMS DAILY TO ANY AFFECTED LEG AREA. DON'T EXCEED 8 GRAMS DAILY TO ANY AFFECTED ARM AREA. DON'T EXCEED A TOTAL DOSE OF 32 GRAMS DAILY OVER ALL AREAS. *USE DOSING CARD TO MEASURE DOSE.* TOPICA L HOLD 05/28/2025 [id number] 5 ANA,CRYST AL L 2024 100 [facility] DILTIAZEM (EQV-TIAZAC AB4) 240MG 24HR CAP TAKE ONE CAPSULE BY MOUTH EVERY DAY FOR BLOOD PRESSURE /HEART ORAL 05/15/2024 [id number] LUIS DIAS [facility] 2023 30 [facility] ERGOCALCIFE ROL 1,250MCG (50,000UNIT ) CAP TAKE ONE CAPSULE BY MOUTH ONCE WEEKLY ON FRIDAY FOR VITAMIN D- SUPPLEME NT ORAL DISCONT INUED BY PROVIDE R 12/26/2024 [id number] LEONA HOBBS 2023 13 [facility] ERGOCALCIFE ROL 1,250MCG (50,000UNIT ) CAP TAKE ONE CAPSULE BY MOUTH ONCE WEEKLY ON FRIDAY FOR VITAMIN D- SUPPLEME NT ORAL DISCONT INUED 01/07/2024 [id number] 4 LEONA HOBBS 2022 13 [facility] FOLIC ACID 1MG TAB TAKE ONE TABLET BY MOUTH DAILY ORAL ACTIVE 04/22/2025 [id number] 5 OFELIA CHEUNG NDER 2023 90 [facility] METOPROLOL SUCCINATE 50MG TAB,SA TAKE ONE TABLET BY MOUTH NIGHTLY FOR BLOOD PRESSURE ORAL HOLD 12/18/2024 [id number] 5 LEONA HOBBS 2023 90 [facility] METOPROLOL SUCCINATE 50MG TAB,SA TAKE ONE TABLET BY MOUTH NIGHTLY FOR BLOOD PRESSURE ORAL DISCONT INUED 11/14/2023 [id number] 4 LEONA HOBBS 2022 90 [facility] MULTIVITAMI NS W/MINERALS CAP/TAB TAKE 1 CAP/TAB BY MOUTH DAILY ORAL ACTIVE 04/22/2025 [id number] 5 OFELIA CHEUNG NDERichard 2023 100 [facility] PANTOPRAZOL E NA 40MG TAB,EC TAKE ONE TABLET BY MOUTH EVERY DAY ORAL HOLD 12/18/2024 [id number] 5 LEONA HOBBS 2023 90 [facility] PANTOPRAZOL E NA 40MG TAB,EC TAKE ONE TABLET BY MOUTH EVERY DAY ORAL DISCONT INUED 11/14/2023 [id number] 4 LEONA HOBBS 2022 90 [facility] POTASSIUM CHLORIDE 20MEQ TAB,SA (DISPERSIBL E) TAKE ONE TABLET BY MOUTH DAILY FOR YAHAIRA Salazar SUPPLEME NT ORAL 05/08/2024 [id number] 4 LEONA HOBBS 2023 90 [facility] ROSUVASTATI N CA 20MG TAB TAKE ONE TABLET BY MOUTH EVERY DAY CALL YOUR PROVIDER IF YOU HAVE MUSCLE PAIN, TENDERNE SS OR WEAKNESS ORAL DISCONT INUED BY PROVIDE R 03/19/2025 [id number] VIRGINIE,CHR ISTINE KATELYNN 2023 90 [facility] TAMSULOSIN HCL 0.4MG CAP TAKE ONE CAPSULE BY MOUTH EVERY EVENING TAKE 30 MINUTES AFTER A MEAL ORAL ACTIVE 10/01/2024 [id number] FRANKY JOHNSON 2023 90 [facility] TAMSULOSIN HCL 0.4MG CAP TAKE ONE CAPSULE BY MOUTH EVERY EVENING TAKE 30 MINUTES AFTER A MEAL ORAL DISCONT INUED (EDIT) 05/15/2024 [id number] 4 DRAKE DIAS 2023 30 [facility] THIAMINE 100MG TAB TAKE ONE TABLET BY MOUTH DAILY ORAL ACTIVE 04/22/2025 [id number] 5 OFELIA CHEUNG NDER 2023 100 [facility] VENLAFAXINE HCL 150MG 24HR CAP,SA TAKE ONE CAPSULE BY MOUTH DAILY FOR DEPRESSI ON WITH FOOD - MOOD ORAL ACTIVE 12/26/2024 [id number] 5 Omar MARCOS IGISHA 2023 90 [facility] VENLAFAXINE HCL 150MG 24HR CAP,SA TAKE ONE CAPSULE BY MOUTH DAILY FOR DEPRESSI ON WITH FOOD - MOOD ORAL DISCONT INUED 09/12/2024 [id number] Omar MARCOS IGISHA 2023 90 [facility] VENLAFAXINE HCL 150MG 24HR CAP,SA TAKE ONE CAPSULE BY MOUTH DAILY WITH FOOD - MOOD ORAL DISCONT INUED BY PROVIDE R 06/12/2024 [id number] 4 Omar MARCOS IGISHA 2023 60 [facility] Allergies, Adverse Reactions, Alerts Combined list of allergies from Department of Defense and Veterans Affairs facilities. It does not include entries that were removed or entered in error. Substance Category Reaction Severity Reaction type Status Date Reported Comments Source ATORVASTATIN Propensity to adverse reactions to drug (finding) Muscle pain active 6 [facility] ATORVASTATIN Propensity to adverse reactions to drug (finding) active 7 [facility] PRAVASTATIN Propensity to adverse reactions to drug (finding) Muscle pain active 8 [facility] Immunizations Combined list of available immunizations from the Department of Defense and Veterans Affairs facilities. Immunization Series Date Given Administered By Site Reaction Lot Number CVX Code Drug Weed Thinner Status Comments Source INFLUENZA, SPLIT VIRUS, TRIVALENT, PF 2024 MELITA MYERS KATELYNN LEFT DELTO ID [id number] 140 complet ed Completed Series, [facility] TDAP 2024 MELITA MYERS RIGHT DELTO ID [id number] 115 complet ed Completed Series, [facility] INFLUENZA, INJECTABLE, QUADRIVALENT, PRESERVATIVE FREE 2023 RENNY PERKINS LEFT DELTO ID [id number] 150 complet ed [facility] INFLUENZA, INJECTABLE, QUADRIVALENT, PRESERVATIVE FREE 2021 150 complet ed [facility] ZOSTER RECOMBINANT 2 2021 187 complet ed [facility] INFLUENZA, INJECTABLE, QUADRIVALENT, PRESERVATIVE FREE 2020 150 complet ed [facility] ZOSTER RECOMBINANT 1 2020 187 complet ed [facility] COVID-19 (SHANNAN), VECTOR-NR, RS-AD26, PF, 0.5 ML 1 2020 212 complet ed HISTORICA L INFORMATI ON - FROM OTHER REGISTRY, [facility] INFLUENZA, INJECTABLE, QUADRIVALENT, PRESERVATIVE FREE 2019 150 complet ed [facility] HEP A, ADULT 2 2018 52 complet ed [facility] INFLUENZA, INJECTABLE, QUADRIVALENT, PRESERVATIVE FREE 2018 150 complet ed [facility] MENINGOCOCCAL MCV4P 2018 114 complet ed [facility] HEP A, ADULT 1 2018 52 complet ed [facility] INFLUENZA, INJECTABLE, QUADRIVALENT, PRESERVATIVE FREE 2017 150 complet ed [facility] INFLUENZA, SEASONAL, INJECTABLE, PRESERVATIVE FREE 2016 140 complet ed Right Deltoid 0.5ml IM [facility] INFLUENZA, SEASONAL, INJECTABLE, PRESERVATIVE FREE 2015 140 complet ed Right Deltoid 0.5ml IM [facility] INFLUENZA, UNSPECIFIED FORMULATION 2015 88 complet ed [facility] INFLUENZA, UNSPECIFIED FORMULATION 2015 88 complet ed Right Deltoid 0.5ml IM [facility] PNEUMOCOCCAL POLYSACCHARID E PPV23 2015 33 complet ed [facility] PNEUMOCOCCAL PCV13 (HISTORICAL) 2014 133 complet ed [facility] INFLUENZA, UNSPECIFIED FORMULATION 2013 88 complet ed Right Deltoid 0.5ml IM [facility] TDAP 2013 115 complet ed Right Deltoid 0.5ml IM [facility] INFLUENZA, UNSPECIFIED FORMULATION 2001 88 complet ed Left Deltoid 0.5ml IM [facility] PNEUMOCOCCAL POLYSACCHARID E PPV23 2001 33 complet ed Right Deltoid [facility] INFLUENZA, UNSPECIFIED FORMULATION 1998 88 complet ed [facility] TD(ADULT) UNSPECIFIED FORMULATION 1997 139 complet ed [facility] Results Combined list of recent chemistry, hematology and other laboratory results from Department of Defense and Veterans Affairs, ranging from 15 months to all on record, depending upon the facility. Order Name Results Value Reference Range Date Interpretation Specimen Comments Source COMPREHEN SIVE PNL ANION GAP IN SERUM OR PLASMA 12 mmol/L 5 - 15 05/27 Specimen Type: PLASMA Comment: eGFR was calculated using the CKD-EPI Creatinine (2020) equation. Ordering Provider: CROW CHEUNG ER Report Released Date/Time: Apr 23, 2024 08:34 AM Reporting Lab: [facility] [address] [facility] [address] Performing Lab: [facility] [address] [facility] [address] [facility] COMPREHEN SIVE PNL GLOMERULAR FILTRATION RATE/1.73 SQ M.PREDICTED [VOLUME RATE/AREA] IN SERUM, PLASMA OR BLOOD BY CREATININE- BASED FORMULA (CKD-EPI 2020) 75 mL/min /{1.73 _m2} 60 05/27 Specimen Type: PLASMA Comment: eGFR was calculated using the CKD-EPI Creatinine (2020) equation. Ordering Provider: CROW CHEUNG ER Report Released Date/Time: Apr 23, 2024 08:34 AM Reporting Lab: [facility] [address] [facility] [address] Performing Lab: [facility] [address] [facility] [address] [facility] COMPREHEN SIVE PNL GLUCOSE [MASS/VOLUM E] IN SERUM OR PLASMA 105 mg/dL 70 - 99 05/27 H Specimen Type: PLASMA Comment: eGFR was calculated using the CKD-EPI Creatinine (2020) equation. Ordering Provider: CROW CHEUNG ER Report Released Date/Time: Apr 23, 2024 08:34 AM Reporting Lab: [facility] [address] [facility] [address] Performing Lab: [facility] [address] [facility] [address] [facility] COMPREHEN SIVE PNL POTASSIUM [MOLES/VOLU ME] IN SERUM OR PLASMA 4.0 mmol/L 3.5 - 4.7 05/27 Specimen Type: PLASMA Comment: eGFR was calculated using the CKD-EPI Creatinine (2020) equation. Ordering Provider: CROW CHEUNG ER Report Released Date/Time: Apr 23, 2024 08:34 AM Reporting Lab: [address] [address] Performing Lab: [address] [address] [facility] COMPREHEN SIVE PNL SODIUM [MOLES/VOLU ME] IN SERUM OR PLASMA 139 mmol/L 136 - 145 05/27 Specimen Type: PLASMA Comment: eGFR was calculated using the CKD-EPI Creatinine (2020) equation. Ordering Provider: CROW CHEUNG ER Report Released Date/Time: Apr 23, 2024 08:34 AM Reporting Lab: [address] [address] Performing Lab: [facility] [address] [address] [facility] COMPREHEN SIVE PNL BILIRUBIN.T OTAL [MASS/VOLUM E] IN SERUM OR PLASMA 0.7 mg/dL 0.2 - 1.2 05/27 Specimen Type: PLASMA Comment: eGFR was calculated using the CKD-EPI Creatinine (2020) equation. Ordering Provider: CROW CHEUNG ER Report Released Date/Time: Apr 23, 2024 08:34 AM Reporting Lab: [address] [address] Performing Lab: [address] [address] [facility] COMPREHEN SIVE PNL PROTEIN [MASS/VOLUM E] IN SERUM OR PLASMA 7.1 g/dL 5.7 - 8.2 05/27 Specimen Type: PLASMA Comment: eGFR was calculated using the CKD-EPI Creatinine (2020) equation. Ordering Provider: CROW CHEUNG ER Report Released Date/Time: Apr 23, 2024 08:34 AM Reporting Lab: [address] [address] Performing Lab: [address] [address] [facility] COMPREHEN SIVE PNL ALBUMIN [MASS/VOLUM E] IN SERUM OR PLASMA 4.6 g/dL 3.4 - 5.0 05/27 Specimen Type: PLASMA Comment: eGFR was calculated using the CKD-EPI Creatinine (2020) equation. Ordering Provider: CROW CHEUNG ER Report Released Date/Time: Apr 23, 2024 08:34 AM Reporting Lab: [address] [address] Performing Lab: [address] [address] [facility] COMPREHEN SIVE PNL ALKALINE PHOSPHATASE [ENZYMATIC ACTIVITY/VO LUME] IN SERUM OR PLASMA 150 U/L 45 - 117 05/27 H Specimen Type: PLASMA Comment: eGFR was calculated using the CKD-EPI Creatinine (2020) equation. Ordering Provider: CROW CHEUNG Report Released Date/Time: Apr 23, 2024 08:34 AM Reporting Lab: [address] [address] Performing Lab: [address] [address] [facility] COMPREHEN SIVE PNL ALANINE AMINOTRANSF ERASE [ENZYMATIC ACTIVITY/VO LUME] IN SERUM OR PLASMA 47 U/L 10 - 65 05/27 Specimen Type: PLASMA Comment: eGFR was calculated using the CKD-EPI Creatinine (2020) equation. Ordering Provider: CROW CHEUNG ER Report Released Date/Time: Apr 23, 2024 08:34 AM Reporting Lab: [address] [address] Performing Lab: [address] [address] [facility] COMPREHEN SIVE PNL ASPARTATE AMINOTRANSF ERASE [ENZYMATIC ACTIVITY/VO LUME] IN SERUM OR PLASMA 35 U/L 10 - 37 05/27 Specimen Type: PLASMA Comment: eGFR was calculated using the CKD-EPI Creatinine (2020) equation. Ordering Provider: JONATAN,RAVIND ER Report Released Date/Time: Apr 23, 2024 08:34 AM Reporting Lab: [address] [address] Performing Lab: [address] [address] [facility] COMPREHEN SIVE PNL UREA NITROGEN [MASS/VOLUM E] IN SERUM OR PLASMA 17 mg/dL 7 - 21 05/27 Specimen Type: PLASMA Comment: eGFR was calculated using the CKD-EPI Creatinine (2020) equation. Ordering Provider: CROW CHEUNG ER Report Released Date/Time: Apr 23, 2024 08:34 AM Reporting Lab: [address] [address] Performing Lab: [address] [address] [facility] COMPREHEN SIVE PNL CALCIUM, TOTAL 9.9 mg/dL 8.7 - 10.4 05/27 Specimen Type: PLASMA Comment: eGFR was calculated using the CKD-EPI Creatinine (2020) equation. Ordering Provider: CROW CHEUNG ER Report Released Date/Time: Apr 23, 2024 08:34 AM Reporting Lab: [address] [address] Performing Lab: [address] [address] [facility] COMPREHEN SIVE PNL CARBON DIOXIDE, TOTAL [MOLES/VOLU ME] IN SERUM OR PLASMA 25 mmol/L 21 - 32 05/27 Specimen Type: PLASMA Comment: eGFR was calculated using the CKD-EPI Creatinine (2020) equation. Ordering Provider: CROW CHEUNG ER Report Released Date/Time: Apr 23, 2024 08:34 AM Reporting Lab: [address] [address] Performing Lab: [address] [address] [facility] COMPREHEN SIVE PNL CHLORIDE [MOLES/VOLU ME] IN SERUM OR PLASMA 102 mmol/L 98 - 109 05/27 Specimen Type: PLASMA Comment: eGFR was calculated using the CKD-EPI Creatinine (2020) equation. Ordering Provider: CROW CHEUNG ER Report Released Date/Time: Apr 23, 2024 08:34 AM Reporting Lab: [facility] [address] [facility] [address] Performing Lab: [facility] [address] [facility] [address] [facility] COMPREHEN SIVE PNL CREATININE [MASS/VOLUM E] IN URINE 1.11 mg/dL 0.73 - 1.18 05/27 Specimen Type: PLASMA Comment: eGFR was calculated using the CKD-EPI Creatinine (2020) equation. Ordering Provider: CROW CHEUNG Report Released Date/Time: Apr 23, 2024 08:34 AM Reporting Lab: [facility] [address] [facility] [address] Performing Lab: [address] [address] [facility] PTH INTCT PARATHYRIN. INTACT [MASS/VOLUM E] IN SERUM OR PLASMA 83.4 pg/mL 18.4 - 80.1 05/27 H Specimen Type: PLASMA No comment entered. Ordering Provider: NANCY SANDERSON Report Released Date/Time: May 11, 2024 04:06 PM Reporting Lab: [facility] [address] [facility] [address] Performing Lab: [facility] [address] [place] [address] [facility] URINE ALBUMIN/C REAT (RAND URINE) MICROALBUMI N [MASS/VOLUM E] IN URINE 1.5 mg/dL <2.0 - 2.0 05/27 Specimen Type: URINE No comment entered. Ordering Provider: NANCY SANDERSON Report Released Date/Time: May 11, 2024 04:06 PM Reporting Lab: [facility] [address] [facility] [address] Performing Lab: [facility] [address] [facility] [address] [facility] URINE ALBUMIN/C REAT (RAND URINE) CREATININE [MASS/VOLUM E] IN URINE 210.70 mg/dL 40 - 278 05/27 Specimen Type: URINE No comment entered. Ordering Provider: NANCY SANDERSON Report Released Date/Time: May 11, 2024 04:06 PM Reporting Lab: [facility] [address] [address] Performing Lab: [address] [address] [facility] URINE ALBUMIN/C REAT (RAND URINE) MICROALBUMI N/CREATININ E [RATIO] IN URINE 7 mg/g <30 - 30 05/27 Specimen Type: URINE No comment entered. Ordering Provider: NANCY SANDERSON Report Released Date/Time: May 11, 2024 04:06 PM Reporting Lab: [address] [address] Performing Lab: [address] [address] [facility] VITAMIN D 25-HYDROX Y 25-HYDROXYV ITAMIN D3 [MASS/VOLUM E] IN SERUM OR PLASMA 51.70 ng/mL 30 - 100 05/27 Specimen Type: SERUM Comment: Deficiency <20, Insufficien cy 20-30, Sufficiency 30-100, Toxicity >100 ng/mL Ordering Provider: CROW CHEUNG Report Released Date/Time: Apr 23, 2024 08:34 AM Reporting Lab: [address] [address] Performing Lab: [address] [address] [facility] COMPREHEN TIMI PNL ANION GAP IN SERUM [...] Mar 12, 2024 08:39 AM Reporting Lab: [address] [address] Performing Lab: [address] [address] [facility] COMPREHEN SIVE PNL GLOMERULAR FILTRATION RATE/1.73 [...] Mar 12, 2024 08:39 AM Reporting Lab: [address] [address] Performing Lab: [address] [address] [facility] COMPREHEN SIVE PNL GLUCOSE [MASS/VOLUM E] [...] 12, 2024 08:39 AM Reporting Lab: [place] [id number] Performing Lab: [address] [address] [facility] COMPREHEN SIVE PNL POTASSIUM [MOLES/VOLU ME] [...] Mar 12, 2024 08:39 AM Reporting Lab: [address] [address] Performing Lab: [address] [address] [facility] COMPREH SIVE PNL SODIUM [MOLES/VOLU ME] IN SERUM [...] Mar 12, 2024 08:39 AM Reporting Lab: [address] [address] Performing Lab: [place] [phone] [facility] COMPREHEN SIVE PNL BILIRUBIN.T OTAL [MASS/VOLUM [...] 12, 2024 08:39 AM Reporting Lab: [place] [phone] Performing Lab: [place] [id number] [place] [address] COMPREHEN SIVE PNL PROTEIN [MASS/VOLUM E] IN [...] Mar 12, 2024 08:39 AM Reporting Lab: [place] [phone] Performing Lab: [place] [phone] [facility] COMPREHEN SIVE PNL ALBUMIN [MASS/VOLUM E] [...] Mar 12, 2024 08:39 AM Reporting Lab: [place] [phone] Performing Lab: [place] [address] [place] [address] COMPREHLEXI SIVE PNL ALKALINE PHOSPHATASE [ENZYMATIC ACTIVITY/VO LUME] [...] Mar 12, 2024 08:39 AM Reporting Lab: [place] [phone] Performing Lab: [place] [phone] [facility] COMPREHEN SIVE PNL ALANINE AMINOTRANSF ERASE [ENZYMATIC [...] Mar 12, 2024 08:39 AM Reporting Lab: [place] [address] Performing Lab: [address] COMPREHEN SIVE PNL ASPARTATE AMINOTRANSF ERASE [ENZYMATIC [...] Mar 12, 2024 08:39 AM Reporting Lab: [place] [address] Performing Lab: [facility] [address] [place] [address] [facility] COMPREHEN SIVE PNL UREA NITROGEN [MASS/VOLUM E] [...] Mar 12, 2024 08:39 AM Reporting Lab: [place] [address] Performing Lab: [address] COMPREHLEXI SIVE PNL CALCIUM, TOTAL 9.7 mg/dL 8.7 [...] Mar 12, 2024 08:39 AM Reporting Lab: [place] [address] Performing Lab: [address] COMPREHEN SIVE PNL CARBON DIOXIDE, TOTAL [MOLES/VOLU [...] Mar 12, 2024 08:39 AM Reporting Lab: [place] [address] Performing Lab: [address] COMPREHEN SIVE PNL CHLORIDE [MOLES/VOLU ME] IN [...] Mar 12, 2024 08:39 AM Reporting Lab: [place] [address] Performing Lab: [place] [address] [place] [address] COMPREHEN SIVE PNL CREATININE [MASS/VOLUM E] IN [...] Mar 12, 2024 08:39 AM Reporting Lab: [address] [address] Performing Lab: [address] [address] [facility] HIV PCR QUANT (PANEL) HIV 1 [...] Mar 12, 2024 08:39 AM Reporting Lab: [address] [address] Performing Lab: [facility] [address] [place] [address] [facility] HIV PCR QUANT (PANEL) HIV 1 [...] Mar 12, 2024 08:39 AM Reporting Lab: [address] [address] Performing Lab: [facility] [address] [place] [address] [facility] LIPID PNL CHOLESTEROL IN HDL [MASS/VOLUM [...] Mar 12, 2024 08:39 AM Reporting Lab: [address] [address] Performing Lab: [address] [address] [facility] LIPID PNL TRIGLYCERID E [MASS/VOLUM E] IN [...] Mar 12, 2024 08:39 AM Reporting Lab: [address] [address] Performing Lab: [address] [address] [facility] LIPID PNL CHOLESTEROL IN LDL [MASS/VOLUM [...] Mar 12, 2024 08:39 AM Reporting Lab: [address] [address] Performing Lab: [address] [address] [facility] LIPID PNL CHOLESTEROL [MASS/VOLUM E] IN [...] Mar 12, 2024 08:39 AM Reporting Lab: [address] [address] Performing Lab: [address] [address] [facility] LIPID PNL CHOLESTEROL IN LDL [MASS/VOLUM [...] Mar 12, 2024 08:39 AM Reporting Lab: [address] [address] Performing Lab: [address] [address] [facility] LYMPH SUBSET PANEL 4 ([id number]) -[facility] CD3 CELLS [#/VOLUME] IN BLOOD 1191 {cells }/uL 570 - 2400 03/30 Specimen Type: BLOOD Comment: INTERPRETIV E INFORMATION : Lymphocyte Subset 4, Pct. and Ratio, WB The CD4 cells are [place] T-cells expressing both CD3 and CD4. The [...] efficacy of treatment. The Public Health Service ([facility]) has recommended that CD4 T-cell levels be monitored every three to six months in all HIV-infecte d persons. This test was developed and its performance characteris tics determined by [employer]. It has not been cleared or approved by the [place] Food and Drug Administrat Drimki. This test was performed in a CLIA certified laboratory and is intended for clinical purposes. Performed By: [email or web address] [address] [place] [address] Safety Sealer: Sabino Diaz MD, PhD CLIA Number: [id number] Ordering Provider: OSWALDO EGAN Report Released Date/Time: Mar 12, 2024 08:39 AM Reporting Lab: [facility] [address] [facility] [address] Performing Lab: [facility] [address] [facility] [address] [facility] LYMPH SUBSET PANEL 4 ([id number]) -[facility] CD3+CD4+ (T4 HELPER) CELLS [#/VOLUME] IN BLOOD 634 {cells }/uL 430 - 1800 03/30 Specimen Type: BLOOD Comment: INTERPRETIV E INFORMATION : Lymphocyte Subset 4, Pct. and Ratio, WB The CD4 cells are [place] T-cells expressing both CD3 and CD4. The [...] efficacy of treatment. The Public Health Service ([facility]) has recommended that CD4 T-cell levels be monitored every three to six months in all HIV-infecte d persons. This test was developed and its performance characteris tics determined by [employer]. It has not been cleared or approved by the [place] Food and Drug Administrat [employer]. This test was performed in a CLIA certified laboratory and is intended for clinical purposes. Performed By: [email or web address] [facility] [address] [place] [address] Safety Sealer: Sabino Diaz MD, PhD CLIA Number: [id number] Ordering Provider: OSWALDO EGAN Report Released Date/Time: Mar 12, 2024 08:39 AM Reporting Lab: [facility] [address] [address] Performing Lab: [address] [address] [facility] LYMPH SUBSET PANEL 4 ([id number]) -[facility] CD3+CD8+ (T8 SUPPRESSOR) CELLS [#/VOLUME] IN BLOOD 557 {cells }/uL 210 - 1200 03/30 Specimen Type: BLOOD Comment: INTERPRETIV E INFORMATION : Lymphocyte Subset 4, Pct. and Ratio, WB The CD4 cells are [place] T-cells expressing both CD3 and CD4. The [...] and its performance characteris tics determined by [email or web address]. It has not been cleared or approved by the [place] Food and Drug Administrat Drimki. This test was performed in a CLIA certified laboratory and is intended for clinical purposes. Performed By: [email or web address] [facility] [address] [place] [address] Safety Sealer: Sabino Diaz MD, PhD CLIA Number: [id number] Ordering Provider: OSWALDO EGAN Report Released Date/Time: Mar 12, 2024 08:39 AM Reporting Lab: [address] [address] Performing Lab: [address] [address] [facility] LYMPH SUBSET PANEL 4 ([id number]) -[facility] CD3 CELLS/100 CELLS IN SPECIMEN 84 62 - 87 03/30 Specimen Type: BLOOD Comment: INTERPRETIV E INFORMATION : Lymphocyte Subset 4, Pct. and Ratio, WB The CD4 cells are [place] T-cells expressing both CD3 and CD4. The [...] efficacy of treatment. The Public Health Service ([facility]) has recommended that CD4 T-cell levels be monitored every three to six months in all HIV-infecte d persons. This test was developed and its performance characteris tics determined by [employer]. It has not been cleared or approved by the [place] Food and Drug Administrat Drimki. This test was performed in a CLIA certified laboratory and is intended for clinical purposes. Performed By: [facility] [address] [place] [address] Safety Sealer: Sabino Diaz MD, PhD CLIA Number: [id number] Ordering Provider: OSWALDO EGAN Report Released Date/Time: Mar 12, 2024 08:39 AM Reporting Lab: [facility] [address] [facility] [address] Performing Lab: [facility] [address] [facility] [address] [facility] LYMPH SUBSET PANEL 4 ([id number]) -[facility] CD3+CD4+ (T4 HELPER) CELLS/100 CELLS IN BLOOD 45 32 - 64 03/30 Specimen Type: BLOOD Comment: INTERPRETIV E INFORMATION : Lymphocyte Subset 4, Pct. and Ratio, WB The CD4 cells are [place] T-cells expressing both CD3 and CD4. The [...] and its performance characteris tics determined by [email or web address]. It has not been cleared or approved by the [place] Food and Drug Administrat Drimki. This test was performed in a CLIA certified laboratory and is intended for clinical purposes. Performed By: [email or web address] [facility] [address] [place] [address] Safety Sealer: Sabino Diaz MD, PhD CLIA Number: [id number] Ordering Provider: OSWALDO EGAN Report Released Date/Time: Mar 12, 2024 08:39 AM Reporting Lab: [facility] [address] [address] Performing Lab: [address] [address] [facility] LYMPH SUBSET PANEL 4 ([id number]) -[facility] CD3+CD8+ (T8 SUPPRESSOR) CELLS/100 CELLS IN SPECIMEN 39 15 - 46 03/30 Specimen Type: BLOOD Comment: INTERPRETIV E INFORMATION : Lymphocyte Subset 4, Pct. and Ratio, WB The CD4 cells are [place] T-cells expressing both CD3 and CD4. The [...] and its performance characteris tics determined by [email or web address]. It has not been cleared or approved by the [place] Food and Drug Administrat Drimki. This test was performed in a CLIA certified laboratory and is intended for clinical purposes. Performed By: [email or web address] [facility] [address] [place], [place] [id number] Safety Sealer: Sabino Diaz MD, PhD CLIA Number: [id number] Ordering Provider: OSWALDO EGAN Report Released Date/Time: Mar 12, 2024 08:39 AM Reporting Lab: [facility] [address] [facility] [address] Performing Lab: [address] [address] [facility] LYMPH SUBSET PANEL 4 ([id number]) -[facility] CD3+CD4+ (T4 HELPER) CELLS/CD3+C D8+ (T8 SUPPRESSOR CELLS) CELLS [# RATIO] IN BLOOD 1.15 {ratio } 0.80 - 3.90 03/30 Specimen Type: BLOOD Comment: INTERPRETIV E INFORMATION : Lymphocyte Subset 4, Pct. and Ratio, WB The CD4 cells are [place] T-cells expressing both CD3 and CD4. The [...] by the [place] Food and Drug Administrat Drimki. This test was performed in a CLIA certified laboratory and is intended for clinical purposes. Performed By: [facility] [address] [place] [address], [place] [address] Safety Sealer: Sabino Diaz MD, PhD CLIA Number: [id number] Ordering Provider: OSWALDO EGAN Report Released Date/Time: Mar 12, 2024 08:39 AM Reporting Lab: [facility] [address] [facility] [address] Performing Lab: [facility] [address] [facility] [address] [facility] LYMPH SUBSET PANEL 4 ([id number]) -[facility] ANNOTATION COMMENT [INTERPRETA TION] NARRATIVE See Note 03/30 Specimen Type: BLOOD Comment: INTERPRETIV E INFORMATION : Lymphocyte Subset 4, Pct. and Ratio, WB The CD4 cells are [place] T-cells expressing both CD3 and CD4. The [...] by the [place] Food and Drug Administrat Drimki. This test was performed in a CLIA certified laboratory and is intended for clinical purposes. Performed By: [facility] [address] [place] [address] Safety Sealer: Sabino Diaz MD, PhD CLIA Number: [id number] Ordering Provider: OSWALDO EGAN Report Released Date/Time: Mar 12, 2024 08:39 AM Reporting Lab: [address] [address] Performing Lab: [address] [address] [facility] PHOS PHOS 2.9 mg/dL 2.4 - [...] Mar 12, 2024 08:39 AM Reporting Lab: [address] [address] Performing Lab: [address] [address] [facility] VITAMIN D 25-HYDROX Y 25-HYDROXYV ITAMIN D3 [MASS/VOLUM E] IN SERUM OR PLASMA 48.30 ng/mL 30 - 100 03/30 Specimen Type: SERUM Comment: Deficiency <20, Insufficien cy 20-30, Sufficiency 30-100, Toxicity >100 ng/mL Ordering Provider: OSWALDO EGAN Report Released Date/Time: Mar 12, 2024 08:39 AM Reporting Lab: [facility] [address] [facility] [address] Performing Lab: [facility] [address] [facility] [address] [facility] Vital Signs Combined list of inpatient and outpatient Vital Signs from Department of Defense and Veterans Affairs, ranging from 12 months to all on record, depending upon the facility. Vital Sign Value Date Comments Source SYSTOLIC BLOOD PRESSURE 152 05/27/2024 13:49:34 [facility] DIASTOLIC BLOOD PRESSURE 92 05/27/2024 13:49:34 [facility] PULSE OXIMETRY 94 05/27/2024 13:49:[address] [facility] WEIGHT 264.4 05/27/2024 13:49:34 [facility] BMI 33 kg/m2 05/27/2024 13:49:34 [facility] PAIN 7 05/27/2024 13:49:34 [facility] TEMPERATURE 97.7 05/27/2024 13:49:34 [facility] PULSE 103 05/27/2024 13:49:34 [facility] RESPIRATION 22 05/27/2024 13:49:34 [facility] SYSTOLIC BLOOD PRESSURE 153 05/11/2024 14:19:31 [facility] DIASTOLIC BLOOD PRESSURE 99 05/11/2024 14:19:31 [facility] PULSE OXIMETRY 94 05/11/2024 14:19:31 [facility] WEIGHT 268 05/11/2024 14:19:31 [facility] BMI 34 kg/m2 05/11/2024 14:19:31 [facility] PAIN 6 05/11/2024 14:19:31 [facility] HEIGHT 75 05/11/2024 14:19:31 [facility] TEMPERATURE 97.5 05/11/2024 14:19:31 [facility] PULSE 70 05/11/2024 14:19:31 [facility] RESPIRATION 20 05/11/2024 14:19:31 [facility] SYSTOLIC BLOOD PRESSURE 153 12/15/2023 13:59:53 [facility] DIASTOLIC BLOOD PRESSURE 104 12/15/2023 13:59:53 [facility] PULSE OXIMETRY 95 12/15/2023 13:59:53 [facility] WEIGHT 269 12/15/2023 13:59:53 [facility] BMI 34 kg/m2 12/15/2023 13:59:53 [facility] PAIN 5 12/15/2023 13:59:53 [facility] HEIGHT 75 12/15/2023 13:59:53 [facility] TEMPERATURE 97.7 12/15/2023 13:59:53 [facility] PULSE 73 12/15/2023 13:59:53 [facility] SYSTOLIC BLOOD PRESSURE 146 12/10/2023 11:45:29 [facility] DIASTOLIC BLOOD PRESSURE 99 12/10/2023 11:45:29 [facility] PULSE OXIMETRY 94 12/10/2023 11:45:29 [facility] WEIGHT 274 12/10/2023 11:45:29 [facility] BMI 34 kg/m2 12/10/2023 11:45:29 [facility] TEMPERATURE 97.8 12/10/2023 11:45:29 [facility] PULSE 76 12/10/2023 11:45:29 [facility] RESPIRATION 16 12/10/2023 11:45:29 [facility] Encounters Combined list of: 1) Encounters from Department of Veterans Affairs facilities going backup to the last 18 months, not all [place] inpatient encounters are included; 2) Encounters 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 BEVERLEY SAMUEL ANA MARIA A 03/17 [facility] QNHP OL DIG ASSMT&MGMT 5-10 [id number] Diagnos is: ICD-10- CM I48.0 Paroxys mal atrial fibrill alexion ELIAN COOPER 04/17 [facility] Outpatient Encounter [id number] 04/18 [facility] Outpatient Encounter [id number] 05/02 [facility] Outpatient Encounter [id number] 05/08 [facility] Outpatient Encounter [id number] 05/08 [facility] Outpatient Encounter [id number] 05/15 [facility] Outpatient Encounter [id number] 05/17 [facility] OFFICE O/P EST MOD 30 MIN [id number] Diagnos is: ICD-10- CM B20 Human immunod eficien cy virus [HIV] disease OSWALDO EGAN 05/20 [facility] Outpatient Encounter [id number] 05/20 [facility] OFFICE O/P EST MOD 30 MIN [id number] [id number] Diagnos is: ICD-10- CM N17.9 Acute kidney failure , unspeci fied CHOLO MICHELNANCY 05/20 [facility] Outpatient Encounter [id number] 05/20 [facility] Outpatient Encounter [id number] 05/20 [facility] Outpatient Encounter [id number] 05/21 [facility] Outpatient [facility]counter [id number] [id number] 05/21 [facility] Outpatient Encounter [id number] [id number] 05/22 [facility] Outpatient Encounter [id number] 05/22 [facility] Outpatient [facility]counter [id number] 05/23 [facility] Outpatient Encounter [id number] [id number] 05/23 [facility] Outpatient Encounter [id number] 06/12 [facility] Outpatient Encounter [id number] 06/12 [facility] OFFICE O/P EST MOD 30 MIN [id number] Diagnos is: ICD-10- CM F33.41 Major depress ketty disorde r, recurre nt, in partial remissi on [facility] 06/12 [facility] Outpatient Encounter [id number] [id number] 08/18 [facility] Outpatient Encounter [id number] [id number] 08/18 [facility] Outpatient Encounter [id number] [id number] 08/20 [facility] Outpatient Encounter [id number] [id number] 08/21 [facility] Outpatient Encounter [id number] 08/26 [facility] Outpatient Encounter [id number] 08/27 [facility] PSYTX W PT W E/M 30 MIN [id number] [id number] Diagnos is: ICD-10- CM F32.5 Major depress ketty disorde r, single episode , in full remissi on [facility] 09/11 [facility] Outpatient Encounter [id number] 09/15 [facility] Encounter [id number] [id number] 09/30 [facility] [id number] [id number] 09/30 [facility] Encounter [id number] [id number] 10/28 [facility] Encounter [id number] 11/09 [facility] Encounter [id number] [id number] 11/10 [facility] En[facility] [id number] [id number] 11/10 [facility] Outpatient Encounter [id number] [id number] 11/18 [facility] Outpatient Encounter [id number] [id number] FRANCINESHYANN 11/25 [facility] Outpatient Encounter [id number] [id number] 11/30 [facility] Outpatient Encounter [id number] [id number] 12/01 [facility] Outpatient Encounter [id number] [id number] 12/01 [facility] Outpatient Encounter [id number] [id number] 12/07 [facility] OFF/OP CONSLTJ NEW/[place] HI 55 [id number] [id number] Diagnos is: ICD-10- CM Z01.810 Encount er for preproc edural cardiov ascular examina ANTONI Gray 12/09 [facility] Outpatient Encounter [id number] 12/11 [facility] OFFICE O/P EST MOD 30 MIN [id number] [id number] Diagnos is: ICD-10- CM M75.101 Unsp rotatr- cuff tear/ru ptr of right shoulde r, not trauma Lencho JOHNSON 12/14 [facility] Outpatient Encounter [id number] [id number] 12/21 [facility] Outpatient Encounter [id number] [id number] 12/23 [facility] Outpatient Encounter [id number] [id number] 12/30 [facility] Outpatient Encounter [id number] [id number] 01/26 [facility] Outpatient Encounter [id number] 02/04 [facility] Outpatient Encounter [id number] [id number] 02/15 [facility] Outpatient Encounter [id number] [id number] 02/16 [facility] Outpatient Encounter [id number] [id number] 02/17 [facility] Outpatient Encounter [id number] [id number] 02/[address] [facility] Outpatient Encounter [id number] SHYANN ESCAMILLA 03/02 [facility] QNHP OL DIG ASSMT&MGMT 5-10 [id number] Diagnos is: ICD-10- CM I48.0 Paroxys mal atrial fibrill ation ELIAN COOPER 03/12 [facility] Outpatient Encounter [id number] 03/12 [facility] Outpatient Encounter [id number] [id number] 03/18 [facility] Outpatient Encounter [id number] [id number] 03/30 [facility] Outpatient Encounter [id number] [id number] 04/05 [facility] Outpatient Encounter [id number] 04/08 [facility] Outpatient Encounter [id number] [id number] 04/09 [facility] Outpatient Encounter [id number] [id number] Diagnos is: ICD-10- CM B20 Human immunod eficien cy virus [HIV] disease DAYA EGANLOUISA 04/14 [facility] Outpatient Encounter [id number] 04/16 [facility] Outpatient Encounter [id number] 04/20 [facility] Outpatient Encounter [id number] LEE REGALADO 04/23 [facility] Outpatient Encounter [id number] SAM STRICKLAND 05/06 [facility] OFFICE O/P EST MOD 30 MIN [id number] Diagnos is: ICD-10- CM N17.9 Acute kidney failure , unspeci fied NANCY JAIMES 05/11 [facility] Outpatient Encounter [id number] 05/25 [facility] Outpatient Encounter [id number] 05/25 [facility] Outpatient Encounter [id number] 05/26 [facility] Outpatient Encounter [id number] 05/27 [facility] OFFICE O/P EST LOW 20 MIN [id number] Diagnos is: ICD-10- CM M25.569 Pain in unspeci fied knee RASHID PEREZ L 05/27 [facility] Outpatient Encounter [id number] 05/27 [facility] Outpatient Encounter [id number] 05/31 [facility] Outpatient [facility]counter [id number] 05/31 [facility] Out[facility]counter [id number] 05/31 [facility] Out[facility]counter [id number] 05/31 [facility] Outpatient [facility]counter [id number] 06/01 [facility]counter [id number] [id number] 06/02 [facility] Outpatient Encounter [id number] SHYANN ESCAMILLA 06/[address] [facility] Outpatient Encounter [id number] 06/07 [facility] Out[facility] Encounter [id number] [id number] 06/07 [facility] [facility] En[facility] [id number] 06/09 [facility] En[facility] [id number] 06/10 [facility] En[facility] [id number] 06/17 [facility] Outpatient Encounter [id number] 1 SHYANN ESCAMILLA 06/25 [facility] En[facility] [id number] 06/25 [facility] En[facility] [id number] 07/09 [facility] Outpatient Encounter [id number] 07/30 [facility] Outpatient Encounter [id number] 08/13 [facility] Social History Combined list of available smoking, tobacco, and other social history from Department of Defense and Veterans Affairs facilities. Social History Type Response Date Comment Source Tobacco smoking status SCIS VA-TOBACCO FORMER USER 12/10/2023 [facility] History of tobacco use VA-TOBACCO QUIT 15 YRS OR MORE 12/10/2023 [facility] History of tobacco use VA-TOBACCO FORMER USER 08/13/2022 [facility] History of tobacco use VA-TOBACCO FORMER USER 04/03/2021 [facility] History of tobacco use VA-TOBACCO QUIT 5 TO < 15 YRS 01/18/2020 [facility] History of tobacco use VA-TOBACCO QUIT 1 TO < 5 YRS 11/27/2018 [facility] History of tobacco use VA-TOBACCO FORMER USER 01/23/2018 [facility] History of tobacco use TOBACCO CESSATION MEDS REFUSED 05/01/2017 STOP 10YEARS AGO [facility] History of tobacco use TOBACCO CESSATION MEDS REFUSED 03/18/2016 STOPPED 8YRS AGO [facility] History of tobacco use LIFETIME NON-USER OF TOBACCO 12/16/2013 [facility] Plan of Care List of future care activities from Department of [facility] facilities. Additional future care activities may [...] Source 12/31/2023 ADVANCE DIRECTIVE DISCUSSION Martin [facility]
--- OUTSIDE RECORDS SUMMARY | 2024-08-13 20:00 | XMS_ITS | Encounter Summary ---
Author Organization [facility] Address [address] [place] [address] Care Team Providers Care Flat Bed Operator Name Role Phone Concepcion Zeng NP Unavailable Unavailable Gregory Hamlin Unavailable [phone] Chris Hamlin ENTRY LEVEL Primary Care Provider Arcadio Gilmore DO Unavailable [phone] Enzo Gutierrez MD Unavailable Encounter Details Date Type Department Care Team (Late st Contact Info) Description 07/25/2022 Prep for Procedure [facility] Pre-Admission Testing [address] [place] [address] Nehemias Dejesus MD [address] [place] [address] Social History Tobacco Use Types [...] on file 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 Gender Identity Male 05/30/2021 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 Sexual Orientation Not on file Occupation Industry Job Start Date Job End Date retired [employer] Not on file Not on file Not on file documented as of this encounter Plan of Treatment Not on file documented as of this encounter Results * PARTIAL THROMBOPLASTIN TIME,PTT (08/13/2022 11:00 AM CDT) PTT 34.2 26.4 - 37.3 SEC 08/13/2022 11:21 AM CDT [facility] 08/13/2022 11:0 0 AM CDT us Nehemias Dejesus MD LABORATORY Final Resul t Performing Organization Address [facility] Co de Phone Number [facility] [address] [place] [address], * (ABNORMAL) PROTIME/INR, VENOUS (08/13/2022 11:00 AM CDT) PROTIME 13.7(H) 9.8 - 12.5 SEC 08/13/2022 11:21 AM CDT [facility] INR 1.2 08/13/2022 11:21 AM CDT [facility] Comment: TREATMENT OR PROPHYLAXIS AGAINST: THERAPEUTIC RANGE (INR): VENOUS THROMBOSIS 2.0-3.0 PULMONARY EMBOLUS 2.0-3.0 MECHANICAL PROSTHETIC VALVES 2.5-3.5 08/13/2022 11:0 0 AM CDT us Nehemias Dejesus MD LABORATORY Final Resul t Performing Organization Address [facility] Co de Phone Number [facility] [address] [place] [address], * (ABNORMAL) COMPREHENSIVE METABOLIC PANEL (08/13/2022 11:00 AM CDT) SODIUM S/P/B 139 136 - 145 MMOL/L 08/13/2022 11:35 AM CDT [facility] POTASSIUM S/P/B 4.1 3.6 [...] 15 - 37 U/L 08/13/2022 11:[address] [facility] ALT 41 16 - 61 U/L 08/13/2022 11:[address] [facility] TOTAL PROTEIN S/P/B 6.6 6.4 - 8.2 G/DL 08/13/2022 11:35 AM CDT [facility] ALBUMIN S/P/B 3.7 3.4 - 5.0 G/DL 08/13/2022 11:35 AM CDT [facility] ANION GAP 5.6 5 - 15 MMOL/L 08/13/2022 11:35 AM CDT [facility] OSMOLALITY (CALC) 291 MOSM/KG 023 11:35 AM CDT [facility] GFR ESTIMATE 71(L) >90 ML/MIN/1. 73 M2 08/13/2022 11:35 AM CDT [facility] GFR NOTES GFR REFERENCE S: 08/13/2022 11:35 AM CDT [facility] Comment: THE ESTIMATED GFR [...] Nehemias Dejesus MD LABORATORY Final Resul t [facility] [address] [place] [address], * (ABNORMAL) CBC W/DIFF AUTOMATED (08/13/2022 11:00 AM CDT) WBC 6.05 4.00 - 10.80 x10'3/uL 08/13/2022 11:10 AM CDT [facility] RBC 5.07 4.50 - 6.10 x10'6/uL 08/13/2022 11:10 AM T [facility] HGB 15.7 13.0 - 18.0 G/DL 08/13/2022 11:10 AM CDT [facility] HCT 46.3 37.0 - 52.0 % 08/13/2022 11:10 AM T [facility] MCV 91.3 78.0 - 100.0 FL 08/13/2022 11:10 AM T [facility] MCH 31.0 27.0 - 31.0 PG 08/13/2022 11:[address] [facility] MCHC 33.9 33.0 - 36.0 G/DL 08/13/2022 11:[address] [facility] RDW 12.6 11.5 - 14.5 % 08/13/2022 11:10 AM T [facility] PLT 185 150 - 350 x10'3/uL 08/13/2022 11:[address] [facility] MPV 8.3 7.4 - 10.4 FL 08/13/2022 11:10 AM T [facility] DIFFERENTIAL TYPE AUTOMATED 08/13/2022 11:10 AM T [facility] SEG NEUTROPHILS 67.2 % 11:10 AM T [facility] LYMPHOCYTES 19.8 % 08/13/2022 11:10 AM T [facility] MONOCYTES 8.6 % 08/13/2022 11:10 AM T [facility] EOSINOPHILS 2.6 % 08/13/2022 11:10 AM T [facility] BASOPHILS 1.0 % 08/13/2022 11:10 AM CDT [facility] IMMATURE GRANS % 0.8 % 08/14/19 11:10 AM CDT [facility] NRBC 0.0 % 08/13/2022 11:10 AM CDT [facility] ABS. NEUTROPHILS 4.06 1.60 - 8.30 x10'3/uL 08/13/2022 11:10 AM CDT [facility] ABS. LYMPHOCYTES 1.20 0.80 - 4.70 x10'3/uL 08/13/2022 11:10 AM CDT [facility] ABS. MONOCYTES 0.52 0.00 - 1.50 x10'3/uL 08/13/2022 11:10 AM CDT [facility] ABS. EOSINOPHILS 0.16 0.00 - 0.40 x10'3/uL 08/13/2022 11:10 AM CDT [facility] ABS. BASOPHILS 0.06 0.00 - 0.20 x10'3/uL 08/13/2022 11:10 AM CDT [facility] ABS. IMMATURE GRANULOCYTES 0.05(H) 0.00 - 0.03 x10'3/uL 08/13/2022 11:10 AM CDT [facility] ABS. NUCLEATED RBC'S 0.00 0.00 x10'3/uL 08/13/2022 11:10 AM T [facility] 08/13/2022 11:0 0 AM CDT us Nehemias Dejesus MD LABORATORY Final Resul t [facility] [address] 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 documented as of this encounter Care Teams Flat Bed Operator Relationship Specialty Start Date End Date Chris Hamlin NP [address] [place] [address] [address], [place] [address] PCP - General NURSE PRACTITIONER 04/08/22 Concepcion Zeng NP Referring Physician CARDIOVASCULAR DISEASE 10/09/17 Gregory Hamlin PA PHYSICIAN RETURN CLERK 01/17/22 Arcadio Gilmore DO [address] [place] [address] E, [place] [address] Consulting Physician CARDIOVASCULAR DISEASE 05/30/22 Enzo Gutierrez MD [facility] [address] [place] [address] Consulting Physician INTERVENTIONAL CARDIOLOGY 11/21/22 documented as of this encounter
--- OUTSIDE RECORDS SUMMARY | 2024-08-13 20:00 | XMS_ITS | Encounter Summary ---
Author Organization [facility] Address [facility] [place] [address] Care Team Providers Care Tire Mold Engraver Name Role Phone New Referring, Provider Primary Care Provider Un available Concepcion Zeng NP Unavailable Unavailable Kevin Ontiveros MD Primary Care Provider [phone] Kevin Ontiveros MD Unavailable [phone] Gregory Hamlin Unavailable [phone] Chris Hamlin NP Primary Care Provider [phone] Arcadio Gilmore DO Unavailable [phone] Enzo Gutierrez MD Unavailable Encounter Details Date Type Department Care Team (Late st Contact Info) Description 07/12/2017 Abstract [facility] CONVERSION [address] [place] [address] , Generic Conversion, Social History Tobacco Use Types Packs/Day Years Used Date Smoking Tobacco: Never Assessed Sex and Gender Information Value Date Recorded Sex Assigned at Not on file Legal Sex Male 11:09 PM MANAGER MENTAL HEALTH Gender Identity Male 05/30/2021 2:32 PM MANAGER MENTAL HEALTH Sexual Orientation Not on file documented as [...] documented as of this encounter Care Teams Tire Mold Engraver Relationship Specialty Start Date End Date New Referring, Provider PCP - General UNKNOWN PHYSICIAN SPECIALTY 10/09/17 12/18/17 Kevin Ontiveros MD [address] [place] [address] PCP - General FAMILY PRACTICE 12/25/17 04/07/22 Kevin Ontiveros MD [address] [place] [address] PCP - [place] PROVIDER FAMILY PRACTICE 12/25/17 04/07/22 Chris Hamlin NP [address] [place], [place] [address], [place] [address] PCP - General NURSE PRACTITIONER 04/08/22 Concepcion Zeng NP Referring Physician CARDIOVASCULAR DISEASE 10/09/17 Gregory Hamlin PA [address] [place] [address] PHYSICIAN TUNNELING MACHINE OPERATOR 01/17/22 Arcadio Gilmore DO [address] [place], [place] [address], [place], [place] [address] Consulting Physician CARDIOVASCULAR DISEASE 05/30/22 Enzo Gutierrez MD [address] [place] [address] Consulting Physician INTERVENTIONAL CARDIOLOGY 11/21/22 documented as of this encounter
--- OUTSIDE RECORDS SUMMARY | 2024-08-13 20:00 | XMS_ITS | Clinical Summary ---
Author Organization [facility] Address [address] [place] [address] Care Team Providers Care Hand I Cutter Name Role Phone Concepcion Zeng NP Unavailable Unavailable Gregory Hamlin Unavailable [phone] Chris Hamlin NP Primary Care Provider Enzo Gutierrez MD Unavailable Allergies Active Allergy Reactions Criticality Noted Date Comments Statins Myalgias Low 05/24/2019 Doesn't remember reactions Info from 06/12/21 neuro O.V. Medications vitamin D2, ergocalciferol, 67686 UNITS capsule Take 1 capsule (50,000 Units [...] D-Hyaluron Acd (KARYN GLUCOSAMINE PLUS VIT D3) 1030-5937-1.65 MG-UNIT-MG Tab Take by mouth every morning. [...] problems. Assessment & Plan (06/12/2021 3:05 PM CHARCOAL UNLOADER): Plan: I have discussed the differential diagnosis [...] plan. Assessment & Plan (06/12/2021 3:04 PM CHARCOAL UNLOADER): Plan: Please see tussive syncope for primary diagnostic and treatment plan. Atypical atrial flutter ([facility]) 2019 penitentiary current use of antiarrhythmic drug 08/2017 Hypertension 09/30/2017 Mixed hyperlipidemia 09/30/2017 penitentiary current use of anticoagulant 8 Paroxysmal atrial fibrillation ([facility]) 09/29/2017 Family History Medical History Relation [...] on file Legal Sex Male 11:09 PM CHARCOAL UNLOADER Gender Identity Male 05/30/2021 2:32 PM CHARCOAL UNLOADER Sexual Orientation Not on file Occupation Industry Job Start Date Job End Date [employer] Not on file Not on file Not [...] 2023-2 5 season) 2023 07/13/2020 PHQ-2 (Physician Sparkman) 04/28/2024 Meningococcal B Vaccine Aged Out No [...] this topic Medical Devices Implanted Type Area Live Truck Technician Device Identifier Shelf Expiration Date Model / Serial / Lot Leg Hardware Ankle Hardware Quattro Link Knotless [place] 4.5mm Peek [place] Implanted:Qty: 1 on 08/15/2022 by Randall Dejesus MD at [facility] Right: Shoulder [facility] - [employer] 06/18/2027 [id number] / / [id number] Quattro Link Knotless [place] 4.5mm Peek [place] Implanted:Qty: 2 on 08/15/2022 by Randall Dejesus MD at [facility] Right: Shoulder [facility] [employer] 03/29/2027 [id number] / / [id number] Quattro Link Knotless [place] 4.5mm Peek [place] Implanted:Qty: 1 on 08/15/2022 by Randall Dejesus MD at [facility] Right: Shoulder [facility] - [employer] 06/14/2027 [id number] / / [id number] Explanted Type Area Live Truck Technician Device Identifier Shelf Expiration Date Model / Serial / Lot [employer] Medical Lock-Stitch Procedure Kit Explanted:Qty: 1 on 08/15/2022 by Randall Dejesus MD at [facility] Right: Shoulder [employer] 03/05/2025 CM-[id number] / / [id number] Broadband Tape Explanted:Qty: 1 on 08/15/2022 by Randall Dejesus MD at [facility] Right: Shoulder [employer] [id number] / / [id number] Insurance [employer] Advance Directives * Full Code (Latest Code Status on File) Date Activated Date Inactivated Comments 11/19/2019 12:28 PM 11/19/2019 5:55 PM * Full Code Date Activated Date Inactivated Comments 07/12/2019 2:23 PM 07/12/2019 7:31 PM * Full Code Date Activated Date Inactivated Comments 09/30/2017 1:13 PM 09/30/2017 7:10 PM Care Teams Hand I Cutter Relationship Specialty Start Date End Date Chris Hamlin NP [address] [facility] [address], [place] [address] PCP - General NURSE PRACTITIONER 04/08/22 Concepcion Zeng NP Referring Physician CARDIOVASCULAR DISEASE 10/09/17 Gregory Hamlin PA PHYSICIAN DIRECTOR OF LOSS PREVENTION 01/17/22 Enzo Gutierrez MD [facility] [address] [facility] [place] [address] Consulting Physician INTERVENTIONAL CARDIOLOGY 11/21/22
--- OUTSIDE RECORDS SUMMARY | 2024-08-13 20:00 | XMS_ITS | Clinical Summary ---
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 Take 1 tablet (20 mg total) by mouth daily 90 tablet 3 03/18/20 24 Active folic acid (FOLVITE) 1 mg tablet Take 1 tablet (1,000 mcg total) by mouth daily 04/21/20 24 Active calcitRIOL (ROCALTROL) 0.25 mcg capsule Take 1 capsule (0.25 mcg total) by mouth daily 04/21/20 24 Active multivitamin-skip miner als-lutein (Multivitamin 50 Plus) tablet Take by mouth 04/21/20 24 Active Active Problems Problem Noted Date Diagnosed Date Coronary artery disease invo lving algaaciq coronary artery of algaaciq heart without angina pectoris 06/22/2024 NSTEMI (non-ST [...] Department Care Team Description 08/02/2024 Results Follow-Up [facility] Cardiology [address] [place] [address] Medical Office Building [address] [place] [address] Denys Capone MD 07/28/2024 2:00 PM CDT Office Visit [facility] Group Orthopedic and Sports Medicine [address] [place] [phone] Altaf Naidu MD Primary osteoarthritis of left knee (Primary Dx); HIV infection, unspecified symptom status (HCC) 07/28/2024 Telephone [facility] Group Orthopedic and Sports Medicine [address] [place] [phone] Altaf Naidu MD Surgical Clearance 07/28/2024 Orders Only [facility] Orthopedic and Sports Medicine [address] [place] [phone] Altaf Naidu MD Pre-op testing (Primary Dx); S/P total knee arthroplasty, left 07/16/2024 Telephone [facility] Cardiology [address] [facility] [address] [place] [phone] Harris Nevarez MD 07/01/2024 Telephone [facility] Orthopedics and Sports Medicine [address] [facility] [address] [place] [phone] Altaf Naidu MD 06/29/2024 3:05 PM ROOF SERVICE TECHNICIAN Ancillary Procedure [facility] Medical [facility] Imaging at [address] [phone] Bilateral chronic knee pain; Chronic pain of both knees 06/29/2024 3:00 PM ROOF SERVICE TECHNICIAN Ancillary Procedure [facility] Imaging at [address] [phone] Bilateral chronic knee pain; Chronic pain of both knees 06/29/2024 3:00 PM ROOF SERVICE TECHNICIAN Office Visit [facility] Orthopedic and Sports Medicine [address] [place] [phone] Una Garcia PA Primary osteoarthritis of both knees (Primary Dx); Chronic pain of both knees 06/29/[address]th [place] [address] [place] [address] Denys Capone MD 06/23/2024 Telephone [facility] Non-Oncology Infusion [address] [place] [phone] Harris Nevarez MD 06/22/2024 11:00 AM ROOF SERVICE TECHNICIAN Office Visit [facility] Cardiology [address] [facility] [address] [place] [address] Harris Nevarez MD Supraventricular tachycardia (Primary Dx); Paroxysmal atrial fibrillation (HCC); 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 06/22/2024 Telephone [facility] Cardiology [address] [place] [address] 8th [place] [address] [place] [address] Danielle Meek 06/10/2024 1:00 PM ROOF SERVICE TECHNICIAN Office Visit [facility] Cardiology [address] [place] [address] 8th [place] [address] [place] [address] Denys Capone MD Supraventricular tachycardia; Acute coronary syndrome (HCC) 05/31/2024 Telephone [facility] Orthopedics and Sports Medicine [address] [place] [address] [address] [place] [address] Altaf Naidu MD from Last [...] on file Legal Sex Male 9:53 AM ROOF SERVICE TECHNICIAN Gender Identity Not on file Sexual Orientation Not on file Obstetrics History Last Filed Vital Signs Vital Sign Reading Time Taken Comments Blood Pressure 167/112 07/28/2024 1:56 PM CDT Pulse 86 07/28/2024 1:56 PM CDT Temperature 36.3 C (97.4 F) 12/24/2023 3:00 PM CDT Respiratory Rate 16 06/29/2024 3:08 PM ROOF SERVICE TECHNICIAN Oxygen Saturation 95% 06/22/2024 11: 56 AM ROOF SERVICE TECHNICIAN Inhaled Oxygen Concentration - - Weight 119.9 kg (264 lb 6.4 oz) 07/28/2024 1:56 PM CDT Height 190.5 cm (6' 3 ) 07/28/2024 1:56 PM CDT Body Mass Index 33.05 07/28/2024 1:56 PM CDT Plan of Treatment Upcoming Encounters Date Type Department Care Team (Latest Contact Info) Description 09/17/2024 10:55 AM CDT Hospital Encounter [facility] Electrophysiology Lab [address] [place] [phone] Denys Capone MD [address] [place], [place] [phone] Paroxysmal atrial fibrillation (HCC) 09/17/2024 10:55 AM CDT - 09/17/2024 2:50 PM CDT Surgery [facility] Electrophysiology Lab [address] [place] [phone] Denys Capone MD [address] [place] [id number] ABLATION ATRIAL FIBRILLATION (A-FIB) VIA PULMONARY VEIN ISOLATION [id number] Health Maintenance Due Date Last Done Comments [...] history exists Medical Devices Implanted Type Area Cut Off Worker Device Identifier Shelf Expiration Date Model / Serial / Lot Holli Endoscopy [place] Suture Alphavent 4.75mm With 3-Strands 1.4mm Xbraid Tt [id number] - [id number] Implanted:Qty: 1 on 12/24/2023 by Altaf Naidu MD at [facility] Right: Shoulder Holli Endoscopy [id number] 10/23/2024 [id number] / / [id number] [employer] Corkscrew L4.75 Mr Tape Full Thread [place] Suture Biocomposite Sterile Disposable Latex Free [id number] - [id number] Implanted:Qty: 1 on 12/24/2023 by Altaf Naidu MD at [facility] Right: Shoulder [employer] [id number] 08/25/2026 [id number] / / [id number] Procedures Procedure Name Priority Date/Time Associated Diagnosis Comments XR KNEE BILATERAL 4 OR MORE VIEWS Schedule Routine, Read Routine (OP Routine) 06/29/2024 3:01 PM ROOF SERVICE TECHNICIAN Bilateral chronic knee pain Chronic pain of both knees XR PELVIS 1 OR 2 VIEWS Schedule Routine, Read Routine (OP Routine) 06/29/2024 3:01 PM ROOF SERVICE TECHNICIAN Bilateral chronic knee pain Chronic pain of both knees ECG 12-LEAD Routine 06/10/2024 2:10 PM ROOF SERVICE TECHNICIAN Supraventricular tachycardia POCT LIPID PANEL Routine 03/18/2024 2:14 PM ROOF SERVICE TECHNICIAN Lipid screening URINALYSIS AND REFLEX TO MICROSCOPIC AND CULTURE Routine 11/23/2023 6:08 PM CDT from Last 3 Months or Most Recently Relevant to Health Maintenance Results * XR Knee Bilateral 4 or More Views (06/29/2024 3:01 PM ROOF SERVICE TECHNICIAN) Anatomical Region Laterality Modality Lower Extremities, Knee Digital Radiography Narrative 07/18/2024 10:48 PM CDT Weightbearing views of the bilateral knee are reviewed and demonstrate no acute fractures or destructive osseous lesions. Tricompartmental degenerative changes present with joint space narrowing, osteophyte formation, and subchondral sclerosis. Chql-bz-ttzo joint space narrowing is noted medial compartment with associated varus deformity Una TOTH IMG XR PROCEDURES Final Result * XR Pelvis 1 or 2 Views (06/29/2024 3:01 PM ROOF SERVICE TECHNICIAN) Anatomical Region Laterality Modality Body, Pelvis N/A [...] * ECG 12 lead (06/10/2024 2:10 PM ROOF SERVICE TECHNICIAN) Denys Capone MD ECG ORDERABLES Final R esult * POCT lipid panel (03/18/2024 2:14 PM ROOF SERVICE TECHNICIAN) Cholesterol, POC 248 mg/dL HDL, POC 41 mg/dL Triglycerides, POC 161 mg/dL LDL Cholesterol POC 175 mg/dL Chol/HDL Ratio, POC 4.3 Non-HDL Cholesterol, POC 207 mg/dL Cholesterol Total, POC 248 mg/dL Capillary blood 03/18/2024 2 :14 PM ROOF SERVICE TECHNICIAN us Kerry Joseph NP POINT OF CARE [...] tendency for uric acid stone formation. Source: [facility] Current Interpretive Data was last revised on [...] Final Result CANDIDO CORDERO (LEO) [address] [facility] [place] [address] from Last 3 Months or Most Recently Relevant to Health Maintenance [place] [address] [place] [address] [facility] Advance Directives For more information, please contact: [phone] * Full Code (Latest Code Status on File) Date Activated Date Inactivated Comments 11/23/2023 4:47 AM 11/24/2023 11:08 PM Care Teams Electronic Instrument Trades Worker Relationship Specialty Start Date End Date Tiffany Ugarte MD PCP - General Toys Inspector 06/01/24
--- OUTSIDE RECORDS SUMMARY | 2024-08-13 20:00 | XMS_ITS | Clinical Summary ---
Author Organization [facility] Address [address] [place] [address] Phone Care Team Providers Care Paper Cleaner Name Role Phone Chris Hamlin APRN, JENI [...] BLOOD PRESSURE/HEART 1 Active ergocalciferol (VITAMIN D) 93619 UNIT Capsule TAKE ONE CAPSULE BY MOUTH [...] on file Legal Sex Male 3:38 PM AMMONIA REFRIGERATION WORKER Gender Identity Not on file Sexual Orientation [...] this topic Medical Devices Implanted Type Area Coding Consultant Device Identifier Shelf Expiration Date Model / Serial / Lot Quattro Link Knotless Nocatee, 4.5mm Peek Nocatee Implanted:Qty: 1 on 08/22/2021 by Wilman Tapia MD at [facility] Left: Shoulder [facility] 01/29/2026 [id number] / / [id number] Insurance [facility] Care Teams Paper Cleaner Relationship Specialty Start Date End Date Chris Hamlin APRN, JENI [address] [place] [id number] PCP - General Advanced Practice Nurse 07/23/21
--- OUTSIDE RECORDS SUMMARY | 2024-08-13 20:00 | XMS_ITS | Referral Summary ---
Author Organization [facility] Medical Office Building B Address [address] [place] [address] Care Team Providers Care Girl Friday Name Role Phone Administration, Tiffany ALLEN Primary Care Provide r Unavailable Encounters Date Type Department Care Team Description 08/02/2024 Results Follow-Up [facility] Cardiology [facility] Medical Office Building [address] [place] [address] Denys Capone MD 07/28/2024 Telephone [facility] Medical Group Orthopedic and Sports Medicine [address] [place] [phone] Altaf Naidu MD Surgical Clearance 07/28/2024 Orders Only [facility] Medical [facility] Orthopedic and Sports Medicine [address] [place] [phone] Altaf Naidu MD Pre-op testing (Primary Dx); S/P total knee arthroplasty, left 07/28/2024 2:00 PM CDT Office Visit [facility] Medical [facility] Orthopedic and Sports Medicine [address] [place] [phone] Altaf Naidu MD Primary osteoarthritis of left knee (Primary Dx); HIV infection, unspecified symptom status (HCC) 07/16/2024 Telephone [facility] Medical [facility] Cardiology [address] [place] [address] Harris Nevarez MD 07/01/2024 Telephone [facility] Orthopedics and Sports Medicine [address] [facility] [address] [place] [address] Altaf Naidu MD 06/29/2024 3:05 PM SERVER ADMINISTRATOR Ancillary Procedure [facility] Medical Group Imaging at [address] [address] Bilateral chronic knee pain; Chronic pain of both knees 06/29/2024 3:00 PM SERVER ADMINISTRATOR Ancillary Procedure [facility] Medical Group Imaging at [address] [phone] Bilateral chronic knee pain; Chronic pain of both knees 06/29/[address] [facility] Cardiology [facility] 8th [place] [address] [place] [address] Denys Capone MD 06/29/2024 3:00 PM SERVER ADMINISTRATOR Office Visit [facility] Orthopedic and Sports Medicine [address] [place] [phone] Una Garcia PA Primary osteoarthritis of both knees (Primary Dx); Chronic pain of both knees 06/23/2024 Telephone [facility] Non-Oncology Infusion [address] [place] [address] Harris Nevarez MD 06/22/[address] 8th [place] [address] [place] [address] Danielle Meek 06/22/2024 11:00 AM SERVER ADMINISTRATOR Office Visit [facility] Cardiology [address] [facility] [address] [place] [address] Harris Nevarez MD Supraventricular tachycardia (Primary Dx); Paroxysmal atrial fibrillation (HCC); Coronary artery disease involving [place] coronary artery of [place] heart without angina pectoris 06/10/2024 1:00 PM SERVER ADMINISTRATOR Office Visit [address] 8th [place] [address] [place] [address] Denys Capone MD Supraventricular tachycardia; Acute coronary syndrome (HCC) 05/31/2024 Telephone [facility] Orthopedics and Sports Medicine [address] [place] [address] [address] [place] [phone] Altfa Naidu MD from Last 3 Months Allergies Active Allergy Reactions Criticality Noted Date Comments Atorvastatin Muscle pain Medium 06/14/2015 Hrljrhj-Mja-Vhv Reductase Inhibitors Muscle pain,Unknown Medium 05/24/2019 Info [...] 20 mg tabletIndications: Coronary artery disease involving [place] coronary artery of [place] heart without angina pectoris Take 1 tablet (20 mg total) by mouth daily 90 tablet 3 03/18/20 24 Active folic acid (FOLVITE) 1 mg tablet Take 1 tablet (1,000 mcg total) by mouth daily 04/21/20 24 Active calcitRIOL (ROCALTROL) 0.25 mcg capsule Take 1 capsule (0.25 mcg total) by mouth daily 04/21/20 Active multivitamin-questioned documents examiner als-lutein (Multivitamin 50 Plus) tablet Take by mouth 04/21/20 Active Active Problems Problem Noted Date Diagnosed Date Coronary artery disease invo lving [place] coronary artery of [place] heart without angina pectoris 06/22/2024 NSTEMI (non-ST [...] on file Legal Sex Male 9:53 AM SERVER ADMINISTRATOR Gender Identity Not on file Sexual Orientation Not on file Last Filed Vital Signs Vital Sign Reading Time Taken Comments Blood Pressure 167/112 07/28/2024 1:56 PM CDT Pulse 86 07/28/2024 1:56 PM CDT Temperature 36.3 C (97.4 F) 12/24/2023 3:00 PM CDT Respiratory Rate 16 06/29/2024 3:08 PM SERVER ADMINISTRATOR Oxygen Saturation 95% 06/22/2024 11: 56 AM SERVER ADMINISTRATOR Inhaled Oxygen Concentration - - Weight 119.9 kg (264 lb 6.4 oz) 07/28/2024 1:56 PM CDT Height 190.5 cm (6' 3 ) 07/28/2024 1:56 PM CDT Body Mass Index 33.05 07/28/2024 1:56 PM CDT Plan of Treatment Upcoming Encounters Date Type Department Care Team (Latest Contact Info) Description 09/17/2024 10:55 AM CDT Hospital Encounter [facility] Electrophysiology Lab [address] [place] [address] Denys Capone MD [address] [place] [address] Paroxysmal atrial fibrillation (HCC) 09/17/2024 10:55 AM CDT - 09/17/2024 2:50 PM CDT Surgery [facility] Electrophysiology Lab [address] [place] [address] Denys Capone MD [address] [place] [address] ABLATION ATRIAL FIBRILLATION (A-FIB) VIA PULMONARY VEIN ISOLATION 13318 Medical Devices Implanted Type Area Transport Coordinator Device Identifier Shelf Expiration Date Model / Serial / Lot Holli Endoscopy Gore Suture Alphavent 4.75mm With 3-Strands 1.4mm Xbraid Tt [id number] - [id number] Implanted:Qty: 1 on 12/24/2023 by Altaf Naidu MD at [facility] Right: Shoulder [employer] [id number] 10/23/2024 [id number] / [id number] [employer] Corkscrew L4.75 Mr Tape Full Thread Gore Suture Biocomposite Sterile Disposable Latex Free [id number] - [id number] Implanted:Qty: 1 on 12/24/2023 by Altaf Naidu MD at [facility] Right: Shoulder [employer] [id number] 08/25/2026 [id number] / / [id number] Procedures Procedure Name Priority Date/Time Associated Diagnosis Comments XR KNEE BILATERAL 4 OR MORE VIEWS Schedule Routine, Read Routine (OP Routine) 06/29/2024 3:01 PM SERVER ADMINISTRATOR Bilateral chronic knee pain Chronic pain of both knees XR PELVIS 1 OR 2 VIEWS Schedule Routine, Read Routine (OP Routine) 06/29/2024 3:01 PM SERVER ADMINISTRATOR Bilateral chronic knee pain Chronic pain of both knees ECG 12-LEAD Routine 06/10/2024 2:10 PM SERVER ADMINISTRATOR Supraventricular tachycardia POCT LIPID PANEL Routine 03/18/2024 2:14 PM SERVER ADMINISTRATOR Lipid screening URINALYSIS AND REFLEX TO MICROSCOPIC AND CULTURE Routine 11/23/2023 6:08 PM CDT from Last 3 Months or Most Recently Relevant to Health Maintenance Results * XR Knee Bilateral 4 or More Views (06/29/2024 3:01 PM SERVER ADMINISTRATOR) Anatomical Region Laterality Modality Lower Extremities, Knee Digital Radiography Narrative 07/18/2024 10:48 PM CDT Weightbearing views of the bilateral knee are reviewed and demonstrate no acute fractures or destructive osseous lesions. Tricompartmental degenerative changes present with joint space narrowing, osteophyte formation, and subchondral sclerosis. Msus-wu-nwwm joint space narrowing is noted medial compartment with associated varus deformity Una TOTH IMG XR PROCEDURES Final Result * XR Pelvis 1 or 2 Views (06/29/2024 3:01 PM SERVER ADMINISTRATOR) Anatomical Region Laterality Modality Body, Pelvis N/A [...] * ECG 12 lead (06/10/2024 2:10 PM SERVER ADMINISTRATOR) Denys Capone MD ECG ORDERABLES Final R esult * POCT lipid panel (03/18/2024 2:14 PM SERVER ADMINISTRATOR) Cholesterol, POC 248 mg/dL HDL, POC 41 mg/dL Triglycerides, POC 161 mg/dL LDL Cholesterol POC 175 mg/dL Chol/HDL Ratio, POC 4.3 Non-HDL Cholesterol, POC 207 mg/dL Cholesterol Total, POC 248 mg/dL Capillary blood 03/18/2024 2 :14 PM SERVER ADMINISTRATOR Kerry Joseph NP POINT OF CARE TEST [...] tendency for uric acid stone formation. Source: [facility] GettingHired Current Interpretive Data was last revised on [...] DERABLES Final Result [facility] [address] [facility] Department [place] [address] from Last 3 Months or Most Recently Relevant to Health Maintenance Insurance [facility] Member Subscriber Plan / Payer (Ef fective 1998-Present) Name:Markell Rodriguez Relation to Subscriber:Self Name:Markell Rodriguez Payer ID:[id number] Group ID:Not on file Type:OTHER [employer] Address: [place] [id number] Advance Directives For more information, please contact: [phone] * Full Code (Latest Code Status on File) Date Activated Date Inactivated Comments 11/23/2023 4:47 AM 11/24/2023 11:08 PM Care Teams Girl Friday Relationship Specialty Start Date End Date Tiffany Ugarte MD PCP - General Construction Technician 06/01/24
--- OUTSIDE RECORDS SUMMARY | 2024-08-13 20:00 | XMS_ITS | Encounter Summary ---
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 Nevarez and refaxed to Cece, at [facility] Authorizations. * Telephone Encounter - Esperanza Sawyer MA - 07/20/2024 1:14 PM CDT Called patients [facility] , I was transferred multiple times before I reached the [place] department. I was then told that the patient has not PCP and not seen Cardiology and needs a appointment with both in order to try to get the patients Leqvio approved. Oncepatient is seen the PCP or Air Intercept Controller can prescribe the Leqvio and try and get approved through the patients insurance or if the patient chooses to stay with [facility], we can call and see if his PCP or Air Intercept Controller through the [facility] will approve once he is seen. I called Teresa, from [facility] Auths and she said she had [...] - 07/19/2024 12:26 PM CDT Teresa from [facility] authorization team requesting call back with [...] Description 09/17/2024 10:55 AM CDT Hospital Encounter [facility] Electrophysiology Lab [address] [place] [address] Denys Capone MD [address] [address] Paroxysmal atrial fibrillation (HCC) 09/17/2024 10:55 AM CDT - 09/17/2024 2:50 PM CDT Surgery [facility] Electrophysiology Lab [address] [place] [address] Denys Capone MD [address] [address] ABLATION ATRIAL FIBRILLATION (A-FIB) VIA PULMONARY VEIN ISOLATION [id number] documented as of this encounter Visit Diagnoses Not on filedocumented in this encounter Care Teams Ring Packer Relationship Specialty Start Date End Date Tiffany Ugarte MD PCP - General Music Leader 06/01/24 documented as of this encounter
[2024-08-13] MEDS: COLCHICINE 0.6 MG TABLET PO (20:48)
[2024-08-13 21:52] VITALS: BP 159/96; PULSE 74; RESP 18; O2SAT 100
== END 2024-08-13 21:54 | disposition home or self-care (01) ==
PROVIDERS: Emergency Provider Emergency Medicine
DX: M10.9 Gout, unspecified (principal); R22.42 Localized swelling, mass and lump, left lower limb; I10 Essential (primary) hypertension; I48.91 Unspecified atrial fibrillation; E78.5 Hyperlipidemia, unspecified; K21.9 Gastro-esophageal reflux disease without esophagitis; Z98.1 Arthrodesis status; Z87.891 Personal history of nicotine dependence
CPT/HCPCS: 73610; 73630; 93971; 99284; A9270